=== PATIENT | male | born 1960 | race African-American/Black ===

== ENCOUNTER 2018-10-27 11:39 | Emergency (ER) | payer OTHER ==
[2018-10-27] MEDS ORDERED: ACETAMINOPHEN 325 MG TABLET PO ONE (11:58)
[2018-10-27] MEDS ORDERED: HYDROCODONE/ACETAMINOPHEN 10-325 MG TABLET PO ONE (12:11)
--- NOTE | 2018-10-27 12:24 | RADIOLOGY REPORT (SQ) ---
EXAM DESCRIPTION: ANKLE LEFT COMPLETE COMPLETED DATE/TIME: 10/27/2018 12:15 pm REASON FOR STUDY: Fall, injury to ankle. Pain to left ankle. COMPARISON: None. NUMBER OF VIEWS: Three views. TECHNIQUE: AP, lateral, and oblique radiographic images acquired of the left ankle. LIMITATIONS: None. FINDINGS: MINERALIZATION: Normal. BONES: There is a trimalleolar fracture of the left ankle, with oblique fracture of the distal left f ibula, fracture of the medial malleolus, and fracture of the posterior malleolus. JOINTS: No effusions. Mild widening of the ankle mortise. SOFT TISSUES: Diffuse soft tissue swelling about the left ankle. OTHER: No other significant finding. IMPRESSION: Trimalleolar fracture of the left ankle. TECHNICAL DOCUMENTATION: JOB ID: [id number] All Rights Reserved Reading location - IP/workstation name: [email or web address]
--- NOTE | 2018-10-27 13:01 | ER Document Report ---
HPI - HPI Patient complains to provider of: Left ankle pain Time Seen by Provider: 10/27/18 12:06 Pain Level: 4 Context: Patient is a 58-year-old male presenting to the emergency department after missing a step and everting his left ankle. Patient states he immediately felt pain but was able to put pressure on the left ankle in order to get up off the ground and sit down. Patient denies hitting his head, neck, back. Patient denies any loss of consciousness or vomiting. Patient states he only has pain in his Entire left ankle. Past medical history: Coronary artery disease with stent placement, CHF, hypertension, diabetes, torn ligaments in the left foot Medications: Patient is unsure of medications Allergies: None Patient typically walks with a cane due to the torn ligaments in his left foot - CONSTITUTIONAL Constitutional: DENIES: Fever, Chills - EENT EENT: DENIES: Sore Throat, Ear Pain, Eye problems - NEURO Neurology: DENIES: Headache, Weakness, Vision blurred, Dizzinesss / Vertigo - CARDIOVASCULAR Cardiovascular: DENIES: Chest pain - RESPIRATORY Respiratory: DENIES: Trouble Breathing, Coughing - GASTROINTESTINAL Gastrointestinal: DENIES: Abdominal Pain, Black / Bloody Stools - URINARY Urinary: DENIES: Dysuria, Urgency, Frequency - MUSCULOSKELETAL Musculoskeletal: REPORTS: Extremity pain - L ankle with swelling and pain Past Medical History - General Information source: Patient - Social History Smoking Status: Unknown if Ever Smoked Family History: Reviewed & Not Pertinent Patient has suicidal ideation: No Patient has homicidal ideation: No - Past Medical History Cardiac Medical History: Reports: Hx Coronary Artery Disease, Hx Hypertension Pulmonary Medical History: Reports: Hx Bronchitis - IN PAST Denies: Hx Asthma, Hx COPD, Hx Pneumonia Neurological Medical History: Denies: Hx Cerebrovascular Accident, Hx Seizures Renal/ Medical History: Denies: Hx Peritoneal Dialysis Musculoskeletal Medical History: Denies Hx Arthritis Vertical Provider Document - CONSTITUTIONAL Agree With Documented VS: Yes General Appearance: Severe Distress Notes: GENERAL: Alert, interacts well. No acute distress. HEAD: Normocephalic, atraumatic. EYES: Pupils equal, round, and reactive to light. Extraocular movements intact. ENT: Oral mucosa moist, tongue midline. NECK: Full range of motion. Supple. Trachea midline. LUNGS: Clear to auscultation bilaterally, no wheezes, rales, or rhonchi. No respiratory distress. HEART: Regular rate and rhythm. No murmur ABDOMEN: Soft, non-tender. Non-distended. Bowel sounds present in all 4 quadrants. EXTREMITIES: Moves all 4 extremities spontaneously. normal radial and dorsalis pedis pulses bilaterally. Capillary refill less than 2 seconds distally left lower extremity. Swelling noted entire left ankle with pain upon palpation medial and lateral malleolus. Patient denies pain in his left hip or knee. BACK: no cervical, thoracic, lumbar midline tenderness. No saddle anesthesia, normal distal neurovascular exam. NEUROLOGICAL: Alert and oriented x3. Normal speech. cranial nerves II through XII grossly intact. PSYCH: Normal affect, normal mood. SKIN: Warm, dry, normal turgor. No rashes or lesions noted. - INFECTION CONTROL TRAVEL OUTSIDE OF THE [place] IN LAST 30 DAYS: No Course - Re-evaluation Re-evalutation: 10/27/18 12:[address] Dean, orthopedic who states the patient should be admitted to the hospitalist and medically cleared to then go for surgery to fix a trimalleolar fracture in the left ankle. Then talked to the patient who states [facility] and [facility]. Patient does not want to be admitted at this time and does not want surgery at our facility states he [facility]. 10/27/18 13:[address]. Dean who stated to place the pt. in a three sided ankle splint. Posterior short leg and sugar tong/ankle stirrup. Also stated patient needs to be 100% nonweightbearing. States patient [facility]. Discussed with patient at bedside Importance of following up outpatient at the [facility] for surgery to fix the 3 fractures he has in his ankle. Patient and voiced understanding that they need to follow-up with orthopedics outpatient for surgery. Patient states he does not wish for prescription for narcotics, states he has Tylenol and Motrin at home. - Vital Signs Vital signs: Temp Pulse Resp BP Pulse Ox 98.2 F 100 18 165/77 H 96 10/27/18 11:49 10/27/18 11:49 10/27/18 11:49 10/27/18 11:49 10/27/18 11:49 Discharge - Discharge Clinical Impression: Trimalleolar fracture of ankle, closed Qualifiers: Encounter type: initial encounter Laterality: left Qualified Code(s): S82.852A - Displaced trimalleolar fracture of left lower leg, initial encounter for closed fracture Condition: Stable Disposition: HOME, SELF-CARE Instructions: Use of Crutches ([facility]), Ice & Elevation ([facility]) Additional Instructions: As we discussed you have been seen and treated in the emergency department for something called a tri-malleoli or ankle fracture. This means that 3 bones in your ankle are fractured. Typically these fractures need surgery. You have opted to follow-up [facility]. Please follow-up with them as soon as possible. Please take [id number] Tylenol and Motrin for pain. Please use crutches 100% of the time. Please do not bear any weight on this left ankle. Please do not take splint off until you follow-up with orthopedics and they instructed you to. Please return to the emergency room for any other concerning symptoms. Forms: Elevated Blood Pressure [facility]errals[facility] [Primary Care Provider] - Follow up as needed
[2018-10-27 13:32] VITALS: BP 163/87
== END 2018-10-27 13:32 | disposition home or self-care (01) ==
LOC: ER 11:39
PROC: 2W3RX1Z Immobilization of Left Lower Leg using Splint (ICD-10-PCS; principal; 2018-10-27)
DX: S82.852A Displaced trimalleolar fracture of left lower leg, initial encounter for closed fracture (principal); M25.572 Pain in left ankle and joints of left foot; X50.1XXA Overexertion from prolonged static or awkward postures, initial encounter; I25.10 Atherosclerotic heart disease of native coronary artery without angina pectoris; I50.9 Heart failure, unspecified; I11.0 Hypertensive heart disease with heart failure
CPT/HCPCS: 99283

== ENCOUNTER → 2019-02-10 | Outpatient (CLI) | payer OTHER ==
--- NOTE | 2019-02-10 10:39 | RADIOLOGY REPORT (SQ) ---
EXAM DESCRIPTION: CT LT LOWER EXTREMITY WITHOUT COMPLETED DATE/TIME: 02/10/2019 9:28 am REASON FOR STUDY: S82.855D NONDISP TRIMALLEOL FX L LOW LEG, 7THD S82.855D NONDISP TRIMALLEOL FX L L OW LEG, 7THD COMPARISON: None. TECHNIQUE: Axial imaging performed through the left ankle with reformatted coronal and sagittal imag ing windowed for bone and soft tissues. Images saved to PACS. 3D IMAGING: Were 3D images as MIP, SSD, or volume rendering performed at the work station? Yes. All CT scanners at this facility use dose modulation, iterative reconstruction, and/or weight based d osing when appropriate to reduce radiation dose to as low as reasonably achievable (ALARA). [facility]: Dose Right [facility]: CareDose [facility]: Dose Right [facility]: Teradose 4D [facility]: Smart Technologies LIMITATIONS: None. RADIATION DOSE: CT Rad equipment meets quality standard of care and radiation dose reduction techniq ues were employed. CTDIvol: 4.6 mGy. DLP: 103 mGy-cm. mGy. FINDINGS: SOFT TISSUES: No obvious swelling or foreign body. BONES: Trimalleolar fracture status post plate and screw fixation of fibular component. 2 cancellous screws in the medial component. Widening of the medial mortise. There is callus formation. Fractu re lines are still visible. MINERALIZATION: Osteopenia. OTHER: No other significant finding. IMPRESSION: Healing trimalleolar fracture. Intact hardware. TECHNICAL DOCUMENTATION: JOB ID: [id number] Quality ID # [id number]: Final reports with documentation of one or more dose reduction techniques (e.g., Au tomated exposure control, adjustment of the mA and/or kV according to patient size, use of iterative reconstruction technique) 2010 [employer] All Rights Reserved Reading location - IP/workstation name: [email or web address]
== END ==
LOC: RAD 09:08
PROVIDERS: ATTEND Orthopaedic Surgery
DX: S82.855D Nondisplaced trimalleolar fracture of left lower leg, subsequent encounter for closed fracture with routine healing (principal); X58.XXXD Exposure to other specified factors, subsequent encounter

== ENCOUNTER 2019-03-01 18:12 | Emergency (ER) | payer OTHER ==
[2019-03-01] MEDS ORDERED: NORMAL SALINE 1000 ML 1,000 ML IV ONE ×3 (18:30→21:10)
--- NOTE | 2019-03-01 18:35 | ER Document Report ---
ED Medical Screen (RME) - General Chief Complaint: Altered Mental Status Stated Complaint: ALTERED MENTAL STATUS Time Seen by Provider: 03/01/19 18:25 Primary Care Provider: ORLANDO MCCABE MD [Primary Care Provider] - Follow up as needed Mode of Arrival: Wheelchair Information source: Relative - Notes: Patient is a 58-year-old male who is an insulin-dependent diabetic presenting to the emergency department with complaints of altered mental status, high glucose and left ankle wound issue. Patient's states that over the last couple of days patient has had vomiting, loss of control of his bowels, low-grade fevers and elevated glucose. Patient's states she took his glucose today and it read high on their meter. Patient recently had surgery for a left ankle wound, states she thinks it is infected, states there is a very foul smell coming from it. Patient is sitting in a wheelchair, is sluggish and not very interactive. states he is usually alert, oriented and interacts without any difficulty. Patient was able to squeeze both of my hands that he has equal communications director bilaterally and equal strength bilaterally. Patient was able to smile, puff out his cheeks, raise his shoulders and move both of his lower extremities. He has no neurological deficits on the brief assessment done in triage. Patient is tachycardic with heart rate of 127, charge nurse was made aware of need for room. I have greeted and performed a rapid initial assessment of this patient. A comprehensive ED assessment and evaluation of the patient, analysis of test results and completion of the medical decision making process will be conducted by additional ED providers. Dictation of this chart was performed using voice recognition software; therefore, there may be some unintended grammatical errors. TRAVEL OUTSIDE OF THE [place] IN LAST 30 DAYS: No - Related Data Allergies/Adverse Reactions: No Known Allergies Allergy (Verified 03/01/19 18:13) Past Medical History - Social History Chew tobacco use (# tins/day): No Frequency of alcohol use: None Drug Abuse: None - Past Medical History Cardiac Medical History: Reports: Hx Coronary Artery Disease, Hx Hypertension Pulmonary Medical History: Reports: Hx Bronchitis - IN PAST Denies: Hx Asthma, Hx COPD, Hx Pneumonia Neurological Medical History: Denies: Hx Cerebrovascular Accident, Hx Seizures Renal/ Medical History: Denies: Hx Peritoneal Dialysis Musculoskeltal Medical History: Denies Hx Arthritis Physical Exam - Vital signs Vitals: Temp Pulse Resp BP Pulse Ox 99.1 F 127 H 18 129/94 H 94 03/01/19 18:18 03/01/19 18:18 03/01/19 18:18 03/01/19 18:18 03/01/19 18:18 Course - Vital Signs Vital signs: Temp Pulse Resp BP Pulse Ox 99.1 F 127 H 18 129/94 H 94 03/01/19 18:18 03/01/19 18:18 03/01/19 18:18 03/01/19 18:18 03/01/19 18:18 Doctor's Discharge - Discharge Referrals: ORLANDO MCCABE MD [Primary Care Provider] - Follow up as needed
[2019-03-01] MEDS ORDERED: PIPERACILLIN/TAZOBACTAM 3.375 GM VIAL IV ONE (19:14)
[2019-03-01] MEDS ORDERED: VANCOMYCIN HCL INJ 1000 MG VIAL IV ONE (19:15)
[2019-03-01 19:21] LABS: VENOUS BLOOD BASE EXCESS -5.6 mmol/L; VENOUS BLOOD HCO3 20.6 mmol/L (20-32); VENOUS BLOOD PCO2 42.9 mmHg (35-63); VENOUS BLOOD PH 7.3 (7.30-7.42)
[2019-03-01 19:29] LABS: HEMATOCRIT 33.7 % (37.9-51.0); HEMOGLOBIN 10.6 g/dL (13.5-17.0); MEAN CORPUSCULAR HEMOGLOBIN 24.9 pg (27.0-33.4); MEAN CORPUSCULAR HGB CONC 31.5 g/dL (32.0-36.0); MEAN CORPUSCULAR VOLUME 79 fl (80-97); PLATELET COUNT 598 10^3/uL (150-450); RED BLOOD COUNT 4.27 10^6/uL (4.35-5.55); RED CELL DISTRIBUTION WIDTH 18.4 % (11.5-14.0); WHITE BLOOD COUNT 21.9 10^3/uL (4.0-10.5)
[2019-03-01 19:35] LABS: INTERNATIONAL RATION (INR) 1.21; PROTHROMBIN TIME 15.9 SEC (11.4-15.4)
[2019-03-01 19:36] LABS: PARTIAL THROMBOPLASTIN TIME 33.9 SEC (23.5-35.8)
[2019-03-01 19:48] LABS: ABSOLUTE LYMPHOCYTES# (MANUAL) 0.7 10^3/uL (0.5-4.7); ABSOLUTE MONOCYTES # (MANUAL) 0.9 10^3/uL (0.1-1.4); ABSOLUTE NEUTROPHILS# (MANUAL) 20.4 10^3/uL (1.7-8.2); BAND NEUTROPHILS % (MANUAL) 6 % (3-5); BASOPHILS % (MANUAL) 0 % (0-2); EOSINOPHILS % (MANUAL) 0 % (0-6); LYMPHOCYTES % (MANUAL) 3 % (13-45); METAMYELOCYTES % (MANUAL) 1 % (0); MONOCYTES % (MANUAL) 4 % (3-13); SEGMENTED NEUTROPHILS % (MAN) 86 % (42-78); TOTAL CELLS COUNTED 100
[2019-03-01 19:49] LABS: ALANINE AMINOTRANSFERASE 26 U/L (21-72); ALBUMIN 2.9 g/dL (3.5-5.0); ALKALINE PHOSPHATASE 182 U/L (38-126); ANION GAP 19 (5-19); ASPARTATE AMINO TRANSFERASE 19 U/L (17-59); BILIRUBIN,DIRECT 1.1 mg/dL (0.0-0.4); BILIRUBIN,TOTAL 1.1 mg/dL (0.2-1.3); BLOOD UREA NITROGEN 54 mg/dL (7-20); CALCIUM 8.8 mg/dL (8.4-10.2); CARBON DIOXIDE 19 mmol/L (22-30); CHLORIDE 86 mmol/L (98-107); CREATINE KINASE 104 U/L (55-170); POTASSIUM 5.3 mmol/L (3.6-5.0); SODIUM 123.9 mmol/L (137-145)
[2019-03-01 19:50] LABS: PLATELET CLUMPS PRESENT
[2019-03-01] MEDS ORDERED: CLINDAMYCIN 900 MG/D5W RTU 900 MG/50 ML RTUPB IV ONE (19:50)
[2019-03-01 19:51] LABS: TOXIC GRANULATION SLIGHT; TOXIC VACUOLATION PRESENT
[2019-03-01 19:52] LABS: ANISOCYTOSIS 2+; BURR CELLS 1+; SCHISTOCYTES SLIGHT
[2019-03-01 19:53] LABS: HYPOCHROMASIA 1+; POLYCHROMASIA SLIGHT
[2019-03-01 19:54] LABS: TARGET CELLS SLIGHT; TEAR DROP CELLS SLIGHT
[2019-03-01 19:57] LABS: CREATINE KINASE MB 3.15 ng/mL (<4.55)
[2019-03-01 20:00] LABS: GLUCOSE 632 mg/dL (75-110)
--- NOTE | 2019-03-01 20:00 | RADIOLOGY REPORT (SQ) ---
EXAM DESCRIPTION: ANKLE LEFT AP/LATERAL; FOOT LEFT COMPLETE COMPLETED DATE/TIME: 03/01/2019 7:39 pm; 03/01/2019 7:42 pm REASON FOR STUDY: wound . History of diabetes. COMPARISON: Left ankle x-ray 10/27/2018, CT lower extremity 02/10/2019. NUMBER OF VIEWS: Five views. TECHNIQUE: AP and lateral radiographic images acquired of the left ankle. AP, lateral and oblique radiographic images acquired of the left foot. LIMITATIONS: None. FINDINGS: MINERALIZATION: Normal. BONES: Redemonstration of known trimalleolar fracture at the left ankle with orthopedic hardware at t he distal fibula and medial malleolus. No new acute fracture is identified. There is widening of th e medial clear space. SOFT TISSUES: There is diffuse soft tissue swelling with extensive emphysema at the foot and extendin g along the the anterior aspect of the visualized left lower leg. IMPRESSION: 1. Remote postsurgical and posttraumatic changes at the distal tibia and fibula. Wideni ng of the medial clear space at the left ankle, may be seen with deltoid ligament injury. 2. Diffuse soft tissue swelling with extensive subcutaneous emphysema at the left foot and visualized left lower leg, worrisome for necrotizing soft tissue infection/gas gangrene. COMMENT: Pertinent findings on the imaging study reported as a CRITICAL RESULT to SALINA Dooley t19:50 hrs on 03/01/2019. Category of Critical Result: Diffuse soft tissue swelling with extensive subcutaneous emphysema, wor risome for necrotizing soft tissue infection/gas gangrene. TECHNICAL DOCUMENTATION: JOB ID: [id number] OH-[id number] 2010 [employer]- All Rights Reserved Reading location - IP/workstation name: [email or web address]
[2019-03-01 20:07] LABS: TROPONIN I 0.138 ng/mL
--- NOTE | 2019-03-01 20:14 | RADIOLOGY REPORT (SQ) ---
EXAM DESCRIPTION: XR CHEST 1 VIEW COMPLETED DATE/TME: 03/01/2019 18:31 CLINICAL HISTORY: 58 years, Male, ams, fever COMPARISON: None. NUMBER OF VIEWS: One TECHNIQUE: Single frontal view of the chest was obtained portably LIMITATIONS: None. FINDINGS: Cardiac and mediastinal contours are normal. Patchy left mid to lower lung zone opacity is noted. No pleural effusion or pneumothorax. IMPRESSION: Patchy left mid to lower lung zone opacity. Consider atelectasis or pneumonia to include aspiration. copyright 2010 [employer]- All Rights Reserved
[2019-03-01 20:19] LABS: C-REACTIVE PROTEIN 436.1 mg/L (<10.0)
[2019-03-01] MEDS ORDERED: INSULIN REG, HUMAN 100 UNIT/ML 3 ML VIAL (PYX) IV ONE (20:32)
[2019-03-01] MEDS ORDERED: NOREPINEPHRINE BITARTRATE INJ/PF 4 MG/4 ML SDV IV ONE (20:41)
[2019-03-01] MEDS ORDERED: DEXTROSE 5%-WATER 250 ML with NOREPINEPHRINE BITARTRATE 4 MG IV PRN ×2 (20:43)
--- NOTE | 2019-03-01 20:50 | ER Document Report ---
ED General - General Chief Complaint: Altered Mental Status Stated Complaint: ALTERED MENTAL STATUS Time Seen by Provider: 03/01/19 18:25 Primary Care Provider: ORLANDO MCCABE MD [NO LOCAL MD] - Follow up as needed Mode of Arrival: Wheelchair TRAVEL OUTSIDE OF THE [place] IN LAST 30 DAYS: No - HPI Notes: Patient is a 58-year-old gentleman who brought into the emergency department for evaluation with his . The is the primary historian. Evidently she is concerned about the possibility of an infection at his left ankle wound. He suffered a fracture of the left ankle back in October. The was repaired with ORIF and evidently the patient was healing well. Over the last several weeks he has had infection in that area, however. The patient's states she has not really seen the wound in the last several weeks. Over the last several days he seemed confused. He seemed unbalanced on his feet. He has had multiple episodes of diarrhea. She reexamined to the emergency department for evaluation after uncovering the wound and finding it to be extremely foul-smelling. - Related Data Allergies/Adverse Reactions: No Known Allergies Allergy (Verified 03/01/19 18:13) Past Medical History - General Information source: Patient, Relative - - Social History Smoking Status: Current Every Day Smoker Chew tobacco use (# tins/day): No Frequency of alcohol use: None Drug Abuse: None Family History: CAD, DM Patient has suicidal ideation: No Patient has homicidal ideation: No - Past Medical History Cardiac Medical History: Reports: Hx Coronary Artery Disease, Hx Hypertension Pulmonary Medical History: Reports: Hx Bronchitis - IN PAST Denies: Hx Asthma, Hx COPD, Hx Pneumonia Neurological Medical History: Denies: Hx Cerebrovascular Accident, Hx Seizures Endocrine Medical History: Reports: Hx Diabetes Mellitus Type 2 Renal/ Medical History: Denies: Hx Peritoneal Dialysis Musculoskeletal Medical History: Denies Hx Arthritis Review of Systems - Review of Systems -: Yes ROS unobtainable due to patient's medical condition Physical Exam - Vital signs Vitals: Temp Pulse Resp BP Pulse Ox 99.1 F 127 H 18 129/94 H 94 03/01/19 18:18 03/01/19 18:18 03/01/19 18:18 03/01/19 18:18 03/01/19 18:18 - Notes Notes: 58-year-old gentleman appears his stated age, no acute distress. Head is normocephalic and atraumatic. Pupils are equal, round, reactive to light. Oral mucosa slightly dry. Heart is tachycardic and irregular. Lungs are clear to auscultation bilaterally. Abdomen soft, nontender, normoactive bowel sounds. Examination of the left lower extremity yields an 18 cm open wound to the anterior left ankle. There is clear swelling of muscular tissue, and pulsation consistent with gas gangrene. To light touch distally to that. He does have 3+ pitting edema to the mid tibia. There is foul-smelling drainage noted from the wound. Patient is awake and alert, oriented, but occasionally answer some questions slightly and appropriately. He has a very flat affect. Course - Re-evaluation Re-evalutation: 03/01/19 20:51 Patient presents emergency department for evaluation. While he was playing placed on the monitor for a sepsis evaluation, the patient's heart rate dropped down into the 20s and 30s. Pacer pads were put in place. The patient did have multiple bradycardic episodes, but none of these were sustained. Patient's initial blood pressure had been in the 130s-140s. His blood pressure dropped as well, despite IV fluids. I was concerned at first about the possibility of a diabetic foot infection, further covered him for gas gangrene with clindamycin once the images were evaluated. He was also given Zosyn, vancomycin. Further laboratory investigations revealed an elevated glucose, elevated potassium. He was started on an insulin drip. His blood pressure was addressed with Levophed. Patient's creatinine is markedly elevated, significant change from prior study several months ago. At this point, given the extension of this gas gangrene and concern for necrotizing fasciitis, as well as his likely need for potential dialysis, this patient will require transfer. I do not have current nephrology coverage, nor any dialysis beds at this time. Currently awaiting phone calls from multiple tertiary centers. 03/01/19 22:[address] Weiner, pc tech at [facility]. He happily accepted the patient. We are evaluating for potential air transfer. Currently, patient's blood pressure is 109/69. Standing by with potential pr essor, but he remains stable. 03/01/19 22:08 - Vital Signs Vital signs: Temp Pulse Resp BP Pulse Ox 99.1 F 127 H 20 104/64 100 03/01/19 21:30 03/01/19 18:18 03/01/19 21:30 03/01/19 21:30 03/01/19 21:30 - Laboratory Result Diagrams: 03/01/19 18:45 03/01/19 18:45 Laboratory results interpreted by me: 03/01/19 03/01/19 03/01/19 18:45 18:45 18:45 WBC 21.9 H RBC 4.27 L Hgb 10.6 L Hct 33.7 L MCV 79 L MCH 24.9 L MCHC 31.5 L RDW 18.4 H Plt Count 598 H Seg Neuts % (Manual) 86 H Band Neutrophils % 6 H Lymphocytes % (Manual) 3 L Metamyelocytes % 1 H Abs Neuts (Manual) 20.4 H PT Sodium 123.9 L Potassium 5.3 H Chloride 86 L Carbon Dioxide 19 L BUN 54 H Creatinine 6.60 H Est GFR ( Amer) 11 L Est GFR (Non-Af Amer) 9 L Glucose 632 H* POC Glucose Lactic Acid 2.2 H Magnesium 2.4 H Direct Bilirubin 1.1 H Alkaline Phosphatase 182 H C-Reactive Protein 436.1 H Total Protein 6.0 L Albumin 2.9 L Urine Protein Urine Glucose (UA) Urine Ketones Urine Blood Urine Bilirubin Urine Urobilinogen Ur Leukocyte Esterase 03/01/19 03/01/19 03/01/19 18:45 20:44 21:05 WBC RBC Hgb Hct MCV MCH MCHC RDW Plt Count Seg Neuts % (Manual) Band Neutrophils % Lymphocytes % (Manual) Metamyelocytes % Abs Neuts (Manual) PT 15.9 H Sodium Potassium Chloride Carbon Dioxide BUN Creatinine Est GFR ( Amer) Est GFR (Non-Af Amer) Glucose POC Glucose > 550 H* Lactic Acid Magnesium Direct Bilirubin Alkaline Phosphatase C-Reactive Protein Total Protein Albumin Urine Protein 30 H Urine Glucose (UA) >=500 H Urine Ketones TRACE H Urine Blood SMALL H Urine Bilirubin SMALL H Urine Urobilinogen 4.0 H Ur Leukocyte Esterase TRACE H - Diagnostic Test Radiology reviewed: Reports reviewed - Necrotizing fasciitis/gas gangrene spread throughout the foot and ankle, tracking of the tibia. Chest x-ray unremarkable. - EKG Interpretation by Me Additional EKG results interpreted by me: 03/01/19 22:06 Atrial fibrillation with a rate of 127 bpm. Normal axis, borderline prolonged QT. Nonspecific ST changes, ST changes anterolaterally concerning for ischemia.. No old studies for comparison. Critical Care Note - Critical Care Note Total time excluding time spent on procedures (mins): 40 Discharge - Discharge Clinical Impression: Septic shock, Gas gangrene, Hyperglycemia due to type 2 diabetes mellitus, Hyperkalemia, Acute renal failure, Labile heart rate, New onset atrial fibrillation Condition: Serious Disposition: [facility] Admitting Provider: Dr. Weiner Referrals: ORLANDO MCCABE MD [NO LOCAL MD] - Follow up as needed
[2019-03-01] MEDS ORDERED: NORMAL SALINE 1000 ML 1,000 ML IV PRN (20:53)
[2019-03-01 21:24] LABS: APPEARANCE,URINE CLOUDY; BILIRUBIN,URINE SMALL (NEGATIVE); COLOR,URINE AMBER; GLUCOSE, URINE >=500 mg/dL (NEGATIVE); KETONES,URINE TRACE mg/dL (NEGATIVE); LEUKOCYTE ESTERASE,URINE TRACE (NEGATIVE); NITRITE,URINE NEGATIVE (NEGATIVE); PROTEIN,URINE 30 mg/dL (NEGATIVE); URINE SPECIFIC GRAVITY 1.021
[2019-03-02 00:02] VITALS: BP 93/61
--- NOTE | 2019-03-02 23:38 | EKG REPORT ---
SEVERITY:- ABNORMAL ECG - ATRIAL FIBRILLATION, V-RATE 79-147 LOW VOLTAGE IN FRONTAL LEADS PROBABLE LVH WITH SECONDARY REPOL ABNRM CONSIDER INFERIOR INFARCT ST DEPRESSION, CONSIDER ISCHEMIA, ANT-LAT LDS BORDERLINE PROLONGED QT INTERVAL : Confirmed by: Freddy Jovel 02-Mar-2019 23:37:46
== END 2019-03-02 00:16 | disposition short-term general hospital (02) ==
LOC: ER 18:12
DX: A41.9 Sepsis, unspecified organism (principal); R65.21 Severe sepsis with septic shock; E11.52 Type 2 diabetes mellitus with diabetic peripheral angiopathy with gangrene; E11.65 Type 2 diabetes mellitus with hyperglycemia; A48.0 Gas gangrene; N17.9 Acute kidney failure, unspecified; E87.5 Hyperkalemia; I48.91 Unspecified atrial fibrillation; R19.7 Diarrhea, unspecified; F17.200 Nicotine dependence, unspecified, uncomplicated; I25.10 Atherosclerotic heart disease of native coronary artery without angina pectoris; I10 Essential (primary) hypertension; R00.0 Tachycardia, unspecified; Z98.890 Other specified postprocedural states
CPT/HCPCS: 93005; 99285; 96365; 96367; 36415; 87040; 87086; 82553; 82962; 82550; 83735; 85025; 85610; 85730; 86140; 87077; 80053; 81001; 84484; 87186; 82803; 83605; 73600; 71045; 73630; 93010; J1815; J7030; J3370; J2543

== ENCOUNTER 2020-01-24 15:56 | Emergency (ER) | payer OTHER ==
--- NOTE | 2020-01-24 16:11 | ER Document Report ---
ED Medical Screen (RME) - General Chief Complaint: Wound Infection Stated Complaint: RIGHT FOOT INJURY Time Seen by Provider: 01/24/20 16:04 Primary Care Provider: NICK SOSA DO [Primary Care Provider] - Follow up as needed Mode of Arrival: Wheelchair Information source: Patient, Relative Notes: 59-year-old male presented to ED for complaint of a diabetic foot ulcer to the right foot. He is a left [id number] amputation injuries from the and infection due to diabetes he states he does not smoke he occasionally drinks and does not use any illicit drugs. states he has been trying to treat this wound for about a month and she took the compression stocking off and they noticed a lot more drainage than they had been and then today she noticed more drainage again so she was concerned and brought him to the emergency room to have the ulcer reexamined. He states the only pain he has right now is in his back. I have greeted and performed a rapid initial assessment of this patient. A comprehensive ED assessment and evaluation of the patient, analysis of test results and completion of medical decision making process will be conducted by an additional ED providers. TRAVEL OUTSIDE OF THE [place] IN LAST 30 DAYS: No - Related Data Allergies/Adverse Reactions: No Known Allergies Allergy (Verified 01/24/20 16:06) Past Medical History - Past Medical History Cardiac Medical History: Reports: Hx Coronary Artery Disease, Hx Hypertension Pulmonary Medical History: Reports: Hx Bronchitis - IN PAST Denies: Hx Asthma, Hx COPD, Hx Pneumonia Neurological Medical History: Denies: Hx Cerebrovascular Accident, Hx Seizures Endocrine Medical History: Reports: Hx Diabetes Mellitus Type 2 Renal/ Medical History: Denies: Hx Peritoneal Dialysis Musculoskeltal Medical History: Denies Hx Arthritis Physical Exam - Vital signs Vitals: Temp Pulse Resp BP Pulse Ox 97.8 F 76 18 157/83 H 97 01/24/20 16:01 01/24/20 16:01 01/24/20 16:01 01/24/20 16:01 01/24/20 16:01 Course - Vital Signs Vital signs: Temp Pulse Resp BP Pulse Ox 97.8 F 76 18 157/83 H 97 01/24/20 16:01 01/24/20 16:01 01/24/20 16:01 01/24/20 16:01 01/24/20 16:01 Doctor's Discharge - Discharge Referrals: NICK SOSA DO [Primary Care Provider] - Follow up as needed
[2020-01-24 16:47] LABS: ABSOLUTE BASOPHILS # (AUTO) 0.1 10^3/uL (0.0-0.2); ABSOLUTE EOSINOPHILS # (AUTO) 0.2 10^3/uL (0.0-0.6); ABSOLUTE LYMPHOCYTES (AUTO) 2.5 10^3/uL (0.5-4.7); ABSOLUTE MONOCYTES (AUTO) 0.8 10^3/uL (0.1-1.4); ABSOLUTE NEUT (AUTO) 3.8 10^3/uL (1.7-8.2); BASOPHILS % (AUTO) 1.1 % (0-2); EOSINOPHILS % (AUTO) 2.2 % (0-6); HEMATOCRIT 40.2 % (37.9-51.0); HEMOGLOBIN 13.2 g/dL (13.5-17.0); LYMPHOCYTES % (AUTO) 33.9 % (13-45); MEAN CORPUSCULAR HGB CONC 32.9 g/dL (32.0-36.0); MEAN CORPUSCULAR VOLUME 82 fl (80-97); MONOCYTES % (AUTO) 11.1 % (3-13); PLATELET COUNT 313 10^3/uL (150-450); RED CELL DISTRIBUTION WIDTH 15.3 % (11.5-14.0); SEGMENTED NEUTROPHILS % (AUTO) 51.7 % (42-78); TOTAL CELLS COUNTED % (AUTO) 100 %; WHITE BLOOD COUNT 7.4 10^3/uL (4.0-10.5)
--- NOTE | 2020-01-24 16:56 | RADIOLOGY REPORT (SQ) ---
EXAM DESCRIPTION: FOOT RIGHT COMPLETE COMPLETED DATE/TIME: 01/24/2020 4:45 pm REASON FOR STUDY: Right foot ulcer COMPARISON: None. EXAM PARAMETERS: NUMBER OF VIEWS: Three views. TECHNIQUE: AP, lateral and oblique radiographic images acquired of the right foot. LIMITATIONS: None. FINDINGS: MINERALIZATION: Normal. BONES: No acute fracture or dislocation. No worrisome bone lesions. JOINTS: No effusion. SOFT TISSUES: No significant soft tissue swelling. No radiopaque foreign body. OTHER: No other significant finding. IMPRESSION: NO FRACTURE. No significant soft tissue swelling. No radiopaque foreign body. TECHNICAL DOCUMENTATION: JOB ID: [id number] [place]-72 2010 [employer]- All Rights Reserved Reading location - IP/workstation name: [employer]
[2020-01-24 17:05] LABS: ALKALINE PHOSPHATASE 115 U/L (38-126); ANION GAP 11 (5-19); ASPARTATE AMINO TRANSFERASE 29 U/L (17-59); BILIRUBIN,DIRECT 0.2 mg/dL (0.0-0.4); BILIRUBIN,TOTAL 0.9 mg/dL (0.2-1.3); BLOOD UREA NITROGEN 21 mg/dL (7-20); CARBON DIOXIDE 27 mmol/L (22-30); CHLORIDE 101 mmol/L (98-107); GLUCOSE 292 mg/dL (75-110); POTASSIUM 4.6 mmol/L (3.6-5.0); TOTAL PROTEIN 7.3 g/dL (6.3-8.2)
--- NOTE | 2020-01-24 18:40 | ER Document Report ---
ED Wound - General Chief Complaint: Wound Infection Stated Complaint: RIGHT FOOT INJURY Time Seen by Provider: 01/24/20 16:04 Primary Care Provider: NICK SOSA DO [Primary Care Provider] - Follow up as needed Mode of Arrival: Wheelchair Notes: RME HPI: 59-year-old male presented to ED for complaint of a diabetic foot ulcer to the right foot. He is a left [id number] amputation injuries from the and infection due to diabetes he states he does not smoke he occasionally drinks and does not use any illicit drugs. states he has been trying to treat this wound for about a month and she took the compression stocking off and they noticed a lot more drainage than they had been and then today she noticed more drainage again so she was concerned and brought him to the emergency room to have the ulcer reexamined. He states the only pain he has right now is in his back. TRAVEL OUTSIDE OF THE [place] IN LAST 30 DAYS: No - Related Data Allergies/Adverse Reactions: No Known Allergies Allergy (Verified 01/24/20 16:06) Home Medications: gabapentin, amlodipine, ferrous sulfate, venlaxaxine, metoprolol succ, flomax, asa Past Medical History - General Information source: Patient, Relative - Social History Smoking Status: Never Smoker Chew tobacco use (# tins/day): No Frequency of alcohol use: Occasional Drug Abuse: None Family History: CAD, DM Patient has suicidal ideation: No Patient has homicidal ideation: No - Past Medical History Cardiac Medical History: Reports: Hx Coronary Artery Disease, Hx Hypertension Pulmonary Medical History: Reports: Hx Bronchitis - IN PAST Denies: Hx Asthma, Hx COPD, Hx Pneumonia Neurological Medical History: Denies: Hx Cerebrovascular Accident, Hx Seizures Endocrine Medical History: Reports: Hx Diabetes Mellitus Type 2 Renal/ Medical History: Denies: Hx Peritoneal Dialysis Musculoskeletal Medical History: Denies Hx Arthritis Review of Systems - Review of Systems Constitutional: No symptoms reported EENT: No symptoms reported Cardiovascular: No symptoms reported Respiratory: No symptoms reported Gastrointestinal: No symptoms reported Genitourinary: No symptoms reported Male Genitourinary: No symptoms reported Musculoskeletal: No symptoms reported Skin: See HPI Hematologic/Lymphatic: No symptoms reported Neurological/Psychological: No symptoms reported Physical Exam - Vital signs Vitals: Temp Pulse Resp BP Pulse Ox 97.8 F 76 18 157/83 H 97 01/24/20 16:01 01/24/20 16:01 01/24/20 16:01 01/24/20 16:01 01/24/20 16:01 - Notes Notes: PHYSICAL EXAMINATION: GENERAL: Well-appearing, well-nourished and in no acute distress. HEAD: Atraumatic, normocephalic. EYES: Pupils equal round extraocular movements intact, conjunctiva are normal. ENT: Nares patent NECK: Normal range of motion LUNGS: No respiratory distress Musculoskeletal: Normal range of motion NEUROLOGICAL: Normal speech, normal gait. PSYCH: Normal mood, normal affect. SKIN: Diabetic ulcer noted to lateral aspect of right foot, slight surrounding erythema, no skin breakdown noted. No foul smell. Strong dorsalis pedis pulse. Course - Re-evaluation Re-evalutation: Foot X-Ray 01/24/20 16:11 IMPRESSION: NO FRACTURE. No significant soft tissue swelling. No radiopaque foreign body. Microbiology 01/24/20 19:17 Gram Stain - Preliminary Foot - Right Wound Culture - Preliminary 01/24/20 18:19 Urine Culture - Final Clean Catch Midstream Klebsiella Pneumoniae Laboratory 01/24/20 01/24/20 01/24/20 16:25 16:25 18:19 WBC 7.4 RBC 4.90 Hgb 13.2 L Hct 40.2 MCV 82 MCH 27.0 MCHC 32.9 RDW 15.3 H Plt Count 313 Lymph % (Auto) 33.9 [place] % (Auto) 11.1 Eos % (Auto) 2.2 Baso % (Auto) 1.1 Absolute Neuts (auto) 3.8 Absolute Lymphs (auto) 2.5 Absolute Monos (auto) 0.8 Absolute Eos (auto) 0.2 Absolute Basos (auto) 0.1 Seg Neutrophils % 51.7 Sodium 138.5 Potassium 4.6 Chloride 101 Carbon Dioxide 27 Anion Gap 11 BUN 21 H Creatinine 1.63 H Est GFR ( Amer) 53 L Est GFR (MDRD) Non-Af 44 L Glucose 292 H Calcium 9.0 Total Bilirubin 0.9 Direct Bilirubin 0.2 Neonat Total Bilirubin Not Reportable Neonat Direct Bilirubin Not Reportable Neonat Indirect Bili Not Reportable AST 29 ALT 33 Alkaline Phosphatase 115 Total Protein 7.3 Albumin 4.0 Urine Color HALIMA Urine Appearance CLOUDY Urine pH 6.0 Ur Specific [place] 1.009 Urine Protein 100 H Urine Glucose (UA) >=500 H Urine Ketones NEGATIVE Urine Blood MODERATE H Urine Nitrite (Reflex) NEGATIVE Urine Bilirubin NEGATIVE Urine Urobilinogen NEGATIVE Leukocyte Esterase Rfl MODERATE H Urine RBC (Auto) 15 Urine Bacteria (Auto) 3+ Urine WBC (Reflex) > 182 Urine WBC Clumps MOD Squamous Epi Cells Auto <1 Urine Mucus (Auto) RARE Urine Ascorbic Acid NEGATIVE - Vital Signs Vital signs: Temp Pulse Resp BP Pulse Ox 97.8 F 71 17 131/74 H 98 01/24/20 19:30 01/24/20 19:30 01/24/20 19:30 01/24/20 19:30 01/24/20 19:30 - Laboratory Result Diagrams: 01/24/20 16:25 01/24/20 16:25 Laboratory results interpreted by me: 01/24/20 01/24/20 01/24/20 16:25 16:25 18:19 Hgb 13.2 L RDW 15.3 H BUN 21 H Creatinine 1.63 H Est GFR ( Amer) 53 L Est GFR (MDRD) Non-Af 44 L Glucose 292 H Urine Protein 100 H Urine Glucose (UA) >=500 H Urine Blood MODERATE H Leukocyte Esterase Rfl MODERATE H Discharge - Discharge Clinical Impression: Diabetic foot ulcer Qualifiers: Diabetic foot ulcer location: midfoot Diabetes mellitus type: type 2 Lateral ity: right Non-pressure ulcer stage: unspecified non-pressure ulcer stage Qualified Code(s): E11.621 - Type 2 diabetes mellitus with foot ulcer; L97.419 - Non-pressure chronic ulcer of right heel and midfoot with unspecified severity UTI (urinary tract infection) Qualifiers: Urinary tract infection type: site unspecified Hematuria presence: without hematuria Qualified Code(s): N39.0 - Urinary tract infection, site not specified Condition: Stable Disposition: HOME, SELF-CARE Additional Instructions: Please take medications as prescribed. I sent them electronically to the [facility] drugstore that you have chosen however I believe you may be able to get them for free at [facility] as they have a free antibiotic program for certain antibiotics. (I have provided you with a printed copy of the antibiotics in case you choose this option .) I would give them a call and ask. Please keep the appointment you have scheduled with the survey supervisor as this is very important. Return to the emergency department for any new or worsening symptoms. Keep the wound clean and dry. Prescriptions: Sulfamethoxazole/Trimethoprim [Bactrim Ds Tablet] 1 tab PO BID #28 tablet Cephalexin [Keflex] 500 mg PO QID #56 capsule Referrals: NICK SOSA DO [Primary Care Provider] - Follow up as needed
[2020-01-24 18:50] LABS: APPEARANCE,URINE CLOUDY; BILIRUBIN,URINE NEGATIVE (NEGATIVE); COLOR,URINE AMBER; GLUCOSE, URINE >=500 mg/dL (NEGATIVE); KETONES,URINE NEGATIVE (NEGATIVE); PROTEIN,URINE 100 mg/dL (NEGATIVE); URINE SPECIFIC GRAVITY 1.009; UROBILINOGEN,URINE NEGATIVE mg/dL (<2.0)
[2020-01-24 19:31] VITALS: BP 131/74
== END 2020-01-24 19:31 | disposition home or self-care (01) ==
LOC: ER 15:56
DX: N39.0 Urinary tract infection, site not specified (principal); E11.621 Type 2 diabetes mellitus with foot ulcer; L97.419 Non-pressure chronic ulcer of right heel and midfoot with unspecified severity; I25.10 Atherosclerotic heart disease of native coronary artery without angina pectoris; I10 Essential (primary) hypertension; Z89.612 Acquired absence of left leg above knee
CPT/HCPCS: 36415; 80053; 81001; 85025; 87070; 87086; 87088; 87186; 87205; 99283

== ENCOUNTER → 2020-02-12 | Outpatient (CLI) | payer OTHER ==
[2020-02-12 08:59] LABS: ALBUMIN 3.9 g/dL (3.5-5.0); ALKALINE PHOSPHATASE 108 U/L (38-126); ANION GAP 10 (5-19); ASPARTATE AMINO TRANSFERASE 32 U/L (17-59); BILIRUBIN,DIRECT 0.3 mg/dL (0.0-0.4); BILIRUBIN,TOTAL 0.5 mg/dL (0.2-1.3); BLOOD UREA NITROGEN 24 mg/dL (7-20); CALCIUM 9.2 mg/dL (8.4-10.2); CARBON DIOXIDE 21 mmol/L (22-30); CHLORIDE 108 mmol/L (98-107); CHOLESTEROL 164.48 mg/dL (0-200); GLUCOSE 95 mg/dL (75-110); POTASSIUM 5.4 mmol/L (3.6-5.0); TOTAL PROTEIN 7.4 g/dL (6.3-8.2); TRIGLYCERIDES 101 mg/dL (<150)
[2020-02-12 09:12] LABS: DIRECT LDL 108 mg/dL (<100)
== END ==
LOC: OD 07:06
PROVIDERS: ATTEND Specialist
DX: I25.10 Atherosclerotic heart disease of native coronary artery without angina pectoris (principal); I10 Essential (primary) hypertension; E08.40 Diabetes mellitus due to underlying condition with diabetic neuropathy, unspecified; F32.9 Major depressive disorder, single episode, unspecified; E78.5 Hyperlipidemia, unspecified; I25.5 Ischemic cardiomyopathy; I48.92 Unspecified atrial flutter; I25.2 Old myocardial infarction; R01.1 Cardiac murmur, unspecified; R94.31 Abnormal electrocardiogram [ECG] [EKG]; Z98.61 Coronary angioplasty status; Z79.899 Other long term (current) drug therapy; Z89.612 Acquired absence of left leg above knee
CPT/HCPCS: 36415; 80048; 80061; 80076; 83036

== ENCOUNTER 2020-04-09 20:04 | Inpatient (IN) | payer OTHER, MEDICARE ==
--- NOTE | 2020-04-09 20:39 | ER Document Report ---
ED Medical Screen (RME) - General Chief Complaint: Foot Pain Stated Complaint: POSSIBLE RIGHT FOOT ULCER Time Seen by Provider: 04/09/20 20:29 Primary Care Provider: HANNAH STRATTON MD [Primary Care Provider] - Follow up as needed Notes: Patient is a 59-year-old male who presents to the emergency department with a wound to his right lateral foot. Patient states that he has had this wound since January. Patient states that he has seen vascular surgery and they suspect that he has some blockages in his right foot, but states that no actual imaging has been done. Patient had a foot x-ray here and back in January. This vascular surgeon melia labs started him on Cipro. He took 1 day of ciprofloxacin. Patient had a BKA on his left leg. Exam: Purulent drainage noted from right lateral foot. I have greeted and performed a rapid initial assessment of this patient. A comprehensive ED assessment and evaluation of the patient, analysis of test results and completion of medical decision making process will be conducted by an additional ED providers. TRAVEL OUTSIDE OF THE [place] IN LAST 30 DAYS: No - Related Data Allergies/Adverse Reactions: No Known Allergies Allergy (Verified 01/24/20 16:06) Past Medical History - Past Medical History Cardiac Medical History: Reports: Hx Coronary Artery Disease, Hx Hypertension Pulmonary Medical History: Reports: Hx Bronchitis - IN PAST Denies: Hx Asthma, Hx COPD, Hx Pneumonia Neurological Medical History: Denies: Hx Cerebrovascular Accident, Hx Seizures Endocrine Medical History: Reports: Hx Diabetes Mellitus Type 2 Renal/ Medical History: Denies: Hx Peritoneal Dialysis Musculoskeltal Medical History: Denies Hx Arthritis Physical Exam - Vital signs Vitals: Temp Pulse Resp BP Pulse Ox 98.5 F 90 18 107/57 L 93 04/09/20 20:13 04/09/20 20:13 04/09/20 20:13 04/09/20 20:13 04/09/20 20:13 Course - Vital Signs Vital signs: Temp Pulse Resp BP Pulse Ox 98.5 F 90 18 107/57 L 93 04/09/20 20:13 04/09/20 20:13 04/09/20 20:13 04/09/20 20:13 04/09/20 20:13 Doctor's Discharge - Discharge Referrals: HANNAH STRATTON MD [Primary Care Provider] - Follow up as needed
[2020-04-09 21:14] LABS: ABSOLUTE BASOPHILS # (AUTO) 0.1 10^3/uL (0.0-0.2); ABSOLUTE LYMPHOCYTES (AUTO) 1.2 10^3/uL (0.5-4.7); ABSOLUTE MONOCYTES (AUTO) 1.7 10^3/uL (0.1-1.4); ABSOLUTE NEUT (AUTO) 15.6 10^3/uL (1.7-8.2); BASOPHILS % (AUTO) 0.3 % (0-2); HEMOGLOBIN 10.6 g/dL (13.5-17.0); LYMPHOCYTES % (AUTO) 6.3 % (13-45); MEAN CORPUSCULAR HEMOGLOBIN 26.4 pg (27.0-33.4); MEAN CORPUSCULAR HGB CONC 32.1 g/dL (32.0-36.0); MEAN CORPUSCULAR VOLUME 82 fl (80-97); MONOCYTES % (AUTO) 9.1 % (3-13); PLATELET COUNT 441 10^3/uL (150-450); RED BLOOD COUNT 4.01 10^6/uL (4.35-5.55); RED CELL DISTRIBUTION WIDTH 15.1 % (11.5-14.0); SEGMENTED NEUTROPHILS % (AUTO) 84.3 % (42-78); TOTAL CELLS COUNTED % (AUTO) 100 %; WHITE BLOOD COUNT 18.5 10^3/uL (4.0-10.5)
[2020-04-09 21:38] LABS: INTERNATIONAL RATION (INR) 1.22; PROTHROMBIN TIME 15.5 SEC (11.4-15.4)
[2020-04-09 21:42] LABS: ALBUMIN 3.3 g/dL (3.5-5.0); ALKALINE PHOSPHATASE 116 U/L (38-126); ANION GAP 13 (5-19); ASPARTATE AMINO TRANSFERASE 26 U/L (17-59); BILIRUBIN,DIRECT 0.1 mg/dL (0.0-0.4); BILIRUBIN,TOTAL 1.1 mg/dL (0.2-1.3); BLOOD UREA NITROGEN 27 mg/dL (7-20); CARBON DIOXIDE 23 mmol/L (22-30); CHLORIDE 96 mmol/L (98-107); TOTAL PROTEIN 6.6 g/dL (6.3-8.2)
[2020-04-09 22:06] LABS: CALCIUM 8.7 mg/dL (8.4-10.2)
--- NOTE | 2020-04-09 22:09 | RADIOLOGY REPORT (SQ) ---
EXAM DESCRIPTION: XR FOOT 3 OR MORE VIEWS COMPLETED DATE/TME: 04/09/2020 20:34 CLINICAL HISTORY: 59 years, Male, right foot wound COMPARISON: Prior study from 01/24/2020. NUMBER OF VIEWS: 3 TECHNIQUE: Frontal, oblique, and lateral radiographs were obtained LIMITATIONS: None. FINDINGS: Visualized is focal soft tissue swelling/gas located about the soft tissues just lateral to the fifth metatarsal base. In addition, there is cortical resorption of bone about the lateral aspect of the fifth metatarsal base in association with a pathologic fracture deformity. Osteopenia is evident. No additional osseous anomalies are appreciated. There is diffuse soft tissue swelling about the dorsum of the hindfoot extending into the forefoot. IMPRESSION: Findings are consistent with osteomyelitis involving the lateral aspect of the fifth metatarsal base. Associated underlying pathologic fracture deformity. Superimposed foci of soft tissue gas at this site could indicate infection with a gas-forming organism. copyright 2010 [employer]- All Rights Reserved
--- NOTE | 2020-04-09 22:42 | RADIOLOGY REPORT (SQ) ---
EXAM DESCRIPTION: US LOWER EXTREMITY ARTERIES LIMITED/UNILATERAL/FOLLOW UP COMPLETED DATE/TME: 04/09/2020 20:33 CLINICAL HISTORY: 59 years Male, right foot wound; possible blockages Comparison: None. TECHNIQUE: Doppler sonogram. Targeted exam for requested parameters. LIMITATIONS: No TERESA. FINDINGS: RIGHT SIDE Peak systolic velocity (PSV) CERTIFICATION AND SELECTION SPECIALIST: PSV: 170 cm/s Deep Femoral: 90 cm/s Proximal SFA: PSV: 20 cm/s Mid SFA: PSV: 40 cm/s Distal SFA: PSV: 70 cm/s Proximal Popliteal: PSV: 40 cm/s Distal Popliteal: PSV: 70 cm/s Anterior Tibial: PSV: 45 cm/s Dorsalis Pedis: PSV: 50 cm/s Other:Atherosclerotic vascular disease. Patent, monophasic flow throughout. Low resistance flow. Impression: Targeted exam for requested parameters.
[2020-04-09] MEDS ORDERED: NORMAL SALINE 1000 ML 1,000 ML IV ONE (22:43)
[2020-04-09] MEDS ORDERED: VANCOMYCIN HCL INJ 1000 MG VIAL IV ONE (23:44)
[2020-04-09] MEDS ORDERED: CEFEPIME 2 GM/D5W RTU 2 GM/50 ML RTUPB IV ONE (23:45)
[2020-04-10] MEDS ORDERED: NORMAL SALINE IV ONE (00:04)
--- NOTE | 2020-04-10 00:16 | ER Document Report ---
Entered by CHENG OSPINA SCRIBE 04/10/20 0001 Acting as scribe for:HUMBLE GUALLPA IV, MD ED Extremity Problem, Lower - General Chief Complaint: Wound Infection Stated Complaint: POSSIBLE RIGHT FOOT ULCER Time Seen by Provider: 04/09/20 20:29 Primary Care Provider: HANNAH STRATTON MD [ACTIVE STAFF] - Follow up as needed Mode of Arrival: Wheelchair Information source: Patient, Relative - Notes: This 59 year old male patient with a history of type 2 diabetes mellitus presents to the ED today accompanied by his with complaints of possible wound infection to his right foot that started x2 months ago. states that although they noticed the wound in January, it has only become worse this past week with increased swelling and discharge. reports that the patient was seen by a vascular specialist x4 days ago and received a topical cream for the wound, but was not given any antibiotics at that time. Patient reports that he had a left AKA in February 2019 due to a left ankle infection. TRAVEL OUTSIDE OF THE [place] IN LAST 30 DAYS: No - Related Data Allergies/Adverse Reactions: No Known Allergies Allergy (Verified 04/09/20 21:34) Home Medications: list copied Past Medical History - General Information source: Patient, Relative - - Social History Smoking Status: Former Smoker Cigarette use (# per day): No Chew tobacco use (# tins/day): No Smoking Education Provided: No Lives with: Spouse/Significant other Family History: Reviewed & Not Pertinent, CAD, DM Patient has suicidal ideation: No Patient has homicidal ideation: No - Past Medical History Cardiac Medical History: Reports: Hx Coronary Artery Disease, Hx Hypertension Pulmonary Medical History: Reports: Hx Bronchitis - IN PAST Endocrine Medical History: Reports: Hx Diabetes Mellitus Type 2 Past Surgical History: Reports: Hx Orthopedic Surgery - Left AKA February 2020 Review of Systems - Review of Systems Constitutional: No symptoms reported EENT: No symptoms reported Cardiovascular: No symptoms reported Respiratory: No symptoms reported Gastrointestinal: No symptoms reported Genitourinary: No symptoms reported Male Genitourinary: No symptoms reported Musculoskeletal: See HPI, Other - Right foot pain Skin: See HPI, Other - Right foot wound with swelling and discharge Hematologic/Lymphatic: No symptoms reported Neurological/Psychological: No symptoms reported -: Yes All other systems reviewed and negative Physical Exam - Vital signs Vitals: Temp Pulse Resp BP Pulse Ox 98.5 F 90 18 107/57 L 93 04/09/20 20:13 04/09/20 20:13 04/09/20 20:13 04/09/20 20:13 04/09/20 20:13 - General General appearance: Alert In distress: None - HEENT Head: Normocephalic, Atraumatic Eyes: Normal Pupils: PERRL - Respiratory Respiratory status: No respiratory distress Chest status: Nontender Breath sounds: Normal Chest palpation: Normal - Cardiovascular Rhythm: Regular Heart sounds: Normal auscultation Murmur: No Friction rub: No Gallop: None auscultated - Abdominal Inspection: Normal Distension: No distension Bowel sounds: Normal Tenderness: Nontender - Abdomen soft Organomegaly: No organomegaly - Back Back: Normal, Nontender - Extremities General upper extremity: Normal inspection General lower extremity: Other - Left AKA Foot: Edema - Right foot is diffusely swollen, Other - Neurological Neuro grossly intact: Yes Orientation: AAOx4 - Psychological Associated symptoms: Normal affect, Normal mood - Skin Skin irregularity: other - 25 cm ulceration noted to right lateral surface of right foot with purulent appearing discharge and surrounding moderate erythema Course - Re-evaluation Re-evalutation: 04/10/20 00:48 Results of ED MSE discussed with patient and patient's significant other. All questions were answered. - Vital Signs Vital signs: Temp Pulse Resp BP Pulse Ox 98.3 F 90 13 113/80 98 04/10/20 00:25 04/09/20 20:13 04/09/20 23:01 04/09/20 23:01 04/09/20 23:01 - Laboratory Result Diagrams: 04/09/20 20:52 04/09/20 20:52 Laboratory results interpreted by me: 04/09/20 04/09/20 04/09/20 20:52 20:52 20:52 WBC 18.5 H RBC 4.01 L Hgb 10.6 L Hct 33.0 L MCH 26.4 L RDW 15.1 H Lymph % (Auto) 6.3 L Absolute Neuts (auto) 15.6 H Absolute Monos (auto) 1.7 H Seg Neutrophils % 84.3 H PT 15.5 H Sodium 131.9 L Chloride 96 L BUN 27 H Creatinine 2.32 H Est GFR ( Amer) 35 L Est GFR (MDRD) Non-Af 29 L Glucose 538 H* Lactic Acid Albumin 3.3 L 04/09/20 20:52 WBC RBC Hgb Hct MCH RDW Lymph % (Auto) Absolute Neuts (auto) Absolute Monos (auto) Seg Neutrophils % PT Sodium Chloride BUN Creatinine Est GFR ( Amer) Est GFR (MDRD) Non-Af Glucose Lactic Acid 2.5 H Albumin - Diagnostic Test Radiology reviewed: Reports reviewed - Consults dr. elena Time consulted: 00:14 - stated he would consult on patient and asked pt to be made npo Reason for consultation: 04/10/20 00:49 osteomyelitis Consulted provider: will see as inpatient dr. francisco hammond Time consulted: 00:42 - agreed to admit patient Reason for consultation: 04/10/20 00:50 osteomyelitis Consulted provider: will see as inpatient Discharge - Discharge Clinical Impression: Gas gangrene Osteomyelitis Qualifiers: Osteomyelitis type: unspecified type Osteomyelitis location: foot Laterality: right Qualified Code(s): M86.9 - Osteomyelitis, unspecified Condition: Good Disposition: ADMITTED INPATIENT Admitting Provider: Tobias (Hospitalist) Unit Admitted: Telemetry Referrals: HANNAH STRATTON MD [ACTIVE STAFF] - Follow up as needed I personally performed the services described in the documentation, reviewed and edited the documentation which was dictated to the scribe in my presence, and it accurately records my words and actions.
[2020-04-10] MEDS ORDERED: GLUCAGON,HUMAN RECOMB 1 MG INJ IM PRN (00:52)
[2020-04-10] MEDS ORDERED: MAGNESIUM HYDROXIDE SUSP 30 ML UDCUP PO PRN (00:52)
[2020-04-10] MEDS ORDERED: MAG HYDROX/AL HYDROX/SIMETH SUSP 30 ML UDCUP PO PRN (00:52)
[2020-04-10] MEDS ORDERED: ONDANSETRON HCL INJ/PF 4 MG/2 ML SDV IV PRN ×2 (00:52→10:40)
[2020-04-10] MEDS ORDERED: DEXTROSE 50%-WATER 25 GM/50 ML DISP.SYRIN IV PRN ×2 (00:52)
[2020-04-10] MEDS ORDERED: DEXTROSE 40% GEL 15 GM TUBE PO PRN ×2 (00:52)
[2020-04-10] MEDS ORDERED: HYDRALAZINE HCL INJ/PF 20 MG/1 ML SDV IV PRN (00:52)
[2020-04-10] MEDS ORDERED: HEPARIN SOD (PORCINE) 5,000 UNIT/ML 1 ML VIAL SUBCUT ONE (01:30)
--- NOTE | 2020-04-10 05:27 | PDOC H&P ---
History of Present Illness Admission Date/PCP: 04/10/20 01:02 Patient complains of: Right foot ulcer History of Present Illness: VITO FRANCISCO JR is a 59 year old male with a past medical history of chronic kidney disease stage IV, diabetes, peripheral vascular disease status post left AKA and hypertension. He presents with 2 months of worsening right foot ulcer despite management at the wound care clinic prompting evaluation the emergency department for increased erythema and pain. In the emergency department he is found to have gas gangrene on imaging with leukocytosis. Surgery is consulted recommending amputation he is referred to the hospitalist for admission. Past Medical History Cardiac Medical History: Reports: Coronary Artery Disease, Hypertension Pulmonary Medical History: Reports: Bronchitis - IN PAST Denies: Asthma, Chronic Obstructive Pulmonary Disease (COPD), Pneumonia Neurological Medical History: Denies: Seizures Endocrine Medical History: Reports: Diabetes Mellitus Type 2 Musculoskeltal Medical History: Denies: Arthritis Psychiatric Medical History: Denies: Alcohol Dependency, Depression, Tobacco Dependency Hematology: Denies: Anemia Past Surgical History Past Surgical History: Reports: Orthopedic Surgery - Left AKA February 2020 Social History Lives with: Spouse/Significant other Smoking Status: Former Smoker - Advance Directive Resuscitation Status: Full Code Family History Family History: CAD, DM Parental Family History Reviewed: Yes Children Family History Reviewed: Yes Sibling(s) Family History Reviewed.: Yes Medication/Allergy Home Medications: Amlodipine Besylate [Norvasc 10 mg Tablet] 10 mg PO DAILY 08/16/16 Aspirin [Aspirin 81 mg Chewable Tablet] 81 mg PO DAILY 08/16/16 Gabapentin [Gralise] 600 mg PO QPM 08/16/16 Insulin Glargine,Hum.rec.anlog [Lantus Insulin 100 Unit/1 ml 10 ml] 12 unit SUBCUT QHS 04/10/20 Isosorbide Mononitrate [Imdur 30 mg Tablet.er] 30 mg PO DAILY 04/10/20 Losartan Potassium [Cozaar 25 mg Tablet] 25 mg PO DAILY 04/10/20 Metoprolol Succinate [Toprol Xl 50 mg Tab.sr] 50 mg PO DAILY 04/10/20 Tamsulosin HCl [Flomax] 0.4 mg PO DAILY 04/10/20 Venlafaxine HCl 37.5 mg PO DAILY 04/10/20 Allergies/Adverse Reactions: No Known Allergies Allergy (Verified 04/09/20 21:34) Review of Systems Constitutional: ABSENT: chills, fever(s), headache(s), weight gain, weight loss Eyes: ABSENT: visual disturbances Ears: ABSENT: hearing changes Cardiovascular: ABSENT: chest pain, dyspnea on exertion, edema, orthropnea, palpitations Respiratory: ABSENT: cough, hemoptysis Gastrointestinal: ABSENT: abdominal pain, constipation, diarrhea, hematemesis, hematochezia, nausea, vomiting Genitourinary: ABSENT: dysuria, hematuria Musculoskeletal: ABSENT: joint swelling Integumentary: ABSENT: rash, wounds Neurological: ABSENT: abnormal gait, abnormal speech, confusion, dizziness, focal weakness, syncope Psychiatric: ABSENT: anxiety, depression, homidical ideation, suicidal ideation Endocrine: ABSENT: cold intolerance, heat intolerance, polydipsia, polyuria Hematologic/Lymphatic: ABSENT: easy bleeding, easy bruising Physical Exam Vital Signs: Temp Pulse Resp BP Pulse Ox 99.4 F 105 H 20 140/67 H 93 04/10/20 02:57 04/10/20 02:57 04/10/20 02:57 04/10/20 02:57 04/10/20 02:57 Intake & Output 04/08/20 04/09/20 04/10/20 11:59 11:59 11:59 Intake Total 1050 Balance 1050 Weight 78 kg General appearance: PRESENT: no acute distress, well-developed, well-nourished Head exam: PRESENT: atraumatic, normocephalic Eye exam: PRESENT: conjunctiva pink, EOMI, PERRLA. ABSENT: scleral icterus Ear exam: PRESENT: normal external ear exam Mouth exam: PRESENT: moist, tongue midline Neck exam: ABSENT: carotid bruit, JVD, lymphadenopathy, thyromegaly Respiratory exam: PRESENT: clear to auscultation king. ABSENT: rales, rhonchi, wheezes Cardiovascular exam: PRESENT: RRR. ABSENT: diastolic murmur, rubs, systolic mu rmur Pulses: PRESENT: normal dorsalis pedis pul Vascular exam: PRESENT: normal capillary refill GI/Abdominal exam: PRESENT: normal bowel sounds, soft. ABSENT: distended, guarding, mass, organolmegaly, rebound, tenderness Rectal exam: PRESENT: deferred Extremities exam: PRESENT: full ROM, joint swelling, pedal edema, tenderness - Right foot. ABSENT: calf tenderness, clubbing Musculoskeletal exam: PRESENT: tenderness - Right foot with 25 cm lateral ulceration with purulent discharge. ABSENT: ambulatory Neurological exam: PRESENT: alert, awake, oriented to person, oriented to place, oriented to time, oriented to situation, CN II-XII grossly intact. ABSENT: motor sensory deficit Psychiatric exam: PRESENT: appropriate affect, normal mood. ABSENT: homicidal ideation, suicidal ideation Skin exam: PRESENT: dry, intact, warm, other - Right foot with 25 cm lateral ulc eration with purulent discharge. ABSENT: cyanosis, rash Results Laboratory Results: 04/09/20 20:52 04/09/20 20:52 04/09/20 04/09/20 04/09/20 20:52 20:52 20:52 WBC 18.5 H RBC 4.01 L Hgb 10.6 L Hct 33.0 L MCV 82 MCH 26.4 L MCHC 32.1 RDW 15.1 H Plt Count 441 Seg Neutrophils % 84.3 H Sodium 131.9 L Potassium 5.0 Chloride 96 L Carbon Dioxide 23 Anion Gap 13 BUN 27 H Creatinine 2.32 H Est GFR ( Amer) 35 L Glucose 538 H* Lactic Acid 2.5 H Calcium 8.7 Total Bilirubin 1.1 AST 26 Alkaline Phosphatase 116 Total Protein 6.6 Albumin 3.3 L 04/10/20 04/10/20 01:06 04:06 WBC RBC Hgb Hct MCV MCH MCHC RDW Plt Count Seg Neutrophils % Sodium Potassium Chloride Carbon Dioxide Anion Gap BUN Creatinine Est GFR ( Amer) Glucose Lactic Acid 1.3 1.4 Calcium Total Bilirubin AST Alkaline Phosphatase Total Protein Albumin Impressions: Foot X-Ray 04/09/20 20:34 IMPRESSION: Findings are consistent with osteomyelitis involving the lateral aspect of the fifth metatarsal base. Associated underlying pathologic fracture deformity. Superimposed foci of soft tissue gas at this site could indicate infection with a gas-forming organism. copyright 2010 [employer]- All Rights Reserved Assessment and Plan - Diagnosis (1) Chronic kidney disease Qualifiers: Chronic kidney disease stage: stage 4 (severe) Qualified Code(s): N18.4 - Chronic kidney disease, stage 4 (severe) Is this a current diagnosis for this admission?: Yes Plan: Avoid nephrotoxic meds and doses, 2 L saline challenge, follow-up chemistry (2) Diabetes Is this a current diagnosis for this admission?: Yes Plan: Lantus with Humalog sliding scale ordered, follow-up A1c (3) Hypertension Is this a current diagnosis for this admission?: Yes Plan: Outpatient regiment ordered with hydralazine as needed (4) Gas gangrene Is this a current diagnosis for this admission?: Yes Plan: Secondary to diabetic foot ulcer and peripheral vascular disease unamenable to conservative management, patient has no immediate reversible risks of cardiopulmonary complications justifying a delay in surgery. Follow-up surgery consult (5) Osteomyelitis Qualifiers: Osteomyelitis type: unspecified type Osteomyelitis location: foot [place]ality: right Qualified Code(s): M86.9 - Osteomyelitis, unspecified Is this a current diagnosis for this admission?: Yes Plan: Secondary to diabetic foot ulcer and peripheral vascular disease, unamenable to conservative management, patient has no immediate reversible risks of cardiopulmonary complications justifying a delay in surgery. Follow-up surgery consult - Time Time Spent with patient: 25-34 minutes - Inpatient Certification Medical Necessity: Need Close Monitoring Due to Risk of Patient Decompensation
[2020-04-10] MEDS: INSULIN LISPRO 100 UNIT/ML 3 ML VIAL SUBCUT SCH ×4 (06:51→22:09)
--- NOTE | 2020-04-10 07:50 | PDOC CONSULTATION ---
Consultation Consult Date: 04/10/20 Provider Consulted: SURGICAL SURGICALIST MD Consult reason:: Severe diabetic foot infection, PVD History of Present Illness Admission Date/PCP: 04/10/20 01:02 History of Present Illness: VITO FRANCISCO JR is a 59 year old male with uncontrolled diabetes, and a longstanding history of a right sided diabetic foot ulcer. 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 The patient recently saw vascular surgeon in [place] (he does not remember their name). The patient follows with the wound care clinic, where Dr. Paris performs wound care on the foot. The patient reports that he began having worsening erythema, drainage, and pain. He presented to the emergency department for evaluation. He reports his pain is 6 out of 10. It does not radiate. Nothing makes it better. Palpation and movement make it worse. He reports subjective fevers and chills, and pain in the right foot. He also reports foul-smelling drainage. He denies chest pain, shortness of breath, nausea, vomiting, melena, hematochezia, hematemesis, abdominal pain, dizziness, orthostasis, sore throat, cough. Past Medical History Cardiac Medical History: Reports: Coronary Artery Disease, Hypertension Pulmonary Medical History: Reports: Bronchitis - IN PAST Denies: Asthma, Chronic Obstructive Pulmonary Disease (COPD), Pneumonia Neurological Medical History: Denies: Seizures Endocrine Medical History: Reports: Diabetes Mellitus Type 2 Musculoskeltal Medical History: Denies: Arthritis Psychiatric Medical History: Denies: Alcohol Dependency, Depression, Tobacco Dependency Hematology: Denies: Anemia Past Surgical History Past Surgical History: Reports: Orthopedic Surgery - Left AKA February 2020 Social History Lives with: Spouse/Significant other Smoking Status: Former Smoker Hx Recreational Drug Use: No Hx Prescription Drug Abuse: No - Advance Directive Resuscitation Status: Full Code Family History Family History: CAD, DM Parental Family History Reviewed: Yes Children Family History Reviewed: Yes Sibling(s) Family History Reviewed.: Yes Medication/Allergy Home Medications: Amlodipine Besylate [Norvasc 10 mg Tablet] 10 mg PO DAILY 08/16/16 Aspirin [Aspirin 81 mg Chewable Tablet] 81 mg PO DAILY 08/16/16 Gabapentin [Gralise] 600 mg PO QPM 08/16/16 Insulin Glargine,Hum.rec.anlog [Lantus Insulin 100 Unit/1 ml 10 ml] 12 unit SUBCUT QHS 04/10/20 Isosorbide Mononitrate [Imdur 30 mg Tablet.er] 30 mg PO DAILY 04/10/20 Losartan Potassium [Cozaar 25 mg Tablet] 25 mg PO DAILY 04/10/20 Metoprolol Succinate [Toprol Xl 50 mg Tab.sr] 50 mg PO DAILY 04/10/20 Tamsulosin HCl [Flomax] 0.4 mg PO DAILY 04/10/20 Venlafaxine HCl 37.5 mg PO DAILY 04/10/20 Allergies/Adverse Reactions: No Known Allergies Allergy (Verified 04/09/20 21:34) Review of Systems Constitutional: PRESENT: chills, fever(s). ABSENT: anorexia, fatigue Eyes: ABSENT: visual disturbances Ears: ABSENT: hearing changes Nose, Mouth, and Throat: ABSENT: sore throat Cardiovascular: ABSENT: chest pain Respiratory: ABSENT: cough, dyspnea Gastrointestinal: ABSENT: abdominal pain Genitourinary: ABSENT: dysuria Musculoskeletal: ABSENT: back pain Integumentary: PRESENT: erythema - Right foot. ABSENT: pruritus, rash Neurological: ABSENT: confusion, convulsions, dizziness Psychiatric: ABSENT: anxiety, depression Endocrine: ABSENT: cold intolerance, heat intolerance Hematologic/Lymphatic: ABSENT: easy bleeding, easy bruising Physical Exam Vital Signs: Temp Pulse Resp BP Pulse Ox 99.4 F 105 H 20 140/67 H 93 04/10/20 02:57 04/10/20 02:57 04/10/20 02:57 04/10/20 02:57 04/10/20 02:57 Intake & Output 04/09/20 04/10/20 04/11/20 06:59 06:59 06:59 Intake Total 1050 Balance 1050 Weight 78 kg General appearance: PRESENT: no acute distress, cooperative Head exam: PRESENT: atraumatic, normocephalic Eye exam: PRESENT: EOMI, PERRLA. ABSENT: scleral icterus Mouth exam: PRESENT: moist, neck supple Neck exam: ABSENT: meningismus, tenderness, thyromegaly, tracheal deviation Respiratory exam: PRESENT: unlabored. ABSENT: chest wall tenderness, tachypnea, wheezes Cardiovascular exam: ABSENT: tachycardia Vascular exam: PRESENT: normal capillary refill GI/Abdominal exam: PRESENT: soft. ABSENT: distended, rigid, tenderness Rectal exam: PRESENT: deferred Extremities exam: PRESENT: other - Wound to the plantar surface of the right lateral foot. Purulent material emanating from the wound. Erythema and tenderness to palpation are present. Neurological exam: PRESENT: alert, awake, oriented to person, oriented to place, oriented to time, oriented to situation, CN II-XII grossly intact Psychiatric exam: ABSENT: agitated, anxious, depressed Focused psych exam: ABSENT: delusional Skin exam: PRESENT: erythema - Right foot. ABSENT: cyanosis, jaundice Results Laboratory Results: 04/09/20 20:52 04/09/20 20:52 04/09/20 04/09/20 04/09/20 20:52 20:52 20:52 WBC 18.5 H RBC 4.01 L Hgb 10.6 L Hct 33.0 L MCV 82 MCH 26.4 L MCHC 32.1 RDW 15.1 H Plt Count 441 Seg Neutrophils % 84.3 H Sodium 131.9 L Potassium 5.0 Chloride 96 L Carbon Dioxide 23 Anion Gap 13 BUN 27 H Creatinine 2.32 H Est GFR ( Amer) 35 L Glucose 538 H* Lactic Acid 2.5 H Calcium 8.7 Total Bilirubin 1.1 AST 26 Alkaline Phosphatase 116 Total Protein 6.6 Albumin 3.3 L 04/10/20 04/10/20 01:06 04:06 WBC RBC Hgb Hct MCV MCH MCHC RDW Plt Count Seg Neutrophils % Sodium Potassium Chloride Carbon Dioxide Anion Gap BUN Creatinine Est GFR ( Amer) Glucose Lactic Acid 1.3 1.4 Calcium Total Bilirubin AST Alkaline Phosphatase Total Protein Albumin Impressions: Foot X-Ray 04/09/20 20:34 IMPRESSION: Findings are consistent with osteomyelitis involving the lateral aspect of the fifth metatarsal base. Associated underlying pathologic fracture deformity. Superimposed foci of soft tissue gas at this site could indicate infection with a gas-forming organism. copyright 2010 [employer]- All Rights Reserved Assessment & Plan - Diagnosis (1) Diabetic infection of right foot Is this a current diagnosis for this admission?: Yes (2) Osteomyelitis Qualifiers: Osteomyelitis type: unspecified type Osteomyelitis location: foot Laterality: right Qualified Code(s): M86.9 - Osteomyelitis, unspecified Is this a current diagnosis for this admission?: Yes - Plan Summary Plan Summary: There is a 59-year-old male with uncontrolled diabetes. He has a severe diabetic foot infection on the right. There is purulent material emanating from the ulcer, with evidence of osteomyelitis on x-ray. The patient has severe PVD, and I presented him with several options. The patient may attempt to avoid surgery, if he will submit to long-term intravenous antibiotics (this has a very low likelihood of success). More appropriate options will include surgical intervention. The patient may undergo immediate surgical intervention for his infection at this institution, with outpatient referral to vascular surgery to address his severe PVD. The third option involves transfer to [place] to his vascular surgeon, who may address all of these issues concurrently. The patient is unsure which option he wishes to take. He has requested time to discuss the situation with his . Surgery will continue to follow. Maintain n.p.o. for now. Continue antibiotics. Continue tight glucose control.
[2020-04-10] MEDS ORDERED: ROCURONIUM BROMIDE INJ 50 MG/5 ML VIAL IV ONE (08:02)
[2020-04-10] MEDS ORDERED: INSULIN NPH (ISOPHANE), HUMAN 100 UNIT/ML 3 ML ONE (09:39)
[2020-04-10] MEDS ORDERED: FENTANYL CITRATE INJ/PF 100 MCG/2 ML AMPUL ONE (09:39)
[2020-04-10] MEDS ORDERED: MIDAZOLAM 2 MG/2 ML INJ ONE (09:39)
[2020-04-10] MEDS ORDERED: ONDANSETRON HCL INJ/PF 4 MG/2 ML SDV ONE (09:39)
[2020-04-10] MEDS ORDERED: DEXMEDETOMIDINE INJ 80 MCG/20 ML VIAL IV ONE (09:39)
[2020-04-10] MEDS ORDERED: PROPOFOL INJ 200 MG/20 ML VIAL IV ONE (09:40)
[2020-04-10] MEDS ORDERED: INSULIN NPH (ISOPHANE), HUMAN 100 UNIT/ML 3 ML SUBCUT ONE (09:45)
[2020-04-10] MEDS ORDERED: BUPIVACAINE HCL 0.25 % INJ/PF (2.5 MG/1 ML) 30 ML VIAL ONE (09:48)
[2020-04-10] MEDS ORDERED: LIDOCAINE 1% INJ-PF (10 MG/ML) 30 ML SDV ONE (09:48)
[2020-04-10] MEDS ORDERED: AMLODIPINE BESYLATE 10 MG TABLET PO SCH (10:00)
[2020-04-10] MEDS ORDERED: METOPROLOL SUCCINATE 50 MG TAB.SR.24H PO SCH (10:00)
[2020-04-10] MEDS ORDERED: ISOSORBIDE MONONITRATE 30 MG TAB.ER.24H PO SCH (10:00)
[2020-04-10] MEDS ORDERED: TAMSULOSIN HCL 0.4 MG CAP.SR.24H PO SCH (10:00)
[2020-04-10] MEDS ORDERED: VENLAFAXINE HCL 37.5 MG CAP.SR.24H PO SCH (10:00)
[2020-04-10] MEDS ORDERED: LOSARTAN POTASSIUM 25 MG TABLET PO SCH (10:00)
--- NOTE | 2020-04-10 10:06 | PDOC PROGRESS REPORT ---
Subjective Progress Note for:: 04/10/20 Reason For Visit: RIGHT FOOT GAS GANGRENE,DIABETES,CKD Patient had uneventful night kept n.p.o.; dry cough; patient had rapid COVID test performed this morning which was The patient has a history of trolled diabetes, and advanced peripheral vascular disease lower extremities. He is status post left [facility], Dr. Doshi, March 17; patient had an appointment to have revascularization right lower extremity end of next week down in [place]. He now has active pus draining from his right foot, lateral aspect with x-ray showing soft tissue gas swelling, fracture of the base of the right fifth metatarsal bone, and osteomyelitis. Physical Exam Vital Signs: Temp Pulse Resp BP Pulse Ox 99.2 F 109 H 19 143/72 H 98 04/10/20 09:43 04/10/20 09:43 04/10/20 09:43 04/10/20 09:43 04/10/20 09:43 Intake & Output 04/09/20 04/10/20 04/11/20 06:59 06:59 06:59 Intake Total 1050 Output Total 750 Balance 300 Weight 78.2 kg General appearance: PRESENT: no acute distress, other - Dry cough, no mass, Musculoskeletal exam: PRESENT: other - Right leg examined. +1 right femoral pulse. The entire leg is warm not hot. There is an abrasive wound to the lateral aspect right lower leg. Right foot examined. Swollen, with active pus draining from a pressure ulcer right lateral fifth metatarsal base, unable to p alpate pulses right foot. Results Laboratory Results: 04/09/20 20:52 04/09/20 20:52 04/09/20 04/09/20 04/09/20 20:52 20:52 20:52 WBC 18.5 H RBC 4.01 L Hgb 10.6 L Hct 33.0 L MCV 82 MCH 26.4 L MCHC 32.1 RDW 15.1 H Plt Count 441 Seg Neutrophils % 84.3 H Sodium 131.9 L Potassium 5.0 Chloride 96 L Carbon Dioxide 23 Anion Gap 13 BUN 27 H Creatinine 2.32 H Est GFR ( Amer) 35 L Glucose 538 H* Lactic Acid 2.5 H Calcium 8.7 Total Bilirubin 1.1 AST 26 Alkaline Phosphatase 116 Total Protein 6.6 Albumin 3.3 L 04/10/20 04/10/20 01:06 04:06 WBC RBC Hgb Hct MCV MCH MCHC RDW Plt Count Seg Neutrophils % Sodium Potassium Chloride Carbon Dioxide Anion Gap BUN Creatinine Est GFR ( Amer) Glucose Lactic Acid 1.3 1.4 Calcium Total Bilirubin AST Alkaline Phosphatase Total Protein Albumin Impressions: Foot X-Ray 04/09/20 20:34 IMPRESSION: Findings are consistent with osteomyelitis involving the lateral aspect of the fifth metatarsal base. Associated underlying pathologic fracture deformity. Superimposed foci of soft tissue gas at this site could indicate infection with a gas-forming organism. copyright 2010 [employer]- All Rights Reserved Assessment & Plan - Diagnosis (1) Diabetic infection of right foot Is this a current diagnosis for this admission?: Yes Plan: Impression: Brittle diabetic with uncontrolled blood sugar now 330 this morning; septic right foot due to soft tissue infection with osteomyelitis of the right fifth metatarsal base with underlying peripheral vascular disease; monophasic flow in the right posterior tibial anterior tibial arteries. Patient needs source control of right foot infection to risk of septic plan: 1. COVID status checked this morning which is negative; I recommended right foot debridement including skin and soft tissue as well as fifth metatarsal base; I explained to the patient this morning's procedure will likely be 1 in a series of surgical interventions to attempt to preserve his right foot. Vascular intervention may be required, necessitating transfer. 2. Patient agrees to today's operation. Postoperatively we will discuss management scenarios based on today's intraoperative findings. - Time Critical Time spent with patient: 15-24 minutes Medications reviewed and adjusted accordingly: Yes Anticipated discharge: Home
[2020-04-10] MEDS ORDERED: BUPIVACAINE HCL 0.5 % INJ/PF 30 ML SDV ONE (10:24)
[2020-04-10] MEDS ORDERED: LIDOCAINE 2% INJ (20 MG/ML) 20 ML MDV ONE (10:24)
[2020-04-10] MEDS ORDERED: OXYCODONE-ACETAMINOPHEN 5-325 MG TABLET PO PRN ×2 (10:40)
[2020-04-10] MEDS ORDERED: MORPHINE SULFATE 10 MG/ML INJ IV PRN (10:40)
[2020-04-10] MEDS ORDERED: PROMETHAZINE HCL INJ 25 MG/1 ML VIAL IV PRN ×2 (10:40)
[2020-04-10] MEDS ORDERED: MEPERIDINE HCL/PF INJ 25 MG/1 ML DISP.SYRIN IV PRN (10:40)
[2020-04-10] MEDS ORDERED: DIPHENHYDRAMINE HCL 50 MG/ML VIAL IV PRN (10:40)
[2020-04-10] MEDS ORDERED: FENTANYL CITRATE INJ/PF 100 MCG/2 ML AMPUL IV PRN ×3 (10:40)
--- NOTE | 2020-04-10 11:18 | Operative Report ---
Operative Report DATE OF SURGERY: 04/10/20 PREOPERATIVE DIAGNOSIS: 1. Septic right foot with gas using organisms involving lateral aspect right midfoot soft tissue, fascia and bone. 2. Uncontrolled diabetic. 3. Peripheral vascular disease POSTOPERATIVE DIAGNOSIS: Same with significant pus in the lateral and plantar aspect of the right mid and proximal foot, with osteomyelitis of the base of the right fifth metatarsal and cuboid bones OPERATION: 1. Excisional debridement of skin, subcutaneous tissue, fascia, tendons of the right foot aspect. 2. Excisional debridement of portions of the right fifth metatarsal base and cuboid bones. 3. Placement of counterincisions on the plantar and infra medial malleoli or regions with [place] loop drains SURGEON: DUSTIN ENCARNACION ANESTHESIA: LMAC TISSUE REMOVED OR ALTERED: Skin, subcutaneous tissue, fascia, bone, tendon fragments COMPLICATIONS: None ESTIMATED BLOOD LOSS: 30 cc INTRAOPERATIVE FINDINGS: See below PROCEDURE: The patient was seen in the preop holding area where the right foot was marked. He was then taken to the main operating room where LMAC anesthesia was induced. The patient then underwent a circumferential ankle block by the anesthesiologist. The right foot was prepped and draped with Betadine. Surgical plan and surgical timeout were conducted. The right foot was significant for an open pus draining wound on the lateral aspect of the foot overlying the base of the fifth metatarsal bone. Approximately 3-1/2 cm diameter excisional debridement of skin and subcutaneous tissue was performed removing a plug of tissue full-thickness down to the active pus. Now using rongeur, the fascia, and tendon fragments in this region were debrided. Using multiple rongeurs, the proximal base of the fifth metatarsal was debrided, as well as worsens of the cuboid bone. The pus tract proximally along the plantar aspect of the foot as well as medially. 2 counterincisions were made on the more proximal foot 1 over the plantar surface just distal to the heel and 1 below the right medial malleolus. Rylie clamps were used to open up these tracts, and all wounds were communicating to some degree. Wounds irrigated with Brooke liters of saline. I felt that all active pus pockets were broken up sufficiently. Additional bone fragments were debrided of sharp edges. Additional skin was excisionally debrided with #10 blade. Wound cultures were obtained from bone and soft tissue and sent for Gram stain, culture and sensitivity. I we felt that the damage control procedure to get the septic source under control was clean. 3 pieces of iodoform half-inch packing were packed into the 3 openings in the right foot. 2 large [place] drains were placed in a loop-like fashion between the 3 incisions and tied in knots. 4 x 4's Curlex applied. Patient tolerated procedure well taken recovery in stable condition. Plan: 1. Leg elevation, continue intravenous antibiotics, follow-up on wound cultures, sensitivities 2. Discussed findings with patient's sniffing another. I told her this was first in a series of interventions to save his right foot, which will be a long journey given his multiple comorbidities, and pre-existing left AKA. 3. I discussed the above with hospitalist mechanic general operational test.
[2020-04-10] MEDS: DOCUSATE SODIUM 100 MG CAPSULE PO SCH ×2 (12:16→17:17)
[2020-04-10] MEDS: GABAPENTIN 100 MG CAPSULE PO SCH ×3 (12:24→17:22)
[2020-04-10] MEDS: FAMOTIDINE 20 MG TABLET PO SCH ×2 (12:24→22:09)
[2020-04-10] MEDS: ACETAMINOPHEN 325 MG TABLET PO PRN (12:35)
[2020-04-10] MEDS ORDERED: NORMAL SALINE 1000 ML 1,000 ML IV ONE (13:00)
[2020-04-10] MEDS: HEPARIN SOD (PORCINE) 5,000 UNIT/ML 1 ML VIAL SUBCUT SCH ×2 (13:10→22:09)
[2020-04-10] MEDS ORDERED: PIPERACILLIN/TAZOBACTAM 3.375 GM VIAL IV SCH (15:00)
[2020-04-10 17:03] LABS: GLUCOSE 538 mg/dL (75-110)
--- NOTE | 2020-04-10 17:10 | EKG REPORT ---
SEVERITY:- BORDERLINE ECG - SINUS TACHYCARDIA LEFT AXIS DEVIATION BORDERLINE PROLONGED QT INTERVAL : Confirmed by: Anisha Alfaro MD 10-Apr-2020 17:09:17
[2020-04-10] MEDS: PIPERACILLIN SODIUM/TAZOBACTAM 3.375 GM in NORMAL SALINE 100 ML IV SCH (17:23)
[2020-04-10] MEDS: NORMAL SALINE 1000 ML 1,000 ML IV PRN ×2 (17:24→22:08)
[2020-04-10] MEDS: VANCOMYCIN HCL 1,250 MG in DEXTROSE 5%-WATER 250 ML IV SCH (22:08)
[2020-04-10] MEDS: INSULIN GLARGINE,HUM.REC.ANLOG 1,000 UNIT/10 ML VIAL SUBCUT SCH (22:09)
[2020-04-11] MEDS ORDERED: NALOXONE HCL INJ/PF 0.4 MG/1 ML SDV ONE (00:43)
[2020-04-11] MEDS ORDERED: SODIUM BICARBONATE 8.4% INJ 50 MEQ/50 ML DISP.SYRIN ONE ×2 (01:00→11:48)
[2020-04-11] MEDS ORDERED: DEXTROSE 5%-WATER 250 ML with VASOPRESSIN 100 UNIT IV PRN ×2 (01:30)
[2020-04-11] MEDS: DEXTROSE 5%-WATER 250 ML with NOREPINEPHRINE BITARTRATE 4 MG IV PRN ×4 (01:30→04:45)
[2020-04-11 01:34] LABS: HEMATOCRIT 27.8 % (37.9-51.0); HEMOGLOBIN 8.9 g/dL (13.5-17.0); MEAN CORPUSCULAR HEMOGLOBIN 26.7 pg (27.0-33.4); MEAN CORPUSCULAR HGB CONC 32.2 g/dL (32.0-36.0); MEAN CORPUSCULAR VOLUME 83 fl (80-97); PLATELET COUNT 432 10^3/uL (150-450); RED BLOOD COUNT 3.35 10^6/uL (4.35-5.55); RED CELL DISTRIBUTION WIDTH 15.7 % (11.5-14.0); WHITE BLOOD COUNT 24.1 10^3/uL (4.0-10.5)
[2020-04-11] MEDS ORDERED: VASOPRESSIN INJ 20 UNIT/1 ML VIAL ONE (01:38)
[2020-04-11 01:58] LABS: ABSOLUTE LYMPHOCYTES# (MANUAL) 4.8 10^3/uL (0.5-4.7); ABSOLUTE MONOCYTES # (MANUAL) 3.9 10^3/uL (0.1-1.4); BAND NEUTROPHILS % (MANUAL) 2 % (3-5); BASOPHILS % (MANUAL) 0 % (0-2); EOSINOPHILS % (MANUAL) 1 % (0-6); LYMPHOCYTES % (MANUAL) 20 % (13-45); MONOCYTES % (MANUAL) 16 % (3-13); SEGMENTED NEUTROPHILS % (MAN) 61 % (42-78); TOTAL CELLS COUNTED 100
[2020-04-11 01:59] LABS: ANISOCYTOSIS SLIGHT
[2020-04-11] MEDS ORDERED: DEXTROSE 5%-WATER 250 ML with PHENYLEPHRINE HCL 40 MG IV PRN ×2 (02:00)
[2020-04-11 02:01] LABS: BURR CELLS SLIGHT; SCHISTOCYTES 1+
[2020-04-11 02:03] LABS: PLATELET COMMENT ADEQUATE
[2020-04-11 02:12] LABS: ALBUMIN 2.9 g/dL (3.5-5.0); ALKALINE PHOSPHATASE 112 U/L (38-126); ANION GAP 11 (5-19); ASPARTATE AMINO TRANSFERASE 72 U/L (17-59); BILIRUBIN,DIRECT 0.2 mg/dL (0.0-0.4); BILIRUBIN,TOTAL 0.9 mg/dL (0.2-1.3); BLOOD UREA NITROGEN 27 mg/dL (7-20); CALCIUM 7.9 mg/dL (8.4-10.2); CARBON DIOXIDE 20 mmol/L (22-30); CHLORIDE 108 mmol/L (98-107); CREATINE KINASE MB 2.41 ng/mL (<4.55); GLUCOSE 266 mg/dL (75-110); TOTAL PROTEIN 6.5 g/dL (6.3-8.2)
[2020-04-11 02:13] LABS: ARTERIAL BLOOD BASE EXCESS -11.2 mmol/L; ARTERIAL BLOOD H2CO3 1.98 mmol/L (1.05-1.35); ARTERIAL BLOOD HCO3 19.6 mmol/L (20-24); ARTERIAL BLOOD O2 SATURATION 98.8 % (94-98); ARTERIAL BLOOD PCO2 65.7 mmHg (35-45); ARTERIAL BLOOD PO2 193.8 mmHg (80-100); ARTERIAL BLOOD TOTAL CO2 21.6 mmol/L (23-27)
[2020-04-11 02:17] LABS: TROPONIN I 0.077 ng/mL
[2020-04-11 02:17] LABS: ARTERIAL BLOOD FIO2 100%; ARTERIAL BLOOD PH 7.09 (7.35-7.45)
[2020-04-11] MEDS ORDERED: PHENYLEPHRINE HCL INJ/PF 10 MG/1 ML SDV ONE (02:27)
[2020-04-11] MEDS ORDERED: SODIUM BICARBONATE 8.4% INJ 50 MEQ/50 ML DISP.SYRIN IV ONE (02:27)
[2020-04-11] MEDS ORDERED: NORMAL SALINE 1000 ML 1,000 ML IV ONE (02:31)
[2020-04-11 02:42] LABS: PROTHROMBIN TIME 17.3 SEC (11.4-15.4)
[2020-04-11 02:43] LABS: PARTIAL THROMBOPLASTIN TIME 43.5 SEC (23.5-35.8)
--- NOTE | 2020-04-11 03:35 | RADIOLOGY REPORT (SQ) ---
EXAM DESCRIPTION: XR CHEST 1 VIEW COMPLETED DATE/TME: 04/11/2020 00:00 CLINICAL HISTORY: 59 years Male, ETT placement s/p cardiac arrest COMPARISON: 03/01/19 NUMBER OF VIEWS/TECHNIQUE: 1/AP FINDINGS: Moderate patchy and streaky opacity in the right midlung field. Central edema pattern.Adequate appearing endotracheal tube. Adequate appearing enteric tube partially obscured. Limitation: Leads/hardware/artifact. Normal cardiac silhouette size. No pneumothorax. Stable bony thorax. IMPRESSION: Mild-moderate mixed interstitial and airspace opacities. Differential diagnosis includes pulmonary edema, multifocal pneumonia, and chronic interstitial lung disease.
[2020-04-11] MEDS: PIPERACILLIN SODIUM/TAZOBACTAM 3.375 GM in NORMAL SALINE 100 ML IV SCH ×3 (03:42→17:55)
[2020-04-11] MEDS ORDERED: NOREPINEPHRINE BITARTRATE INJ/PF 4 MG/4 ML SDV IV ONE (04:41)
[2020-04-11 04:43] LABS: HEMATOCRIT 26.4 % (37.9-51.0); HEMOGLOBIN 8.7 g/dL (13.5-17.0); MEAN CORPUSCULAR HEMOGLOBIN 26.9 pg (27.0-33.4); MEAN CORPUSCULAR VOLUME 82 fl (80-97); PLATELET COUNT 362 10^3/uL (150-450); RED BLOOD COUNT 3.24 10^6/uL (4.35-5.55); RED CELL DISTRIBUTION WIDTH 15.2 % (11.5-14.0); WHITE BLOOD COUNT 18.3 10^3/uL (4.0-10.5)
[2020-04-11 04:59] LABS: ABSOLUTE LYMPHOCYTES# (MANUAL) 1.3 10^3/uL (0.5-4.7); ABSOLUTE MONOCYTES # (MANUAL) 2.4 10^3/uL (0.1-1.4); BASOPHILS % (MANUAL) 0 % (0-2); EOSINOPHILS % (MANUAL) 0 % (0-6); LYMPHOCYTES % (MANUAL) 7 % (13-45); MONOCYTES % (MANUAL) 13 % (3-13); SEGMENTED NEUTROPHILS % (MAN) 80 % (42-78); TOTAL CELLS COUNTED 100
--- NOTE | 2020-04-11 04:59 | RADIOLOGY REPORT (SQ) ---
CLINICAL INDICATION: RIJ TLC placement. TECHNIQUE: A single portable AP view was obtained of the chest at 0418 hours. COMPARISON: 0259 hours. FINDINGS: The cardiomediastinal silhouette is enlarged but stable. The lungs demonstrate interstitial prominence. Streaky airspace disease dependently right upper lobe. The appearance of the lungs is similar to prior. No evidence of effusion or pneumothorax. The visualized bones are unremarkable. Endotracheal tube tip in good position. Nasogastric tube tip is not seen but clearly below the diaphragm. Right IJ central venous catheter tip projects over low SVC, satisfactory. IMPRESSION: Satisfactory placement of supportive appliances..
[2020-04-11 05:00] LABS: ANISOCYTOSIS SLIGHT; PLATELET COMMENT ADEQUATE
[2020-04-11 05:01] LABS: ANION GAP 13 (5-19); BLOOD UREA NITROGEN 28 mg/dL (7-20); CALCIUM 7.1 mg/dL (8.4-10.2); CARBON DIOXIDE 19 mmol/L (22-30); CHLORIDE 106 mmol/L (98-107); GLUCOSE 361 mg/dL (75-110); POTASSIUM 4.7 mmol/L (3.6-5.0)
[2020-04-11] MEDS: HEPARIN SOD (PORCINE) 5,000 UNIT/ML 1 ML VIAL SUBCUT SCH ×3 (05:04→22:27)
--- NOTE | 2020-04-11 05:06 | PDOC CRITICAL CARE PROG REPORT ---
General Date:: 04/11/20 ICU Day:: 1 Ventilator Day:: 1 Resuscitation Status: Full Code - Medications: Medications reviewed and adjusted accordingly: Yes Physical Exam Vital Signs: Temp Pulse Resp BP Pulse Ox 99.2 F 97 22 H 136/69 H 93 04/10/20 23:26 04/10/20 23:26 04/10/20 23:26 04/10/20 23:26 04/10/20 23:26 Intake & Output 04/09/20 04/10/20 04/11/20 06:59 06:59 06:59 Intake Total 1050 4740 Output Total 750 970 Balance 300 3770 Weight 78.2 kg Weight/Height Weight 78.2 kg Height 6 ft General appearance: PRESENT: severe distress Head exam: PRESENT: atraumatic Eye exam: PRESENT: other - Pupild fixed Mouth exam: PRESENT: moist Respiratory exam: PRESENT: rhonchi Cardiovascular exam: PRESENT: +S1, +S2 Pulses: PRESENT: normal carotid pulses GI/Abdominal exam: PRESENT: distended, hypoactive bowel sounds, soft Gentrourinary exam: PRESENT: indwelling catheter Neurological exam: PRESENT: other - Unresponsive Laboratory/Radiographs Laboratory Results: 04/11/20 01:02 04/11/20 01:02 04/09/20 04/10/20 04/11/20 20:52 04:06 01:02 WBC 24.1 H RBC 3.35 L Hgb 8.9 L Hct 27.8 L MCV 83 MCH 26.7 L MCHC 32.2 RDW 15.7 H Plt Count 432 Seg Neutrophils % Not Reportable Carbonic Acid HCO3/H2CO3 Ratio ABG pH ABG pCO2 ABG pO2 ABG HCO3 ABG O2 Saturation ABG Base Excess FiO2 Sodium Potassium Chloride Carbon Dioxide Anion Gap BUN Creatinine Est GFR ( Amer) Glucose 538 H* Lactic Acid 1.4 Calcium Magnesium Total Bilirubin AST Alkaline Phosphatase Total Protein Albumin 04/11/20 04/11/20 04/11/20 01:02 01:02 02:07 WBC RBC Hgb Hct MCV MCH MCHC RDW Plt Count Seg Neutrophils % Carbonic Acid 1.98 H HCO3/H2CO3 Ratio 9:1 ABG pH 7.09 L* ABG pCO2 65.7 H ABG pO2 193.8 H ABG HCO3 19.6 L ABG O2 Saturation 98.8 H ABG Base Excess -11.2 FiO2 100% Sodium 138.8 Potassium 4.0 Chloride 108 H Carbon Dioxide 20 L Anion Gap 11 BUN 27 H Creatinine 2.31 H Est GFR ( Amer) 35 L Glucose 266 H Lactic Acid 4.2 H Calcium 7.9 L Magnesium 2.5 H Total Bilirubin 0.9 AST 72 H Alkaline Phosphatase 112 Total Protein 6.5 Albumin 2.9 L 04/11/20 04/11/20 01:02 01:02 Creatine Kinase 743 H CK-MB (CK-2) 2.41 Troponin I 0.077 Impressions: Foot X-Ray 04/09/20 20:34 IMPRESSION: Findings are consistent with osteomyelitis involving the lateral aspect of the fifth metatarsal base. Associated underlying pathologic fracture deformity. Superimposed foci of soft tissue gas at this site could indicate infection with a gas-forming organism. copyright 2010 [employer]- All Rights Reserved All labs, radiographs, diagnostic studies and EKGs were personally reviewed: Yes In addition, reports of radiographic and diagnostic studies were read: Yes Assessment and Plan - Diagnosis (1) Chronic kidney disease Qualifiers: Chronic kidney disease stage: stage 4 (severe) Qualified Code(s): N18.4 - Chronic kidney disease, stage 4 (severe) Is this a current diagnosis for this admission?: Yes (2) Diabetes Qualifiers: Diabetes mellitus type: type 1 Diabetes mellitus complication status: with circulatory complication Diabetes mellitus complication detail: with peripheral angiopathy with gangrene Qualified Code(s): E10.52 - Type 1 diabetes mellitus with diabetic peripheral angiopathy with gangrene Is this a current diagnosis for this admission?: Yes (3) Gas gangrene Is this a current diagnosis for this admission?: Yes (4) Osteomyelitis Qualifiers: Osteomyelitis type: unspecified type Osteomyelitis location: foot Laterality: right Qualified Code(s): M86.9 - Osteomyelitis, unspecified Is this a current diagnosis for this admission?: Yes Plan Summary: This is a 59-year-old male with a past medical history of stage IV chronic kidney disease diabetes on insulin at home peripheral vascular disease status post left AKA and hypertension he originally presented on 04/10/2020 with complaints of 2 months of worsening right foot ulcer despite management at the wound care clinic prompting an evaluation at the emergency department for increased erythema and pain. In the emergency department he was found to have gas gangrene on imaging with leukocytosis surgery was consulted. He underwent excisional debridement of that right foot. He was transferred to [facility] postop. At 0040 a CODE BLUE was called for PEA arrest upon arrival to the room compressions had been started patient was being bagged, I emergently intubated him with a 7.5 endotracheal tube 22 at the teeth, good color change on the CO2 detector and bilateral breath sounds. We achieved ROSC at 0046 he was given 6 rounds of epinephrine 1-1/2 Amps of atropine and 3 Amps of bicarb. He again went into PEA arrest at 0101 again CPR was initiated and we achieved ROSC at 0105. He was transferred to the ICU for further management. He was hypotensive with a blood pressure 80 over 50s nor epi was started at 30 mics he remained hypotensive with a map in the 50s vasopressin 0.04 was added, he was also given 1 amp of bicarb, he remained hypotensive and phenylephrine was added. A right radial arterial line was placed as well as a right IJ triple-lumen catheter. He was bolused with normal saline. His blood pressure did improve and we were able to wean him off the vasopressin and the phenylephrine he is currently on Levophed at 5 mcg. Critical Time Critical Time (minutes): 75 Level of Care: ICU -: 1. The care of a critical patient is a dynamic process. This note is a independent sales representative synopsis but static in nature. The timeframe for treatments given in order is not necessarily the actual time these treatments may have been done. 2. This patient requires critical care secondary to ongoing requirements for therapy not offered or safe outside the critical care environment. Transfer to a lower level of care will result in altered life or limb morbidity and mortality. 3. Multidisciplinary rounds completed. 4. ABCDE bundle addressed.
--- NOTE | 2020-04-11 07:02 | Operative Report ---
Bedside Procedure - History of Present Illness Indication for Procedure: IV Axxess Date: 04/11/20 Provider: SURAJ HAMPTON - Central Line Right Internal jugular Time completed: 04:00 Consent obtained: Yes Central line pre-insertion: Sterile PPE donned, Chloraprep applied, Sterile drapes applied Central line lumen type: Triple Ultrasound guided: Yes Line secured with sutures: Yes Central line post-insertion: Blood return from lumens, Biopatch applied, Sutured, Sterile dressing applied, Position confirmed w/ CXR Complications: No
--- NOTE | 2020-04-11 07:41 | Operative Report ---
Bedside Procedure - History of Present Illness Indication for Procedure: henodynamic monitoring Date: 04/11/20 Provider: SURAJ HAMPTON - Additional Procedures Arterial Line Time performed: 01:30 Notes: INDICATION: Hemodynamic monitoring PROCEDURE FIRE REGULATOR: SAMINA Bonilla CONSENT: Consent was obtained from the prior to the procedure. Indications, risks, and benefits were explained at length. PROCEDURE SUMMARY: A time out was performed. surgical cap, mask sterile gown and sterile gloves donned. After an Ariel test was performed to ensure adequate perfusion, the right wrist was prepped using chlorhexidine scrub and draped in sterile towels. The radial pulse was identified and the wrist was positioned in the usual fashion. Anesthesia was achieved using 1% lidocaine. The needle was inserted into the radial artery. Arterial blood pulsated. The guidewire was advanced easily into the radial artery. The catheter was then advanced over the wire and the needle and wire were withdrawn. The catheter was sutured in place. A sterile opsite was placed over the catheter at the insertion site. The patient tolerated the procedure. At the time of procedure completion, the catheter was connected to the manager monitoring and calibrated. Appropriate waveform and blood pressure tracing was observed. Estimated blood loss is <5 cc
--- NOTE | 2020-04-11 08:02 | EKG REPORT ---
SEVERITY:- ABNORMAL ECG - SINUS TACHYCARDIA LEFT AXIS DEVIATION NONSPECIFIC REPOL ABNORMALITY, DIFFUSE LEADS : Confirmed by: Anisha Alfaro MD 11-Apr-2020 08:01:50
[2020-04-11] MEDS: IPRATROPIUM/ALBUTEROL 0.5-2.5 MG/3 ML AMPUL NEB PRN (08:14)
[2020-04-11] MEDS: INSULIN LISPRO 100 UNIT/ML 3 ML VIAL SUBCUT SCH ×2 (09:15→15:40)
[2020-04-11 09:18] LABS: ARTERIAL BLOOD BASE EXCESS -8.7 mmol/L; ARTERIAL BLOOD FIO2 50%; ARTERIAL BLOOD HCO3 15.3 mmol/L (20-24); ARTERIAL BLOOD O2 SATURATION 98.8 % (94-98); ARTERIAL BLOOD PCO2 26.5 mmHg (35-45); ARTERIAL BLOOD PH 7.38 (7.35-7.45); ARTERIAL BLOOD PO2 140.3 mmHg (80-100); ARTERIAL BLOOD TOTAL CO2 16.1 mmol/L (23-27)
[2020-04-11] MEDS: INSULIN GLARGINE,HUM.REC.ANLOG 1,000 UNIT/10 ML VIAL SUBCUT SCH (09:52)
[2020-04-11] MEDS ORDERED: VANCOMYCIN HCL INJ 500 MG VIAL IV SCH (10:00)
[2020-04-11] MEDS ORDERED: FERROUS SULFATE 325 MG TABLET PO SCH (10:00)
[2020-04-11] MEDS ORDERED: INSULIN LISPRO 100 UNIT/ML 3 ML VIAL SUBCUT ONE (10:30)
[2020-04-11] MEDS ORDERED: INSULIN REG, HUMAN 100 UNIT/ML 3 ML VIAL (PYX) IV ONE ×2 (10:30)
[2020-04-11] MEDS ORDERED: DEXTROSE 5%-WATER 1000 ML 1,000 ML with SODIUM BICARBONATE 150 MEQ IV PRN ×6 (11:46→15:44)
[2020-04-11] MEDS ORDERED: SUCCINYLCHOLINE CHLORIDE INJ 200 MG/10 ML VIAL IV ONE (11:46)
[2020-04-11] MEDS ORDERED: INSULIN REG, HUMAN 100 UNIT/ML 3 ML VIAL (PYX) ONE (11:46)
[2020-04-11] MEDS ORDERED: DEXTROSE 40% GEL 15 GM TUBE PO PRN ×4 (11:47→22:56)
[2020-04-11] MEDS ORDERED: GLUCAGON,HUMAN RECOMB 1 MG INJ IM PRN ×2 (11:47→22:56)
[2020-04-11] MEDS ORDERED: DEXTROSE 50%-WATER 25 GM/50 ML DISP.SYRIN IV PRN ×4 (11:47→22:56)
--- NOTE | 2020-04-11 11:53 | RADIOLOGY REPORT (SQ) ---
EXAM DESCRIPTION: CT HEAD WITHOUT IMAGES COMPLETED DATE/TIME: 04/11/2020 11:42 am REASON FOR STUDY: s/p arrest, leukocytosis COMPARISON: None. TECHNIQUE: Axial images acquired through the brain without intravenous contrast. Images reviewed wi th bone, brain and subdural windows. Additional sagittal and coronal reconstructions were generated. Images stored on PACS. All CT scanners at this facility use dose modulation, iterative reconstruction, and/or weight based d osing when appropriate to reduce radiation dose to as low as reasonably achievable (ALARA). [facility]: Dose Right [facility]: CareDose [facility]: Dose Right [facility]: Teradose 4D [facility]: [employer] RADIATION DOSE: CT Rad equipment meets quality standard of care and radiation dose reduction techniq ues were employed. CTDIvol: 48.5 mGy. DLP: 928 mGy-cm. mGy. LIMITATIONS: None. FINDINGS: VENTRICLES: Age-appropriate. CEREBRUM: No masses. No hemorrhage. No midline shift. No evidence for acute infarction. Normal gra y/white matter differentiation. No areas of low density in the white matter. CEREBELLUM: No masses. No hemorrhage. No alteration of density. No evidence for acute infarction. EXTRAAXIAL SPACES: No fluid collections. No masses. ORBITS AND GLOBE: No intra- or extraconal masses. Normal contour of globe without masses. CALVARIUM: No fracture. PARANASAL SINUSES: No fluid or mucosal thickening. SOFT TISSUES: No mass or hematoma. OTHER: Endotracheal and nasogastric tubes down. IMPRESSION: NORMAL BRAIN CT WITHOUT CONTRAST. EVIDENCE OF ACUTE STROKE: NO. COMMENT: Quality ID # [id number]: Final reports with documentation of one or more dose reduction techniques (e.g., Automated exposure control, adjustment of the mA and/or kV according to patient size, use of iterative reconstruction technique) TECHNICAL DOCUMENTATION: JOB ID: [id number] 2010 [employer]- All Rights Reserved Reading location - IP/workstation name: [email or web address]
--- NOTE | 2020-04-11 12:15 | RADIOLOGY REPORT (SQ) ---
EXAM DESCRIPTION: CT ABD/PELVIS NO ORAL OR IV IMAGES COMPLETED DATE/TIME: 04/11/2020 11:42 am REASON FOR STUDY: s/p arrest, leukocytosis COMPARISON: None. TECHNIQUE: CT scan of the abdomen and pelvis performed without intravenous or oral contrast. Images reviewed with lung, soft tissue, and bone windows. Reconstructed coronal and sagittal MPR images revi ewed. All images stored on PACS. All CT scanners at this facility use dose modulation, iterative reconstruction, and/or weight based d osing when appropriate to reduce radiation dose to as low as reasonably achievable (ALARA). [facility]: Dose Right [facility]: CareDose [facility]: Dose Right [facility]: Teradose 4D [facility]: [employer] RADIATION DOSE: mGy. LIMITATIONS: Motion artifact. FINDINGS: LOWER CHEST: See separate report of the CT of the chest. NON-CONTRASTED LIVER, SPLEEN, ADRENALS: Evaluation limited by lack of IV contrast. No identified sign ificant masses. PANCREAS: No masses. No peripancreatic inflammatory changes. GALLBLADDER: Not visualized. RIGHT KIDNEY AND URETER: No suspicious masses. Assessment limited by lack of IV contrast. No signif icant calcifications. No hydronephrosis or hydroureter. LEFT KIDNEY AND URETER: No suspicious masses. Assessment limited by lack of IV contrast. No signifi cant calcifications. No hydronephrosis or hydroureter. AORTA AND RETROPERITONEUM: No aneurysm. No retroperitoneal masses or adenopathy. BOWEL AND PERITONEAL CAVITY: Nasogastric tube, tip in the stomach. No obvious masses or inflammatory changes. No free fluid. APPENDIX: Normal. PELVIS, BLADDER, AND ABDOMINAL WALL:No abnormal masses. No free fluid. Catheter in the bladder. BONES: No significant findings. OTHER: No other significant finding. IMPRESSION: NO SIGNIFICANT OR ACUTE PROCESS IN THE ABDOMEN OR PELVIS. COMMENT: Quality ID # [id number]: Final reports with documentation of one or more dose reduction techniques (e.g., Automated exposure control, adjustment of the mA and/or kV according to patient size, use of iterative reconstruction technique) TECHNICAL DOCUMENTATION: JOB ID: [id number] 2010 [employer]- All Rights Reserved Reading location - IP/workstation name: [email or web address]
--- NOTE | 2020-04-11 12:21 | RADIOLOGY REPORT (SQ) ---
EXAM DESCRIPTION: CT CHEST WITHOUT IMAGES COMPLETED DATE/TIME: 04/11/2020 11:42 am REASON FOR STUDY: s/p arrest, leukocytosis COMPARISON: None. TECHNIQUE: CT scan performed of the chest without intravenous contrast. Images reviewed with lung, soft tissue and bone windows. Reconstructed coronal and sagittal MPR images reviewed. All images st ored on PACS. All CT scanners at this facility use dose modulation, iterative reconstruction, and/or weight based d osing when appropriate to reduce radiation dose to as low as reasonably achievable (ALARA). [facility]: Dose Right [facility]: CareDose [facility]: Dose Right [facility]: Teradose 4D [facility]: [email or web address] RADIATION DOSE: CT Rad equipment meets quality standard of care and radiation dose reduction techniq ues were employed. CTDIvol: 14.7 - 18.4 mGy. DLP: 1668 mGy-cm. mGy. LIMITATIONS: Motion artifact. FINDINGS: LUNGS AND PLEURA: Bilateral pleural effusions. Faint scattered densities, possibly atelec tasis. No lobar infiltrate. No pneumothorax. HILAR AND MEDIASTINAL STRUCTURES: No identified masses or abnormal nodes. No obvious aneurysm. HEART AND VASCULAR STRUCTURES: Mild cardiomegaly. No aneurysm. No pericardial effusion. UPPER ABDOMEN: See separate report of the CT of the abdomen. THYROID AND OTHER SOFT TISSUES: No masses. No adenopathy. BONES: No significant finding. HARDWARE: Endotracheal tube, nasogastric tube, and central line. OTHER: No other significant findings. IMPRESSION: MILD CARDIOMEGALY. BILATERAL PLEURAL EFFUSIONS WITH FAINT ATELECTASIS. NO LOBAR INFILT RATES. TECHNICAL DOCUMENTATION: JOB ID: [id number] Quality ID # [id number]: Final reports with documentation of one or more dose reduction techniques (e.g., Au tomated exposure control, adjustment of the mA and/or kV according to patient size, use of iterative reconstruction technique) 2010 [employer]- All Rights Reserved Reading location - IP/workstation name: [email or web address]
[2020-04-11] MEDS ORDERED: NORMAL SALINE 100 ML with INSULIN REGULAR, HUMAN 100 UNIT IV PRN ×2 (12:30)
--- NOTE | 2020-04-11 12:56 | PDOC PROGRESS REPORT ---
Subjective Progress Note for:: 04/11/20 Reason For Visit: RIGHT FOOT GAS GANGRENE,DIABETES,CKD Patient had a cardiorespiratory arrest this morning, and sustained period of cerebral anoxia. CT scan of the head, unenhanced, showed no acute changes. Patient remains in the ICU, intubated. Physical Exam Vital Signs: Temp Pulse Resp BP Pulse Ox 100.0 F 114 H 40 H 170/77 H 100 04/11/20 12:00 04/11/20 12:00 04/11/20 12:00 04/11/20 12:00 04/11/20 12:00 Intake & Output 04/10/20 04/11/20 04/12/20 06:59 06:59 06:59 Intake Total 1050 5050 454 Output Total 750 1045 95 Balance 300 4005 359 Weight 78.2 kg 83 kg General appearance: PRESENT: other - Eyes open, does not follow commands, withdraws to pain Musculoskeletal exam: PRESENT: other - Right foot dressing removed. All packing removed. Babar drains manipulated. No foul smell, or residual pus expressed from any of the wounds. All 3 wounds irrigated drains manipulated, gauze packing inserted into the lateral wound, and 4 x 4's and Kerlix reapplied. Results Laboratory Results: 04/11/20 04:30 04/11/20 04:30 04/09/20 04/11/20 04/11/20 20:52 01:02 01:02 WBC 24.1 H RBC 3.35 L Hgb 8.9 L Hct 27.8 L MCV 83 MCH 26.7 L MCHC 32.2 RDW 15.7 H Plt Count 432 Seg Neutrophils % Not Reportable Carbonic Acid HCO3/H2CO3 Ratio ABG pH ABG pCO2 ABG pO2 ABG HCO3 ABG O2 Saturation ABG Base Excess FiO2 Sodium 138.8 Potassium 4.0 Chloride 108 H Carbon Dioxide 20 L Anion Gap 11 BUN 27 H Creatinine 2.31 H Est GFR ( Amer) 35 L Glucose 538 H* 266 H Lactic Acid Calcium 7.9 L Magnesium 2.5 H Total Bilirubin 0.9 AST 72 H Alkaline Phosphatase 112 Total Protein 6.5 Albumin 2.9 L 04/11/20 04/11/20 04/11/20 01:02 02:07 04:30 WBC 18.3 H RBC 3.24 L Hgb 8.7 L Hct 26.4 L MCV 82 MCH 26.9 L MCHC 33.0 RDW 15.2 H Plt Count 362 Seg Neutrophils % Not Reportable Carbonic Acid 1.98 H HCO3/H2CO3 Ratio 9:1 ABG pH 7.09 L* ABG pCO2 65.7 H ABG pO2 193.8 H ABG HCO3 19.6 L ABG O2 Saturation 98.8 H ABG Base Excess -11.2 FiO2 100% Sodium Potassium Chloride Carbon Dioxide Anion Gap BUN Creatinine Est GFR ( Amer) Glucose Lactic Acid 4.2 H Calcium Magnesium Total Bilirubin AST Alkaline Phosphatase Total Protein Albumin 04/11/20 04/11/20 04:30 08:53 WBC RBC Hgb Hct MCV MCH MCHC RDW Plt Count Seg Neutrophils % Carbonic Acid 0.80 L HCO3/H2CO3 Ratio 19:1 ABG pH 7.38 ABG pCO2 26.5 L ABG pO2 140.3 H ABG HCO3 15.3 L ABG O2 Saturation 98.8 H ABG Base Excess -8.7 FiO2 50% Sodium 138.0 Potassium 4.7 Chloride 106 Carbon Dioxide 19 L Anion Gap 13 BUN 28 H Creatinine 2.37 H Est GFR ( Amer) 34 L Glucose 361 H Lactic Acid Calcium 7.1 L Magnesium Total Bilirubin AST Alkaline Phosphatase Total Protein Albumin 04/10/20 10:38 Foot - Right Gram Stain - Final 04/09/20 23:50 Foot - Diabetic Ulcer Gram Stain - Final 04/11/20 04/11/20 01:02 01:02 Creatine Kinase 743 H CK-MB (CK-2) 2.41 Troponin I 0.077 Impressions: Foot X-Ray 04/09/20 20:34 IMPRESSION: Findings are consistent with osteomyelitis involving the lateral aspect of the fifth metatarsal base. Associated underlying pathologic fracture deformity. Superimposed foci of soft tissue gas at this site could indicate infection with a gas-forming organism. copyright 2011 [employer]- All Rights Reserved Abdomen/Pelvis CT 04/11/20 00:00 IMPRESSION: NO SIGNIFICANT OR ACUTE PROCESS IN THE ABDOMEN OR PELVIS. Chest CT 04/11/20 00:00 IMPRESSION: MILD CARDIOMEGALY. BILATERAL PLEURAL EFFUSIONS WITH FAINT ATELECTASIS. NO LOBAR INFILTRATES. Chest X-Ray 04/11/20 00:00 IMPRESSION: Satisfactory placement of supportive appliances.. Head CT 04/11/20 00:00 IMPRESSION: NORMAL BRAIN CT WITHOUT CONTRAST. EVIDENCE OF ACUTE STROKE: NO. Assessment & Plan - Diagnosis (1) Diabetic infection of right foot Is this a current diagnosis for this admission?: Yes Plan: Impression: 1 day status post vigorous debridement right foot including skin subcutaneous tissue fascia tendon and bone with multiple drains placed, septic source appears controlled; wound cultures pending, Gram stain showing gram- positive cocci and gram-negative rods. No indication for further debridement at this time. Unfortunately patient had cardiac arrest earlier this morning, and is not following commands Recommendations: 1. Continue supportive care, IV antibiotics, leg elevation. Follow-up on micro sensitivities as made available 2. Will check right foot, wounds tomorrow morning. 3. I discussed the above with nursing staff and barrow worker helper. - Time Time Spent: 30 to 50 Minutes Smoking Cessation Education: 3 to 10 minutes
[2020-04-11 13:14] LABS: ARTERIAL BLOOD BASE EXCESS -7.8 mmol/L; ARTERIAL BLOOD H2CO3 0.85 mmol/L (1.05-1.35); ARTERIAL BLOOD HCO3 16.1 mmol/L (20-24); ARTERIAL BLOOD O2 SATURATION 75.2 % (94-98); ARTERIAL BLOOD PCO2 28.1 mmHg (35-45); ARTERIAL BLOOD PH 7.38 (7.35-7.45)
[2020-04-11 13:15] LABS: ARTERIAL BLOOD FIO2 50%
[2020-04-11 13:16] LABS: ARTERIAL BLOOD PO2 40.2 mmHg (80-100)
[2020-04-11] MEDS ORDERED: EPINEPHRINE INJ 1 MG/10 ML DISP.SYRIN ONE (14:28)
[2020-04-11] MEDS ORDERED: ROCURONIUM BROMIDE INJ 50 MG/5 ML VIAL IV ONE (14:28)
[2020-04-11] MEDS ORDERED: DOPAMINE HCL/D5W 800 MG/250 ML RTU BAG IV ONE (14:28)
[2020-04-11] MEDS ORDERED: SUCCINYLCHOLINE CHLORIDE INJ 200 MG/10 ML VIAL ONE (14:28)
[2020-04-11 16:08] LABS: ARTERIAL BLOOD BASE EXCESS -1.7 mmol/L; ARTERIAL BLOOD H2CO3 0.77 mmol/L (1.05-1.35); ARTERIAL BLOOD HCO3 20.2 mmol/L (20-24); ARTERIAL BLOOD O2 SATURATION 99.3 % (94-98); ARTERIAL BLOOD PCO2 25.6 mmHg (35-45); ARTERIAL BLOOD PH 7.52 (7.35-7.45); ARTERIAL BLOOD PO2 169.8 mmHg (80-100)
[2020-04-11 16:09] LABS: ARTERIAL BLOOD FIO2 50%
[2020-04-11] MEDS: ACETAMINOPHEN 325 MG TABLET PO PRN (16:39)
[2020-04-11] MEDS ORDERED: LABETALOL HCL INJ 20 MG/4 ML DISP.SYRIN IV ONE (17:42)
[2020-04-11] MEDS: LABETALOL HCL INJ 20 MG/4 ML DISP.SYRIN IV PRN (17:49)
[2020-04-11 18:29] LABS: URINE AMPHETAMINES SCREEN NEGATIVE; URINE BARBITURATES SCREEN NEGATIVE; URINE COCAINE SCREEN NEGATIVE; URINE MARIJUANA (THC) SCREEN NEGATIVE; URINE METHADONE SCREEN NEGATIVE; URINE PHENCYCLIDINE SCREEN NEGATIVE
[2020-04-11 18:33] LABS: URINE BENZODIAZEPINES SCREEN UNCONFIRMED POSITIVE
[2020-04-11] MEDS: VANCOMYCIN HCL 1,250 MG in DEXTROSE 5%-WATER 250 ML IV SCH (22:27)
[2020-04-11 22:54] LABS: ARTERIAL BLOOD BASE EXCESS -1.8 mmol/L; ARTERIAL BLOOD H2CO3 0.82 mmol/L (1.05-1.35); ARTERIAL BLOOD HCO3 20.6 mmol/L (20-24); ARTERIAL BLOOD O2 SATURATION 99.3 % (94-98); ARTERIAL BLOOD PCO2 27.4 mmHg (35-45); ARTERIAL BLOOD PH 7.49 (7.35-7.45); ARTERIAL BLOOD PO2 166.9 mmHg (80-100); ARTERIAL BLOOD TOTAL CO2 21.4 mmol/L (23-27)
[2020-04-11 23:03] LABS: ARTERIAL BLOOD FIO2 50%
[2020-04-11] MEDS ORDERED: INSULIN GLARGINE,HUM.REC.ANLOG 1,000 UNIT/10 ML VIAL (PYX) SUBCUT ONE (23:15)
[2020-04-12] MEDS: INSULIN REG, HUMAN 100 UNIT/ML 3 ML VIAL (PYX) SUBCUT SCH ×5 (00:04→23:47)
[2020-04-12] MEDS ORDERED: NORMAL SALINE 500 ML IV ONE (00:39)
[2020-04-12] MEDS ORDERED: PROPOFOL 1,000 MG/100 ML INFUS..BTL IV ONE (00:54)
[2020-04-12] MEDS: PROPOFOL 1,000 MG/100 ML INFUS..BTL IV PRN ×3 (01:04→23:28)
[2020-04-12] MEDS: PIPERACILLIN SODIUM/TAZOBACTAM 3.375 GM in NORMAL SALINE 100 ML IV SCH ×3 (02:23→17:18)
[2020-04-12 05:19] LABS: ARTERIAL BLOOD BASE EXCESS -1.2 mmol/L; ARTERIAL BLOOD H2CO3 0.86 mmol/L (1.05-1.35); ARTERIAL BLOOD HCO3 21.6 mmol/L (20-24); ARTERIAL BLOOD O2 SATURATION 99.1 % (94-98); ARTERIAL BLOOD PCO2 28.5 mmHg (35-45); ARTERIAL BLOOD PO2 147.7 mmHg (80-100); ARTERIAL BLOOD TOTAL CO2 22.5 mmol/L (23-27)
[2020-04-12 05:23] LABS: ABSOLUTE BASOPHILS # (AUTO) 0.1 10^3/uL (0.0-0.2); ABSOLUTE LYMPHOCYTES (AUTO) 1.7 10^3/uL (0.5-4.7); ABSOLUTE MONOCYTES (AUTO) 1.9 10^3/uL (0.1-1.4); ABSOLUTE NEUT (AUTO) 13.3 10^3/uL (1.7-8.2); BASOPHILS % (AUTO) 0.4 % (0-2); HEMATOCRIT 24.1 % (37.9-51.0); HEMOGLOBIN 8.2 g/dL (13.5-17.0); LYMPHOCYTES % (AUTO) 10.1 % (13-45); MEAN CORPUSCULAR HEMOGLOBIN 26.9 pg (27.0-33.4); MEAN CORPUSCULAR VOLUME 79 fl (80-97); PLATELET COUNT 350 10^3/uL (150-450); RED BLOOD COUNT 3.04 10^6/uL (4.35-5.55); RED CELL DISTRIBUTION WIDTH 15.3 % (11.5-14.0); SEGMENTED NEUTROPHILS % (AUTO) 78.5 % (42-78); TOTAL CELLS COUNTED % (AUTO) 100 %
[2020-04-12 05:31] LABS: ARTERIAL BLOOD FIO2 40%
[2020-04-12] MEDS: HEPARIN SOD (PORCINE) 5,000 UNIT/ML 1 ML VIAL SUBCUT SCH ×3 (05:32→22:26)
[2020-04-12 05:38] LABS: ALBUMIN 2.3 g/dL (3.5-5.0); ALKALINE PHOSPHATASE 103 U/L (38-126); ANION GAP 9 (5-19); ASPARTATE AMINO TRANSFERASE 77 U/L (17-59); BILIRUBIN,DIRECT 0.1 mg/dL (0.0-0.4); BILIRUBIN,TOTAL 0.8 mg/dL (0.2-1.3); BLOOD UREA NITROGEN 31 mg/dL (7-20); CALCIUM 7.5 mg/dL (8.4-10.2); CARBON DIOXIDE 22 mmol/L (22-30); CHLORIDE 109 mmol/L (98-107); GLUCOSE 143 mg/dL (75-110); POTASSIUM 3.5 mmol/L (3.6-5.0); TOTAL PROTEIN 5.1 g/dL (6.3-8.2)
[2020-04-12] MEDS: PANTOPRAZOLE SODIUM 40 MG VIAL IV SCH (09:36)
[2020-04-12] MEDS: ASPIRIN 81 MG TABLET, ENT COATED PO SCH (09:36)
[2020-04-12] MEDS: LABETALOL HCL INJ 20 MG/4 ML DISP.SYRIN IV PRN (10:11)
--- NOTE | 2020-04-12 10:36 | PDOC PROGRESS REPORT ---
Subjective Progress Note for:: 04/12/20 Reason For Visit: RIGHT FOOT GAS GANGRENE,DIABETES,CKD Physical Exam Vital Signs: Temp Pulse Resp BP Pulse Ox 99.7 F 93 18 123/57 L 100 04/12/20 08:00 04/12/20 10:00 04/12/20 10:00 04/12/20 08:00 04/12/20 10:00 Intake & Output 04/11/20 04/12/20 04/13/20 06:59 06:59 06:59 Intake Total 5050 4015 76 Output Total 1045 690 65 Balance 4005 3325 11 Weight 83 kg 84 kg Results Laboratory Results: 04/12/20 04:50 04/12/20 04:50 04/11/20 04/11/20 04/11/20 13:01 15:50 16:30 WBC RBC Hgb Hct MCV MCH MCHC RDW Plt Count Seg Neutrophils % Carbonic Acid 0.85 L 0.77 L HCO3/H2CO3 Ratio 18:1 26:1 ABG pH 7.38 7.52 H ABG pCO2 28.1 L 25.6 L ABG pO2 40.2 L* 169.8 H ABG HCO3 16.1 L 20.2 ABG O2 Saturation 75.2 L 99.3 H ABG Base Excess -7.8 -1.7 FiO2 50% 50% Sodium Potassium Chloride Carbon Dioxide Anion Gap BUN Creatinine Est GFR ( Amer) Glucose 384 H Lactic Acid Calcium Total Bilirubin AST Alkaline Phosphatase Total Protein Albumin 04/11/20 04/12/20 04/12/20 22:40 04:50 04:50 WBC 17.0 H RBC 3.04 L Hgb 8.2 L Hct 24.1 L MCV 79 L MCH 26.9 L MCHC 34.0 RDW 15.3 H Plt Count 350 Seg Neutrophils % 78.5 H Carbonic Acid 0.82 L 0.86 L HCO3/H2CO3 Ratio 25:1 25:1 ABG pH 7.49 H 7.50 H ABG pCO2 27.4 L 28.5 L ABG pO2 166.9 H 147.7 H ABG HCO3 20.6 21.6 ABG O2 Saturation 99.3 H 99.1 H ABG Base Excess -1.8 -1.2 FiO2 50% 40% Sodium Potassium Chloride Carbon Dioxide Anion Gap BUN Creatinine Est GFR ( Amer) Glucose Lactic Acid Calcium Total Bilirubin AST Alkaline Phosphatase Total Protein Albumin 04/12/20 04/12/20 04:50 04:50 WBC RBC Hgb Hct MCV MCH MCHC RDW Plt Count Seg Neutrophils % Carbonic Acid HCO3/H2CO3 Ratio ABG pH ABG pCO2 ABG pO2 ABG HCO3 ABG O2 Saturation ABG Base Excess FiO2 Sodium 139.6 Potassium 3.5 L Chloride 109 H Carbon Dioxide 22 Anion Gap 9 BUN 31 H Creatinine 3.44 H Est GFR ( Amer) 22 L Glucose 143 H Lactic Acid 1.1 Calcium 7.5 L Total Bilirubin 0.8 AST 77 H Alkaline Phosphatase 103 Total Protein 5.1 L Albumin 2.3 L 04/10/20 10:38 Foot - Right Gram Stain - Final 04/10/20 10:38 Foot - Right Wound Culture - Final Strep Anginosus Group Pseudomonas Aeruginosa Staphylococcus Aureus Anaerococcus (Peptostrep) Sp. Bacteroides Fragilis Group 04/09/20 23:50 Foot - Diabetic Ulcer Gram Stain - Final 04/09/20 23:50 Foot - Diabetic Ulcer Wound Culture - Final Strep Anginosus Group Pseudomonas Aeruginosa Staphylococcus Aureus 04/09/20 22:00 Blood Blood Culture - Final Strep Anginosus Group 04/09/20 20:52 Blood Blood Culture - Final Strep Anginosus Group 04/11/20 04/11/20 04/11/20 01:02 01:02 15:35 Creatine Kinase 743 H CK-MB (CK-2) 2.41 Troponin I 0.077 0.261 Impressions: Foot X-Ray 04/09/20 20:34 IMPRESSION: Findings are consistent with osteomyelitis involving the lateral aspect of the fifth metatarsal base. Associated underlying pathologic fracture deformity. Superimposed foci of soft tissue gas at this site could indicate infection with a gas-forming organism. copyright 2010 [employer]- All Rights Reserved Abdomen/Pelvis CT 04/11/20 00:00 IMPRESSION: NO SIGNIFICANT OR ACUTE PROCESS IN THE ABDOMEN OR PELVIS. Chest CT 04/11/20 00:00 IMPRESSION: MILD CARDIOMEGALY. BILATERAL PLEURAL EFFUSIONS WITH FAINT ATE LECTASIS. NO LOBAR INFILTRATES. Chest X-Ray 04/11/20 00:00 IMPRESSION: Satisfactory placement of supportive appliances.. Head CT 04/11/20 00:00 IMPRESSION: NORMAL BRAIN CT WITHOUT CONTRAST. EVIDENCE OF ACUTE STROKE: NO. Assessment & Plan - Diagnosis (1) Diabetic infection of right foot Is this a current diagnosis for this admission?: Yes (2) Osteomyelitis Qualifiers: Osteomyelitis type: unspecified type Osteomyelitis location: foot Laterality: right Qualified Code(s): M86.9 - Osteomyelitis, unspecified Is this a current diagnosis for this admission?: Yes - Plan Summary Plan Summary: 59 y/o M with severe diabetic foot infection, s/p I&D. He subsequently suffered cardiopulmonary arrest on the floor. He is now intubated, and on the vent. I have examined his foot today. There is no overt purulence present. [place] drains remain in place. Cont abx. The pt will require further surgery to completely treat his infection, as long as his mental status improves. Surgery will continue to follow. Sailor managing vent and other medical issues at this time.
[2020-04-12 12:44] LABS: ARTERIAL BLOOD BASE EXCESS -3.4 mmol/L; ARTERIAL BLOOD FIO2 40%; ARTERIAL BLOOD H2CO3 0.88 mmol/L (1.05-1.35); ARTERIAL BLOOD HCO3 19.9 mmol/L (20-24); ARTERIAL BLOOD O2 SATURATION 98.5 % (94-98); ARTERIAL BLOOD PCO2 29.2 mmHg (35-45); ARTERIAL BLOOD PH 7.45 (7.35-7.45); ARTERIAL BLOOD TOTAL CO2 20.8 mmol/L (23-27)
[2020-04-12] MEDS ORDERED: VALPROATE SODIUM INJ/PF 500 MG/5 ML SDV IV ONE (15:38)
[2020-04-12] MEDS ORDERED: FENTANYL CITRATE INJ/PF 100 MCG/2 ML AMPUL ONE (15:48)
[2020-04-12] MEDS ORDERED: FENTANYL CITRATE INJ/PF 100 MCG/2 ML AMPUL IV ONE (16:00)
[2020-04-12] MEDS ORDERED: NORMAL SALINE IV ONE (17:00)
[2020-04-12] MEDS ORDERED: VALPROATE SODIUM IV ONE (17:00)
[2020-04-12] MEDS: ACETAMINOPHEN 325 MG TABLET PO PRN (17:18)
--- NOTE | 2020-04-12 18:49 | PDOC CRITICAL CARE PROG REPORT ---
General Date:: 04/12/20 ICU Day:: 2 Ventilator Day:: 2 Hospital Day:: 2 Resuscitation Status: Full Code Medical Power of Front Desk Officer: Amber Events in the past 12 to 24 Hours:: 04.12.2020: Patient has remained comatose and required propofol secondary to excessive teeth clenching while on the ventilator. This caused dental trauma to the lower dental ridge while the patient was intubated. He was noted to have myoclonic movements today and he was started on Depakote. After repeat examinations these have improved with the concurrent use of propofol and Depakote. Extensive review of the reason for the patient's respiratory arrest was done. There was no sedate of medications given. The states that he was well and perfectly fine at 9 PM the night before the event occurred. Review of the nursing notes they noted bradycardia and coughing. Unfortunately, his creatinine prevented a CT scan to rule out PE. Initially hypotensive, he is now improved and off vasopressor therapy. Review of systems relevant to events:: states that patient sleeps in a chair at night upright. She does endorse that he snores but does not know if he has sleep apnea because she does not sleep with him physically. She does not know if he is ever been told he has sleep apnea. Review of medications and antibiotics does not show any medications which would have led to arrhythmias. Reason for ICU Addmission:: Post respiratorycardiac arrest - Medications: Medications reviewed and adjusted accordingly: Yes Vasopressors:: None Sedation:: Propofol, depakote bolus Physical Exam Vital Signs: Temp Pulse Resp BP Pulse Ox 101.1 F H 105 H 16 113/58 L 99 04/12/20 16:00 04/12/20 16:00 04/12/20 16:00 04/12/20 16:00 04/12/20 16:00 Intake & Output 04/11/20 04/12/20 04/13/20 06:59 06:59 06:59 Intake Total 5050 4015 193 Output Total 1045 690 255 Balance 4005 3325 -62 Weight 83 kg 84 kg Weight/Height Weight 84 kg Height 6 ft General appearance: PRESENT: no acute distress, well-developed, well-nourished Exam: Intubated, older appearing nontoxic 59-year-old black male who is comatose. Myoclonic movement noted with any stimulus. Repeat examination multiple times shows improvement in myoclonic status on propofol and after Depakote. Head exam: PRESENT: atraumatic, normocephalic Eye exam: PRESENT: conjunctiva pink, PERRLA. ABSENT: conjunctival injection, nystagmus, scleral icterus Mouth exam: PRESENT: dry mucosa, neck supple, tongue midline Teeth exam: PRESENT: poor dentation, other - 3 lower frontal teeth loose. Neck exam: PRESENT: other - Right IJ central venous catheter clean dry intact without hematoma. ABSENT: carotid bruit, JVD, lymphadenopathy, thyromegaly, tracheal deviation Respiratory exam: PRESENT: decreased breath sounds - At bases, unlabored, other - Because of his alkalosis he was placed on pressure support. Over time he became tachypneic and was placed back on assist control.. ABSENT: accessory muscle use Cardiovascular exam: PRESENT: RRR, +S1, +S2, other - Critical care basic echo was done. Images are difficult to evaluate secondary to anatomy. He appears to have slightly reduced ejection fraction however this is only seen on one window.. ABSENT: rubs Pulses: ABSENT: normal dorsalis pedis pul Vascular exam: PRESENT: normal capillary refill. ABSENT: pallor GI/Abdominal exam: PRESENT: normal bowel sounds, soft. 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 Right foot: Dressing was removed. There are [place] drains in 3 incision sites which are actively draining. There is minimal odor. There is no erythema. No Evidence of active ischemia. Musculoskeletal exam: PRESENT: deformity - Left BKA. See right foot exam above Neurological exam: PRESENT: altered - Comatose. Has spontaneous respiratory rate. FOUR score: 0-2-4-1=7, other - Lefty Coma Scale 11i-2: posturing with stimulus and myoclonus of face, eyelids. Unable to perform babinski. Skin exam: PRESENT: normal color. ABSENT: erythema, jaundice, pallor, petechiae Tubes/Lines: PRESENT: Endotracheal Tube, Central Line, Arterial Catheter, Other - James type urinary catheter. Orogastric tube Laboratory/Radiographs Laboratory Results: 04/12/20 04:50 04/12/20 04:50 04/11/20 04/12/20 04/12/20 22:40 04:50 04:50 WBC 17.0 H RBC 3.04 L Hgb 8.2 L Hct 24.1 L MCV 79 L MCH 26.9 L MCHC 34.0 RDW 15.3 H Plt Count 350 Seg Neutrophils % 78.5 H Carbonic Acid 0.82 L 0.86 L HCO3/H2CO3 Ratio 25:1 25:1 ABG pH 7.49 H 7.50 H ABG pCO2 27.4 L 28.5 L ABG pO2 166.9 H 147.7 H ABG HCO3 20.6 21.6 ABG O2 Saturation 99.3 H 99.1 H ABG Base Excess -1.8 -1.2 FiO2 50% 40% Sodium Potassium Chloride Carbon Dioxide Anion Gap BUN Creatinine Est GFR ( Amer) Glucose Lactic Acid Calcium Total Bilirubin AST Alkaline Phosphatase Ammonia Total Protein Albumin 04/12/20 04/12/20 04/12/20 04:50 04:50 12:30 WBC RBC Hgb Hct MCV MCH MCHC RDW Plt Count Seg Neutrophils % Carbonic Acid 0.88 L HCO3/H2CO3 Ratio 22:1 ABG pH 7.45 ABG pCO2 29.2 L ABG pO2 116.0 H ABG HCO3 19.9 L ABG O2 Saturation 98.5 H ABG Base Excess -3.4 FiO2 40% Sodium 139.6 Potassium 3.5 L Chloride 109 H Carbon Dioxide 22 Anion Gap 9 BUN 31 H Creatinine 3.44 H Est GFR ( Amer) 22 L Glucose 143 H Lactic Acid 1.1 Calcium 7.5 L Total Bilirubin 0.8 AST 77 H Alkaline Phosphatase 103 Ammonia Total Protein 5.1 L Albumin 2.3 L 04/12/20 16:05 WBC RBC Hgb Hct MCV MCH MCHC RDW Plt Count Seg Neutrophils % Carbonic Acid HCO3/H2CO3 Ratio ABG pH ABG pCO2 ABG pO2 ABG HCO3 ABG O2 Saturation ABG Base Excess FiO2 Sodium Potassium Chloride Carbon Dioxide Anion Gap BUN Creatinine Est GFR ( Amer) Glucose Lactic Acid Calcium Total Bilirubin AST Alkaline Phosphatase Ammonia < 8.7 L Total Protein Albumin 04/10/20 10:38 Foot - Right Gram Stain - Final 04/10/20 10:38 Foot - Right Wound Culture - Final Strep Anginosus Group Pseudomonas Aeruginosa Staphylococcus Aureus Anaerococcus (Peptostrep) Sp. Bacteroides Fragilis Group 04/09/20 23:50 Foot - Diabetic Ulcer Gram Stain - Final 04/09/20 23:50 Foot - Diabetic Ulcer Wound Culture - Final Strep Anginosus Group Pseudomonas Aeruginosa Staphylococcus Aureus 04/09/20 22:00 Blood Blood Culture - Final Strep Anginosus Group 04/09/20 20:52 Blood Blood Culture - Final Strep Anginosus Group 04/11/20 04/11/20 04/11/20 01:02 01:02 15:35 Creatine Kinase 743 H CK-MB (CK-2) 2.41 Troponin I 0.077 0.261 Impressions: Foot X-Ray 04/09/20 20:34 IMPRESSION: Findings are consistent with osteomyelitis involving the lateral aspect of the fifth metatarsal base. Associated underlying pathologic fracture deformity. Superimposed foci of soft tissue gas at this site could indicate infection with a gas-forming organism. copyright 2010 [employer]- All Rights Reserved Abdomen/Pelvis CT 04/11/20 00:00 IMPRESSION: NO SIGNIFICANT OR ACUTE PROCESS IN THE ABDOMEN OR PELVIS. Chest CT 04/11/20 00:00 IMPRESSION: MILD CARDIOMEGALY. BILATERAL PLEURAL EFFUSIONS WITH FAINT ATELECTASIS. NO LOBAR INFILTRATES. Chest X-Ray 04/11/20 00:00 IMPRESSION: Satisfactory placement of supportive appliances.. Head CT 04/11/20 00:00 IMPRESSION: NORMAL BRAIN CT WITHOUT CONTRAST. EVIDENCE OF ACUTE STROKE: NO. All labs, radiographs, diagnostic studies and EKGs were personally reviewed: Yes In addition, reports of radiographic and diagnostic studies were read: Yes Assessment and Plan - Diagnosis (1) Cardiopulmonary arrest with successful resuscitation Is this a current diagnosis for this admission?: Yes (2) Brain anoxic injury Is this a current diagnosis for this admission?: Yes (3) Coma Qualifiers: Coma depth: Lefty coma 3-8 Coma timin hours or more after hospital admission Qualified Code(s): R40.2434 - Lefty coma scale score 3-8, 24 hours or more after hospital admission Is this a current diagnosis for this admission?: Yes (4) Myoclonia epileptica Is this a current diagnosis for this admission?: Yes (5) Acute on chronic renal failure Qualifiers: Acute renal failure type: with acute tubular necrosis Chronic kidney disease stage: stage 4 (severe) Qualified Code(s): N17.0 - Acute kidney failure with tubular necrosis; N18.4 - Chronic kidney disease, stage 4 (severe) Is this a current diagnosis for this admission?: Yes (6) Metabolic acidosis Is this a current diagnosis for this admission?: Yes (7) Acute respiratory failure with hypoxia and hypercapnia Is this a current diagnosis for this admission?: Yes Plan Summary: Respiratory: Patient appears to have had a respiratory arrest which led to a cardiac arrest. Given the nursing notes this is a workable hypothesis. At this point he is unable to be liberated from the mechanical ventilation secondary to his neurological status and his respiratory decline on pressure support. We will be certain to monitor for aspiration pneumonitis. Possibility of hypercarbia which ensued during the night in the face of infection is plausible but not distinct Infectious: Has strep anginosis in blood stream and with Pseudomonas aeruginosa, Staphylococcus aureus and and Aerococcus which is a Peptostreptococcus species as well as Bacteroides in foot wound. This is a mixed aerobic and anaerobic multi-bacterial infection. Patient is on appropriate antibiotics. These antibiotics do not appear to have caused this cardiac process however one needs to be mindful with the possibility of endocarditis with a strep species. Have ordered a formal echo to evaluate both cardiac function and to evaluate valves. Cardiac: I am extremely hard pressed to determine the exact etiology for this patient's cardiopulmonary arrest. It would appear to be, and certainly convenient to assume this was a pure respiratory arrest leading to cardiac arr est. EKG was unremarkable except for mild ST segment depression and repolarization changes. The existence of an arrhythmia would need to be considered. Troponins have been on remarkable. I have ordered an echocardiogram. We will continue to monitor and follow. His vasopressor needs have now ceased and he is not in cardiogenic shock. Hematologic: Patient has active bloodstream infection. Chronic anemia exist from CKD 4 but does not require any blood products. Repeat blood cultures in the morning . Endocrine: Patient has type 2 diabetes which has been poorly controlled. Continue to monitor and supplement as needed. Renal: Patient has acute on chronic renal failure with CKD 4. Patient's will need to be adjusted aced on his GFR. No morphine or medications with prolonged metabolic profile should be used. Metabolic: Patient had been on bicarbonate drip because of his acidosis. His pH is significantly elevated and this was stopped 24 hours ago. Adjusted ventilator to improve. Will follow up with repeat analysis. Monitor electrolytes and treat supportively Alimentary: No active GI issues. Will initiate nutrition in the next 24 hours. Had mild elevation in LFTs. We will continue to follow. This may represent muscle as well. We will follow-up with repeat CK and LFTs Neurologic: Patient appears to have myoclonic movement and have started Depakote. This appears to have improved. Seizures are seen. Have ordered EEG. And appears to have an anoxic brain injury. CT scan shows no acute changes of the brain. Continue to monitor and support based on response to Depakote. Check ammonia level and Depakote level in the morning. Sedation: Plan will be to wean propofol in the morning as long as seizures and and/or myoclonic changes are not present. Will transition to either Precedex or no sedation depending on patient's presentation. Lines/Tubes: Patient has central line placed 04/11/2020 today is day 2 arterial line placed on the same day day 2 Other: Critical Time Critical Time (minutes): 90 Level of Care: ICU Anticipated discharge: Acute Rehab -: 1. The care of a critical patient is a dynamic process. This note is a patient accounting representative synopsis but static in nature. The timeframe for treatments given in order is not necessarily the actual time these treatments may have been done. 2. This patient requires critical care secondary to ongoing requirements for therapy not offered or safe outside the critical care environment. Transfer to a lower level of care will result in altered life or limb morbidity and mortality. 3. Multidisciplinary rounds completed. 4. ABCDE bundle addressed. 5. Updated , Amber at bedside.
[2020-04-12] MEDS ORDERED: PHARMACY COMMUNICATION ORDER MC NR (19:00)
--- NOTE | 2020-04-12 19:57 | RADIOLOGY REPORT (SQ) ---
EXAM DESCRIPTION: CHEST SINGLE VIEW IMAGES COMPLETED DATE/TIME: 04/12/2020 6:25 pm REASON FOR STUDY: respiratory failure COMPARISON: CT chest 04/11/2020. Chest radiograph, 04/11/2020 EXAM PARAMETERS: NUMBER OF VIEWS: One view. TECHNIQUE: Single frontal radiographic view of the chest acquired. RADIATION DOSE: NA LIMITATIONS: None. FINDINGS: LUNGS AND PLEURA: No opacities, masses or pneumothorax. No pleural effusion. MEDIASTINUM AND HILAR STRUCTURES: No masses. Contour normal. HEART AND VASCULAR STRUCTURES: Heart normal in size. Normal vasculature. BONES: No acute findings. HARDWARE: Endotracheal tube remains in the upper trachea approximately 7 cm from the ernesto. Esophag ogastric tube tip and side-hole are below the diaphragm within the gastric fundus. A right IJ centra l venous catheter with tip at the cavoatrial junction is unchanged. OTHER: No other significant finding. IMPRESSION: 1. No acute cardiopulmonary disease. 2. Endotracheal tube is in the upper thoracic trachea. TECHNICAL DOCUMENTATION: JOB ID: [id number] 2010 [employer]- All Rights Reserved Reading location - IP/workstation name: [email or web address]
[2020-04-12 20:42] LABS: ARTERIAL BLOOD BASE EXCESS -3.1 mmol/L; ARTERIAL BLOOD H2CO3 1.07 mmol/L (1.05-1.35); ARTERIAL BLOOD HCO3 21.3 mmol/L (20-24); ARTERIAL BLOOD PCO2 35.5 mmHg (35-45); ARTERIAL BLOOD PO2 108.5 mmHg (80-100); ARTERIAL BLOOD TOTAL CO2 22.4 mmol/L (23-27)
[2020-04-12 20:43] LABS: ARTERIAL BLOOD FIO2 2
[2020-04-12] MEDS ORDERED: VANCOMYCIN HCL 750 MG in DEXTROSE 5%-WATER 250 ML IV SCH (22:00)
[2020-04-12] MEDS: INSULIN GLARGINE,HUM.REC.ANLOG 1,000 UNIT/10 ML VIAL SUBCUT SCH (22:22)
[2020-04-12 22:49] LABS: ANION GAP 11 (5-19); BLOOD UREA NITROGEN 38 mg/dL (7-20); CALCIUM 7.7 mg/dL (8.4-10.2); CARBON DIOXIDE 22 mmol/L (22-30); CHLORIDE 107 mmol/L (98-107); GLUCOSE 95 mg/dL (75-110); POTASSIUM 4.4 mmol/L (3.6-5.0)
[2020-04-13] MEDS ORDERED: ALBUMIN HUMAN 500 ML IV ONE ×2 (00:05→00:43)
[2020-04-13] MEDS: PIPERACILLIN SODIUM/TAZOBACTAM 2.25 GM in NORMAL SALINE 100 ML IV SCH ×2 (01:01→05:48)
[2020-04-13] MEDS: VALPROATE SODIUM 500 MG in NORMAL SALINE 100 ML IV SCH ×3 (01:11→17:54)
[2020-04-13 05:06] LABS: ABSOLUTE BASOPHILS # (AUTO) 0.1 10^3/uL (0.0-0.2); ABSOLUTE EOSINOPHILS # (AUTO) 0.2 10^3/uL (0.0-0.6); ABSOLUTE LYMPHOCYTES (AUTO) 2.3 10^3/uL (0.5-4.7); ABSOLUTE MONOCYTES (AUTO) 2.3 10^3/uL (0.1-1.4); ABSOLUTE NEUT (AUTO) 11.5 10^3/uL (1.7-8.2); BASOPHILS % (AUTO) 0.5 % (0-2); EOSINOPHILS % (AUTO) 1.1 % (0-6); HEMOGLOBIN 8.3 g/dL (13.5-17.0); LYMPHOCYTES % (AUTO) 14.1 % (13-45); MEAN CORPUSCULAR HEMOGLOBIN 26.7 pg (27.0-33.4); MEAN CORPUSCULAR HGB CONC 33.4 g/dL (32.0-36.0); MEAN CORPUSCULAR VOLUME 80 fl (80-97); MONOCYTES % (AUTO) 13.8 % (3-13); PLATELET COUNT 373 10^3/uL (150-450); RED BLOOD COUNT 3.12 10^6/uL (4.35-5.55); RED CELL DISTRIBUTION WIDTH 14.7 % (11.5-14.0); SEGMENTED NEUTROPHILS % (AUTO) 70.5 % (42-78); TOTAL CELLS COUNTED % (AUTO) 100 %; WHITE BLOOD COUNT 16.3 10^3/uL (4.0-10.5)
[2020-04-13] MEDS: DEXTROSE 5%-1/2 NORMAL SALINE 1,000 ML IV PRN ×2 (05:12→15:44)
[2020-04-13 05:19] LABS: ARTERIAL BLOOD BASE EXCESS -2.5 mmol/L; ARTERIAL BLOOD FIO2 35%; ARTERIAL BLOOD H2CO3 1.15 mmol/L (1.05-1.35); ARTERIAL BLOOD HCO3 22.3 mmol/L (20-24); ARTERIAL BLOOD O2 SATURATION 97.9 % (94-98); ARTERIAL BLOOD PCO2 38.3 mmHg (35-45); ARTERIAL BLOOD PH 7.38 (7.35-7.45); ARTERIAL BLOOD PO2 109.4 mmHg (80-100); ARTERIAL BLOOD TOTAL CO2 23.5 mmol/L (23-27)
[2020-04-13] MEDS: INSULIN REG, HUMAN 100 UNIT/ML 3 ML VIAL (PYX) SUBCUT SCH ×4 (05:23→23:49)
[2020-04-13 05:28] LABS: ALBUMIN 2.9 g/dL (3.5-5.0); ALKALINE PHOSPHATASE 99 U/L (38-126); ANION GAP 10 (5-19); ASPARTATE AMINO TRANSFERASE 78 U/L (17-59); BILIRUBIN,DIRECT 0.3 mg/dL (0.0-0.4); BILIRUBIN,TOTAL 0.8 mg/dL (0.2-1.3); BLOOD UREA NITROGEN 38 mg/dL (7-20); CARBON DIOXIDE 23 mmol/L (22-30); CHLORIDE 108 mmol/L (98-107); CREATINE KINASE 540 U/L (55-170); POTASSIUM 4.4 mmol/L (3.6-5.0); TOTAL PROTEIN 5.7 g/dL (6.3-8.2)
--- NOTE | 2020-04-13 05:29 | PDOC PROGRESS REPORT ---
Subjective Progress Note for:: 04/13/20 Reason For Visit: RIGHT FOOT GAS GANGRENE,DIABETES,CKD Physical Exam Vital Signs: Temp Pulse Resp BP Pulse Ox 97.5 F 91 28 H 103/56 L 100 04/13/20 05:19 04/12/20 22:00 04/13/20 02:00 04/12/20 18:00 04/13/20 04:41 Intake & Output 04/11/20 04/12/20 04/13/20 06:59 06:59 06:59 Intake Total 5050 4015 1265 Output Total 1045 690 515 Balance 4005 3325 750 Weight 83 kg 84 kg 85.5 kg Results Laboratory Results: 04/13/20 04:43 04/12/20 04/12/20 04/12/20 04:50 04:50 04:50 WBC RBC Hgb Hct MCV MCH MCHC RDW Plt Count Seg Neutrophils % Carbonic Acid 0.86 L HCO3/H2CO3 Ratio 25:1 ABG pH 7.50 H ABG pCO2 28.5 L ABG pO2 147.7 H ABG HCO3 21.6 ABG O2 Saturation 99.1 H ABG Base Excess -1.2 FiO2 40% Sodium 139.6 Potassium 3.5 L Chloride 109 H Carbon Dioxide 22 Anion Gap 9 BUN 31 H Creatinine 3.44 H Est GFR ( Amer) 22 L Glucose 143 H Lactic Acid 1.1 Calcium 7.5 L Total Bilirubin 0.8 AST 77 H Alkaline Phosphatase 103 Ammonia Total Protein 5.1 L Albumin 2.3 L 04/12/20 04/12/20 04/12/20 12:30 16:05 20:07 WBC RBC Hgb Hct MCV MCH MCHC RDW Plt Count Seg Neutrophils % Carbonic Acid 0.88 L 1.07 HCO3/H2CO3 Ratio 22:1 19:1 ABG pH 7.45 7.40 ABG pCO2 29.2 L 35.5 ABG pO2 116.0 H 108.5 H ABG HCO3 19.9 L 21.3 ABG O2 Saturation 98.5 H 98.0 ABG Base Excess -3.4 -3.1 FiO2 40% 2 Sodium Potassium Chloride Carbon Dioxide Anion Gap BUN Creatinine Est GFR ( Amer) Glucose Lactic Acid Calcium Total Bilirubin AST Alkaline Phosphatase Ammonia < 8.7 L Total Protein Albumin 04/12/20 04/13/20 04/13/20 22:10 04:43 04:43 WBC 16.3 H RBC 3.12 L Hgb 8.3 L Hct 25.0 L MCV 80 MCH 26.7 L MCHC 33.4 RDW 14.7 H Plt Count 373 Seg Neutrophils % 70.5 Carbonic Acid 1.15 HCO3/H2CO3 Ratio 19:1 ABG pH 7.38 ABG pCO2 38.3 ABG pO2 109.4 H ABG HCO3 22.3 ABG O2 Saturation 97.9 ABG Base Excess -2.5 FiO2 35% Sodium 139.9 Potassium 4.4 Chloride 107 Carbon Dioxide 22 Anion Gap 11 BUN 38 H Creatinine 3.52 H Est GFR ( Amer) 22 L Glucose 95 Lactic Acid Calcium 7.7 L Total Bilirubin AST Alkaline Phosphatase Ammonia Total Protein Albumin 04/10/20 10:38 Foot - Right Gram Stain - Final 04/10/20 10:38 Foot - Right Wound Culture - Final Strep Anginosus Group Pseudomonas Aeruginosa Staphylococcus Aureus Anaerococcus (Peptostrep) Sp. Bacteroides Fragilis Group 04/09/20 23:50 Foot - Diabetic Ulcer Gram Stain - Final 04/09/20 23:50 Foot - Diabetic Ulcer Wound Culture - Final Strep Anginosus Group Pseudomonas Aeruginosa Staphylococcus Aureus 04/09/20 22:00 Blood Blood Culture - Final Strep Anginosus Group 04/09/20 20:52 Blood Blood Culture - Final Strep Anginosus Group 04/11/20 04/11/20 04/11/20 01:02 01:02 15:35 Creatine Kinase 743 H CK-MB (CK-2) 2.41 Troponin I 0.077 0.261 Impressions: Foot X-Ray 04/09/20 20:34 IMPRESSION: Findings are consistent with osteomyelitis involving the lateral aspect of the fifth metatarsal base. Associated underlying pathologic fracture deformity. Superimposed foci of soft tissue gas at this site could indicate infection with a gas-forming organism. copyright 2011 [employer]- All Rights Reserved Abdomen/Pelvis CT 04/11/20 00:00 IMPRESSION: NO SIGNIFICANT OR ACUTE PROCESS IN THE ABDOMEN OR PELVIS. Chest CT 04/11/20 00:00 IMPRESSION: MILD CARDIOMEGALY. BILATERAL PLEURAL EFFUSIONS WITH FAINT ATELECTASIS. NO LOBAR INFILTRATES. Head CT 04/11/20 00:00 IMPRESSION: NORMAL BRAIN CT WITHOUT CONTRAST. EVIDENCE OF ACUTE STROKE: NO. Chest X-Ray 04/12/20 19:00 IMPRESSION: 1. No acute cardiopulmonary disease. 2. Endotracheal tube is in the upper thoracic trachea. Assessment & Plan - Diagnosis (1) Diabetic infection of right foot Is this a current diagnosis for this admission?: Yes (2) Osteomyelitis Qualifiers: Osteomyelitis type: unspecified type Osteomyelitis location: foot Lateral ity: right Qualified Code(s): M86.9 - Osteomyelitis, unspecified Is this a current diagnosis for this admission?: Yes - Plan Summary Plan Summary: 59 y/o M with severe diabetic foot infection, s/p I&D. He subsequently suffered cardiopulmonary arrest on the floor. He is now intubated, and on the vent. I have examined his foot today. There is no overt purulence present. Babar drains remain in place. Cont abx. No purposful movements or responses this am. The pt will require further surgery to completely treat his infection, as long as his mental status improves. Surgery will continue to follow. Assurance Senior managing vent and other medical issues at this time.
[2020-04-13] MEDS ORDERED: PIPERACILLIN/TAZOBACTAM 2.25 GM VIAL IV ONE (05:38)
[2020-04-13 05:42] LABS: GLUCOSE 67 mg/dL (75-110)
[2020-04-13] MEDS: HEPARIN SOD (PORCINE) 5,000 UNIT/ML 1 ML VIAL SUBCUT SCH ×3 (05:50→21:59)
[2020-04-13] MEDS: PROPOFOL 1,000 MG/100 ML INFUS..BTL IV PRN ×2 (06:33→12:18)
--- NOTE | 2020-04-13 08:29 | RADIOLOGY REPORT (SQ) ---
EXAM DESCRIPTION: CHEST SINGLE VIEW IMAGES COMPLETED DATE/TIME: 04/13/2020 6:42 am REASON FOR STUDY: hypoxic respiratory failure COMPARISON: 04/12/2020 FINDINGS: Single-view chest AP portable semi-upright. Lines and tubes are stable and include endotracheal, nasogastric tubes and right IJ line. The ET tub e persistently lies just at the level of the clavicles and should perhaps be advanced slightly. Tube lies approximately 9 cm above the ernesto. Generally clear lungs. No pneumothorax. TECHNICAL DOCUMENTATION: JOB ID: [id number] Reading location - IP/workstation name: [email or web address]
[2020-04-13] MEDS: PANTOPRAZOLE SODIUM 40 MG VIAL IV SCH (10:58)
[2020-04-13] MEDS: ASPIRIN 81 MG TABLET, ENT COATED PO SCH (10:59)
[2020-04-13] MEDS ORDERED: PIPERACILLIN SODIUM/TAZOBACTAM 2.25 GM in NORMAL SALINE 50 ML IV SCH ×4 (12:00)
[2020-04-13] MEDS: MEROPENEM 500 MG in NORMAL SALINE 50 ML IV SCH (12:13)
[2020-04-13] MEDS: LABETALOL HCL INJ 20 MG/4 ML DISP.SYRIN IV PRN ×2 (12:42→20:20)
[2020-04-13] MEDS: IPRATROPIUM/ALBUTEROL 0.5-2.5 MG/3 ML AMPUL NEB PRN (13:40)
[2020-04-13] MEDS: DEXMEDETOMIDINE IN 0.9 % NACL 400 MCG/100 ML RTUPB IV PRN ×2 (16:00→23:08)
--- NOTE | 2020-04-13 19:13 | NEURO WORKBENCH EEG REPORT ---
EEG Report Patient: Colin Lisa ID: [id number] Referring Doctor: Pancho Lopez Date: 04/13/2020 Reason for study: Evaluate Epileptiform activity Medications: Aspirin, Precedex, Insulin, Protonix History: This is a 59 year old male with a history of diabetes, HTN, left AKA, admitted with right foot gangrene. This EEG was requested for evaluation of epileptiform activity. EEG Interpretation: This EEG was recorded with a patient intubated in the ICU. There was no apparent state change with activation. The EEG showed a monotonous burst-suppression pattern. There were periods of approximately 1-2 seconds of burst EEG activity followed by periods of 5-10 seconds of global ampliutude suppression. Photic stimulation resulted in no appreciable change from the background activity. The EKG showed a rhythm of approximately 70-95 beats per minute, with some irregularity. EEG Impression: This EEG is markedly abnormal due to a burst-suppression pattern, consistent with diffuse cerebral dysfunction as may be seen with hypoxia-ischemia, drug Intoxication, or other diffuse cerebral injury. Further evaluation with imaging such as MRI should be considered. In addition, there were cardiac rhythm abnormalities which should be further evaluated. INTERPRETING NEUROLOGIST: Richar Gillespie MD Board certified by the [place] [employer] in Neurology, Clinical Neurophysiology, and Sleep Medicine [facility]
--- NOTE | 2020-04-13 19:35 | PDOC CRITICAL CARE PROG REPORT ---
General Date:: 04/13/20 ICU Day:: 3 Ventilator Day:: 3 Hospital Day:: 3 Resuscitation Status: Full Code Medical Power of General Utility Machine Operator: Amber Events in the past 12 to 24 Hours:: 04.13.2020: Patient's myoclonic movements have dramatically decreased and occur only occasionally. He opens his eyes today with voice but is not always consistent. Urine output has been low and IV fluids were started with impr ovement. 04.12.2020: Patient has remained comatose and required propofol secondary to ex cessive teeth clenching while on the ventilator. This caused dental trauma to the lower dental ridge while the patient was intubated. He was noted to have myoclonic movements today and he was started on Depakote. After repeat examinations these have improved with the concurrent use of propofol and Depakote. Extensive review of the reason for the patient's respiratory arrest was done. There was no sedate of medications given. The states that he was well and perfectly fine at 9 PM the night before the event occurred. Review of the nursing notes they noted bradycardia and coughing. Unfortunately, his creatinine prevented a CT scan to rule out PE. Initially hypotensive, he is now improved and off vasopressor therapy. Review of systems relevant to events:: 04.13.2020: No active seizures noted. EEG ongoing during examination. PEEP reduced to 5. No further respiratory distress. 04.12.2020: states that patient sleeps in a chair at night upright. She does endorse that he snores but does not know if he has sleep apnea because she does not sleep with him physically. She does not know if he is ever been told he has sleep apnea. Review of medications and antibiotics does not show any medications which would have led to arrhythmias. Reason for ICU Addmission:: Post respiratorycardiac arrest - Medications: Medications reviewed and adjusted accordingly: Yes Vasopressors:: None Sedation:: Propofol, depakote --precedex Physical Exam Vital Signs: Temp Pulse Resp BP Pulse Ox 97.3 F 78 15 140/61 H 100 04/13/20 16:00 04/13/20 18:00 04/13/20 18:00 04/13/20 18:00 04/13/20 18:00 Intake & Output 04/12/20 04/13/20 04/14/20 06:59 06:59 06:59 Intake Total 4015 1443 1237 Output Total 070 515 620 Balance 3325 928 617 Weight 84 kg 85.5 kg Weight/Height Weight 85.5 kg Height 6 ft General appearance: PRESENT: no acute distress, well-developed, well-nourished Exam: Intubated ill and toxic older appearing 59-year-old male no acute distress. No active seizures no monoclonas Eye exam: PRESENT: conjunctival injection, conjunctiva pink, PERRLA. ABSENT: nystagmus, scleral icterus Mouth exam: PRESENT: moist, neck supple, tongue midline, other - Significant tongue swelling has improved. There is mild abrasion from teeth clenching previously Teeth exam: PRESENT: poor dentation, other - Lower incisors very loose with disruption of alveolar tissue. There is significant dental loss upper and lower which were present prior to admission Neck exam: ABSENT: carotid bruit, JVD, lymphadenopathy, thyromegaly Respiratory exam: PRESENT: clear to auscultation king. ABSENT: accessory muscle use, rales, rhonchi, unlabored, wheezes Pulses: ABSENT: normal dorsalis pedis pul Vascular exam: PRESENT: normal capillary refill. ABSENT: pallor GI/Abdominal exam: PRESENT: normal bowel sounds, soft. 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 Right foot has surgical dressing and drains in. Neurological exam: PRESENT: altered, other - Comatose. [place] Coma Scale is 2-1T-1. No myoclonus. No nystagmus. Eyes open to loud voice and noxious stimulus. Skin exam: ABSENT: cyanosis, jaundice, mottled, pallor Tubes/Lines: PRESENT: Endotracheal Tube, Central Line, Arterial Catheter - James type urinary catheter, no gastric tube Laboratory/Radiographs Laboratory Results: 04/13/20 04:43 04/13/20 04:43 04/12/20 04/12/20 04/13/20 20:07 22:10 04:43 WBC RBC Hgb Hct MCV MCH MCHC RDW Plt Count Seg Neutrophils % Carbonic Acid 1.07 HCO3/H2CO3 Ratio 19:1 ABG pH 7.40 ABG pCO2 35.5 ABG pO2 108.5 H ABG HCO3 21.3 ABG O2 Saturation 98.0 ABG Base Excess -3.1 FiO2 2 Sodium 139.9 Potassium 4.4 Chloride 107 Carbon Dioxide 22 Anion Gap 11 BUN 38 H Creatinine 3.52 H Est GFR ( Amer) 22 L Glucose 95 Lactic Acid Calcium 7.7 L Total Bilirubin GGT AST Alkaline Phosphatase Ammonia < 8.7 L Total Protein Albumin 04/13/20 04/13/20 04/13/20 04:43 04:43 04:43 WBC 16.3 H RBC 3.12 L Hgb 8.3 L Hct 25.0 L MCV 80 MCH 26.7 L MCHC 33.4 RDW 14.7 H Plt Count 373 Seg Neutrophils % 70.5 Carbonic Acid 1.15 HCO3/H2CO3 Ratio 19:1 ABG pH 7.38 ABG pCO2 38.3 ABG pO2 109.4 H ABG HCO3 22.3 ABG O2 Saturation 97.9 ABG Base Excess -2.5 FiO2 35% Sodium 141.0 Potassium 4.4 Chloride 108 H Carbon Dioxide 23 Anion Gap 10 BUN 38 H Creatinine 3.98 H Est GFR ( Amer) 19 L Glucose 67 L Lactic Acid Calcium 8.0 L Total Bilirubin 0.8 GGT 50 AST 78 H Alkaline Phosphatase 99 Ammonia Total Protein 5.7 L Albumin 2.9 L 04/13/20 04:43 WBC RBC Hgb Hct MCV MCH MCHC RDW Plt Count Seg Neutrophils % Carbonic Acid HCO3/H2CO3 Ratio ABG pH ABG pCO2 ABG pO2 ABG HCO3 ABG O2 Saturation ABG Base Excess FiO2 Sodium Potassium Chloride Carbon Dioxide Anion Gap BUN Creatinine Est GFR ( Amer) Glucose Lactic Acid 0.9 Calcium Total Bilirubin GGT AST Alkaline Phosphatase Ammonia Total Protein Albumin 04/11/20 04/11/20 04/11/20 01:02 01:02 15:35 Creatine Kinase 743 H CK-MB (CK-2) 2.41 Troponin I 0.077 0.261 04/13/20 04/13/20 04:43 04:43 Creatine Kinase 540 H CK-MB (CK-2) Troponin I 0.126 Impressions: Foot X-Ray 04/09/20 20:34 IMPRESSION: Findings are consistent with osteomyelitis involving the lateral aspect of the fifth metatarsal base. Associated underlying pathologic fracture deformity. Superimposed foci of soft tissue gas at this site could indicate infection with a gas-forming organism. copyright 2010 [employer]- All Rights Reserved Abdomen/Pelvis CT 04/11/20 00:00 IMPRESSION: NO SIGNIFICANT OR ACUTE PROCESS IN THE ABDOMEN OR PELVIS. Chest CT 04/11/20 00:00 IMPRESSION: MILD CARDIOMEGALY. BILATERAL PLEURAL EFFUSIONS WITH FAINT ATELEC TASIS. NO LOBAR INFILTRATES. Head CT 04/11/20 00:00 IMPRESSION: NORMAL BRAIN CT WITHOUT CONTRAST. EVIDENCE OF ACUTE STROKE: NO. All labs, radiographs, diagnostic studies and EKGs were personally reviewed: Yes In addition, reports of radiographic and diagnostic studies were read: Yes Assessment and Plan - Diagnosis (1) Cardiopulmonary arrest with successful resuscitation Is this a current diagnosis for this admission?: Yes (2) Brain anoxic injury Is this a current diagnosis for this admission?: Yes (3) Coma Qualifiers: Coma depth: [place] coma 3-8 Coma timin hours or more after hospital admission Qualified Code(s): R40.2434 - [place] coma scale score 3-8, 24 hours or more after hospital admission Is this a current diagnosis for this admission?: Yes (4) Myoclonia epileptica Is this a current diagnosis for this admission?: Yes (5) Acute on chronic renal failure Qualifiers: Acute renal failure type: with acute tubular necrosis Chronic kidney dise ase stage: stage 4 (severe) Qualified Code(s): N17.0 - Acute kidney failure with tubular necrosis; N18.4 - Chronic kidney disease, stage 4 (severe) Is this a current diagnosis for this admission?: Yes (6) Metabolic acidosis Is this a current diagnosis for this admission?: Yes (7) Acute respiratory failure with hypoxia and hypercapnia Is this a current diagnosis for this admission?: Yes Plan Summary: 04.13.2020: Respiratory: Patient still unable to tolerate liberation from mechanical ventilation until his neurological status has improved. He has had significant dental injury from teeth clenching and his tongue is swollen as a result of this. We will need to assure that this is proved before safe removal of the ET tube. Chest x-ray shows ET tube to be very high in the airway and this is been adjusted downwards. Infectious: Antibiotics have been adjudicated to support the ongoing infection bloodstream and wound. Adjustments to protect from further renal dysfunction. Repeat blood cultures and continue antibiotics as noted. Surgery is recommending removal of the lower aspect of the leg however this is pending his neurological status. Cardiac: Patient has occasional PVCs noted on monitor and on EEG. Will continue to monitor very closely. Our concern overall is that he had an arrhythmia which may have precipitated these events. We will monitor amount of PVCs and consider beta-daryn therapy if needed. Awaiting echocardiogram report Hematologic: Patient has active bloodstream infection continue to monitor and follow. Endocrine: Supportive care for glucose. Renal: Renal function has improved slightly with IV fluids. He does have generalized edema which may be suggestive of infection. Continue to monitor accordingly. IV fluids changed to LR. Metabolic: Continue to monitor electrolytes. Alimentary: Start tube feedings. Neurologic: Patient has a burst suppression pattern on EEG. This is somewhat discouraging in that it may represent significant brain anoxia. However that being said he is suppressed with Depakote and propofol. Will attempt to wean propofol and placed on Precedex in order to obtain a better neurological exam. I am somewhat encouraged by the patient's eye opening with stimulus and hope that this represents a suggestive improvement. Continue Depakote at current rate. Continue to follow neurological exam. We will consider the use of L-dopa and/or Ritalin to help improve brain function however will need to continue to monitor cardiac function and await echo. Sedation: As noted above changing to Precedex and continue on Depakote. Follow ammonia level Lines/Tubes: Day 3 central venous catheter and arterial catheter Other: Will update by phone 5.25.2020: Respiratory: Patient appears to have had a respiratory arrest which led to a cardiac arrest. Given the nursing notes this is a workable hypothesis. At this point he is unable to be liberated from the mechanical ventilation secondary to his neurological status and his respiratory decline on pressure support. We will be certain to monitor for aspiration pneumonitis. Possibility of hypercarbia which ensued during the night in the face of infection is plausible but not distinct Infectious: Has strep anginosis in blood stream and with Pseudomonas aeruginosa, Staphylococcus aureus and and Aerococcus which is a Peptostreptococcus species as well as Bacteroides in foot wound. This is a mixed aerobic and anaerobic multi-bacterial infection. Patient is on appropriate antibiotics. These antibiotics do not appear to have caused this cardiac process however one needs to be mindful with the possibility of endocarditis with a strep species. Have ordered a formal echo to evaluate both cardiac function and to evaluate valves. Cardiac: I am extremely hard pressed to determine the exact etiology for this patient's cardiopulmonary arrest. It would appear to be, and certainly convenient to assume this was a pure respiratory arrest leading to cardiac arrest. EKG was unremarkable except for mild ST segment depression and repolarization changes. The existence of an arrhythmia would need to be considered. Troponins have been on remarkable. I have ordered an echocardiogram. We will continue to monitor and follow. His vasopressor needs have now ceased and he is not in cardiogenic shock. Hematologic: Patient has active bloodstream infection. Chronic anemia exist from CKD 4 but does not require any blood products. Repeat blood cultures in the morning . Endocrine: Patient has type 2 diabetes which has been poorly controlled. Continue to monitor and supplement as needed. Renal: Patient has acute on chronic renal failure with CKD 4. Patient's will need to be adjusted aced on his GFR. No morphine or medications with prolonged metabolic profile should be used. Metabolic: Patient had been on bicarbonate drip because of his acidosis. His pH is significantly elevated and this was stopped 24 hours ago. Adjusted ventilator to improve. Will follow up with repeat analysis. Monitor electrolytes and treat supportively Alimentary: No active GI issues. Will initiate nutrition in the next 24 hours. Had mild elevation in LFTs. We will continue to follow. This may represent muscle as well. We will follow-up with repeat CK and LFTs Neurologic: Patient appears to have myoclonic movement and have started Depakote. This appears to have improved. Seizures are seen. Have ordered EEG. And appears to have an anoxic brain injury. CT scan shows no acute changes of the brain. Continue to monitor and support based on response to Depakote. Check ammonia level and Depakote level in the morning. Sedation: Plan will be to wean propofol in the morning as long as seizures and and/or myoclonic changes are not present. Will transition to either Precedex or no sedation depending on patient's presentation. Lines/Tubes: Patient has central line placed 04/11/2020 today is day 2 arterial line placed on the same day day 2 Critical Time Critical Time (minutes): 60 Level of Care: ICU -: 1. The care of a critical patient is a dynamic process. This note is a traveling sales representative synopsis but static in nature. The timeframe for treatments given in order is not necessarily the actual time these treatments may have been done. 2. This patient requires critical care secondary to ongoing requirements for therapy not offered or safe outside the critical care environment. Transfer to a lower level of care will result in altered life or limb morbidity and mortality. 3. Multidisciplinary rounds completed. 4. ABCDE bundle addressed.
[2020-04-13] MEDS: ATORVASTATIN CALCIUM 40 MG TABLET NG SCH (20:13)
--- NOTE | 2020-04-13 20:19 | RADIOLOGY REPORT (SQ) ---
EXAM DESCRIPTION: XR CHEST 1 VIEW COMPLETED DATE/TME: 04/13/2020 00:00 CLINICAL HISTORY: tube placement COMPARISON: None FINDINGS: There is an endotracheal tube with the tip ending approximately 5.3 cm above the level of the ernesto. There is a NG tube which courses subdiaphragmatically. There is a right central venous catheter with the tip ending at the atrial caval junction. EKG leads project over the chest. Cardiac silhouette is enlarged which could be secondary to cardiomegaly. Aorta is tortuous. There is no pneumothorax. There is no evidence of jonah pulmonary edema. IMPRESSION: No pneumothorax. The right central venous catheter ends at the atrial caval junction.
[2020-04-13] MEDS: INSULIN GLARGINE,HUM.REC.ANLOG 1,000 UNIT/10 ML VIAL SUBCUT SCH (21:58)
[2020-04-14] MEDS: MEROPENEM 500 MG in NORMAL SALINE 50 ML IV SCH ×2 (00:02→12:42)
[2020-04-14] MEDS: VALPROATE SODIUM 500 MG in NORMAL SALINE 100 ML IV SCH ×3 (02:11→17:53)
[2020-04-14] MEDS: DEXTROSE 5%-1/2 NORMAL SALINE 1,000 ML IV PRN ×2 (02:12→12:42)
[2020-04-14] MEDS ORDERED: FENTANYL CITRATE INJ/PF 100 MCG/2 ML AMPUL ONE (03:03)
[2020-04-14] MEDS ORDERED: FENTANYL CITRATE INJ/PF 100 MCG/2 ML AMPUL IV ONE (03:57)
[2020-04-14 04:34] LABS: ARTERIAL BLOOD BASE EXCESS -2.8 mmol/L; ARTERIAL BLOOD HCO3 20.5 mmol/L (20-24); ARTERIAL BLOOD O2 SATURATION 94.6 % (94-98); ARTERIAL BLOOD PH 7.45 (7.35-7.45); ARTERIAL BLOOD PO2 67.7 mmHg (80-100); ARTERIAL BLOOD TOTAL CO2 21.4 mmol/L (23-27)
[2020-04-14 04:35] LABS: HEMATOCRIT 22.7 % (37.9-51.0); MEAN CORPUSCULAR HEMOGLOBIN 26.2 pg (27.0-33.4); MEAN CORPUSCULAR VOLUME 79 fl (80-97); PLATELET COUNT 346 10^3/uL (150-450); RED BLOOD COUNT 2.86 10^6/uL (4.35-5.55); RED CELL DISTRIBUTION WIDTH 15.1 % (11.5-14.0); WHITE BLOOD COUNT 12.1 10^3/uL (4.0-10.5)
[2020-04-14 04:36] LABS: ARTERIAL BLOOD FIO2 35%
[2020-04-14 04:42] LABS: HEMOGLOBIN 7.5 g/dL (13.5-17.0)
[2020-04-14 04:48] LABS: ALBUMIN 2.5 g/dL (3.5-5.0); ALKALINE PHOSPHATASE 79 U/L (38-126); ANION GAP 10 (5-19); ASPARTATE AMINO TRANSFERASE 98 U/L (17-59); BILIRUBIN,DIRECT 0.1 mg/dL (0.0-0.4); BILIRUBIN,TOTAL 0.5 mg/dL (0.2-1.3); BLOOD UREA NITROGEN 36 mg/dL (7-20); CALCIUM 7.5 mg/dL (8.4-10.2); CARBON DIOXIDE 21 mmol/L (22-30); CHLORIDE 108 mmol/L (98-107); GLUCOSE 172 mg/dL (75-110); PHOSPHORUS 5.3 mg/dL (2.5-4.5); POTASSIUM 4.2 mmol/L (3.6-5.0); TOTAL PROTEIN 5.2 g/dL (6.3-8.2)
[2020-04-14 05:01] LABS: ABSOLUTE LYMPHOCYTES# (MANUAL) 1.7 10^3/uL (0.5-4.7); ABSOLUTE MONOCYTES # (MANUAL) 0.8 10^3/uL (0.1-1.4); ANISOCYTOSIS SLIGHT; BASOPHILS % (MANUAL) 1 % (0-2); EOSINOPHILS % (MANUAL) 1 % (0-6); LYMPHOCYTES % (MANUAL) 14 % (13-45); MONOCYTES % (MANUAL) 7 % (3-13); SEGMENTED NEUTROPHILS % (MAN) 77 % (42-78); TOTAL CELLS COUNTED 100
[2020-04-14 05:03] LABS: HYPOCHROMASIA SLIGHT; PLATELET COMMENT ADEQUATE
[2020-04-14] MEDS: INSULIN REG, HUMAN 100 UNIT/ML 3 ML VIAL (PYX) SUBCUT SCH ×4 (05:36→22:49)
[2020-04-14] MEDS: HEPARIN SOD (PORCINE) 5,000 UNIT/ML 1 ML VIAL SUBCUT SCH ×3 (05:36→22:25)
[2020-04-14] MEDS: LABETALOL HCL INJ 20 MG/4 ML DISP.SYRIN IV PRN ×3 (06:02→20:45)
[2020-04-14] MEDS: ACETAMINOPHEN 325 MG TABLET NG PRN (06:18)
[2020-04-14] MEDS: IPRATROPIUM/ALBUTEROL 0.5-2.5 MG/3 ML AMPUL NEB PRN (08:02)
--- NOTE | 2020-04-14 08:51 | RADIOLOGY REPORT (SQ) ---
EXAM DESCRIPTION: CHEST SINGLE VIEW IMAGES COMPLETED DATE/TIME: 04/14/2020 6:14 am REASON FOR STUDY: aspiration COMPARISON: AP view of the chest from 04/13/2020. EXAM PARAMETERS: NUMBER OF VIEWS: One view. TECHNIQUE: An AP view of the chest was obtained. RADIATION DOSE: NA LIMITATIONS: None. FINDINGS: LUNGS AND PLEURA: The costophrenic sulci remain blunted. The opacities in the left retroc ardiac space are unchanged. There is no pneumothorax. MEDIASTINUM AND HILAR STRUCTURES: Stable mediastinal and hilar contours. HEART AND VASCULAR STRUCTURES: Stable cardiac silhouette. BONES: No acute findings. HARDWARE: The tip of the endotracheal tube projects 6.1 cm above the ernesto. The tip of the enteric tube projects within the gastric lumen. The tip of the right IJ central venous catheter projects wit hin the SVC. OTHER: No other finding. IMPRESSION: Unchanged radiographic appearance of the chest. TECHNICAL DOCUMENTATION: JOB ID: [id number] 2010 [employer]- All Rights Reserved Reading location - IP/workstation name: [email or web address]
[2020-04-14] MEDS: DEXMEDETOMIDINE IN 0.9 % NACL 400 MCG/100 ML RTUPB IV PRN (08:56)
[2020-04-14] MEDS: PANTOPRAZOLE SODIUM 40 MG VIAL IV SCH (10:13)
[2020-04-14] MEDS: HYDRALAZINE HCL INJ/PF 20 MG/1 ML SDV IV PRN ×2 (10:14→17:51)
[2020-04-14] MEDS: ATORVASTATIN CALCIUM 40 MG TABLET NG SCH (10:16)
[2020-04-14] MEDS: ASPIRIN 81 MG TABLET, ENT COATED PO SCH (10:16)
--- NOTE | 2020-04-14 10:53 | PDOC PROGRESS REPORT ---
Subjective Reason For Visit: RIGHT FOOT GAS GANGRENE,DIABETES,CKD Physical Exam Vital Signs: Temp Pulse Resp BP Pulse Ox 101.8 F H 91 24 H 140/61 H 98 04/14/20 07:11 04/14/20 08:02 04/14/20 08:02 04/13/20 18:00 04/14/20 08:02 Intake & Output 04/13/20 04/14/20 04/15/20 06:59 06:59 06:59 Intake Total 1443 2847 71 Output Total 515 1515 135 Balance 928 1332 -64 Weight 85.5 kg 89.4 kg Results Laboratory Results: 04/14/20 04:15 04/14/20 04:15 04/14/20 04/14/20 04/14/20 04:15 04:15 04:15 WBC 12.1 H RBC 2.86 L Hgb 7.5 L Hct 22.7 L MCV 79 L MCH 26.2 L MCHC 33.0 RDW 15.1 H Plt Count 346 Seg Neutrophils % Not Reportable Carbonic Acid 0.90 L HCO3/H2CO3 Ratio 22:1 ABG pH 7.45 ABG pCO2 30.0 L ABG pO2 67.7 L ABG HCO3 20.5 ABG O2 Saturation 94.6 ABG Base Excess -2.8 FiO2 35% Sodium 138.7 Potassium 4.2 Chloride 108 H Carbon Dioxide 21 L Anion Gap 10 BUN 36 H Creatinine 3.66 H Est GFR ( Amer) 21 L Glucose 172 H Calcium 7.5 L Phosphorus 5.3 H Magnesium 2.2 Total Bilirubin 0.5 AST 98 H Alkaline Phosphatase 79 Total Protein 5.2 L Albumin 2.5 L 04/11/20 04/11/20 04/11/20 01:02 01:02 15:35 Creatine Kinase 743 H CK-MB (CK-2) 2.41 Troponin I 0.077 0.261 04/13/20 04/13/20 04:43 04:43 Creatine Kinase 540 H CK-MB (CK-2) Troponin I 0.126 Impressions: Foot X-Ray 04/09/20 20:34 IMPRESSION: Findings are consistent with osteomyelitis involving the lateral aspect of the fifth metatarsal base. Associated underlying pathologic fracture deformity. Superimposed foci of soft tissue gas at this site could indicate infection with a gas-forming organism. copyright 2011 [employer]- All Rights Reserved Abdomen/Pelvis CT 04/11/20 00:00 IMPRESSION: NO SIGNIFICANT OR ACUTE PROCESS IN THE ABDOMEN OR PELVIS. Chest CT 04/11/20 00:00 IMPRESSION: MILD CARDIOMEGALY. BILATERAL PLEURAL EFFUSIONS WITH FAINT ATELECTASIS. NO LOBAR INFILTRATES. Head CT 04/11/20 00:00 IMPRESSION: NORMAL BRAIN CT WITHOUT CONTRAST. EVIDENCE OF ACUTE STROKE: NO. Chest X-Ray 04/14/20 06:00 IMPRESSION: Unchanged radiographic appearance of the chest. Assessment & Plan - Diagnosis (1) Diabetic infection of right foot Is this a current diagnosis for this admission?: Yes (2) Osteomyelitis Qualifiers: Osteomyelitis type: unspecified type Osteomyelitis location: foot Laterality: right Qualified Code(s): M86.9 - Osteomyelitis, unspecified Is this a current diagnosis for this admission?: Yes - Plan Summary Plan Summary: 59 y/o M with severe diabetic foot infection, s/p I&D. He subsequently suffered cardiopulmonary arrest on the floor (of unknown etiology). He is now intubated, and on the vent. I have examined his foot today. His foot is stable in appearance. Babar drains remain in place. Cont abx. The pt will require further surgery to completely treat his infection, as long as his mental status improves. Currently, the patient displays no purposful movements or responses. He cannot follow commands. He does withdraw to pain. Pattern Stamper is managing the vent and other medical issues at this time. Once the patient has evidence of improved brain function, definitive surgery for his foot would be more appropriate. Until that time, surgery will follow peripherally. Please renotify if further surgical intervention is appropriate.
[2020-04-14] MEDS: FENTANYL CITRATE INJ/PF 100 MCG/2 ML AMPUL IV PRN ×2 (18:58→23:01)
[2020-04-14] MEDS: AMLODIPINE BESYLATE 5 MG TABLET PO SCH (19:01)
--- NOTE | 2020-04-14 20:01 | PDOC CRITICAL CARE PROG REPORT ---
General Date:: 04/14/20 ICU Day:: 4 Ventilator Day:: 4 Hospital Day:: 4 Resuscitation Status: Full Code Medical Power of Swat Team Member: Amber Events in the past 12 to 24 Hours:: 04.14.2020: Patient has had no further myoclonic movements on Depakote. He has been transitioned to Precedex. He has had intermittent hypertensive episodes that have not been associated with nystagmus. Last evening he developed what appeared to be acute respiratory compromise and was noted to have significant mu cus obstruction of his ET tube. This was quickly recognized by the nighttime critical care team and remedied with suction. His blood pressures have been somewhat labile but not severe they have been treated with PRN antihypertensives. He has had no demonstrable improvement in neurological function other than he has stronger eye opening times has spontaneous eye opening. 04.13.2020: Patient's myoclonic movements have dramatically decreased and occur only occasionally. He opens his eyes today with voice but is not always consistent. Urine output has been low and IV fluids were started with improvement. 04.12.2020: Patient has remained comatose and required propofol secondary to excessive teeth clenching while on the ventilator. This caused dental trauma to the lower dental ridge while the patient was intubated. He was noted to have m yoclonic movements today and he was started on Depakote. After repeat examinations these have improved with the concurrent use of propofol and Depakote. Extensive review of the reason for the patient's respiratory arrest was done. There was no sedate of medications given. The states that he was well and perfectly fine at 9 PM the night before the event occurred. Review of the nursing notes they noted bradycardia and coughing. Unfortunately, his creatinine prevented a CT scan to rule out PE. Initially hypotensive, he is now improved and off vasopressor therapy. Review of systems relevant to events:: 04.14.2020: Vitals were reviewed. He had temperature elevation as high as 101.8 at 7:00 this morning. There is been no hypotension. Echocardiogram has been done. Official reading is still pending. Review of it unofficially shows what appears to be a slight reduction in EF on some of the imaging. No pericardial effusion was seen. Right ventricle is not enlarged. 04.13.2020: No active seizures noted. EEG ongoing during examination. PEEP reduced to 5. No further respiratory distress. 04.12.2020: states that patient sleeps in a chair at night upright. She does endorse that he snores but does not know if he has sleep apnea because she does not sleep with him physically. She does not know if he is ever been told he has sleep apnea. Review of medications and antibiotics does not show any medications which would have led to arrhythmias. Reason for ICU Addmission:: Post respiratorycardiac arrest - Medications: Vasopressors:: None Sedation:: Depakote. Precedex has been discontinued on rounds Physical Exam Vital Signs: Temp Pulse Resp BP Pulse Ox 97.9 F 91 28 H 140/61 H 100 04/14/20 12:00 04/14/20 08:02 04/14/20 15:00 04/13/20 18:00 04/14/20 16:13 Intake & Output 04/13/20 04/14/20 04/15/20 06:59 06:59 06:59 Intake Total 1443 2847 1569 Output Total 515 1515 790 Balance 928 1332 779 Weight 85.5 kg 89.4 kg Weight/Height Weight 89.4 kg Height 6 ft General appearance: PRESENT: no acute distress, well-developed, well-nourished Exam: Older appearing 59-year-old black male intubated no acute distress comatose unresponsive except for eye opening Head exam: PRESENT: atraumatic, normocephalic Eye exam: PRESENT: conjunctiva pink, PERRLA. ABSENT: conjunctival injection, nystagmus, scleral icterus Mouth exam: PRESENT: moist, tongue midline Teeth exam: PRESENT: poor dentation, other - Traumatic movement of lower teeth with alveolar disruption. No active bleeding. Tongue abrasion is improved and swelling has improved Neck exam: PRESENT: other - Right IJ central venous catheter clean dry intact no erythema. ABSENT: carotid bruit, JVD, lymphadenopathy, meningismus, thyromegaly, tracheal deviation Respiratory exam: PRESENT: clear to auscultation king. ABSENT: accessory muscle use, rales, rhonchi, wheezes Cardiovascular exam: PRESENT: RRR, +S1, +S2 Vascular exam: PRESENT: normal capillary refill GI/Abdominal exam: PRESENT: normal bowel sounds, soft. 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 Evaluation of right foot shows packing intact. There is no excessive purulence. Drains are appropriate and intact. There is no erythema. No pulses palpated but there is no ischemia. Neurological exam: PRESENT: altered, other - Patient's eyes have spontaneous opening and have slight gaze to the left at times. There is no nystagmus. Corneal reflex is intact. He appears to have a pain response to change in foot dressing with hypertension during exam. He has intact respiratory drive. There is no movement with noxious stimulus other than the eye opening. Lefty Coma Scale is 4-1T-1. Laboratory/Radiographs Laboratory Results: 04/14/20 04:15 04/14/20 04:15 04/14/20 04/14/20 04/14/20 04:15 04:15 04:15 WBC 12.1 H RBC 2.86 L Hgb 7.5 L Hct 22.7 L MCV 79 L MCH 26.2 L MCHC 33.0 RDW 15.1 H Plt Count 346 Seg Neutrophils % Not Reportable Carbonic Acid 0.90 L HCO3/H2CO3 Ratio 22:1 ABG pH 7.45 ABG pCO2 30.0 L ABG pO2 67.7 L ABG HCO3 20.5 ABG O2 Saturation 94.6 ABG Base Excess -2.8 FiO2 35% Sodium 138.7 Potassium 4.2 Chloride 108 H Carbon Dioxide 21 L Anion Gap 10 BUN 36 H Creatinine 3.66 H Est GFR ( Amer) 21 L Glucose 172 H Calcium 7.5 L Phosphorus 5.3 H Magnesium 2.2 Total Bilirubin 0.5 AST 98 H Alkaline Phosphatase 79 Total Protein 5.2 L Albumin 2.5 L 04/11/20 04/11/20 04/11/20 01:02 01:02 15:35 Creatine Kinase 743 H CK-MB (CK-2) 2.41 Troponin I 0.077 0.261 04/13/20 04/13/20 04:43 04:43 Creatine Kinase 540 H CK-MB (CK-2) Troponin I 0.126 Impressions: Foot X-Ray 04/09/20 20:34 IMPRESSION: Findings are consistent with osteomyelitis involving the lateral aspect of the fifth metatarsal base. Associated underlying pathologic fracture deformity. Superimposed foci of soft tissue gas at this site could indicate infection with a gas-forming organism. copyright 2010 [employer]- All Rights Reserved Abdomen/Pelvis CT 04/11/20 00:00 IMPRESSION: NO SIGNIFICANT OR ACUTE PROCESS IN THE ABDOMEN OR PELVIS. Chest CT 04/11/20 00:00 IMPRESSION: MILD CARDIOMEGALY. BILATERAL PLEURAL EFFUSIONS WITH FAINT ATELECTASIS. NO LOBAR INFILTRATES. Head CT 04/11/20 00:00 IMPRESSION: NORMAL BRAIN CT WITHOUT CONTRAST. EVIDENCE OF ACUTE STROKE: NO. Chest X-Ray 04/14/20 06:00 IMPRESSION: Unchanged radiographic appearance of the chest. All labs, radiographs, diagnostic studies and EKGs were personally reviewed: Yes In addition, reports of radiographic and diagnostic studies were read: Yes Assessment and Plan - Diagnosis (1) Cardiopulmonary arrest with successful resuscitation Is this a current diagnosis for this admission?: Yes (2) Brain anoxic injury Is this a current diagnosis for this admission?: Yes (3) Coma Qualifiers: Coma depth: [place] coma 3-8 Coma timin hours or more after hospital admission Qualified Code(s): R40.2434 - [place] coma scale score 3-8, 24 hours or more after hospital admission Is this a current diagnosis for this admission?: Yes (4) Myoclonia epileptica Is this a current diagnosis for this admission?: Yes (5) Acute on chronic renal failure Qualifiers: Acute renal failure type: with acute tubular necrosis Chronic kidney disease stage: stage 4 (severe) Qualified Code(s): N17.0 - Acute kidney failure with tubular necrosis; N18.4 - Chronic kidney disease, stage 4 (severe) Is this a current diagnosis for this admission?: Yes (6) Metabolic acidosis Is this a current diagnosis for this admission?: Yes (7) Acute respiratory failure with hypoxia and hypercapnia Is this a current diagnosis for this admission?: Yes Plan Summary: 04.14.2020: Respiratory: [Patient appears to have had some ventilator dyssynchrony and has been placed on pressure support. Will need to be vigilant to watch for atelectasis and mucous obstruction. Have increased his PEEP to 10. This may herald an encouraging sign that the patient brain function may be improving. Unable to liberate from mechanical ventilation secondary to neuro dysfunction. He also has a slightly enlarged tongue and this will need to be reduced and swelling for safe extubation. Continue to watch for atelectasis and aspiration pneumonitis] Infectious: Patient has had patient and his temperature and is required accordingly. We have changed his antibiotics to meropenem to better cover Ps eudomonas and the multi-spectrum bacteria in foot wound and strep in his blood. I am encouraged that his white count has improved as well. This fever may be care support representative of neuro dysfunction related fever but again will need to control. Have ordered procalcitonin but latency in the delivery of results precludes timely evaluation for de-escalation of antibiotics and/or change in therapy. Although meropenem is not always a helpful drug in concern for seizures. He does not have any active seizures and he is on Depakote. The use of Levaquin would be discouraged because of EKG, arrhythmia and other unwelcome sequelae. Will be mindful to watch for any change in his neuro status on the meropenem. Cardiac: His echocardiogram shows mild dysfunction on our wet read. Will wait for formal evaluation. His blood pressure has been an issue and seems to be symptomatically related to examination and redressing his wound. I have written for fentanyl to be used for systolic blood pressure greater than 160 and/or any procedures causing pain. Although the exact blood pressure for this situation is not known we have tried to limit to no higher than 160 mmHg. Have added Norvasc and adjusted his hydralazine. Hematologic: No active hematologic issues. Will screen for DVT in the right leg . Endocrine: Glucose has been elevated and have transitioned him to twice daily Lantus. He had been on 12 units once a day and I have transitioned him to 8 units twice a day for slight incremental increase. Continue on supplemental coverage of short acting insulin as needed. Renal: Patient's renal dysfunction continues to be increased. He did respond to IV fluids and will continue to monitor continued response to this. Adjust medications for GFR. Metabolic: Patient has slightly elevated phosphorus we will continue to monitor accordingly. He has a slight metabolic acidosis which does not require treatment at this time. Most likely related to renal failure Alimentary: Patient will be started on L-dopa to help stimulate neuro function. Because of this he will need to have his tube feeds held at 06 100 every morning until 10:00. Will adjust nutritional elements to support full and adequate calories. Will ask nutrition to offer opinion as well. Neurologic: I am suddenly encouraged that the patient spontaneous eye opening. In neuro populations it has been found, anecdotally, that the institution of neuro stimulating drugs such as L-dopa at 100 mg a day as well as Ritalin or other neuro stimulant agents are. Given that this patient's neuro status is deplorable, this may be the only medication which will help gain some neurological function. Will need to be watchful of his blood pressure and I have started at a lower dose of Ritalin. Please see discussion under other regarding goals regarding his neurological care Sedation: Precedex to be discontinued. We will continue Depakote. We will check levels and follow ammonia Lines/Tubes: Patient has central line placed today is day 3 Other: Had a lengthy discussion with his Amber by phone. Because of the pandemic she has not been able to be at bedside for the last 2 days. We discussed his prognosis and the possibility that he does not have a true neurological outcome. We have offered discontinuation of care as a reasonable alternative if she feels that this would be in his best interest for his wish. She is not willing to pursue this at this time and we are supportive of this decision. She is in agreement with starting some neuro stimulation therapy. We also discussed the possibility of early tracheostomy to be somewhat problematic because of the need for the right foot to have either complete removal or BKA. This will need to be further considered. She has asked for more time to co erika and I have discussed that if after a week there is minimal recovery but she would want further care that we would encourage an earlier tracheostomy and PEG tube than later. Have ordered repeat CT scan of the brain to evaluate for any ischemic changes and have ordered an ultrasound of the lower extremity as well DVT. 04.13.2020: Respiratory: Patient still unable to tolerate liberation from mechanical ventilation until his neurological status has improved. He has had significant dental injury from teeth clenching and his tongue is swollen as a result of this. We will need to assure that this is proved before safe removal of the ET tube. Chest x-ray shows ET tube to be very high in the airway and this is been adjusted downwards. Infectious: Antibiotics have been adjudicated to support the ongoing infection bloodstream and wound. Adjustments to protect from further renal dysfunction. Repeat blood cultures and continue antibiotics as noted. Surgery is recommendin g removal of the lower aspect of the leg however this is pending his neurological status. Cardiac: Patient has occasional PVCs noted on monitor and on EEG. Will continue to monitor very closely. Our concern overall is that he had an arrhythmia which may have precipitated these events. We will monitor amount of PVCs and consider beta-daryn therapy if needed. Awaiting echocardiogram report Hematologic: Patient has active bloodstream infection continue to monitor and follow. Endocrine: Supportive care for glucose. Renal: Renal function has improved slightly with IV fluids. He does have generalized edema which may be suggestive of infection. Continue to monitor accordingly. IV fluids changed to LR. Metabolic: Continue to monitor electrolytes. Alimentary: Start tube feedings. Neurologic: Patient has a burst suppression pattern on EEG. This is somewhat discouraging in that it may represent significant brain anoxia. However that being said he is suppressed with Depakote and propofol. Will attempt to wean propofol and placed on Precedex in order to obtain a better neurological exam. I am somewhat encouraged by the patient's eye opening with stimulus and hope that this represents a suggestive improvement. Continue Depakote at current rate. Continue to follow neurological exam. We will consider the use of L-dopa and/or Ritalin to help improve brain function however will need to continue to monitor cardiac function and await echo. Sedation: As noted above changing to Precedex and continue on Depakote. Follow ammonia level Lines/Tubes: Day 3 central venous catheter and arterial catheter Other: Will update by phone Critical Time Critical Time (minutes): 60 Level of Care: ICU -: 1. The care of a critical patient is a dynamic process. This note is a care support representative synopsis but static in nature. The timeframe for treatments given in order is not necessarily the actual time these treatments may have been done. 2. This patient requires critical care secondary to ongoing requirements for therapy not offered or safe outside the critical care environment. Transfer to a lower level of care will result in altered life or limb morbidity and mortality. 3. Multidisciplinary rounds completed. 4. ABCDE bundle addressed.
--- NOTE | 2020-04-14 22:03 | RADIOLOGY REPORT (SQ) ---
EXAM DESCRIPTION: US EXTREMITY VEINS UNILATERAL COMPLETED DATE/TME: 04/14/2020 8:19 PM CLINICAL HISTORY: swelling COMPARISON: None Available TECHNIQUE: Grayscale, color Doppler, and Doppler interrogation images of the common femoral vein, superficial femoral vein, popliteal, and posterior tibial veins of the right lower extremity were submitted FINDINGS: All of the above-mentioned venous structures demonstrate normal spontaneous flow with respiratory phasicity and were fully compressible. There is subcutaneous edema. IMPRESSION: No sonographic evidence of acute DVT within the right lower extremity. Subcutaneous edema.
[2020-04-14] MEDS ORDERED: 1/2 NORMAL SALINE 1,000 ML IV PRN (22:10)
[2020-04-14] MEDS: INSULIN GLARGINE,HUM.REC.ANLOG 1,000 UNIT/10 ML VIAL SUBCUT SCH (22:25)
[2020-04-14] MEDS ORDERED: LABETALOL HCL INJ 20 MG/4 ML DISP.SYRIN IV ONE (23:13)
--- NOTE | 2020-04-15 00:13 | XCELERA REPORT ---
[address] [address] Transthoracic Echocardiogram Report Name: MARYAMVITO PERALES JR Age: 59 yrs Gender: Male : 1960 Patient Status: Inpatient Patient Location: ICU^608^A Study Date: 04/14/2020 08:34 AM Height: 72 in Weight: 188 lb BSA: 2.1 m2 Procedure: A two-dimensional transthoracic echocardiogram with color flow and Doppler was performed. Study Quality: Fair. Reason For Study: cardiac arrest History: cardiac arrest. Ordering Physician: JOSE ARMANDO MARCUS Performed By: Miya Hernandez Interpretation Summary The left ventricle is borderline dilated. There is normal left ventricular wall thickness. LV EF is 40% to 45% Left ventricular systolic function is moderately reduced. Doppler measurements suggest impaired left ventricular relaxation, which is associated with grade I/IV or mild diastolic dysfunction There is moderate global hypokinesis of the left ventricle. There is no thrombus. No ASD ,VSD , or PFO seen. The right ventricle is normal in size and function. The right atrium is normal. The left atrial size is normal. There is mild mitral leaflet calcification. There is no evidence of mitral valve prolapse. There is no vegetation seen on the mitral valve. There is no mitral valve stenosis. There is a trace amount of mitral regurgitation There is no aortic valvular vegetation. There is no aortic valve stenosis There is no LVOT obstruction. There is aortic sclerosis without aortic stenosis. No aortic regurgitation is present. There is no tricuspid stenosis. There is a trace amount of tricuspid regurgitation Normal RVSP due to mild pulmonary hypertension.RVSP is 28 to 333 mm of Hg , with RA mean of 15 to 20. There is no pulmonic valvular stenosis. There is a trace amount of pulmonic regurgitation The aortic root is normal size. The inferior vena cava appeared dilated and decreased < 50% with respiration (RAP 15-20 mmHg) There is no pericardial effusion. MMode/2D Measurements & Calculations RVDd: 1.9 cm LVIDd: 5.8 cm FS: 16.4 % EPSS: 1.2 cm IVSd: 1.0 cm LVIDs: 4.9 cm EDV(Teich): 167.6 ml LVPWd: 0.76 cm ESV(Teich): 110.6 ml EF(Teich): 34.0 % Ao root diam: 3.1 cm Ao root area: 7.5 cm2 Doppler Measurements & Calculations MV E max stew: MV dec slope: Ao V2 max: LV V1 max P.5 cm/sec 713.0 cm/sec2 120.3 cm/sec 4.4 mmHg MV A max stew: MV dec time: 0.16 secAo max PG: LV V1 max: 94.6 cm/sec 5.8 mmHg 105.3 cm/sec MV E/A: 1.2 PA V2 max: TR max stew: 121.7 cm/sec 182.7 cm/sec PA max P.9 mmHg TR max P.3 mmHg Left Ventricle The left ventricle is borderline dilated. There is normal left ventricular wall thickness. LV EF is 40% to 45%. Left ventricular systolic function is moderately reduced. Doppler measurements suggest impaired left ventricular relaxation, which is associated with grade I/IV or mild diastolic dysfunction. There is moderate global hypokinesis of the left ventricle. There is no thrombus. No ASD ,VSD , or PFO seen. Right Ventricle The right ventricle is normal in size and function. Atria The right atrium is normal. The left atrial size is normal. Mitral Valve There is mild mitral leaflet calcification. There is no evidence of mitral valve prolapse. There is no vegetation seen on the mitral valve. There is no mitral valve stenosis. There is a trace amount of mitral regurgitation. Aortic Valve There is no aortic valvular vegetation. There is no aortic valve stenosis. There is no LVOT obstruction. There is aortic sclerosis without aortic stenosis. No aortic regurgitation is present. Tricuspid Valve There is no tricuspid stenosis. There is a trace amount of tricuspid regurgitation. Normal RVSP due to mild pulmonary hypertension.RVSP is 28 to 333 mm of Hg , with RA mean of 15 to 20. Pulmonic Valve There is no pulmonic valvular stenosis. There is a trace amount of pulmonic regurgitation. Great Vessels The aortic root is normal size. The inferior vena cava appeared dilated and decreased < 50% with respiration (RAP 15-20 mmHg). Effusions There is no pericardial effusion. : JOSE ARMANDO MARCUS Lakshmi
[2020-04-15] MEDS: MEROPENEM 500 MG in NORMAL SALINE 50 ML IV SCH ×3 (00:22→23:36)
[2020-04-15] MEDS ORDERED: MORPHINE SULFATE 10 MG/ML INJ IV ONE (00:28)
[2020-04-15] MEDS: INSULIN REG, HUMAN 100 UNIT/ML 3 ML VIAL (PYX) SUBCUT SCH ×6 (01:57→21:24)
[2020-04-15] MEDS: NICARDIPINE HCL RTU, ISO-OS 20 MG/200 ML RTUINJ IV PRN ×6 (01:58→21:57)
[2020-04-15] MEDS: VALPROATE SODIUM 500 MG in NORMAL SALINE 100 ML IV SCH ×3 (01:58→17:17)
[2020-04-15 03:59] LABS: ARTERIAL BLOOD BASE EXCESS -4.5 mmol/L; ARTERIAL BLOOD H2CO3 0.71 mmol/L (1.05-1.35); ARTERIAL BLOOD HCO3 17.6 mmol/L (20-24); ARTERIAL BLOOD O2 SATURATION 97.4 % (94-98); ARTERIAL BLOOD PCO2 23.7 mmHg (35-45); ARTERIAL BLOOD PH 7.49 (7.35-7.45); ARTERIAL BLOOD PO2 86.5 mmHg (80-100); ARTERIAL BLOOD TOTAL CO2 18.3 mmol/L (23-27)
[2020-04-15 04:00] LABS: ARTERIAL BLOOD FIO2 30%
[2020-04-15 04:01] LABS: ABSOLUTE EOSINOPHILS # (AUTO) 0.1 10^3/uL (0.0-0.6); ABSOLUTE LYMPHOCYTES (AUTO) 1.2 10^3/uL (0.5-4.7); ABSOLUTE MONOCYTES (AUTO) 1.9 10^3/uL (0.1-1.4); ABSOLUTE NEUT (AUTO) 13.3 10^3/uL (1.7-8.2); BASOPHILS % (AUTO) 0.2 % (0-2); EOSINOPHILS % (AUTO) 0.6 % (0-6); HEMATOCRIT 27.1 % (37.9-51.0); LYMPHOCYTES % (AUTO) 7.4 % (13-45); MEAN CORPUSCULAR HGB CONC 33.2 g/dL (32.0-36.0); MEAN CORPUSCULAR VOLUME 78 fl (80-97); MONOCYTES % (AUTO) 11.5 % (3-13); PLATELET COUNT 449 10^3/uL (150-450); RED BLOOD COUNT 3.46 10^6/uL (4.35-5.55); RED CELL DISTRIBUTION WIDTH 15.2 % (11.5-14.0); SEGMENTED NEUTROPHILS % (AUTO) 80.3 % (42-78); TOTAL CELLS COUNTED % (AUTO) 100 %; WHITE BLOOD COUNT 16.5 10^3/uL (4.0-10.5)
[2020-04-15 04:17] LABS: ALBUMIN 2.6 g/dL (3.5-5.0); ALKALINE PHOSPHATASE 133 U/L (38-126); ANION GAP 11 (5-19); ASPARTATE AMINO TRANSFERASE 84 U/L (17-59); BILIRUBIN,DIRECT 0.3 mg/dL (0.0-0.4); BILIRUBIN,TOTAL 0.7 mg/dL (0.2-1.3); BLOOD UREA NITROGEN 32 mg/dL (7-20); CALCIUM 7.7 mg/dL (8.4-10.2); CARBON DIOXIDE 18 mmol/L (22-30); CHLORIDE 110 mmol/L (98-107); GLUCOSE 220 mg/dL (75-110); PHOSPHORUS 3.8 mg/dL (2.5-4.5); POTASSIUM 3.5 mmol/L (3.6-5.0); TOTAL PROTEIN 5.7 g/dL (6.3-8.2)
[2020-04-15] MEDS ORDERED: POTASSIUM CHLORIDE 20 MEQ PACKET NG ONE (04:40)
[2020-04-15] MEDS ORDERED: METOPROLOL TARTRATE 25 MG TABLET NG ONE (04:44)
[2020-04-15] MEDS: ACETAMINOPHEN 325 MG TABLET NG PRN ×2 (05:04→09:34)
[2020-04-15] MEDS: HEPARIN SOD (PORCINE) 5,000 UNIT/ML 1 ML VIAL SUBCUT SCH ×3 (05:05→21:30)
[2020-04-15] MEDS: AMLODIPINE BESYLATE 5 MG TABLET PO SCH ×2 (05:06→17:18)
[2020-04-15 05:52] LABS: APPEARANCE,URINE SLIGHTLY-CLOUDY; BILIRUBIN,URINE NEGATIVE (NEGATIVE); COLOR,URINE YELLOW; GLUCOSE, URINE 50 mg/dL (NEGATIVE); KETONES,URINE NEGATIVE (NEGATIVE); LEUKOCYTE ESTERASE,URINE NEGATIVE (NEGATIVE); NITRITE,URINE NEGATIVE (NEGATIVE); PROTEIN,URINE 100 mg/dL (NEGATIVE); URINE SPECIFIC GRAVITY 1.014; UROBILINOGEN,URINE NEGATIVE mg/dL (<2.0)
[2020-04-15] MEDS: FENTANYL CITRATE INJ/PF 100 MCG/2 ML AMPUL IV PRN ×2 (06:57→19:10)
[2020-04-15] MEDS ORDERED: ROCURONIUM BROMIDE INJ 50 MG/5 ML VIAL IV ONE ×2 (07:49→12:30)
--- NOTE | 2020-04-15 08:16 | RADIOLOGY REPORT (SQ) ---
EXAM DESCRIPTION: CHEST SINGLE VIEW IMAGES COMPLETED DATE/TIME: 04/15/2020 6:14 am REASON FOR STUDY: aspiration COMPARISON: 03/25/2020. EXAM PARAMETERS: NUMBER OF VIEWS: One view. TECHNIQUE: Single frontal radiographic view of the chest acquired. RADIATION DOSE: NA LIMITATIONS: None. FINDINGS: LUNGS AND PLEURA: Faint basilar densities. No pleural effusion or pneumothorax. MEDIASTINUM AND HILAR STRUCTURES: No masses. Contour normal. HEART AND VASCULAR STRUCTURES: Heart normal in size. Normal vasculature. BONES: No acute findings. HARDWARE: Endotracheal tube with the tip located approximately 6 cm proximal to the ernesto. Nasogast tomi tube with the tip in stomach. Central line with the tip below the superior vena cava. OTHER: No other significant finding. IMPRESSION: NO SIGNIFICANT CHANGE IN APPEARANCE OF THE CHEST. TECHNICAL DOCUMENTATION: JOB ID: [id number] 2010 [employer]- All Rights Reserved Reading location - IP/workstation name: [email or web address]
[2020-04-15] MEDS: CARBIDOPA/LEVODOPA 10-100 MG TABLET PO SCH (08:40)
[2020-04-15] MEDS: METHYLPHENIDATE HCL 5 MG TABLET PO SCH ×2 (08:40→12:42)
[2020-04-15] MEDS: PANTOPRAZOLE SODIUM 40 MG VIAL IV SCH (09:35)
[2020-04-15] MEDS: ASPIRIN 81 MG TABLET, ENT COATED PO SCH (09:35)
[2020-04-15] MEDS: INSULIN GLARGINE,HUM.REC.ANLOG 1,000 UNIT/10 ML VIAL SUBCUT SCH ×2 (09:35→21:32)
[2020-04-15] MEDS: ATORVASTATIN CALCIUM 40 MG TABLET NG SCH (09:35)
[2020-04-15] MEDS ORDERED: POTASSIUM CHLORIDE 20 MEQ PACKET NG SCH (10:00)
[2020-04-15] MEDS ORDERED: FENTANYL CITRATE INJ/PF 250 MCG/5 ML AMPULE IV ONE (11:13)
[2020-04-15] MEDS ORDERED: DEXMEDETOMIDINE IN 0.9 % NACL 400 MCG/100 ML RTUPB IV PRN (11:15)
[2020-04-15] MEDS ORDERED: FENTANYL CITRATE INJ/PF 100 MCG/2 ML AMPUL ONE ×2 (11:16→11:27)
[2020-04-15] MEDS ORDERED: FENTANYL CITRATE INJ/PF 100 MCG/2 ML AMPUL IV ONE (11:30)
[2020-04-15] MEDS: SCOPOLAMINE HYDROBROMIDE 1.5 MG PATCH.TD72 TD SCH (12:42)
[2020-04-15] MEDS: FUROSEMIDE INJ/PF 20 MG/2 ML SDV IV SCH ×2 (12:42→21:31)
--- NOTE | 2020-04-15 12:53 | PDOC CRITICAL CARE PROG REPORT ---
General Date:: 04/15/20 ICU Day:: 5 Ventilator Day:: 5 Hospital Day:: 5 Resuscitation Status: Full Code Medical Power of Signal System Testing Maintainer: Amber Events in the past 12 to 24 Hours:: 04.15.2020: Patient has more spontaneous eye movement today and appears to be reacting to noises and voices in the room. Still not tracking though. There has been no myoclonic movements nor active clinical seizures. EEG attempt this morning was thwarted by excessive muscular activity. This was able to be aborted by sedation and neuromuscular blockade in order to achieve EEG. He was sedated with high-dose fentanyl and Precedex during the neuromuscular blockade. His blood pressure has been labile and he was started on Cardene drip to improve this. His glucose has been elevated and he was transitioned to twice daily dosing. He was also started on L-dopa in the form of Sinemet and Ritalin this morning with tube feeds being held in accordance with nutrition requirements for Sinemet. He has not had any obstruction or mucus plugging in his ET tube. Last evening appears to have had some ventilator dyssynchrony and was been placed on pressure support. He has been placed on conventional ventilation during the ne uromuscular blockade portion for his EEG. 04.14.2020: Patient has had no further myoclonic movements on Depakote. He has been transitioned to Precedex. He has had intermittent hypertensive episodes that have not been associated with nystagmus. Last evening he developed what appeared to be acute respiratory compromise and was noted to have significant mucus obstruction of his ET tube. This was quickly recognized by the nighttime critical care team and remedied with suction. His blood pressures have been somewhat labile but not severe they have been treated with PRN antihyperten sives. He has had no demonstrable improvement in neurological function other than he has stronger eye opening times has spontaneous eye opening. 04.13.2020: Patient's myoclonic movements have dramatically decreased and occur only occasionally. He opens his eyes today with voice but is not always consistent. Urine output has been low and IV fluids were started with impro vement. 04.12.2020: Patient has remained comatose and required propofol secondary to excessive teeth clenching while on the ventilator. This caused dental trauma to the lower dental ridge while the patient was intubated. He was noted to have myoclonic movements today and he was started on Depakote. After repeat examinations these have improved with the concurrent use of propofol and Depakote. Extensive review of the reason for the patient's respiratory arrest was done. There was no sedate of medications given. The states that he was well and perfectly fine at 9 PM the night before the event occurred. Review of the nursing notes they noted bradycardia and coughing. Unfortunately, his creatinine prevented a CT scan to rule out PE. Initially hypotensive, he is now improved and off vasopressor therapy. Review of systems relevant to events:: 04.15.2020: Echocardiogram reviewed. Patient has ejection fraction of approximately 40 to 45% which is moderately reduced. Doppler measurements suggest impaired ventricular relaxation consistent with grade 1 diastolic dysfunction. There are no regional wall motion abnormalities and appears to be global dysfunction. The right ventricle was normal in size. IVC was very dilated and had no respirophasic changes. 04.14.2020: Vitals were reviewed. He had temperature elevation as high as 101.8 at 7:00 this morning. There is been no hypotension. Echocardiogram has been done. Official reading is still pending. Review of it unofficially shows what appears to be a slight reduction in EF on some of the imaging. No pericardial effusion was seen. Right ventricle is not enlarged. 04.13.2020: No active seizures noted. EEG ongoing during examination. PEEP reduced to 5. No further respiratory distress. 04.12.2020: states that patient sleeps in a chair at night upright. She does endorse that he snores but does not know if he has sleep apnea because she does not sleep with him physically. She does not know if he is ever been told he has sleep apnea. Review of medications and antibiotics does not show any medications which would have led to arrhythmias. Reason for ICU Addmission:: Post respiratorycardiac arrest - Medications: Medications reviewed and adjusted accordingly: Yes Vasopressors:: Cardene drip Sedation:: Depakote. Transient use of neuromuscular blockade with fentanyl and Precedex to facilitate EEG Physical Exam Vital Signs: Temp Pulse Resp BP Pulse Ox 101.5 F H 108 H 23 H 140/61 H 97 04/15/20 11:22 04/15/20 08:48 04/15/20 10:00 04/13/20 18:00 04/15/20 11:38 Intake & Output 04/14/20 04/15/20 04/16/20 06:59 06:59 06:59 Intake Total 2847 3245 200 Output Total 1515 1665 230 Balance 1332 1580 -30 Weight 89.4 kg 88.9 kg Weight/Height Weight 88.9 kg Height 6 ft General appearance: PRESENT: no acute distress, well-developed, well-nourished Exam: Intubated, older appearing nontoxic but ill 59-year-old black male unresponsive but has spontaneous eye opening. Head exam: PRESENT: atraumatic, normocephalic Eye exam: PRESENT: conjunctiva pink, PERRLA. ABSENT: conjunctival injection, nystagmus, scleral icterus Ear exam: PRESENT: other - Secretions noted from nose and mouth. Mouth exam: PRESENT: moist, tongue midline, other - Tongue has mild ecchymosis from previous abrasion to teeth. It is midline and swelling is much improved. He is significant secretions. Teeth exam: PRESENT: poor dentation - As reported earlier teeth have been disrupted at the lower alveolar ridge line. They are still contained within their individual sockets extremely loose. Neck exam: PRESENT: full ROM. ABSENT: carotid bruit, JVD, lymphadenopathy, meningismus, thyromegaly, tracheal deviation Respiratory exam: PRESENT: clear to auscultation king, unlabored. ABSENT: accessory muscle use, rales, rhonchi, tachypnea, wheezes Cardiovascular exam: PRESENT: RRR, +S1, +S2 Vascular exam: PRESENT: normal capillary refill. ABSENT: pallor GI/Abdominal exam: PRESENT: normal bowel sounds, soft. 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 Right foot has surgical drains ([place]) which are draining. No significant odor and minimal clear discharge. There is no exudative output noted. Neurological exam: PRESENT: altered, other - Eyes are spontaneously opening. There is some movement to voice but there is no distinct tracking. There is no nystagmus. [place] Coma Scale is 4-1T-1. Unable to perform Babinski secondary to absence of left foot and surgical dressing with Babar drain in the right f oot. He appears to have a slight left gaze preference. Skin exam: PRESENT: dry, intact, warm. ABSENT: cyanosis, pallor, petechiae, rash Tubes/Lines: PRESENT: Endotracheal Tube, Central Line - James type urinary catheter. Orogastric tube present Laboratory/Radiographs Laboratory Results: 04/15/20 03:47 04/15/20 03:47 04/15/20 04/15/20 04/15/20 03:47 03:47 03:47 WBC 16.5 H RBC 3.46 L Hgb 9.0 L Hct 27.1 L MCV 78 L MCH 26.0 L MCHC 33.2 RDW 15.2 H Plt Count 449 Seg Neutrophils % 80.3 H Carbonic Acid 0.71 L HCO3/H2CO3 Ratio 24:1 ABG pH 7.49 H ABG pCO2 23.7 L ABG pO2 86.5 ABG HCO3 17.6 L ABG O2 Saturation 97.4 ABG Base Excess -4.5 FiO2 30% Sodium 139.1 Potassium 3.5 L Chloride 110 H Carbon Dioxide 18 L Anion Gap 11 BUN 32 H Creatinine 3.28 H Est GFR ( Amer) 24 L Glucose 220 H Calcium 7.7 L Phosphorus 3.8 Magnesium 2.2 Total Bilirubin 0.7 AST 84 H Alkaline Phosphatase 133 H Total Protein 5.7 L Albumin 2.6 L Urine Color Urine Appearance Urine pH Ur Specific [place] Urine Protein Urine Glucose (UA) Urine Ketones Urine Blood Urine Nitrite Ur Leukocyte Esterase Urine WBC (Auto) Urine RBC (Auto) 04/15/20 05:38 WBC RBC Hgb Hct MCV MCH MCHC RDW Plt Count Seg Neutrophils % Carbonic Acid HCO3/H2CO3 Ratio ABG pH ABG pCO2 ABG pO2 ABG HCO3 ABG O2 Saturation ABG Base Excess FiO2 Sodium Potassium Chloride Carbon Dioxide Anion Gap BUN Creatinine Est GFR ( Amer) Glucose Calcium Phosphorus Magnesium Total Bilirubin AST Alkaline Phosphatase Total Protein Albumin Urine Color YELLOW Urine Appearance SLIGHTLY-CLOUDY Urine pH 5.0 Ur Specific [place] 1.014 Urine Protein 100 H Urine Glucose (UA) 50 H Urine Ketones NEGATIVE Urine Blood MODERATE H Urine Nitrite NEGATIVE Ur Leukocyte Esterase NEGATIVE Urine WBC (Auto) 5 Urine RBC (Auto) 3 04/11/20 04/11/20 04/11/20 01:02 01:02 15:35 Creatine Kinase 743 H CK-MB (CK-2) 2.41 Troponin I 0.077 0.261 04/13/20 04/13/20 04:43 04:43 Creatine Kinase 540 H CK-MB (CK-2) Troponin I 0.126 Impressions: Foot X-Ray 04/09/20 20:34 IMPRESSION: Findings are consistent with osteomyelitis involving the lateral aspect of the fifth metatarsal base. Associated underlying pathologic fracture deformity. Superimposed foci of soft tissue gas at this site could indicate infection with a gas-forming organism. copyright 2010 [employer]- All Rights Reserved Abdomen/Pelvis CT 04/11/20 00:00 IMPRESSION: NO SIGNIFICANT OR ACUTE PROCESS IN THE ABDOMEN OR PELVIS. Chest CT 04/11/20 00:00 IMPRESSION: MILD CARDIOMEGALY. BILATERAL PLEURAL EFFUSIONS WITH FAINT ATELECTASIS. NO LOBAR INFILTRATES. Head CT 04/11/20 00:00 IMPRESSION: NORMAL BRAIN CT WITHOUT CONTRAST. EVIDENCE OF ACUTE STROKE: NO. Venous Doppler Study 04/14/20 00:00 IMPRESSION: No sonographic evidence of acute DVT within the right lower extremity. Subcutaneous edema. Chest X-Ray 04/15/20 06:00 IMPRESSION: NO SIGNIFICANT CHANGE IN APPEARANCE OF THE CHEST. All labs, radiographs, diagnostic studies and EKGs were personally reviewed: Yes In addition, reports of radiographic and diagnostic studies were read: Yes Assessment and Plan - Diagnosis (1) Cardiopulmonary arrest with successful resuscitation Is this a current diagnosis for this admission?: Yes (2) Brain anoxic injury Is this a current diagnosis for this admission?: Yes (3) Coma Qualifiers: Coma depth: Lefty coma 3-8 Coma timin hours or more after hospital admission Qualified Code(s): R40.2434 - [place] coma scale score 3-8, 24 hours or more after hospital admission Is this a current diagnosis for this admission?: Yes (4) Myoclonia epileptica Is this a current diagnosis for this admission?: Yes (5) Acute on chronic renal failure Qualifiers: Acute renal failure type: with acute tubular necrosis Chronic kidney disease stage: stage 4 (severe) Qualified Code(s): N17.0 - Acute kidney failure with tubular necrosis; N18.4 - Chronic kidney disease, stage 4 (severe) Is this a current diagnosis for this admission?: Yes (6) Metabolic acidosis Is this a current diagnosis for this admission?: Yes (7) Acute respiratory failure with hypoxia and hypercapnia Is this a current diagnosis for this admission?: Yes Plan Summary: 04.15.2020: Respiratory: Patient's respiratory status has improved on pressure support. We will transition him from conventional volume control ventilation once his neuromuscular blockade is discontinued. His neurologic status does not allow for liberation from mechanical ventilation. If this improves and he needs suitability as far as [place] Coma Scale he will be in consideration for liberation. Given his distinct and significant neurological dysfunction I am suspicious that he will need a tracheostomy. Continue to monitor and watch for aspiration pneumonia or pneumonitis given the aspiration event at the time of his transfer to the ICU. Infectious: Patient's white blood cell count is elevated. He is on meropenem which is sensitive in coverage to the bacteria acquired from his foot wound. Continue to monitor for worsening. Does not appear to be having any untoward effects related to the meropenem. Monitor for seizures. As far as the right foot surgery feels that this will require removal however they are awaiting improvement in neurological function before considering this. We will continue to monitor and follow accordingly. His would like to spare the foot at all costs if possible. Interestingly and characteristically this patient is following the same course that his father did before his father's demise. Cardiac: Have started the patient on Cardene drip. Given the amount of volume in this will try to wean this as much as possible. Patient has significant LVH and it may be more suitable to start on a beta-daryn at some point however will need to be a selective 1 twice to not cross the blood-brain barrier and cause further neurological dysfunction. He has been started on Ritalin and this does not appear to be contributing to the hypertension nor any undue arrhythmias. Patient is extremely edematous and has IVC which is well filled. Will start him on diuretic. Have discontinued IV fluids and will try reducing volume from Cardene. We are still unsure of the reason for his cardiac arrest but it appears based on indirect evidence that this was related to a respiratory event. The possibility of an arrhythmia and/or an untoward cardiac event is still under consideration. In that he has not had a previous echocardiogram and is on known whether this reduction in ejection fraction is related to the recent events or is longstanding. Given the global nature of the dysfunction it would appear to be related to the cardiac arrest as a result of this and not a cause. Hematologic: Patient has elevation of white count. We will continue to monitor and follow accordingly. Platelets are suitable to continue heparin and are not reduced. Patient's hemoglobin hematocrit are stable albeit somewhat anemic secondary to critical illness. Endocrine: Hemoglobin A1c is 10 indicative of poor compliance poor diabetes control. Have increased his Lantus to twice daily dosing and will follow res ults of this. If it continues to be elevated will increase the dosing. Have ordered TSH and T4 to rule out any hypothyroid disease. Renal: Renal function is slowly improving. This looks and appears to be ATN related to his cardiac arrest. Have started diuresis and follow results. He is extremely edematous attempt to reduce this volume. Metabolic: Patient received potassium supplementation this morning. Given the need for diuresis will recheck BMP this afternoon to ensure electrolyte stab ility. Alimentary: I have asked nutrition to adjudicate his enteral feedings to allow for 4 hours of no feeding. This is being done to assist with absorption of Sinemet which can be difficult with full stomach of food and/or nutrition. Neurologic: Patient has minimal improvement except that he has now spontaneously opening his eyes and appears to be responding to noise. Sinemet has been starte d to as well as Ritalin to see if there is any improvement in his neurological function. Follow-up on EEG reports. Sedation: Transiently will be on Precedex and was given high-dose fentanyl as well as neuromuscular blockade for EEG. Lines/Tubes: Patient's central line is day 5. Endotracheal tube and James are day 5. Other: Met with the patient's at bedside to discuss prognosis, condition and overall care. Answered questions and provided objective commentary based on current findings. Patient is to have an EEG as well as CAT scan today. CAT scan being done to rule out any stroke that may have occurred. I am concerned that this patient will have a prolonged neurological illness and the is asking for some time to determine how well he will do. When asked what his wishes were to not be maintained in a prolonged vegetative state this is the 's wish as well. Discussed that if he does improve how much further that improvement will occur will be time dependent. Will wait through the weekend to determine neurological function and reevaluate for possible need for early tracheostomy. 04.14.2020: Respiratory: Patient appears to have had some ventilator dyssynchrony and has been placed on pressure support. Will need to be vigilant to watch for atelectasis and mucous obstruction. Have increased his PEEP to 10. This may herald an encouraging sign that the patient brain function may be improving. Unable to liberate from mechanical ventilation secondary to neuro dysfunction. He also has a slightly enlarged tongue and this will need to be reduced and swelling for safe extubation. Continue to watch for atelectasis and aspiration pneumonitis] Infectious: Patient has had patient and his temperature and is required accord ingly. We have changed his antibiotics to meropenem to better cover Pseudomonas and the multi-spectrum bacteria in foot wound and strep in his blood. I am encouraged that his white count has improved as well. This fever may be guest service representative of neuro dysfunction related fever but again will need to control. Have ordered procalcitonin but latency in the delivery of results precludes timely evaluation for de-escalation of antibiotics and/or change in therapy. Although meropenem is not always a helpful drug in concern for seizures. He does not have any active seizures and he is on Depakote. The use of Levaquin would be discouraged because of EKG, arrhythmia and other unwelcome sequelae. Will be mindful to watch for any change in his neuro status on the meropenem. Cardiac: His echocardiogram shows mild dysfunction on our wet read. Will wait for formal evaluation. His blood pressure has been an issue and seems to be symptomatically related to examination and redressing his wound. I have written for fentanyl to be used for systolic blood pressure greater than 160 and/or any procedures causing pain. Although the exact blood pressure for this situation is not known we have tried to limit to no higher than 160 mmHg. Have added Norvasc and adjusted his hydralazine. Hematologic: No active hematologic issues. Will screen for DVT in the right leg. Endocrine: Glucose has been elevated and have transitioned him to twice daily Lantus. He had been on 12 units once a day and I have transitioned him to 8 units twice a day for slight incremental increase. Continue on supplemental coverage of short acting insulin as needed. Renal: Patient's renal dysfunction continues to be increased. He did respond to IV fluids and will continue to monitor continued response to this. Adjust medications for GFR. Metabolic: Patient has slightly elevated phosphorus we will continue to monitor accordingly. He has a slight metabolic acidosis which does not require treatment at this time. Most likely related to renal failure Alimentary: Patient will be started on L-dopa to help stimulate neuro function. Because of this he will need to have his tube feeds held at 06 100 every morning until 10:00. Will adjust nutritional elements to support full and adequate calories. Will ask nutrition to offer opinion as well. Neurologic: I am suddenly encouraged that the patient spontaneous eye opening. In neuro populations it has been found, anecdotally, that the institution of yulissa ro stimulating drugs such as L-dopa at 100 mg a day as well as Ritalin or other neuro stimulant agents are. Given that this patient's neuro status is deplorable, this may be the only medication which will help gain some neurological function. Will need to be watchful of his blood pressure and I lynn ve started at a lower dose of Ritalin. Please see discussion under other regarding goals regarding his neurological care Sedation: Precedex to be discontinued. We will continue Depakote. We will c heck levels and follow ammonia Lines/Tubes: Patient has central line placed today is day 3 Other: Had a lengthy discussion with his Amber by phone. Because of the pandemic she has not been able to be at bedside for the last 2 days. We discussed his prognosis and the possibility that he does not have a true neurological outcome. We have offered discontinuation of care as a reasonable alternative if she feels that this would be in his best interest for his wish. She is not willing to pursue this at this time and we are supportive of this decision. She is in agreement with starting some neuro stimulation therapy. We also discussed the possibility of early tracheostomy to be somewhat problematic because of the need for the right foot to have either complete removal or BKA. This will need to be further considered. She has asked for more time to consider and I have discussed that if after a week there is minimal recovery but she would want further care that we would encourage an earlier tracheostomy and PEG tube than later. Have ordered repeat CT scan of the brain to evaluate for any ischemic changes and have ordered an ultrasound of the lower extremity as well DVT. 04.13.2020: Respiratory: Patient still unable to tolerate liberation from mechanical ventilation until his neurological status has improved. He has had significant dental injury from teeth clenching and his tongue is swollen as a result of this. We will need to assure that this is proved before safe removal of the ET tube. Chest x-ray shows ET tube to be very high in the airway and this is been adjusted downwards. Infectious: Antibiotics have been adjudicated to support the ongoing infection bloodstream and wound. Adjustments to protect from further renal dysfunction. Repeat blood cultures and continue antibiotics as noted. Surgery is recommending removal of the lower aspect of the leg however this is pending his neurological status. Cardiac: Patient has occasional PVCs noted on monitor and on EEG. Will continue to monitor very closely. Our concern overall is that he had an arrhythmia which may have precipitated these events. We will monitor amount of PVCs and consider beta-daryn therapy if needed. Awaiting echocardiogram report Hematologic: Patient has active bloodstream infection continue to monitor and follow. Endocrine: Supportive care for glucose. Renal: Renal function has improved slightly with IV fluids. He does have generalized edema which may be suggestive of infection. Continue to monitor accordingly. IV fluids changed to LR. Metabolic: Continue to monitor electrolytes. Alimentary: Start tube feedings. Neurologic: Patient has a burst suppression pattern on EEG. This is somewhat discouraging in that it may represent significant brain anoxia. However that being said he is suppressed with Depakote and propofol. Will attempt to wean propofol and placed on Precedex in order to obtain a better neurological exam. I am somewhat encouraged by the patient's eye opening with stimulus and hope that this represents a suggestive improvement. Continue Depakote at current rate. Continue to follow neurological exam. We will consider the use of L-dopa and/or Ritalin to help improve brain function however will need to continue to monitor cardiac function and await echo. Sedation: As noted above changing to Precedex and continue on Depakote. Follow ammonia level Lines/Tubes: Day 3 central venous catheter and arterial catheter Other: Will update by phone Critical Time Critical Time (minutes): 68 Level of Care: ICU -: 1. The care of a critical patient is a dynamic process. This note is a guest service representative synopsis but static in nature. The timeframe for treatments given in order is not necessarily the actual time these treatments may have been done. 2. This patient requires critical care secondary to ongoing requirements for therapy not offered or safe outside the critical care environment. Transfer to a lower level of care will result in altered life or limb morbidity and mortality. 3. Multidisciplinary rounds completed. 4. ABCDE bundle addressed.
--- NOTE | 2020-04-15 14:55 | RADIOLOGY REPORT (SQ) ---
EXAM DESCRIPTION: CT HEAD WITHOUT IMAGES COMPLETED DATE/TIME: 04/15/2020 2:45 pm REASON FOR STUDY: [place] COMPARISON: 04/11/2020. TECHNIQUE: Axial images acquired through the brain without intravenous contrast. Images reviewed wi th bone, brain and subdural windows. Additional sagittal and coronal reconstructions were generated. Images stored on PACS. All CT scanners at this facility use dose modulation, iterative reconstruction, and/or weight based d osing when appropriate to reduce radiation dose to as low as reasonably achievable (ALARA). [facility]: Dose Right [facility]: CareDose [facility]: Dose Right [facility]: Teradose 4D [facility]: Enevo RADIATION DOSE: CT Rad equipment meets quality standard of care and radiation dose reduction techniq ues were employed. CTDIvol: 48.6 mGy. DLP: 954 mGy-cm. mGy. LIMITATIONS: None. FINDINGS: VENTRICLES: Normal size and contour. CEREBRUM: No masses. No hemorrhage. No midline shift. No evidence for acute infarction. Normal gra y/white matter differentiation. No areas of low density in the white matter. CEREBELLUM: No masses. No hemorrhage. No alteration of density. No evidence for acute infarction. EXTRAAXIAL SPACES: No fluid collections. No masses. ORBITS AND GLOBE: No intra- or extraconal masses. Normal contour of globe without masses. CALVARIUM: No fracture. PARANASAL SINUSES: Fluid in the sinuses. SOFT TISSUES: No mass or hematoma. OTHER: No other significant finding. IMPRESSION: NORMAL BRAIN CT WITHOUT CONTRAST. SINUS DISEASE. EVIDENCE OF ACUTE STROKE: NO. COMMENT: Quality ID # [id number]: Final reports with documentation of one or more dose reduction techniques (e.g., Automated exposure control, adjustment of the mA and/or kV according to patient size, use of iterative reconstruction technique) TECHNICAL DOCUMENTATION: JOB ID: [id number] 2010 [employer]- All Rights Reserved Reading location - IP/workstation name: [email or web address]
[2020-04-15 18:01] LABS: ANION GAP 7 (5-19); BLOOD UREA NITROGEN 35 mg/dL (7-20); CALCIUM 8.1 mg/dL (8.4-10.2); CARBON DIOXIDE 22 mmol/L (22-30); CHLORIDE 112 mmol/L (98-107); GLUCOSE 148 mg/dL (75-110); POTASSIUM 4.2 mmol/L (3.6-5.0)
[2020-04-15] MEDS ORDERED: VALPROATE SODIUM 500 MG in NORMAL SALINE 100 ML IV ONE (19:00)
[2020-04-15] MEDS: METOPROLOL TARTRATE 25 MG TABLET PO SCH ×2 (19:10→21:28)
[2020-04-15] MEDS: HYDRALAZINE HCL 50 MG TABLET PO SCH ×2 (19:10→21:27)
--- NOTE | 2020-04-15 19:23 | NEURO WORKBENCH EEG REPORT ---
EEG Report Patient: Colin Lisa ID: [id number] Referring Doctor: Pancho Lopez Date: 04/15/2020 Reason for study: Evaluate Epileptiform activity Medications: Aspirin, Norvasc, Lipitor, Sinemet, Insulin, Ritalin, Protonix History: This is a 59 year old male with a history of diabetes, HTN, left AKA, s/p cardiac ablation in 2008, admitted with right foot gangrene. This EEG was requested for evaluation of epileptiform activity. The patient was given fentanyl, precedex, and rocuronium during this EEG due to excessive noise. EEG Interpretation: This EEG was recorded with a patient intubated in the ICU. The first approximately 55 minutes of the recording was dominated by excessive myogenic artifact making it unreliable for interpretation. The patient was then given fentanyl, precedex, and rocuronium. The myogenic artifact then resolved, and the EEG showed no definitive cerebral activity when reviewed at a display gain of 2 uV/division. There was persistent electrode artifact noted from P3. There was potential theta activity noted in just one channel (T5-O1), but there was no reliable field and the P3-O1 trace was not reliable for interpretation due to P3 electrode artifact. Photic stimulation resulted in no photic driving. There were no epileptiform abnormalities (no sharp waves and no spikes). There were no seizures. The EKG showed tachycaria with approximately 100-120 beats per minute, with some periods of irregularity. EEG Impression: This EEG is markedly abnormal due the absence of any definitive cerebral activity (potential theta activity in the left occipital region as above, but not definitive). The patient was given fentanyl and precedex during the study which can certainly lead to EEG suppression. This study was technically inadequate for determination of brain or electrocerebral inactivity. This EEG is consistent with diffuse cerebral dysfunction as may be seen with hypoxia- ischemia, drug Intoxication (likely contributing in this case), or other diffuse cerebral injury. Further evaluation with imaging such as MRI should be considered. In addition, there were cardiac rhythm abnormalities which should be further evaluated. INTERPRETING NEUROLOGIST: Richar Gillespie MD Board certified by the [employer] in Neurology, Clinical Neurophysiology, and Sleep Medicine [facility]
[2020-04-15] MEDS: IPRATROPIUM/ALBUTEROL 0.5-2.5 MG/3 ML AMPUL NEB PRN (20:25)
[2020-04-16] MEDS: LABETALOL HCL INJ 20 MG/4 ML DISP.SYRIN IV PRN ×2 (00:59→04:20)
[2020-04-16] MEDS: NICARDIPINE HCL RTU, ISO-OS 20 MG/200 ML RTUINJ IV PRN ×4 (00:59→22:00)
[2020-04-16] MEDS: INSULIN REG, HUMAN 100 UNIT/ML 3 ML VIAL (PYX) SUBCUT SCH ×6 (01:15→21:41)
[2020-04-16] MEDS: VALPROATE SODIUM IV SCH ×2 (01:15→10:57)
[2020-04-16] MEDS: NORMAL SALINE IV SCH ×2 (01:15→10:57)
[2020-04-16 04:27] LABS: HEMATOCRIT 25.9 % (37.9-51.0); HEMOGLOBIN 8.5 g/dL (13.5-17.0); MEAN CORPUSCULAR HEMOGLOBIN 26.1 pg (27.0-33.4); MEAN CORPUSCULAR HGB CONC 32.9 g/dL (32.0-36.0); MEAN CORPUSCULAR VOLUME 79 fl (80-97); PLATELET COUNT 471 10^3/uL (150-450); RED BLOOD COUNT 3.26 10^6/uL (4.35-5.55); RED CELL DISTRIBUTION WIDTH 15.2 % (11.5-14.0); WHITE BLOOD COUNT 18.5 10^3/uL (4.0-10.5)
[2020-04-16 04:40] LABS: ARTERIAL BLOOD BASE EXCESS -3.2 mmol/L; ARTERIAL BLOOD H2CO3 0.82 mmol/L (1.05-1.35); ARTERIAL BLOOD HCO3 19.7 mmol/L (20-24); ARTERIAL BLOOD O2 SATURATION 97.3 % (94-98); ARTERIAL BLOOD PCO2 27.4 mmHg (35-45); ARTERIAL BLOOD PH 7.47 (7.35-7.45); ARTERIAL BLOOD PO2 87.4 mmHg (80-100); ARTERIAL BLOOD TOTAL CO2 20.5 mmol/L (23-27)
[2020-04-16 04:41] LABS: ARTERIAL BLOOD FIO2 30%
[2020-04-16 04:43] LABS: PHOSPHORUS 4.3 mg/dL (2.5-4.5)
[2020-04-16 04:58] LABS: ABSOLUTE MONOCYTES # (MANUAL) 1.7 10^3/uL (0.1-1.4); ANISOCYTOSIS SLIGHT; BAND NEUTROPHILS % (MANUAL) 3 % (3-5); BASOPHILS % (MANUAL) 0 % (0-2); EOSINOPHILS % (MANUAL) 0 % (0-6); LYMPHOCYTES % (MANUAL) 11 % (13-45); MONOCYTES % (MANUAL) 9 % (3-13); NUCLEATED RED BLOOD CELLS 1 /100 WBC (0); PLATELET COMMENT INCREASED; SEGMENTED NEUTROPHILS % (MAN) 77 % (42-78); TOTAL CELLS COUNTED 100
[2020-04-16 05:08] LABS: FREE T4 (FREE THYROXINE) 1.01 ng/dL (0.78-2.19)
[2020-04-16 05:22] LABS: THYROID STIMULATING HORMONE 1.01 uIU/mL (0.47-4.68)
--- NOTE | 2020-04-16 06:10 | RADIOLOGY REPORT (SQ) ---
EXAM DESCRIPTION: XR CHEST 1 VIEW COMPLETED DATE/TME: 04/16/2020 06:00 CLINICAL HISTORY: 59 years, Male, tube position COMPARISON: 04/15/2020 chest NUMBER OF VIEWS: 1 TECHNIQUE: Portable chest LIMITATIONS: None. FINDINGS: Stable cardiomegaly. Grossly stable indwelling tubes/lines/catheters. Lungs are clear. No pneumothorax IMPRESSION: Stable chest copyright 2010 [employer]- All Rights Reserved
[2020-04-16] MEDS: HYDRALAZINE HCL 50 MG TABLET PO SCH ×4 (06:11→21:43)
[2020-04-16] MEDS: AMLODIPINE BESYLATE 5 MG TABLET PO SCH ×2 (06:11→18:07)
[2020-04-16] MEDS: HEPARIN SOD (PORCINE) 5,000 UNIT/ML 1 ML VIAL SUBCUT SCH ×3 (06:11→21:41)
[2020-04-16] MEDS: FENTANYL CITRATE INJ/PF 100 MCG/2 ML AMPUL IV PRN ×3 (06:21→19:21)
[2020-04-16] MEDS ORDERED: ACETAMINOPHEN 650 MG SUPP.RECT PR ONE ×2 (08:00→10:45)
[2020-04-16] MEDS ORDERED: VANCOMYCIN HCL 0 MG in DEXTROSE 5%-WATER 250 ML IV NR (10:15)
[2020-04-16] MEDS: PANTOPRAZOLE SODIUM 40 MG VIAL IV SCH (10:57)
[2020-04-16] MEDS: FUROSEMIDE INJ/PF 20 MG/2 ML SDV IV SCH ×2 (10:57→21:41)
[2020-04-16] MEDS: ASPIRIN 81 MG TABLET, ENT COATED PO SCH (10:58)
[2020-04-16] MEDS: METOPROLOL TARTRATE 25 MG TABLET PO SCH ×3 (10:59→21:43)
[2020-04-16] MEDS ORDERED: NORMAL SALINE IV ONE ×2 (11:00→12:45)
[2020-04-16] MEDS ORDERED: VALPROATE SODIUM IV ONE ×2 (11:00→12:45)
[2020-04-16] MEDS: ATORVASTATIN CALCIUM 40 MG TABLET NG SCH (11:00)
[2020-04-16] MEDS: CARBIDOPA/LEVODOPA 10-100 MG TABLET PO SCH (11:00)
[2020-04-16] MEDS: INSULIN GLARGINE,HUM.REC.ANLOG 1,000 UNIT/10 ML VIAL SUBCUT SCH ×2 (11:01→21:42)
[2020-04-16] MEDS: METHYLPHENIDATE HCL 5 MG TABLET PO SCH ×2 (11:01→12:58)
[2020-04-16] MEDS ORDERED: VANCOMYCIN HCL 1,000 MG in DEXTROSE 5%-WATER 250 ML IV SCH (12:00)
[2020-04-16] MEDS: MEROPENEM 500 MG in NORMAL SALINE 50 ML IV SCH (12:58)
[2020-04-16] MEDS ORDERED: FENTANYL CITRATE INJ/PF 100 MCG/2 ML AMPUL IV ONE (13:31)
[2020-04-16] MEDS: IPRATROPIUM/ALBUTEROL 0.5-2.5 MG/3 ML AMPUL NEB PRN (13:45)
[2020-04-16 15:06] LABS: ANION GAP 6 (5-19); BLOOD UREA NITROGEN 36 mg/dL (7-20); CALCIUM 7.7 mg/dL (8.4-10.2); CARBON DIOXIDE 23 mmol/L (22-30); CHLORIDE 113 mmol/L (98-107); GLUCOSE 229 mg/dL (75-110); PHOSPHORUS 4.6 mg/dL (2.5-4.5); POTASSIUM 3.9 mmol/L (3.6-5.0)
--- NOTE | 2020-04-16 16:45 | PDOC CRITICAL CARE PROG REPORT ---
General Date:: 04/16/20 ICU Day:: 6 Ventilator Day:: 6 Hospital Day:: 6 Resuscitation Status: Full Code Medical Power of Alley Cleaner: , Amber Events in the past 12 to 24 Hours:: 04.16.2020: Patient continues to have spontaneous eye movement. He still has persistent fevers without identifiable source except possibility of his right foot. Central line has been removed and James catheter has been ordered to be removed. Patient has not had any chest x-ray changes or findings suggestive of pneumonia. Blood cultures have been negative and sputum cultures have been negative. DVT screen is negative for clot. His edema has improved with diuresis. Blood pressure has improved and he is on Cardene drip at 3 mg/h. 04.15.2020: Patient has more spontaneous eye movement today and appears to be reacting to noises and voices in the room. Still not tracking though. There has been no myoclonic movements nor active clinical seizures. EEG attempt this morning was thwarted by excessive muscular activity. This was able to be aborted by sedation and neuromuscular blockade in order to achieve EEG. He was sedated with high-dose fentanyl and Precedex during the neuromuscular blockade. His blood pressure has been labile and he was started on Cardene drip to improve this. His glucose has been elevated and he was transitioned to twice daily dosing. He was also started on L-dopa in the form of Sinemet and Ritalin this morning with tube feeds being held in accordance with nutrition requirements for Sinemet. He has not had any obstruction or mucus plugging in his ET tube. Last evening appears to have had some ventilator dyssynchrony and was been placed on pressure support. He has been placed on conventional ventilation during the neuromuscular blockade portion for his EEG. 04.14.2020: Patient has had no further myoclonic movements on Depakote. He has b een transitioned to Precedex. He has had intermittent hypertensive episodes that have not been associated with nystagmus. Last evening he developed what appeared to be acute respiratory compromise and was noted to have significant mucus obstruction of his ET tube. This was quickly recognized by the nighttime critical care team and remedied with suction. His blood pressures have been somewhat labile but not severe they have been treated with PRN antihypertensives. He has had no demonstrable improvement in neurological function other than he has stronger eye opening times has spontaneous eye opening. 04.13.2020: Patient's myoclonic movements have dramatically decreased and occur only occasionally. He opens his eyes today with voice but is not always consistent. Urine output has been low and IV fluids were started with improvement. 04.12.2020: Patient has remained comatose and required propofol secondary to excessive teeth clenching while on the ventilator. This caused dental trauma to the lower dental ridge while the patient was intubated. He was noted to have myoclonic movements today and he was started on Depakote. After repeat examinations these have improved with the concurrent use of propofol and Depakote. Extensive review of the reason for the patient's respiratory arrest was done. There was no sedate of medications given. The states that he was well and perfectly fine at 9 PM the night before the event occurred. Review of the nursing notes they noted bradycardia and coughing. Unfortunately, his creati [address] scan to rule out PE. Initially hypotensive, he is now improved and off vasopressor therapy. Review of systems relevant to events:: 04.16.2020: White blood cell count is elevated. Procalcitonin has been ordered and is pending. Creatinine has improved chest x-ray is clear 04.15.2020: Echocardiogram reviewed. Patient has ejection fraction of approximat lizeth 40 to 45% which is moderately reduced. Doppler measurements suggest impaired ventricular relaxation consistent with grade 1 diastolic dysfunction. There are no regional wall motion abnormalities and appears to be global dysfunction. The right ventricle was normal in size. IVC was very dilated and had no respirophasic changes. 04.14.2020: Vitals were reviewed. He had temperature elevation as high as 101.8 at 7:00 this morning. There is been no hypotension. Echocardiogram has been done. Official reading is still pending. Review of it unofficially shows what appears to be a slight reduction in EF on some of the imaging. No pericardial effusion was seen. Right ventricle is not enlarged. 04.13.2020: No active seizures noted. EEG ongoing during examination. PEEP reduced to 5. No further respiratory distress. 04.12.2020: states that patient sleeps in a chair at night upright. She does endorse that he snores but does not know if he has sleep apnea because she does not sleep with him physically. She does not know if he is ever been told he has sleep apnea. Review of medications and antibiotics does not show any medications which would have led to arrhythmias. Reason for ICU Addmission:: Post respiratorycardiac arrest - Medications: Vasopressors:: Cardene drip Sedation:: Depakote. Physical Exam Vital Signs: Temp Pulse Resp BP Pulse Ox 101.7 F H 120 H 17 140/61 H 97 04/16/20 11:58 04/15/20 22:00 04/16/20 14:00 04/13/20 18:00 04/16/20 14:36 Intake & Output 04/15/20 04/16/20 04/17/20 06:59 06:59 06:59 Intake Total 3245 1164 1160.0 Output Total 1665 2160 575 Balance 1580 -996 585.0 Weight 88.9 kg 90.1 kg Weight/Height Weight 90.1 kg Height 6 ft General appearance: PRESENT: no acute distress, well-developed, well-nourished Exam: Intubated ill-appearing but nontoxic 59-year-old black male no acute distress. After rounds he developed increased respiratory rate with low tidal volume and he was transitioned back to assist control. He was also given fentanyl. Eye exam: PRESENT: conjunctiva pink, PERRLA. ABSENT: conjunctival injection, nystagmus, scleral icterus Mouth exam: PRESENT: moist, neck supple, other Teeth exam: PRESENT: poor dentation, other - As noted previously front lower incisors disrupted with alveolar disruption. Neck exam: PRESENT: other - Right IJ central venous catheter is intact. The area is moist but there is no erythema.. ABSENT: JVD, lymphadenopathy, thyromegaly, tracheal deviation Respiratory exam: PRESENT: accessory muscle use - Seen earlier in the day now discontinued., tachypnea. ABSENT: rhonchi, unlabored - Labored previously but responded to fentanyl and change in ventilator settings. Cardiovascular exam: PRESENT: RRR, +S1, +S2 Pulses: PRESENT: other - BKA left leg. Right has no pulse Vascular exam: PRESENT: normal capillary refill. ABSENT: pallor GI/Abdominal exam: PRESENT: normal bowel sounds, soft. ABSENT: ascites, distend ed, guarding, mass, organolmegaly, rebound, tenderness Rectal exam: PRESENT: deferred Gentrourinary exam: PRESENT: indwelling catheter Extremities exam: PRESENT: +1 edema Musculoskeletal exam: PRESENT: deformity - left BKA. Wounds in right foot. [place] drains intact and minimal drainage. ABSENT: dislocation, tenderness Neurological exam: PRESENT: altered - GCS: 1-1i-1. Four score: 3-0-4-1 Unable to check Babinski. Skin exam: ABSENT: jaundice, mottled Laboratory/Radiographs Laboratory Results: 04/16/20 04:15 04/16/20 14:30 04/15/20 04/16/20 04/16/20 17:30 04:10 04:10 WBC RBC Hgb Hct MCV MCH MCHC RDW Plt Count Seg Neutrophils % Carbonic Acid 0.82 L HCO3/H2CO3 Ratio 24:1 ABG pH 7.47 H ABG pCO2 27.4 L ABG pO2 87.4 ABG HCO3 19.7 L ABG O2 Saturation 97.3 ABG Base Excess -3.2 FiO2 30% Sodium 140.5 Potassium 4.2 Chloride 112 H Carbon Dioxide 22 Anion Gap 7 BUN 35 H Creatinine 3.28 H Est GFR ( Amer) 24 L Glucose 148 H Calcium 8.1 L Phosphorus 4.0 Magnesium 2.4 H Ammonia < 8.7 L TSH Free T4 04/16/20 04/16/20 04/16/20 04:10 04:10 04:15 WBC 18.5 H RBC 3.26 L Hgb 8.5 L Hct 25.9 L MCV 79 L MCH 26.1 L MCHC 32.9 RDW 15.2 H Plt Count 471 H Seg Neutrophils % Not Reportable Carbonic Acid HCO3/H2CO3 Ratio ABG pH ABG pCO2 ABG pO2 ABG HCO3 ABG O2 Saturation ABG Base Excess FiO2 Sodium Potassium Chloride Carbon Dioxide Anion Gap BUN Creatinine Est GFR ( Amer) Glucose Calcium Phosphorus 4.3 Magnesium 2.3 Ammonia TSH 1.01 Free T4 1.01 04/16/20 14:30 WBC RBC Hgb Hct MCV MCH MCHC RDW Plt Count Seg Neutrophils % Carbonic Acid HCO3/H2CO3 Ratio ABG pH ABG pCO2 ABG pO2 ABG HCO3 ABG O2 Saturation ABG Base Excess FiO2 Sodium 141.7 Potassium 3.9 Chloride 113 H Carbon Dioxide 23 Anion Gap 6 BUN 36 H Creatinine 3.25 H Est GFR ( Amer) 24 L Glucose 229 H Calcium 7.7 L Phosphorus 4.6 H Magnesium 2.3 Ammonia TSH Free T4 04/11/20 05:10 Blood Blood Culture - Final NO GROWTH IN 5 DAYS 04/11/20 02:19 Blood Blood Culture - Final NO GROWTH IN 5 DAYS 04/11/20 04/11/20 04/11/20 01:02 01:02 15:35 Creatine Kinase 743 H CK-MB (CK-2) 2.41 Troponin I 0.077 0.261 04/13/20 04/13/20 04:43 04:43 Creatine Kinase 540 H CK-MB (CK-2) Troponin I 0.126 Impressions: Foot X-Ray 04/09/20 20:34 IMPRESSION: Findings are consistent with osteomyelitis involving the lateral aspect of the fifth metatarsal base. Associated underlying pathologic fracture deformity. Superimposed foci of soft tissue gas at this site could indicate infection with a gas-forming organism. copyright 2010 [email or web address]- All Rights Reserved Abdomen/Pelvis CT 04/11/20 00:00 IMPRESSION: NO SIGNIFICANT OR ACUTE PROCESS IN THE ABDOMEN OR PELVIS. Chest CT 04/11/20 00:00 IMPRESSION: MILD CARDIOMEGALY. BILATERAL PLEURAL EFFUSIONS WITH FAINT ATELECTASIS. NO LOBAR INFILTRATES. Venous Doppler Study 04/14/20 00:00 IMPRESSION: No sonographic evidence of acute DVT within the right lower extremity. Subcutaneous edema. Head CT 04/15/20 05:00 IMPRESSION: NORMAL BRAIN CT WITHOUT CONTRAST. SINUS DISEASE. EVIDENCE OF ACUTE STROKE: NO. Chest X-Ray 04/16/20 06:00 IMPRESSION: Stable chest copyright 2010 [employer]- All Rights Reserved All labs, radiographs, diagnostic studies and EKGs were personally reviewed: Yes In addition, reports of radiographic and diagnostic studies were read: Yes Assessment and Plan - Diagnosis (1) Cardiopulmonary arrest with successful resuscitation Is this a current diagnosis for this admission?: Yes (2) Brain anoxic injury Is this a current diagnosis for this admission?: Yes (3) Coma Qualifiers: Coma depth: [place] coma 3-8 Coma timin hours or more after hospital admission Qualified Code(s): R40.2434 - Lef[place] coma scale score 3-8, 24 hours or more after hospital admission Is this a current diagnosis for this admission?: Yes (4) Fever Qualifiers: Fever type: unspecified Qualified Code(s): R50.9 - Fever, unspecified Is this a current diagnosis for this admission?: Yes (5) Myoclonia epileptica Is this a current diagnosis for this admission?: Yes (6) Acute on chronic renal failure Qualifiers: Acute renal failure type: with acute tubular necrosis Chronic kidney disease stage: stage 4 (severe) Qualified Code(s): N17.0 - Acute kidney failure with tubular necrosis; N18.4 - Chronic kidney disease, stage 4 (severe) Is this a current diagnosis for this admission?: Yes (7) Metabolic acidosis Is this a current diagnosis for this admission?: Yes (8) Acute respiratory failure with hypoxia and hypercapnia Is this a current diagnosis for this admission?: Yes Plan Summary: 04.16.2020: Respiratory: Patient continues to require mechanical ventilation secondary to his neurological status. He has occasional respiratory distress that appears to be related to either pain or fever. Fever is now improved this afternoon and with fentanyl his respiratory status has improved. It is also improved with transitioning back to conventional assist control settings. His tongue swelling has improved and should his neurological status improve this would not preclude liberation from mechanical ventilation. Continue to monitor for aspiration pneumonia. His chest x-ray has continued to remain clear and his ET tube is in appropriate position. I have not ordered a chest x-ray for tomorrow because he has had subsequent chest x-ray is clear and want to minimize radiation exposure. If his fever worsens or secretions worsen we may be entitled to obtain a chest x-ray. Infectious: Patient's white blood cell count and neutrophil count have been elevated and continued. I have sent a procalcitonin to determine if this is infectious. A noninfectious source could be TOOL PUSHER driven by the hypoxemic anoxic brain injury. In that infections are of paramount concern I have asked for the central line to be removed. His James will be transitioned to a condom catheter. Although neither of these sites appear to be the culprit these need to be removed from the equation. The only other site and source could be his right foot. To that end I have added vancomycin to his armamentarium. I am concerned that the Vanco may make his renal function worse so have considered Linezolid. Linezolid would be contraindicated with Ritalin so have chosen daptomycin. Will need to stop his Lipitor and follow CK and LFTs. We will also continue to monitor his right foot. I did have a discussion with his that we may need to sacrifice the right foot if this is possibly the source. I have ordered a procalcitonin to determine whether an infection actually exists however results are currently not always available in a timely fashion. We will continue to monitor this very closely. Surgery has recommended that if the foot needs to be removed that they would consider a BKA. This of course added s ignificant complexity to this patient's overall care. Please see " other" below. Cardiac: Patient does have reduced cardiac function. But apparently improved from previous. His states that he had stents placed and an ablation a number of years ago. At that time his ejection fraction was questionably 20%. Possibility that the cause of his arrest was related to cardiac is still suspicious however this appears to have been a respiratory event which sparked the cardiac arrest. At any rate no active treatment other than control of his blood pressure is warranted. I have increased his hydralazine and his beta- daryn. If his blood pressure continues to be a problem we may be forced to discontinue the Ritalin. Continue diuresis. Hematologic: No active hematologic issues except for his white count and platelet count which have increased. All of these may be related to concentrat ion changes given his diuresis. Endocrine: Patient's glucose has responded to Lantus therapy. Elevation is not as significant. I have increased Lantus slightly to 10 units twice daily with continued subcutaneous support as needed. Patient's diet will be changed to vital 1.5 and will need to watch glucose response to this. He will have nutrition given for 20 hours a day at 60 cc an hour. Please see Maia Andrade and neurologic below for further details Renal: Patient's creatinine has plateaued and now is declining. We will continue to monitor and follow with diuresis. Should there be an increase will need to reconsider further diuresis. Continue to monitor his phosphorus on the vital 1.5 and have started anti-phosphorus metabolism therapy. Had a long lengthy discussion with the patient's about the possibility of dialysis and what that would mean should he need tracheostomy. Our hope is that this would not need to happen and this will need to be discussed further should the need occur. Metabolic: Continue to monitor the patient's electrolyte status with diuresis. Alimentary: Have changed the patient to vital 1.5 at 60 cc an hour for 20 hours a day. Continue to hold nutrition to allow for Sinemet absorption. Given the fact that we have placed the patient on daptomycin will need to check LFTs daily as well as CK for rhabdomyolysis. His INR is slightly elevated this may be related to his illness. We will continue to monitor accordingly. Neurologic: Patient's neurological status has not greatly improved. I am concerned that the Depakote has caused suppression of the EEG function and now that there is no further myoclonus will pull back this treatment. Furthermore its metabolism is thwarted by the meropenem which is greatly needed at this point. My hope is that the Sinemet and Ritalin would be able to spark some neurological improvement. Given the competing medications I felt compelled to discontinue the Depakote. Should his mild clonus return or active clinical seizures occur then we will need to reconsider. Patient's overall neurological prognosis is poor. An MRI might be helpful to determine degree of anoxic brain injury however studies show that although MRI gives anatomical features for the amount of damage the functional physical exam is the most important. Furthermore, we are unable to obtain an MRI at this institution and transferring for prognostication would not be in the patient's interest and would complicate his already complex medical care. Sedation: We will discontinue all continuous sedation. Use fentanyl as needed he may be having physiologic pain from the right foot and this seems to help at times. Lines/Tubes: Central line and James catheter removed today Other: Had another [id number] conversation with the patient's , Amber. She is aware of the problems with his fever and the right foot. Although the outside inspection of the foot does not appear to show any worsening changes the edema in the foot and the osteomyelitis are concerning. I am hopeful that are treatment for his neurological dysfunction with Sinemet and Ritalin help in the situation and we should give this a few more days before there is consideration for either tracheostomy or discontinuation of care. We will continue to work closely with the family to this end. 04.15.2020: Respiratory: Patient's respiratory status has improved on pressure support. We will transition him from conventional volume control ventilation once his neuromuscular blockade is discontinued. His neurologic status does not allow for liberation from mechanical ventilation. If this improves and he needs suitability as far as [place]ef[place] Coma Scale he will be in consideration for liberation. Given his distinct and significant neurological dysfunction I am suspicious that he will need a tracheostomy. Continue to monitor and watch for aspiration pneumonia or pneumonitis given the aspiration event at the time of his transfer to the ICU. Infectious: Patient's white blood cell count is elevated. He is on meropenem which is sensitive in coverage to the bacteria acquired from his foot wound. Continue to monitor for worsening. Does not appear to be having any untoward effects related to the meropenem. Monitor for seizures. As far as the right foot surgery feels that this will require removal however they are awaiting i mprovement in neurological function before considering this. We will continue to monitor and follow accordingly. His would like to spare the foot at all costs if possible. Interestingly and characteristically this patient is following the same course that his father did before his father's demise. Cardiac: Have started the patient on Cardene drip. Given the amount of volume in this will try to wean this as much as possible. Patient has significant LVH and it may be more suitable to start on a beta-daryn at some point however will need to be a selective 1 twice to not cross the blood-brain barrier and cause further neurological dysfunction. He has been started on Ritalin and this does not appear to be contributing to the hypertension nor any undue arrhythmias. Patient is extremely edematous and has IVC which is well filled. Will start him on diuretic. Have discontinued IV fluids and will try reducing volume from Cardene. We are still unsure of the reason for his cardiac arrest but it appears based on indirect evidence that this was related to a respiratory event. The possibility of an arrhythmia and/or an untoward cardiac event is still under consideration. In that he has not had a previous echocardiogram and is on known whether this reduction in ejection fraction is related to the recent events or is longstanding. Given the global nature of the dysfunction it would appear to be related to the cardiac arrest as a result of this and not a cause. Hematologic: Patient has elevation of white count. We will continue to monitor and follow accordingly. Platelets are suitable to continue heparin and are not reduced. Patient's hemoglobin hematocrit are stable albeit somewhat anemic secondary to critical illness. Endocrine: Hemoglobin A1c is 10 indicative of poor compliance poor diabetes control. Have increased his Lantus to twice daily dosing and will follow results of this. If it continues to be elevated will increase the dosing. Have ordered TSH and T4 to rule out any hypothyroid disease. Renal: Renal function is slowly improving. This looks and appears to be ATN related to his cardiac arrest. Have started diuresis and follow results. He is extremely edematous attempt to reduce this volume. Metabolic: Patient received potassium supplementation this morning. Given the need for diuresis will recheck BMP this afternoon to ensure electrolyte stability. Alimentary: I have asked nutrition to adjudicate his enteral feedings to allow for 4 hours of no feeding. This is being done to assist with absorption of Sinemet which can be difficult with full stomach of food and/or nutrition. Neurologic: Patient has minimal improvement except that he has now spontaneously opening his eyes and appears to be responding to noise. Sinemet has been started to as well as Ritalin to see if there is any improvement in his neurological function. Follow-up on EEG reports. Sedation: Transiently will be on Precedex and was given high-dose fentanyl as well as neuromuscular blockade for EEG. Lines/Tubes: Patient's central line is day 5. Endotracheal tube and James are day 5. Other: Met with the patient's at bedside to discuss prognosis, condition and overall care. Answered questions and provided objective commentary based on current findings. Patient is to have an EEG as well as CAT scan today. CAT scan being done to rule out any stroke that may have occurred. I am concerned that this patient will have a prolonged neurological illness and the is asking for some time to determine how well he will do. When asked what his wishes were to not be maintained in a prolonged vegetative state this is the 's wish as well. Discussed that if he does improve how much further that improvement will occur will be time dependent. Will wait through the weekend to determine neurological function and reevaluate for possible need for early tracheostomy. 04.14.2020: Respiratory: Patient appears to have had some ventilator dyssynchrony and has been placed on pressure support. Will need to be vigilant to watch for atelectasis and mucous obstruction. Have increased his PEEP to 10. This may herald an encouraging sign that the patient brain function may be improving. Unable to liberate from mechanical ventilation secondary to neuro dysfunction. He also has a slightly enlarged tongue and this will need to be reduced and swelling for safe extubation. Continue to watch for atelectasis and aspiration pneumonitis] Infectious: Patient has had patient and his temperature and is required accordingly. We have changed his antibiotics to meropenem to better cover Pseudomonas and the multi-spectrum bacteria in foot wound and strep in his blood. I am encouraged that his white count has improved as well. This fever may be compliance representative dealer of neuro dysfunction related fever but again will need to control. Have ordered procalcitonin but latency in the delivery of results precludes timely evaluation for de-escalation of antibiotics and/or change in therapy. Although meropenem is not always a helpful drug in concern for seizures. He does not have any active seizures and he is on Depakote. The use of Levaquin would be discouraged because of EKG, arrhythmia and other unwelcome sequelae. Will be mindful to watch for any change in his neuro status on the meropenem. Cardiac: His echocardiogram shows mild dysfunction on our wet read. Will wait for formal evaluation. His blood pressure has been an issue and seems to be symptomatically related to examination and redressing his wound. I have written for fentanyl to be used for systolic blood pressure greater than 160 and/or any procedures causing pain. Although the exact blood pressure for this situation is not known we have tried to limit to no higher than 160 mmHg. Have added Norvasc and adjusted his hydralazine. Hematologic: No active hematologic issues. Will screen for DVT in the right leg. Endocrine: Glucose has been elevated and have transitioned him to twice daily Lantus. He had been on 12 units once a day and I have transitioned him to 8 units twice a day for slight incremental increase. Continue on supplemental coverage of short acting insulin as needed. Renal: Patient's renal dysfunction continues to be increased. He did respond to IV fluids and will continue to monitor continued response to this. Adjust medications for GFR. Metabolic: Patient has slightly elevated phosphorus we will continue to monitor accordingly. He has a slight metabolic acidosis which does not require treatment at this time. Most likely related to renal failure Alimentary: Patient will be started on L-dopa to help stimulate neuro function. Because of this he will need to have his tube feeds held at 06 100 every morning until 10:00. Will adjust nutritional elements to support full and adequate calories. Will ask nutrition to offer opinion as well. Neurologic: I am suddenly encouraged that the patient spontaneous eye opening. In neuro populations it has been found, anecdotally, that the institution of neuro stimulating drugs such as L-dopa at 100 mg a day as well as Ritalin or ot her neuro stimulant agents are. Given that this patient's neuro status is deplorable, this may be the only medication which will help gain some neurological function. Will need to be watchful of his blood pressure and I have started at a lower dose of Ritalin. Please see discussion under other re garding goals regarding his neurological care Sedation: Precedex to be discontinued. We will continue Depakote. We will check levels and follow ammonia Lines/Tubes: Patient has central line placed today is day 3 Other: Had a lengthy discussion with his Amber by phone. Because of the pandemic she has not been able to be at bedside for the last 2 days. We discussed his prognosis and the possibility that he does not have a true neurological outcome. We have offered discontinuation of care as a reasonable alternative if she feels that this would be in his best interest for his wish. She is not willing to pursue this at this time and we are supportive of this decision. She is in agreement with starting some neuro stimulation therapy. We also discussed the possibility of early tracheostomy to be somewhat problematic because of the need for the right foot to have either complete removal or BKA. This will need to be further considered. She has asked for more time to conside r and I have discussed that if after a week there is minimal recovery but she would want further care that we would encourage an earlier tracheostomy and PEG tube than later. Have ordered repeat CT scan of the brain to evaluate for any ischemic changes and have ordered an ultrasound of the lower extremity as well DVT. 04.13.2020: Respiratory: Patient still unable to tolerate liberation from mechanical ventilation until his neurological status has improved. He has had significant dental injury from teeth clenching and his tongue is swollen as a result of this. We will need to assure that this is proved before safe removal of the ET tube. Chest x-ray shows ET tube to be very high in the airway and this is been adjusted downwards. Infectious: Antibiotics have been adjudicated to support the ongoing infection bloodstream and wound. Adjustments to protect from further renal dysfunction. Repeat blood cultures and continue antibiotics as noted. Surgery is rec ommending removal of the lower aspect of the leg however this is pending his neurological status. Cardiac: Patient has occasional PVCs noted on monitor and on EEG. Will continue to monitor very closely. Our concern overall is that he had an arrhythmia which may have precipitated these events. We will monitor amount of PVCs and consider beta-daryn therapy if needed. Awaiting echocardiogram report Hematologic: Patient has active bloodstream infection continue to monitor and follow. Endocrine: Supportive care for glucose. Renal: Renal function has improved slightly with IV fluids. He does have generalized edema which may be suggestive of infection. Continue to monitor accordingly. IV fluids changed to LR. Metabolic: Continue to monitor electrolytes. Alimentary: Start tube feedings. Neurologic: Patient has a burst suppression pattern on EEG. This is somewhat discouraging in that it may represent significant brain anoxia. However that being said he is suppressed with Depakote and propofol. Will attempt to wean propofol and placed on Precedex in order to obtain a better neurological exam. I am somewhat encouraged by the patient's eye opening with stimulus and hope adore t this represents a suggestive improvement. Continue Depakote at current rate. Continue to follow neurological exam. We will consider the use of L-dopa and/or Ritalin to help improve brain function however will need to continue to monitor cardiac function and await echo. Sedation: As noted above changing to Precedex and continue on Depakote. Follow ammonia level Lines/Tubes: Day 3 central venous catheter and arterial catheter Other: Will update by phone Critical Time Critical Time (minutes): 60 Level of Care: ICU -: 1. The care of a critical patient is a dynamic process. This note is a compliance representative dealer synopsis but static in nature. The timeframe for treatments given in order is not necessarily the actual time these treatments may have been done. 2. This patient requires critical care secondary to ongoing requirements for therapy not offered or safe outside the critical care environment. Transfer to a lower level of care will result in altered life or limb morbidity and mortal ity. 3. Multidisciplinary rounds completed. 4. ABCDE bundle addressed.
[2020-04-16] MEDS ORDERED: NORMAL SALINE IV SCH (19:00)
[2020-04-16] MEDS ORDERED: DAPTOMYCIN IV SCH (19:00)
[2020-04-16 19:37] LABS: ALBUMIN 2.5 g/dL (3.5-5.0); ALKALINE PHOSPHATASE 123 U/L (38-126); ASPARTATE AMINO TRANSFERASE 95 U/L (17-59); BILIRUBIN,DIRECT 0.1 mg/dL (0.0-0.4); BILIRUBIN,TOTAL 0.3 mg/dL (0.2-1.3); CREATINE KINASE 213 U/L (55-170); TOTAL PROTEIN 5.1 g/dL (6.3-8.2)
--- NOTE | 2020-04-17 00:28 | RADIOLOGY REPORT (SQ) ---
ABDOMINAL RADIOGRAPH: 04/16/2020 11:24 PM CDT COMPARISON: None available TECHNIQUE: A single radiograph of the abdomen was obtained. HISTORY: 59-year old with abdominal pain and distention. FINDINGS: Only the lower abdomen was included on this examination. The visualized bowel gas pattern is nonspecific and nonobstructive. No abnormal intra-abdominal calcifications are seen. There are no findings to suggest organomegaly. A nasogastric tube tip is seen overlying the left upper quadrant of the abdomen, projecting at the stomach. A James catheter tip is seen at the midline pelvis. IMPRESSION: The bowel gas pattern is nonobstructive and nonspecific.
[2020-04-17] MEDS: FENTANYL CITRATE INJ/PF 100 MCG/2 ML AMPUL IV PRN ×2 (02:49→16:42)
[2020-04-17] MEDS: HYDRALAZINE HCL 50 MG TABLET PO SCH ×4 (02:49→22:11)
[2020-04-17] MEDS: MEROPENEM 500 MG in NORMAL SALINE 50 ML IV SCH ×2 (02:50→11:42)
[2020-04-17] MEDS: INSULIN REG, HUMAN 100 UNIT/ML 3 ML VIAL (PYX) SUBCUT SCH ×6 (02:56→22:12)
[2020-04-17 05:43] LABS: ABSOLUTE BASOPHILS # (AUTO) 0.1 10^3/uL (0.0-0.2); ABSOLUTE EOSINOPHILS # (AUTO) 0.1 10^3/uL (0.0-0.6); ABSOLUTE MONOCYTES (AUTO) 2.5 10^3/uL (0.1-1.4); ABSOLUTE NEUT (AUTO) 14.7 10^3/uL (1.7-8.2); ARTERIAL BLOOD BASE EXCESS -2.6 mmol/L; ARTERIAL BLOOD H2CO3 0.85 mmol/L (1.05-1.35); ARTERIAL BLOOD HCO3 20.4 mmol/L (20-24); ARTERIAL BLOOD O2 SATURATION 97.9 % (94-98); ARTERIAL BLOOD PCO2 28.4 mmHg (35-45); ARTERIAL BLOOD PH 7.48 (7.35-7.45); ARTERIAL BLOOD PO2 98.5 mmHg (80-100); ARTERIAL BLOOD TOTAL CO2 21.3 mmol/L (23-27); BASOPHILS % (AUTO) 0.3 % (0-2); EOSINOPHILS % (AUTO) 0.3 % (0-6); HEMATOCRIT 25.7 % (37.9-51.0); HEMOGLOBIN 8.6 g/dL (13.5-17.0); LYMPHOCYTES % (AUTO) 10.3 % (13-45); MEAN CORPUSCULAR HEMOGLOBIN 26.7 pg (27.0-33.4); MEAN CORPUSCULAR HGB CONC 33.5 g/dL (32.0-36.0); MEAN CORPUSCULAR VOLUME 80 fl (80-97); PLATELET COUNT 532 10^3/uL (150-450); RED BLOOD COUNT 3.22 10^6/uL (4.35-5.55); RED CELL DISTRIBUTION WIDTH 15.2 % (11.5-14.0); SEGMENTED NEUTROPHILS % (AUTO) 76.1 % (42-78); TOTAL CELLS COUNTED % (AUTO) 100 %; WHITE BLOOD COUNT 19.3 10^3/uL (4.0-10.5)
[2020-04-17 05:49] LABS: INTERNATIONAL RATION (INR) 1.14; PROTHROMBIN TIME 14.7 SEC (11.4-15.4)
[2020-04-17 05:50] LABS: ARTERIAL BLOOD FIO2 30%; PARTIAL THROMBOPLASTIN TIME 37.7 SEC (23.5-35.8)
[2020-04-17 06:11] LABS: AMYLASE 68 U/L (30-110); ANION GAP 9 (5-19); BLOOD UREA NITROGEN 39 mg/dL (7-20); CARBON DIOXIDE 21 mmol/L (22-30); CHLORIDE 112 mmol/L (98-107); GLUCOSE 174 mg/dL (75-110); PHOSPHORUS 4.6 mg/dL (2.5-4.5); POTASSIUM 3.9 mmol/L (3.6-5.0)
[2020-04-17] MEDS: AMLODIPINE BESYLATE 5 MG TABLET PO SCH ×2 (06:46→19:18)
[2020-04-17] MEDS: HEPARIN SOD (PORCINE) 5,000 UNIT/ML 1 ML VIAL SUBCUT SCH ×3 (06:46→22:12)
--- NOTE | 2020-04-17 08:26 | RADIOLOGY REPORT (SQ) ---
EXAM DESCRIPTION: KUB/ABDOMEN (SINGLE VIEW) IMAGES COMPLETED DATE/TIME: 04/17/2020 7:57 am REASON FOR STUDY: improvement in gastric bubble versus volvulus COMPARISON: CT abdomen and pelvis 04/11/2020 NUMBER OF VIEWS: One view. TECHNIQUE: Supine radiographic image of the abdomen acquired. LIMITATIONS: None. FINDINGS: BOWEL GAS PATTERN: Patient has a persistent ileus pattern, with air-filled stomach and sma ll bowel in the mid epigastrium. Nasogastric tube tip in the stomach, side port at the GE junction. Rectal air bubble present. CALCIFICATIONS: No suspicious calcifications. SOFT TISSUES: No gross mass or suggestion of organomegaly. HARDWARE: Nasogastric tube tip and side port in the stomach. James catheter in the bladder BONES: No acute fracture. No worrisome bone lesions. OTHER: No other significant finding. IMPRESSION: Persistent ileus pattern TECHNICAL DOCUMENTATION: JOB ID: [id number] 2010 [employer]- All Rights Reserved Reading location - IP/workstation name: [email or web address]
[2020-04-17] MEDS: INSULIN GLARGINE,HUM.REC.ANLOG 1,000 UNIT/10 ML VIAL SUBCUT SCH ×2 (09:45→22:11)
[2020-04-17] MEDS: ASPIRIN 81 MG TABLET, ENT COATED PO SCH (09:45)
[2020-04-17] MEDS: FUROSEMIDE INJ/PF 20 MG/2 ML SDV IV SCH (09:45)
[2020-04-17] MEDS: METHYLPHENIDATE HCL 5 MG TABLET PO SCH ×2 (09:46→14:48)
[2020-04-17] MEDS: METOPROLOL TARTRATE 25 MG TABLET PO SCH ×2 (09:46→22:11)
[2020-04-17] MEDS: PANTOPRAZOLE SODIUM 40 MG VIAL IV SCH (09:46)
[2020-04-17] MEDS: CARBIDOPA/LEVODOPA 10-100 MG TABLET PO SCH (11:42)
--- NOTE | 2020-04-17 12:37 | PDOC CRITICAL CARE PROG REPORT ---
General Date:: 04/17/20 ICU Day:: 6 Ventilator Day:: 6 Hospital Day:: 7 Resuscitation Status: Full Code Medical Power of Director Of Gift Planning: Amber Blandon Events in the past 12 to 24 Hours:: No change in neuro status. Review of systems relevant to events:: Neurological, Pulmonary, orthopedic. Reason for ICU Addmission:: Post respiratorycardiac arrest, Intubated - Medications: Medications reviewed and adjusted accordingly: Yes Vasopressors:: None Sedation:: None Physical Exam Vital Signs: Temp Pulse Resp BP Pulse Ox 98.6 F 95 20 151/68 H 100 04/17/20 08:00 04/17/20 10:00 04/17/20 10:00 04/17/20 10:00 04/17/20 11:45 Intake & Output 04/16/20 04/17/20 04/18/20 06:59 06:59 06:59 Intake Total 1164 1648.0 5 Output Total 2160 1410 60 Balance -996 238.0 -55 Weight 90.1 kg 85.7 kg Weight/Height Weight 85.7 kg Height 6 ft General appearance: PRESENT: no acute distress Head exam: PRESENT: atraumatic, normocephalic Eye exam: PRESENT: PERRLA, other - Opens eyes but not to voice. Sporadicaly. Ear exam: PRESENT: normal external ear exam Mouth exam: PRESENT: moist, tongue midline Respiratory exam: PRESENT: clear to auscultation king. ABSENT: rales, rhonchi, wheezes Cardiovascular exam: PRESENT: RRR, tachycardia. ABSENT: diastolic murmur, rubs, systolic murmur GI/Abdominal exam: PRESENT: distended, soft Rectal exam: PRESENT: deferred Gentrourinary exam: PRESENT: indwelling catheter Extremities exam: PRESENT: other - L BKA. R debridement od heel Musculoskeletal exam: PRESENT: deformity Neurological exam: PRESENT: altered, other - Does not respond to pain. Not to voice. Eyes open occassionaly Skin exam: PRESENT: dry, intact, warm. ABSENT: cyanosis, rash Tubes/Lines: PRESENT: Endotracheal Tube, Arterial Catheter, Nasogastic Tube - 0. Laboratory/Radiographs Laboratory Results: 04/17/20 05:25 04/17/20 05:25 04/16/20 04/16/20 04/17/20 14:30 14:30 05:25 WBC RBC Hgb Hct MCV MCH MCHC RDW Plt Count Seg Neutrophils % Carbonic Acid HCO3/H2CO3 Ratio ABG pH ABG pCO2 ABG pO2 ABG HCO3 ABG O2 Saturation ABG Base Excess FiO2 Sodium 141.7 142.1 Potassium 3.9 3.9 Chloride 113 H 112 H Carbon Dioxide 23 21 L Anion Gap 6 9 BUN 36 H 39 H Creatinine 3.25 H 3.50 H Est GFR ( Amer) 24 L 22 L Glucose 229 H 174 H Calcium 7.7 L 8.0 L Phosphorus 4.6 H 4.6 H Magnesium 2.3 2.5 H Total Bilirubin 0.3 AST 95 H Alkaline Phosphatase 123 Total Protein 5.1 L Albumin 2.5 L Amylase 68 Lipase 34.7 04/17/20 04/17/20 05:25 05:25 WBC 19.3 H RBC 3.22 L Hgb 8.6 L Hct 25.7 L MCV 80 MCH 26.7 L MCHC 33.5 RDW 15.2 H Plt Count 532 H Seg Neutrophils % 76.1 Carbonic Acid 0.85 L HCO3/H2CO3 Ratio 24:1 ABG pH 7.48 H ABG pCO2 28.4 L ABG pO2 98.5 ABG HCO3 20.4 ABG O2 Saturation 97.9 ABG Base Excess -2.6 FiO2 30% Sodium Potassium Chloride Carbon Dioxide Anion Gap BUN Creatinine Est GFR ( Amer) Glucose Calcium Phosphorus Magnesium Total Bilirubin AST Alkaline Phosphatase Total Protein Albumin Amylase Lipase 04/11/20 04/11/20 04/11/20 01:02 01:02 15:35 Creatine Kinase 743 H CK-MB (CK-2) 2.41 Troponin I 0.077 0.261 04/13/20 04/13/20 04/16/20 04:43 04:43 14:30 Creatine Kinase 540 H 213 H CK-MB (CK-2) Troponin I 0.126 Impressions: Foot X-Ray 04/09/20 20:34 IMPRESSION: Findings are consistent with osteomyelitis involving the lateral aspect of the fifth metatarsal base. Associated underlying pathologic fracture deformity. Superimposed foci of soft tissue gas at this site could indicate infection with a gas-forming organism. copyright 2010 [employer]- All Rights Reserved Abdomen/Pelvis CT 04/11/20 00:00 IMPRESSION: NO SIGNIFICANT OR ACUTE PROCESS IN THE ABDOMEN OR PELVIS. Chest CT 04/11/20 00:00 IMPRESSION: MILD CARDIOMEGALY. BILATERAL PLEURAL EFFUSIONS WITH FAINT ATELECT ASIS. NO LOBAR INFILTRATES. Venous Doppler Study 04/14/20 00:00 IMPRESSION: No sonographic evidence of acute DVT within the right lower extremity. Subcutaneous edema. Head CT 04/15/20 05:00 IMPRESSION: NORMAL BRAIN CT WITHOUT CONTRAST. SINUS DISEASE. EVIDENCE OF ACUTE STROKE: NO. Chest X-Ray 04/16/20 06:00 IMPRESSION: Stable chest copyright 2011 [employer]- All Rights Reserved KUB X-Ray 04/17/20 07:01 IMPRESSION: Persistent ileus pattern All labs, radiographs, diagnostic studies and EKGs were personally reviewed: Yes In addition, reports of radiographic and diagnostic studies were read: Yes Assessment and Plan - Diagnosis (1) Brain anoxic injury Is this a current diagnosis for this admission?: Yes Plan: This is the limiting factor right now. He is not responding purposefully. Second day of ritalin and valproic acid. I've spoken to the and sister to explain that if there is no improvement in a few days (2-3) we should consider withdrawal of care. (2) Cardiopulmonary arrest with successful resuscitation Is this a current diagnosis for this admission?: Yes Plan: The exact cause is still not clear. (3) Chronic kidney disease Qualifiers: Chronic kidney disease stage: stage 4 (severe) Qualified Code(s): N18.4 - Chronic kidney disease, stage 4 (severe) Is this a current diagnosis for this admission?: Yes Plan: He is not in need of HD yet. He is however acidotic. 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 Q12 hour insulin increased. (5) Diabetic infection of right foot Is this a current diagnosis for this admission?: Yes Plan: Continue antibiotics. (6) Gas gangrene Is this a current diagnosis for this admission?: Yes Plan: Although this is listed as a dx. Traditionally gas gangrene implies clostrdium pefringens. Here, there is gangrene before the debridement but it was caused by an anearobic strep. Plan Summary: Continue ritalin and valproic acid a few more days but prognosis is not good. Critical Time Critical Time (minutes): 40 Level of Care: ICU Anticipated discharge: Hospice Within: Other -: 1. The care of a critical patient is a dynamic process. This note is a career representative synopsis but static in nature. The timeframe for treatments given in order is not necessarily the actual time these treatments may have been done. 2. This patient requires critical care secondary to ongoing requirements for therapy not offered or safe outside the critical care environment. Transfer to a lower level of care will result in altered life or limb morbidity and mortality. 3. Multidisciplinary rounds completed. 4. ABCDE bundle addressed.
[2020-04-17] MEDS: HYDRALAZINE HCL INJ/PF 20 MG/1 ML SDV IV PRN (17:02)
[2020-04-17] MEDS ORDERED: BISACODYL 10 MG SUPP.RECT PR ONE (21:30)
[2020-04-17] MEDS ORDERED: ALBUMIN HUMAN 250 ML IV ONE (21:30)
[2020-04-17] MEDS: ALBUMIN HUMAN 12.5 GM/50 ML RTUINJ IV SCH (22:09)
[2020-04-17] MEDS: SENNOSIDES/DOCUSATE 8.6-50 MG 1 EACH TABLET NG SCH (22:11)
[2020-04-17] MEDS ORDERED: ALBUMIN HUMAN 500 ML IV ONE (22:32)
[2020-04-18] MEDS: MEROPENEM 500 MG in NORMAL SALINE 50 ML IV SCH ×2 (01:20→13:33)
[2020-04-18] MEDS: INSULIN REG, HUMAN 100 UNIT/ML 3 ML VIAL (PYX) SUBCUT SCH ×6 (03:11→21:35)
[2020-04-18] MEDS: HYDRALAZINE HCL 50 MG TABLET PO SCH ×4 (03:12→21:35)
[2020-04-18 03:46] LABS: ABSOLUTE BASOPHILS # (AUTO) 0.1 10^3/uL (0.0-0.2); ABSOLUTE EOSINOPHILS # (AUTO) 0.1 10^3/uL (0.0-0.6); ABSOLUTE LYMPHOCYTES (AUTO) 2.1 10^3/uL (0.5-4.7); ABSOLUTE MONOCYTES (AUTO) 2.3 10^3/uL (0.1-1.4); ABSOLUTE NEUT (AUTO) 13.5 10^3/uL (1.7-8.2); BASOPHILS % (AUTO) 0.4 % (0-2); EOSINOPHILS % (AUTO) 0.6 % (0-6); HEMATOCRIT 23.4 % (37.9-51.0); LYMPHOCYTES % (AUTO) 11.8 % (13-45); MEAN CORPUSCULAR HEMOGLOBIN 26.3 pg (27.0-33.4); MEAN CORPUSCULAR HGB CONC 33.2 g/dL (32.0-36.0); MEAN CORPUSCULAR VOLUME 79 fl (80-97); MONOCYTES % (AUTO) 12.9 % (3-13); PLATELET COUNT 537 10^3/uL (150-450); RED BLOOD COUNT 2.94 10^6/uL (4.35-5.55); RED CELL DISTRIBUTION WIDTH 15.3 % (11.5-14.0); SEGMENTED NEUTROPHILS % (AUTO) 74.3 % (42-78); TOTAL CELLS COUNTED % (AUTO) 100 %; WHITE BLOOD COUNT 18.2 10^3/uL (4.0-10.5)
[2020-04-18 03:47] LABS: HEMOGLOBIN 7.8 g/dL (13.5-17.0)
[2020-04-18 04:02] LABS: ANION GAP 10 (5-19); BLOOD UREA NITROGEN 40 mg/dL (7-20); CALCIUM 7.9 mg/dL (8.4-10.2); CARBON DIOXIDE 20 mmol/L (22-30); CHLORIDE 112 mmol/L (98-107); GLUCOSE 203 mg/dL (75-110); POTASSIUM 3.9 mmol/L (3.6-5.0)
[2020-04-18] MEDS: AMLODIPINE BESYLATE 5 MG TABLET PO SCH ×2 (06:05→18:36)
[2020-04-18] MEDS: ALBUMIN HUMAN 12.5 GM/50 ML RTUINJ IV SCH ×3 (06:06→21:33)
[2020-04-18] MEDS: HEPARIN SOD (PORCINE) 5,000 UNIT/ML 1 ML VIAL SUBCUT SCH ×3 (06:06→21:34)
[2020-04-18] MEDS: PANTOPRAZOLE SODIUM 40 MG VIAL IV SCH (09:28)
[2020-04-18] MEDS: METHYLPHENIDATE HCL 5 MG TABLET PO SCH ×2 (09:29→13:34)
[2020-04-18] MEDS: METOPROLOL TARTRATE 25 MG TABLET PO SCH ×2 (09:29→21:34)
[2020-04-18] MEDS: SENNOSIDES/DOCUSATE 8.6-50 MG 1 EACH TABLET NG SCH ×2 (09:29→21:35)
[2020-04-18] MEDS: ASPIRIN 81 MG TABLET, ENT COATED PO SCH (09:29)
[2020-04-18] MEDS: INSULIN GLARGINE,HUM.REC.ANLOG 1,000 UNIT/10 ML VIAL SUBCUT SCH ×2 (09:30→21:34)
[2020-04-18] MEDS: SCOPOLAMINE HYDROBROMIDE 1.5 MG PATCH.TD72 TD SCH (09:30)
[2020-04-18] MEDS: CARBIDOPA/LEVODOPA 10-100 MG TABLET PO SCH (09:32)
[2020-04-18] MEDS ORDERED: BISACODYL 10 MG SUPP.RECT PR SCH (10:00)
[2020-04-18] MEDS ORDERED: BISACODYL 10 MG SUPP.RECT PR ONE (11:06)
--- NOTE | 2020-04-18 11:06 | PDOC CRITICAL CARE PROG REPORT ---
General Date:: 04/18/20 ICU Day:: 7 Ventilator Day:: 7 Hospital Day:: 8 Resuscitation Status: Full Code Medical Power of Defect Cutter: Amber Blandon Events in the past 12 to 24 Hours:: No improvement in neurological status. Review of systems relevant to events:: Neurological. Reason for ICU Addmission:: Post respiratorycardiac arrest, Intubated - Medications: Medications reviewed and adjusted accordingly: Yes Vasopressors:: None Sedation:: None Physical Exam Vital Signs: Temp Pulse Resp BP Pulse Ox 98.0 F 97 23 H 157/69 H 100 04/18/20 08:00 04/18/20 10:00 04/18/20 10:00 04/18/20 10:00 04/18/20 10:00 Intake & Output 04/17/20 04/18/20 04/19/20 06:59 06:59 06:59 Intake Total 1648.0 405 50 Output Total 1410 1196 25 Balance 238.0 -791 25 Weight 85.7 kg 86.8 kg Weight/Height Weight 86.8 kg Height 6 ft General appearance: PRESENT: no acute distress Head exam: PRESENT: atraumatic, normocephalic Eye exam: PRESENT: other - Opens eyes but does not track. Ear exam: PRESENT: normal external ear exam Mouth exam: PRESENT: moist, tongue midline Respiratory exam: PRESENT: clear to auscultation king. ABSENT: rales, rhonchi, wheezes Cardiovascular exam: PRESENT: RRR, tachycardia. ABSENT: diastolic murmur, rubs, systolic murmur GI/Abdominal exam: PRESENT: distended, normal bowel sounds, soft. ABSENT: guarding, mass, organolmegaly, rebound, tenderness Rectal exam: PRESENT: deferred Gentrourinary exam: PRESENT: indwelling catheter Extremities exam: PRESENT: other - R BKA, L heel debridement site. Neurological exam: PRESENT: altered, other - Neurologically not intact. Skin exam: PRESENT: dry, intact, warm. ABSENT: cyanosis, rash Tubes/Lines: PRESENT: Endotracheal Tube, Nasogastic Tube Laboratory/Radiographs Laboratory Results: 04/18/20 03:35 04/18/20 03:35 04/18/20 04/18/20 03:35 03:35 WBC 18.2 H RBC 2.94 L Hgb 7.8 L Hct 23.4 L MCV 79 L MCH 26.3 L MCHC 33.2 RDW 15.3 H Plt Count 537 H Seg Neutrophils % 74.3 Sodium 141.6 Potassium 3.9 Chloride 112 H Carbon Dioxide 20 L Anion Gap 10 BUN 40 H Creatinine 3.02 H Est GFR ( Amer) 26 L Glucose 203 H Calcium 7.9 L 04/13/20 06:37 Blood Blood Culture - Final NO GROWTH IN 5 DAYS 04/13/20 04:43 Blood Blood Culture - Final NO GROWTH IN 5 DAYS 04/15/20 05:38 Tracheal Aspirate Gram Stain - Final 04/15/20 05:38 Tracheal Aspirate Sputum Culture - Final C.albicans/C.dubliniensis Greatly Reduced Normal [place]ike 04/11/20 04/11/20 04/11/20 01:02 01:02 15:35 Creatine Kinase 743 H CK-MB (CK-2) 2.41 Troponin I 0.077 0.261 04/13/20 04/13/20 04/16/20 04:43 04:43 14:30 Creatine Kinase 540 H 213 H CK-MB (CK-2) Troponin I 0.126 Impressions: Foot X-Ray 04/09/20 20:34 IMPRESSION: Findings are consistent with osteomyelitis involving the lateral aspect of the fifth metatarsal base. Associated underlying pathologic fracture deformity. Superimposed foci of soft tissue gas at this site could indicate infection with a gas-forming organism. copyright 2010 [employer]- All Rights Reserved Abdomen/Pelvis CT 04/11/20 00:00 IMPRESSION: NO SIGNIFICANT OR ACUTE PROCESS IN THE ABDOMEN OR PELVIS. Chest CT 04/11/20 00:00 IMPRESSION: MILD CARDIOMEGALY. BILATERAL PLEURAL EFFUSIONS WITH FAINT ATELECTASIS. NO LOBAR INFILTRATES. Venous Doppler Study 04/14/20 00:00 IMPRESSION: No sonographic evidence of acute DVT within the right lower extremity. Subcutaneous edema. Head CT 04/15/20 05:00 IMPRESSION: NORMAL BRAIN CT WITHOUT CONTRAST. SINUS DISEASE. EVIDENCE OF ACUTE STROKE: NO. Chest X-Ray 04/16/20 06:00 IMPRESSION: Stable chest copyright 2010 [employer]- All Rights Reserved KUB X-Ray 04/17/20 07:01 IMPRESSION: Persistent ileus pattern All labs, radiographs, diagnostic studies and EKGs were personally reviewed: Yes In addition, reports of radiographic and diagnostic studies were read: Yes Assessment and Plan - Diagnosis (1) Brain anoxic injury Is this a current diagnosis for this admission?: Yes Plan: He is not improving with valproic acid and ritalin (2) Cardiopulmonary arrest with successful resuscitation Is this a current diagnosis for this admission?: Yes Plan: The reason for his anoxic injury. (3) Chronic kidney disease Qualifiers: Chronic kidney disease stage: stage 4 (severe) Qualified Code(s): N18.4 - Chronic kidney disease, stage 4 (severe) Is this a current diagnosis for this admission?: Yes Plan: Not on HD yet. James replaced for urine output. (4) Diabetes Qualifiers: Diabetes mellitus type: type 1 Diabetes mellitus complication status: with circulatory complication Diabetes mellitus complication detail: with peripheral angiopathy with gangrene Qualified Code(s): E10.52 - Type 1 diabetes mellitus with diabetic peripheral angiopathy with gangrene Is this a current diagnosis for this admission?: Yes Plan: Controlled (5) Diabetic infection of right foot Is this a current diagnosis for this admission?: Yes Plan: Debrided and stable for now. (6) Ileus Is this a current diagnosis for this admission?: Yes Plan: This is present but mild as a consequence of narcotics and immobility. CT of abd on 04/11 showed no worrisome intra-abdominal findings. Some results from ducolax, try again, fentanyl stopped. Plan Summary: If no improvement in a few days talk to about withdrawal of care. Critical Time Critical Time (minutes): 35 Level of Care: ICU Anticipated discharge: Hospice Within: Other -: 1. The care of a critical patient is a dynamic process. This note is a sales representative graphic art synopsis but static in nature. The timeframe for treatments give n in order is not necessarily the actual time these treatments may have been done. 2. This patient requires critical care secondary to ongoing requirements for therapy not offered or safe outside the critical care environment. Transfer to a lower level of care will result in altered life or limb morbidity and mortality. 3. Multidisciplinary rounds completed. 4. ABCDE bundle addressed.
[2020-04-18] MEDS ORDERED: METOCLOPRAMIDE HCL INJ/PF 10 MG/2 ML SDV ONE (18:29)
[2020-04-18] MEDS: NORMAL SALINE IV SCH (18:36)
[2020-04-18] MEDS: DAPTOMYCIN IV SCH (18:36)
[2020-04-18] MEDS: METOCLOPRAMIDE HCL INJ/PF 10 MG/2 ML SDV IV SCH (18:40)
[2020-04-18] MEDS: HYDRALAZINE HCL INJ/PF 20 MG/1 ML SDV IV PRN (18:45)
[2020-04-19] MEDS: MEROPENEM 500 MG in NORMAL SALINE 50 ML IV SCH ×2 (01:24→13:59)
[2020-04-19] MEDS: METOCLOPRAMIDE HCL INJ/PF 10 MG/2 ML SDV IV SCH ×4 (01:24→18:37)
[2020-04-19] MEDS: INSULIN REG, HUMAN 100 UNIT/ML 3 ML VIAL (PYX) SUBCUT SCH ×6 (01:31→22:13)
[2020-04-19] MEDS ORDERED: LABETALOL HCL INJ 20 MG/4 ML DISP.SYRIN IV ONE (04:27)
[2020-04-19 05:27] LABS: HEMATOCRIT 21.5 % (37.9-51.0); MEAN CORPUSCULAR HEMOGLOBIN 26.8 pg (27.0-33.4); MEAN CORPUSCULAR HGB CONC 33.8 g/dL (32.0-36.0); MEAN CORPUSCULAR VOLUME 79 fl (80-97); PLATELET COUNT 601 10^3/uL (150-450); RED BLOOD COUNT 2.72 10^6/uL (4.35-5.55); RED CELL DISTRIBUTION WIDTH 15.4 % (11.5-14.0)
[2020-04-19 05:44] LABS: ANION GAP 8 (5-19); BLOOD UREA NITROGEN 41 mg/dL (7-20); CARBON DIOXIDE 22 mmol/L (22-30); CHLORIDE 113 mmol/L (98-107); GLUCOSE 127 mg/dL (75-110); POTASSIUM 3.3 mmol/L (3.6-5.0)
[2020-04-19] MEDS: ALBUMIN HUMAN 12.5 GM/50 ML RTUINJ IV SCH ×2 (06:11→13:58)
[2020-04-19] MEDS: HEPARIN SOD (PORCINE) 5,000 UNIT/ML 1 ML VIAL SUBCUT SCH ×3 (06:11→22:15)
[2020-04-19] MEDS: HYDRALAZINE HCL 50 MG TABLET PO SCH ×4 (06:12→22:14)
[2020-04-19] MEDS: AMLODIPINE BESYLATE 5 MG TABLET PO SCH ×2 (06:12→18:36)
[2020-04-19 06:13] LABS: HEMOGLOBIN 7.3 g/dL (13.5-17.0)
[2020-04-19 06:15] LABS: ABSOLUTE LYMPHOCYTES# (MANUAL) 2.1 10^3/uL (0.5-4.7); ABSOLUTE MONOCYTES # (MANUAL) 1.5 10^3/uL (0.1-1.4); BASOPHILS % (MANUAL) 0 % (0-2); EOSINOPHILS % (MANUAL) 0 % (0-6); LYMPHOCYTES % (MANUAL) 10 % (13-45); MONOCYTES % (MANUAL) 7 % (3-13); SEGMENTED NEUTROPHILS % (MAN) 83 % (42-78); TOTAL CELLS COUNTED 100
[2020-04-19 06:16] LABS: ANISOCYTOSIS SLIGHT; HYPOCHROMASIA SLIGHT; OVALOCYTES SLIGHT; PLATELET COMMENT INCREASED; POIKILOCYTOSIS SLIGHT
[2020-04-19] MEDS: PANTOPRAZOLE SODIUM 40 MG VIAL IV SCH (09:56)
[2020-04-19] MEDS: METOPROLOL TARTRATE 25 MG TABLET PO SCH ×2 (09:56→22:14)
[2020-04-19] MEDS: ASPIRIN 81 MG TABLET, ENT COATED PO SCH (09:56)
[2020-04-19] MEDS: SENNOSIDES/DOCUSATE 8.6-50 MG 1 EACH TABLET NG SCH ×2 (09:56→22:15)
[2020-04-19] MEDS: INSULIN GLARGINE,HUM.REC.ANLOG 1,000 UNIT/10 ML VIAL SUBCUT SCH ×2 (09:57→22:13)
[2020-04-19] MEDS: CARBIDOPA/LEVODOPA 10-100 MG TABLET PO SCH (10:13)
[2020-04-19] MEDS: METHYLPHENIDATE HCL 5 MG TABLET PO SCH ×2 (10:13→14:02)
[2020-04-19] MEDS ORDERED: FENTANYL CITRATE INJ/PF 100 MCG/2 ML AMPUL ONE (10:26)
[2020-04-19] MEDS: FENTANYL CITRATE INJ/PF 100 MCG/2 ML AMPUL IV PRN ×3 (10:35→18:37)
[2020-04-19] MEDS ORDERED: FUROSEMIDE INJ/PF 40 MG/4 ML SDV IV ONE (13:49)
[2020-04-19] MEDS ORDERED: FUROSEMIDE INJ/PF 100 MG/10 ML SDV ONE (13:51)
[2020-04-19] MEDS ORDERED: FUROSEMIDE INJ/PF 100 MG/10 ML SDV IV ONE (14:00)
[2020-04-19] MEDS ORDERED: ROCURONIUM BROMIDE INJ 50 MG/5 ML VIAL IV ONE ×2 (15:23→16:30)
--- NOTE | 2020-04-19 17:52 | PDOC CRITICAL CARE PROG REPORT ---
General Date:: 04/19/20 ICU Day:: 8 Ventilator Day:: 8 Hospital Day:: 9 Resuscitation Status: Full Code Medical Power of Residential Green Building Designer: Amber Events in the past 12 to 24 Hours:: No improvement in neurological status. 04/19: Opens eyes to voice. Does not clearly follow commands. Remains intubated. Hiccups today. Grossly edematous. Review of systems relevant to events:: Neurological. Reason for ICU Addmission:: Post respiratorycardiac arrest, Intubated - Medications: Medications reviewed and adjusted accordingly: Yes Physical Exam Vital Signs: Temp Pulse Resp BP Pulse Ox 100.0 F 87 14 156/62 H 97 04/19/20 08:00 04/19/20 10:00 04/19/20 05:00 04/18/20 18:00 04/19/20 12:00 Intake & Output 04/18/20 04/19/20 04/20/20 06:59 06:59 06:59 Intake Total 405 250 50 Output Total 1196 500 100 Balance -791 -250 -50 Weight 86.8 kg 84.9 kg Weight/Height Weight 84.9 kg Height 1.83 m General appearance: PRESENT: no acute distress, well-developed, well-nourished Head exam: PRESENT: atraumatic, normocephalic Mouth exam: PRESENT: moist, tongue midline Neck exam: ABSENT: carotid bruit, JVD, lymphadenopathy, thyromegaly Respiratory exam: PRESENT: clear to auscultation king. ABSENT: rales, rhonchi, wheezes Cardiovascular exam: PRESENT: RRR. ABSENT: diastolic murmur, rubs, systolic murmur GI/Abdominal exam: PRESENT: normal bowel sounds, soft. ABSENT: distended, guarding, mass, organolmegaly, rebound, tenderness Extremities exam: PRESENT: full ROM, pedal edema, +2 edema. ABSENT: calf tenderness, clubbing Neurological exam: PRESENT: other - Opens eyes to voice. Does not follow commands. Skin exam: PRESENT: dry, intact, warm. ABSENT: cyanosis, rash Tubes/Lines: PRESENT: Endotracheal Tube Laboratory/Radiographs Laboratory Results: 04/19/20 04:50 04/19/20 04:50 04/19/20 04/19/20 04:50 04:50 WBC 21.0 H RBC 2.72 L Hgb 7.3 L Hct 21.5 L MCV 79 L MCH 26.8 L MCHC 33.8 RDW 15.4 H Plt Count 601 H Seg Neutrophils % Not Reportable Sodium 143.0 Potassium 3.3 L Chloride 113 H Carbon Dioxide 22 Anion Gap 8 BUN 41 H Creatinine 3.31 H Est GFR ( Amer) 23 L Glucose 127 H Calcium 8.0 L 04/11/20 04/11/20 04/11/20 01:02 01:02 15:35 Creatine Kinase 743 H CK-MB (CK-2) 2.41 Troponin I 0.077 0.261 04/13/20 04/13/20 04/16/20 04:43 04:43 14:30 Creatine Kinase 540 H 213 H CK-MB (CK-2) Troponin I 0.126 Impressions: Foot X-Ray 04/09/20 20:34 IMPRESSION: Findings are consistent with osteomyelitis involving the lateral aspect of the fifth metatarsal base. Associated underlying pathologic fracture deformity. Superimposed foci of soft tissue gas at this site could indicate infection with a gas-forming organism. copyright 2010 [employer]- All Rights Reserved Abdomen/Pelvis CT 04/11/20 00:00 IMPRESSION: NO SIGNIFICANT OR ACUTE PROCESS IN THE ABDOMEN OR PELVIS. Chest CT 04/11/20 00:00 IMPRESSION: MILD CARDIOMEGALY. BILATERAL PLEURAL EFFUSIONS WITH FAINT ATELECTASIS. NO LOBAR INFILTRATES. Venous Doppler Study 04/14/20 00:00 IMPRESSION: No sonographic evidence of acute DVT within the right lower extremity. Subcutaneous edema. Head CT 04/15/20 05:00 IMPRESSION: NORMAL BRAIN CT WITHOUT CONTRAST. SINUS DISEASE. EVIDENCE OF ACUTE STROKE: NO. Chest X-Ray 04/16/20 06:00 IMPRESSION: Stable chest copyright 2010 [employer]- All Rights Reserved KUB X-Ray 04/17/20 07:01 IMPRESSION: Persistent ileus pattern All labs, radiographs, diagnostic studies and EKGs were personally reviewed: Yes In addition, reports of radiographic and diagnostic studies were read: Yes Assessment and Plan - Diagnosis (1) Acute respiratory failure with hypoxia and hypercapnia Is this a current diagnosis for this admission?: Yes Plan: Titrate vent settings based on ABG results. Add intermittent fentanyl. (2) Acute on chronic renal failure Qualifiers: Acute renal failure type: with acute tubular necrosis Chronic kidney disease stage: stage 4 (severe) Qualified Code(s): N17.0 - Acute kidney failure with tubular necrosis; N18.4 - Chronic kidney disease, stage 4 (severe) Is this a current diagnosis for this admission?: Yes Plan: Stop albumin infusions. Check CMP in am. Furosemide 80 mg IV single dose. May repeat again at 0000 tonight. (3) Hypokalemia Is this a current diagnosis for this admission?: Yes Plan: Replete. (4) Brain anoxic injury Is this a current diagnosis for this admission?: Yes Plan: On valproic acid and methylphenidate. Continue neurological monitoring. (5) Diabetic infection of right foot Is this a current diagnosis for this admission?: Yes Plan: Debrided and stable for now. On meropenem/daptomycin. (6) Microcytic anemia Is this a current diagnosis for this admission?: Yes Plan: Hgb 7.3 today. Check CBC in am. (7) Thrombocytosis Is this a current diagnosis for this admission?: Yes Plan: Start SCDs for DVT prophylaxis. Critical Time Critical Time (minutes): 60 Level of Care: ICU -: 1. The care of a critical patient is a dynamic process. This note is a enrollment representative synopsis but static in nature. The timeframe for treatments given in order is not necessarily the actual time these treatments may have been done. 2. This patient requires critical care secondary to ongoing requirements for therapy not offered or safe outside the critical care environment. Transfer to a lower level of care will result in altered life or limb morbidity and mortality. 3. Multidisciplinary rounds completed. 4. ABCDE bundle addressed.
[2020-04-19] MEDS: POTASSIUM CHLORIDE 20 MEQ PACKET GT SCH ×2 (18:36→22:15)
[2020-04-20] MEDS ORDERED: FUROSEMIDE INJ/PF 40 MG/4 ML SDV IV ONE
[2020-04-20] MEDS: MEROPENEM 500 MG in NORMAL SALINE 50 ML IV SCH (01:28)
[2020-04-20] MEDS: METOCLOPRAMIDE HCL INJ/PF 10 MG/2 ML SDV IV SCH ×5 (01:30→23:13)
[2020-04-20] MEDS: INSULIN REG, HUMAN 100 UNIT/ML 3 ML VIAL (PYX) SUBCUT SCH ×6 (01:31→22:38)
[2020-04-20] MEDS: HYDRALAZINE HCL 50 MG TABLET PO SCH ×4 (03:11→22:40)
[2020-04-20 05:02] LABS: ARTERIAL BLOOD BASE EXCESS -1.2 mmol/L; ARTERIAL BLOOD H2CO3 0.92 mmol/L (1.05-1.35); ARTERIAL BLOOD HCO3 21.8 mmol/L (20-24); ARTERIAL BLOOD PCO2 30.7 mmHg (35-45); ARTERIAL BLOOD PH 7.47 (7.35-7.45); ARTERIAL BLOOD PO2 68.9 mmHg (80-100); ARTERIAL BLOOD TOTAL CO2 22.7 mmol/L (23-27)
[2020-04-20 05:03] LABS: ARTERIAL BLOOD FIO2 28%
[2020-04-20 05:04] LABS: HEMATOCRIT 21.8 % (37.9-51.0); MEAN CORPUSCULAR HEMOGLOBIN 26.2 pg (27.0-33.4); MEAN CORPUSCULAR HGB CONC 32.8 g/dL (32.0-36.0); MEAN CORPUSCULAR VOLUME 80 fl (80-97); PLATELET COUNT 643 10^3/uL (150-450); RED BLOOD COUNT 2.74 10^6/uL (4.35-5.55); RED CELL DISTRIBUTION WIDTH 15.6 % (11.5-14.0); WHITE BLOOD COUNT 24.2 10^3/uL (4.0-10.5)
[2020-04-20 05:23] LABS: ALBUMIN 2.8 g/dL (3.5-5.0); ALKALINE PHOSPHATASE 86 U/L (38-126); ANION GAP 7 (5-19); ASPARTATE AMINO TRANSFERASE 53 U/L (17-59); BILIRUBIN,DIRECT 0.1 mg/dL (0.0-0.4); BILIRUBIN,TOTAL 0.4 mg/dL (0.2-1.3); BLOOD UREA NITROGEN 41 mg/dL (7-20); CALCIUM 8.4 mg/dL (8.4-10.2); CARBON DIOXIDE 23 mmol/L (22-30); CHLORIDE 115 mmol/L (98-107); GLUCOSE 187 mg/dL (75-110); PHOSPHORUS 4.7 mg/dL (2.5-4.5); POTASSIUM 4.2 mmol/L (3.6-5.0); TOTAL PROTEIN 5.6 g/dL (6.3-8.2)
[2020-04-20 05:33] LABS: HEMOGLOBIN 7.2 g/dL (13.5-17.0)
[2020-04-20] MEDS: AMLODIPINE BESYLATE 5 MG TABLET PO SCH ×2 (05:33→18:01)
[2020-04-20] MEDS: HEPARIN SOD (PORCINE) 5,000 UNIT/ML 1 ML VIAL SUBCUT SCH ×3 (05:34→22:40)
[2020-04-20 05:46] LABS: ABSOLUTE LYMPHOCYTES# (MANUAL) 2.7 10^3/uL (0.5-4.7); ABSOLUTE MONOCYTES # (MANUAL) 1.7 10^3/uL (0.1-1.4); BAND NEUTROPHILS % (MANUAL) 1 % (3-5); BASOPHILS % (MANUAL) 0 % (0-2); EOSINOPHILS % (MANUAL) 1 % (0-6); LYMPHOCYTES % (MANUAL) 11 % (13-45); MONOCYTES % (MANUAL) 7 % (3-13); SEGMENTED NEUTROPHILS % (MAN) 80 % (42-78); TOTAL CELLS COUNTED 100
[2020-04-20 05:47] LABS: TOXIC GRANULATION 1+
[2020-04-20 05:48] LABS: ANISOCYTOSIS SLIGHT; HYPOCHROMASIA SLIGHT; PLATELET COMMENT INCREASED; POLYCHROMASIA SLIGHT; SCHISTOCYTES SLIGHT; TOXIC VACUOLATION PRESENT
--- NOTE | 2020-04-20 06:28 | RADIOLOGY REPORT (SQ) ---
EXAM DESCRIPTION: XR CHEST 1 VIEW COMPLETED DATE/TME: 04/20/2020 05:00 CLINICAL HISTORY: 59 years, Male, ETT tube COMPARISON: 04/16/2020 NUMBER OF VIEWS: One TECHNIQUE: AP view of the chest LIMITATIONS: None. FINDINGS: The right IJ line has been removed. The endotracheal and nasogastric tubes remain in satisfactory position. The lungs are clear. The heart remains enlarged. There is is no pneumothorax or pleural effusion. The bones are unchanged. IMPRESSION: Removal of the right IJ central line. Otherwise, no significant change compared to the prior exam. copyright 2010 [employer]- All Rights Reserved
[2020-04-20] MEDS: METHYLPHENIDATE HCL 5 MG TABLET PO SCH ×2 (09:03→13:30)
[2020-04-20] MEDS: ASPIRIN 81 MG TABLET, ENT COATED PO SCH (09:03)
[2020-04-20] MEDS: METOPROLOL TARTRATE 25 MG TABLET PO SCH ×2 (09:03→22:40)
[2020-04-20] MEDS: SENNOSIDES/DOCUSATE 8.6-50 MG 1 EACH TABLET NG SCH ×2 (09:03→22:40)
[2020-04-20] MEDS: PANTOPRAZOLE SODIUM 40 MG VIAL IV SCH (09:03)
[2020-04-20] MEDS: CARBIDOPA/LEVODOPA 10-100 MG TABLET PO SCH (09:08)
[2020-04-20] MEDS ORDERED: FLUCONAZOLE 400 MG/NS RTU 400 MG/200 ML RTUPB IV ONE (09:40)
[2020-04-20] MEDS: INSULIN GLARGINE,HUM.REC.ANLOG 1,000 UNIT/10 ML VIAL SUBCUT SCH ×2 (12:46→22:39)
--- NOTE | 2020-04-20 13:35 | PDOC CRITICAL CARE PROG REPORT ---
General Date:: 04/20/20 ICU Day:: 9 Ventilator Day:: 9 Hospital Day:: 10 Resuscitation Status: Full Code Medical Power of Oil Field Technician: Amber Events in the past 12 to 24 Hours:: No improvement in neurological status. 04/19: Opens eyes to voice. Does not clearly follow commands. Remains intubated. Hiccups today. Grossly edematous. 04/20: Significant change in neurological status. Remains intubated. Hiccuping again. Has not been getting as needed fentanyl. Still grossly edematous. Got 2 doses of furosemide yesterday. I/oh -200 mL yesterday. Creatinine 3.3>3.7. WBC 21>24.2, 1% bands. Platelet 601>643. Fever 100.4. Trach aspirate 04/15: 4+ PMNs, rare gram-positive cocci in pairs, isolating Isamar albicans/Isamar dubliniensis). On meropenem/daptomycin for polymicrobial infection of the foot. Not on DVT chemoprophylaxis due to recent surgery. GI PROPHYLAXIS: Protonix. Review of systems relevant to events:: Neurological. Reason for ICU Addmission:: Post respiratorycardiac arrest, Intubated - Medications: Medications reviewed and adjusted accordingly: Yes Physical Exam Vital Signs: Temp Pulse Resp BP Pulse Ox 100.4 F 101 H 20 128/53 H 93 04/20/20 08:00 04/20/20 08:00 04/20/20 08:00 04/20/20 08:00 04/20/20 08:00 Intake & Output 04/19/20 04/20/20 04/21/20 06:59 06:59 06:59 Intake Total 300 1557 Output Total 500 1525 250 Balance -200 32 -250 Weight 84.9 kg 81.5 kg Weight/Height Weight 81.5 kg Height 1.83 m General appearance: PRESENT: no acute distress, well-developed, well-nourished Head exam: PRESENT: atraumatic, normocephalic Mouth exam: PRESENT: moist, tongue midline, other - Multiple loose and enucleating teeth. Copious purulent drainage from the oral cavity. Neck exam: ABSENT: carotid bruit, JVD, lymphadenopathy, thyromegaly Respiratory exam: PRESENT: clear to auscultation king. ABSENT: rales, rhonchi, wheezes Cardiovascular exam: PRESENT: RRR. ABSENT: diastolic murmur, rubs, systolic murmur GI/Abdominal exam: PRESENT: normal bowel sounds, soft. ABSENT: distended, guarding, mass, organolmegaly, rebound, tenderness Extremities exam: PRESENT: pedal edema, other - Right foot bandaged. Left AKA.. ABSENT: calf tenderness, clubbing Neurological exam: PRESENT: altered, CN II-XII grossly intact Tubes/Lines: PRESENT: Endotracheal Tube Laboratory/Radiographs Laboratory Results: 04/20/20 04:59 04/20/20 04:59 04/20/20 04/20/20 04/20/20 04:59 04:59 04:59 WBC 24.2 H RBC 2.74 L Hgb 7.2 L Hct 21.8 L MCV 80 MCH 26.2 L MCHC 32.8 RDW 15.6 H Plt Count 643 H Seg Neutrophils % Not Reportable Carbonic Acid 0.92 L HCO3/H2CO3 Ratio 23:1 ABG pH 7.47 H ABG pCO2 30.7 L ABG pO2 68.9 L ABG HCO3 21.8 ABG O2 Saturation 95.0 ABG Base Excess -1.2 FiO2 28% Sodium 144.8 Potassium 4.2 Chloride 115 H Carbon Dioxide 23 Anion Gap 7 BUN 41 H Creatinine 3.69 H Est GFR ( Amer) 21 L Glucose 187 H Calcium 8.4 Phosphorus 4.7 H Magnesium 2.6 H Total Bilirubin 0.4 AST 53 Alkaline Phosphatase 86 Total Protein 5.6 L Albumin 2.8 L 04/11/20 04/11/20 04/11/20 01:02 01:02 15:35 Creatine Kinase 743 H CK-MB (CK-2) 2.41 Troponin I 0.077 0.261 04/13/20 04/13/20 04/16/20 04:43 04:43 14:30 Creatine Kinase 540 H 213 H CK-MB (CK-2) Troponin I 0.126 Impressions: Foot X-Ray 04/09/20 20:34 IMPRESSION: Findings are consistent with osteomyelitis involving the lateral aspect of the fifth metatarsal base. Associated underlying pathologic fracture deformity. Superimposed foci of soft tissue gas at this site could indicate infection with a gas-forming organism. copyright 2010 [employer]- All Rights Reserved Abdomen/Pelvis CT 04/11/20 00:00 IMPRESSION: NO SIGNIFICANT OR ACUTE PROCESS IN THE ABDOMEN OR PELVIS. Chest CT 04/11/20 00:00 IMPRESSION: MILD CARDIOMEGALY. BILATERAL PLEURAL EFFUSIONS WITH FAINT ATELECTASIS. NO LOBAR INFILTRATES. Venous Doppler Study 04/14/20 00:00 IMPRESSION: No sonographic evidence of acute DVT within the right lower extremity. Subcutaneous edema. Head CT 04/15/20 05:00 IMPRESSION: NORMAL BRAIN CT WITHOUT CONTRAST. SINUS DISEASE. EVIDENCE OF ACUTE STROKE: NO. KUB X-Ray 04/17/20 07:01 IMPRESSION: Persistent ileus pattern Chest X-Ray 04/20/20 05:00 IMPRESSION: Removal of the right IJ central line. Otherwise, no significant change compared to the prior exam. copyright 2011 [employer]- All Rights Reserved All labs, radiographs, diagnostic studies and EKGs were personally reviewed: Yes In addition, reports of radiographic and diagnostic studies were read: Yes Assessment and Plan - Diagnosis (1) Acute respiratory failure with hypoxia and hypercapnia Is this a current diagnosis for this admission?: Yes Plan: Titrate vent settings based on ABG results. Change fentanyl to morphine infusion. (2) Acute on chronic renal failure Qualifiers: Acute renal failure type: with acute tubular necrosis Chronic kidney disease stage: stage 4 (severe) Qualified Code(s): N17.0 - Acute kidney failure with tubular necrosis; N18.4 - Chronic kidney disease, stage 4 (severe) Is this a current diagnosis for this admission?: Yes Plan: Monitor urine output. Monitor serum creatinine. (3) Hypokalemia Is this a current diagnosis for this admission?: Yes Plan: Replete. (4) Brain anoxic injury Is this a current diagnosis for this admission?: Yes Plan: On valproic acid and methylphenidate. Continue neurological monitoring. (5) Diabetic infection of right foot Is this a current diagnosis for this admission?: Yes Plan: Debrided and stable for now. On meropenem/daptomycin. In light of Isamar growing out of trach aspirate (and the absence of normal юлия), will add empiric fluconazole. (6) Microcytic anemia Is this a current diagnosis for this admission?: Yes (7) Thrombocytosis Is this a current diagnosis for this admission?: Yes Plan: Ultrasound bilateral lower extremities to rule out DVT. Critical Time Critical Time (minutes): 60 Level of Care: ICU -: 1. The care of a critical patient is a dynamic process. This note is a service center representative synopsis but static in nature. The timeframe for treatments given in order is not necessarily the actual time these treatments may have been done. 2. This patient requires critical care secondary to ongoing requirements for therapy not offered or safe outside the critical care environment. Transfer to a lower level of care will result in altered life or limb morbidity and mortality. 3. Multidisciplinary rounds completed. 4. ABCDE bundle addressed.
[2020-04-20] MEDS: MORPHINE SULFATE 60 MG/60 ML RTUINJ IV PRN (14:57)
--- NOTE | 2020-04-20 15:23 | RADIOLOGY REPORT (SQ) ---
EXAM DESCRIPTION: VENOUS BILATERAL LOWER IMAGES COMPLETED DATE/TIME: 04/20/2020 3:02 pm REASON FOR STUDY: fever, edema, DVT COMPARISON: None. TECHNIQUE: Dynamic and static garcia scale and color images acquired of both lower extremity venous sy stems. Selected spectral images acquired with additional compression and augmentation maneuvers. Imag es stored on PACS. LIMITATIONS: None. FINDINGS: RIGHT LEG COMMON FEMORAL AND FEMORAL: Normal phasicity, compression and augmentation. No visualized echogenic m aterial on garcia scale. No defects on color images. POPLITEAL: Normal compression and augmentation. No visualized echogenic material on garcia scale. No de fects on color images. CALF VESSELS: Normal compression and augmentation. No visualized echogenic material on garcia scale. No defects on color image. GSV AND SSV: Normal compression. No visualized echogenic material on garcia scale. No defects on color images. ANY DEEP VENOUS INSUFFICIENCY: No. ANY EVIDENCE OF POPLITEAL CYST: No. OTHER: No other significant finding. LEFT LEG ABOVE THE KNEE AMPUTATION. COMMON FEMORAL AND FEMORAL: Normal phasicity, compression and augmentation. No visualized echogenic m aterial on garcia scale. No defects on color images. GSV AND SSV: Normal compression. No visualized echogenic material on garcia scale. No defects on color images. ANY DEEP VENOUS INSUFFICIENCY: No. ANY EVIDENCE POPLITEAL CYST: No. OTHER: No other significant finding. IMPRESSION: NO EVIDENCE DVT OR SVT IN EITHER LEG. TECHNICAL DOCUMENTATION: JOB ID: [id number] 2010 [employer]- All Rights Reserved Reading location - IP/workstation name: [email or web address]
[2020-04-20] MEDS: DAPTOMYCIN IV SCH (17:56)
[2020-04-20] MEDS: NORMAL SALINE IV SCH (17:56)
[2020-04-20] MEDS: ACETAMINOPHEN SOLN 325 MG/10.15 ML UDCUP PO PRN (18:40)
[2020-04-21] MEDS: INSULIN REG, HUMAN 100 UNIT/ML 3 ML VIAL (PYX) SUBCUT SCH ×5 (02:41→23:34)
[2020-04-21] MEDS: HYDRALAZINE HCL 50 MG TABLET PO SCH ×4 (03:22→21:24)
[2020-04-21 03:58] LABS: HEMATOCRIT 22.2 % (37.9-51.0); MEAN CORPUSCULAR HEMOGLOBIN 26.2 pg (27.0-33.4); MEAN CORPUSCULAR HGB CONC 32.4 g/dL (32.0-36.0); MEAN CORPUSCULAR VOLUME 81 fl (80-97); PLATELET COUNT 736 10^3/uL (150-450); RED BLOOD COUNT 2.75 10^6/uL (4.35-5.55); WHITE BLOOD COUNT 24.7 10^3/uL (4.0-10.5)
[2020-04-21 04:00] LABS: ARTERIAL BLOOD BASE EXCESS -1.2 mmol/L; ARTERIAL BLOOD H2CO3 1.13 mmol/L (1.05-1.35); ARTERIAL BLOOD HCO3 23.2 mmol/L (20-24); ARTERIAL BLOOD O2 SATURATION 94.6 % (94-98); ARTERIAL BLOOD PCO2 37.4 mmHg (35-45); ARTERIAL BLOOD PH 7.41 (7.35-7.45); ARTERIAL BLOOD PO2 71.1 mmHg (80-100); ARTERIAL BLOOD TOTAL CO2 24.4 mmol/L (23-27)
[2020-04-21 04:02] LABS: ARTERIAL BLOOD FIO2 28%
[2020-04-21 04:13] LABS: ANION GAP 8 (5-19); BLOOD UREA NITROGEN 43 mg/dL (7-20); CALCIUM 8.6 mg/dL (8.4-10.2); CARBON DIOXIDE 25 mmol/L (22-30); CHLORIDE 115 mmol/L (98-107); GLUCOSE 109 mg/dL (75-110); PHOSPHORUS 5.4 mg/dL (2.5-4.5); POTASSIUM 3.9 mmol/L (3.6-5.0)
[2020-04-21 04:26] LABS: ABSOLUTE LYMPHOCYTES# (MANUAL) 2.5 10^3/uL (0.5-4.7); ABSOLUTE MONOCYTES # (MANUAL) 1.7 10^3/uL (0.1-1.4); BAND NEUTROPHILS % (MANUAL) 2 % (3-5); BASOPHILS % (MANUAL) 0 % (0-2); EOSINOPHILS % (MANUAL) 2 % (0-6); LYMPHOCYTES % (MANUAL) 10 % (13-45); MONOCYTES % (MANUAL) 7 % (3-13); SEGMENTED NEUTROPHILS % (MAN) 79 % (42-78); TOTAL CELLS COUNTED 100
[2020-04-21 04:27] LABS: TOXIC GRANULATION SLIGHT
[2020-04-21 04:28] LABS: ANISOCYTOSIS 1+; HEMOGLOBIN 7.2 g/dL (13.5-17.0); PLATELET COMMENT INCREASED
[2020-04-21 04:29] LABS: HYPOCHROMASIA SLIGHT; POLYCHROMASIA SLIGHT
[2020-04-21] MEDS: HEPARIN SOD (PORCINE) 5,000 UNIT/ML 1 ML VIAL SUBCUT SCH ×3 (05:27→21:23)
[2020-04-21] MEDS: METOCLOPRAMIDE HCL INJ/PF 10 MG/2 ML SDV IV SCH ×4 (05:28→23:34)
[2020-04-21] MEDS: AMLODIPINE BESYLATE 5 MG TABLET PO SCH ×2 (05:28→18:58)
--- NOTE | 2020-04-21 07:20 | RADIOLOGY REPORT (SQ) ---
EXAM DESCRIPTION: XR CHEST 1 VIEW COMPLETED DATE/TME: 04/21/2020 05:00 CLINICAL HISTORY: 59 years Male, anoxic encephalopathy COMPARISON: One day prior. NUMBER OF VIEWS/TECHNIQUE: 1/AP FINDINGS: Pulmonary vascular congestion.Adequate appearing endotracheal tube. Adequate appearing enteric tube partially obscured. Limitation: Leads/hardware/artifact. Normal cardiac silhouette size. No pneumothorax. Stable bony thorax. IMPRESSION: No significant change.
[2020-04-21] MEDS: INSULIN GLARGINE,HUM.REC.ANLOG 1,000 UNIT/10 ML VIAL SUBCUT SCH ×2 (11:52→21:25)
[2020-04-21] MEDS: PANTOPRAZOLE SODIUM 40 MG VIAL IV SCH (11:56)
[2020-04-21] MEDS: SCOPOLAMINE HYDROBROMIDE 1.5 MG PATCH.TD72 TD SCH (11:56)
[2020-04-21] MEDS: ASPIRIN 81 MG TABLET, ENT COATED PO SCH (11:57)
[2020-04-21] MEDS: METHYLPHENIDATE HCL 5 MG TABLET PO SCH ×2 (11:58→12:00)
[2020-04-21] MEDS: SENNOSIDES/DOCUSATE 8.6-50 MG 1 EACH TABLET NG SCH ×2 (11:58→21:23)
[2020-04-21] MEDS: CARBIDOPA/LEVODOPA 10-100 MG TABLET PO SCH (11:58)
[2020-04-21] MEDS: METOPROLOL TARTRATE 25 MG TABLET PO SCH ×2 (11:59→21:24)
[2020-04-21] MEDS: FLUCONAZOLE 400 MG/NS RTU 400 MG/200 ML RTUPB IV SCH (12:02)
[2020-04-21] MEDS: MORPHINE SULFATE 60 MG/60 ML RTUINJ IV PRN (23:27)
[2020-04-22] MEDS ORDERED: BISACODYL 10 MG SUPP.RECT PR ONE (00:30)
[2020-04-22] MEDS: HYDRALAZINE HCL 50 MG TABLET PO SCH ×4 (04:19→23:58)
[2020-04-22 04:42] LABS: ANION GAP 9 (5-19); BLOOD UREA NITROGEN 45 mg/dL (7-20); CALCIUM 8.8 mg/dL (8.4-10.2); CARBON DIOXIDE 24 mmol/L (22-30); CHLORIDE 115 mmol/L (98-107); GLUCOSE 103 mg/dL (75-110); POTASSIUM 4.7 mmol/L (3.6-5.0)
[2020-04-22] MEDS: INSULIN REG, HUMAN 100 UNIT/ML 3 ML VIAL (PYX) SUBCUT SCH ×3 (05:02→17:39)
[2020-04-22] MEDS: AMLODIPINE BESYLATE 5 MG TABLET PO SCH ×2 (05:28→17:24)
[2020-04-22] MEDS: METOCLOPRAMIDE HCL INJ/PF 10 MG/2 ML SDV IV SCH ×3 (05:29→17:24)
[2020-04-22] MEDS: HEPARIN SOD (PORCINE) 5,000 UNIT/ML 1 ML VIAL SUBCUT SCH ×3 (05:29→22:32)
[2020-04-22 06:20] LABS: HEMATOCRIT 23.6 % (37.9-51.0); MEAN CORPUSCULAR HEMOGLOBIN 26.4 pg (27.0-33.4); MEAN CORPUSCULAR HGB CONC 32.1 g/dL (32.0-36.0); MEAN CORPUSCULAR VOLUME 82 fl (80-97); PLATELET COUNT 761 10^3/uL (150-450); RED BLOOD COUNT 2.88 10^6/uL (4.35-5.55); RED CELL DISTRIBUTION WIDTH 16.1 % (11.5-14.0); WHITE BLOOD COUNT 21.2 10^3/uL (4.0-10.5)
[2020-04-22 06:38] LABS: HEMOGLOBIN 7.6 g/dL (13.5-17.0)
[2020-04-22] MEDS: METHYLPHENIDATE HCL 5 MG TABLET PO SCH ×2 (09:00→12:21)
[2020-04-22] MEDS: CARBIDOPA/LEVODOPA 10-100 MG TABLET PO SCH (09:01)
[2020-04-22] MEDS: INSULIN GLARGINE,HUM.REC.ANLOG 1,000 UNIT/10 ML VIAL SUBCUT SCH ×2 (09:20→22:32)
[2020-04-22] MEDS: PANTOPRAZOLE SODIUM 40 MG VIAL IV SCH (09:20)
[2020-04-22] MEDS: FLUCONAZOLE 400 MG/NS RTU 400 MG/200 ML RTUPB IV SCH (09:20)
[2020-04-22] MEDS: ASPIRIN 81 MG TABLET, ENT COATED PO SCH (09:20)
[2020-04-22] MEDS: SENNOSIDES/DOCUSATE 8.6-50 MG 1 EACH TABLET NG SCH ×2 (09:20→22:22)
--- NOTE | 2020-04-22 09:24 | PDOC CRITICAL CARE PROG REPORT ---
General Date:: 04/21/20 ICU Day:: 10 Ventilator Day:: 10 Hospital Day:: 11 Resuscitation Status: Full Code Medical Power of Case Loader Operator: Amber Events in the past 12 to 24 Hours:: No improvement in neurological status. 04/19: Opens eyes to voice. Does not clearly follow commands. Remains intubated. Hiccups today. Grossly edematous. 04/20: Significant change in neurological status. Remains intubated. Hiccuping again. Has not been getting as needed fentanyl. Still grossly edematous. Got 2 doses of furosemide yesterday. I/oh -200 mL yesterday. Creatinine 3.3>3.7. WBC 21>24.2, 1% bands. Platelet 601>643. Fever 100.4. Trach aspirate 04/15: 4+ PMNs, rare gram-positive cocci in pairs, isolating Isamar albicans/Isamar dubliniensis). On meropenem/daptomycin for polymicrobial infection of the foot. Not on DVT chemoprophylaxis due to recent surgery. GI PROPHYLAXIS: Protonix. 04/21: Appears to be more awake and alert today. Does seem to visually engage. 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 Continues to have low-grade fever with leukocytosis and thrombocytosis. WBC 24.7. Platelets 736. He is completed meropenem (7-day course). Still on daptomycin. Also on fluconazole. On tube feeds ([facility]). Tube feed residuals ranged from 20-300. DVT prophylaxis: Heparin. GI prophylaxis: Protonix. is at the bedside and expresses her wishes to pursue tracheostomy; however, she wishes to consult a close friend prior to making a final decision. Review of systems relevant to events:: Neurological. Reason for ICU Addmission:: Post respiratorycardiac arrest, Intubated - Medications: Medications reviewed and adjusted accordingly: Yes Physical Exam Vital Signs: Temp Pulse Resp BP Pulse Ox 100.4 F 99 20 128/53 H 93 04/21/20 06:00 04/21/20 10:00 04/20/20 08:00 04/20/20 08:00 04/21/20 11:31 Intake & Output 04/20/20 04/21/20 04/22/20 06:59 06:59 06:59 Intake Total 1557 1350 Output Total 1525 1315 125 Balance 32 35 -125 Weight 81.5 kg 81.6 kg Weight/Height Weight 81.6 kg Height 1.83 m General appearance: PRESENT: no acute distress, well-developed, well-nourished Mouth exam: PRESENT: moist, tongue midline, other - Multiple missing teeth. Purulent drainage is decreasing in quantity. Teeth exam: PRESENT: poor dentation Respiratory exam: PRESENT: clear to auscultation king. ABSENT: rales, rhonchi, wheezes Cardiovascular exam: PRESENT: RRR. ABSENT: diastolic murmur, rubs, systolic murmur Pulses: PRESENT: normal dorsalis pedis pul GI/Abdominal exam: PRESENT: distended, firm, normal bowel sounds, soft. ABSENT: guarding, mass, organolmegaly, rebound, tenderness Extremities exam: PRESENT: other - Left AKA. Right foot bandaged. Excisional debridement site, clean and dry. Neurological exam: PRESENT: awake, CN II-XII grossly intact Tubes/Lines: PRESENT: Endotracheal Tube, Arterial Catheter, Other - Orogastric Laboratory/Radiographs Laboratory Results: 04/21/20 03:50 04/21/20 03:50 04/21/20 04/21/20 04/21/20 03:50 03:50 03:50 WBC 24.7 H RBC 2.75 L Hgb 7.2 L Hct 22.2 L MCV 81 MCH 26.2 L MCHC 32.4 RDW 16.0 H Plt Count 736 H Seg Neutrophils % Not Reportable Carbonic Acid 1.13 HCO3/H2CO3 Ratio 20:1 ABG pH 7.41 ABG pCO2 37.4 ABG pO2 71.1 L ABG HCO3 23.2 ABG O2 Saturation 94.6 ABG Base Excess -1.2 FiO2 28% Sodium 147.8 H Potassium 3.9 Chloride 115 H Carbon Dioxide 25 Anion Gap 8 BUN 43 H Creatinine 3.75 H Est GFR ( Amer) 20 L Glucose 109 Calcium 8.6 Phosphorus 5.4 H Magnesium 2.6 H 04/11/20 04/11/20 04/11/20 01:02 01:02 15:35 Creatine Kinase 743 H CK-MB (CK-2) 2.41 Troponin I 0.077 0.261 04/13/20 04/13/20 04/16/20 04:43 04:43 14:30 Creatine Kinase 540 H 213 H CK-MB (CK-2) Troponin I 0.126 Impressions: Foot X-Ray 04/09/20 20:34 IMPRESSION: Findings are consistent with osteomyelitis involving the lateral aspect of the fifth metatarsal base. Associated underlying pathologic fracture deformity. Superimposed foci of soft tissue gas at this site could indicate infection with a gas-forming organism. copyright 2011 [employer]- All Rights Reserved Abdomen/Pelvis CT 04/11/20 00:00 IMPRESSION: NO SIGNIFICANT OR ACUTE PROCESS IN THE ABDOMEN OR PELVIS. Chest CT 04/11/20 00:00 IMPRESSION: MILD CARDIOMEGALY. BILATERAL PLEURAL EFFUSIONS WITH FAINT ATELECTASIS. NO LOBAR INFILTRATES. Head CT 04/15/20 05:00 IMPRESSION: NORMAL BRAIN CT WITHOUT CONTRAST. SINUS DISEASE. EVIDENCE OF ACUTE STROKE: NO. KUB X-Ray 04/17/20 07:01 IMPRESSION: Persistent ileus pattern Venous Doppler Study 04/20/20 00:00 IMPRESSION: NO EVIDENCE DVT OR SVT IN EITHER LEG. Chest X-Ray 04/21/20 05:00 IMPRESSION: No significant change. All labs, radiographs, diagnostic studies and EKGs were personally reviewed: Yes In addition, reports of radiographic and diagnostic studies were read: Yes Assessment and Plan - Diagnosis (1) Acute respiratory failure with hypoxia and hypercapnia Is this a current diagnosis for this admission?: Yes Plan: Titrate vent settings based on ABG results. Based on conversation with the patient's , will anticipate proceeding with tracheostomy. In light of the patient's current neurologic status and purulent drainage from the gingiva, I believe it would be prudent to proceed directly to tracheostomy rather than an attempted trial extubation. (2) Acute on chronic renal failure Qualifiers: Acute renal failure type: with acute tubular necrosis Chronic kidney disease stage: stage 4 (severe) Qualified Code(s): N17.0 - Acute kidney failure with tubular necrosis; N18.4 - Chronic kidney disease, stage 4 (severe) Is this a current diagnosis for this admission?: Yes Plan: Monitor urine output. Monitor serum creatinine. (3) Hypokalemia Is this a current diagnosis for this admission?: Yes Plan: Replete. (4) Brain anoxic injury Is this a current diagnosis for this admission?: Yes Plan: On valproic acid and methylphenidate. Continue neurological monitoring. (5) Diabetic infection of right foot Is this a current diagnosis for this admission?: Yes Plan: Debrided and stable for now. Completed 7-day course of meropenem. Continue daptomycin. Now also on fluconazole. (6) Microcytic anemia Is this a current diagnosis for this admission?: Yes (7) Thrombocytosis Is this a current diagnosis for this admission?: Yes Plan: Ultrasound bilateral lower extremities negative for DVT. Remove arterial line. Send tip for culture. Critical Time Critical Time (minutes): 60 Level of Care: ICU -: 1. The care of a critical patient is a dynamic process. This note is a reimbursement representative synopsis but static in nature. The timeframe for treatments given in order is not necessarily the actual time these treatments may have been done. 2. This patient requires critical care secondary to ongoing requirements for therapy not offered or safe outside the critical care environment. Transfer to a lower level of care will result in altered life or limb morbidity and mortality. 3. Multidisciplinary rounds completed. 4. ABCDE bundle addressed.
[2020-04-22] MEDS: METOPROLOL TARTRATE 25 MG TABLET PO SCH (09:35)
[2020-04-22] MEDS: METOPROLOL TARTRATE 50 MG TABLET PO SCH ×2 (10:15→22:22)
[2020-04-22] MEDS ORDERED: NORMAL SALINE 250 ML IV PRN ×2 (13:05)
--- NOTE | 2020-04-22 13:33 | Progress Note ---
Provider Note Provider Note: [facility] ID Telephone Advice Consultation Chart reviewed. Patient is a 59-year-old man with severe vascular disease, h ypertension, anemia, who has been dealing with a chronic foot ulcer for the past 2 months. He was followed at the wound clinic but here was no responce and he was admitted with a sever infection/gangrene of the left foot. He had fever, leukocytosis. Blood culture was positive for Streptococcus anginosus. Wound culture was polymicrobial including MSSA, Pseudomonas, Streptococcus anginosus, Peptostreptococcus, Bacteroides. He had an X ray of the foot that was consistent with osteomyelitis of the lateral aspect of the 5th metatarsal base. He was evaluated by surgery and he is s/p excisional debridement of skin, subcutaneous tissue, fascia, tendons of the right foot aspect. Excisional debr idement of portions of the right fifth metatarsal base and cuboid bones. After the procedure patient was transfered to the ICU and he coded (PEA). He has been on broad spectrum antibiotics including daptomycin and meropenem. His leukocytosis resolved, but it's now worsening again. He is currently on daptomycin alone. ID consulted for recommendations. Allergies: No Known Allergies Allergy (Verified 04/09/20 21:34) Medications: Amlodipine Besylate [Norvasc 10 mg Tablet] 10 mg PO DAILY 08/16/16 Aspirin [Adult Low Dose Aspirin EC] 81 mg PO DAILY 04/10/20 Ferrous Sulfate [Feosol 325 mg Tablet] 325 mg PO DAILY 04/10/20 Gabapentin [Neurontin] 600 mg PO QPM 04/10/20 Insulin Glargine,Hum.rec.anlog [Lantus Insulin 100 Unit/1 ml 10 ml] 12 unit SQ QHS 04/10/20 Isosorbide Mononitrate [Imdur 30 mg Tablet.er] 30 mg PO DAILY 04/10/20 Losartan Potassium [Cozaar 25 mg Tablet] 25 mg PO DAILY 04/10/20 Metoprolol Succinate [Toprol Xl 50 mg Tab.sr] 50 mg PO DAILY 04/10/20 Tamsulosin HCl [Flomax] 0.4 mg PO QPM 04/10/20 Venlafaxine HCl ER [Effexor Xr 37.5 mg Cap.sr] 37.5 mg PO DAILY 04/10/20 Vital Signs: Temp Pulse Resp BP Pulse Ox 98.6 F 92 22 H 106/50 L 85 L 04/22/20 12:00 04/22/20 12:00 04/22/20 12:00 04/22/20 12:00 04/22/20 12:00 Intake & Output 04/21/20 04/22/20 04/23/20 06:59 06:59 06:59 Intake Total 1350 470 200 Output Total 1315 1000 85 Balance 35 -530 115 Weight 81.6 kg 81.3 kg Weight/Height Weight 81.3 kg Height 6 ft Laboratories: 04/22/20 04:09 04/22/20 04:09 MCV 82 fl (80-97) 04/22/20 04:09 MCH 26.4 pg (27.0-33.4) L 04/22/20 04:09 MCHC 32.1 g/dL (32.0-36.0) 04/22/20 04:09 RDW 16.1 % (11.5-14.0) H 04/22/20 04:09 Seg Neutrophils % Not Reportable 04/21/20 03:50 Carbonic Acid 1.13 mmol/L (1.05-1.35) 04/21/20 03:50 HCO3/H2CO3 Ratio 20:1 04/21/20 03:50 ABG pH 7.41 (7.35-7.45) 04/21/20 03:50 ABG pCO2 37.4 mmHg (35-45) 04/21/20 03:50 ABG pO2 71.1 mmHg (80-100) L 04/21/20 03:50 ABG HCO3 23.2 mmol/L (20-24) 04/21/20 03:50 ABG O2 Saturation 94.6 % (94-98) 04/21/20 03:50 ABG Base Excess -1.2 mmol/L 04/21/20 03:50 FiO2 28% 04/21/20 03:50 Chloride 115 mmol/L (98-107) H 04/22/20 04:09 Carbon Dioxide 24 mmol/L (22-30) 04/22/20 04:09 Anion Gap 9 (5-19) 04/22/20 04:09 Est GFR ( Amer) 21 (>60) L 04/22/20 04:09 Glucose 103 mg/dL (75-110) 04/22/20 04:09 Lactic Acid 0.9 mmol/L (0.7-2.1) 04/13/20 04:43 Calcium 8.8 mg/dL (8.4-10.2) 04/22/20 04:09 Phosphorus 5.4 mg/dL (2.5-4.5) H 04/21/20 03:50 Magnesium 2.6 mg/dL (1.6-2.3) H 04/21/20 03:50 Total Bilirubin 0.4 mg/dL (0.2-1.3) 04/20/20 04:59 GGT 50 U/L (8-78) 04/13/20 04:43 AST 53 U/L (17-59) 04/20/20 04:59 Alkaline Phosphatase 86 U/L (38-126) 04/20/20 04:59 Ammonia < 8.7 umol/L (9-33) L 04/16/20 04:10 Total Protein 5.6 g/dL (6.3-8.2) L 04/20/20 04:59 Albumin 2.8 g/dL (3.5-5.0) L 04/20/20 04:59 Amylase 68 U/L (30-110) 04/17/20 05:25 Lipase 34.7 U/L (23-300) 04/17/20 05:25 TSH 1.01 uIU/mL (0.47-4.68) 04/16/20 04:10 Free T4 1.01 ng/dL (0.78-2.19) 04/16/20 04:10 Urine Color YELLOW 04/15/20 05:38 Urine Appearance SLIGHTLY-CLOUDY 04/15/20 05:38 Urine pH 5.0 (5.0-9.0) 04/15/20 05:38 Ur Specific [place] 1.014 04/15/20 05:38 Urine Protein 100 mg/dL (NEGATIVE) H 04/15/20 05:38 Urine Glucose (UA) 50 mg/dL (NEGATIVE) H 04/15/20 05:38 Urine Ketones NEGATIVE mg/dL (NEGATIVE) 04/15/20 05:38 Urine Blood MODERATE (NEGATIVE) H 04/15/20 05:38 Urine Nitrite NEGATIVE (NEGATIVE) 04/15/20 05:38 Ur Leukocyte Esterase NEGATIVE (NEGATIVE) 04/15/20 05:38 Urine WBC (Auto) 5 /HPF 04/15/20 05:38 Urine RBC (Auto) 3 /HPF 04/15/20 05:38 04/11/20 04/11/20 04/11/20 01:02 01:02 15:35 Creatine Kinase 743 H CK-MB (CK-2) 2.41 Troponin I 0.077 0.261 04/13/20 04/13/20 04/16/20 04:43 04:43 14:30 Creatine Kinase 540 H 213 H CK-MB (CK-2) Troponin I 0.126 Microbiology: Blood culture: 04/09 Streptococcus anginosus Wound culture: 04/09 Streptococcus anginosus, Pseudomonas aeruginosa, MSSA, Peptostr eptococcus, Bacteroides Radiology: Foot X-Ray 04/09/20 20:34 IMPRESSION: Findings are consistent with osteomyelitis involving the lateral aspect of the fifth metatarsal base. Associated underlying pathologic fracture deformity. Superimposed foci of soft tissue gas at this site could indicate infection with a gas-forming organism. Abdomen/Pelvis CT 04/11/20 00:00 IMPRESSION: NO SIGNIFICANT OR ACUTE PROCESS IN THE ABDOMEN OR PELVIS. Chest CT 04/11/20 00:00 IMPRESSION: MILD CARDIOMEGALY. BILATERAL PLEURAL EFFUSIONS WITH FAINT ATELECTASIS. NO LOBAR INFILTRATES. Head CT 04/15/20 05:00 IMPRESSION: NORMAL BRAIN CT WITHOUT CONTRAST. SINUS DISEASE. EVIDENCE OF ACUTE STROKE: NO. KUB X-Ray 04/17/20 07:01 IMPRESSION: Persistent ileus pattern Venous Doppler Study 04/20/20 00:00 IMPRESSION: NO EVIDENCE DVT OR SVT IN EITHER LEG. Chest X-Ray 04/21/20 05:00 IMPRESSION: No significant change. TTE 04/14/2020 No valvular vegetations. Assessment and Recommendations: Patient with complicated history due to severe peripheral vascular disease presenting with right foot gangrene s/p excisional debridement. He is bacteremic with Streptococcus anginosus and wound culture is polymicrobial with MSSA, Pseudomonas, Streptococcus anginosus, Bacteroides, Peptostreptococcus. There is evidence of osteomyelitis and it is not clear if adequate source control has been achieved. Unfortunately, he is not stable enough for surgery. He might need further amputation, but he will need re evaluation by surgery. In terms of antibiotic therapy, consider Zosyn to complete 6 weeks for osteomyelitis if he doesn't get a BKA. Zosyn will cover all the organisms isolated from the foot and also the Streptococcus anginosus isolated from the blood. TTE negative for vegetations. EOT 05/21/2020. Please call if questions. Cristin Moreira MD U ID [phone]
[2020-04-22] MEDS: RINGERS SOLUTION,LACTATED 1,000 ML IV PRN (15:11)
--- NOTE | 2020-04-22 15:58 | PDOC CRITICAL CARE PROG REPORT ---
General Date:: 04/22/20 ICU Day:: 11 Ventilator Day:: 11 Hospital Day:: 12 Resuscitation Status: Full Code Medical Power of Box Liner: Amber Events in the past 12 to 24 Hours:: No improvement in neurological status. 04/19: Opens eyes to voice. Does not clearly follow commands. Remains intubated. Hiccups today. Grossly edematous. 04/20: Significant change in neurological status. Remains intubated. Hiccuping again. Has not been getting as needed fentanyl. Still grossly edematous. Got 2 doses of furosemide yesterday. I/oh -200 mL yesterday. Creatinine 3.3>3.7. WBC 21>24.2, 1% bands. Platelet 601>643. Fever 100.4. Trach aspirate 04/15: 4+ PMNs, rare gram-positive cocci in pairs, isolating Isamar albicans/Isamar dubliniensis). On meropenem/daptomycin for polymicrobial infection of the foot. Not on DVT chemoprophylaxis due to recent surgery. GI PROPHYLAXIS: Protonix. 04/21: Appears to be more awake and alert today. Does seem to visually engage. Demonstrating left hand sharebroker today, questionable as to whether this is voluntary. Continues to have low-grade fever with leukocytosis and thrombocytosis. WBC 24.7. Platelets 736. He is completed meropenem (7-day course). Still on daptomycin. Also on fluconazole. On tube feeds ([facility]). Tube feed residuals ranged from 20-300. DVT prophylaxis: Heparin. GI prophylaxis: Protonix. is at the bedside and expresses her wishes to pursue tracheostomy; however, she wishes to consult a close friend prior to making a final decision. 04/22: Sleeping comfortably. No significant neurologic change. Continues to have low-grade fever, leukocytosis and thrombocytosis. Arterial line removed yesterday. WBC 24.7>21.2. Platelets 736>761. Hemoglobin 7.6. Finished 7- day course of meropenem. Still on daptomycin and fluconazole. On tube feeds. Nurse reports high residuals. No BM. On senna and Colace. On morphine infusion for sedation on mechanical ventilator. Review of systems relevant to events:: Neurological. Reason for ICU Addmission:: Post respiratorycardiac arrest, Intubated - Medications: Medications reviewed and adjusted accordingly: Yes Physical Exam Vital Signs: Temp Pulse Resp BP Pulse Ox 99.5 F 90 12 86/52 L 95 04/22/20 08:00 04/22/20 08:00 04/22/20 08:00 04/22/20 08:00 04/22/20 09:18 Intake & Output 04/21/20 04/22/20 04/23/20 06:59 06:59 06:59 Intake Total 1350 470 Output Total 1315 1000 15 Balance 35 -530 -15 Weight 81.6 kg 81.3 kg Weight/Height Weight 81.3 kg Height 1.83 m General appearance: PRESENT: no acute distress, well-developed, well-nourished Head exam: PRESENT: atraumatic, normocephalic Mouth exam: PRESENT: other - Purulent drainage from the oral cavity decreasing. Respiratory exam: PRESENT: rales, rhonchi, symmetrical, unlabored GI/Abdominal exam: PRESENT: diminished bowel sounds, distended, hypoactive bowel sounds. ABSENT: guarding, Beverly's sign, rebound, soft, tenderness Extremities exam: PRESENT: other - Left AKA. Right foot bandaged.. ABSENT: calf tenderness, pedal edema Neurological exam: PRESENT: awake, CN II-XII grossly intact Tubes/Lines: PRESENT: Endotracheal Tube, Other - Orogastric. ABSENT: Arterial Catheter Laboratory/Radiographs Laboratory Results: 04/22/20 04:09 04/22/20 04:09 04/22/20 04/22/20 04:09 04:09 WBC 21.2 H RBC 2.88 L Hgb 7.6 L Hct 23.6 L MCV 82 MCH 26.4 L MCHC 32.1 RDW 16.1 H Plt Count 761 H Sodium 147.6 H Potassium 4.7 Chloride 115 H Carbon Dioxide 24 Anion Gap 9 BUN 45 H Creatinine 3.68 H Est GFR ( Amer) 21 L Glucose 103 Calcium 8.8 04/11/20 04/11/20 04/11/20 01:02 01:02 15:35 Creatine Kinase 743 H CK-MB (CK-2) 2.41 Troponin I 0.077 0.261 04/13/20 04/13/20 04/16/20 04:43 04:43 14:30 Creatine Kinase 540 H 213 H CK-MB (CK-2) Troponin I 0.126 Impressions: Foot X-Ray 04/09/20 20:34 IMPRESSION: Findings are consistent with osteomyelitis involving the lateral aspect of the fifth metatarsal base. Associated underlying pathologic fracture deformity. Superimposed foci of soft tissue gas at this site could indicate infection with a gas-forming organism. copyright 2010 [employer]- All Rights Reserved Abdomen/Pelvis CT 04/11/20 00:00 IMPRESSION: NO SIGNIFICANT OR ACUTE PROCESS IN THE ABDOMEN OR PELVIS. Chest CT 04/11/20 00:00 IMPRESSION: MILD CARDIOMEGALY. BILATERAL PLEURAL EFFUSIONS WITH FAINT ATELECTASIS. NO LOBAR INFILTRATES. Head CT 04/15/20 05:00 IMPRESSION: NORMAL BRAIN CT WITHOUT CONTRAST. SINUS DISEASE. EVIDENCE OF ACUTE STROKE: NO. KUB X-Ray 04/17/20 07:01 IMPRESSION: Persistent ileus pattern Venous Doppler Study 04/20/20 00:00 IMPRESSION: NO EVIDENCE DVT OR SVT IN EITHER LEG. Chest X-Ray 04/21/20 05:00 IMPRESSION: No significant change. All labs, radiographs, diagnostic studies and EKGs were personally reviewed: Yes In addition, reports of radiographic and diagnostic studies were read: Yes Assessment and Plan - Diagnosis (1) Acute respiratory failure with hypoxia and hypercapnia Is this a current diagnosis for this admission?: Yes (2) Acute on chronic renal failure Qualifiers: Acute renal failure type: with acute tubular necrosis Chronic kidney disease stage: stage 4 (severe) Qualified Code(s): N17.0 - Acute kidney failure with tubular necrosis; N18.4 - Chronic kidney disease, stage 4 (severe) Is this a current diagnosis for this admission?: Yes Plan: Monitor urine output. Monitor serum creatinine. (3) Hypokalemia Is this a current diagnosis for this admission?: Yes Plan: Replete. (4) Brain anoxic injury Is this a current diagnosis for this admission?: Yes Plan: On valproic acid and methylphenidate. Continue neurological monitoring. (5) Diabetic infection of right foot Is this a current diagnosis for this admission?: Yes Plan: Debrided and stable for now. Completed 7-day course of meropenem. Continue daptomycin. Now also on fluconazole. (6) Microcytic anemia Is this a current diagnosis for this admission?: Yes Plan: Hgb 7.6 today. Now, normocytic. Given his acute on chronic kidney disease, I will transfuse 1 unit PRBC today. Check CBC in am. (7) Thrombocytosis Is this a current diagnosis for this admission?: Yes Plan: Ultrasound bilateral lower extremities negative for DVT. Remove arterial line. Send tip for culture. (8) Constipation Is this a current diagnosis for this admission?: Yes Plan: Likely reflecting narcotic bowel. Hold morphine. Critical Time Critical Time (minutes): 60 Level of Care: ICU -: 1. The care of a critical patient is a dynamic process. This note is a footwear sales representative synopsis but static in nature. The timeframe for treatments given in order is not necessarily the actual time these treatments may have been done. 2. This patient requires critical care secondary to ongoing requirements for therapy not offered or safe outside the critical care environment. Transfer to a lower level of care will result in altered life or limb morbidity and mortality. 3. Multidisciplinary rounds completed. 4. ABCDE bundle addressed.
[2020-04-22] MEDS ORDERED: MEROPENEM 500 MG in NORMAL SALINE 50 ML IV SCH (16:15)
[2020-04-22] MEDS: PIPERACILLIN SODIUM/TAZOBACTAM 3.375 GM in NORMAL SALINE 100 ML IV SCH (17:35)
[2020-04-22 21:15] LABS: HEMATOCRIT 25.2 % (37.9-51.0); HEMOGLOBIN 8.2 g/dL (13.5-17.0); MEAN CORPUSCULAR HGB CONC 32.4 g/dL (32.0-36.0); MEAN CORPUSCULAR VOLUME 83 fl (80-97); PLATELET COUNT 758 10^3/uL (150-450); RED BLOOD COUNT 3.03 10^6/uL (4.35-5.55); RED CELL DISTRIBUTION WIDTH 15.9 % (11.5-14.0); WHITE BLOOD COUNT 20.2 10^3/uL (4.0-10.5)
[2020-04-22 21:31] LABS: ABSOLUTE MONOCYTES # (MANUAL) 1.4 10^3/uL (0.1-1.4); BASOPHILS % (MANUAL) 0 % (0-2); EOSINOPHILS % (MANUAL) 0 % (0-6); LYMPHOCYTES % (MANUAL) 9 % (13-45); MONOCYTES % (MANUAL) 7 % (3-13); PLATELET COMMENT INCREASED; SEGMENTED NEUTROPHILS % (MAN) 83 % (42-78); TOTAL CELLS COUNTED 100
[2020-04-22 21:33] LABS: ANISOCYTOSIS SLIGHT
[2020-04-22 21:34] LABS: POLYCHROMASIA SLIGHT
[2020-04-23] MEDS: INSULIN REG, HUMAN 100 UNIT/ML 3 ML VIAL (PYX) SUBCUT SCH ×6 (00:43→23:31)
[2020-04-23] MEDS: METOCLOPRAMIDE HCL INJ/PF 10 MG/2 ML SDV IV SCH ×5 (00:45→23:31)
[2020-04-23] MEDS: PIPERACILLIN SODIUM/TAZOBACTAM 3.375 GM in NORMAL SALINE 100 ML IV SCH ×2 (00:45→05:12)
[2020-04-23 04:03] LABS: ARTERIAL BLOOD BASE EXCESS -4.8 mmol/L; ARTERIAL BLOOD H2CO3 1.26 mmol/L (1.05-1.35); ARTERIAL BLOOD O2 SATURATION 89.5 % (94-98); ARTERIAL BLOOD PCO2 41.8 mmHg (35-45); ARTERIAL BLOOD PH 7.32 (7.35-7.45); ARTERIAL BLOOD PO2 60.9 mmHg (80-100); ARTERIAL BLOOD TOTAL CO2 22.3 mmol/L (23-27)
[2020-04-23] MEDS: HYDRALAZINE HCL 50 MG TABLET PO SCH ×4 (04:11→21:55)
[2020-04-23 04:21] LABS: ARTERIAL BLOOD FIO2 40%
[2020-04-23 04:34] LABS: HEMATOCRIT 25.9 % (37.9-51.0); HEMOGLOBIN 8.4 g/dL (13.5-17.0); MEAN CORPUSCULAR HGB CONC 32.6 g/dL (32.0-36.0); MEAN CORPUSCULAR VOLUME 83 fl (80-97); PLATELET COUNT 777 10^3/uL (150-450); RED BLOOD COUNT 3.12 10^6/uL (4.35-5.55); RED CELL DISTRIBUTION WIDTH 16.1 % (11.5-14.0); WHITE BLOOD COUNT 19.4 10^3/uL (4.0-10.5)
[2020-04-23 04:43] LABS: ANION GAP 9 (5-19); BLOOD UREA NITROGEN 45 mg/dL (7-20); CALCIUM 8.7 mg/dL (8.4-10.2); CARBON DIOXIDE 23 mmol/L (22-30); CHLORIDE 116 mmol/L (98-107); GLUCOSE 111 mg/dL (75-110); POTASSIUM 4.8 mmol/L (3.6-5.0)
[2020-04-23] MEDS: HEPARIN SOD (PORCINE) 5,000 UNIT/ML 1 ML VIAL SUBCUT SCH ×3 (05:13→21:54)
[2020-04-23] MEDS: AMLODIPINE BESYLATE 5 MG TABLET PO SCH ×2 (05:13→17:35)
[2020-04-23] MEDS: RINGERS SOLUTION,LACTATED 1,000 ML IV PRN (05:37)
[2020-04-23] MEDS: METHYLPHENIDATE HCL 5 MG TABLET PO SCH ×2 (07:52→12:13)
[2020-04-23] MEDS: CARBIDOPA/LEVODOPA 10-100 MG TABLET PO SCH (07:52)
--- NOTE | 2020-04-23 08:56 | RADIOLOGY REPORT (SQ) ---
EXAM DESCRIPTION: CHEST SINGLE VIEW IMAGES COMPLETED DATE/TIME: 04/23/2020 6:57 am REASON FOR STUDY: ETT tube COMPARISON: AP view of the chest 04/21/2020. EXAM PARAMETERS: NUMBER OF VIEWS: One view. TECHNIQUE: An AP view of the chest was obtained. RADIATION DOSE: NA LIMITATIONS: None. FINDINGS: LUNGS AND PLEURA: Increased patchy opacities in the mid right hemithorax. The costophreni c sulci are blunted. The dense opacity in the left retrocardiac space that obscures the contour of d escending thoracic aorta and left hemidiaphragm is also increased. There is no pneumothorax. MEDIASTINUM AND HILAR STRUCTURES: Stable mediastinal and hilar contours. HEART AND VASCULAR STRUCTURES: Stable enlarged cardiac silhouette. BONES: No acute findings. HARDWARE: The tip of the endotracheal tube projects 5.8 cm above the ern[place]. The tip of the enteric tube projects within the gastric lumen. There is a carotid stent that projects within the circumflex artery. OTHER: No other finding. IMPRESSION: Increased patchy opacities in the mid right hemithorax and increased consolidation in th e retrocardiac space. Clinical correlation for worsening pulmonary edema/ CHF is recommended. TECHNICAL DOCUMENTATION: JOB ID: [id number] 2010 [employer]- All Rights Reserved Reading location - IP/workstation name: [email or web address]
[2020-04-23] MEDS: ASPIRIN 81 MG TABLET, ENT COATED PO SCH (09:18)
[2020-04-23] MEDS: PANTOPRAZOLE SODIUM 40 MG VIAL IV SCH (09:18)
[2020-04-23] MEDS: METOPROLOL TARTRATE 50 MG TABLET PO SCH ×2 (09:19→21:55)
[2020-04-23] MEDS: SENNOSIDES/DOCUSATE 8.6-50 MG 1 EACH TABLET NG SCH ×2 (09:20→21:55)
[2020-04-23] MEDS: FLUCONAZOLE 400 MG/NS RTU 400 MG/200 ML RTUPB IV SCH (09:20)
[2020-04-23] MEDS ORDERED: FUROSEMIDE INJ/PF 40 MG/4 ML SDV IV ONE (10:14)
[2020-04-23] MEDS: BISACODYL 10 MG SUPP.RECT PR PRN (10:32)
[2020-04-23] MEDS ORDERED: FUROSEMIDE INJ/PF 40 MG/4 ML SDV IV PRN (11:15)
[2020-04-23] MEDS: PIPERACILLIN SODIUM/TAZOBACTAM 2.25 GM in NORMAL SALINE 50 ML IV SCH ×3 (12:36→23:31)
[2020-04-23 16:07] LABS: ANION GAP 13 (5-19); BLOOD UREA NITROGEN 46 mg/dL (7-20); CALCIUM 8.7 mg/dL (8.4-10.2); CARBON DIOXIDE 20 mmol/L (22-30); CHLORIDE 114 mmol/L (98-107); GLUCOSE 135 mg/dL (75-110); POTASSIUM 4.8 mmol/L (3.6-5.0)
--- NOTE | 2020-04-23 16:07 | PDOC CRITICAL CARE PROG REPORT ---
General Date:: 04/23/20 ICU Day:: 12 Ventilator Day:: 12 Hospital Day:: 13 Resuscitation Status: Full Code Medical Power of Labor Utilization Superintendent: Amber Events in the past 12 to 24 Hours:: No improvement in neurological status. 04/19: Opens eyes to voice. Does not clearly follow commands. Remains intubated. Hiccups today. Grossly edematous. 04/20: Significant change in neurological status. Remains intubated. Hiccuping again. Has not been getting as needed fentanyl. Still grossly edematous. Got 2 doses of furosemide yesterday. I/oh -200 mL yesterday. Creatinine 3.3>3.7. WBC 21>24.2, 1% bands. Platelet 601>643. Fever 100.4. Trach aspirate 04/15: 4+ PMNs, rare gram-positive cocci in pairs, isolating Isamar albicans/Isamar dubliniensis). On meropenem/daptomycin for polymicrobial infection of the foot. Not on DVT chemoprophylaxis due to recent surgery. GI PROPHYLAXIS: Protonix. 04/21: Appears to be more awake and alert today. Does seem to visually engage. Demonstrating left hand residential subcontractor today, questionable as to whether this is voluntary. Continues to have low-grade fever with leukocytosis and thrombocytosis. WBC 24.7. Platelets 736. He is completed meropenem (7-day course). Still on daptomycin. Also on fluconazole. On tube feeds ([facility]). Tube feed residuals ranged from 20-300. DVT prophylaxis: Heparin. GI prophylaxis: Protonix. is at the bedside and expresses her wishes to pursue tracheostomy; however, she wishes to consult a close friend prior to making a final decision. 04/22: Sleeping comfortably. No significant neurologic change. Continues to have low-grade fever, leukocytosis and thrombocytosis. Arterial line removed yesterday. WBC 24.7>21.2. Platelets 736>761. Hemoglobin 7.6. Finished 7- day course of meropenem. Still on daptomycin and fluconazole. On tube feeds. Nurse reports high residuals. No BM. On senna and Colace. On morphine infusion for sedation on mechanical ventilator. 04/23: ID consult appreciated. Notation made of recommendations for antibiotic therapy for osteomyelitis. Antibiotics have been changed in the interim: 6-week course of Zosyn planned. Afebrile. WBC [id number]. Platelets [id number]. Hemoglobin 8.4. Tube feeds on hold for high residuals. Suspec rosa narcotic bowel. No BM despite glycerin suppository. Remains intubated on mechanical ventilatory support. Anticipating a decision from the patient's today to proceed with tracheostomy and percutaneous gastrostomy placement. DVT PROPHYLAXIS: Heparin. GI PROPHYLAXIS: Protonix. Review of systems relevant to events:: Neurological. Reason for ICU Addmission:: Post respiratorycardiac arrest, Intubated - Medications: Medications reviewed and adjusted accordingly: Yes Vasopressors:: None Physical Exam Vital Signs: Temp Pulse Resp BP Pulse Ox 99.1 F 91 11 L 116/58 L 95 04/23/20 08:00 04/23/20 10:00 04/23/20 10:15 04/23/20 10:15 04/23/20 10:15 Intake & Output 04/22/20 04/23/20 04/24/20 06:59 06:59 06:59 Intake Total 470 1625 200 Output Total 1000 540 80 Balance -530 1085 120 Weight 81.3 kg 81.3 kg Weight/Height Weight 81.3 kg Height 1.83 m General appearance: PRESENT: no acute distress, well-developed, well-nourished Head exam: PRESENT: atraumatic, normocephalic Mouth exam: PRESENT: moist, tongue midline, other - Multiple loose and missing teeth Respiratory exam: PRESENT: crackles. ABSENT: rales, rhonchi, wheezes Cardiovascular exam: PRESENT: RRR. ABSENT: diastolic murmur, rubs, systolic murmur Pulses: PRESENT: normal carotid pulses, normal radial pulses GI/Abdominal exam: PRESENT: diminished bowel sounds, distended. ABSENT: guarding, mass, organolmegaly, rebound, rigid, tenderness Gentrourinary exam: PRESENT: indwelling catheter Extremities exam: PRESENT: other - Left AKA. Right foot bandage removed. No purulent drainage. No foul odor. Tubes/Lines: PRESENT: Endotracheal Tube, Nasogastic Tube Laboratory/Radiographs Laboratory Results: 04/23/20 04:07 04/23/20 04:07 04/22/20 04/22/20 04/23/20 13:19 21:05 03:55 WBC 20.2 H RBC 3.03 L Hgb 8.2 L Hct 25.2 L MCV 83 MCH 27.0 MCHC 32.4 RDW 15.9 H Plt Count 758 H Seg Neutrophils % Not Reportable Carbonic Acid 1.26 HCO3/H2CO3 Ratio 16:1 ABG pH 7.32 L ABG pCO2 41.8 ABG pO2 60.9 L ABG HCO3 21.0 ABG O2 Saturation 89.5 L ABG Base Excess -4.8 FiO2 40% Sodium Potassium Chloride Carbon Dioxide Anion Gap BUN Creatinine Est GFR ( Amer) Glucose Calcium Phosphorus Magnesium Blood Type A POSITIVE Antibody Screen NEGATIVE 04/23/20 04/23/20 04:07 04:07 WBC 19.4 H RBC 3.12 L Hgb 8.4 L Hct 25.9 L MCV 83 MCH 27.0 MCHC 32.6 RDW 16.1 H Plt Count 777 H Seg Neutrophils % Carbonic Acid HCO3/H2CO3 Ratio ABG pH ABG pCO2 ABG pO2 ABG HCO3 ABG O2 Saturation ABG Base Excess FiO2 Sodium 147.6 H Potassium 4.8 Chloride 116 H Carbon Dioxide 23 Anion Gap 9 BUN 45 H Creatinine 4.20 H Est GFR ( Amer) 18 L Glucose 111 H Calcium 8.7 Phosphorus 7.0 H Magnesium 2.7 H Blood Type Antibody Screen 04/11/20 04/11/20 04/11/20 01:02 01:02 15:35 Creatine Kinase 743 H CK-MB (CK-2) 2.41 Troponin I 0.077 0.261 04/13/20 04/13/20 04/16/20 04:43 04:43 14:30 Creatine Kinase 540 H 213 H CK-MB (CK-2) Troponin I 0.126 Impressions: Foot X-Ray 04/09/20 20:34 IMPRESSION: Findings are consistent with osteomyelitis involving the lateral aspect of the fifth metatarsal base. Associated underlying pathologic fracture deformity. Superimposed foci of soft tissue gas at this site could indicate infection with a gas-forming organism. copyright 2010 [employer]- All Rights Reserved Abdomen/Pelvis CT 04/11/20 00:00 IMPRESSION: NO SIGNIFICANT OR ACUTE PROCESS IN THE ABDOMEN OR PELVIS. Chest CT 04/11/20 00:00 IMPRESSION: MILD CARDIOMEGALY. BILATERAL PLEURAL EFFUSIONS WITH FAINT ATELECTASIS. NO LOBAR INFILTRATES. Head CT 04/15/20 05:00 IMPRESSION: NORMAL BRAIN CT WITHOUT CONTRAST. SINUS DISEASE. EVIDENCE OF ACUTE STROKE: NO. KUB X-Ray 04/17/20 07:01 IMPRESSION: Persistent ileus pattern Venous Doppler Study 04/20/20 00:00 IMPRESSION: NO EVIDENCE DVT OR SVT IN EITHER LEG. Chest X-Ray 04/23/20 05:00 IMPRESSION: Increased patchy opacities in the mid right hemithorax and increased consolidation in the retrocardiac space. Clinical correlation for worsening pulmonary edema/ CHF is recommended. All labs, radiographs, diagnostic studies and EKGs were personally reviewed: Yes In addition, reports of radiographic and diagnostic studies were read: Yes Assessment and Plan - Diagnosis (1) Acute respiratory failure with hypoxia and hypercapnia Is this a current diagnosis for this admission?: Yes Plan: Titrate vent settings based on ABG results. Chest x-ray today is compatible with acute pulmonary edema. The patient's has decided to proceed with tracheostomy and PEG placement. Consult placed to Dr. Aldana. (2) Acute on chronic renal failure Qualifiers: Acute renal failure type: with acute tubular necrosis Chronic kidney disease stage: stage 4 (severe) Qualified Code(s): N17.0 - Acute kidney failure with tubular necrosis; N18.4 - Chronic kidney disease, stage 4 (severe) Is this a current diagnosis for this admission?: Yes (3) Hypokalemia Is this a current diagnosis for this admission?: Yes (4) Brain anoxic injury Is this a current diagnosis for this admission?: Yes (5) Osteomyelitis of ankle or foot, right, acute Is this a current diagnosis for this admission?: Yes Plan: Zosyn x6 weeks. This patient will need a PICC line placed. (6) Diabetic infection of right foot Is this a current diagnosis for this admission?: Yes (7) Microcytic anemia Is this a current diagnosis for this admission?: Yes (8) Thrombocytosis Is this a current diagnosis for this admission?: Yes (9) Constipation Qualifiers: Constipation type: drug induced constipation Qualified Code(s): K59.03 - Drug induced constipation Is this a current diagnosis for this admission?: Yes Plan: Likely reflecting narcotic bowel. Continue to withhold morphine. Bisacodyl suppository today. May need enema. Also, NG administration of naloxone may be considered. Critical Time Critical Time (minutes): 60 Level of Care: ICU -: 1. The care of a critical patient is a dynamic process. This note is a escrow representative synopsis but static in nature. The timeframe for treatments given in order is not necessarily the actual time these treatments may have been done. 2. This patient requires critical care secondary to ongoing requirements for therapy not offered or safe outside the critical care environment. Transfer to a lower level of care will result in altered life or limb morbidity and mortality. 3. Multidisciplinary rounds completed. 4. ABCDE bundle addressed.
--- NOTE | 2020-04-23 18:53 | RADIOLOGY REPORT (SQ) ---
EXAM DESCRIPTION: KUB/ABDOMEN (SINGLE VIEW) IMAGES COMPLETED DATE/TIME: 04/23/2020 6:31 pm REASON FOR STUDY: constipation COMPARISON: 04/17/2020 NUMBER OF VIEWS: One view. TECHNIQUE: Supine radiographic image of the abdomen acquired. LIMITATIONS: None. FINDINGS: BOWEL GAS PATTERN: Nonobstructive gas pattern. CALCIFICATIONS: No suspicious calcifications. SOFT TISSUES: No gross mass or suggestion of organomegaly. HARDWARE: None in the abdomen. BONES: No acute fracture. No worrisome bone lesions. OTHER: No other significant finding. IMPRESSION: NO RADIOGRAPHIC EVIDENCE FOR ACUTE ABDOMINAL DISEASE. TECHNICAL DOCUMENTATION: JOB ID: [id number] 2010 [employer]- All Rights Reserved Reading location - IP/workstation name: [email or web address]
[2020-04-23] MEDS: INSULIN GLARGINE,HUM.REC.ANLOG 1,000 UNIT/10 ML VIAL SUBCUT SCH (21:54)
[2020-04-24] MEDS: HYDRALAZINE HCL 50 MG TABLET PO SCH ×4 (03:22→21:24)
[2020-04-24 04:43] LABS: ABSOLUTE BASOPHILS # (AUTO) 0.1 10^3/uL (0.0-0.2); ABSOLUTE EOSINOPHILS # (AUTO) 0.2 10^3/uL (0.0-0.6); ABSOLUTE LYMPHOCYTES (AUTO) 1.1 10^3/uL (0.5-4.7); ABSOLUTE MONOCYTES (AUTO) 1.7 10^3/uL (0.1-1.4); BASOPHILS % (AUTO) 0.4 % (0-2); EOSINOPHILS % (AUTO) 1.1 % (0-6); HEMATOCRIT 24.2 % (37.9-51.0); LYMPHOCYTES % (AUTO) 6.3 % (13-45); MEAN CORPUSCULAR HEMOGLOBIN 26.6 pg (27.0-33.4); MEAN CORPUSCULAR HGB CONC 32.2 g/dL (32.0-36.0); MEAN CORPUSCULAR VOLUME 83 fl (80-97); MONOCYTES % (AUTO) 9.5 % (3-13); PLATELET COUNT 759 10^3/uL (150-450); RED BLOOD COUNT 2.92 10^6/uL (4.35-5.55); SEGMENTED NEUTROPHILS % (AUTO) 82.7 % (42-78); TOTAL CELLS COUNTED % (AUTO) 100 %; WHITE BLOOD COUNT 18.1 10^3/uL (4.0-10.5)
[2020-04-24 04:47] LABS: HEMOGLOBIN 7.8 g/dL (13.5-17.0)
[2020-04-24 04:57] LABS: PHOSPHORUS 7.2 mg/dL (2.5-4.5)
[2020-04-24] MEDS: AMLODIPINE BESYLATE 5 MG TABLET PO SCH ×2 (05:15→19:03)
[2020-04-24] MEDS: PIPERACILLIN SODIUM/TAZOBACTAM 2.25 GM in NORMAL SALINE 50 ML IV SCH ×2 (05:15→20:33)
[2020-04-24] MEDS: METOCLOPRAMIDE HCL INJ/PF 10 MG/2 ML SDV IV SCH ×4 (05:15→23:43)
[2020-04-24] MEDS: HEPARIN SOD (PORCINE) 5,000 UNIT/ML 1 ML VIAL SUBCUT SCH ×3 (05:15→21:24)
[2020-04-24] MEDS: INSULIN REG, HUMAN 100 UNIT/ML 3 ML VIAL (PYX) SUBCUT SCH ×4 (05:16→23:43)
[2020-04-24 05:46] LABS: ARTERIAL BLOOD BASE EXCESS -7.5 mmol/L; ARTERIAL BLOOD H2CO3 1.09 mmol/L (1.05-1.35); ARTERIAL BLOOD O2 SATURATION 90.9 % (94-98); ARTERIAL BLOOD PCO2 36.3 mmHg (35-45); ARTERIAL BLOOD PH 7.31 (7.35-7.45); ARTERIAL BLOOD PO2 64.1 mmHg (80-100); ARTERIAL BLOOD TOTAL CO2 19.1 mmol/L (23-27)
[2020-04-24 05:50] LABS: ARTERIAL BLOOD FIO2 40%
--- NOTE | 2020-04-24 08:44 | PDOC PROGRESS REPORT ---
Subjective Reason For Visit: RIGHT FOOT GAS GANGRENE,DIABETES,CKD Patient remains on ventilator, tube feeds held; getting narcotics for periodic a gitation. Physical Exam Vital Signs: Temp Pulse Resp BP Pulse Ox 99.5 F 98 16 115/61 97 04/24/20 01:40 04/23/20 20:00 04/24/20 06:00 04/24/20 05:47 04/24/20 08:17 Intake & Output 04/23/20 04/24/20 04/25/20 06:59 06:59 06:59 Intake Total 1625 1500 Output Total 540 1810 Balance 1085 -310 Weight 81.3 kg 83 kg General appearance: PRESENT: other - Sedated, eyes open Mouth exam: PRESENT: other - Tongue divided partially in midline; teeth falling out; swollen gums GI/Abdominal exam: PRESENT: other - Slightly distended mild tympany Extremities exam: PRESENT: other - Right lower extremity wrapped Results Laboratory Results: 04/24/20 04:26 04/23/20 15:28 04/23/20 04/23/20 04/24/20 14:48 15:28 04:26 WBC 18.1 H RBC 2.92 L Hgb 7.8 L Hct 24.2 L MCV 83 MCH 26.6 L MCHC 32.2 RDW 16.0 H Plt Count 759 H Seg Neutrophils % 82.7 H Carbonic Acid HCO3/H2CO3 Ratio ABG pH ABG pCO2 ABG pO2 ABG HCO3 ABG O2 Saturation ABG Base Excess FiO2 Sodium Cancelled 146.9 H Potassium Cancelled 4.8 Chloride Cancelled 114 H Carbon Dioxide Cancelled 20 L Anion Gap Cancelled 13 BUN Cancelled 46 H Creatinine Cancelled 4.57 H Est GFR ( Amer) Cancelled 16 L Est GFR (Non-Af Amer) Cancelled Glucose Cancelled 135 H Calcium Cancelled 8.7 Phosphorus Magnesium 04/24/20 04/24/20 04:26 05:25 WBC RBC Hgb Hct MCV MCH MCHC RDW Plt Count Seg Neutrophils % Carbonic Acid 1.09 HCO3/H2CO3 Ratio 16:1 ABG pH 7.31 L ABG pCO2 36.3 ABG pO2 64.1 L ABG HCO3 18.0 L ABG O2 Saturation 90.9 L ABG Base Excess -7.5 FiO2 40% Sodium Potassium Chloride Carbon Dioxide Anion Gap BUN Creatinine Est GFR ( Amer) Est GFR (Non-Af Amer) Glucose Calcium Phosphorus 7.2 H Magnesium 2.6 H 04/11/20 04/11/20 04/11/20 01:02 01:02 15:35 Creatine Kinase 743 H CK-MB (CK-2) 2.41 Troponin I 0.077 0.261 04/13/20 04/13/20 04/16/20 04:43 04:43 14:30 Creatine Kinase 540 H 213 H CK-MB (CK-2) Troponin I 0.126 Impressions: Foot X-Ray 04/09/20 20:34 IMPRESSION: Findings are consistent with osteomyelitis involving the lateral aspect of the fifth metatarsal base. Associated underlying pathologic fracture deformity. Superimposed foci of soft tissue gas at this site could indicate infection with a gas-forming organism. copyright 2010 [employer]- All Rights Reserved Abdomen/Pelvis CT 04/11/20 00:00 IMPRESSION: NO SIGNIFICANT OR ACUTE PROCESS IN THE ABDOMEN OR PELVIS. Chest CT 04/11/20 00:00 IMPRESSION: MILD CARDIOMEGALY. BILATERAL PLEURAL EFFUSIONS WITH FAINT ATELECTASIS. NO LOBAR INFILTRATES. Head CT 04/15/20 05:00 IMPRESSION: NORMAL BRAIN CT WITHOUT CONTRAST. SINUS DISEASE. EVIDENCE OF ACUTE STROKE: NO. Venous Doppler Study 04/20/20 00:00 IMPRESSION: NO EVIDENCE DVT OR SVT IN EITHER LEG. KUB X-Ray 04/23/20 00:00 IMPRESSION: NO RADIOGRAPHIC EVIDENCE FOR ACUTE ABDOMINAL DISEASE. Assessment & Plan - Diagnosis (1) Diabetic infection of right foot Is this a current diagnosis for this admission?: Yes Plan: Impression: 2 weeks in the ICU on ventilator for respiratory failure, progressive renal insufficiency, stable right foot status post debridement, ileus Recommendations: 1. Agree with tracheostomy and percutaneous endoscopic gastrostomy in the operating room. I phoned the patient's , and left a message to call back. 2.Patient at increased risk for perioperative respiratory complications as well as sepsis. 3. Discussed above with ICU team. - Time Time Spent: 30 to 50 Minutes
[2020-04-24] MEDS ORDERED: FLUCONAZOLE 100 MG TABLET NG SCH (10:00)
--- NOTE | 2020-04-24 10:31 | RADIOLOGY REPORT (SQ) ---
EXAM DESCRIPTION: CHEST SINGLE VIEW IMAGES COMPLETED DATE/TIME: 04/24/2020 5:39 am REASON FOR STUDY: ETT tube COMPARISON: 04/23/2020 NUMBER OF VIEWS: One view. TECHNIQUE: Single frontal radiographic image of the chest acquired. LIMITATIONS: None. FINDINGS: LUNGS AND PLEURA: Stable appearance. MEDIASTINUM AND HEART: Stable heart size and mediastinal structures. SUPPORT DEVICES: Appropriate location without change. BONY STRUCTURES: No acute findings. HARDWARE: None. OTHER: No other significant finding. IMPRESSION: STABLE APPEARANCE OF THE CHEST. SUPPORT DEVICES UNCHANGED. Reading location - IP/workstation name: [email or web address]
[2020-04-24] MEDS: METHYLPHENIDATE HCL 5 MG TABLET PO SCH ×2 (11:46→18:11)
[2020-04-24] MEDS: CARBIDOPA/LEVODOPA 10-100 MG TABLET PO SCH (11:46)
[2020-04-24] MEDS: METOPROLOL TARTRATE 50 MG TABLET PO SCH ×2 (11:47→21:24)
[2020-04-24] MEDS: ASPIRIN 81 MG TABLET, ENT COATED PO SCH (11:47)
[2020-04-24] MEDS: SENNOSIDES/DOCUSATE 8.6-50 MG 1 EACH TABLET NG SCH ×2 (11:48→21:24)
[2020-04-24] MEDS: BISACODYL 10 MG SUPP.RECT PR PRN (12:14)
[2020-04-24] MEDS: PANTOPRAZOLE SODIUM 40 MG VIAL IV SCH (12:14)
[2020-04-24] MEDS: SCOPOLAMINE HYDROBROMIDE 1.5 MG PATCH.TD72 TD SCH (12:14)
[2020-04-24] MEDS ORDERED: LIDOCAINE 1%/EPINEPHRINE INJ 20 ML VIAL ONE (13:02)
[2020-04-24] MEDS ORDERED: LIDOCAINE 2% JELLY 30 ML TUBE ONE (13:02)
[2020-04-24] MEDS ORDERED: MORPHINE SULFATE 10 MG/ML INJ ONE (13:06)
[2020-04-24] MEDS ORDERED: FENTANYL CITRATE INJ/PF 100 MCG/2 ML AMPUL ONE (13:06)
[2020-04-24] MEDS ORDERED: MIDAZOLAM 2 MG/2 ML INJ ONE (13:06)
[2020-04-24 13:08] LABS: ARTERIAL BLOOD BASE EXCESS -7.7 mmol/L; ARTERIAL BLOOD FIO2 40%; ARTERIAL BLOOD HCO3 17.9 mmol/L (20-24); ARTERIAL BLOOD O2 SATURATION 89.9 % (94-98); ARTERIAL BLOOD PCO2 36.6 mmHg (35-45); ARTERIAL BLOOD PH 7.31 (7.35-7.45); ARTERIAL BLOOD PO2 62.1 mmHg (80-100); ARTERIAL BLOOD TOTAL CO2 19.1 mmol/L (23-27)
--- NOTE | 2020-04-24 14:53 | Operative Report ---
Operative Report DATE OF SURGERY: 04/24/20 PREOPERATIVE DIAGNOSIS: 1. Respiratory failure. 2. Severe periodontal diseas e. 3. Ileus. 4. Anoxic brain injury POSTOPERATIVE DIAGNOSIS: Same with esophagitis and gastritis OPERATION: 1. Open tracheostomy with a fenestrated #8 Shiley tube. 2. Esophagogastroduodenoscopy. 3. Percutaneous endoscopic gastrostomy. 4. Focused ultrasound of the neck SURGEON: DUSTIN KATHLEEN ANESTHESIA: GA TISSUE REMOVED OR ALTERED: None COMPLICATIONS: None ESTIMATED BLOOD LOSS: Scant INTRAOPERATIVE FINDINGS: See below PROCEDURE: Patient was taken from the ICU to the operating room where general anesthesia was induced the existing endotracheal tube, 7.5 inner diameter. Focused ultrasound of the neck was performed by Dr. Hever clark because of generalized swelling of the neck. This revealed no evidence of goiter, only subcutaneous and deeper soft tissue edema. The trachea was midline The patient was placed in semirecumbent position neck and chest wall prepped and draped sterile fashion. Of note the neck was extended to optimize exposure of the anterior neck. Surgical plan and surgical timeout were conducted. Ryan was made on the skin approximately 1-1/2 fingerbreadths above the sternal notch. The skin was anesthetized 1% plain lidocaine. A 3 cm transverse incision was made over the anterior neck, and the subcutaneous tissue and platysma divided with electrocautery in a transverse fashion. Strap muscles were divided in midline with electrocautery. The thyroid isthmus was divided with electrocautery uneventfully. Small bleeder at the base of the right inferior thyroid pole medially was cauterized. The anterior surface of t he trachea was exposed using a hemostat dissection. Using [place] retractors, the upper trachea was exposed optimally. I now placed a medium size tracheostomy hook under the second tracheal ring, cut in upside down you in the trachea anteriorly with a #15 blade, and placed a 2-0 Prolene rescue stitch in the tracheal flap. The endotracheal tube was deflated, and brought out of the trachea by anesthesia, and a #8 fenestrated Shiley ostomy tube was threaded into the trachea. The stylet was removed, breathing attachments affixed to the tracheostomy, and ventilator began breathing for the patient. CO2 levels were satisfactory, and there was adequate rise and fall the chest. The tracheostomy tube was secured to the neck skin at 4 sites with 2-0 Prolene suture and a cloth band was placed around the patient's neck to secure the tracheostomy tube. The patient tolerated this well and there was no desaturation significant bleeding or any other problems. We now took down the dressings, and expose the anterior abdominal wall. Dr. Kathleen also performed flexible endoscopy with the adult esophagoscope. The scope was advanced to the oropharynx. At this time poor dentition with periodon ava disease was noted with absence of many teeth, however there were no loose teeth found in the oropharynx during this maneuver. The esophagoscope was advanced through the esophagus, into the stomach where there was some retained gastric contents. The scope was advanced into the duodenum. The pylorus was unremarkable. The first and second portion of the duodenum were unremarkable. The scope was brought back through into the stomach and the stomach inflated with air. A suitable site for placement of the PEG tube was chosen in the left upper quadrant of the epigastric region. Skin was anesthetized 1% plain lidocaine, a jacob was made the skin with a 11 blade, and an angiocatheter threaded through the anterior abdominal wall into the lumen of the stomach. The green wire from the 20 [employer]oeye PEG tube was passed through the Jelco, and secured with the endoscopic snare. The wire, snare and wire were all brought out through the patient's oropharynx. A 20 [place] PEG tube threaded over the green wire and the green wire and PEG tube brought out through the anterior abdominal wall. Repeat endoscopy by Dr. Kathleen confirmed good positioning of the feeding tube easy rotation of the flange, no evidence of bleeding. The endoscope was withdrawn from the patient's oropharynx after decompressing the stomach of air. Appropriate bolstering adapters were fitted for the feeding tube. All drapes were removed, and operative sites inspected for any mechanical bleeding and there was none. There was some serous sanguinous drainage from around the tracheostomy tube. The patient tolerated the procedure well, taken to the recovery room in stable condition. A chest x-ray is pending at time dictation. I reviewed the above with the attendant honor bar who will continue managing the patient accordingly.
--- NOTE | 2020-04-24 16:41 | PDOC CRITICAL CARE PROG REPORT ---
General Date:: 04/24/20 ICU Day:: 13 Ventilator Day:: 13 Hospital Day:: 14 Resuscitation Status: Full Code Medical Power of Sales Commissions Analyst: Amber Events in the past 12 to 24 Hours:: No improvement in neurological status. 04/19: Opens eyes to voice. Does not clearly follow commands. Remains intubated. Hiccups today. Grossly edematous. 04/20: Significant change in neurological status. Remains intubated. Hiccuping again. Has not been getting as needed fentanyl. Still grossly edematous. Got 2 doses of furosemide yesterday. I/oh -200 mL yesterday. Creatinine 3.3>3.7. WBC 21>24.2, 1% bands. Platelet 601>643. Fever 100.4. Trach aspirate 04/15: 4+ PMNs, rare gram-positive cocci in pairs, isolating Isamar albicans/Isamar dubliniensis). On meropenem/daptomycin for polymicrobial infection of the foot. Not on DVT chemoprophylaxis due to recent surgery. GI PROPHYLAXIS: Protonix. 04/21: Appears to be more awake and alert today. Does seem to visually engage. 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 Continues to have low-grade fever with leukocytosis and thrombocytosis. WBC 24.7. Platelets 736. He is completed meropenem (7-day course). Still on daptomycin. Also on fluconazole. On tube feeds ([facility]). Tube feed residuals ranged from 20-300. DVT prophylaxis: Heparin. GI prophylaxis: Protonix. is at the bedside and expresses her wishes to pursue tracheostomy; however, she wishes to consult a close friend prior to making a final decision. 04/22: Sleeping comfortably. No significant neurologic change. Continues to have low-grade fever, leukocytosis and thrombocytosis. Arterial line removed yesterday. WBC 24.7>21.2. Platelets 736>761. Hemoglobin 7.6. Finished 7- day course of meropenem. Still on daptomycin and fluconazole. On tube feeds. Nurse reports high residuals. No BM. On senna and Colace. On morphine infusion for sedation on mechanical ventilator. 04/23: ID consult appreciated. Notation made of recommendations for antibiotic therapy for osteomyelitis. Antibiotics have been changed in the interim: 6-week course of Zosyn planned. Afebrile. WBC [id number]. Platelets [id number]. Hemoglobin 8.4. Tube feeds on hold for high residuals. Suspec rosa narcotic bowel. No BM despite glycerin suppository. Remains intubated on mechanical ventilatory support. Anticipating a decision from the patient's today to proceed with tracheostomy and percutaneous gastrostomy placement. DVT PROPHYLAXIS: Heparin. GI PROPHYLAXIS: Protonix. 04/24: Case discussed with Dr. Kathleen. Help appreciated. Anticipating tracheostomy and PEG placement. No significant interval change in neurologic status. Now on Zosyn (6-week course) for antibiotic therapy of osteomyelitis. Remains intubated and on mechanical ventilatory support. Temp 99.5. WBC 19.4 >18.1. Platelets 777>759. Creatinine 5.8, nonoliguric. Still no BM despite glycerin suppository, bisacodyl suppository, soapsuds enema. KUB shows nonobstructive bowel gas pattern. Review of systems relevant to events:: Neurological: Anoxic encephalopathy Respiratory: Prolonged mechanical ventilatory support Gastrointestinal: Constipation Musculoskeletal: Osteomyelitis right foot, left AKA Genitourinary: Acute nonoliguric renal failure Reason for ICU Addmission:: Post respiratorycardiac arrest, Intubated - Medications: Medications reviewed and adjusted accordingly: Yes Physical Exam Vital Signs: Temp Pulse Resp BP Pulse Ox 99.5 F 98 16 115/61 97 04/24/20 01:40 04/23/20 20:00 04/24/20 06:00 04/24/20 05:47 04/24/20 08:17 Intake & Output 04/23/20 04/24/20 04/25/20 06:59 06:59 06:59 Intake Total 1625 1500 Output Total 540 1810 130 Balance 1085 -310 -130 Weight 81.3 kg 83 kg Weight/Height Weight 83 kg Height 1.83 m General appearance: PRESENT: no acute distress Head exam: PRESENT: atraumatic, normocephalic Mouth exam: PRESENT: moist, tongue midline, other - Multiple missing teeth. Multiple loose teeth. Respiratory exam: PRESENT: clear to auscultation king. ABSENT: rales, rhonchi, wheezes Cardiovascular exam: PRESENT: RRR. ABSENT: diastolic murmur, rubs, systolic murmur GI/Abdominal exam: PRESENT: distended, hypoactive bowel sounds, soft. ABSENT: guarding, mass, organolmegaly, rebound, tenderness Rectal exam: PRESENT: normal rectal tone. ABSENT: black stool, bloody stool, heme (+) stool Extremities exam: PRESENT: other - Left AKA Musculoskeletal exam: PRESENT: other - Right foot bandaged. Dry granulation tissue. No purulent drainage. No foul odor. Tubes/Lines: PRESENT: Endotracheal Tube, Nasogastic Tube Laboratory/Radiographs Laboratory Results: 04/24/20 04:26 04/23/20 15:28 04/23/20 04/23/20 04/24/20 14:48 15:28 04:26 WBC 18.1 H RBC 2.92 L Hgb 7.8 L Hct 24.2 L MCV 83 MCH 26.6 L MCHC 32.2 RDW 16.0 H Plt Count 759 H Seg Neutrophils % 82.7 H Carbonic Acid HCO3/H2CO3 Ratio ABG pH ABG pCO2 ABG pO2 ABG HCO3 ABG O2 Saturation ABG Base Excess FiO2 Sodium Cancelled 146.9 H Potassium Cancelled 4.8 Chloride Cancelled 114 H Carbon Dioxide Cancelled 20 L Anion Gap Cancelled 13 BUN Cancelled 46 H Creatinine Cancelled 4.57 H Est GFR ( Amer) Cancelled 16 L Est GFR (Non-Af Amer) Cancelled Glucose Cancelled 135 H Calcium Cancelled 8.7 Phosphorus Magnesium 04/24/20 04/24/20 04:26 05:25 WBC RBC Hgb Hct MCV MCH MCHC RDW Plt Count Seg Neutrophils % Carbonic Acid 1.09 HCO3/H2CO3 Ratio 16:1 ABG pH 7.31 L ABG pCO2 36.3 ABG pO2 64.1 L ABG HCO3 18.0 L ABG O2 Saturation 90.9 L ABG Base Excess -7.5 FiO2 40% Sodium Potassium Chloride Carbon Dioxide Anion Gap BUN Creatinine Est GFR ( Amer) Est GFR (Non-Af Amer) Glucose Calcium Phosphorus 7.2 H Magnesium 2.6 H 04/11/20 04/11/20 04/11/20 01:02 01:02 15:35 Creatine Kinase 743 H CK-MB (CK-2) 2.41 Troponin I 0.077 0.261 04/13/20 04/13/20 04/16/20 04:43 04:43 14:30 Creatine Kinase 540 H 213 H CK-MB (CK-2) Troponin I 0.126 Impressions: Foot X-Ray 04/09/20 20:34 IMPRESSION: Findings are consistent with osteomyelitis involving the lateral aspect of the fifth metatarsal base. Associated underlying pathologic fracture deformity. Superimposed foci of soft tissue gas at this site could indicate infection with a gas-forming organism. copyright 2010 [employer]- All Rights Reserved Abdomen/Pelvis CT 04/11/20 00:00 IMPRESSION: NO SIGNIFICANT OR ACUTE PROCESS IN THE ABDOMEN OR PELVIS. Chest CT 04/11/20 00:00 IMPRESSION: MILD CARDIOMEGALY. BILATERAL PLEURAL EFFUSIONS WITH FAINT ATELECTASIS. NO LOBAR INFILTRATES. Head CT 04/15/20 05:00 IMPRESSION: NORMAL BRAIN CT WITHOUT CONTRAST. SINUS DISEASE. EVIDENCE OF ACUTE STROKE: NO. Venous Doppler Study 04/20/20 00:00 IMPRESSION: NO EVIDENCE DVT OR SVT IN EITHER LEG. KUB X-Ray 04/23/20 00:00 IMPRESSION: NO RADIOGRAPHIC EVIDENCE FOR ACUTE ABDOMINAL DISEASE. Chest X-Ray 04/24/20 05:00 IMPRESSION: STABLE APPEARANCE OF THE CHEST. SUPPORT DEVICES UNCHANGED. All labs, radiographs, diagnostic studies and EKGs were personally reviewed: Yes In addition, reports of radiographic and diagnostic studies were read: Yes Assessment and Plan - Diagnosis (1) Acute respiratory failure with hypoxia and hypercapnia Is this a current diagnosis for this admission?: Yes Plan: Titrate vent settings based on ABG results. Anticipating tracheostomy and percutaneous gastrostomy placement soon. (2) Acute on chronic renal failure Qualifiers: Acute renal failure type: with acute tubular necrosis Chronic kidney disease stage: stage 4 (severe) Qualified Code(s): N17.0 - Acute kidney failure with tubular necrosis; N18.4 - Chronic kidney disease, stage 4 (severe) Is this a current diagnosis for this admission?: Yes Plan: Monitor urine output. Monitor serum creatinine. Avoid nephrotoxic drugs. Renal dosing of medications. (3) Hypokalemia Is this a current diagnosis for this admission?: Yes (4) Brain anoxic injury Is this a current diagnosis for this admission?: Yes (5) Osteomyelitis of ankle or foot, right, acute Is this a current diagnosis for this admission?: Yes Plan: Zosyn x6 weeks. This patient will need a PICC line placed. (6) Diabetic infection of right foot Is this a current diagnosis for this admission?: Yes (7) Microcytic anemia Is this a current diagnosis for this admission?: Yes (8) Thrombocytosis Is this a current diagnosis for this admission?: Yes (9) Constipation Qualifiers: Constipation type: drug induced constipation Qualified Code(s): K59.03 - Drug induced constipation Is this a current diagnosis for this admission?: Yes Critical Time Critical Time (minutes): 60 Level of Care: ICU -: 1. The care of a critical patient is a dynamic process. This note is a compliance representative synopsis but static in nature. The timeframe for treatments given in order is not necessarily the actual time these treatments may have been done. 2. This patient requires critical care secondary to ongoing requirements for therapy not offered or safe outside the critical care environment. Transfer to a lower level of care will result in altered life or limb morbidity and mortality. 3. Multidisciplinary rounds completed. 4. ABCDE bundle addressed.
--- NOTE | 2020-04-24 17:00 | RADIOLOGY REPORT (SQ) ---
EXAM DESCRIPTION: CHEST SINGLE VIEW IMAGES COMPLETED DATE/TIME: 04/24/2020 4:05 pm REASON FOR STUDY: Status post tracheostomy tube placement COMPARISON: Chest radiographs 04/24/2020. EXAM PARAMETERS: NUMBER OF VIEWS: One view. TECHNIQUE: Single frontal radiographic view of the chest acquired. RADIATION DOSE: NA LIMITATIONS: None. FINDINGS: LUNGS AND PLEURA: Increased central interstitial lung markings and patchy right mid lung a irspace opacities. Decreased retrocardiac consolidation. Left pleural effusion. MEDIASTINUM AND HILAR STRUCTURES: No masses. Contour normal. HEART AND VASCULAR STRUCTURES: Heart normal in size. Normal vasculature. BONES: No acute findings. HARDWARE: Interval removal of the endotracheal and enteric tube. Interval placement of a tracheostom y tube, which projects over the central airway with the tip terminating 5.3 cm above the ernesto. OTHER: No other significant finding. IMPRESSION: Lines and tubes as above with appropriately positioned tracheostomy tube. Increased interstitial lung markings and patchy right mid lung airspace opacities. Decreased retroca rdiac consolidation. Left pleural effusion. TECHNICAL DOCUMENTATION: JOB ID: [id number] 2010 [employer]- All Rights Reserved Reading location - IP/workstation name: [email or web address]
[2020-04-24] MEDS ORDERED: SODIUM HYPOCHLORITE 0.25% SOLN 473 ML BOTTLE ONE (17:27)
--- NOTE | 2020-04-24 17:43 | Progress Note ---
Provider Note Provider Note: Patient underwent tracheostomy and percutaneous gastrostomy placement earlier this afternoon. Case discussed with Dr. Kathleen. Right foot bandage was also taken down and examined. Dr. Kathleen's input appreciated. While there is very minimal purulent drainage. It is clear that there is bony erosion secondary to osteomyelitis. Continue definitive management for this patient will need to include a left lower extremity amputation procedure to reduce the infectious burden. Microbiology data was reviewed again today (after changing to Zosyn yesterday). However, in retrospect, it appears meropenem may provide superior coverage for the isolated organisms. Additionally, ciprofloxacin would provide additional antipseudomonal coverage.
[2020-04-24] MEDS: SODIUM HYPOCHLORITE 0.25% SOLN 473 ML BOTTLE TP PRN (18:00)
[2020-04-24 18:22] LABS: ARTERIAL BLOOD BASE EXCESS -8.7 mmol/L; ARTERIAL BLOOD FIO2 40%; ARTERIAL BLOOD H2CO3 1.04 mmol/L (1.05-1.35); ARTERIAL BLOOD HCO3 16.8 mmol/L (20-24); ARTERIAL BLOOD O2 SATURATION 92.7 % (94-98); ARTERIAL BLOOD PCO2 34.6 mmHg (35-45); ARTERIAL BLOOD TOTAL CO2 17.9 mmol/L (23-27)
[2020-04-24] MEDS: RINGERS SOLUTION,LACTATED 1,000 ML IV PRN (18:30)
[2020-04-24] MEDS: CIPROFLOXACIN 400 MG/D5W RTU 400 MG/200 ML RTUPB IV SCH (18:37)
[2020-04-24 19:29] LABS: ANION GAP 11 (5-19); BLOOD UREA NITROGEN 47 mg/dL (7-20); CALCIUM 8.5 mg/dL (8.4-10.2); CARBON DIOXIDE 20 mmol/L (22-30); CHLORIDE 116 mmol/L (98-107); GLUCOSE 176 mg/dL (75-110); POTASSIUM 4.5 mmol/L (3.6-5.0)
[2020-04-24] MEDS ORDERED: MEROPENEM 500 MG VIAL IV PRN (19:37)
[2020-04-24] MEDS ORDERED: MEROPENEM 500 MG in NORMAL SALINE 50 ML IV ONE (19:45)
[2020-04-24] MEDS ORDERED: MEROPENEM 500 MG VIAL ONE (20:58)
[2020-04-24] MEDS: INSULIN GLARGINE,HUM.REC.ANLOG 1,000 UNIT/10 ML VIAL SUBCUT SCH (21:25)
[2020-04-25] MEDS: SODIUM HYPOCHLORITE 0.25% SOLN 473 ML BOTTLE TP PRN (01:29)
[2020-04-25] MEDS: HYDRALAZINE HCL 50 MG TABLET PO SCH ×3 (03:48→16:31)
[2020-04-25] MEDS: ACETAMINOPHEN SOLN 325 MG/10.15 ML UDCUP PO PRN ×2 (03:51→22:48)
[2020-04-25 04:15] LABS: HEMATOCRIT 22.2 % (37.9-51.0); MEAN CORPUSCULAR HEMOGLOBIN 27.1 pg (27.0-33.4); MEAN CORPUSCULAR VOLUME 82 fl (80-97); PLATELET COUNT 646 10^3/uL (150-450); RED CELL DISTRIBUTION WIDTH 15.5 % (11.5-14.0); WHITE BLOOD COUNT 14.9 10^3/uL (4.0-10.5)
[2020-04-25 04:16] LABS: HEMOGLOBIN 7.3 g/dL (13.5-17.0)
[2020-04-25 04:44] LABS: ALBUMIN 2.9 g/dL (3.5-5.0); ALKALINE PHOSPHATASE 85 U/L (38-126); ANION GAP 11 (5-19); ASPARTATE AMINO TRANSFERASE 50 U/L (17-59); BILIRUBIN,DIRECT 0.3 mg/dL (0.0-0.4); BILIRUBIN,TOTAL 0.7 mg/dL (0.2-1.3); BLOOD UREA NITROGEN 49 mg/dL (7-20); CALCIUM 8.3 mg/dL (8.4-10.2); CARBON DIOXIDE 21 mmol/L (22-30); CHLORIDE 116 mmol/L (98-107); GLUCOSE 149 mg/dL (75-110); PHOSPHORUS 5.4 mg/dL (2.5-4.5); POTASSIUM 3.8 mmol/L (3.6-5.0); TOTAL PROTEIN 6.4 g/dL (6.3-8.2)
[2020-04-25] MEDS: METOCLOPRAMIDE HCL INJ/PF 10 MG/2 ML SDV IV SCH ×2 (05:39→12:47)
[2020-04-25] MEDS: INSULIN REG, HUMAN 100 UNIT/ML 3 ML VIAL (PYX) SUBCUT SCH ×3 (05:39→17:30)
[2020-04-25] MEDS: HEPARIN SOD (PORCINE) 5,000 UNIT/ML 1 ML VIAL SUBCUT SCH ×3 (05:39→22:48)
[2020-04-25] MEDS: AMLODIPINE BESYLATE 5 MG TABLET PO SCH ×2 (05:39→17:31)
[2020-04-25 05:40] LABS: ARTERIAL BLOOD BASE EXCESS -2.9 mmol/L; ARTERIAL BLOOD H2CO3 0.78 mmol/L (1.05-1.35); ARTERIAL BLOOD HCO3 19.9 mmol/L (20-24); ARTERIAL BLOOD PO2 72.3 mmHg (80-100); ARTERIAL BLOOD TOTAL CO2 20.7 mmol/L (23-27)
[2020-04-25] MEDS: MEROPENEM 500 MG in NORMAL SALINE 50 ML IV SCH ×2 (05:41→17:29)
[2020-04-25 05:43] LABS: ARTERIAL BLOOD FIO2 40%
--- NOTE | 2020-04-25 08:53 | PDOC PROGRESS REPORT ---
Subjective Progress Note for:: 04/25/20 Reason For Visit: RIGHT FOOT GAS GANGRENE,DIABETES,CKD Patient remains on ventilator, minimal support; remains with eyes open, localizing to pain. No complications overnight Physical Exam Vital Signs: Temp Pulse Resp BP Pulse Ox 100.9 F H 90 24 H 104/50 L 100 04/25/20 05:34 04/25/20 08:00 04/25/20 06:00 04/25/20 05:43 04/25/20 06:00 Intake & Output 04/24/20 04/25/20 04/26/20 06:59 06:59 06:59 Intake Total 1500 1700 Output Total 1810 1275 100 Balance -310 425 -100 Weight 83 kg 81.3 kg General appearance: PRESENT: other - Remains on ventilator Mouth exam: PRESENT: other - Tongue edema slightly diminished; Teeth exam: PRESENT: dental caries Neck exam: PRESENT: tracheostomy GI/Abdominal exam: PRESENT: other - Abdomen examined. PEG tube to drain: Abdomen remains moderately distended. Musculoskeletal exam: PRESENT: other - Foot dressing removed. [place] drains from operative debridement 2 weeks ago removed. Some seropurulent drainage from the center of the foot, with exposed debrided bone Results Laboratory Results: 04/25/20 04:03 04/25/20 04:03 04/24/20 04/24/20 04/24/20 12:50 18:06 19:00 WBC RBC Hgb Hct MCV MCH MCHC RDW Plt Count Carbonic Acid 1.10 1.04 L HCO3/H2CO3 Ratio 16:1 16:1 ABG pH 7.31 L 7.30 L ABG pCO2 36.6 34.6 L ABG pO2 62.1 L 70.0 L ABG HCO3 17.9 L 16.8 L ABG O2 Saturation 89.9 L 92.7 L ABG Base Excess -7.7 -8.7 FiO2 40% 40% Sodium 146.9 H Potassium 4.5 Chloride 116 H Carbon Dioxide 20 L Anion Gap 11 BUN 47 H Creatinine 4.89 H Est GFR ( Amer) 15 L Glucose 176 H Lactic Acid Calcium 8.5 Phosphorus Magnesium Total Bilirubin AST Alkaline Phosphatase Total Protein Albumin 04/24/20 04/25/20 04/25/20 19:00 04:03 04:03 WBC 14.9 H RBC 2.70 L Hgb 7.3 L Hct 22.2 L MCV 82 MCH 27.1 MCHC 33.0 RDW 15.5 H Plt Count 646 H Carbonic Acid HCO3/H2CO3 Ratio ABG pH ABG pCO2 ABG pO2 ABG HCO3 ABG O2 Saturation ABG Base Excess FiO2 Sodium 147.8 H Potassium 3.8 Chloride 116 H Carbon Dioxide 21 L Anion Gap 11 BUN 49 H Creatinine 4.65 H Est GFR ( Amer) 16 L Glucose 149 H Lactic Acid 0.8 Calcium 8.3 L Phosphorus 5.4 H Magnesium 2.7 H Total Bilirubin 0.7 AST 50 Alkaline Phosphatase 85 Total Protein 6.4 Albumin 2.9 L 04/25/20 05:23 WBC RBC Hgb Hct MCV MCH MCHC RDW Plt Count Carbonic Acid 0.78 L HCO3/H2CO3 Ratio 25:1 ABG pH 7.50 H ABG pCO2 26.0 L ABG pO2 72.3 L ABG HCO3 19.9 L ABG O2 Saturation 96.0 ABG Base Excess -2.9 FiO2 40% Sodium Potassium Chloride Carbon Dioxide Anion Gap BUN Creatinine Est GFR ( Amer) Glucose Lactic Acid Calcium Phosphorus Magnesium Total Bilirubin AST Alkaline Phosphatase Total Protein Albumin 04/21/20 13:30 Catheter Tip - Arterial Catheter Tip Culture - Final NO GROWTH 3 DAYS 04/11/20 04/11/20 04/11/20 01:02 01:02 15:35 Creatine Kinase 743 H CK-MB (CK-2) 2.41 Troponin I 0.077 0.261 04/13/20 04/13/20 04/16/20 04:43 04:43 14:30 Creatine Kinase 540 H 213 H CK-MB (CK-2) Troponin I 0.126 Impressions: Foot X-Ray 04/09/20 20:34 IMPRESSION: Findings are consistent with osteomyelitis involving the lateral aspect of the fifth metatarsal base. Associated underlying pathologic fracture deformity. Superimposed foci of soft tissue gas at this site could indicate infection with a gas-forming organism. copyright 2011 [email or web address]- All Rights Reserved Abdomen/Pelvis CT 04/11/20 00:00 IMPRESSION: NO SIGNIFICANT OR ACUTE PROCESS IN THE ABDOMEN OR PELVIS. Chest CT 04/11/20 00:00 IMPRESSION: MILD CARDIOMEGALY. BILATERAL PLEURAL EFFUSIONS WITH FAINT ATELECTASIS. NO LOBAR INFILTRATES. Head CT 04/15/20 05:00 IMPRESSION: NORMAL BRAIN CT WITHOUT CONTRAST. SINUS DISEASE. EVIDENCE OF ACUTE STROKE: NO. Venous Doppler Study 04/20/20 00:00 IMPRESSION: NO EVIDENCE DVT OR SVT IN EITHER LEG. KUB X-Ray 04/23/20 00:00 IMPRESSION: NO RADIOGRAPHIC EVIDENCE FOR ACUTE ABDOMINAL DISEASE. Chest X-Ray 04/24/20 05:00 IMPRESSION: STABLE APPEARANCE OF THE CHEST. SUPPORT DEVICES UNCHANGED. Assessment & Plan - Diagnosis (1) Diabetic infection of right foot Is this a current diagnosis for this admission?: Yes Plan: Impression: Patient tolerated open trach and PEG placement yesterday without difficulty; patient continues to have ileus likely due to narcotic use with PEG tube to straight drain. Right foot with persisting tissue and bone infection, likely source of low-grade, chronic sepsis Recommendations: 1. Discussed patient's condition with mail delivery supervisor. Patient is overall prognosis poor given his anoxic brain injury. Apparently patient's , healthcare power of washing machine mechanic, would like patient placed in a retirement facility. If so, patient will need to undergo right leg amputation, likely [id number] amputation. 2. I attempted to contact patient's was unsuccessful. We will try again to communicate with her our recommendations for right [id number] amputation this week to assist with his acute septic management, and eventual placement in a long-term facility. - Time Time Spent: 30 to 50 Minutes
[2020-04-25] MEDS: METHYLPHENIDATE HCL 5 MG TABLET PO SCH ×2 (10:38→12:44)
[2020-04-25] MEDS ORDERED: FUROSEMIDE INJ/PF 40 MG/4 ML SDV IV PRN (10:39)
[2020-04-25] MEDS: PANTOPRAZOLE SODIUM 40 MG VIAL IV SCH (10:39)
[2020-04-25] MEDS ORDERED: NORMAL SALINE 250 ML IV PRN ×2 (10:39)
[2020-04-25] MEDS: METOPROLOL TARTRATE 50 MG TABLET PO SCH ×2 (10:39→22:47)
[2020-04-25] MEDS: CARBIDOPA/LEVODOPA 10-100 MG TABLET PO SCH (10:39)
[2020-04-25] MEDS: ASPIRIN 81 MG TABLET, ENT COATED PO SCH (10:39)
[2020-04-25] MEDS: SENNOSIDES/DOCUSATE 8.6-50 MG 1 EACH TABLET NG SCH ×2 (10:39→22:47)
[2020-04-25 14:41] LABS: ARTERIAL BLOOD BASE EXCESS -4.3 mmol/L; ARTERIAL BLOOD HCO3 20.6 mmol/L (20-24); ARTERIAL BLOOD PCO2 36.4 mmHg (35-45); ARTERIAL BLOOD PH 7.37 (7.35-7.45); ARTERIAL BLOOD PO2 67.2 mmHg (80-100); ARTERIAL BLOOD TOTAL CO2 21.7 mmol/L (23-27)
[2020-04-25 14:42] LABS: ARTERIAL BLOOD FIO2 40%
--- NOTE | 2020-04-25 15:33 | RADIOLOGY REPORT (SQ) ---
EXAM DESCRIPTION: CT ABD/PELVIS ORAL ONLY IMAGES COMPLETED DATE/TIME: 04/25/2020 3:12 pm REASON FOR STUDY: constipation COMPARISON: 04/11/2020 TECHNIQUE: CT scan of the abdomen and pelvis performed with oral contrast and no intravenous contras t. Images reviewed with lung, soft tissue, and bone windows. Reconstructed coronal and sagittal MPR i mages reviewed. All images stored on PACS. All CT scanners at this facility use dose modulation, iterative reconstruction, and/or weight based d osing when appropriate to reduce radiation dose to as low as reasonably achievable (ALARA). [facility]: Dose Right [facility]: CareDose [facility]: Dose Right [facility]: Teradose 4D [facility]: Smart doxIQ RADIATION DOSE: CT Rad equipment meets quality standard of care and radiation dose reduction techniq ues were employed. CTDIvol: 17.2 mGy. DLP: 937 mGy-cm.mGy. LIMITATIONS: None. FINDINGS: LOWER CHEST: Moderate bilateral pleural effusions and basilar atelectasis, increased vitor red with the prior study. NON-CONTRASTED LIVER, SPLEEN, ADRENALS: Evaluation limited by lack of IV contrast. No identified sign ificant masses. PANCREAS: No masses. No peripancreatic inflammatory changes. GALLBLADDER: No identified stones by CT criteria. No inflammatory changes to suggest cholecystitis. RIGHT KIDNEY AND URETER: No solid masses. No significant calcification. No hydronephrosis or hydroure ter. LEFT KIDNEY AND URETER: No solid masses. No significant calcification. No hydronephrosis or hydrouret er. AORTA AND RETROPERITONEUM: No aneurysm. No retroperitoneal masses or adenopathy. BOWEL AND PERITONEAL CAVITY: Postprocedural changes from recent G-tube placement with small amounts o f peritoneal free air. Contrast is present in the stomach and small bowel. No obstruction. Trace f ree fluid. APPENDIX: Not visualized. PELVIS, BLADDER, AND ABDOMINAL WALL: Small amount of pelvic free fluid. Diffuse body wall edema. No abdominal wall hernias. Bladder is decompressed by James catheter. BONES: No acute findings. OTHER: No other significant finding. IMPRESSION: Postprocedural changes from recent G-tube placement with small amounts of peritoneal margie e air. Contrast is present in the stomach and small bowel. Moderate bilateral pleural effusions and basilar atelectasis, increased compared with the prior study . TECHNICAL DOCUMENTATION: JOB ID: [id number] [id number] Quality ID # [id number]: Final reports with documentation of one or more dose reduction techniques (e.g., Au tomated exposure control, adjustment of the mA and/or kV according to patient size, use of iterative reconstruction technique) 2010 [employer]- All Rights Reserved Reading location - IP/workstation name: [email or web address]
--- NOTE | 2020-04-25 16:16 | PDOC CRITICAL CARE PROG REPORT ---
General Date:: 04/25/20 ICU Day:: 14 Ventilator Day:: 14 Hospital Day:: 15 Resuscitation Status: Full Code Medical Power of Radiological Health Specialist: Amber Events in the past 12 to 24 Hours:: No improvement in neurological status. 04/19: Opens eyes to voice. Does not clearly follow commands. Remains intubated. Hiccups today. Grossly edematous. 04/20: Significant change in neurological status. Remains intubated. Hiccuping again. Has not been getting as needed fentanyl. Still grossly edematous. Got 2 doses of furosemide yesterday. I/oh -200 mL yesterday. Creatinine 3.3>3.7. WBC 21>24.2, 1% bands. Platelet 601>643. Fever 100.4. Trach aspirate 04/15: 4+ PMNs, rare gram-positive cocci in pairs, isolating Isamar albicans/Isamar dubliniensis). On meropenem/daptomycin for polymicrobial infection of the foot. Not on DVT chemoprophylaxis due to recent surgery. GI PROPHYLAXIS: Protonix. 04/21: Appears to be more awake and alert today. Does seem to visually engage. Demonstrating left hand chief security and safety officer today, questionable as to whether this is voluntary. Continues to have low-grade fever with leukocytosis and thrombocytosis. WBC 24.7. Platelets 736. He is completed meropenem (7-day course). Still on daptomycin. Also on fluconazole. On tube feeds ([facility]). Tube feed residuals ranged from 20-300. DVT prophylaxis: Heparin. GI prophylaxis: Protonix. is at the bedside and expresses her wishes to pursue tracheostomy; however, she wishes to consult a close friend prior to making a final decision. 04/22: Sleeping comfortably. No significant neurologic change. Continues to have low-grade fever, leukocytosis and thrombocytosis. Arterial line removed yesterday. WBC 24.7>21.2. Platelets 736>761. Hemoglobin 7.6. Finished 7- day course of meropenem. Still on daptomycin and fluconazole. On tube feeds. Nurse reports high residuals. No BM. On senna and Colace. On morphine infusion for sedation on mechanical ventilator. 04/23: ID consult appreciated. Notation made of recommendations for antibiotic therapy for osteomyelitis. Antibiotics have been changed in the interim: 6-week course of Zosyn planned. Afebrile. WBC [phone]. Platelets [id number]. Hemoglobin 8.4. Tube feeds on hold for high residuals. Suspec rosa narcotic bowel. No BM despite glycerin suppository. Remains intubated on mechanical ventilatory support. Anticipating a decision from the patient's today to proceed with tracheostomy and percutaneous gastrostomy placement. DVT PROPHYLAXIS: Heparin. GI PROPHYLAXIS: Protonix. 04/24: Case discussed with Dr. Kathleen. Help appreciated. Anticipating tracheostomy and PEG placement. No significant interval change in neurologic status. Now on Zosyn (6-week course) for antibiotic therapy of osteomyelitis. Remains intubated and on mechanical ventilatory support. Temp 99.5. WBC 19.4 >18.1. Platelets 777>759. Creatinine 5.8, nonoliguric. Still no BM despite glycerin suppository, bisacodyl suppository, soapsuds enema. KUB shows nonobstructive bowel gas pattern. 04/25: Had tracheostomy and PEG placement yesterday. No postoperative complications. Right foot bandage was taken down again yesterday afternoon. Surgical site was on packed, revealing blue-green stained dressings, consistent with Pseudomonas infection. Also, there appears to be blue-green biofilm developing over the right cuboid. Dakin's solution started by Dr. Kathleen. Antibiotics were changed to meropenem/ciprofloxacin after review of sensitivity data. Remains on mechanical ventilatory support via tracheostomy. Fever 100.9. WBC 18.1>14.9. Hemoglobin 7.3 today. Platelets 759>646. Off sedation. Off narcotics. Still no BM. Review of systems relevant to events:: Neurological: Anoxic encephalopathy Respiratory: Prolonged mechanical ventilatory support Gastrointestinal: Constipation Musculoskeletal: Osteomyelitis right foot, left AKA Genitourinary: Acute nonoliguric renal failure Hematologic: Anemia, leukocytosis, thrombocytosis Reason for ICU Addmission:: Post respiratorycardiac arrest, Intubated - Medications: Medications reviewed and adjusted accordingly: Yes Physical Exam Vital Signs: Temp Pulse Resp BP Pulse Ox 100.9 F H 90 24 H 104/50 L 100 04/25/20 05:34 04/25/20 08:00 04/25/20 06:00 04/25/20 05:43 04/25/20 09:31 Intake & Output 04/24/20 04/25/20 04/26/20 06:59 06:59 06:59 Intake Total 1500 1700 Output Total 1810 1275 100 Balance -310 425 -100 Weight 83 kg 81.3 kg Weight/Height Weight 81.3 kg Height 1.83 m General appearance: PRESENT: no acute distress, well-developed, well-nourished Head exam: PRESENT: atraumatic, normocephalic Eye exam: PRESENT: conjunctiva pink, EOMI, PERRLA. ABSENT: scleral icterus Mouth exam: PRESENT: moist, tongue midline, other - Purulent drainage has subsided. Teeth exam: PRESENT: other - Multiple missing teeth. Respiratory exam: PRESENT: clear to auscultation king. ABSENT: rales, rhonchi, wheezes Cardiovascular exam: PRESENT: RRR. ABSENT: diastolic murmur, rubs, systolic murmur GI/Abdominal exam: PRESENT: distended, soft, tenderness. ABSENT: guarding, mass, organolmegaly, rebound Extremities exam: PRESENT: other - AKA.. ABSENT: joint swelling Musculoskeletal exam: PRESENT: other Tubes/Lines: PRESENT: Peg Tube, Other - Tracheostomy Laboratory/Radiographs Laboratory Results: 04/25/20 04:03 04/25/20 04:03 04/24/20 04/24/20 04/24/20 12:50 18:06 19:00 WBC RBC Hgb Hct MCV MCH MCHC RDW Plt Count Carbonic Acid 1.10 1.04 L HCO3/H2CO3 Ratio 16:1 16:1 ABG pH 7.31 L 7.30 L ABG pCO2 36.6 34.6 L ABG pO2 62.1 L 70.0 L ABG HCO3 17.9 L 16.8 L ABG O2 Saturation 89.9 L 92.7 L ABG Base Excess -7.7 -8.7 FiO2 40% 40% Sodium 146.9 H Potassium 4.5 Chloride 116 H Carbon Dioxide 20 L Anion Gap 11 BUN 47 H Creatinine 4.89 H Est GFR ( Amer) 15 L Glucose 176 H Lactic Acid Calcium 8.5 Phosphorus Magnesium Total Bilirubin AST Alkaline Phosphatase Total Protein Albumin 04/24/20 04/25/20 04/25/20 19:00 04:03 04:03 WBC 14.9 H RBC 2.70 L Hgb 7.3 L Hct 22.2 L MCV 82 MCH 27.1 MCHC 33.0 RDW 15.5 H Plt Count 646 H Carbonic Acid HCO3/H2CO3 Ratio ABG pH ABG pCO2 ABG pO2 ABG HCO3 ABG O2 Saturation ABG Base Excess FiO2 Sodium 147.8 H Potassium 3.8 Chloride 116 H Carbon Dioxide 21 L Anion Gap 11 BUN 49 H Creatinine 4.65 H Est GFR ( Amer) 16 L Glucose 149 H Lactic Acid 0.8 Calcium 8.3 L Phosphorus 5.4 H Magnesium 2.7 H Total Bilirubin 0.7 AST 50 Alkaline Phosphatase 85 Total Protein 6.4 Albumin 2.9 L 04/25/20 05:23 WBC RBC Hgb Hct MCV MCH MCHC RDW Plt Count Carbonic Acid 0.78 L HCO3/H2CO3 Ratio 25:1 ABG pH 7.50 H ABG pCO2 26.0 L ABG pO2 72.3 L ABG HCO3 19.9 L ABG O2 Saturation 96.0 ABG Base Excess -2.9 FiO2 40% Sodium Potassium Chloride Carbon Dioxide Anion Gap BUN Creatinine Est GFR ( Amer) Glucose Lactic Acid Calcium Phosphorus Magnesium Total Bilirubin AST Alkaline Phosphatase Total Protein Albumin 04/21/20 13:30 Catheter Tip - Arterial Catheter Tip Culture - Final NO GROWTH 3 DAYS 04/11/20 04/11/20 04/11/20 01:02 01:02 15:35 Creatine Kinase 743 H CK-MB (CK-2) 2.41 Troponin I 0.077 0.261 04/13/20 04/13/20 04/16/20 04:43 04:43 14:30 Creatine Kinase 540 H 213 H CK-MB (CK-2) Troponin I 0.126 Impressions: Foot X-Ray 04/09/20 20:34 IMPRESSION: Findings are consistent with osteomyelitis involving the lateral aspect of the fifth metatarsal base. Associated underlying pathologic fracture deformity. Superimposed foci of soft tissue gas at this site could indicate infection with a gas-forming organism. copyright 2010 [employer]- All Rights Reserved Abdomen/Pelvis CT 04/11/20 00:00 IMPRESSION: NO SIGNIFICANT OR ACUTE PROCESS IN THE ABDOMEN OR PELVIS. Chest CT 04/11/20 00:00 IMPRESSION: MILD CARDIOMEGALY. BILATERAL PLEURAL EFFUSIONS WITH FAINT ATELECTASIS. NO LOBAR INFILTRATES. Head CT 04/15/20 05:00 IMPRESSION: NORMAL BRAIN CT WITHOUT CONTRAST. SINUS DISEASE. EVIDENCE OF ACUTE STROKE: NO. Venous Doppler Study 04/20/20 00:00 IMPRESSION: NO EVIDENCE DVT OR SVT IN EITHER LEG. KUB X-Ray 04/23/20 00:00 IMPRESSION: NO RADIOGRAPHIC EVIDENCE FOR ACUTE ABDOMINAL DISEASE. Chest X-Ray 04/24/20 05:00 IMPRESSION: STABLE APPEARANCE OF THE CHEST. SUPPORT DEVICES UNCHANGED. Assessment and Plan - Diagnosis (1) Acute respiratory failure with hypoxia and hypercapnia Is this a current diagnosis for this admission?: Yes (2) Acute on chronic renal failure Qualifiers: Acute renal failure type: with acute tubular necrosis Chronic kidney disease stage: stage 4 (severe) Qualified Code(s): N17.0 - Acute kidney failure with tubular necrosis; N18.4 - Chronic kidney disease, stage 4 (severe) Is this a current diagnosis for this admission?: Yes (3) Hypokalemia Is this a current diagnosis for this admission?: Yes (4) Brain anoxic injury Is this a current diagnosis for this admission?: Yes (5) Osteomyelitis of ankle or foot, right, acute Is this a current diagnosis for this admission?: Yes (6) Diabetic infection of right foot Is this a current diagnosis for this admission?: Yes (7) Microcytic anemia Is this a current diagnosis for this admission?: Yes Plan: Hgb 7.3 today, normocytic. Given his acute on chronic kidney disease, I will transfuse 1 unit PRBC today. Check CBC in am. (8) Thrombocytosis Is this a current diagnosis for this admission?: Yes (9) Constipation Qualifiers: Constipation type: drug induced constipation Qualified Code(s): K59.03 - Drug induced constipation Is this a current diagnosis for this admission?: Yes Plan: Likely reflecting narcotic bowel. Continue to withhold morphine. Also, NG administration of naloxone may be considered. Critical Time Critical Time (minutes): 60 Level of Care: ICU -: 1. The care of a critical patient is a dynamic process. This note is a registered representative synopsis but static in nature. The timeframe for treatments given in order is not necessarily the actual time these treatments may have been done. 2. This patient requires critical care secondary to ongoing requirements for therapy not offered or safe outside the critical care environment. Transfer to a lower level of care will result in altered life or limb morbidity and mortality. 3. Multidisciplinary rounds completed. 4. ABCDE bundle addressed.
[2020-04-25] MEDS: RINGERS SOLUTION,LACTATED 1,000 ML IV PRN (16:22)
[2020-04-25] MEDS: BISACODYL 10 MG SUPP.RECT PR PRN (16:30)
[2020-04-25 16:52] LABS: ANION GAP 9 (5-19); BLOOD UREA NITROGEN 44 mg/dL (7-20); CALCIUM 8.1 mg/dL (8.4-10.2); CARBON DIOXIDE 20 mmol/L (22-30); CHLORIDE 117 mmol/L (98-107); GLUCOSE 169 mg/dL (75-110); POTASSIUM 3.9 mmol/L (3.6-5.0)
[2020-04-25] MEDS ORDERED: RINGERS SOLUTION,LACTATED 1,000 ML IV PRN (17:14)
[2020-04-25] MEDS ORDERED: CALCIUM GLUCONATE 1000 MG/10 ML INJ IV ONE ×2 (17:20→17:30)
[2020-04-25] MEDS ORDERED: POTASSI CL 20 MEQ/50 ML RIDER 20 MEQ/50 ML RTUPB IV ONE ×2 (17:20→17:30)
[2020-04-25] MEDS: CIPROFLOXACIN 400 MG/D5W RTU 400 MG/200 ML RTUPB IV SCH (17:29)
[2020-04-25 17:31] LABS: HEMATOCRIT 25.3 % (37.9-51.0); HEMOGLOBIN 8.1 g/dL (13.5-17.0); MEAN CORPUSCULAR HGB CONC 31.8 g/dL (32.0-36.0); MEAN CORPUSCULAR VOLUME 85 fl (80-97); PLATELET COUNT 619 10^3/uL (150-450); RED BLOOD COUNT 2.98 10^6/uL (4.35-5.55); RED CELL DISTRIBUTION WIDTH 15.7 % (11.5-14.0); WHITE BLOOD COUNT 16.7 10^3/uL (4.0-10.5)
[2020-04-25] MEDS: HYDRALAZINE HCL 25 MG TABLET PO SCH (22:47)
[2020-04-25] MEDS: INSULIN GLARGINE,HUM.REC.ANLOG 1,000 UNIT/10 ML VIAL SUBCUT SCH (22:48)
[2020-04-25] MEDS ORDERED: METOCLOPRAMIDE HCL INJ/PF 10 MG/2 ML SDV ONE (23:05)
[2020-04-25] MEDS ORDERED: METOCLOPRAMIDE HCL ORAL SOLN 10 MG/10 ML UDCUP ONE (23:09)
[2020-04-25] MEDS: METOCLOPRAMIDE HCL ORAL SOLN 10 MG/10 ML UDCUP GT SCH (23:18)
[2020-04-26] MEDS: INSULIN REG, HUMAN 100 UNIT/ML 3 ML VIAL (PYX) SUBCUT SCH ×4 (00:15→19:07)
[2020-04-26] MEDS: SODIUM HYPOCHLORITE 0.25% SOLN 473 ML BOTTLE TP PRN ×2 (01:56→14:22)
[2020-04-26] MEDS ORDERED: METOPROLOL TARTRATE PF/INJ 5 MG/5 ML SDV IV ONE ×2 (03:53→04:00)
[2020-04-26 05:02] LABS: ABSOLUTE BASOPHILS # (AUTO) 0.1 10^3/uL (0.0-0.2); ABSOLUTE EOSINOPHILS # (AUTO) 0.3 10^3/uL (0.0-0.6); ABSOLUTE LYMPHOCYTES (AUTO) 1.4 10^3/uL (0.5-4.7); ABSOLUTE MONOCYTES (AUTO) 1.2 10^3/uL (0.1-1.4); ABSOLUTE NEUT (AUTO) 11.6 10^3/uL (1.7-8.2); BASOPHILS % (AUTO) 0.6 % (0-2); HEMATOCRIT 25.7 % (37.9-51.0); HEMOGLOBIN 8.6 g/dL (13.5-17.0); LYMPHOCYTES % (AUTO) 9.7 % (13-45); MEAN CORPUSCULAR HEMOGLOBIN 27.8 pg (27.0-33.4); MEAN CORPUSCULAR HGB CONC 33.6 g/dL (32.0-36.0); MEAN CORPUSCULAR VOLUME 83 fl (80-97); MONOCYTES % (AUTO) 8.4 % (3-13); PLATELET COUNT 594 10^3/uL (150-450); RED CELL DISTRIBUTION WIDTH 15.6 % (11.5-14.0); SEGMENTED NEUTROPHILS % (AUTO) 79.3 % (42-78); TOTAL CELLS COUNTED % (AUTO) 100 %; WHITE BLOOD COUNT 14.6 10^3/uL (4.0-10.5)
[2020-04-26 05:15] LABS: ALBUMIN 2.7 g/dL (3.5-5.0); ALKALINE PHOSPHATASE 84 U/L (38-126); ANION GAP 10 (5-19); ASPARTATE AMINO TRANSFERASE 43 U/L (17-59); BILIRUBIN,DIRECT 0.2 mg/dL (0.0-0.4); BILIRUBIN,TOTAL 0.6 mg/dL (0.2-1.3); BLOOD UREA NITROGEN 43 mg/dL (7-20); CALCIUM 8.7 mg/dL (8.4-10.2); CARBON DIOXIDE 22 mmol/L (22-30); CHLORIDE 116 mmol/L (98-107); GLUCOSE 110 mg/dL (75-110); PHOSPHORUS 4.9 mg/dL (2.5-4.5); TOTAL PROTEIN 6.1 g/dL (6.3-8.2)
[2020-04-26 05:22] LABS: PREALBUMIN 7.8 mg/dL (17.6-36.0)
[2020-04-26] MEDS: HYDRALAZINE HCL 25 MG TABLET PO SCH (05:37)
[2020-04-26] MEDS: HEPARIN SOD (PORCINE) 5,000 UNIT/ML 1 ML VIAL SUBCUT SCH ×3 (05:37→21:32)
[2020-04-26] MEDS: MEROPENEM 500 MG in NORMAL SALINE 50 ML IV SCH ×2 (05:37→17:21)
[2020-04-26] MEDS: AMLODIPINE BESYLATE 5 MG TABLET PO SCH (05:38)
[2020-04-26 06:05] LABS: ARTERIAL BLOOD BASE EXCESS -1.4 mmol/L; ARTERIAL BLOOD H2CO3 1.04 mmol/L (1.05-1.35); ARTERIAL BLOOD HCO3 22.5 mmol/L (20-24); ARTERIAL BLOOD O2 SATURATION 97.4 % (94-98); ARTERIAL BLOOD PCO2 34.5 mmHg (35-45); ARTERIAL BLOOD PH 7.43 (7.35-7.45); ARTERIAL BLOOD PO2 92.9 mmHg (80-100); ARTERIAL BLOOD TOTAL CO2 23.6 mmol/L (23-27)
[2020-04-26 06:09] LABS: ARTERIAL BLOOD FIO2 50%
[2020-04-26] MEDS ORDERED: AMIODARONE HCL 150 MG in DEXTROSE 5%-WATER 100 ML IV ONE ×2 (06:18→06:42)
[2020-04-26] MEDS ORDERED: AMIODARONE HCL INJ 150 MG/3 ML VIAL IV ONE (06:26)
[2020-04-26] MEDS ORDERED: ISOSORBIDE MONONITRATE 20 MG TABLET GT SCH (07:00)
[2020-04-26] MEDS: METOCLOPRAMIDE HCL ORAL SOLN 10 MG/10 ML UDCUP GT SCH ×4 (08:00→21:32)
[2020-04-26] MEDS ORDERED: METOPROLOL SUCCINATE 50 MG TAB.SR.24H PO SCH (10:00)
--- NOTE | 2020-04-26 11:55 | PDOC CRITICAL CARE PROG REPORT ---
General Date:: 04/26/20 ICU Day:: 15 Ventilator Day:: 15 Hospital Day:: 16 Resuscitation Status: Full Code Medical Power of Executive Community Planning: Amber Events in the past 12 to 24 Hours:: No change in mental status. broached issue of amuputation of R leg with . Review of systems relevant to events:: Neurological, CV, respiratory. Reason for ICU Addmission:: Post respiratorycardiac arrest, Intubated - Medications: Medications reviewed and adjusted accordingly: Yes Vasopressors:: None Sedation:: None Physical Exam Vital Signs: Temp Pulse Resp BP Pulse Ox 100.0 F 99 16 113/62 95 04/26/20 05:30 04/25/20 19:59 04/26/20 06:00 04/26/20 05:54 04/26/20 09:58 Intake & Output 04/25/20 04/26/20 04/27/20 06:59 06:59 06:59 Intake Total 1700 2700 Output Total 1275 2785 Balance 425 -85 Weight 81.3 kg 80.6 kg Weight/Height Weight 80.6 kg Height 6 ft General appearance: PRESENT: thin Head exam: PRESENT: atraumatic, normocephalic Eye exam: PRESENT: conjunctiva pink, EOMI, PERRLA. ABSENT: scleral icterus Ear exam: PRESENT: normal external ear exam Mouth exam: PRESENT: moist, tongue midline, other - Tongue has multiple healing areas of previous bites. Neck exam: PRESENT: tracheostomy Respiratory exam: PRESENT: clear to auscultation king, decreased breath sounds, unlabored Cardiovascular exam: PRESENT: irregular rhythm, tachycardia GI/Abdominal exam: PRESENT: firm, normal bowel sounds, soft, other - PEG site clean. ABSENT: distended, guarding, mass, organolmegaly, rebound, tenderness Rectal exam: PRESENT: deferred Gentrourinary exam: PRESENT: indwelling catheter Extremities exam: PRESENT: other - L BKA and R foot debridement site. Neurological exam: PRESENT: other - Nearing a dx of persistant vegatative state. Skin exam: PRESENT: dry, intact, warm. ABSENT: cyanosis, rash Tubes/Lines: PRESENT: Peg Tube, Other - Tracheotomy Laboratory/Radiographs Laboratory Results: 04/26/20 04:32 04/26/20 04:32 04/25/20 04/25/20 04/25/20 11:11 14:20 16:26 WBC RBC Hgb Hct MCV MCH MCHC RDW Plt Count Seg Neutrophils % Carbonic Acid 1.10 HCO3/H2CO3 Ratio 18:1 ABG pH 7.37 ABG pCO2 36.4 ABG pO2 67.2 L ABG HCO3 20.6 ABG O2 Saturation 93.0 L ABG Base Excess -4.3 FiO2 40% Sodium 146.4 H Potassium 3.9 Chloride 117 H Carbon Dioxide 20 L Anion Gap 9 BUN 44 H Creatinine 4.55 H Est GFR ( Amer) 16 L Glucose 169 H Calcium 8.1 L Ionized Calcium Sujit Phosphorus Magnesium 2.5 H Total Bilirubin AST Alkaline Phosphatase Total Protein Albumin Prealbumin Blood Type A POSITIVE Antibody Screen NEGATIVE 04/25/20 04/25/20 04/26/20 16:26 16:26 04:32 WBC 16.7 H 14.6 H RBC 2.98 L 3.10 L Hgb 8.1 L 8.6 L Hct 25.3 L 25.7 L MCV 85 83 MCH 27.0 27.8 MCHC 31.8 L 33.6 RDW 15.7 H 15.6 H Plt Count 619 H 594 H Seg Neutrophils % 79.3 H Carbonic Acid HCO3/H2CO3 Ratio ABG pH ABG pCO2 ABG pO2 ABG HCO3 ABG O2 Saturation ABG Base Excess FiO2 Sodium Potassium Chloride Carbon Dioxide Anion Gap BUN Creatinine Est GFR ( Amer) Glucose Calcium Ionized Calcium Sujit 1.05 L Phosphorus Magnesium Total Bilirubin AST Alkaline Phosphatase Total Protein Albumin Prealbumin Blood Type Antibody Screen 04/26/20 04/26/20 04:32 05:49 WBC RBC Hgb Hct MCV MCH MCHC RDW Plt Count Seg Neutrophils % Carbonic Acid 1.04 L HCO3/H2CO3 Ratio 21:1 ABG pH 7.43 ABG pCO2 34.5 L ABG pO2 92.9 ABG HCO3 22.5 ABG O2 Saturation 97.4 ABG Base Excess -1.4 FiO2 50% Sodium 147.9 H Potassium 4.0 Chloride 116 H Carbon Dioxide 22 Anion Gap 10 BUN 43 H Creatinine 4.06 H Est GFR ( Amer) 18 L Glucose 110 Calcium 8.7 Ionized Calcium Sujit Phosphorus 4.9 H Magnesium 2.5 H Total Bilirubin 0.6 AST 43 Alkaline Phosphatase 84 Total Protein 6.1 L Albumin 2.7 L Prealbumin 7.8 L Blood Type Antibody Screen 04/24/20 17:10 Foot - Heel Gram Stain - Final 04/11/20 04/11/20 04/11/20 01:02 01:02 15:35 Creatine Kinase 743 H CK-MB (CK-2) 2.41 Troponin I 0.077 0.261 04/13/20 04/13/20 04/16/20 04:43 04:43 14:30 Creatine Kinase 540 H 213 H CK-MB (CK-2) Troponin I 0.126 Impressions: Foot X-Ray 04/09/20 20:34 IMPRESSION: Findings are consistent with osteomyelitis involving the lateral aspect of the fifth metatarsal base. Associated underlying pathologic fracture deformity. Superimposed foci of soft tissue gas at this site could indicate infection with a gas-forming organism. copyright 2010 [employer]- All Rights Reserved Chest CT 04/11/20 00:00 IMPRESSION: MILD CARDIOMEGALY. BILATERAL PLEURAL EFFUSIONS WITH FAINT ATELECTASIS. NO LOBAR INFILTRATES. Head CT 04/15/20 05:00 IMPRESSION: NORMAL BRAIN CT WITHOUT CONTRAST. SINUS DISEASE. EVIDENCE OF ACUTE STROKE: NO. Venous Doppler Study 04/20/20 00:00 IMPRESSION: NO EVIDENCE DVT OR SVT IN EITHER LEG. KUB X-Ray 04/23/20 00:00 IMPRESSION: NO RADIOGRAPHIC EVIDENCE FOR ACUTE ABDOMINAL DISEASE. Chest X-Ray 04/24/20 05:00 IMPRESSION: STABLE APPEARANCE OF THE CHEST. SUPPORT DEVICES UNCHANGED. Abdomen/Pelvis CT 04/25/20 00:00 IMPRESSION: Postprocedural changes from recent G-tube placement with small amounts of peritoneal free air. Contrast is present in the stomach and small bowel. Moderate bilateral pleural effusions and basilar atelectasis, increased compared with the prior study. EKG: Atrial fibrillation with a variable rate, mostly tachycardic. All labs, radiographs, diagnostic studies and EKGs were personally reviewed: Yes In addition, reports of radiographic and diagnostic studies were read: Yes Assessment and Plan - Diagnosis (1) Brain anoxic injury Is this a current diagnosis for this admission?: Yes Plan: He has had no response to ritalin and at 30 days will be at a persistant ve gatative state. (2) Cardiopulmonary arrest with successful resuscitation Is this a current diagnosis for this admission?: Yes Plan: Successful in terms of survivability but vegatative. (3) Chronic kidney disease Qualifiers: Chronic kidney disease stage: stage 4 (severe) Qualified Code(s): N18.4 - Chronic kidney disease, stage 4 (severe) Is this a current diagnosis for this admission?: Yes Plan: GFR still 18 but urine output up to 1900cc/24 hours. 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 (5) Diabetic infection of right foot Is this a current diagnosis for this admission?: Yes Plan: Likely would benefit from amputation. However the patient's is reluctant to give permission for an AKA. She is requesting a 2nd opinion to opine if an AKA s BKA is needed. (6) Ileus Is this a current diagnosis for this admission?: Yes Plan: Improved Plan Summary: Try to wean down to trach collar today. Await second opinion on amputation. Critical Time Critical Time (minutes): 35 Level of Care: ICU Anticipated discharge: Hospice Within: Other -: 1. The care of a critical patient is a dynamic process. This note is a patient care representative synopsis but static in nature. The timeframe for treatments given in order is not necessarily the actual time these treatments may have been done. 2. This patient requires critical care secondary to ongoing requirements for therapy not offered or safe outside the critical care environment. Transfer to a lower level of care will result in altered life or limb morbidity and mortality. 3. Multidisciplinary rounds completed. 4. ABCDE bundle addressed.
[2020-04-26] MEDS: PANTOPRAZOLE SODIUM 40 MG VIAL IV SCH (12:00)
[2020-04-26] MEDS: SENNOSIDES/DOCUSATE 8.6-50 MG 1 EACH TABLET NG SCH ×2 (12:02→21:32)
[2020-04-26] MEDS: ASPIRIN 81 MG TABLET, ENT COATED PO SCH (12:02)
[2020-04-26] MEDS: METOPROLOL TARTRATE 25 MG TABLET PEG SCH ×2 (12:03→21:32)
[2020-04-26] MEDS ORDERED: ACETAMINOPHEN SOLN 325 MG/10.15 ML UDCUP PEG PRN (12:30)
--- NOTE | 2020-04-26 12:36 | PDOC CONSULTATION ---
Consultation Consult Date: 04/26/20 Provider Consulted: Kayley AMADOR History of Present Illness Admission Date/PCP: 04/10/20 01:02 History of Present Illness: VITO FRANCISCO JR is a 59 year old male with a past medical history of chronic kidney disease stage IV, diabetes, peripheral vascular disease status post left AKA and hypertension. He came to the ER on 04/09 with complaint of 2 months of worsening right foot ulcer despite management at the wound care clinic. He was having increased erythema and pain. He was found to have a gas gangrene on imaging with leukocytosis. He also had an elevated creatinine of 2.3. Surgery was consulted recommended a aka of the right leg. He was admitted for further evaluation. The patient and his did not want to jump to a aka right away. He was given options of debridement of the right foot and grill cook antibiotics, AKA or transfer to [facility] where his vascular surgeon, Dr. Doshi can do further evaluation. He chose to have debridement. On 04/10 he had a debridement. On the early am of 04/11 he coded twice with achieving rosc both times. He was intubated during the code. He was then brought down to ICU where he remained intubated. His bp around the same time started to drop. He was given vasopressin, phenylephrine, fluids and levophed. With the fluids he was able to get of the vaso and phenylephrine. EEG on that day also showed dysfunction of his brain possible from an ischemia. On 04/12 his creatinine went from 2.3 to 3.0. He was given some IV fluids. On 04/15 he was started on diuretics. Around 04/16 he was placed on meropenem/daptomycin for his infection. On 04/19 he started to show a slight improvement neurologically. Creatinine on 04/20 was up to 3.3 from 3.7. Meropenem was completed on 04/21. White count was still elevated so on 04/23 ID was consulted who recommended the patient be placed on Zosyn. Patient was started on zoysn. On 04/24 creatinine peaked to 4.8. At the same time the was still wanting everything possible to be done. The patient has a trach placed on 04/24. On 04/25 his Zoysn was stopped and he was started on meropenem and cipro. He also had a peg tube placed for feeding. The patient remains on a vent attached to his trach. Neurologically he only responds to painful stimuli some of the time. Tube feeds have slowed. The at this time has still not determined that she wants her to have an AKA. Creatinine today is 4.0, sodium was 147.9, had good urine output yesterday with over 1800mLs. Patient did not react to any stimuli when examined. Past Medical History Cardiac Medical History: Reports: Coronary Artery Disease Pulmonary Medical History: Reports: Bronchitis - IN PAST Denies: Asthma, Chronic Obstructive Pulmonary Disease (COPD), Pneumonia Neurological Medical History: Denies: Seizures Endocrine Medical History: Reports: Diabetes Mellitus Type 2 Musculoskeltal Medical History: Denies: Arthritis Psychiatric Medical History: Denies: Alcohol Dependency, Depression, Tobacco Dependency Past Surgical History Past Surgical History: Reports: Orthopedic Surgery - Left AKA February 2020 Social History Lives with: Spouse/Significant other Smoking Status: Former Smoker Electronic Cigarette use?: No Frequency of Alcohol Use: None Hx Recreational Drug Use: No Drugs: None Hx Prescription Drug Abuse: No - Advance Directive Resuscitation Status: Full Code Family History Parental Family History Reviewed: No - patient neuroglically unable to answer Children Family History Reviewed: NA Sibling(s) Family History Reviewed.: NA Medication/Allergy Home Medications: Amlodipine Besylate [Norvasc 10 mg Tablet] 10 mg PO DAILY 08/16/16 Aspirin [Adult Low Dose Aspirin EC] 81 mg PO DAILY 04/10/20 Ferrous Sulfate [Feosol 325 mg Tablet] 325 mg PO DAILY 04/10/20 Gabapentin [Neurontin] 600 mg PO QPM 04/10/20 Insulin Glargine,Hum.rec.anlog [Lantus Insulin 100 Unit/1 ml 10 ml] 12 unit SQ QHS 04/10/20 Isosorbide Mononitrate [Imdur 30 mg Tablet.er] 30 mg PO DAILY 04/10/20 Losartan Potassium [Cozaar 25 mg Tablet] 25 mg PO DAILY 04/10/20 Metoprolol Succinate [Toprol Xl 50 mg Tab.sr] 50 mg PO DAILY 04/10/20 Tamsulosin HCl [Flomax] 0.4 mg PO QPM 04/10/20 Venlafaxine HCl ER [Effexor Xr 37.5 mg Cap.sr] 37.5 mg PO DAILY 04/10/20 Allergies/Adverse Reactions: No Known Allergies Allergy (Verified 04/09/20 21:34) Review of Systems ROS unobtainable: Due to endotracheal tube Physical Exam Vital Signs: Temp Pulse Resp BP Pulse Ox 100.0 F 106 H 10 L 120/62 94 04/26/20 05:30 04/26/20 08:00 04/26/20 11:00 04/26/20 10:54 04/26/20 11:26 Intake & Output 04/25/20 04/26/20 04/27/20 06:59 06:59 06:59 Intake Total 1700 2700 Output Total 1278 4845 Balance 425 -85 Weight 81.3 kg 80.6 kg General appearance: PRESENT: no acute distress, disheveled, well-developed, well-nourished, other - -trached, unresponsive to any stimuli. Eye exam: PRESENT: other - -fixed and pinpoint when examined. ABSENT: nystagmus, PERRLA Mouth exam: PRESENT: moist, neck supple Neck exam: ABSENT: JVD, tracheal deviation Respiratory exam: PRESENT: crackles, rales. ABSENT: accessory muscle use, clear to auscultation king, rhonchi, wheezes Cardiovascular exam: PRESENT: +S1, +S2 GI/Abdominal exam: PRESENT: distended, soft. ABSENT: firm, rigid Extremities exam: PRESENT: pedal edema, +2 edema. ABSENT: +1 edema Musculoskeletal exam: PRESENT: deformity - -left AKA, other - -bandage infection of the right foot. Neurological exam: PRESENT: other - -unresponsive to any stimuli. ABSENT: alert, awake, oriented to person, oriented to place, oriented to time, oriented to situation Skin exam: PRESENT: erythema. ABSENT: cyanosis Results Laboratory Results: 04/26/20 04:32 04/26/20 04:32 04/25/20 04/25/20 04/25/20 11:11 14:20 16:26 WBC RBC Hgb Hct MCV MCH MCHC RDW Plt Count Seg Neutrophils % Carbonic Acid 1.10 HCO3/H2CO3 Ratio 18:1 ABG pH 7.37 ABG pCO2 36.4 ABG pO2 67.2 L ABG HCO3 20.6 ABG O2 Saturation 93.0 L ABG Base Excess -4.3 FiO2 40% Sodium 146.4 H Potassium 3.9 Chloride 117 H Carbon Dioxide 20 L Anion Gap 9 BUN 44 H Creatinine 4.55 H Est GFR ( Amer) 16 L Glucose 169 H Calcium 8.1 L Ionized Calcium Sujit Phosphorus Magnesium 2.5 H Total Bilirubin AST Alkaline Phosphatase Total Protein Albumin Prealbumin Blood Type A POSITIVE Antibody Screen NEGATIVE 04/25/20 04/25/20 04/26/20 16:26 16:26 04:32 WBC 16.7 H 14.6 H RBC 2.98 L 3.10 L Hgb 8.1 L 8.6 L Hct 25.3 L 25.7 L MCV 85 83 MCH 27.0 27.8 MCHC 31.8 L 33.6 RDW 15.7 H 15.6 H Plt Count 619 H 594 H Seg Neutrophils % 79.3 H Carbonic Acid HCO3/H2CO3 Ratio ABG pH ABG pCO2 ABG pO2 ABG HCO3 ABG O2 Saturation ABG Base Excess FiO2 Sodium Potassium Chloride Carbon Dioxide Anion Gap BUN Creatinine Est GFR ( Amer) Glucose Calcium Ionized Calcium Sujit 1.05 L Phosphorus Magnesium Total Bilirubin AST Alkaline Phosphatase Total Protein Albumin Prealbumin Blood Type Antibody Screen 04/26/20 04/26/20 04:32 05:49 WBC RBC Hgb Hct MCV MCH MCHC RDW Plt Count Seg Neutrophils % Carbonic Acid 1.04 L HCO3/H2CO3 Ratio 21:1 ABG pH 7.43 ABG pCO2 34.5 L ABG pO2 92.9 ABG HCO3 22.5 ABG O2 Saturation 97.4 ABG Base Excess -1.4 FiO2 50% Sodium 147.9 H Potassium 4.0 Chloride 116 H Carbon Dioxide 22 Anion Gap 10 BUN 43 H Creatinine 4.06 H Est GFR ( Amer) 18 L Glucose 110 Calcium 8.7 Ionized Calcium Sujit Phosphorus 4.9 H Magnesium 2.5 H Total Bilirubin 0.6 AST 43 Alkaline Phosphatase 84 Total Protein 6.1 L Albumin 2.7 L Prealbumin 7.8 L Blood Type Antibody Screen 04/24/20 17:10 Foot - Heel Gram Stain - Final 04/11/20 04/11/20 04/11/20 01:02 01:02 15:35 Creatine Kinase 743 H CK-MB (CK-2) 2.41 Troponin I 0.077 0.261 04/13/20 04/13/20 04/16/20 04:43 04:43 14:30 Creatine Kinase 540 H 213 H CK-MB (CK-2) Troponin I 0.126 Impressions: Foot X-Ray 04/09/20 20:34 IMPRESSION: Findings are consistent with osteomyelitis involving the lateral aspect of the fifth metatarsal base. Associated underlying pathologic fracture deformity. Superimposed foci of soft tissue gas at this site could indicate infection with a gas-forming organism. copyright 2010 [employer]- All Rights Reserved Chest CT 04/11/20 00:00 IMPRESSION: MILD CARDIOMEGALY. BILATERAL PLEURAL EFFUSIONS WITH FAINT ATELECTASIS. NO LOBAR INFILTRATES. Head CT 04/15/20 05:00 IMPRESSION: NORMAL BRAIN CT WITHOUT CONTRAST. SINUS DISEASE. EVIDENCE OF ACUTE STROKE: NO. Venous Doppler Study 04/20/20 00:00 IMPRESSION: NO EVIDENCE DVT OR SVT IN EITHER LEG. KUB X-Ray 04/23/20 00:00 IMPRESSION: NO RADIOGRAPHIC EVIDENCE FOR ACUTE ABDOMINAL DISEASE. Chest X-Ray 04/24/20 05:00 IMPRESSION: STABLE APPEARANCE OF THE CHEST. SUPPORT DEVICES UNCHANGED. Abdomen/Pelvis CT 04/25/20 00:00 IMPRESSION: Postprocedural changes from recent G-tube placement with small amounts of peritoneal free air. Contrast is present in the stomach and small bowel. Moderate bilateral pleural effusions and basilar atelectasis, increased compared with the prior study. Assessment & Plan - Diagnosis (1) Acute on chronic renal failure Qualifiers: Acute renal failure type: with acute tubular necrosis Chronic kidney disease stage: stage 4 (severe) Qualified Code(s): N17.0 - Acute kidney failure with tubular necrosis; N18.4 - Chronic kidney disease, stage 4 (severe) Is this a current diagnosis for this admission?: Yes Plan: Nonolguric, when he was at 2.3 he looked to initially been elevated from ATN from his osteomylitis. Worsened when he coded on 04/11 and went hypotensive. Continued to elevate from ATN. Possible worsening with the addition of Zosyn. At this time continue off Zosyn. Avoid nephrotoxic drugs. Patient has great urine output. Will increase fluids to cause for his input to be slightly greater than 3L a day. Spoke with his nurse, Deepthi, about keeping him a little over 3L with the combination of tube feeds, antibiotics and saline. Will look to help to keep flushing the kidneys out. At this point I don't see an indication for [employer] nor do I think he is a great candidate. Adjust all medications to a GFR of less than 25. (2) Acute respiratory failure with hypoxia and hypercapnia Is this a current diagnosis for this admission?: Yes Plan: now on a trach, per it infrastructure engineer. (3) Brain anoxic injury Is this a current diagnosis for this admission?: Yes Plan: looks to be a poor prognosis. (4) Chronic kidney disease Qualifiers: Chronic kidney disease stage: stage 4 (severe) Qualified Code(s): N18.4 - Chronic kidney disease, stage 4 (severe) Is this a current diagnosis for this admission?: Yes Plan: apparent underlining CKD, he is not know to the local practice here in [facility]. Unfortunately with his current state labs that would normally be elevated with CKD will also be with his current JENNIFER. 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 Unfortunately with his current state it is not recommended to give iron or retacrit. - Notes Notes: case was discussed with Dr. Amador.
[2020-04-26] MEDS: METHYLPHENIDATE HCL 5 MG TABLET PO SCH (12:38)
[2020-04-26] MEDS: CARBIDOPA/LEVODOPA 10-100 MG TABLET PO SCH (12:39)
[2020-04-26] MEDS ORDERED: METHYLPHENIDATE HCL 5 MG TABLET PEG SCH (13:00)
[2020-04-26] MEDS: RINGERS SOLUTION,LACTATED 1,000 ML IV PRN (14:24)
[2020-04-26] MEDS: ASPIRIN 81 MG TABLET, CHEWABLE PEG SCH (14:33)
[2020-04-26] MEDS: HYDRALAZINE HCL 25 MG TABLET PEG SCH ×2 (14:35→21:32)
--- NOTE | 2020-04-26 14:58 | EKG REPORT ---
SEVERITY:- ABNORMAL ECG - ATRIAL FIBRILLATION VENTRICULAR PREMATURE COMPLEX LOW VOLTAGE IN FRONTAL LEADS NONSPECIFIC T ABNORMALITIES, ANT-LAT LEADS : Confirmed by: Anisha Alfaro MD 26-Apr-2020 14:57:42
[2020-04-26] MEDS: AMLODIPINE BESYLATE 5 MG TABLET PEG SCH (17:21)
[2020-04-26] MEDS: CIPROFLOXACIN 400 MG/D5W RTU 400 MG/200 ML RTUPB IV SCH (17:21)
[2020-04-26] MEDS: INSULIN GLARGINE,HUM.REC.ANLOG 1,000 UNIT/10 ML VIAL SUBCUT SCH (21:31)
[2020-04-27] MEDS: RINGERS SOLUTION,LACTATED 1,000 ML IV PRN ×2 (00:10→12:14)
[2020-04-27] MEDS: INSULIN REG, HUMAN 100 UNIT/ML 3 ML VIAL (PYX) SUBCUT SCH ×4 (00:44→17:14)
[2020-04-27 04:34] LABS: ABSOLUTE BASOPHILS # (AUTO) 0.1 10^3/uL (0.0-0.2); ABSOLUTE EOSINOPHILS # (AUTO) 0.3 10^3/uL (0.0-0.6); ABSOLUTE LYMPHOCYTES (AUTO) 1.4 10^3/uL (0.5-4.7); ABSOLUTE NEUT (AUTO) 9.3 10^3/uL (1.7-8.2); EOSINOPHILS % (AUTO) 2.7 % (0-6); HEMATOCRIT 24.8 % (37.9-51.0); HEMOGLOBIN 8.3 g/dL (13.5-17.0); LYMPHOCYTES % (AUTO) 11.6 % (13-45); MEAN CORPUSCULAR HEMOGLOBIN 27.6 pg (27.0-33.4); MEAN CORPUSCULAR HGB CONC 33.5 g/dL (32.0-36.0); MEAN CORPUSCULAR VOLUME 83 fl (80-97); MONOCYTES % (AUTO) 8.3 % (3-13); PLATELET COUNT 576 10^3/uL (150-450); RED BLOOD COUNT 3.01 10^6/uL (4.35-5.55); RED CELL DISTRIBUTION WIDTH 15.7 % (11.5-14.0); SEGMENTED NEUTROPHILS % (AUTO) 76.4 % (42-78); TOTAL CELLS COUNTED % (AUTO) 100 %; WHITE BLOOD COUNT 12.1 10^3/uL (4.0-10.5)
[2020-04-27 04:51] LABS: ANION GAP 8 (5-19); BLOOD UREA NITROGEN 39 mg/dL (7-20); CALCIUM 8.2 mg/dL (8.4-10.2); CARBON DIOXIDE 23 mmol/L (22-30); CHLORIDE 117 mmol/L (98-107); GLUCOSE 110 mg/dL (75-110); POTASSIUM 3.6 mmol/L (3.6-5.0)
[2020-04-27] MEDS: MEROPENEM 500 MG in NORMAL SALINE 50 ML IV SCH ×2 (06:16→17:09)
[2020-04-27] MEDS: HYDRALAZINE HCL 25 MG TABLET PEG SCH ×3 (06:17→21:41)
[2020-04-27] MEDS: AMLODIPINE BESYLATE 5 MG TABLET PEG SCH ×2 (06:17→17:09)
[2020-04-27] MEDS: HEPARIN SOD (PORCINE) 5,000 UNIT/ML 1 ML VIAL SUBCUT SCH ×3 (06:17→21:41)
[2020-04-27] MEDS ORDERED: CARBIDOPA/LEVODOPA 10-100 MG TABLET PEG SCH (08:00)
[2020-04-27] MEDS ORDERED: METHYLPHENIDATE HCL 5 MG TABLET PEG SCH (08:00)
[2020-04-27] MEDS: METOCLOPRAMIDE HCL ORAL SOLN 10 MG/10 ML UDCUP GT SCH ×4 (08:48→21:40)
[2020-04-27] MEDS: SENNOSIDES/DOCUSATE 8.6-50 MG 1 EACH TABLET NG SCH ×2 (10:35→21:42)
[2020-04-27] MEDS: PANTOPRAZOLE SODIUM 40 MG VIAL IV SCH (10:35)
[2020-04-27] MEDS: ASPIRIN 81 MG TABLET, CHEWABLE PEG SCH (10:36)
[2020-04-27] MEDS: METOPROLOL TARTRATE 25 MG TABLET PEG SCH ×2 (10:36→21:41)
[2020-04-27] MEDS: SODIUM HYPOCHLORITE 0.25% SOLN 473 ML BOTTLE TP PRN (13:37)
--- NOTE | 2020-04-27 14:34 | PDOC PROGRESS REPORT ---
Subjective Progress Note for:: 04/27/20 Subjective:: Patient was seen laying in bed. His still on the vent through his trach. He is currently not on any sedation. The has apparently agreed to an AKA of the right leg. Patient's nutrition has just about stopped. Urine output continues to be good. Reason For Visit: RIGHT FOOT GAS GANGRENE,DIABETES,CKD Physical Exam Vital Signs: Temp Pulse Resp BP Pulse Ox 99.5 F 84 16 128/64 H 94 04/27/20 12:00 04/27/20 12:00 04/27/20 12:00 04/27/20 12:00 04/27/20 12:00 Intake & Output 04/26/20 04/27/20 04/28/20 06:59 06:59 06:59 Intake Total 2700 1050 Output Total 2785 1730 570 Balance -85 -680 -570 Weight 80.6 kg 84.6 kg General appearance: PRESENT: no acute distress, well-developed, well-nourished, other - sedated and intubated Mouth exam: PRESENT: moist, neck supple Neck exam: PRESENT: tracheal deviation. ABSENT: JVD Respiratory exam: PRESENT: clear to auscultation king, other - -on a vent. ABSENT: crackles, rales, rhonchi, wheezes Cardiovascular exam: PRESENT: +S1, +S2 GI/Abdominal exam: PRESENT: distended, hypoactive bowel sounds, rigid. ABSENT: firm Extremities exam: PRESENT: pedal edema, +2 edema Musculoskeletal exam: PRESENT: deformity - -aka on the left leg. ABSENT: normal inspection Neurological exam: PRESENT: other - -not responding to stimuli. ABSENT: alert, awake Skin exam: PRESENT: dry, intact, warm Results Laboratory Results: 04/27/20 04:22 04/27/20 04:22 04/27/20 04/27/20 04:22 04:22 WBC 12.1 H RBC 3.01 L Hgb 8.3 L Hct 24.8 L MCV 83 MCH 27.6 MCHC 33.5 RDW 15.7 H Plt Count 576 H Seg Neutrophils % 76.4 Sodium 147.5 H Potassium 3.6 Chloride 117 H Carbon Dioxide 23 Anion Gap 8 BUN 39 H Creatinine 3.91 H Est GFR ( Amer) 19 L Glucose 110 Calcium 8.2 L 04/24/20 17:10 Foot - Heel Gram Stain - Final 04/24/20 17:10 Foot - Heel Wound Culture - Final Pseudomonas Aeruginosa Yeast, Not Isamar Albicans 04/11/20 04/11/20 04/11/20 01:02 01:02 15:35 Creatine Kinase 743 H CK-MB (CK-2) 2.41 Troponin I 0.077 0.261 04/13/20 04/13/20 04/16/20 04:43 04:43 14:30 Creatine Kinase 540 H 213 H CK-MB (CK-2) Troponin I 0.126 Impressions: Foot X-Ray 04/09/20 20:34 IMPRESSION: Findings are consistent with osteomyelitis involving the lateral aspect of the fifth metatarsal base. Associated underlying pathologic fracture deformity. Superimposed foci of soft tissue gas at this site could indicate infection with a gas-forming organism. copyright 2010 [employer]- All Rights Reserved Chest CT 04/11/20 00:00 IMPRESSION: MILD CARDIOMEGALY. BILATERAL PLEURAL EFFUSIONS WITH FAINT ATELECTASIS. NO LOBAR INFILTRATES. Head CT 04/15/20 05:00 IMPRESSION: NORMAL BRAIN CT WITHOUT CONTRAST. SINUS DISEASE. EVIDENCE OF ACUTE STROKE: NO. Venous Doppler Study 04/20/20 00:00 IMPRESSION: NO EVIDENCE DVT OR SVT IN EITHER LEG. KUB X-Ray 04/23/20 00:00 IMPRESSION: NO RADIOGRAPHIC EVIDENCE FOR ACUTE ABDOMINAL DISEASE. Chest X-Ray 04/24/20 05:00 IMPRESSION: STABLE APPEARANCE OF THE CHEST. SUPPORT DEVICES UNCHANGED. Abdomen/Pelvis CT 04/25/20 00:00 IMPRESSION: Postprocedural changes from recent G-tube placement with small amounts of peritoneal free air. Contrast is present in the stomach and small bowel. Moderate bilateral pleural effusions and basilar atelectasis, increased compared with the prior study. Assessment & Plan - Diagnosis (1) Acute on chronic renal failure Qualifiers: Acute renal failure type: with acute tubular necrosis Chronic kidney diseas e stage: stage 4 (severe) Qualified Code(s): N17.0 - Acute kidney failure with tubular necrosis; N18.4 - Chronic kidney disease, stage 4 (severe) Is this a current diagnosis for this admission?: Yes Plan: nonoliguric, due to ATN for multiple reasons. See consult note for reasons. Due to the patient's slow intake of nutrition, will look to increase LR to 125mL/h. Patient continues to have good urine output. He also continues to have his creatinine and BUN decrease. Will reassess his fluid status tomorrow. (2) Acute respiratory failure with hypoxia and hypercapnia Is this a current diagnosis for this admission?: Yes Plan: on a vent through a trach currently (3) Brain anoxic injury Is this a current diagnosis for this admission?: Yes Plan: looks to have a poor prognosis. (4) Chronic kidney disease Qualifiers: Chronic kidney disease stage: stage 4 (severe) Qualified Code(s): N18.4 - Chronic kidney disease, stage 4 (severe) Is this a current diagnosis for this admission?: Yes Plan: looks to have had a possible baseline around 1.6. 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
[2020-04-27] MEDS: CIPROFLOXACIN HCL 500 MG TABLET PEG SCH (17:33)
[2020-04-27] MEDS ORDERED: CIPROFLOXACIN HCL 500 MG TABLET PEG SCH (18:00)
--- NOTE | 2020-04-27 18:20 | PDOC PROGRESS REPORT ---
Subjective Progress Note for:: 04/27/20 Subjective:: 59-year-old male with a severe diabetic foot infection, status post CODE BLUE, now with an anoxic brain injury. The patient is still on the ventilator and minimally responsive. His foot remains dressed at this time. 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 He has a history of severe peripheral vascular disease. No review of systems is obtainable secondary to his mental status. Reason For Visit: RIGHT FOOT GAS GANGRENE,DIABETES,CKD Physical Exam Vital Signs: Temp Pulse Resp BP Pulse Ox 99.3 F 124 H 18 116/68 95 04/27/20 16:00 04/27/20 16:00 04/27/20 18:05 04/27/20 18:05 04/27/20 18:05 Intake & Output 04/26/20 04/27/20 04/28/20 06:59 06:59 06:59 Intake Total 2700 1100 135 Output Total 2785 1730 780 Balance -85 -630 -645 Weight 80.6 kg 84.6 kg General appearance: PRESENT: no acute distress. ABSENT: cooperative Head exam: PRESENT: atraumatic, normocephalic Eye exam: ABSENT: scleral icterus Mouth exam: PRESENT: moist, neck supple Neck exam: ABSENT: meningismus, tenderness, thyromegaly, tracheal deviation Respiratory exam: PRESENT: other - Tracheostomy in place. Currently requiring ventilatory support Cardiovascular exam: PRESENT: tachycardia GI/Abdominal exam: PRESENT: soft. ABSENT: distended, guarding, tenderness Rectal exam: PRESENT: deferred Extremities exam: PRESENT: other - Multiple incisions on the remaining foot. [place] drains remain in place. Neurological exam: ABSENT: alert, awake, oriented to person, oriented to place, oriented to time, oriented to situation Psychiatric exam: ABSENT: agitated Focused psych exam: ABSENT: restlessness Skin exam: ABSENT: jaundice Results Laboratory Results: 04/27/20 04:22 04/27/20 04:22 04/27/20 04/27/20 04:22 04:22 WBC 12.1 H RBC 3.01 L Hgb 8.3 L Hct 24.8 L MCV 83 MCH 27.6 MCHC 33.5 RDW 15.7 H Plt Count 576 H Seg Neutrophils % 76.4 Sodium 147.5 H Potassium 3.6 Chloride 117 H Carbon Dioxide 23 Anion Gap 8 BUN 39 H Creatinine 3.91 H Est GFR ( Amer) 19 L Glucose 110 Calcium 8.2 L 04/24/20 17:10 Foot - Heel Gram Stain - Final 04/24/20 17:10 Foot - Heel Wound Culture - Final Pseudomonas Aeruginosa Yeast, Not Isamar Albicans 04/11/20 04/11/20 04/11/20 01:02 01:02 15:35 Creatine Kinase 743 H CK-MB (CK-2) 2.41 Troponin I 0.077 0.261 04/13/20 04/13/20 04/16/20 04:43 04:43 14:30 Creatine Kinase 540 H 213 H CK-MB (CK-2) Troponin I 0.126 Impressions: Foot X-Ray 04/09/20 20:34 IMPRESSION: Findings are consistent with osteomyelitis involving the lateral aspect of the fifth metatarsal base. Associated underlying pathologic fracture deformity. Superimposed foci of soft tissue gas at this site could indicate infection with a gas-forming organism. copyright 2010 [employer]- All Rights Reserved Chest CT 04/11/20 00:00 IMPRESSION: MILD CARDIOMEGALY. BILATERAL PLEURAL EFFUSIONS WITH FAINT ATELECTASIS. NO LOBAR INFILTRATES. Head CT 04/15/20 05:00 IMPRESSION: NORMAL BRAIN CT WITHOUT CONTRAST. SINUS DISEASE. EVIDENCE OF ACUTE STROKE: NO. Venous Doppler Study 04/20/20 00:00 IMPRESSION: NO EVIDENCE DVT OR SVT IN EITHER LEG. KUB X-Ray 04/23/20 00:00 IMPRESSION: NO RADIOGRAPHIC EVIDENCE FOR ACUTE ABDOMINAL DISEASE. Chest X-Ray 04/24/20 05:00 IMPRESSION: STABLE APPEARANCE OF THE CHEST. SUPPORT DEVICES UNCHANGED. Abdomen/Pelvis CT 04/25/20 00:00 IMPRESSION: Postprocedural changes from recent G-tube placement with small amounts of peritoneal free air. Contrast is present in the stomach and small bowel. Moderate bilateral pleural effusions and basilar atelectasis, increased compared with the prior study. Assessment & Plan - Diagnosis (1) Diabetic infection of right foot Is this a current diagnosis for this admission?: Yes (2) Osteomyelitis Qualifiers: Osteomyelitis type: unspecified type Osteomyelitis location: foot Laterality: right Qualified Code(s): M86.9 - Osteomyelitis, unspecified Is this a current diagnosis for this admission?: Yes - Plan Summary Plan Summary: This is a 59-year-old male with a severe diabetic foot infection and osteomyelitis of the foot. 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 He has a history of significant peripheral vascular disease. The most appropriate neck step for this patient is above-knee amputation due to his current mental status, as well as the unlikely event of him being able to ambulate ever again. I have discussed this at length with the patient's family. They wish to further discuss the possibility of above-knee am putation. They will come to a decision at some point in the future regarding amputation level. I have again stressed with him that above-knee amputation is the most appropriate next step. Surgery will follow.
[2020-04-27] MEDS: INSULIN GLARGINE,HUM.REC.ANLOG 1,000 UNIT/10 ML VIAL SUBCUT SCH (21:50)
[2020-04-28] MEDS: INSULIN REG, HUMAN 100 UNIT/ML 3 ML VIAL (PYX) SUBCUT SCH ×5 (00:29→23:36)
[2020-04-28] MEDS: AMLODIPINE BESYLATE 5 MG TABLET PEG SCH ×2 (06:43→18:06)
[2020-04-28] MEDS: HYDRALAZINE HCL 25 MG TABLET PEG SCH ×3 (06:43→21:16)
[2020-04-28] MEDS: HEPARIN SOD (PORCINE) 5,000 UNIT/ML 1 ML VIAL SUBCUT SCH ×3 (06:43→21:16)
[2020-04-28] MEDS: ASPIRIN 81 MG TABLET, CHEWABLE PEG SCH (09:36)
[2020-04-28] MEDS: METOPROLOL TARTRATE 25 MG TABLET PEG SCH ×2 (09:36→21:16)
[2020-04-28] MEDS: METOCLOPRAMIDE HCL ORAL SOLN 10 MG/10 ML UDCUP GT SCH ×4 (09:36→21:16)
[2020-04-28] MEDS: PANTOPRAZOLE SODIUM 40 MG VIAL IV SCH (09:37)
[2020-04-28] MEDS: SENNOSIDES/DOCUSATE 8.6-50 MG 1 EACH TABLET NG SCH ×2 (09:38→21:17)
[2020-04-28] MEDS: MEROPENEM 500 MG in NORMAL SALINE 50 ML IV SCH ×2 (09:40→21:15)
--- NOTE | 2020-04-28 10:27 | PDOC CRITICAL CARE PROG REPORT ---
General Date:: 04/28/20 ICU Day:: 17 Ventilator Day:: 17 Hospital Day:: 18 Resuscitation Status: Full Code Medical Power of Healthcare Administration Internship: [place] Events in the past 12 to 24 Hours:: Did not tolerate trach collar. Doing better on PSV. Review of systems relevant to events:: Neurological, CV, respiratory Reason for ICU Addmission:: Post respiratorycardiac arrest, Intubated - Medications: Medications reviewed and adjusted accordingly: Yes Vasopressors:: None Sedation:: None Physical Exam Vital Signs: Temp Pulse Resp BP Pulse Ox 99.1 F 124 H 24 H 151/62 H 100 04/28/20 05:37 04/27/20 20:00 04/28/20 08:35 04/28/20 08:35 04/28/20 08:35 Intake & Output 04/27/20 04/28/20 04/29/20 06:59 06:59 06:59 Intake Total 1100 135 Output Total 1730 1435 50 Balance -630 -1300 -50 Weight 84.6 kg 84.9 kg Weight/Height Weight 84.9 kg Height 6 ft General appearance: PRESENT: no acute distress, thin Head exam: PRESENT: atraumatic, normocephalic Eye exam: PRESENT: conjunctiva pink, EOMI, PERRLA. ABSENT: scleral icterus Ear exam: PRESENT: normal external ear exam Mouth exam: PRESENT: moist, tongue midline Neck exam: PRESENT: tracheostomy Respiratory exam: PRESENT: clear to auscultation king. ABSENT: rales, rhonchi, wheezes Cardiovascular exam: PRESENT: RRR. ABSENT: diastolic murmur, rubs, systolic murmur GI/Abdominal exam: PRESENT: normal bowel sounds, soft, other - PEG site clean.. ABSENT: distended, guarding, mass, organolmegaly, rebound, tenderness Rectal exam: PRESENT: deferred Gentrourinary exam: PRESENT: indwelling catheter Extremities exam: PRESENT: other - L AKA, not BKA. R foot dressed Neurological exam: PRESENT: other - Occassional opens eyes spontaneously. GCS unchanged Skin exam: PRESENT: dry, intact, warm. ABSENT: cyanosis, rash Tubes/Lines: PRESENT: Peg Tube, Other - Tracheotomy Laboratory/Radiographs Laboratory Results: 04/27/20 04:22 04/27/20 04:22 04/24/20 17:10 Foot - Heel Gram Stain - Final 04/24/20 17:10 Foot - Heel Wound Culture - Final Pseudomonas Aeruginosa Yeast, Not Isamar Albicans 04/11/20 04/11/20 04/11/20 01:02 01:02 15:35 Creatine Kinase 743 H CK-MB (CK-2) 2.41 Troponin I 0.077 0.261 04/13/20 04/13/20 04/16/20 04:43 04:43 14:30 Creatine Kinase 540 H 213 H CK-MB (CK-2) Troponin I 0.126 Impressions: Foot X-Ray 04/09/20 20:34 IMPRESSION: Findings are consistent with osteomyelitis involving the lateral aspect of the fifth metatarsal base. Associated underlying pathologic fracture deformity. Superimposed foci of soft tissue gas at this site could indicate infection with a gas-forming organism. copyright 2010 [employer]- All Rights Reserved Chest CT 04/11/20 00:00 IMPRESSION: MILD CARDIOMEGALY. BILATERAL PLEURAL EFFUSIONS WITH FAINT ATELECTASIS. NO LOBAR INFILTRATES. Head CT 04/15/20 05:00 IMPRESSION: NORMAL BRAIN CT WITHOUT CONTRAST. SINUS DISEASE. EVIDENCE OF ACUTE STROKE: NO. Venous Doppler Study 04/20/20 00:00 IMPRESSION: NO EVIDENCE DVT OR SVT IN EITHER LEG. KUB X-Ray 04/23/20 00:00 IMPRESSION: NO RADIOGRAPHIC EVIDENCE FOR ACUTE ABDOMINAL DISEASE. Chest X-Ray 04/24/20 05:00 IMPRESSION: STABLE APPEARANCE OF THE CHEST. SUPPORT DEVICES UNCHANGED. Abdomen/Pelvis CT 04/25/20 00:00 IMPRESSION: Postprocedural changes from recent G-tube placement with small amounts of peritoneal free air. Contrast is present in the stomach and small bowel. Moderate bilateral pleural effusions and basilar atelectasis, increased compared with the prior study. All labs, radiographs, diagnostic studies and EKGs were personally reviewed: Yes In addition, reports of radiographic and diagnostic studies were read: Yes Assessment and Plan - Diagnosis (1) Brain anoxic injury Is this a current diagnosis for this admission?: Yes Plan: Unchanged. Will likely be in a persistant vegatative state. [facility]. (2) Cardiopulmonary arrest with successful resuscitation Is this a current diagnosis for this admission?: Yes Plan: The ultimate cause of his arrest. (3) Chronic kidney disease Qualifiers: Chronic kidney disease stage: stage 4 (severe) Qualified Code(s): N18.4 - Chronic kidney disease, stage 4 (severe) Is this a current diagnosis for this admission?: Yes Plan: Making urine but not improving his GFR. May progress to HD. (4) Diabetes Qualifiers: Diabetes mellitus type: type 1 Diabetes mellitus complication status: with circulatory complication Diabetes mellitus complication detail: with augustine pheral angiopathy with gangrene Qualified Code(s): E10.52 - Type 1 diabetes mellitus with diabetic peripheral angiopathy with gangrene Is this a current diagnosis for this admission?: Yes Plan: Cntrolled. (5) Diabetic infection of right foot Is this a current diagnosis for this admission?: Yes Plan: Dr. Ko gave the a second opinion regarding amputation, essentially the same as Dr. Arnold. Family weighing options. (6) Ileus Is this a current diagnosis for this admission?: Yes Plan: Resolved, tolerating TF. Has diarrhea. Will check Cdif. Plan Summary: Progonsis not good. Likely will be in vegatative state and needing dialysis. Will be a placement issue. Critical Time Critical Time (minutes): 35 Level of Care: ICU Anticipated discharge: SNF Within: Other -: 1. The care of a critical patient is a dynamic process. This note is a manufacturers service representative synopsis but static in nature. The timeframe for treatments given in order is not necessarily the actual time these treatments may have been done. 2. This patient requires critical care secondary to ongoing requirements for therapy not offered or safe outside the critical care environment. Transfer to a lower level of care will result in altered life or limb morbidity and mortality. 3. Multidisciplinary rounds completed. 4. ABCDE bundle addressed.
[2020-04-28 11:12] LABS: ANION GAP 8 (5-19); BLOOD UREA NITROGEN 34 mg/dL (7-20); CALCIUM 8.4 mg/dL (8.4-10.2); CARBON DIOXIDE 22 mmol/L (22-30); CHLORIDE 117 mmol/L (98-107); GLUCOSE 160 mg/dL (75-110); POTASSIUM 3.4 mmol/L (3.6-5.0)
--- NOTE | 2020-04-28 11:26 | PDOC PROGRESS REPORT ---
Subjective Progress Note for:: 04/28/20 Subjective:: 59-year-old male with a severe diabetic foot infection, status post CODE BLUE, now with an anoxic brain injury. The patient is still on the ventilator and minimally responsive. His foot remains dressed at this time. 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 He has a history of severe peripheral vascular disease. No review of systems is obtainable secondary to his mental status. Reason For Visit: RIGHT FOOT GAS GANGRENE,DIABETES,CKD Physical Exam Vital Signs: Temp Pulse Resp BP Pulse Ox 99.1 F 90 19 132/60 H 100 04/28/20 05:37 04/28/20 08:00 04/28/20 10:45 04/28/20 10:45 04/28/20 10:45 Intake & Output 04/27/20 04/28/20 04/29/20 06:59 06:59 06:59 Intake Total 1100 135 Output Total 1730 1435 200 Balance -630 -1300 -200 Weight 84.6 kg 84.9 kg Exam: General appearance: PRESENT: no acute distress. ABSENT: cooperative Head exam: PRESENT: atraumatic, normocephalic Eye exam: ABSENT: scleral icterus Mouth exam: PRESENT: moist, neck supple Neck exam: ABSENT: meningismus, tenderness, thyromegaly, tracheal deviation Respiratory exam: PRESENT: other - Tracheostomy in place. Currently requiring ventilatory support Cardiovascular exam: PRESENT: tachycardia GI/Abdominal exam: PRESENT: soft. ABSENT: distended, guarding, tenderness Rectal exam: PRESENT: deferred Extremities exam: PRESENT: other - Multiple incisions on the remaining foot. [place] drains remain in place. Neurological exam: ABSENT: alert, awake, oriented to person, oriented to place, oriented to time, oriented to situation Psychiatric exam: ABSENT: agitated Focused psych exam: ABSENT: restlessness Skin exam: ABSENT: jaundice Results Laboratory Results: 04/27/20 04:22 04/28/20 10:39 04/28/20 10:39 Sodium 147.3 H Potassium 3.4 L Chloride 117 H Carbon Dioxide 22 Anion Gap 8 BUN 34 H Creatinine 3.63 H Est GFR ( Amer) 21 L Glucose 160 H Calcium 8.4 04/24/20 17:10 Foot - Heel Gram Stain - Final 04/24/20 17:10 Foot - Heel Wound Culture - Final Pseudomonas Aeruginosa Yeast, Not Isamar Albicans 04/11/20 04/11/20 04/11/20 01:02 01:02 15:35 Creatine Kinase 743 H CK-MB (CK-2) 2.41 Troponin I 0.077 0.261 04/13/20 04/13/20 04/16/20 04:43 04:43 14:30 Creatine Kinase 540 H 213 H CK-MB (CK-2) Troponin I 0.126 Impressions: Foot X-Ray 04/09/20 20:34 IMPRESSION: Findings are consistent with osteomyelitis involving the lateral aspect of the fifth metatarsal base. Associated underlying pathologic fracture deformity. Superimposed foci of soft tissue gas at this site could indicate infection with a gas-forming organism. copyright 2011 [employer]- All Rights Reserved Chest CT 04/11/20 00:00 IMPRESSION: MILD CARDIOMEGALY. BILATERAL PLEURAL EFFUSIONS WITH FAINT ATELE CTASIS. NO LOBAR INFILTRATES. Head CT 04/15/20 05:00 IMPRESSION: NORMAL BRAIN CT WITHOUT CONTRAST. SINUS DISEASE. EVIDENCE OF ACUTE STROKE: NO. Venous Doppler Study 04/20/20 00:00 IMPRESSION: NO EVIDENCE DVT OR SVT IN EITHER LEG. KUB X-Ray 04/23/20 00:00 IMPRESSION: NO RADIOGRAPHIC EVIDENCE FOR ACUTE ABDOMINAL DISEASE. Chest X-Ray 04/24/20 05:00 IMPRESSION: STABLE APPEARANCE OF THE CHEST. SUPPORT DEVICES UNCHANGED. Abdomen/Pelvis CT 04/25/20 00:00 IMPRESSION: Postprocedural changes from recent G-tube placement with small amounts of peritoneal free air. Contrast is present in the stomach and small bowel. Moderate bilateral pleural effusions and basilar atelectasis, increased compared with the prior study. Assessment & Plan - Diagnosis (1) Diabetic infection of right foot Is this a current diagnosis for this admission?: Yes (2) Osteomyelitis Qualifiers: Osteomyelitis type: unspecified type Osteomyelitis location: foot Laterality: right Qualified Code(s): M86.9 - Osteomyelitis, unspecified Is this a current diagnosis for this admission?: Yes - Plan Summary Plan Summary: This is a 59-year-old male with a severe diabetic foot infection and osteom yelitis. 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 He has a history of significant peripheral vascular disease. The most appropriate neck step for this patient is above-knee amputation due to his current mental status, as well as the unlikely event of him being able to ambulate ever again. I have discussed this at length with the patient's family. They wish to further dis cuss the possibility of above-knee amputation. They will come to a decision at some point in the future regarding amputation level. I am awaiting their decision before any further surgical planning. Surgery will follow.
[2020-04-28] MEDS ORDERED: POTASSIUM CHLORIDE 10 MEQ TABLET.ER PO ONE (13:00)
--- NOTE | 2020-04-28 14:30 | PDOC PROGRESS REPORT ---
Subjective Progress Note for:: 04/28/20 Subjective:: Patient was seen laying in the bed. Similar state as yesterday. His eyes did track to me when I said his name. Urine output continues to be good. At this time the family is still debating whether they want to do a AKA of his right leg. Reason For Visit: RIGHT FOOT GAS GANGRENE,DIABETES,CKD Physical Exam Vital Signs: Temp Pulse Resp BP Pulse Ox 99.1 F 90 18 136/57 H 100 04/28/20 05:37 04/28/20 08:00 04/28/20 12:01 04/28/20 12:00 04/28/20 12:58 Intake & Output 04/27/20 04/28/20 04/29/20 06:59 06:59 06:59 Intake Total 1100 135 Output Total 1730 1435 250 Balance -630 -1300 -250 Weight 84.6 kg 84.9 kg General appearance: PRESENT: no acute distress, well-developed, well-nourished, other - -on a vent through his trach, only tracking with his eyes neurogically. Mouth exam: PRESENT: moist, neck supple Neck exam: ABSENT: JVD, tracheal deviation Respiratory exam: PRESENT: clear to auscultation king. ABSENT: crackles, rales, stridor, wheezes Cardiovascular exam: PRESENT: +S1, +S2 GI/Abdominal exam: PRESENT: distended, soft. ABSENT: firm Extremities exam: PRESENT: +2 edema. ABSENT: +1 edema Musculoskeletal exam: PRESENT: deformity - -left leg aka. ABSENT: normal inspection Neurological exam: PRESENT: other - -on a vent through his trach. No following commands but does track me with his eyes today.. ABSENT: alert, awake Skin exam: PRESENT: dry, intact, warm. ABSENT: cyanosis Results Laboratory Results: 04/27/20 04:22 04/28/20 10:39 04/28/20 10:39 Sodium 147.3 H Potassium 3.4 L Chloride 117 H Carbon Dioxide 22 Anion Gap 8 BUN 34 H Creatinine 3.63 H Est GFR ( Amer) 21 L Glucose 160 H Calcium 8.4 04/11/20 04/11/20 04/11/20 01:02 01:02 15:35 Creatine Kinase 743 H CK-MB (CK-2) 2.41 Troponin I 0.077 0.261 04/13/20 04/13/20 04/16/20 04:43 04:43 14:30 Creatine Kinase 540 H 213 H CK-MB (CK-2) Troponin I 0.126 Impressions: Foot X-Ray 04/09/20 20:34 IMPRESSION: Findings are consistent with osteomyelitis involving the lateral aspect of the fifth metatarsal base. Associated underlying pathologic fracture deformity. Superimposed foci of soft tissue gas at this site could indicate infection with a gas-forming organism. copyright 2010 [facility]- All Rights Reserved Chest CT 04/11/20 00:00 IMPRESSION: MILD CARDIOMEGALY. BILATERAL PLEURAL EFFUSIONS WITH FAINT ATELECTASIS. NO LOBAR INFILTRATES. Head CT 04/15/20 05:00 IMPRESSION: NORMAL BRAIN CT WITHOUT CONTRAST. SINUS DISEASE. EVIDENCE OF ACUTE STROKE: NO. Venous Doppler Study 04/20/20 00:00 IMPRESSION: NO EVIDENCE DVT OR SVT IN EITHER LEG. KUB X-Ray 04/23/20 00:00 IMPRESSION: NO RADIOGRAPHIC EVIDENCE FOR ACUTE ABDOMINAL DISEASE. Chest X-Ray 04/24/20 05:00 IMPRESSION: STABLE APPEARANCE OF THE CHEST. SUPPORT DEVICES UNCHANGED. Abdomen/Pelvis CT 04/25/20 00:00 IMPRESSION: Postprocedural changes from recent G-tube placement with small amounts of peritoneal free air. Contrast is present in the stomach and small bowel. Moderate bilateral pleural effusions and basilar atelectasis, increased compared with the prior study. Assessment & Plan - Diagnosis (1) Acute on chronic renal failure Qualifiers: Acute renal failure type: with acute tubular necrosis Chronic kidney disease stage: stage 4 (severe) Qualified Code(s): N17.0 - Acute kidney failure with tubular necrosis; N18.4 - Chronic kidney disease, stage 4 (severe) Is this a current diagnosis for this admission?: Yes Plan: nonoliguric, due to ATN for multiple reasons. See consult note for reasons. Due to the patient's slow intake of nutrition, will look to restart LR to 125mL/h. Patient continues to have good urine output. He also continues to have his creatinine and BUN decrease. Will reassess his fluid status tomorrow. (2) Acute respiratory failure with hypoxia and hypercapnia Is this a current diagnosis for this admission?: Yes Plan: on a vent through a trach currently (3) Brain anoxic injury Is this a current diagnosis for this admission?: Yes Plan: looks to have a poor prognosis. (4) Chronic kidney disease Qualifiers: Chronic kidney disease stage: stage 4 (severe) Qualified Code(s): N18.4 - Chronic kidney disease, stage 4 (severe) Is this a current diagnosis for this admission?: Yes Plan: looks to have had a possible baseline around 1.6. (5) Diabetes Qualifiers: Diabetes mellitus type: type 1 Diabetes mellitus complication status: with circulatory complication Diabetes mellitus complication detail: with peripheral angiopathy with gangrene Qualified Code(s): E10.52 - Type 1 diabetes mellitus with diabetic peripheral angiopathy with gangrene Is this a current diagnosis for this admission?: Yes (6) Hypertension Is this a current diagnosis for this admission?: Yes Plan: controlled (7) Hypokalemia Is this a current diagnosis for this admission?: Yes Plan: he received some k-riders today. Having the LR restarted also. (8) Metabolic acidosis Is this a current diagnosis for this admission?: Yes Plan: resolved (9) Osteomyelitis of ankle or foot, right, acute Is this a current diagnosis for this admission?: Yes Plan: per gen surg
[2020-04-28 14:36] LABS: C DIFFICILE GDH NEGATIVE (NEGATIVE)
[2020-04-28] MEDS: RINGERS SOLUTION,LACTATED 1,000 ML IV PRN (18:05)
[2020-04-28] MEDS: CIPROFLOXACIN HCL 500 MG TABLET PEG SCH (18:06)
[2020-04-28] MEDS: INSULIN GLARGINE,HUM.REC.ANLOG 1,000 UNIT/10 ML VIAL SUBCUT SCH (21:15)
[2020-04-29] MEDS: RINGERS SOLUTION,LACTATED 1,000 ML IV PRN ×4 (02:58→21:49)
[2020-04-29 04:39] LABS: ANION GAP 7 (5-19); BLOOD UREA NITROGEN 31 mg/dL (7-20); CALCIUM 8.4 mg/dL (8.4-10.2); CARBON DIOXIDE 24 mmol/L (22-30); CHLORIDE 118 mmol/L (98-107); GLUCOSE 142 mg/dL (75-110); POTASSIUM 3.4 mmol/L (3.6-5.0)
[2020-04-29] MEDS: AMLODIPINE BESYLATE 5 MG TABLET PEG SCH ×2 (05:22→17:18)
[2020-04-29] MEDS: HYDRALAZINE HCL 25 MG TABLET PEG SCH ×3 (05:22→21:52)
[2020-04-29] MEDS: HEPARIN SOD (PORCINE) 5,000 UNIT/ML 1 ML VIAL SUBCUT SCH ×3 (05:22→21:49)
[2020-04-29] MEDS: INSULIN REG, HUMAN 100 UNIT/ML 3 ML VIAL (PYX) SUBCUT SCH ×4 (05:23→23:09)
[2020-04-29] MEDS: METOCLOPRAMIDE HCL ORAL SOLN 10 MG/10 ML UDCUP GT SCH ×4 (08:30→22:00)
--- NOTE | 2020-04-29 10:23 | PDOC PROGRESS REPORT ---
Subjective Reason For Visit: RIGHT FOOT GAS GANGRENE,DIABETES,CKD Follow-up from the general surgery service. I spoke with agronomy technician, as well a s nursing this morning. Patient's neurologic has not improved and may have deteriorated. He has severe edema, has been evaluated by the nephrology service. He continues to have a low-grade septic picture. Multiple discussions have taken place between multiple providers including nurses, agronomy technician, and surgeon regarding the need for patient undergo a right leg amputation, preferably a single-stage right [id number] amputation. Unfortunately the patient's , in conjunction with multiple family members friends input, has not consented to the procedure. There are likely multiple reasons for this. Physical Exam Vital Signs: Temp Pulse Resp BP Pulse Ox 100.6 F H 97 42 H 139/72 H 100 04/29/20 08:00 04/29/20 10:00 04/29/20 10:00 04/29/20 10:00 04/29/20 10:00 Intake & Output 04/28/20 04/29/20 04/30/20 06:59 06:59 06:59 Intake Total 1135 1834 Output Total 1435 1325 65 Balance -300 509 -65 Weight 84.9 kg 82.4 kg Results Laboratory Results: 04/27/20 04:22 04/29/20 04:08 04/28/20 04/29/20 10:39 04:08 Sodium 147.3 H 149.2 H Potassium 3.4 L 3.4 L Chloride 117 H 118 H Carbon Dioxide 22 24 Anion Gap 8 7 BUN 34 H 31 H Creatinine 3.63 H 3.42 H Est GFR ( Amer) 21 L 23 L Glucose 160 H 142 H Calcium 8.4 8.4 04/11/20 04/11/20 04/11/20 01:02 01:02 15:35 Creatine Kinase 743 H CK-MB (CK-2) 2.41 Troponin I 0.077 0.261 04/13/20 04/13/20 04/16/20 04:43 04:43 14:30 Creatine Kinase 540 H 213 H CK-MB (CK-2) Troponin I 0.126 Impressions: Foot X-Ray 04/09/20 20:34 IMPRESSION: Findings are consistent with osteomyelitis involving the lateral aspect of the fifth metatarsal base. Associated underlying pathologic fracture deformity. Superimposed foci of soft tissue gas at this site could indicate infection with a gas-forming organism. copyright 2010 [employer] All Rights Reserved Chest CT 04/11/20 00:00 IMPRESSION: MILD CARDIOMEGALY. BILATERAL PLEURAL EFFUSIONS WITH FAINT ATELECTASIS. NO LOBAR INFILTRATES. Head CT 04/15/20 05:00 IMPRESSION: NORMAL BRAIN CT WITHOUT CONTRAST. SINUS DISEASE. EVIDENCE OF ACUTE STROKE: NO. Venous Doppler Study 04/20/20 00:00 IMPRESSION: NO EVIDENCE DVT OR SVT IN EITHER LEG. KUB X-Ray 04/23/20 00:00 IMPRESSION: NO RADIOGRAPHIC EVIDENCE FOR ACUTE ABDOMINAL DISEASE. Chest X-Ray 04/24/20 05:00 IMPRESSION: STABLE APPEARANCE OF THE CHEST. SUPPORT DEVICES UNCHANGED. Abdomen/Pelvis CT 04/25/20 00:00 IMPRESSION: Postprocedural changes from recent G-tube placement with small amounts of peritoneal free air. Contrast is present in the stomach and small bowel. Moderate bilateral pleural effusions and basilar atelectasis, increased compared with the prior study. Assessment & Plan - Diagnosis (1) Diabetic infection of right foot Is this a current diagnosis for this admission?: Yes Plan: Impression: Septic right foot with persisting soft tissue and bone infection, unresolved in comatose GCS 6-7, ventilated 59-year-old Afro-Japanese male, now with worsening renal failure Recommendations: 1. In light of patient's healthcare power of deputy county attorney not consenting to the recommended therapy, specifically amputation, for the right lower extremity, the surgical service will sign off for now. We recommend continue local wound care dressing changes to the right foot. 2. If the patient's consents to a right [id number] amputation, please reconsult surgery. - Time Time Spent: 30 to 50 Minutes
--- NOTE | 2020-04-29 10:34 | PDOC CRITICAL CARE PROG REPORT ---
General Date:: 04/29/20 ICU Day:: 18 Ventilator Day:: 18 Hospital Day:: 19 Resuscitation Status: Full Code Medical Power of Swiss Type Screw Machine Operator: Amber Review of systems relevant to events:: Neurological, pulmonary. Reason for ICU Addmission:: Post respiratorycardiac arrest, Intubated - Medications: Medications reviewed and adjusted accordingly: Yes Vasopressors:: None Sedation:: None. Physical Exam Vital Signs: Temp Pulse Resp BP Pulse Ox 100.6 F H 90 45 H 155/78 H 96 04/29/20 08:00 04/29/20 08:00 04/29/20 08:00 04/29/20 08:00 04/29/20 08:59 Intake & Output 04/28/20 04/29/20 04/30/20 06:59 06:59 06:59 Intake Total 1135 1834 Output Total 1435 1325 45 Balance -300 509 -45 Weight 84.9 kg 82.4 kg Weight/Height Weight 82.4 kg Height 6 ft General appearance: PRESENT: no acute distress Head exam: PRESENT: atraumatic, normocephalic Eye exam: PRESENT: conjunctiva pink, EOMI, PERRLA. ABSENT: scleral icterus Ear exam: PRESENT: normal external ear exam Mouth exam: PRESENT: moist, tongue midline Neck exam: PRESENT: tracheostomy Respiratory exam: PRESENT: clear to auscultation king. ABSENT: rales, rhonchi, wheezes Cardiovascular exam: PRESENT: RRR. ABSENT: diastolic murmur, rubs, systolic murmur GI/Abdominal exam: PRESENT: normal bowel sounds, soft, other - PEG working well. ABSENT: distended, guarding, mass, organolmegaly, rebound, tenderness Rectal exam: PRESENT: deferred Gentrourinary exam: PRESENT: indwelling catheter Extremities exam: PRESENT: other - L AKA, R foot bandaged. Musculoskeletal exam: PRESENT: normal inspection Neurological exam: PRESENT: other - Opens eys to touch, voice. No purposeful movements. Skin exam: PRESENT: dry, intact, warm. ABSENT: cyanosis, rash Tubes/Lines: PRESENT: Peg Tube, Other - Tracheotomy. Laboratory/Radiographs Laboratory Results: 04/27/20 04:22 04/29/20 04:08 04/28/20 04/29/20 10:39 04:08 Sodium 147.3 H 149.2 H Potassium 3.4 L 3.4 L Chloride 117 H 118 H Carbon Dioxide 22 24 Anion Gap 8 7 BUN 34 H 31 H Creatinine 3.63 H 3.42 H Est GFR ( Amer) 21 L 23 L Glucose 160 H 142 H Calcium 8.4 8.4 04/11/20 04/11/20 04/11/20 01:02 01:02 15:35 Creatine Kinase 743 H CK-MB (CK-2) 2.41 Troponin I 0.077 0.261 04/13/20 04/13/20 04/16/20 04:43 04:43 14:30 Creatine Kinase 540 H 213 H CK-MB (CK-2) Troponin I 0.126 Impressions: Foot X-Ray 04/09/20 20:34 IMPRESSION: Findings are consistent with osteomyelitis involving the lateral aspect of the fifth metatarsal base. Associated underlying pathologic fracture deformity. Superimposed foci of soft tissue gas at this site could indicate infection with a gas-forming organism. copyright 2011 [employer]- All Rights Reserved Chest CT 04/11/20 00:00 IMPRESSION: MILD CARDIOMEGALY. BILATERAL PLEURAL EFFUSIONS WITH FAINT ATELECTASIS. NO LOBAR INFILTRATES. Head CT 04/15/20 05:00 IMPRESSION: NORMAL BRAIN CT WITHOUT CONTRAST. SINUS DISEASE. EVIDENCE OF ACUTE STROKE: NO. Venous Doppler Study 04/20/20 00:00 IMPRESSION: NO EVIDENCE DVT OR SVT IN EITHER LEG. KUB X-Ray 04/23/20 00:00 IMPRESSION: NO RADIOGRAPHIC EVIDENCE FOR ACUTE ABDOMINAL DISEASE. Chest X-Ray 04/24/20 05:00 IMPRESSION: STABLE APPEARANCE OF THE CHEST. SUPPORT DEVICES UNCHANGED. Abdomen/Pelvis CT 04/25/20 00:00 IMPRESSION: Postprocedural changes from recent G-tube placement with small amounts of peritoneal free air. Contrast is present in the stomach and small bowel. Moderate bilateral pleural effusions and basilar atelectasis, increased compared with the prior study. All labs, radiographs, diagnostic studies and EKGs were personally reviewed: Yes In addition, reports of radiographic and diagnostic studies were read: Yes Assessment and Plan - Diagnosis (1) Brain anoxic injury Is this a current diagnosis for this admission?: Yes Plan: No functional recovery. 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 (3) Chronic kidney disease Qualifiers: Chronic kidney disease stage: stage 4 (severe) Qualified Code(s): N18.4 - Chronic kidney disease, stage 4 (severe) Is this a current diagnosis for this admission?: Yes Plan: Still putting out urine. No need for HD yet. (4) Diabetes Qualifiers: Diabetes mellitus type: type 1 Diabetes mellitus complication status: with circulatory complication Diabetes mellitus complication detail: with peripher al angiopathy with gangrene Qualified Code(s): E10.52 - Type 1 diabetes m ellitus with diabetic peripheral angiopathy with gangrene Is this a current diagnosis for this admission?: Yes Plan: Controlled. (5) Diabetic infection of right foot Is this a current diagnosis for this admission?: Yes Plan: The patient needs an amputation as confirmed by both Christ Arnold and Stefani. still undecided. (6) Ileus Is this a current diagnosis for this admission?: Yes Plan: Resolved Plan Summary: Support as best we can. Case management to [facility]. Critical Time Critical Time (minutes): 35 Level of Care: ICU Anticipated discharge: SNF Within: Other -: 1. The care of a critical patient is a dynamic process. This note is a patient service representative synopsis but static in nature. The timeframe for treatments given in order is not necessarily the actual time these treatments may have been done. 2. This patient requires critical care secondary to ongoing requirements for therapy not offered or safe outside the critical care environment. Transfer to a lower level of care will result in altered life or limb morbidity and mortality. 3. Multidisciplinary rounds completed. 4. ABCDE bundle addressed.
[2020-04-29] MEDS: ASPIRIN 81 MG TABLET, CHEWABLE PEG SCH (11:33)
[2020-04-29] MEDS: MEROPENEM 500 MG in NORMAL SALINE 50 ML IV SCH ×2 (11:33→21:49)
[2020-04-29] MEDS: SENNOSIDES/DOCUSATE 8.6-50 MG 1 EACH TABLET NG SCH ×2 (11:34→21:49)
[2020-04-29] MEDS: METOPROLOL TARTRATE 25 MG TABLET PEG SCH ×2 (11:34→21:53)
[2020-04-29] MEDS: PANTOPRAZOLE SODIUM 40 MG VIAL IV SCH (11:34)
[2020-04-29] MEDS ORDERED: POTASSIUM CHLORIDE 20 MEQ PACKET PO ONE ×2 (16:09→17:00)
--- NOTE | 2020-04-29 16:19 | PDOC PROGRESS REPORT ---
Subjective Progress Note for:: 04/29/20 Subjective:: Patient was seen laying in the bed. Similar state as yesterday. His eyes did not open today. Urine output went down slightly. At this time the family is still debating whether they want to do a AKA of his right leg. Waiting placement at an outside facility Reason For Visit: RIGHT FOOT GAS GANGRENE,DIABETES,CKD Physical Exam Vital Signs: Temp Pulse Resp BP Pulse Ox 100.2 F 79 24 H 135/64 H 99 04/29/20 12:00 04/29/20 14:00 04/29/20 14:30 04/29/20 14:30 04/29/20 14:30 Intake & Output 04/28/20 04/29/20 04/30/20 06:59 06:59 06:59 Intake Total 1135 1884 983 Output Total 1435 1325 220 Balance -300 559 763 Weight 84.9 kg 82.4 kg General appearance: PRESENT: no acute distress, well-developed, well-nourished, other - -on a vent through his trach. No eye movement today. Mouth exam: PRESENT: moist, neck supple Neck exam: ABSENT: JVD, tracheal deviation Respiratory exam: PRESENT: clear to auscultation king. ABSENT: crackles, decrea sed breath sounds, wheezes Cardiovascular exam: PRESENT: +S1, +S2 GI/Abdominal exam: PRESENT: distended, soft. ABSENT: firm Extremities exam: PRESENT: pedal edema, +2 edema - /3+ Musculoskeletal exam: PRESENT: deformity - -left leg AKA Neurological exam: PRESENT: other - -no significant eye movement and he does not follow commands. ABSENT: alert, awake Skin exam: PRESENT: dry, intact, warm. ABSENT: cyanosis Results Laboratory Results: 04/27/20 04:22 04/29/20 04:08 04/29/20 04:08 Sodium 149.2 H Potassium 3.4 L Chloride 118 H Carbon Dioxide 24 Anion Gap 7 BUN 31 H Creatinine 3.42 H Est GFR ( Amer) 23 L Glucose 142 H Calcium 8.4 04/11/20 04/11/20 04/11/20 01:02 01:02 15:35 Creatine Kinase 743 H CK-MB (CK-2) 2.41 Troponin I 0.077 0.261 05/04/13/20 04/16/20 04:43 04:43 14:30 Creatine Kinase 540 H 213 H CK-MB (CK-2) Troponin I 0.126 Impressions: Foot X-Ray 04/09/20 20:34 IMPRESSION: Findings are consistent with osteomyelitis involving the lateral aspect of the fifth metatarsal base. Associated underlying pathologic fracture deformity. Superimposed foci of soft tissue gas at this site could indicate infection with a gas-forming organism. copyright 2010 [employer]- All Rights Reserved Chest CT 04/11/20 00:00 IMPRESSION: MILD CARDIOMEGALY. BILATERAL PLEURAL EFFUSIONS WITH FAINT ATELECT ASIS. NO LOBAR INFILTRATES. Head CT 04/15/20 05:00 IMPRESSION: NORMAL BRAIN CT WITHOUT CONTRAST. SINUS DISEASE. EVIDENCE OF ACUTE STROKE: NO. Venous Doppler Study 04/20/20 00:00 IMPRESSION: NO EVIDENCE DVT OR SVT IN EITHER LEG. KUB X-Ray 04/23/20 00:00 IMPRESSION: NO RADIOGRAPHIC EVIDENCE FOR ACUTE ABDOMINAL DISEASE. Chest X-Ray 04/24/20 05:00 IMPRESSION: STABLE APPEARANCE OF THE CHEST. SUPPORT DEVICES UNCHANGED. Abdomen/Pelvis CT 04/25/20 00:00 IMPRESSION: Postprocedural changes from recent G-tube placement with small amounts of peritoneal free air. Contrast is present in the stomach and small bowel. Moderate bilateral pleural effusions and basilar atelectasis, increased compared with the prior study. Assessment & Plan - Diagnosis (1) Acute on chronic renal failure Qualifiers: Acute renal failure type: with acute tubular necrosis Chronic kidney disease stage: stage 4 (severe) Qualified Code(s): N17.0 - Acute kidney failure with tubular necrosis; N18.4 - Chronic kidney disease, stage 4 (severe) Is this a current diagnosis for this admission?: Yes Plan: nonoliguric, due to ATN for multiple reasons. See consult note for reasons. With the decrease in urine output I am decreasing the LR to 100mL/h and adding furosemide 10mg IV BID. He also continues to have his creatinine and BUN decrease. Patient will be passed off to Dr. Amador tomorrow. (2) Acute respiratory failure with hypoxia and hypercapnia Is this a current diagnosis for this admission?: Yes Plan: on a vent through a trach currently (3) Brain anoxic injury Is this a current diagnosis for this admission?: Yes Plan: looks to have a poor prognosis. (4) Chronic kidney disease Qualifiers: Chronic kidney disease stage: stage 4 (severe) Qualified Code(s): N18.4 - Chronic kidney disease, stage 4 (severe) Is this a current diagnosis for this admission?: Yes Plan: looks to have had a possible baseline around 1.6. (5) Diabetes Qualifiers: Diabetes mellitus type: type 1 Diabetes mellitus complication status: with circulatory complication Diabetes mellitus complication detail: with peripheral angiopathy with gangrene Qualified Code(s): E10.52 - Type 1 diabetes mellitus with diabetic peripheral angiopathy with gangrene Is this a current diagnosis for this admission?: Yes (6) Hypertension Is this a current diagnosis for this admission?: Yes Plan: controlled (7) Hypokalemia Is this a current diagnosis for this admission?: Yes Plan: giving 40mEQ of potassium through his peg tube. Patient will need to be placed on potassium supplements. Continue on LRs (8) Metabolic acidosis Is this a current diagnosis for this admission?: Yes Plan: resolved (9) Osteomyelitis of ankle or foot, right, acute Is this a current diagnosis for this admission?: Yes Plan: per gen surg - Notes Notes: case was discussed with Dr. Amador
[2020-04-29] MEDS: CIPROFLOXACIN HCL 500 MG TABLET PEG SCH (17:18)
[2020-04-29] MEDS: FUROSEMIDE INJ/PF 20 MG/2 ML SDV IV SCH (17:18)
[2020-04-29] MEDS: INSULIN GLARGINE,HUM.REC.ANLOG 1,000 UNIT/10 ML VIAL SUBCUT SCH (21:49)
[2020-04-30 04:06] LABS: ABSOLUTE BASOPHILS # (AUTO) 0.1 10^3/uL (0.0-0.2); ABSOLUTE EOSINOPHILS # (AUTO) 0.4 10^3/uL (0.0-0.6); ABSOLUTE LYMPHOCYTES (AUTO) 1.6 10^3/uL (0.5-4.7); ABSOLUTE MONOCYTES (AUTO) 0.9 10^3/uL (0.1-1.4); ABSOLUTE NEUT (AUTO) 8.4 10^3/uL (1.7-8.2); EOSINOPHILS % (AUTO) 3.4 % (0-6); HEMATOCRIT 22.9 % (37.9-51.0); LYMPHOCYTES % (AUTO) 13.7 % (13-45); MEAN CORPUSCULAR HEMOGLOBIN 27.9 pg (27.0-33.4); MEAN CORPUSCULAR HGB CONC 33.6 g/dL (32.0-36.0); MEAN CORPUSCULAR VOLUME 83 fl (80-97); MONOCYTES % (AUTO) 8.3 % (3-13); PLATELET COUNT 442 10^3/uL (150-450); RED BLOOD COUNT 2.75 10^6/uL (4.35-5.55); RED CELL DISTRIBUTION WIDTH 15.5 % (11.5-14.0); SEGMENTED NEUTROPHILS % (AUTO) 73.6 % (42-78); TOTAL CELLS COUNTED % (AUTO) 100 %; WHITE BLOOD COUNT 11.4 10^3/uL (4.0-10.5)
[2020-04-30 04:07] LABS: HEMOGLOBIN 7.7 g/dL (13.5-17.0)
[2020-04-30 04:26] LABS: BLOOD UREA NITROGEN 30 mg/dL (7-20); CALCIUM 8.4 mg/dL (8.4-10.2); GLUCOSE 119 mg/dL (75-110); POTASSIUM 4.1 mmol/L (3.6-5.0)
[2020-04-30 04:31] LABS: CARBON DIOXIDE 26 mmol/L (22-30); CHLORIDE 117 mmol/L (98-107)
[2020-04-30 04:43] LABS: ANION GAP 4 (5-19)
[2020-04-30] MEDS: INSULIN REG, HUMAN 100 UNIT/ML 3 ML VIAL (PYX) SUBCUT SCH ×4 (05:14→23:16)
[2020-04-30] MEDS: HEPARIN SOD (PORCINE) 5,000 UNIT/ML 1 ML VIAL SUBCUT SCH ×3 (05:15→21:13)
[2020-04-30] MEDS: FUROSEMIDE INJ/PF 20 MG/2 ML SDV IV SCH ×2 (05:15→17:52)
[2020-04-30] MEDS: HYDRALAZINE HCL 25 MG TABLET PEG SCH (05:15)
[2020-04-30] MEDS: AMLODIPINE BESYLATE 5 MG TABLET PEG SCH ×2 (05:15→17:52)
[2020-04-30] MEDS: METOPROLOL TARTRATE 25 MG TABLET PEG SCH ×2 (10:59→21:14)
[2020-04-30] MEDS: PANTOPRAZOLE SODIUM 40 MG VIAL IV SCH (10:59)
[2020-04-30] MEDS: METOCLOPRAMIDE HCL ORAL SOLN 10 MG/10 ML UDCUP GT SCH ×2 (10:59)
[2020-04-30] MEDS: MEROPENEM 500 MG in NORMAL SALINE 50 ML IV SCH ×2 (10:59→21:13)
[2020-04-30] MEDS: ASPIRIN 81 MG TABLET, CHEWABLE PEG SCH (10:59)
[2020-04-30] MEDS: ACETAMINOPHEN SOLN 325 MG/10.15 ML UDCUP PEG PRN ×2 (11:00→17:51)
[2020-04-30] MEDS: SENNOSIDES/DOCUSATE 8.6-50 MG 1 EACH TABLET NG SCH (11:00)
--- NOTE | 2020-04-30 12:18 | PDOC PROGRESS REPORT ---
Subjective Progress Note for:: 04/30/20 Reason For Visit: Patient seen today in the ICU. He is still remains intubated and sedated. Still unresponsive to painful stimuli. Labs and medications were reviewed. Discussions were done with the treating nurse in the ICU. He continues to make good amounts of urine. Physical Exam Vital Signs: Temp Pulse Resp BP Pulse Ox 99.9 F 101 H 22 H 159/73 H 98 04/30/20 08:00 04/30/20 10:00 04/30/20 10:01 04/30/20 10:00 04/30/20 10:01 Intake & Output 04/29/20 04/30/20 05/01/20 06:59 06:59 06:59 Intake Total 1884 2208 Output Total 1325 0585 500 Balance 559 -147 -500 Weight 82.4 kg 83.2 kg Exam: Remains intubated and sedated. Respiratory exam: PRESENT: clear to auscultation king. ABSENT: crackles Cardiovascular exam: PRESENT: +S1, +S2 GI/Abdominal exam: PRESENT: distended, soft. ABSENT: firm Extremities exam: PRESENT: pedal edema Skin exam: ABSENT: erythema, mottled, rash Results Laboratory Results: 04/30/20 04:00 04/30/20 04:00 04/30/20 04/30/20 04:00 04:00 WBC 11.4 H RBC 2.75 L Hgb 7.7 L Hct 22.9 L MCV 83 MCH 27.9 MCHC 33.6 RDW 15.5 H Plt Count 442 Seg Neutrophils % 73.6 Sodium 146.9 H Potassium 4.1 Chloride 117 H Carbon Dioxide 26 Anion Gap 4 L BUN 30 H Creatinine 2.91 H Est GFR ( Amer) 27 L Glucose 119 H Calcium 8.4 04/11/20 04/11/20 04/11/20 01:02 01:02 15:35 Creatine Kinase 743 H CK-MB (CK-2) 2.41 Troponin I 0.077 0.261 04/13/20 04/13/20 04/16/20 04:43 04:43 14:30 Creatine Kinase 540 H 213 H CK-MB (CK-2) Troponin I 0.126 Impressions: Foot X-Ray 04/09/20 20:34 IMPRESSION: Findings are consistent with osteomyelitis involving the lateral aspect of the fifth metatarsal base. Associated underlying pathologic fracture deformity. Superimposed foci of soft tissue gas at this site could indicate infection with a gas-forming organism. copyright 2010 [employer]- All Rights Reserved Chest CT 04/11/20 00:00 IMPRESSION: MILD CARDIOMEGALY. BILATERAL PLEURAL EFFUSIONS WITH FAINT ATELECTASIS. NO LOBAR INFILTRATES. Head CT 04/15/20 05:00 IMPRESSION: NORMAL BRAIN CT WITHOUT CONTRAST. SINUS DISEASE. EVIDENCE OF ACUTE STROKE: NO. Venous Doppler Study 04/20/20 00:00 IMPRESSION: NO EVIDENCE DVT OR SVT IN EITHER LEG. KUB X-Ray 04/23/20 00:00 IMPRESSION: NO RADIOGRAPHIC EVIDENCE FOR ACUTE ABDOMINAL DISEASE. Chest X-Ray 04/24/20 05:00 IMPRESSION: STABLE APPEARANCE OF THE CHEST. SUPPORT DEVICES UNCHANGED. Abdomen/Pelvis CT 04/25/20 00:00 IMPRESSION: Postprocedural changes from recent G-tube placement with small amounts of peritoneal free air. Contrast is present in the stomach and small bowel. Moderate bilateral pleural effusions and basilar atelectasis, increased compared with the prior study. Assessment & Plan - Diagnosis (1) Acute on chronic renal failure Qualifiers: Acute renal failure type: with acute tubular necrosis Chronic kidney dis ease stage: stage 4 (severe) Qualified Code(s): N17.0 - Acute kidney failure with tubular necrosis; N18.4 - Chronic kidney disease, stage 4 (severe) Is this a current diagnosis for this admission?: Yes Plan: Patient remains nonoliguric. His renal numbers are improving. Electrolytes are stable including potassium and acidosis has resolved. I would continue on current guidelines. (2) Acute respiratory failure with hypoxia and hypercapnia Is this a current diagnosis for this admission?: Yes Plan: Remains intubated and sedated with unfortunately anoxic brain injury from prolonged cardiac arrest. (3) Brain anoxic injury Is this a current diagnosis for this admission?: Yes Plan: Status quo. (4) Cardiopulmonary arrest with successful resuscitation Is this a current diagnosis for this admission?: Yes Plan: Unfortunately has anoxic brain injury. So far poor recovery signs. (5) Diabetic infection of right foot Is this a current diagnosis for this admission?: Yes Plan: Patient with features of sepsis and osteomyelitis of diabetic right foot. Unfortunately family so far not willing to proceed with any definitive treat ment. (6) Hypertension Is this a current diagnosis for this admission?: Yes Plan: Relatively stable. Monitor
[2020-04-30] MEDS ORDERED: NORMAL SALINE 250 ML IV PRN ×2 (12:36)
--- NOTE | 2020-04-30 12:45 | PDOC CRITICAL CARE PROG REPORT ---
General Date:: 04/30/20 ICU Day:: 19 Ventilator Day:: 19 Hospital Day:: 20 Resuscitation Status: Full Code Medical Power of Manager Wastewater: Amber Events in the past 12 to 24 Hours:: 04.30.2020: Patient continues to convalesce in the ICU. He has had some secretions from his tracheostomy site but no bleeding. Blood pressures have been more stable as well as glucose on current regimen. No seizures have been noted. 04.29.2020; [place]:Did not tolerate trach collar. Doing better on PSV. Review of systems relevant to events:: 04.30.2020: Patient had bowel movement with current regimen. Reglan has been stopped because of the concurrent use of Cipro. White count is decreased and sodium levels have improved as well. Reason for ICU Addmission:: Post respiratorycardiac arrest, Intubated - Medications: Vasopressors:: None Sedation:: None Physical Exam Vital Signs: Temp Pulse Resp BP Pulse Ox 100.2 F 90 16 157/74 H 100 04/30/20 12:00 04/30/20 12:00 04/30/20 12:00 04/30/20 12:00 04/30/20 12:00 Intake & Output 04/29/20 04/30/20 05/01/20 06:59 06:59 06:59 Intake Total 1884 2208 Output Total 1325 2355 700 Balance 559 147 -700 Weight 82.4 kg 83.2 kg Weight/Height Weight 83.2 kg Height 6 ft General appearance: PRESENT: no acute distress, well-developed, well-nourished Exam: Older appearing 59-year-old black male with tracheostomy. Appears to respond to voice but does not track consistently. Eye exam: PRESENT: conjunctiva pink, PERRLA. ABSENT: conjunctival injection, nystagmus, scleral icterus Mouth exam: PRESENT: moist, other - Tongue is macerated from previous biting from seizure. Lower dental alveolar region shows significant tooth loss. Tongue is swollen but minimally erythematous. Teeth exam: PRESENT: poor dentation Neck exam: PRESENT: tracheostomy. ABSENT: carotid bruit, JVD, lymphadenopathy Respiratory exam: PRESENT: clear to auscultation king, unlabored. ABSENT: accessory muscle use, rales, rhonchi, tachypnea, wheezes Cardiovascular exam: PRESENT: RRR, +S1, +S2 Pulses: PRESENT: other - No palpable pulse in the right dorsalis pedis. Left leg is BKA. ABSENT: normal dorsalis pedis pul GI/Abdominal exam: PRESENT: normal bowel sounds, soft, other - PEG tube site is clean dry and intact and integrity of the balloon appears to be intact. ABSENT: ascites, distended, guarding, mass, organolmegaly, rebound, tenderness Gentrourinary exam: PRESENT: indwelling catheter Extremities exam: PRESENT: pedal edema, +1 edema, other - Anasarca of upper and lower extremities Musculoskeletal exam: PRESENT: deformity - Has left BKA. Right foot has surgical dressing on from previous I&D. ABSENT: tenderness Neurological exam: PRESENT: altered - Patient will open eyes and intermittently move them to voice but not to command. [place] Coma Scale is 3-1-4 with a score of 7. Based on my previous exam the arousal and eye opening are much improved. He does have what appears to be slightly more purposeful movements to pain but not seen consistently Psychiatric exam: PRESENT: unusual affect Focused psych exam: ABSENT: restlessness Skin exam: ABSENT: erythema, jaundice, petechiae Tubes/Lines: PRESENT: Peg Tube, Other - Tracheostomy, James type urinary catheter Laboratory/Radiographs Laboratory Results: 04/30/20 04:00 04/30/20 04:00 04/30/20 04/30/20 04:00 04:00 WBC 11.4 H RBC 2.75 L Hgb 7.7 L Hct 22.9 L MCV 83 MCH 27.9 MCHC 33.6 RDW 15.5 H Plt Count 442 Seg Neutrophils % 73.6 Sodium 146.9 H Potassium 4.1 Chloride 117 H Carbon Dioxide 26 Anion Gap 4 L BUN 30 H Creatinine 2.91 H Est GFR ( Amer) 27 L Glucose 119 H Calcium 8.4 04/11/20 04/11/20 04/11/20 01:02 01:02 15:35 Creatine Kinase 743 H CK-MB (CK-2) 2.41 Troponin I 0.077 0.261 04/13/20 04/13/20 04/16/20 04:43 04:43 14:30 Creatine Kinase 540 H 213 H CK-MB (CK-2) Troponin I 0.126 Impressions: Foot X-Ray 04/09/20 20:34 IMPRESSION: Findings are consistent with osteomyelitis involving the lateral aspect of the fifth metatarsal base. Associated underlying pathologic fracture deformity. Superimposed foci of soft tissue gas at this site could indicate infection with a gas-forming organism. copyright 2010 [employer]- All Rights Reserved Chest CT 04/11/20 00:00 IMPRESSION: MILD CARDIOMEGALY. BILATERAL PLEURAL EFFUSIONS WITH FAINT ATELECTASIS. NO LOBAR INFILTRATES. Head CT 04/15/20 05:00 IMPRESSION: NORMAL BRAIN CT WITHOUT CONTRAST. SINUS DISEASE. EVIDENCE OF ACUTE STROKE: NO. Venous Doppler Study 04/20/20 00:00 IMPRESSION: NO EVIDENCE DVT OR SVT IN EITHER LEG. KUB X-Ray 04/23/20 00:00 IMPRESSION: NO RADIOGRAPHIC EVIDENCE FOR ACUTE ABDOMINAL DISEASE. Chest X-Ray 04/24/20 05:00 IMPRESSION: STABLE APPEARANCE OF THE CHEST. SUPPORT DEVICES UNCHANGED. Abdomen/Pelvis CT 04/25/20 00:00 IMPRESSION: Postprocedural changes from recent G-tube placement with small amounts of peritoneal free air. Contrast is present in the stomach and small bowel. Moderate bilateral pleural effusions and basilar atelectasis, increased compared with the prior study. All labs, radiographs, diagnostic studies and EKGs were personally reviewed: Yes In addition, reports of radiographic and diagnostic studies were read: Yes Assessment and Plan - Diagnosis (1) Cardiopulmonary arrest with successful resuscitation Is this a current diagnosis for this admission?: Yes (2) Brain anoxic injury Is this a current diagnosis for this admission?: Yes (3) Coma Qualifiers: Coma depth: [place] coma 3-8 Coma timin hours or more after hospital admission Qualified Code(s): R40.2434 - [place] coma scale score 3-8, 24 hours or more after hospital admission Is this a current diagnosis for this admission?: Yes (4) Myoclonia epileptica Is this a current diagnosis for this admission?: Yes Plan: Improved, no longer present (5) Fever Qualifiers: Fever type: unspecified Qualified Code(s): R50.9 - Fever, unspecified Is this a current diagnosis for this admission?: Yes (6) Acute on chronic renal failure Qualifiers: Acute renal failure type: with acute tubular necrosis Chronic kidney disease stage: stage 4 (severe) Qualified Code(s): N17.0 - Acute kidney failure with tubular necrosis; N18.4 - Chronic kidney disease, stage 4 (severe) Is this a current diagnosis for this admission?: Yes (7) Metabolic acidosis Is this a current diagnosis for this admission?: Yes (8) Acute respiratory failure with hypoxia and hypercapnia Is this a current diagnosis for this admission?: Yes Plan Summary: Respiratory: Patient has poor neurological function which is resulted in the need for prolonged mechanical ventilation and resultant tracheostomy. Continue to monitor for neurological improvement but will need long-term rehab from both a respiratory and neurological component. Continue current care. Patient is unable to be weaned or liberated secondary to neurological dysfunction. Continue to monitor and control secretions Infectious: Patient has been placed on dual therapy for gram-negative Pseudomonas coverage. Given his improvement in white count we will continue this but will need to watch QTC and neurological function on Levaquin. Hopefully with the removal of the leg on the right will be able to discontinue antibiotics. Patient to have right AKA tomorrow. Have ordered blood cultures for the morning. Cardiac: Patient's blood pressure has improved. We will continue to monitor and adjust accordingly. Hematologic: Patient has anemia related to critical illness. Will type and screen and have ordered coagulation studies for potential blood loss associated with amputation. Have stopped heparin for after midnight. Endocrine: Will need long-acting insulin held after midnight with glucose follow-up. Continue to monitor accordingly and supportively. Renal: GFR has improved. Patient still is edematous and will continue to provide diuresis. IV fluids have been discontinued. Will attempt to remove James after surgery. Metabolic: Continue to monitor electrolyte status. Alimentary: Tube feeds on hold after midnight. PEG tube appears to be clean dry and intact. Neurologic: By far the biggest concern is the neurological dysfunction. He had been on L-dopa and Ritalin in hopes to improve his overall function but this does not appear to have helped and these have been discontinued. 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 Had lengthy discussion with who wishes to pursue aggressive care but has a balanced and reasonable agreement that if the patient would decline then we would regroup and discuss what would be in his best interest. Sedation: No active sedation Lines/Tubes: Will attempt to place PICC line today Other: Scheduled for right above-knee amputation. Have ordered chlorhexidine bath. Type and screen as well as coagulation studies have been ordered. Heparin to be held after midnight as well as tube feedings. Critical Time Critical Time (minutes): 55 - Including prognostic discussion with and follow-up with surgery Level of Care: ICU Anticipated discharge: Acute Rehab Within: within 72 hours, Other - Case management is working on placement for the patient. It appears that [place], [place] is the acceptable rehabilitation program for this . -: 1. The care of a critical patient is a dynamic process. This note is a provider relations representative synopsis but static in nature. The timeframe for treatments given in order is not necessarily the actual time these treatments may have been done. 2. This patient requires critical care secondary to ongoing requirements for therapy not offered or safe outside the critical care environment. Transfer to a lower level of care will result in altered life or limb morbidity and mortality. 3. Multidisciplinary rounds completed. 4. ABCDE bundle addressed.
[2020-04-30] MEDS ORDERED: HYDRALAZINE HCL 25 MG TABLET PEG SCH (14:00)
--- NOTE | 2020-04-30 16:02 | RADIOLOGY REPORT (SQ) ---
EXAM DESCRIPTION: PICC INSERTION IMAGES COMPLETED DATE/TIME: 04/30/2020 3:26 pm REASON FOR STUDY: Poor IV access, need for surgery COMPARISON: None. FLUOROSCOPY TIME: None 3 images saved to PACS. TECHNIQUE: Fluoroscopic and ultrasound guided PICC placement. LIMITATIONS: None. PROCEDURE: The procedure was performed at the bedside in the ICU. Written consent and assessment we re obtained. Ultrasound evaluation of potential access sites were performed. After successfully ident ifying a patent basilic vein in the right upper extremity, the right arm was prepped and draped in a sterile fashion along with the ultrasound probe. The entry site was anesthetized with 1% lidocaine. A 21 gauge 7 cm needle was advanced through the skin and into the basilic vein under live ultrasound g uidance. An ultrasound image was saved to PACS confirming access site. A .018 guide wire was then i nserted through the needle and into the venous system. The needle was then removed and an 11 blade sc alpel was used to make a 1cm skin incision. A 5 fr peel-away sheath was advanced over the wire and i nto the venous system. A measurement was then made using the existing wire and portable images. The w alicia was then removed and trimmed. The PICC was advanced through the peel-away sheath and into the rita ous system. The peel-away sheath was removed and the catheter was adhered to the patients arm with a stat lock. The catheter was then aspirated and flushed and a sterile bandage was placed over the acce ss site. A portable image was saved to PACS confirming the catheter tip within the SVC. IMPRESSION: SUCCESSFUL PLACEMENT OF A 5 FR DUAL LUMEN 42 CM PICC IN THE RIGHT BASILIC VEIN. COMMENT: Patient medication list reviewed: Yes- Quality ID# 130:Eligible professional attests to doc umenting in the medical record they obtained, updated, or reviewed the patient's current medications. . Quality ID 145: Final reports for procedures using fluoroscopy that document radiation exposure yoselin katie, or exposure time and number of fluorographic images (if radiation exposure indices are not avail able) Quality ID #76: The patient was prepped and draped using maximum sterile barrier technique including cap, mask, sterile gown, sterile gloves, a large sterile sheet, hand hygiene, and 2% Chlorhexidine fo r cutaneous antisepsis. When ultrasound is used, sterile ultrasound techniques are followed requiring sterile gel and sterile probes. TECHNICAL DOCUMENTATION: JOB ID: [id number] 2010 [employer]- All Rights Reserved rev-04/05 Reading location - IP/workstation name: [email or web address]
[2020-04-30] MEDS: HYDRALAZINE HCL 50 MG TABLET PEG SCH ×2 (17:16→21:14)
[2020-04-30] MEDS: CIPROFLOXACIN HCL 500 MG TABLET PEG SCH (17:51)
[2020-04-30 22:33] LABS: ABSOLUTE BASOPHILS # (AUTO) 0.1 10^3/uL (0.0-0.2); ABSOLUTE EOSINOPHILS # (AUTO) 0.4 10^3/uL (0.0-0.6); ABSOLUTE LYMPHOCYTES (AUTO) 1.4 10^3/uL (0.5-4.7); ABSOLUTE NEUT (AUTO) 7.2 10^3/uL (1.7-8.2); BASOPHILS % (AUTO) 0.8 % (0-2); EOSINOPHILS % (AUTO) 3.8 % (0-6); HEMATOCRIT 26.9 % (37.9-51.0); HEMOGLOBIN 9.1 g/dL (13.5-17.0); LYMPHOCYTES % (AUTO) 13.7 % (13-45); MEAN CORPUSCULAR HEMOGLOBIN 28.7 pg (27.0-33.4); MEAN CORPUSCULAR HGB CONC 33.8 g/dL (32.0-36.0); MEAN CORPUSCULAR VOLUME 85 fl (80-97); MONOCYTES % (AUTO) 9.6 % (3-13); PLATELET COUNT 435 10^3/uL (150-450); RED BLOOD COUNT 3.17 10^6/uL (4.35-5.55); SEGMENTED NEUTROPHILS % (AUTO) 72.1 % (42-78); TOTAL CELLS COUNTED % (AUTO) 100 %
[2020-05-01 04:57] LABS: ABSOLUTE BASOPHILS # (AUTO) 0.1 10^3/uL (0.0-0.2); ABSOLUTE EOSINOPHILS # (AUTO) 0.4 10^3/uL (0.0-0.6); ABSOLUTE LYMPHOCYTES (AUTO) 1.4 10^3/uL (0.5-4.7); ABSOLUTE NEUT (AUTO) 8.3 10^3/uL (1.7-8.2); BASOPHILS % (AUTO) 0.8 % (0-2); EOSINOPHILS % (AUTO) 3.4 % (0-6); HEMATOCRIT 29.9 % (37.9-51.0); HEMOGLOBIN 9.9 g/dL (13.5-17.0); LYMPHOCYTES % (AUTO) 12.6 % (13-45); MEAN CORPUSCULAR HEMOGLOBIN 27.8 pg (27.0-33.4); MEAN CORPUSCULAR HGB CONC 33.1 g/dL (32.0-36.0); MEAN CORPUSCULAR VOLUME 84 fl (80-97); MONOCYTES % (AUTO) 8.8 % (3-13); PLATELET COUNT 454 10^3/uL (150-450); RED BLOOD COUNT 3.57 10^6/uL (4.35-5.55); SEGMENTED NEUTROPHILS % (AUTO) 74.4 % (42-78); TOTAL CELLS COUNTED % (AUTO) 100 %; WHITE BLOOD COUNT 11.2 10^3/uL (4.0-10.5)
[2020-05-01] MEDS: HEPARIN SOD (PORCINE) 5,000 UNIT/ML 1 ML VIAL SUBCUT SCH ×3 (05:00→22:37)
[2020-05-01 05:01] LABS: INTERNATIONAL RATION (INR) 1.26; PROTHROMBIN TIME 15.9 SEC (11.4-15.4)
[2020-05-01 05:02] LABS: PARTIAL THROMBOPLASTIN TIME 38.6 SEC (23.5-35.8)
[2020-05-01 05:22] LABS: ALBUMIN 2.6 g/dL (3.5-5.0); ALKALINE PHOSPHATASE 91 U/L (38-126); ANION GAP 10 (5-19); ASPARTATE AMINO TRANSFERASE 57 U/L (17-59); BILIRUBIN,TOTAL 0.6 mg/dL (0.2-1.3); BLOOD UREA NITROGEN 26 mg/dL (7-20); CALCIUM 8.6 mg/dL (8.4-10.2); CARBON DIOXIDE 25 mmol/L (22-30); CHLORIDE 113 mmol/L (98-107); GLUCOSE 163 mg/dL (75-110); PHOSPHORUS 4.2 mg/dL (2.5-4.5); POTASSIUM 3.6 mmol/L (3.6-5.0)
[2020-05-01 05:32] LABS: ARTERIAL BLOOD BASE EXCESS 2.4 mmol/L; ARTERIAL BLOOD HCO3 25.4 mmol/L (20-24); ARTERIAL BLOOD PCO2 33.2 mmHg (35-45); ARTERIAL BLOOD PO2 82.1 mmHg (80-100); ARTERIAL BLOOD TOTAL CO2 26.4 mmol/L (23-27)
[2020-05-01 05:34] LABS: ARTERIAL BLOOD FIO2 40%
[2020-05-01] MEDS: CIPROFLOXACIN HCL 500 MG TABLET PEG SCH ×2 (06:15→17:17)
[2020-05-01] MEDS: AMLODIPINE BESYLATE 5 MG TABLET PEG SCH ×2 (06:15→20:30)
[2020-05-01] MEDS: HYDRALAZINE HCL 50 MG TABLET PEG SCH ×3 (06:15→22:37)
[2020-05-01] MEDS: FUROSEMIDE INJ/PF 20 MG/2 ML SDV IV SCH ×2 (06:16→17:21)
[2020-05-01] MEDS: INSULIN REG, HUMAN 100 UNIT/ML 3 ML VIAL (PYX) SUBCUT SCH ×4 (06:16→23:39)
--- NOTE | 2020-05-01 06:38 | RADIOLOGY REPORT (SQ) ---
EXAM DESCRIPTION: X-ray single view chest. CLINICAL HISTORY: 59 years Male, respiratory failure COMPARISON: 04/30/2020 and 04/24/2020 TECHNIQUE: Single portable x-ray view of the chest performed on 05/01/2020 at 6:26 AM FINDINGS: The lungs are well expanded. There is mild volume loss in the left lung base which may be due to a small effusion and/or atelectasis. Inflammatory changes are not excluded. A trace right pleural effusion is also suspected. There is no evidence of a pneumothorax. The cardiac silhouette is normal in size and configuration. The mediastinal contours are normal. No acute osseous abnormality is identified. No focal soft tissue abnormalities are seen. Lines and tubes: The tracheostomy cannula is stable and satisfactory in position. The right upper extremity PICC line catheter tip overlies the region of the cavoatrial junction. IMPRESSION: 1. Persistent volume loss in the left lung base which may be due to a combination of pleural fluid, atelectasis and/or inflammatory changes. 2. Suspect trace right pleural effusion. 3. Grossly stable life support lines and tubes.
[2020-05-01] MEDS ORDERED: BUPIVACAINE HCL 0.25 % INJ/PF (2.5 MG/1 ML) 30 ML VIAL ONE (07:16)
[2020-05-01] MEDS: MEROPENEM 500 MG in NORMAL SALINE 50 ML IV SCH ×2 (10:55→22:38)
[2020-05-01] MEDS: ASPIRIN 81 MG TABLET, CHEWABLE PEG SCH (10:56)
[2020-05-01] MEDS: METOPROLOL TARTRATE 25 MG TABLET PEG SCH ×2 (10:56→22:37)
[2020-05-01] MEDS ORDERED: NORMAL SALINE 10 ML SDV (SCHEDULED) IV SCH (11:00)
[2020-05-01] MEDS ORDERED: NORMAL SALINE 10 ML SDV (AFTER EACH USE) IV PRN (11:00)
[2020-05-01] MEDS ORDERED: METHYLPHENIDATE HCL 5 MG TABLET PO ONE (12:05)
[2020-05-01] MEDS ORDERED: CARBIDOPA/LEVODOPA 25-100 MG TABLET PO ONE (12:30)
--- NOTE | 2020-05-01 13:41 | PDOC CRITICAL CARE PROG REPORT ---
General Date:: 05/01/20 ICU Day:: 20 Ventilator Day:: 20 Hospital Day:: 21 Resuscitation Status: Full Code Medical Power of Commercial Account Executive: Amber Events in the past 12 to 24 Hours:: 05.01.2020: Patient seen after surgery. He is starting to move to voice and move eyes to voice. No seizures or abnormal movements noted. PICC line placed in right arm yesterday. 04.30.2020: Patient continues to convalesce in the ICU. He has had some secretions from his tracheostomy site but no bleeding. Blood pressures have been more stable as well as glucose on current regimen. No seizures have been noted. 04.29.2020; [place]:Did not tolerate trach collar. Doing better on PSV. Review of systems relevant to events:: 05.01.2020: Patient underwent above-knee amputation this morning prior to our evaluation. No untoward sequelae occurred perioperatively and patient is convalescing in the ICU. He did receive inhaled gas and neuromuscular blockade and is recovering and spontaneously breathing. Blood pressure has improved and he has had no fevers. Creatinine is still hovering between 2.9 and 3. He was discontinued from IV fluids yesterday and maintained on Lasix. He was given normal saline through the operative case 04.30.2020: Patient had bowel movement with current regimen. Reglan has been stopped because of the concurrent use of Cipro. White count is decreased and sodium levels have improved as well. Reason for ICU Addmission:: Post respiratorycardiac arrest, Intubated - Medications: Vasopressors:: None Sedation:: None Physical Exam Vital Signs: Temp Pulse Resp BP Pulse Ox 100.0 F 81 17 144/70 H 99 05/01/20 05:43 05/01/20 02:00 05/01/20 06:14 05/01/20 06:14 05/01/20 06:14 Intake & Output 04/30/20 05/01/20 05/02/20 06:59 06:59 06:59 Intake Total 2208 2800 Output Total 2355 2170 300 Balance -147 630 -300 Weight 83.2 kg 85 kg 85 kg Weight/Height Weight 85 kg Height 6 ft General appearance: PRESENT: no acute distress, well-developed, well-nourished Exam: 59-year-old black male with tracheostomy . No active distress. Moves eyes to voice but does not track consistently Head exam: PRESENT: atraumatic, normocephalic Eye exam: PRESENT: conjunctiva pink, PERRLA. ABSENT: conjunctival injection, nystagmus, scleral icterus Mouth exam: PRESENT: neck supple - Trach site clean and dry no bleeding, other - Tongue has moist dressing on. Obviously dental loss around the alveolar ridge. Teeth exam: PRESENT: poor dentation Neck exam: PRESENT: tracheostomy. ABSENT: carotid bruit, JVD, lymphadenopathy Respiratory exam: PRESENT: clear to auscultation king, unlabored. ABSENT: accessory muscle use, rales, rhonchi, tachypnea, wheezes Cardiovascular exam: PRESENT: RRR, +S1, +S2 Pulses: PRESENT: other - No ability to assess pulses. Patient has bilateral amputations GI/Abdominal exam: PRESENT: normal bowel sounds, soft, other - PEG tube is intact no erythema. ABSENT: ascites, distended, guarding, mass, organolmegaly, rebound, tenderness Extremities exam: PRESENT: other - Fresh right AKA. Dressing intact no bleeding Musculoskeletal exam: PRESENT: deformity - See above Neurological exam: PRESENT: altered, other - Lefty Coma Scale today is 4-1-4 with abnormal movements that appear at times purposeful with noxious stimulus. Skin exam: PRESENT: dry, intact, warm. ABSENT: cyanosis, rash Tubes/Lines: PRESENT: Central Line - PICC (placed 04.30.2020) in right antecubital space, Peg Tube, Other - James type urinary catheter, tracheostomy Laboratory/Radiographs Laboratory Results: 05/01/20 04:35 05/01/20 04:35 04/30/20 04/30/20 05/01/20 13:52 22:20 04:35 WBC 10.0 11.2 H RBC 3.17 L 3.57 L Hgb 9.1 L 9.9 L Hct 26.9 L 29.9 L MCV 85 84 MCH 28.7 27.8 MCHC 33.8 33.1 RDW 15.0 H 15.0 H Plt Count 435 454 H Seg Neutrophils % 72.1 74.4 Carbonic Acid HCO3/H2CO3 Ratio ABG pH ABG pCO2 ABG pO2 ABG HCO3 ABG O2 Saturation ABG Base Excess FiO2 Sodium Potassium Chloride Carbon Dioxide Anion Gap BUN Creatinine Est GFR ( Amer) Glucose Calcium Phosphorus Magnesium Total Bilirubin AST Alkaline Phosphatase Total Protein Albumin Blood Type A POSITIVE Antibody Screen NEGATIVE 05/01/20 05/01/20 04:35 05:15 WBC RBC Hgb Hct MCV MCH MCHC RDW Plt Count Seg Neutrophils % Carbonic Acid 1.00 L HCO3/H2CO3 Ratio 25:1 ABG pH 7.50 H ABG pCO2 33.2 L ABG pO2 82.1 ABG HCO3 25.4 H ABG O2 Saturation 97.0 ABG Base Excess 2.4 FiO2 40% Sodium 147.5 H Potassium 3.6 Chloride 113 H Carbon Dioxide 25 Anion Gap 10 BUN 26 H Creatinine 3.04 H Est GFR ( Amer) 26 L Glucose 163 H Calcium 8.6 Phosphorus 4.2 Magnesium 2.1 Total Bilirubin 0.6 AST 57 Alkaline Phosphatase 91 Total Protein 6.0 L Albumin 2.6 L Blood Type Antibody Screen 04/11/20 04/11/20 04/11/20 01:02 01:02 15:35 Creatine Kinase 743 H CK-MB (CK-2) 2.41 Troponin I 0.077 0.261 04/13/20 04/13/20 04/16/20 04:43 04:43 14:30 Creatine Kinase 540 H 213 H CK-MB (CK-2) Troponin I 0.126 Impressions: Foot X-Ray 04/09/20 20:34 IMPRESSION: Findings are consistent with osteomyelitis involving the lateral aspect of the fifth metatarsal base. Associated underlying pathologic fracture deformity. Superimposed foci of soft tissue gas at this site could indicate infection with a gas-forming organism. copyright 2010 [employer]- All Rights Reserved Chest CT 04/11/20 00:00 IMPRESSION: MILD CARDIOMEGALY. BILATERAL PLEURAL EFFUSIONS WITH FAINT ATELECTASIS. NO LOBAR INFILTRATES. Head CT 04/15/20 05:00 IMPRESSION: NORMAL BRAIN CT WITHOUT CONTRAST. SINUS DISEASE. EVIDENCE OF ACUTE STROKE: NO. Venous Doppler Study 04/20/20 00:00 IMPRESSION: NO EVIDENCE DVT OR SVT IN EITHER LEG. KUB X-Ray 04/23/20 00:00 IMPRESSION: NO RADIOGRAPHIC EVIDENCE FOR ACUTE ABDOMINAL DISEASE. Abdomen/Pelvis CT 04/25/20 00:00 IMPRESSION: Postprocedural changes from recent G-tube placement with small amounts of peritoneal free air. Contrast is present in the stomach and small bowel. Moderate bilateral pleural effusions and basilar atelectasis, increased compared with the prior study. PICC Line Insertion 04/30/20 00:00 IMPRESSION: SUCCESSFUL PLACEMENT OF A 5 FR DUAL LUMEN 42 CM PICC IN THE RIGHT BASILIC VEIN. Chest X-Ray 05/01/20 06:00 IMPRESSION: 1. Persistent volume loss in the left lung base which may be due to a combination of pleural fluid, atelectasis and/or inflammatory changes. 2. Suspect trace right pleural effusion. 3. Grossly stable life support lines and tubes. All labs, radiographs, diagnostic studies and EKGs were personally reviewed: Yes In addition, reports of radiographic and diagnostic studies were read: Yes Assessment and Plan - Diagnosis (1) Cardiopulmonary arrest with successful resuscitation Is this a current diagnosis for this admission?: Yes (2) Brain anoxic injury Is this a current diagnosis for this admission?: Yes (3) Coma Qualifiers: Coma depth: Lefty coma 3-8 Coma timin hours or more after hospital admission Qualified Code(s): R40.2434 - [place] coma scale score 3-8, 24 hours or more after hospital admission Is this a current diagnosis for this admission?: Yes (4) Myoclonia epileptica Is this a current diagnosis for this admission?: Yes (5) Fever Qualifiers: Fever type: unspecified Qualified Code(s): R50.9 - Fever, unspecified Is this a current diagnosis for this admission?: Yes (6) Acute on chronic renal failure Qualifiers: Acute renal failure type: with acute tubular necrosis Chronic kidney disease stage: stage 4 (severe) Qualified Code(s): N17.0 - Acute kidney failure with tubular necrosis; N18.4 - Chronic kidney disease, stage 4 (severe) Is this a current diagnosis for this admission?: Yes (7) Metabolic acidosis Is this a current diagnosis for this admission?: Yes (8) Acute respiratory failure with hypoxia and hypercapnia Is this a current diagnosis for this admission?: Yes Plan Summary: 05.01.2020: Respiratory: We will begin the patient on trach collar when he has recovered from surgery. Chest x-ray is clear and there should be no reason that he would not be able to be advanced to trach collar trials. We will continue to follow and monitor secretions. Infectious: Patient had right AKA which should effectively remove source of any infections at this point. Given the fact that the antibiotics may contribute to neurological dysfunction will attempt to de-escalate and discontinue in the next 24 hours. Will follow CBC and his clinical course to determine the best timing for this. We are appreciative of infectious disease input and will discuss with them further in the next 24 hours. My hope is to discontinue Cipro especially given its neurological effects. Cardiac: Blood pressure has improved. Have elected to restart Ritalin to help improve neurological function. Will need to watch for any untoward side effects related to this. Continue current therapy Hematologic: Patient did not require any blood products for surgery. We will continue to monitor his hemoglobin and hematocrit Endocrine: Continue following glucose control and parameters. Renal: Patient has CKD 4 with creatinine that is hovering between 2.5-3. He is grossly edematous which may be reflective of smoldering infection. We will continue to monitor closely. We will continue diuresis and follow creatinine response. Metabolic: Continue to monitor electrolyte profile. Alimentary: Have adjusted Nepro to be given over 20 hours to allow for ap propriate absorption of Sinemet which will be restarted. Continue to monitor PEG tube site and watch for any tube feeding intolerance. Neurologic: By far the most significant body system we are concerned about. Have elected to restart medications in hopes to awaken the patient's anoxic brain. Unable to obtain MRI to determine extent of disease however despite anatomical variations on MRI of the functional exam is still of most importance. He appears to be tracking and has sleep wake cycles. We will continue to determine best course of therapy. Given that his AKA is now complete we will move to transition him to neurological rehab facility and have asked case management for assistance. Sedation: None Lines/Tubes: Right antecubital PICC line placed Other: Met with at bedside. Discussed plan of care prognosis and next steps in this patient's management. 04.30.2020: Respiratory: Patient has poor neurological function which is resulted in the need for prolonged mechanical ventilation and resultant tracheostomy. Continue to monitor for neurological improvement but will need long-term rehab from both a respiratory and neurological component. Continue current care. Patient is unable to be weaned or liberated secondary to neurological dysfunction. Continue to monitor and control secretions Infectious: Patient has been placed on dual therapy for gram-negative Pseudomonas coverage. Given his improvement in white count we will continue this but will need to watch QTC and neurological function on Levaquin. Hopefully with the removal of the leg on the right will be able to discontinue antibiotics. Patient to have right AKA tomorrow. Have ordered blood cultures for the morning. Cardiac: Patient's blood pressure has improved. We will continue to monitor and adjust accordingly. Hematologic: Patient has anemia related to critical illness. Will type and screen and have ordered coagulation studies for potential blood loss associated with amputation. Have stopped heparin for after midnight. Endocrine: Will need long-acting insulin held after midnight with glucose follow-up. Continue to monitor accordingly and supportively. Renal: GFR has improved. Patient still is edematous and will continue to prov darlene diuresis. IV fluids have been discontinued. Will attempt to remove James after surgery. Metabolic: Continue to monitor electrolyte status. Alimentary: Tube feeds on hold after midnight. PEG tube appears to be clean dry and intact. Neurologic: By far the biggest concern is the neurological dysfunction. He had been on L-dopa and Ritalin in hopes to improve his overall function but this do es not appear to have helped and these have been discontinued. 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 Had lengthy discussion with who wishes to pursue aggressive care but has a balanced and reasonable agreement that if the patient would decline then we would regroup and discuss what would be in his best interest. Sedation: No active sedation Lines/Tubes: Will attempt to place PICC line today Other: Scheduled for right above-knee amputation. Have ordered chlorhexidine bath. Type and screen as well as coagulation studies have been ordered. Heparin to be held after midnight as well as tube feedings. Critical Time Critical Time (minutes): 65 - Prognostic discussion with at bedside Level of Care: ICU Anticipated discharge: Acute Rehab Within: within 72 hours -: 1. The care of a critical patient is a dynamic process. This note is a financial services sales representative synopsis but static in nature. The timeframe for treatments given in order is not necessarily the actual time these treatments may have been done. 2. This patient requires critical care secondary to ongoing requirements for therapy not offered or safe outside the critical care environment. Transfer to a lower level of care will result in altered life or limb morbidity and mo rtality. 3. Multidisciplinary rounds completed. 4. ABCDE bundle addressed.
[2020-05-01] MEDS: FENTANYL CITRATE INJ/PF 100 MCG/2 ML AMPUL IV PRN (16:12)
[2020-05-01] MEDS ORDERED: METOPROLOL TARTRATE PF/INJ 5 MG/5 ML SDV IV ONE (16:34)
[2020-05-01] MEDS: METHYLPHENIDATE HCL 5 MG TABLET PO SCH (17:15)
--- NOTE | 2020-05-01 17:46 | PDOC PROGRESS REPORT ---
Subjective Progress Note for:: 05/01/20 Subjective:: 59-year-old male with a severe diabetic foot infection, status post CODE BLUE, now with an anoxic brain injury. The patient is still on the ventilator and minimally responsive. His foot remains dressed at this time. 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 He has a history of severe peripheral vascular disease. No review of systems is obtainable secondary to his mental status. Reason For Visit: RIGHT FOOT GAS GANGRENE,DIABETES,CKD Physical Exam Vital Signs: Temp Pulse Resp BP Pulse Ox 100.0 F 87 16 136/66 H 100 05/01/20 05:43 05/01/20 08:00 05/01/20 07:44 05/01/20 07:44 05/01/20 16:23 Intake & Output 04/30/20 05/01/20 05/02/20 06:59 06:59 06:59 Intake Total 2208 2800 50 Output Total 2355 2170 950 Balance -147 630 -900 Weight 83.2 kg 85 kg 85 kg Exam: General appearance: PRESENT: no acute distress. ABSENT: cooperative Head exam: PRESENT: atraumatic, normocephalic Eye exam: ABSENT: scleral icterus Mouth exam: PRESENT: moist, neck supple Neck exam: ABSENT: meningismus, tenderness, thyromegaly, tracheal deviation Respiratory exam: PRESENT: other - Tracheostomy in place. Currently requiring ventilatory support Cardiovascular exam: PRESENT: tachycardia GI/Abdominal exam: PRESENT: soft. ABSENT: distended, guarding, tenderness Rectal exam: PRESENT: deferred Extremities exam: PRESENT: other - Multiple incisions on the remaining foot. Neurological exam: ABSENT: alert, awake, oriented to person, oriented to place, oriented to time, oriented to situation Psychiatric exam: ABSENT: agitated Focused psych exam: ABSENT: restlessness Skin exam: ABSENT: jaundice Results Laboratory Results: 05/01/20 04:35 05/01/20 04:35 04/30/20 05/01/20 05/01/20 22:20 04:35 04:35 WBC 10.0 11.2 H RBC 3.17 L 3.57 L Hgb 9.1 L 9.9 L Hct 26.9 L 29.9 L MCV 85 84 MCH 28.7 27.8 MCHC 33.8 33.1 RDW 15.0 H 15.0 H Plt Count 435 454 H Seg Neutrophils % 72.1 74.4 Carbonic Acid HCO3/H2CO3 Ratio ABG pH ABG pCO2 ABG pO2 ABG HCO3 ABG O2 Saturation ABG Base Excess FiO2 Sodium 147.5 H Potassium 3.6 Chloride 113 H Carbon Dioxide 25 Anion Gap 10 BUN 26 H Creatinine 3.04 H Est GFR ( Amer) 26 L Glucose 163 H Calcium 8.6 Phosphorus 4.2 Magnesium 2.1 Total Bilirubin 0.6 AST 57 Alkaline Phosphatase 91 Total Protein 6.0 L Albumin 2.6 L 05/01/20 05:15 WBC RBC Hgb Hct MCV MCH MCHC RDW Plt Count Seg Neutrophils % Carbonic Acid 1.00 L HCO3/H2CO3 Ratio 25:1 ABG pH 7.50 H ABG pCO2 33.2 L ABG pO2 82.1 ABG HCO3 25.4 H ABG O2 Saturation 97.0 ABG Base Excess 2.4 FiO2 40% Sodium Potassium Chloride Carbon Dioxide Anion Gap BUN Creatinine Est GFR ( Amer) Glucose Calcium Phosphorus Magnesium Total Bilirubin AST Alkaline Phosphatase Total Protein Albumin 04/11/20 04/11/20 04/11/20 01:02 01:02 15:35 Creatine Kinase 743 H CK-MB (CK-2) 2.41 Troponin I 0.077 0.261 04/13/20 04/13/20 04/16/20 04:43 04:43 14:30 Creatine Kinase 540 H 213 H CK-MB (CK-2) Troponin I 0.126 Impressions: Foot X-Ray 04/09/20 20:34 IMPRESSION: Findings are consistent with osteomyelitis involving the lateral aspect of the fifth metatarsal base. Associated underlying pathologic fracture deformity. Superimposed foci of soft tissue gas at this site could indicate infection with a gas-forming organism. copyright 2010 [employer]- All Rights Reserved Chest CT 04/11/20 00:00 IMPRESSION: MILD CARDIOMEGALY. BILATERAL PLEURAL EFFUSIONS WITH FAINT ATELECTASIS. NO LOBAR INFILTRATES. Head CT 04/15/20 05:00 IMPRESSION: NORMAL BRAIN CT WITHOUT CONTRAST. SINUS DISEASE. EVIDENCE OF ACUTE STROKE: NO. Venous Doppler Study 04/20/20 00:00 IMPRESSION: NO EVIDENCE DVT OR SVT IN EITHER LEG. KUB X-Ray 04/23/20 00:00 IMPRESSION: NO RADIOGRAPHIC EVIDENCE FOR ACUTE ABDOMINAL DISEASE. Abdomen/Pelvis CT 04/25/20 00:00 IMPRESSION: Postprocedural changes from recent G-tube placement with small amounts of peritoneal free air. Contrast is present in the stomach and small bowel. Moderate bilateral pleural effusions and basilar atelectasis, increased compared with the prior study. PICC Line Insertion 04/30/20 00:00 IMPRESSION: SUCCESSFUL PLACEMENT OF A 5 FR DUAL LUMEN 42 CM PICC IN THE RIGHT BASILIC VEIN. Chest X-Ray 05/01/20 06:00 IMPRESSION: 1. Persistent volume loss in the left lung base which may be due to a combination of pleural fluid, atelectasis and/or inflammatory changes. 2. Suspect trace right pleural effusion. 3. Grossly stable life support lines and tubes. Assessment & Plan - Diagnosis (1) Diabetic infection of right foot Is this a current diagnosis for this admission?: Yes (2) Osteomyelitis Qualifiers: Osteomyelitis type: unspecified type Osteomyelitis location: foot Laterality: right Qualified Code(s): M86.9 - Osteomyelitis, unspecified Is this a current diagnosis for this admission?: Yes - Plan Summary Plan Summary: This is a 59-year-old male with a severe diabetic foot infection and osteomyelitis. 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 He has a history of significant peripheral vascular disease. The most appropriate neck step for this patient is above-knee amputation due to his current mental status, as well as the unlikely event of him being able to ambulate ever again. I have discussed this at length with the patient's family. They have come to a decision, and are requesting above-knee amputation be performed. Plan for surgery today. Risks/benefits discussed, informed consent obtained, and all questions answered.
--- NOTE | 2020-05-01 17:51 | Operative Report ---
Nonrecallable Operative Report DATE OF SURGERY: 05/01/20 PREOPERATIVE DIAGNOSIS: 1. Severe diabetic foot infection. 2. Osteomyelitis of the right foot. 3. Peripheral vascular disease. POSTOPERATIVE DIAGNOSIS: Same as above OPERATION: Right above-knee amputation SURGEON: NOAH MELENDEZ ANESTHESIA: GA TISSUE REMOVED OR ALTERED: Right knee, leg, and foot COMPLICATIONS: None apparent ESTIMATED BLOOD LOSS: 100 cc PROCEDURE: Drains/implants: 15 [place] round Wong drain. Procedure in detail: After informed consent was obtained, the patient was brought into the operating room and laid in the supine position. The area of the right leg was prepped and draped in a normal sterile fashion. A fishmouth incision was created in the distal upper leg. Dissection was carried through the subcutaneous tissue using Bovie electrocautery. Anteriorly, the muscles were divided down to the femur, using electrocautery. The femur was dissected circumferentially. The femur was then divided using the reciprocating bone saw. Once the femur was divided, the neurovascular bundles found posteriorly. The vein and artery were suture ligated using 2-0 Vicryl. The vein and artery were divided, and the nerve was dissected. The nerve was divided as proximally as could be performed. Next, the dissection was taken posteriorly through the posterior musculature. The leg was then passed off the field and sent to pathology. Next, 2 pursestrings of #1 Prolene were used to secure the muscle groups to the femur. Once this was completed, 0 Vicryl sutures were used to approximate the fascia of the anterior and posterior leg. Before this was completed, a 15 [place] round Wong drain was placed into the muscular compartment, and pulled out through a separate stab incision. The drain was sutured to the skin using 2-0 nylon suture. The subcutaneous tissues were then closed using 2-0 Vicryl suture in interrupted subcutaneous fashion. The overlying skin was closed using skin jennifer. A dressing was placed, and the procedure was concluded. All sponge, instrument, and needle counts were correct x2. Condition: Poor.
[2020-05-01] MEDS: ATORVASTATIN CALCIUM 40 MG TABLET PO SCH (22:37)
[2020-05-01] MEDS: SENNOSIDES/DOCUSATE 8.6-50 MG 1 EACH TABLET NG SCH (22:48)
[2020-05-02 05:26] LABS: ABSOLUTE BASOPHILS # (AUTO) 0.1 10^3/uL (0.0-0.2); ABSOLUTE EOSINOPHILS # (AUTO) 0.2 10^3/uL (0.0-0.6); ABSOLUTE LYMPHOCYTES (AUTO) 1.3 10^3/uL (0.5-4.7); ABSOLUTE MONOCYTES (AUTO) 1.4 10^3/uL (0.1-1.4); ABSOLUTE NEUT (AUTO) 8.7 10^3/uL (1.7-8.2); EOSINOPHILS % (AUTO) 1.8 % (0-6); HEMATOCRIT 28.8 % (37.9-51.0); HEMOGLOBIN 9.5 g/dL (13.5-17.0); LYMPHOCYTES % (AUTO) 11.3 % (13-45); MEAN CORPUSCULAR HEMOGLOBIN 27.9 pg (27.0-33.4); MEAN CORPUSCULAR HGB CONC 32.9 g/dL (32.0-36.0); MEAN CORPUSCULAR VOLUME 85 fl (80-97); MONOCYTES % (AUTO) 11.7 % (3-13); PLATELET COUNT 483 10^3/uL (150-450); RED CELL DISTRIBUTION WIDTH 15.5 % (11.5-14.0); SEGMENTED NEUTROPHILS % (AUTO) 74.2 % (42-78); TOTAL CELLS COUNTED % (AUTO) 100 %; WHITE BLOOD COUNT 11.7 10^3/uL (4.0-10.5)
[2020-05-02 05:48] LABS: ALBUMIN 2.6 g/dL (3.5-5.0); ALKALINE PHOSPHATASE 85 U/L (38-126); ANION GAP 6 (5-19); ASPARTATE AMINO TRANSFERASE 48 U/L (17-59); BILIRUBIN,TOTAL 0.5 mg/dL (0.2-1.3); BLOOD UREA NITROGEN 27 mg/dL (7-20); CALCIUM 8.2 mg/dL (8.4-10.2); CARBON DIOXIDE 27 mmol/L (22-30); CHLORIDE 113 mmol/L (98-107); GLUCOSE 177 mg/dL (75-110); PHOSPHORUS 4.2 mg/dL (2.5-4.5); POTASSIUM 3.6 mmol/L (3.6-5.0); TOTAL PROTEIN 5.9 g/dL (6.3-8.2)
[2020-05-02] MEDS: AMLODIPINE BESYLATE 5 MG TABLET PEG SCH ×2 (06:21→17:56)
[2020-05-02] MEDS: HYDRALAZINE HCL 50 MG TABLET PEG SCH ×3 (06:21→21:06)
[2020-05-02] MEDS: CIPROFLOXACIN HCL 500 MG TABLET PEG SCH ×2 (06:21→17:55)
[2020-05-02] MEDS: FUROSEMIDE INJ/PF 20 MG/2 ML SDV IV SCH ×2 (06:22→17:57)
[2020-05-02] MEDS: HEPARIN SOD (PORCINE) 5,000 UNIT/ML 1 ML VIAL SUBCUT SCH ×3 (06:22→21:07)
[2020-05-02] MEDS: INSULIN REG, HUMAN 100 UNIT/ML 3 ML VIAL (PYX) SUBCUT SCH ×3 (06:27→17:55)
[2020-05-02] MEDS ORDERED: METHYLPHENIDATE HCL 5 MG TABLET PO SCH ×2 (08:00→13:00)
--- NOTE | 2020-05-02 10:48 | PDOC CRITICAL CARE PROG REPORT ---
General Date:: 05/02/20 ICU Day:: 21 Ventilator Day:: 21 - Post tracheostomy day #8 Hospital Day:: 22 Resuscitation Status: Full Code Medical Power of Dye Tub Operator: Amber Events in the past 12 to 24 Hours:: 05.02.2020: Patient is postop day #1 post right AKA. He was started back on L- dopa for neurological recovery as well as Ritalin. There has not been any notable sequelae. He still is moving head to voice and sound but no dramatic changes in the last 24 hours. Notably he has had a fever without an identifiable source. Investigations have been started including blood cultures. He has been on Cipro and meropenem for a number of days. 05.01.2020: Patient seen after surgery. He is starting to move to voice and move eyes to voice. No seizures or abnormal movements noted. PICC line placed in right arm yesterday. 04.30.2020: Patient continues to convalesce in the ICU. He has had some secretions from his tracheostomy site but no bleeding. Blood pressures have been more stable as well as glucose on current regimen. No seizures have been noted. 04.29.2020; [place]:Did not tolerate trach collar. Doing better on PSV. Review of systems relevant to events:: 05.02.2020: Fever noted without hypotension. Attempt to place on trach collar was met with increased respiratory rate. No seizures, Reiger's or hemodynamic instability 05.01.2020: Patient underwent above-knee amputation this morning prior to our evaluation. No untoward sequelae occurred perioperatively and patient is convalescing in the ICU. He did receive inhaled gas and neuromuscular blockade and is recovering and spontaneously breathing. Blood pressure has improved and he has had no fevers. Creatinine is still hovering between 2.9 and 3. He was discontinued from IV fluids yesterday and maintained on Lasix. He was given normal saline through the operative case 04.30.2020: Patient had bowel movement with current regimen. Reglan has been stopped because of the concurrent use of Cipro. White count is decreased and sodium levels have improved as well. Reason for ICU Addmission:: Post respiratorycardiac arrest, Intubated - Medications: Medications reviewed and adjusted accordingly: Yes Vasopressors:: None Sedation:: None Physical Exam Vital Signs: Temp Pulse Resp BP Pulse Ox 101.5 F H 98 12 144/67 H 100 05/02/20 08:00 05/02/20 10:00 05/02/20 10:00 05/02/20 10:00 05/02/20 10:00 Intake & Output 05/01/20 05/02/20 05/03/20 06:59 06:59 06:59 Intake Total 2800 200 Output Total 2170 2085 300 Balance 630 -4355 -300 Weight 85 kg 82.9 kg Weight/Height Weight 82.9 kg Height 6 ft General appearance: PRESENT: no acute distress, well-developed, well-nourished Exam: Older appearing 59-year-old black male with tracheostomy. Responsive to voice and noxious stimulus. Eye exam: PRESENT: conjunctiva pink, PERRLA. ABSENT: conjunctival injection, nystagmus, scleral icterus Mouth exam: PRESENT: neck supple, tongue midline, other - Tongue protected by moist surgical dressing. Lacerations are improving Teeth exam: PRESENT: poor dentation Neck exam: PRESENT: tracheostomy. ABSENT: carotid bruit, JVD, lymphadenopathy, tracheal deviation Respiratory exam: PRESENT: accessory muscle use, clear to auscultation king, tachypnea - While on trach collar., other - Outpatient on pressure support he had no need for accessory muscles he was unlabored.. ABSENT: unlabored Cardiovascular exam: PRESENT: RRR, +S1, +S2 Pulses: PRESENT: other - Bilateral amputation precludes dorsalis pedis pulse check Vascular exam: PRESENT: normal capillary refill. ABSENT: pallor GI/Abdominal exam: PRESENT: normal bowel sounds, soft, other - PEG tube site clean dry intact integrity has been maintained. ABSENT: ascites, distended, firm, guarding, Beverly's sign, tenderness Rectal exam: PRESENT: other - Bowel management system in place Gentrourinary exam: PRESENT: indwelling catheter Extremities exam: PRESENT: +1 edema - Upper extremities and thoracoabdominal region Musculoskeletal exam: PRESENT: deformity - Left BKA and new right BKA. Incision clean and dry dressing clean and dry Neurological exam: PRESENT: altered, other - Patient response to voice and noxious stimulus. There is an improvement in movement of legs and arms with noxious stimulus that was not seen earlier. Focused psych exam: PRESENT: catatonic Skin exam: PRESENT: dry, intact, warm. ABSENT: cyanosis, rash Tubes/Lines: PRESENT: Peg Tube, Other - Tracheostomy, PICC line right antecubital (placed 04-30-2020 Laboratory/Radiographs Laboratory Results: 05/02/20 05:08 05/02/20 05:08 05/02/20 05/02/20 05:08 05:08 WBC 11.7 H RBC 3.40 L Hgb 9.5 L Hct 28.8 L MCV 85 MCH 27.9 MCHC 32.9 RDW 15.5 H Plt Count 483 H Seg Neutrophils % 74.2 Sodium 146.1 H Potassium 3.6 Chloride 113 H Carbon Dioxide 27 Anion Gap 6 BUN 27 H Creatinine 2.75 H Est GFR ( Amer) 29 L Glucose 177 H Calcium 8.2 L Phosphorus 4.2 Magnesium 2.1 Total Bilirubin 0.5 AST 48 Alkaline Phosphatase 85 Total Protein 5.9 L Albumin 2.6 L 04/11/20 04/11/20 04/11/20 01:02 01:02 15:35 Creatine Kinase 743 H CK-MB (CK-2) 2.41 Troponin I 0.077 0.261 04/13/20 04/13/20 04/16/20 04:43 04:43 14:30 Creatine Kinase 540 H 213 H CK-MB (CK-2) Troponin I 0.126 Impressions: Foot X-Ray 04/09/20 20:34 IMPRESSION: Findings are consistent with osteomyelitis involving the lateral aspect of the fifth metatarsal base. Associated underlying pathologic fracture deformity. Superimposed foci of soft tissue gas at this site could indicate infection with a gas-forming organism. copyright 2011 [employer]- All Rights Reserved Chest CT 04/11/20 00:00 IMPRESSION: MILD CARDIOMEGALY. BILATERAL PLEURAL EFFUSIONS WITH FAINT ATELECTASIS. NO LOBAR INFILTRATES. Head CT 04/15/20 05:00 IMPRESSION: NORMAL BRAIN CT WITHOUT CONTRAST. SINUS DISEASE. EVIDENCE OF ACUTE STROKE: NO. Venous Doppler Study 04/20/20 00:00 IMPRESSION: NO EVIDENCE DVT OR SVT IN EITHER LEG. KUB X-Ray 04/23/20 00:00 IMPRESSION: NO RADIOGRAPHIC EVIDENCE FOR ACUTE ABDOMINAL DISEASE. Abdomen/Pelvis CT 04/25/20 00:00 IMPRESSION: Postprocedural changes from recent G-tube placement with small amounts of peritoneal free air. Contrast is present in the stomach and small bowel. Moderate bilateral pleural effusions and basilar atelectasis, increased compared with the prior study. PICC Line Insertion 04/30/20 00:00 IMPRESSION: SUCCESSFUL PLACEMENT OF A 5 FR DUAL LUMEN 42 CM PICC IN THE RIGHT BASILIC VEIN. Chest X-Ray 05/01/20 06:00 IMPRESSION: 1. Persistent volume loss in the left lung base which may be due to a combination of pleural fluid, atelectasis and/or inflammatory changes. 2. Suspect trace right pleural effusion. 3. Grossly stable life support lines and tubes. All labs, radiographs, diagnostic studies and EKGs were personally reviewed: Yes In addition, reports of radiographic and diagnostic studies were read: Yes Assessment and Plan - Diagnosis (1) Cardiopulmonary arrest with successful resuscitation Is this a current diagnosis for this admission?: Yes (2) Brain anoxic injury Is this a current diagnosis for this admission?: Yes (3) Coma Qualifiers: Coma depth: Lefty coma 3-8 Coma timin hours or more after hospital admission Qualified Code(s): R40.2434 - [place] coma scale score 3-8, 24 hours or more after hospital admission Is this a current diagnosis for this admission?: Yes (4) Myoclonia epileptica Is this a current diagnosis for this admission?: Yes (5) Fever Qualifiers: Fever type: unspecified Qualified Code(s): R50.9 - Fever, unspecified Is this a current diagnosis for this admission?: Yes (6) Acute on chronic renal failure Qualifiers: Acute renal failure type: with acute tubular necrosis Chronic kidney disease stage: stage 4 (severe) Qualified Code(s): N17.0 - Acute kidney failure with tubular necrosis; N18.4 - Chronic kidney disease, stage 4 (severe) Is this a current diagnosis for this admission?: Yes (7) Metabolic acidosis Is this a current diagnosis for this admission?: Yes (8) Acute respiratory failure with hypoxia and hypercapnia Is this a current diagnosis for this admission?: Yes Plan Summary: 05.02.2020: Respiratory: Patient was transitioned to trach collar but does not appear to be conditioned enough to tolerate this. We will continue to wean pressure support in an attempt to place on trach collar. Given his fever will check a chest x- ray today sure that no infection in the pulmonary system exists. Gram stain and culture have also been obtained. There is not excessive amount of secretions. The possibility of tongue abscess infection is considered but he is on antibiotics and this should be covered. Furthermore the inspection of the tongue shows an improvement overall. Infectious: Patient has fever with minimal change in his white blood cell count. Procalcitonin has been ordered but unfortunately results are not latent and not always helpful. He is on broad-spectrum antibiotics except for MRSA coverage and will have low threshold to start vancomycin in the interim. This may also represent drug fever and the possibility of discontinuing antibiotics is to be considered. We will obtain urine, sputum and blood cultures attempt to de- escalate therapy as quickly as possible. Given his debilitated state in addition to coma ongoing risk for infection will be a daily concern. Cardiac: No active hemodynamic issues. Blood pressures have improved. He does have a reduced ejection fraction approximately 4045% but this is not complicated any ongoing care. Continue supportive care Hematologic: Continue to monitor for blood loss anemia related to critical illness. White count has not dramatically change despite his fever. Endocrine: Continuing to monitor and support Renal: Improved today. Continue free water flushes which are minimal and Lasix to reduce edema. I expect that the creatinine will continue to improve with the removal of his leg. Metabolic: Continue to monitor electrolytes and pH status Alimentary: Receiving tube feeds and tolerating well. Continue to monitor response. Tube feeds have been modified to support the use of L-dopa which requires absence of nutritional elements so as to not interfere with absorption. Neurologic: Patient was started on L-dopa and Ritalin. There is improvement in his overall motor function based on noxious stimulus which was not seen prior. I am not sure this is related to the medication however is paramount that we try to discontinue meropenem and Cipro given their neurological effects. We will continue the L-dopa with tube feedings on hold from 6 AM to 10. Patient is in consideration for rehab which will be of paramount importance for his recovery Sedation: None Lines/Tubes: PICC line placed in right antecubital 04.30.2020 Other: Discussion carried out with notified her of fever and plans. Case management follow-up in the next 24 hours for potential transfer to rehab center. 05.01.2020: Respiratory: We will begin the patient on trach collar when he has recovered from surgery. Chest x-ray is clear and there should be no reason that he would not be able to be advanced to trach collar trials. We will continue to follow and monitor secretions. Infectious: Patient had right AKA which should effectively remove source of any infections at this point. Given the fact that the antibiotics may contribute to neurological dysfunction will attempt to de-escalate and discontinue in the next 24 hours. Will follow CBC and his clinical course to determine the best timing for this. We are appreciative of infectious disease input and will discuss with them further in the next 24 hours. My hope is to discontinue Cipro especially given its neurological effects. Cardiac: Blood pressure has improved. Have elected to restart Ritalin to help improve neurological function. Will need to watch for any untoward side effects related to this. Continue current therapy Hematologic: Patient did not require any blood products for surgery. We will continue to monitor his hemoglobin and hematocrit Endocrine: Continue following glucose control and parameters. Renal: Patient has CKD 4 with creatinine that is hovering between 2.5-3. He is grossly edematous which may be reflective of smoldering infection. We will continue to monitor closely. We will continue diuresis and follow creatinine response. Metabolic: Continue to monitor electrolyte profile. Alimentary: Have adjusted Nepro to be given over 20 hours to allow for appropriate absorption of Sinemet which will be restarted. Continue to monitor PEG tube site and watch for any tube feeding intolerance. Neurologic: By far the most significant body system we are concerned about. Have elected to restart medications in hopes to awaken the patient's anoxic b rain. Unable to obtain MRI to determine extent of disease however despite anatomical variations on MRI of the functional exam is still of most importance. He appears to be tracking and has sleep wake cycles. We will continue to determine best course of therapy. Given that his AKA is now complete we will move to transition him to neurological rehab facility and have asked case management for assistance. Sedation: None Lines/Tubes: Right antecubital PICC line placed Other: Met with at bedside. Discussed plan of care prognosis and next steps in this patient's management. 04.30.2020: Respiratory: Patient has poor neurological function which is resulted in the need for prolonged mechanical ventilation and resultant tracheostomy. Continue to monitor for neurological improvement but will need long-term rehab from both a respiratory and neurological component. Continue current care. Patient is unable to be weaned or liberated secondary to neurological dysfunction. Continue to monitor and control secretions Infectious: Patient has been placed on dual therapy for gram-negative Pseudomonas coverage. Given his improvement in white count we will continue this but will need to watch QTC and neurological function on Levaquin. Hopefully with the removal of the leg on the right will be able to discontinue antibiotics. Patient to have right AKA tomorrow. Have ordered blood cultures for the morning. Cardiac: Patient's blood pressure has improved. We will continue to monitor and adjust accordingly. Hematologic: Patient has anemia related to critical illness. Will type and screen and have ordered coagulation studies for potential blood loss associated with amputation. Have stopped heparin for after midnight. Endocrine: Will need long-acting insulin held after midnight with glucose follow-up. Continue to monitor accordingly and supportively. Renal: GFR has improved. Patient still is edematous and will continue to provide diuresis. IV fluids have been discontinued. Will attempt to remove James after surgery. Metabolic: Continue to monitor electrolyte status. Alimentary: Tube feeds on hold after midnight. PEG tube appears to be clean dry and intact. Neurologic: By far the biggest concern is the neurological dysfunction. He had been on L-dopa and Ritalin in hopes to improve his overall function but this does not appear to have helped and these have been discontinued. He will need l elvira-term follow-up and case management is working on placement as soon as the above-knee amputation of the right leg is complete. Had lengthy discussion with who wishes to pursue aggressive care but has a balanced and reasonable agreement that if the patient would decline then we would regroup and discuss what would be in his best interest. Sedation: No active sedation Lines/Tubes: Will attempt to place PICC line today Other: Scheduled for right above-knee amputation. Have ordered chlorhexidine bath. Type and screen as well as coagulation studies have been ordered. Heparin to be held after midnight as well as tube feedings. Critical Time Critical Time (minutes): 45 Level of Care: ICU -: 1. The care of a critical patient is a dynamic process. This note is a sales representative groceries synopsis but static in nature. The timeframe for treatments given in order is not necessarily the actual time these treatments may have been done. 2. This patient requires critical care secondary to ongoing requirements for therapy not offered or safe outside the critical care environment. Transfer to a lower level of care will result in altered life or limb morbidity and mortality. 3. Multidisciplinary rounds completed. 4. ABCDE bundle addressed.
[2020-05-02] MEDS: METOPROLOL TARTRATE 25 MG TABLET PEG SCH ×2 (11:21→21:07)
[2020-05-02] MEDS: ASPIRIN 81 MG TABLET, CHEWABLE PEG SCH (11:21)
[2020-05-02] MEDS: METHYLPHENIDATE HCL 5 MG TABLET PO SCH ×2 (11:21→12:14)
[2020-05-02] MEDS: MEROPENEM 500 MG in NORMAL SALINE 50 ML IV SCH ×3 (11:23→21:06)
[2020-05-02] MEDS: CARBIDOPA/LEVODOPA 25-100 MG TABLET PO SCH (11:24)
[2020-05-02] MEDS ORDERED: ACETAMINOPHEN SOLN 325 MG/10.15 ML UDCUP ONE ×2 (11:31→17:49)
[2020-05-02] MEDS: ACETAMINOPHEN SOLN 325 MG/10.15 ML UDCUP PEG PRN (11:32)
--- NOTE | 2020-05-02 12:18 | RADIOLOGY REPORT (SQ) ---
EXAM DESCRIPTION: CHEST SINGLE VIEW IMAGES COMPLETED DATE/TIME: 05/02/2020 11:24 am REASON FOR STUDY: Fever COMPARISON: 05/01/2020 TECHNIQUE: Single frontal radiographic view of the chest acquired. NUMBER OF VIEWS: One view. LIMITATIONS: None. FINDINGS: LUNGS AND PLEURA: No pneumothorax. Persistent left basilar airspace disease- pleural effu booker. Right lung appears clear. MEDIASTINUM AND HILAR STRUCTURES: Stable. HEART AND VASCULAR STRUCTURES: Stable. BONES: No acute findings. HARDWARE: Tracheostomy. Right PICC line, stable. OTHER: No other significant finding. IMPRESSION: NO ACUTE FINDINGS. Persistent left basilar airspace disease- pleural effusion. TECHNICAL DOCUMENTATION: JOB ID: [id number] [id number] 2010 [employer]- All Rights Reserved Reading location - IP/workstation name: [email or web address]
[2020-05-02 13:12] LABS: APPEARANCE,URINE CLOUDY; BILIRUBIN,URINE NEGATIVE (NEGATIVE); COLOR,URINE YELLOW; GLUCOSE, URINE NEGATIVE (NEGATIVE); KETONES,URINE NEGATIVE (NEGATIVE); LEUKOCYTE ESTERASE,URINE NEGATIVE (NEGATIVE); NITRITE,URINE NEGATIVE (NEGATIVE); PROTEIN,URINE 30 mg/dL (NEGATIVE); URINE SPECIFIC GRAVITY 1.012; UROBILINOGEN,URINE NEGATIVE mg/dL (<2.0)
--- NOTE | 2020-05-02 17:01 | PDOC PROGRESS REPORT ---
Subjective Progress Note for:: 05/02/20 Reason For Visit: RIGHT FOOT GAS GANGRENE,DIABETES,CKD Physical Exam Vital Signs: Temp Pulse Resp BP Pulse Ox 101.1 F H 96 13 135/67 H 99 05/02/20 12:30 05/02/20 12:00 05/02/20 16:00 05/02/20 15:50 05/02/20 16:00 Intake & Output 05/01/20 05/02/20 05/03/20 06:59 06:59 06:59 Intake Total 2800 200 50 Output Total 2170 2085 475 Balance 298 -2605 -025 Weight 85 kg 82.9 kg Results Laboratory Results: 05/02/20 05:08 05/02/20 05:08 05/02/20 05/02/20 05/02/20 05:08 05:08 12:55 WBC 11.7 H RBC 3.40 L Hgb 9.5 L Hct 28.8 L MCV 85 MCH 27.9 MCHC 32.9 RDW 15.5 H Plt Count 483 H Seg Neutrophils % 74.2 Sodium 146.1 H Potassium 3.6 Chloride 113 H Carbon Dioxide 27 Anion Gap 6 BUN 27 H Creatinine 2.75 H Est GFR ( Amer) 29 L Glucose 177 H Lactic Acid Calcium 8.2 L Phosphorus 4.2 Magnesium 2.1 Total Bilirubin 0.5 AST 48 Alkaline Phosphatase 85 Total Protein 5.9 L Albumin 2.6 L Amylase Lipase Urine Color YELLOW Urine Appearance CLOUDY Urine pH 6.0 Ur Specific [place] 1.012 Urine Protein 30 H Urine Glucose (UA) NEGATIVE Urine Ketones NEGATIVE Urine Blood MODERATE H Urine Nitrite NEGATIVE Ur Leukocyte Esterase NEGATIVE Urine WBC (Auto) 4 Urine RBC (Auto) 3 05/02/20 05/02/20 12:55 12:55 WBC RBC Hgb Hct MCV MCH MCHC RDW Plt Count Seg Neutrophils % Sodium Potassium Chloride Carbon Dioxide Anion Gap BUN Creatinine Est GFR ( Amer) Glucose Lactic Acid 0.7 Calcium Phosphorus Magnesium Total Bilirubin AST Alkaline Phosphatase Total Protein Albumin Amylase 41 Lipase 22.5 L Urine Color Urine Appearance Urine pH Ur Specific [place] Urine Protein Urine Glucose (UA) Urine Ketones Urine Blood Urine Nitrite Ur Leukocyte Esterase Urine WBC (Auto) Urine RBC (Auto) 04/11/20 04/11/20 04/11/20 01:02 01:02 15:35 Creatine Kinase 743 H CK-MB (CK-2) 2.41 Troponin I 0.077 0.261 04/13/20 04/13/20 04/16/20 04:43 04:43 14:30 Creatine Kinase 540 H 213 H CK-MB (CK-2) Troponin I 0.126 Impressions: Foot X-Ray 04/09/20 20:34 IMPRESSION: Findings are consistent with osteomyelitis involving the lateral aspect of the fifth metatarsal base. Associated underlying pathologic fracture deformity. Superimposed foci of soft tissue gas at this site could indicate infection with a gas-forming organism. copyright 2010 [employer]- All Rights Reserved Chest CT 04/11/20 00:00 IMPRESSION: MILD CARDIOMEGALY. BILATERAL PLEURAL EFFUSIONS WITH FAINT ATELECTASIS. NO LOBAR INFILTRATES. Head CT 04/15/20 05:00 IMPRESSION: NORMAL BRAIN CT WITHOUT CONTRAST. SINUS DISEASE. EVIDENCE OF ACUTE STROKE: NO. Venous Doppler Study 04/20/20 00:00 IMPRESSION: NO EVIDENCE DVT OR SVT IN EITHER LEG. KUB X-Ray 04/23/20 00:00 IMPRESSION: NO RADIOGRAPHIC EVIDENCE FOR ACUTE ABDOMINAL DISEASE. Abdomen/Pelvis CT 04/25/20 00:00 IMPRESSION: Postprocedural changes from recent G-tube placement with small amounts of peritoneal free air. Contrast is present in the stomach and small bowel. Moderate bilateral pleural effusions and basilar atelectasis, increased compared with the prior study. PICC Line Insertion 04/30/20 00:00 IMPRESSION: SUCCESSFUL PLACEMENT OF A 5 FR DUAL LUMEN 42 CM PICC IN THE RIGHT BASILIC VEIN. Chest X-Ray 05/02/20 00:00 IMPRESSION: NO ACUTE FINDINGS. Persistent left basilar airspace disease- pleural effusion. Assessment & Plan - Diagnosis (1) Diabetic infection of right foot Is this a current diagnosis for this admission?: Yes (2) Osteomyelitis Qualifiers: Osteomyelitis type: unspecified type Osteomyelitis location: foot Laterality: right Qualified Code(s): M86.9 - Osteomyelitis, unspecified Is this a current diagnosis for this admission?: Yes - Plan Summary Plan Summary: 59 y/o M s/p AKA. His dressing is in-tact. The SILVIO has serosanguinous output. Leave dressing in-place today. Will remove dressing tomorrow and evaluate the wound. Surgery will follow.
[2020-05-02] MEDS: FENTANYL CITRATE INJ/PF 100 MCG/2 ML AMPUL IV PRN (17:56)
[2020-05-02] MEDS: ATORVASTATIN CALCIUM 40 MG TABLET PO SCH (21:07)
[2020-05-03] MEDS: INSULIN REG, HUMAN 100 UNIT/ML 3 ML VIAL (PYX) SUBCUT SCH ×5 (00:08→23:53)
[2020-05-03 04:21] LABS: ABSOLUTE BASOPHILS # (AUTO) 0.1 10^3/uL (0.0-0.2); ABSOLUTE EOSINOPHILS # (AUTO) 0.4 10^3/uL (0.0-0.6); ABSOLUTE LYMPHOCYTES (AUTO) 2.1 10^3/uL (0.5-4.7); ABSOLUTE MONOCYTES (AUTO) 2.1 10^3/uL (0.1-1.4); ABSOLUTE NEUT (AUTO) 9.7 10^3/uL (1.7-8.2); BASOPHILS % (AUTO) 0.8 % (0-2); EOSINOPHILS % (AUTO) 2.6 % (0-6); HEMATOCRIT 27.1 % (37.9-51.0); LYMPHOCYTES % (AUTO) 14.4 % (13-45); MEAN CORPUSCULAR HEMOGLOBIN 28.2 pg (27.0-33.4); MEAN CORPUSCULAR HGB CONC 33.2 g/dL (32.0-36.0); MEAN CORPUSCULAR VOLUME 85 fl (80-97); MONOCYTES % (AUTO) 14.6 % (3-13); PLATELET COUNT 465 10^3/uL (150-450); RED BLOOD COUNT 3.19 10^6/uL (4.35-5.55); RED CELL DISTRIBUTION WIDTH 15.3 % (11.5-14.0); SEGMENTED NEUTROPHILS % (AUTO) 67.6 % (42-78); TOTAL CELLS COUNTED % (AUTO) 100 %; WHITE BLOOD COUNT 14.3 10^3/uL (4.0-10.5)
[2020-05-03 04:24] LABS: ARTERIAL BLOOD BASE EXCESS 3.8 mmol/L; ARTERIAL BLOOD H2CO3 0.98 mmol/L (1.05-1.35); ARTERIAL BLOOD HCO3 26.4 mmol/L (20-24); ARTERIAL BLOOD O2 SATURATION 96.9 % (94-98); ARTERIAL BLOOD PCO2 32.6 mmHg (35-45); ARTERIAL BLOOD PH 7.53 (7.35-7.45); ARTERIAL BLOOD PO2 79.3 mmHg (80-100); ARTERIAL BLOOD TOTAL CO2 27.4 mmol/L (23-27)
[2020-05-03 04:25] LABS: ARTERIAL BLOOD FIO2 30%
[2020-05-03 05:19] LABS: ALBUMIN 2.4 g/dL (3.5-5.0); ALKALINE PHOSPHATASE 93 U/L (38-126); AMYLASE 42 U/L (30-110); ANION GAP 6 (5-19); ASPARTATE AMINO TRANSFERASE 52 U/L (17-59); BILIRUBIN,TOTAL 0.4 mg/dL (0.2-1.3); BLOOD UREA NITROGEN 27 mg/dL (7-20); CALCIUM 7.8 mg/dL (8.4-10.2); CARBON DIOXIDE 27 mmol/L (22-30); CHLORIDE 114 mmol/L (98-107); GLUCOSE 178 mg/dL (75-110); POTASSIUM 3.2 mmol/L (3.6-5.0); TOTAL PROTEIN 5.8 g/dL (6.3-8.2)
[2020-05-03] MEDS: FUROSEMIDE INJ/PF 20 MG/2 ML SDV IV SCH ×2 (05:29→18:01)
[2020-05-03] MEDS: CIPROFLOXACIN HCL 500 MG TABLET PEG SCH ×2 (05:30→18:01)
[2020-05-03] MEDS: HYDRALAZINE HCL 50 MG TABLET PEG SCH ×3 (05:30→21:11)
[2020-05-03] MEDS: AMLODIPINE BESYLATE 5 MG TABLET PEG SCH ×2 (05:30→18:01)
[2020-05-03] MEDS: HEPARIN SOD (PORCINE) 5,000 UNIT/ML 1 ML VIAL SUBCUT SCH ×3 (05:30→21:10)
[2020-05-03 05:33] LABS: C-REACTIVE PROTEIN 240.7 mg/L (<10.0)
--- NOTE | 2020-05-03 06:58 | RADIOLOGY REPORT (SQ) ---
CLINICAL HISTORY: Fever COMPARISON: 05/02/2020. TECHNIQUE: XR CHEST 1 VIEW 05/03/2020 6:00 AM CDT FINDINGS: The heart is enlarged. Lungs are clear without consolidation, atelectasis, mass or edema. There is a probable small left pleural effusion. There is no pneumothorax. There are no acute osseous findings. Tracheostomy and right PICC line are unchanged. IMPRESSION: No change.
--- NOTE | 2020-05-03 07:12 | PDOC PROGRESS REPORT ---
Subjective Progress Note for:: 05/03/20 Reason For Visit: RIGHT FOOT GAS GANGRENE,DIABETES,CKD Physical Exam Vital Signs: Temp Pulse Resp BP Pulse Ox 100.8 F H 87 20 146/65 H 99 05/03/20 05:25 05/02/20 19:57 05/03/20 06:00 05/03/20 05:51 05/03/20 06:00 Intake & Output 05/02/20 05/03/20 05/04/20 06:59 06:59 06:59 Intake Total 200 225 Output Total [id number] Balance -1884 Weight 82.9 kg 80.7 kg Results Laboratory Results: 05/03/20 04:06 05/03/20 04:06 05/02/20 05/02/20 05/02/20 12:55 12:55 12:55 WBC RBC Hgb Hct MCV MCH MCHC RDW Plt Count Seg Neutrophils % Carbonic Acid HCO3/H2CO3 Ratio ABG pH ABG pCO2 ABG pO2 ABG HCO3 ABG O2 Saturation ABG Base Excess FiO2 Sodium Potassium Chloride Carbon Dioxide Anion Gap BUN Creatinine Est GFR ( Amer) Glucose Lactic Acid 0.7 Calcium Phosphorus Magnesium Total Bilirubin AST Alkaline Phosphatase C-Reactive Protein Total Protein Albumin Amylase 41 Lipase 22.5 L Urine Color YELLOW Urine Appearance CLOUDY Urine pH 6.0 Ur Specific Barton 1.012 Urine Protein 30 H Urine Glucose (UA) NEGATIVE Urine Ketones NEGATIVE Urine Blood MODERATE H Urine Nitrite NEGATIVE Ur Leukocyte Esterase NEGATIVE Urine WBC (Auto) 4 Urine RBC (Auto) 3 05/03/20 05/03/20 05/03/20 04:06 04:06 04:06 WBC 14.3 H RBC 3.19 L Hgb 9.0 L Hct 27.1 L MCV 85 MCH 28.2 MCHC 33.2 RDW 15.3 H Plt Count 465 H Seg Neutrophils % 67.6 Carbonic Acid 0.98 L HCO3/H2CO3 Ratio 26:1 ABG pH 7.53 H ABG pCO2 32.6 L ABG pO2 79.3 L ABG HCO3 26.4 H ABG O2 Saturation 96.9 ABG Base Excess 3.8 FiO2 30% Sodium 146.9 H Potassium 3.2 L Chloride 114 H Carbon Dioxide 27 Anion Gap 6 BUN 27 H Creatinine 2.87 H Est GFR ( Amer) 28 L Glucose 178 H Lactic Acid Calcium 7.8 L Phosphorus 4.0 Magnesium 2.1 Total Bilirubin 0.4 AST 52 Alkaline Phosphatase 93 C-Reactive Protein 240.7 H Total Protein 5.8 L Albumin 2.4 L Amylase 42 Lipase 30.5 Urine Color Urine Appearance Urine pH Ur Specific Barton Urine Protein Urine Glucose (UA) Urine Ketones Urine Blood Urine Nitrite Ur Leukocyte Esterase Urine WBC (Auto) Urine RBC (Auto) 04/11/20 04/11/20 04/11/20 01:02 01:02 15:35 Creatine Kinase 743 H CK-MB (CK-2) 2.41 Troponin I 0.077 0.261 04/13/20 04/13/20 04/16/20 04:43 04:43 14:30 Creatine Kinase 540 H 213 H CK-MB (CK-2) Troponin I 0.126 Impressions: Foot X-Ray 04/09/20 20:34 IMPRESSION: Findings are consistent with osteomyelitis involving the lateral aspect of the fifth metatarsal base. Associated underlying pathologic fracture deformity. Superimposed foci of soft tissue gas at this site could indicate infection with a gas-forming organism. copyright 2011 [employer]- All Rights Reserved Chest CT 04/11/20 00:00 IMPRESSION: MILD CARDIOMEGALY. BILATERAL PLEURAL EFFUSIONS WITH FAINT ATELECTASIS. NO LOBAR INFILTRATES. Head CT 04/15/20 05:00 IMPRESSION: NORMAL BRAIN CT WITHOUT CONTRAST. SINUS DISEASE. EVIDENCE OF ACUTE STROKE: NO. Venous Doppler Study 04/20/20 00:00 IMPRESSION: NO EVIDENCE DVT OR SVT IN EITHER LEG. KUB X-Ray 04/23/20 00:00 IMPRESSION: NO RADIOGRAPHIC EVIDENCE FOR ACUTE ABDOMINAL DISEASE. Abdomen/Pelvis CT 04/25/20 00:00 IMPRESSION: Postprocedural changes from recent G-tube placement with small amounts of peritoneal free air. Contrast is present in the stomach and small bowel. Moderate bilateral pleural effusions and basilar atelectasis, increased compared with the prior study. PICC Line Insertion 04/30/20 00:00 IMPRESSION: SUCCESSFUL PLACEMENT OF A 5 FR DUAL LUMEN 42 CM PICC IN THE RIGHT BASILIC VEIN. Chest X-Ray 05/03/20 06:00 IMPRESSION: No change. Assessment & Plan - Diagnosis (1) Diabetic infection of right foot Is this a current diagnosis for this admission?: Yes (2) Osteomyelitis Qualifiers: Osteomyelitis type: unspecified type Osteomyelitis location: foot Laterality: right Qualified Code(s): M86.9 - Osteomyelitis, unspecified Is this a current diagnosis for this admission?: Yes - Plan Summary Plan Summary: 59 y/o M s/p AKA. His incision is clean dry and intact. The SILVIO has serosanguinous output. Leave dressing off. Discontinue SILVIO drain.
[2020-05-03] MEDS: CARBIDOPA/LEVODOPA 25-100 MG TABLET PO SCH (08:43)
[2020-05-03] MEDS: METHYLPHENIDATE HCL 5 MG TABLET PO SCH ×2 (08:43→14:52)
[2020-05-03] MEDS: METOPROLOL TARTRATE 25 MG TABLET PEG SCH ×2 (09:45→21:10)
[2020-05-03] MEDS: MEROPENEM 500 MG in NORMAL SALINE 50 ML IV SCH ×2 (09:45→21:04)
[2020-05-03] MEDS: ASPIRIN 81 MG TABLET, CHEWABLE PEG SCH (09:45)
[2020-05-03] MEDS: SENNOSIDES/DOCUSATE 8.6-50 MG 1 EACH TABLET NG SCH (09:45)
[2020-05-03] MEDS ORDERED: VANCOMYCIN HCL 0 MG in DEXTROSE 5%-WATER 250 ML IV NR (11:45)
--- NOTE | 2020-05-03 13:42 | RADIOLOGY REPORT (SQ) ---
EXAM DESCRIPTION: CT SOFT TISSUE NECK WITHOUT IMAGES COMPLETED DATE/TIME: 05/03/2020 1:14 pm REASON FOR STUDY: soft tissue infection COMPARISON: None. TECHNIQUE: Noncontrast scanning from skull base through lung apices with review of bone, soft tissue and lung windows. Reconstructed coronal and sagittal MPR images reviewed. All images stored on PAC S. All CT scanners at this facility use dose modulation, iterative reconstruction, and/or weight based d osing when appropriate to reduce radiation dose to as low as reasonably achievable (ALARA). [facility]: Dose Right [facility]: CareDose [facility]: Dose Right [facility]: Teradose 4D [facility]: [employer] RADIATION DOSE: 21 mGy LIMITATIONS: Renal failure, no IV contrast Motion artifact FINDINGS: SKULL BASE: Inferior brain parenchyma grossly unremarkable MAJOR SALIVARY GLANDS: No solid or cystic masses. No inflammatory changes. LYMPHADENOPATHY: No adenopathy. MUCOSAL MASSES OR ASYMMETRY: No mucosal masses or asymmetry. LARYNX/CORDS: Patient has a tracheostomy tube, with the tip in the midtrachea. The larynx superior t o the tracheostomy is abnormal, glottic and immediate subglottic airway is filled with fluid/ debris. LUNG APICES: Clear. Trace bilateral pleural fluid BONES: Advanced bony erosions along the left mandible adjacent to left lower molar teeth with advance d dental caries, best shown on axial images 52-57 THYROID: Normal size. No masses. PARANASAL SINUSES: Air-fluid levels are present in the bilateral frontal sinuses, bilateral anterior ethmoid air cells, maxillary and sphenoid sinuses from pansinusitis. There is also fluid in the mast oid air cells left greater than right HARDWARE: Tracheostomy tube mid trachea. Right subclavian central line tip superior vena cava OTHER: Findings discussed with Dr. Lopez IMPRESSION: Pansinusitis Advanced left lower molar dental caries with periapical tooth root lucencies TECHNICAL DOCUMENTATION: JOB ID: [id number] Quality ID # [id number]: Final reports with documentation of one or more dose reduction techniques (e.g., Au tomated exposure control, adjustment of the mA and/or kV according to patient size, use of iterative reconstruction technique) 2010 [employer]- All Rights Reserved Reading location - IP/workstation name: [facility]
[2020-05-03] MEDS: VANCOMYCIN HCL 1,000 MG in DEXTROSE 5%-WATER 250 ML IV SCH (14:52)
--- NOTE | 2020-05-03 15:18 | PDOC CRITICAL CARE PROG REPORT ---
General Date:: 05/03/20 ICU Day:: 22 Ventilator Day:: 23 - Post trach day #9 Hospital Day:: 22 Resuscitation Status: Full Code Medical Power of Principal Process Engineer: Amber Events in the past 12 to 24 Hours:: 05.03.2020: No dramatic improvements neurologically although patient does respond to pain now in right incision of AKA when manipulated. Continues to have low-grade temperature elevation improved curves from yesterday with initiation of vancomycin. White blood cell count is elevated and so he was sent for CT of the neck and face to assure that there is no abscess given the excessive tongue biting dental disease. There is significant alveolar and dental disease but no abscess and certainly no soft tissue abscesses. Chest x- ray is essentially clear 05.02.2020: Patient is postop day #1 post right AKA. He was started back on L- dopa for neurological recovery as well as Ritalin. There has not been any notable sequelae. He still is moving head to voice and sound but no dramatic changes in the last 24 hours. Notably he has had a fever without an identifiab le source. Investigations have been started including blood cultures. He has been on Cipro and meropenem for a number of days. 05.01.2020: Patient seen after surgery. He is starting to move to voice and move eyes to voice. No seizures or abnormal movements noted. PICC line placed in right arm yesterday. 04.30.2020: Patient continues to convalesce in the ICU. He has had some secretions from his tracheostomy site but no bleeding. Blood pressures have been more stable as well as glucose on current regimen. No seizures have been noted. 04.29.2020; [place]:Did not tolerate trach collar. Doing better on PSV. Review of systems relevant to events:: 05.03.2020: Fever curve noted. Patient on trach collar trial this morning. No excessive secretions. CT scan shows significant sinusitis/disease. No exte nsive diarrhea or stool output 05.02.2020: Fever noted without hypotension. Attempt to place on trach collar was met with increased respiratory rate. No seizures, Reiger's or hemodynamic instability 05.01.2020: Patient underwent above-knee amputation this morning prior to our evaluation. No untoward sequelae occurred perioperatively and patient is convalescing in the ICU. He did receive inhaled gas and neuromuscular blockade and is recovering and spontaneously breathing. Blood pressure has improved and he has had no fevers. Creatinine is still hovering between 2.9 and 3. He was discontinued from IV fluids yesterday and maintained on Lasix. He was given normal saline through the operative case 6.: Patient had bowel movement with current regimen. Reglan has been stopped because of the concurrent use of Cipro. White count is decreased and sodium levels have improved as well. Reason for ICU Addmission:: Post respiratorycardiac arrest, Intubated - Medications: Vasopressors:: None Sedation:: None Physical Exam Vital Signs: Temp Pulse Resp BP Pulse Ox 100.8 F H 97 11 L 144/63 H 99 05/03/20 05:25 05/03/20 08:00 05/03/20 10:52 05/03/20 10:52 05/03/20 11:28 Intake & Output 05/02/20 05/03/20 05/04/20 06:59 06:59 06:59 Intake Total 200 225 Output Total 2085 2205 825 Balance -1884 -1979 Weight 82.9 kg 80.7 kg Weight/Height Weight 80.7 kg Height 6 ft General appearance: PRESENT: no acute distress, well-developed, well-nourished Exam: Older appearing 59-year-old black male no acute distress tracheostomy site clean dry and intact Eye exam: PRESENT: conjunctiva pink, PERRLA. ABSENT: conjunctival injection, nystagmus, scleral icterus Mouth exam: PRESENT: moist, other - Tongue lacerations are healing. He has extensive dental disease with partial tooth avulsion. Teeth exam: PRESENT: poor dentation Neck exam: PRESENT: tracheostomy, other - No bleeding or discharge from tracheostomy site. ABSENT: JVD, lymphadenopathy, thyromegaly, tracheal deviation Respiratory exam: PRESENT: clear to auscultation king, unlabored. ABSENT: accessory muscle use, rales, rhonchi, tachypnea, wheezes Cardiovascular exam: PRESENT: RRR, +S1, +S2 Pulses: PRESENT: other - Bilateral amputations no ability to check pulses GI/Abdominal exam: PRESENT: normal bowel sounds, soft, other - PEG tube site is clean dry and intact without erythema and no disruption of the integrity of the tube system. ABSENT: ascites, distended, guarding, mass, organolmegaly, rebound, rigid, tenderness Rectal exam: PRESENT: deferred Gentrourinary exam: PRESENT: indwelling catheter Musculoskeletal exam: PRESENT: deformity - Left AKA present prior to admission; right AKA new incision clean and dry no erythema no discharge Neurological exam: PRESENT: altered, other - Patient response to noxious stimulus by moving legs coughing and moving arms. There is subtle purposeful movement away from stimulus but is not consistent follow-up examinations. Psychiatric exam: PRESENT: flat affect Focused psych exam: ABSENT: psychomotor agitation, restlessness Skin exam: PRESENT: dry, intact, warm. ABSENT: cyanosis, rash Tubes/Lines: PRESENT: Peg Tube, Other - Tracheostomy day #9 (04.24.2020), PICC line right antecubital (placed 04-30-2020) Laboratory/Radiographs Laboratory Results: 05/03/20 04:06 05/03/20 04:06 05/03/20 05/03/20 05/03/20 04:06 04:06 04:06 WBC 14.3 H RBC 3.19 L Hgb 9.0 L Hct 27.1 L MCV 85 MCH 28.2 MCHC 33.2 RDW 15.3 H Plt Count 465 H Seg Neutrophils % 67.6 Carbonic Acid 0.98 L HCO3/H2CO3 Ratio 26:1 ABG pH 7.53 H ABG pCO2 32.6 L ABG pO2 79.3 L ABG HCO3 26.4 H ABG O2 Saturation 96.9 ABG Base Excess 3.8 FiO2 30% Sodium 146.9 H Potassium 3.2 L Chloride 114 H Carbon Dioxide 27 Anion Gap 6 BUN 27 H Creatinine 2.87 H Est GFR ( Amer) 28 L Glucose 178 H Calcium 7.8 L Phosphorus 4.0 Magnesium 2.1 Total Bilirubin 0.4 AST 52 Alkaline Phosphatase 93 C-Reactive Protein 240.7 H Total Protein 5.8 L Albumin 2.4 L Amylase 42 Lipase 30.5 04/11/20 04/11/20 04/11/20 01:02 01:02 15:35 Creatine Kinase 743 H CK-MB (CK-2) 2.41 Troponin I 0.077 0.261 04/13/20 04/13/20 04/16/20 04:43 04:43 14:30 Creatine Kinase 540 H 213 H CK-MB (CK-2) Troponin I 0.126 Impressions: Foot X-Ray 04/09/20 20:34 IMPRESSION: Findings are consistent with osteomyelitis involving the lateral aspect of the fifth metatarsal base. Associated underlying pathologic fracture deformity. Superimposed foci of soft tissue gas at this site could indicate infection with a gas-forming organism. copyright 2010 [employer]- All Rights Reserved Chest CT 04/11/20 00:00 IMPRESSION: MILD CARDIOMEGALY. BILATERAL PLEURAL EFFUSIONS WITH FAINT ATELECTASIS. NO LOBAR INFILTRATES. Head CT 04/15/20 05:00 IMPRESSION: NORMAL BRAIN CT WITHOUT CONTRAST. SINUS DISEASE. EVIDENCE OF ACUTE STROKE: NO. Venous Doppler Study 04/20/20 00:00 IMPRESSION: NO EVIDENCE DVT OR SVT IN EITHER LEG. KUB X-Ray 04/23/20 00:00 IMPRESSION: NO RADIOGRAPHIC EVIDENCE FOR ACUTE ABDOMINAL DISEASE. Abdomen/Pelvis CT 04/25/20 00:00 IMPRESSION: Postprocedural changes from recent G-tube placement with small amounts of peritoneal free air. Contrast is present in the stomach and small bowel. Moderate bilateral pleural effusions and basilar atelectasis, increased compared with the prior study. PICC Line Insertion 04/30/20 00:00 IMPRESSION: SUCCESSFUL PLACEMENT OF A 5 FR DUAL LUMEN 42 CM PICC IN THE RIGHT BASILIC VEIN. Soft Tissue Neck CT 05/03/20 00:00 IMPRESSION: Pansinusitis Advanced left lower molar dental caries with periapical tooth root lucencies Chest X-Ray 05/03/20 06:00 IMPRESSION: No change. All labs, radiographs, diagnostic studies and EKGs were personally reviewed: Yes In addition, reports of radiographic and diagnostic studies were read: Yes Assessment and Plan - Diagnosis (1) Cardiopulmonary arrest with successful resuscitation Is this a current diagnosis for this admission?: Yes (2) Brain anoxic injury Is this a current diagnosis for this admission?: Yes (3) Coma Qualifiers: Coma depth: [place] coma 3-8 Coma timin hours or more after hospital admission Qualified Code(s): R40.2434 - [place] coma scale score 3-8, 24 hours or more after hospital admission Is this a current diagnosis for this admission?: Yes (4) Myoclonia epileptica Is this a current diagnosis for this admission?: Yes (5) Fever Qualifiers: Fever type: unspecified Qualified Code(s): R50.9 - Fever, unspecified Is this a current diagnosis for this admission?: Yes (6) Acute on chronic renal failure Qualifiers: Acute renal failure type: with acute tubular necrosis Chronic kidney disease stage: stage 4 (severe) Qualified Code(s): N17.0 - Acute kidney failure with tubular necrosis; N18.4 - Chronic kidney disease, stage 4 (severe) Is this a current diagnosis for this admission?: Yes (7) Metabolic acidosis Is this a current diagnosis for this admission?: Yes (8) Acute respiratory failure with hypoxia and hypercapnia Is this a current diagnosis for this admission?: Yes (9) Acute sinusitis Qualifiers: Sinusitis location: pansinusitis Recurrence: non-recurrent Qualified Code(s): J01.40 - Acute pansinusitis, unspecified Is this a current diagnosis for this admission?: Yes Plan Summary: 05.03.2020: Respiratory: Patient has been transition to trach collar and will continue trach collar trials as long as he can tolerate this. Chest x-ray shows no consolidation or aspiration events. Continue supportive care Infectious: Patient still has elevation in his white blood cell count but decrease in his fever curve. It would be convenient to blame this on AKA how ever accuracy for diagnosis is of paramount importance. To that end a CT scan was done which did reveal sinusitis. I have placed him on intranasal steroid in hopes to decongest that area. There is no NG tube or any other obstruction except for in the anatomy of his mouth. CT scan did not show any soft tissue infections at this point. What is most concerning is the possibility of the development of Clostridium difficile infection. Having been on antibiotics in the last 10 days the concern that the fever is related to medications and/or the development of C. difficile has caused vigilant evaluation. There is no diarrhea at this point and the abdomen is benign on examination. The PEG tube site is clean dry and intact and does not appear to be any source. He is not hemodynamically unstable which raises the suspicion that this may be drug fever. I spoke with infectious disease (Dr. Moreira) appreciative of her thoughts. She would like to continue the current antibiotic regimen for at least 3 to 4 days post procedure. Notably, CRP and procalcitonin are elevated and will need to be monitoring these aspects closely. Obviously patient is at consistent and constant risk of infection given his debilitated state and coma. Cardiac: Hemodynamics have been non-labile. Continue current treatment. Watch for hypotension as a herald for sepsis Hematologic: No active processes other than leukocytosis. Continue to monitor CRP and pro calcitonin. Endocrine: Glucose has been slightly elevated however his tube feeds have been on hold as well as his insulin therapy. Will reinstitute both. Continue to monitor closely. Renal: Creatinine has stabilized and plateau will continue current therapy with diuresis and monitor his creatinine accordingly. Metabolic: Continue to monitor electrolytes and treat supportively Alimentary: Restart tube feeds and insulin therapy. Watch for diarrhea and implement early oral vancomycin increase in white count and or diarrhea Neurologic: There is not been any dramatic or significant improvement although arousals appear to be increased on current L-dopa and Ritalin therapy. Will need to monitor temperature and any evidence of infection which would worsen neurological outcome. Continue to hold tube feeds from 6 AM to 10 AM to allow for appropriate absorption of L-dopa. Sedation: No active sedation patient is comatose with eye opening reactivity and movement of arms and legs to noxious stimulus only Lines/Tubes: PICC line placed 04/30/2020 and tracheostomy/PEG tube placed 04/24/2020 Other: Plans are underway for case management to arrange for transfer to [place] [facility]. Update , Amber by phone. 05.02.2020: Respiratory: Patient was transitioned to trach collar but does not appear to be conditioned enough to tolerate this. We will continue to wean pressure support in an attempt to place on trach collar. Given his fever will check a chest x- ray today sure that no infection in the pulmonary system exists. Gram stain and culture have also been obtained. There is not excessive amount of secretions. The possibility of tongue abscess infection is considered but he is on antibio tics and this should be covered. Furthermore the inspection of the tongue shows an improvement overall. Infectious: Patient has fever with minimal change in his white blood cell count. Procalcitonin has been ordered but unfortunately results are not latent and not always helpful. He is on broad-spectrum antibiotics except for MRSA coverage and will have low threshold to start vancomycin in the interim. This may also represent drug fever and the possibility of discontinuing antibiotics is to be considered. We will obtain urine, sputum and blood cultures attempt to de- escalate therapy as quickly as possible. Given his debilitated state in addition to coma ongoing risk for infection will be a daily concern. Cardiac: No active hemodynamic issues. Blood pressures have improved. He does have a reduced ejection fraction approximately 4045% but this is not complicated any ongoing care. Continue supportive care Hematologic: Continue to monitor for blood loss anemia related to critical illness. White count has not dramatically change despite his fever. Endocrine: Continuing to monitor and support Renal: Improved today. Continue free water flushes which are minimal and Lasix to reduce edema. I expect that the creatinine will continue to improve with the removal of his leg. Metabolic: Continue to monitor electrolytes and pH status Alimentary: Receiving tube feeds and tolerating well. Continue to monitor response. Tube feeds have been modified to support the use of L-dopa which requires absence of nutritional elements so as to not interfere with absorption. Neurologic: Patient was started on L-dopa and Ritalin. There is improvement in his overall motor function based on noxious stimulus which was not seen prior. I am not sure this is related to the medication however is paramount that we try to discontinue meropenem and Cipro given their neurological effects. We will continue the L-dopa with tube feedings on hold from 6 AM to 10. Patient is in consideration for rehab which will be of paramount importance for his recovery Sedation: None Lines/Tubes: PICC line placed in right antecubital 04.30.2020 Other: Discussion carried out with notified her of fever and plans. Case management follow-up in the next 24 hours for potential transfer to rehab center. 05.01.2020: Respiratory: We will begin the patient on trach collar when he has recovered from surgery. Chest x-ray is clear and there should be no reason that he would not be able to be advanced to trach collar trials. We will continue to follow and monitor secretions. Infectious: Patient had right AKA which should effectively remove source of any infections at this point. Given the fact that the antibiotics may contribute to neurological dysfunction will attempt to de-escalate and discontinue in the next 24 hours. Will follow CBC and his clinical course to determine the best timing for this. We are appreciative of infectious disease input and will discuss with them further in the next 24 hours. My hope is to discontinue Cipro especially given its neurological effects. Cardiac: Blood pressure has improved. Have elected to restart Ritalin to help improve neurological function. Will need to watch for any untoward side effects related to this. Continue current therapy Hematologic: Patient did not require any blood products for surgery. We will continue to monitor his hemoglobin and hematocrit Endocrine: Continue following glucose control and parameters. Renal: Patient has CKD 4 with creatinine that is hovering between 2.5-3. He is grossly edematous which may be reflective of smoldering infection. We will continue to monitor closely. We will continue diuresis and follow creatinine response. Metabolic: Continue to monitor electrolyte profile. Alimentary: Have adjusted Nepro to be given over 20 hours to allow for appropriate absorption of Sinemet which will be restarted. Continue to monitor PEG tube site and watch for any tube feeding intolerance. Neurologic: By far the most significant body system we are concerned about. Have elected to restart medications in hopes to awaken the patient's anoxic brain. Unable to obtain MRI to determine extent of disease however despite anatomical variations on MRI of the functional exam is still of most importance. He appears to be tracking and has sleep wake cycles. We will continue to determine best course of therapy. Given that his AKA is now complete we will move to transition him to neurological rehab facility and have asked case management for assistance. Sedation: None Lines/Tubes: Right antecubital PICC line placed Other: Met with at bedside. Discussed plan of care prognosis and next steps in this patient's management. 04.30.2020: Respiratory: Patient has poor neurological function which is resulted in the need for prolonged mechanical ventilation and resultant tracheostomy. Continue to monitor for neurological improvement but will need long-term rehab from both a respiratory and neurological component. Continue current care. Patient is unable to be weaned or liberated secondary to neurological dysfunction. Continue to monitor and control secretions Infectious: Patient has been placed on dual therapy for gram-negative Pseudomonas coverage. Given his improvement in white count we will continue this but will need to watch QTC and neurological function on Levaquin. Hopefu lly with the removal of the leg on the right will be able to discontinue antibiotics. Patient to have right AKA tomorrow. Have ordered blood cultures for the morning. Cardiac: Patient's blood pressure has improved. We will continue to monitor and adjust accordingly. Hematologic: Patient has anemia related to critical illness. Will type and screen and have ordered coagulation studies for potential blood loss associated with amputation. Have stopped heparin for after midnight. Endocrine: Will need long-acting insulin held after midnight with glucose follow-up. Continue to monitor accordingly and supportively. Renal: GFR has improved. Patient still is edematous and will continue to p rovide diuresis. IV fluids have been discontinued. Will attempt to remove James after surgery. Metabolic: Continue to monitor electrolyte status. Alimentary: Tube feeds on hold after midnight. PEG tube appears to be clean dry and intact. Neurologic: By far the biggest concern is the neurological dysfunction. He had been on L-dopa and Ritalin in hopes to improve his overall function but this does not appear to have helped and these have been discontinued. 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 Had lengthy discussion with who wishes to pursue aggressive care but has a balanced and reasonable agreement that if the patient would decline then we would regroup and discuss what would be in his best interest. Sedation: No active sedation Lines/Tubes: Will attempt to place PICC line today Other: Scheduled for right above-knee amputation. Have ordered chlorhexidine bath. Type and screen as well as coagulation studies have been ordered. Heparin to be held after midnight as well as tube feedings.. Critical Time Critical Time (minutes): 48 Level of Care: ICU Anticipated discharge: Acute Rehab Within: within 36 hours -: 1. The care of a critical patient is a dynamic process. This note is a risk control field representative synopsis but static in nature. The timeframe for treatments given in order is not necessarily the actual time these treatments may have been done. 2. This patient requires critical care secondary to ongoing requirements for therapy not offered or safe outside the critical care environment. Transfer to a lower level of care will result in altered life or limb morbidity and mortality. 3. Multidisciplinary rounds completed. 4. ABCDE bundle addressed.
[2020-05-03] MEDS: FLUTICASONE NASAL SPRAY 50 MCG/SPRY 120 SPRAY/16 GM NASL SCH ×2 (18:02→21:04)
--- NOTE | 2020-05-03 18:59 | PDOC PROGRESS REPORT ---
Subjective Progress Note for:: 05/03/20 Subjective:: Patient still intubated and does not appear to have any neurologic improvements. He does respond to painful stimuli. On May 01 he underwent right above-knee amputation for diabetic foot. Patient remains to be nonoliguric passing around 1 to 2 L of urine daily. Reason For Visit: RIGHT FOOT GAS GANGRENE,DIABETES,CKD Physical Exam Vital Signs: Temp Pulse Resp BP Pulse Ox 100.8 F H 97 20 146/65 H 100 05/03/20 05:25 05/03/20 08:00 05/03/20 06:00 05/03/20 05:51 05/03/20 08:00 Intake & Output 05/02/20 05/03/20 05/04/20 06:59 06:59 06:59 Intake Total 200 225 Output Total 2085 2205 275 Balance -5 -1980 -275 Weight 82.9 kg 80.7 kg Exam: General appearance: PRESENT: Intubated and not on any sedation, with some response to painful stimuli Head exam: PRESENT: atraumatic, normocephalic Eye exam: PRESENT: conjunctiva pale, PERRLA. ABSENT: scleral icterus Neck exam: ABSENT: JVD Respiratory exam: PRESENT: Normal breath sounds. ABSENT: crackles, rales, rhonchi, unlabored, wheezes Cardiovascular exam: PRESENT: Regular rate rhythm -+S1, +S2. ABSENT: diastolic murmur, systolic murmur GI/Abdominal exam: PRESENT: normal bowel sounds, soft. ABSENT: guarding, mass, tenderness Extremities exam: ABSENT: No edema, right AKA surgical site appears to be very clean, left AKA Neurological exam: PRESENT: No other neurologic response aside from some response to painful stimuli Skin exam: PRESENT: dry, warm, Cardiovascular exam: PRESENT: +S1, +S2 GI/Abdominal exam: PRESENT: distended, soft. ABSENT: firm Results Laboratory Results: 05/03/20 04:06 05/03/20 04:06 05/02/20 05/02/20 05/02/20 12:55 12:55 12:55 WBC RBC Hgb Hct MCV MCH MCHC RDW Plt Count Seg Neutrophils % Carbonic Acid HCO3/H2CO3 Ratio ABG pH ABG pCO2 ABG pO2 ABG HCO3 ABG O2 Saturation ABG Base Excess FiO2 Sodium Potassium Chloride Carbon Dioxide Anion Gap BUN Creatinine Est GFR ( Amer) Glucose Lactic Acid 0.7 Calcium Phosphorus Magnesium Total Bilirubin AST Alkaline Phosphatase C-Reactive Protein Total Protein Albumin Amylase 41 Lipase 22.5 L Urine Color YELLOW Urine Appearance CLOUDY Urine pH 6.0 Ur Specific [place] 1.012 Urine Protein 30 H Urine Glucose (UA) NEGATIVE Urine Ketones NEGATIVE Urine Blood MODERATE H Urine Nitrite NEGATIVE Ur Leukocyte Esterase NEGATIVE Urine WBC (Auto) 4 Urine RBC (Auto) 3 05/03/20 05/03/20 05/03/20 04:06 04:06 04:06 WBC 14.3 H RBC 3.19 L Hgb 9.0 L Hct 27.1 L MCV 85 MCH 28.2 MCHC 33.2 RDW 15.3 H Plt Count 465 H Seg Neutrophils % 67.6 Carbonic Acid 0.98 L HCO3/H2CO3 Ratio 26:1 ABG pH 7.53 H ABG pCO2 32.6 L ABG pO2 79.3 L ABG HCO3 26.4 H ABG O2 Saturation 96.9 ABG Base Excess 3.8 FiO2 30% Sodium 146.9 H Potassium 3.2 L Chloride 114 H Carbon Dioxide 27 Anion Gap 6 BUN 27 H Creatinine 2.87 H Est GFR ( Amer) 28 L Glucose 178 H Lactic Acid Calcium 7.8 L Phosphorus 4.0 Magnesium 2.1 Total Bilirubin 0.4 AST 52 Alkaline Phosphatase 93 C-Reactive Protein 240.7 H Total Protein 5.8 L Albumin 2.4 L Amylase 42 Lipase 30.5 Urine Color Urine Appearance Urine pH Ur Specific [place] Urine Protein Urine Glucose (UA) Urine Ketones Urine Blood Urine Nitrite Ur Leukocyte Esterase Urine WBC (Auto) Urine RBC (Auto) 04/11/20 04/11/20 04/11/20 01:02 01:02 15:35 Creatine Kinase 743 H CK-MB (CK-2) 2.41 Troponin I 0.077 0.261 04/13/20 04/13/20 04/16/20 04:43 04:43 14:30 Creatine Kinase 540 H 213 H CK-MB (CK-2) Troponin I 0.126 Impressions: Foot X-Ray 04/09/20 20:34 IMPRESSION: Findings are consistent with osteomyelitis involving the lateral aspect of the fifth metatarsal base. Associated underlying pathologic fracture deformity. Superimposed foci of soft tissue gas at this site could indicate infection with a gas-forming organism. copyright 2011 [employer]- All Rights Reserved Chest CT 04/11/20 00:00 IMPRESSION: MILD CARDIOMEGALY. BILATERAL PLEURAL EFFUSIONS WITH FAINT ATELECTASIS. NO LOBAR INFILTRATES. Head CT 04/15/20 05:00 IMPRESSION: NORMAL BRAIN CT WITHOUT CONTRAST. SINUS DISEASE. EVIDENCE OF ACUTE STROKE: NO. Venous Doppler Study 04/20/20 00:00 IMPRESSION: NO EVIDENCE DVT OR SVT IN EITHER LEG. KUB X-Ray 04/23/20 00:00 IMPRESSION: NO RADIOGRAPHIC EVIDENCE FOR ACUTE ABDOMINAL DISEASE. Abdomen/Pelvis CT 04/25/20 00:00 IMPRESSION: Postprocedural changes from recent G-tube placement with small amounts of peritoneal free air. Contrast is present in the stomach and small bowel. Moderate bilateral pleural effusions and basilar atelectasis, increased compared with the prior study. PICC Line Insertion 04/30/20 00:00 IMPRESSION: SUCCESSFUL PLACEMENT OF A 5 FR DUAL LUMEN 42 CM PICC IN THE RIGHT BASILIC VEIN. Chest X-Ray 05/03/20 06:00 IMPRESSION: No change. Assessment & Plan - Diagnosis (1) Acute on chronic renal failure Qualifiers: Acute renal failure type: with acute tubular necrosis Chronic kidney disease stage: stage 4 (severe) Qualified Code(s): N17.0 - Acute kidney failure with tubular necrosis; N18.4 - Chronic kidney disease, stage 4 (severe) Is this a current diagnosis for this admission?: Yes Plan: Secondary to ATN due to cardiac arrest. Patient continues to have a decent amount of urine output with continuously improving kidney function. No need of renal replacement therapy. Continue to monitor kidney function and electrolytes. (2) Acute respiratory failure with hypoxia and hypercapnia Is this a current diagnosis for this admission?: Yes Plan: Per substance abuse counselor. (3) Brain anoxic injury Is this a current diagnosis for this admission?: Yes Plan: No neurological improvement. (4) Cardiopulmonary arrest with successful resuscitation Is this a current diagnosis for this admission?: Yes (5) Anemia Is this a current diagnosis for this admission?: Yes (6) Hypertension Is this a current diagnosis for this admission?: Yes Plan: Controlled. (7) Hypokalemia Is this a current diagnosis for this admission?: Yes Plan: Potassium replacement as necessary. (8) Diabetic infection of right foot Is this a current diagnosis for this admission?: Yes Plan: Status post right AKA, May 01. - Time Time with patient: 15-25 minutes
[2020-05-03] MEDS: ATORVASTATIN CALCIUM 40 MG TABLET PO SCH (21:10)
[2020-05-03] MEDS ORDERED: ACETAMINOPHEN 325 MG TABLET ONE (23:51)
[2020-05-03] MEDS: ACETAMINOPHEN 325 MG TABLET PO PRN (23:51)
[2020-05-04] MEDS: FUROSEMIDE INJ/PF 20 MG/2 ML SDV IV SCH ×2 (05:07→17:08)
[2020-05-04] MEDS: HEPARIN SOD (PORCINE) 5,000 UNIT/ML 1 ML VIAL SUBCUT SCH ×3 (05:07→21:15)
[2020-05-04] MEDS: CIPROFLOXACIN HCL 500 MG TABLET PEG SCH ×2 (05:08→17:08)
[2020-05-04] MEDS: HYDRALAZINE HCL 50 MG TABLET PEG SCH ×3 (05:08→21:17)
[2020-05-04] MEDS: AMLODIPINE BESYLATE 5 MG TABLET PEG SCH ×2 (05:08→17:08)
[2020-05-04] MEDS: INSULIN REG, HUMAN 100 UNIT/ML 3 ML VIAL (PYX) SUBCUT SCH ×3 (05:09→17:08)
--- NOTE | 2020-05-04 10:02 | PDOC PROGRESS REPORT ---
Subjective Progress Note for:: 05/04/20 Subjective:: No acute distress Reason For Visit: RIGHT FOOT GAS GANGRENE,DIABETES,CKD Physical Exam Vital Signs: Temp Pulse Resp BP Pulse Ox 100.0 F 90 15 126/62 H 99 05/04/20 05:51 05/03/20 20:00 05/04/20 06:00 05/04/20 05:52 05/04/20 09:01 Intake & Output 05/03/20 05/04/20 05/05/20 06:59 06:59 06:59 Intake Total 225 495 Output Total 2205 2400 Balance -1979 -1904 Weight 80.7 kg 76.9 kg Extremities exam: PRESENT: other - AKA stump wound is clean dry and intact with no erythema no drainage. Ruth intact. Results Laboratory Results: 05/03/20 04:06 05/03/20 04:06 05/04/20 04:20 C-Reactive Protein 251.9 H 04/11/20 04/11/20 04/11/20 01:02 01:02 15:35 Creatine Kinase 743 H CK-MB (CK-2) 2.41 Troponin I 0.077 0.261 04/13/20 04/13/20 04/16/20 04:43 04:43 14:30 Creatine Kinase 540 H 213 H CK-MB (CK-2) Troponin I 0.126 Impressions: Foot X-Ray 04/09/20 20:34 IMPRESSION: Findings are consistent with osteomyelitis involving the lateral aspect of the fifth metatarsal base. Associated underlying pathologic fracture deformity. Superimposed foci of soft tissue gas at this site could indicate infection with a gas-forming organism. copyright 2010 [employer]- All Rights Reserved Chest CT 04/11/20 00:00 IMPRESSION: MILD CARDIOMEGALY. BILATERAL PLEURAL EFFUSIONS WITH FAINT ATELECTASIS. NO LOBAR INFILTRATES. Head CT 04/15/20 05:00 IMPRESSION: NORMAL BRAIN CT WITHOUT CONTRAST. SINUS DISEASE. EVIDENCE OF ACUTE STROKE: NO. Venous Doppler Study 04/20/20 00:00 IMPRESSION: NO EVIDENCE DVT OR SVT IN EITHER LEG. KUB X-Ray 04/23/20 00:00 IMPRESSION: NO RADIOGRAPHIC EVIDENCE FOR ACUTE ABDOMINAL DISEASE. Abdomen/Pelvis CT 04/25/20 00:00 IMPRESSION: Postprocedural changes from recent G-tube placement with small amounts of peritoneal free air. Contrast is present in the stomach and small bowel. Moderate bilateral pleural effusions and basilar atelectasis, increased compared with the prior study. PICC Line Insertion 04/30/20 00:00 IMPRESSION: SUCCESSFUL PLACEMENT OF A 5 FR DUAL LUMEN 42 CM PICC IN THE RIGHT BASILIC VEIN. Soft Tissue Neck CT 05/03/20 00:00 IMPRESSION: Pansinusitis Advanced left lower molar dental caries with periapical tooth root lucencies Chest X-Ray 05/03/20 06:00 IMPRESSION: No change. Assessment & Plan - Diagnosis (1) Osteomyelitis of ankle or foot, right, acute Is this a current diagnosis for this admission?: Yes Plan: Status post right [id number] amputation. The wound looks very good.
[2020-05-04] MEDS: CARBIDOPA/LEVODOPA 25-100 MG TABLET PO SCH (11:50)
[2020-05-04] MEDS: ACETAMINOPHEN 325 MG TABLET PO PRN (11:50)
[2020-05-04] MEDS: METOPROLOL TARTRATE 25 MG TABLET PEG SCH ×2 (11:51→21:15)
[2020-05-04] MEDS: ASPIRIN 81 MG TABLET, CHEWABLE PEG SCH (11:51)
[2020-05-04] MEDS: SENNOSIDES/DOCUSATE 8.6-50 MG 1 EACH TABLET NG SCH (11:51)
[2020-05-04] MEDS: FLUTICASONE NASAL SPRAY 50 MCG/SPRY 120 SPRAY/16 GM NASL SCH ×2 (11:52→21:18)
[2020-05-04] MEDS: MEROPENEM 500 MG in NORMAL SALINE 50 ML IV SCH ×2 (11:52→21:15)
[2020-05-04] MEDS: METHYLPHENIDATE HCL 5 MG TABLET PO SCH ×2 (12:02)
[2020-05-04] MEDS: VANCOMYCIN HCL 1,000 MG in DEXTROSE 5%-WATER 250 ML IV SCH (14:38)
--- NOTE | 2020-05-04 18:07 | PDOC CRITICAL CARE PROG REPORT ---
General Date:: 05/04/20 ICU Day:: 23 Ventilator Day:: 23 Hospital Day:: 24 Resuscitation Status: Full Code Medical Power of Supervisor Cooler Service: , Amber Events in the past 12 to 24 Hours:: 05.04.2020: Patient continues to convalesce in the ICU without any significant improvement. Ventilator requirements have lessened and he is on less pressure support. Fever curve has improved. 05.03.2020: No dramatic improvements neurologically although patient does respond to pain now in right incision of AKA when manipulated. Continues to have low-grade temperature elevation improved curves from yesterday with initiation of vancomycin. White blood cell count is elevated and so he was sent for CT of the neck and face to assure that there is no abscess given the excessive tongue biting dental disease. There is significant alveolar and dental disease but no abscess and certainly no soft tissue abscesses. Chest x- ray is essentially clear 05.02.2020: Patient is postop day #1 post right AKA. He was started back on L- dopa for neurological recovery as well as Ritalin. There has not been any notable sequelae. He still is moving head to voice and sound but no dramatic changes in the last 24 hours. Notably he has had a fever without an identifiable source. Investigations have been started including blood cultures. He has been on Cipro and meropenem for a number of days. 05.01.2020: Patient seen after surgery. He is starting to move to voice and move eyes to voice. No seizures or abnormal movements noted. PICC line placed in right arm yesterday. 04.30.2020: Patient continues to convalesce in the ICU. He has had some secretions from his tracheostomy site but no bleeding. Blood pressures have been more stable as well as glucose on current regimen. No seizures have been noted. 04.29.2020; [place]:Did not tolerate trach collar. Doing better on PSV. Review of systems relevant to events:: 05.04.2020: No excessive diarrhea. No tube feeding intolerance. 05.03.2020: Fever curve noted. Patient on trach collar trial this morning. No excessive secretions. CT scan shows significant sinusitis/disease. No extensive diarrhea or stool output 05.02.2020: Fever noted without hypotension. Attempt to place on trach collar was met with increased respiratory rate. No seizures, Reiger's or hemodynamic instability 05.01.2020: Patient underwent above-knee amputation this morning prior to our evaluation. No untoward sequelae occurred perioperatively and patient is convalescing in the ICU. He did receive inhaled gas and neuromuscular blockade and is recovering and spontaneously breathing. Blood pressure has improved and he has had no fevers. Creatinine is still hovering between 2.9 and 3. He was discontinued from IV fluids yesterday and maintained on Lasix. He was given normal saline through the operative case 6: Patient had bowel movement with current regimen. Reglan has been stopped because of the concurrent use of Cipro. White count is decreased and sodium levels have improved as well. Reason for ICU Addmission:: Post respiratorycardiac arrest, Intubated - Medications: Vasopressors:: None Sedation:: None Physical Exam Vital Signs: Temp Pulse Resp BP Pulse Ox 100.0 F 88 13 133/70 H 100 05/04/20 05:51 05/04/20 08:00 05/04/20 15:00 05/04/20 14:52 05/04/20 15:52 Intake & Output 05/03/20 05/04/20 05/05/20 06:59 06:59 06:59 Intake Total 225 545 Output Total 2205 2400 725 Balance -1979 -1855 -725 Weight 80.7 kg 76.9 kg Weight/Height Weight 76.9 kg Height 6 ft General appearance: PRESENT: no acute distress, well-developed, well-nourished Exam: 59-year-old black male appears older than stated age. Post tracheostomy no acute distress Eye exam: PRESENT: conjunctiva pink, PERRLA. ABSENT: nystagmus, scleral icterus Mouth exam: PRESENT: moist, tongue midline, other - Tongue laceration is improved. There is loss of significant teeth and alveolar ridge changes lower. No abscess seen Neck exam: PRESENT: tracheostomy - Clean dry and intact. ABSENT: carotid bruit, JVD, lymphadenopathy Respiratory exam: PRESENT: clear to auscultation king, unlabored, other - Evaluation of ventilator. Patient on pressure support of 10 PEEP of 5. ABSENT: accessory muscle use, rales, rhonchi, tachypnea, wheezes Laboratory/Radiographs Laboratory Results: 05/03/20 04:06 05/03/20 04:06 05/04/20 04:20 C-Reactive Protein 251.9 H 04/11/20 04/11/20 04/11/20 01:02 01:02 15:35 Creatine Kinase 743 H CK-MB (CK-2) 2.41 Troponin I 0.077 0.261 04/13/20 04/13/20 04/16/20 04:43 04:43 14:30 Creatine Kinase 540 H 213 H CK-MB (CK-2) Troponin I 0.126 Impressions: Foot X-Ray 04/09/20 20:34 IMPRESSION: Findings are consistent with osteomyelitis involving the lateral aspect of the fifth metatarsal base. Associated underlying pathologic fracture deformity. Superimposed foci of soft tissue gas at this site could indicate infection with a gas-forming organism. copyright 2010 [employer]- All Rights Reserved Chest CT 04/11/20 00:00 IMPRESSION: MILD CARDIOMEGALY. BILATERAL PLEURAL EFFUSIONS WITH FAINT ATELECTASIS. NO LOBAR INFILTRATES. Head CT 04/15/20 05:00 IMPRESSION: NORMAL BRAIN CT WITHOUT CONTRAST. SINUS DISEASE. EVIDENCE OF ACUTE STROKE: NO. Venous Doppler Study 04/20/20 00:00 IMPRESSION: NO EVIDENCE DVT OR SVT IN EITHER LEG. KUB X-Ray 04/23/20 00:00 IMPRESSION: NO RADIOGRAPHIC EVIDENCE FOR ACUTE ABDOMINAL DISEASE. Abdomen/Pelvis CT 04/25/20 00:00 IMPRESSION: Postprocedural changes from recent G-tube placement with small amounts of peritoneal free air. Contrast is present in the stomach and small bowel. Moderate bilateral pleural effusions and basilar atelectasis, increased compared with the prior study. PICC Line Insertion 04/30/20 00:00 IMPRESSION: SUCCESSFUL PLACEMENT OF A 5 FR DUAL LUMEN 42 CM PICC IN THE RIGHT BASILIC VEIN. Soft Tissue Neck CT 05/03/20 00:00 IMPRESSION: Pansinusitis Advanced left lower molar dental caries with periapical tooth root lucencies Chest X-Ray 05/03/20 06:00 IMPRESSION: No change. All labs, radiographs, diagnostic studies and EKGs were personally reviewed: Yes In addition, reports of radiographic and diagnostic studies were read: Yes Assessment and Plan - Diagnosis (1) Cardiopulmonary arrest with successful resuscitation Is this a current diagnosis for this admission?: Yes (2) Brain anoxic injury Is this a current diagnosis for this admission?: Yes (3) Coma Qualifiers: Coma depth: [place] coma 3-8 Coma timin hours or more after hospital admission Qualified Code(s): R40.2434 - [place] coma scale score 3-8, 24 hours or more after hospital admission Is this a current diagnosis for this admission?: Yes (4) Myoclonia epileptica Is this a current diagnosis for this admission?: Yes (5) Fever Qualifiers: Fever type: unspecified Qualified Code(s): R50.9 - Fever, unspecified Is this a current diagnosis for this admission?: Yes (6) Acute on chronic renal failure Qualifiers: Acute renal failure type: with acute tubular necrosis Chronic kidney disease stage: stage 4 (severe) Qualified Code(s): N17.0 - Acute kidney failure with tubular necrosis; N18.4 - Chronic kidney disease, stage 4 (severe) Is this a current diagnosis for this admission?: Yes (7) Metabolic acidosis Is this a current diagnosis for this admission?: Yes (8) Acute respiratory failure with hypoxia and hypercapnia Is this a current diagnosis for this admission?: Yes (9) Acute sinusitis Qualifiers: Sinusitis location: pansinusitis Recurrence: non-recurrent Qualified Code(s): J01.40 - Acute pansinusitis, unspecified Is this a current diagnosis for this admission?: Yes Plan Summary: 05.04.2020: We will continue to follow patient in the ICU as we transition him to LTAC care. His fever curve has improved however CRP is still elevated. Given the situation I have added an antifungal until we can be assured that there is no fungal el ements. I am unable to determine any source of infection and his white count and temperature elevation as well as CRP may be indicative of an occult fungal infection however malignancy is also a consideration. We are awaiting [facility] and [facility] We will continue to follow white blood cell count, ventilatory weaning and labs. Continue diuresis as long as creatinine has improved. Will update family today. Continue Sinemet and Ritalin for neurological recovery. Will need to watch for fever related to these. Continue nutrition at 45 cc an hour to be held 0600 to 1000 daily for proper absorption of Sinemet 05.03.2020: Respiratory: Patient has been transition to trach collar and will continue trach collar trials as long as he can tolerate this. Chest x-ray shows no consolidation or aspiration events. Continue supportive care Infectious: Patient still has elevation in his white blood cell count but decrease in his fever curve. It would be convenient to blame this on AKA however accuracy for diagnosis is of paramount importance. To that end a CT scan was done which did reveal sinusitis. I have placed him on intranasal steroid in hopes to decongest that area. There is no NG tube or any other obstruction except for in the anatomy of his mouth. CT scan did not show any soft tissue infections at this point. What is most concerning is the possibility of the development of Clostridium difficile infection. Having been on antibiotics in the last 10 days the concern that the fever is related to medications and/or the development of C. difficile has caused vigilant evaluation. There is no diarrhea at this point and the abdomen is benign on examination. The PEG tube site is clean dry and intact and does not appear to be any source. He is not hemodynamically unstable which raises the suspicion that this may be drug fever. I spoke with infectious disease (Dr. Moreira) appreciative of her thoughts. She would like to continue the current antibiotic regimen for at least 3 to 4 days post procedure. Notably, CRP and procalcitonin are elevated and will need to be monitoring these aspects closely. Obviously patient is at consistent and constant risk of infection given his debilitated state and coma. Cardiac: Hemodynamics have been non-labile. Continue current treatment. Watch for hypotension as a herald for sepsis Hematologic: No active processes other than leukocytosis. Continue to monitor CRP and pro calcitonin. Endocrine: Glucose has been slightly elevated however his tube feeds have been on hold as well as his insulin therapy. Will reinstitute both. Continue to monitor closely. Renal: Creatinine has stabilized and plateau will continue current therapy with diuresis and monitor his creatinine accordingly. Metabolic: Continue to monitor electrolytes and treat supportively Alimentary: Restart tube feeds and insulin therapy. Watch for diarrhea and implement early oral vancomycin increase in white count and or diarrhea Neurologic: There is not been any dramatic or significant improvement although arousals appear to be increased on current L-dopa and Ritalin therapy. Will need to monitor temperature and any evidence of infection which would worsen neurological outcome. Continue to hold tube feeds from 6 AM to 10 AM to allow for appropriate absorption of L-dopa. Sedation: No active sedation patient is comatose with eye opening reactivity and movement of arms and legs to noxious stimulus only Lines/Tubes: PICC line placed 04/30/2020 and tracheostomy/PEG tube placed 04/24/2020 Other: Plans are underway for case management to arrange for transfer to [facility]. Update , Amber by phone. 05.02.2020: Respiratory: Patient was transitioned to trach collar but does not appear to be conditioned enough to tolerate this. We will continue to wean pressure support in an attempt to place on trach collar. Given his fever will check a chest x- ray today sure that no infection in the pulmonary system exists. Gram stain and culture have also been obtained. There is not excessive amount of secretions. The possibility of tongue abscess infection is considered but he is on antibiotics and this should be covered. Furthermore the inspection of the tong ue shows an improvement overall. Infectious: Patient has fever with minimal change in his white blood cell count. Procalcitonin has been ordered but unfortunately results are not latent and not always helpful. He is on broad-spectrum antibiotics except for MRSA coverage and will have low threshold to start vancomycin in the interim. This may also represent drug fever and the possibility of discontinuing antibiotics is to be considered. We will obtain urine, sputum and blood cultures attempt to de- escalate therapy as quickly as possible. Given his debilitated state in addition to coma ongoing risk for infection will be a daily concern. Cardiac: No active hemodynamic issues. Blood pressures have improved. He does have a reduced ejection fraction approximately 4045% but this is not complicated any ongoing care. Continue supportive care Hematologic: Continue to monitor for blood loss anemia related to critical illness. White count has not dramatically change despite his fever. Endocrine: Continuing to monitor and support Renal: Improved today. Continue free water flushes which are minimal and Lasix to reduce edema. I expect that the creatinine will continue to improve with the removal of his leg. Metabolic: Continue to monitor electrolytes and pH status Alimentary: Receiving tube feeds and tolerating well. Continue to monitor response. Tube feeds have been modified to support the use of L-dopa which requires absence of nutritional elements so as to not interfere with absorption. Neurologic: Patient was started on L-dopa and Ritalin. There is improvement in his overall motor function based on noxious stimulus which was not seen prior. I am not sure this is related to the medication however is paramount that we try to discontinue meropenem and Cipro given their neurological effects. We will continue the L-dopa with tube feedings on hold from 6 AM to 10. Patient is in consideration for rehab which will be of paramount importance for his recovery Sedation: None Lines/Tubes: PICC line placed in right antecubital 04.30.2020 Other: Discussion carried out with notified her of fever and plans. Case management follow-up in the next 24 hours for potential transfer to rehab center. 05.01.2020: Respiratory: We will begin the patient on trach collar when he has recovered from surgery. Chest x-ray is clear and there should be no reason that he would not be able to be advanced to trach collar trials. We will continue to follow and monitor secretions. Infectious: Patient had right AKA which should effectively remove source of any infections at this point. Given the fact that the antibiotics may contribute to neurological dysfunction will attempt to de-escalate and discontinue in the next 24 hours. Will follow CBC and his clinical course to determine the best timing for this. We are appreciative of infectious disease input and will discuss with them further in the next 24 hours. My hope is to discontinue Cipro especially given its neurological effects. Cardiac: Blood pressure has improved. Have elected to restart Ritalin to help improve neurological function. Will need to watch for any untoward side effects related to this. Continue current therapy Hematologic: Patient did not require any blood products for surgery. We will continue to monitor his hemoglobin and hematocrit Endocrine: Continue following glucose control and parameters. Renal: Patient has CKD 4 with creatinine that is hovering between 2.5-3. He is grossly edematous which may be reflective of smoldering infection. We will continue to monitor closely. We will continue diuresis and follow creatinine response. Metabolic: Continue to monitor electrolyte profile. Alimentary: Have adjusted Nepro to be given over 20 hours to allow for appropriate absorption of Sinemet which will be restarted. Continue to monitor PEG tube site and watch for any tube feeding intolerance. Neurologic: By far the most significant body system we are concerned about. Have elected to restart medications in hopes to awaken the patient's anoxic brain. Unable to obtain MRI to determine extent of disease however despite anatomical variations on MRI of the functional exam is still of most importance. He appears to be tracking and has sleep wake cycles. We will continue to determine best course of therapy. Given that his AKA is now complete we will move to transition him to neurological rehab facility and have asked case management for assistance. Sedation: None Lines/Tubes: Right antecubital PICC line placed 020 Other: Met with at bedside. Discussed plan of care prognosis and next kathy ps in this patient's management. 04.30.2020: Respiratory: Patient has poor neurological function which is resulted in the need for prolonged mechanical ventilation and resultant tracheostomy. Continue to monitor for neurological improvement but will need long-term rehab from both a respiratory and neurological component. Continue current care. Patient is unable to be weaned or liberated secondary to neurological dysfunction. Continue to monitor and control secretions Infectious: Patient has been placed on dual therapy for gram-negative Pseudomonas coverage. Given his improvement in white count we will continue this but will need to watch QTC and neurological function on Levaquin. Hopefully with the removal of the leg on the right will be able to discontinue antibiotics. Patient to have right AKA tomorrow. Have ordered blood cultures for the morning. Cardiac: Patient's blood pressure has improved. We will continue to monitor and adjust accordingly. Hematologic: Patient has anemia related to critical illness. Will type and screen and have ordered coagulation studies for potential blood loss associated with amputation. Have stopped heparin for after midnight. Endocrine: Will need long-acting insulin held after midnight with glucose follow-up. Continue to monitor accordingly and supportively. Renal: GFR has improved. Patient still is edematous and will continue to provide diuresis. IV fluids have been discontinued. Will attempt to remove James after surgery. Metabolic: Continue to monitor electrolyte status. Alimentary: Tube feeds on hold after midnight. PEG tube appears to be clean dry and intact. Neurologic: By far the biggest concern is the neurological dysfunction. He had been on L-dopa and Ritalin in hopes to improve his overall function but this does not appear to have helped and these have been discontinued. 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 Had lengthy discussion with who wishes to pursue aggressive care but has a balanced and reasonable agreement that if the patient would decline then we would regroup and discuss what would be in his best interest. Sedation: No active sedation Lines/Tubes: Will attempt to place PICC line today Other: Scheduled for right above-knee amputation. Have ordered chlorhexidine bath. Type and screen as well as coagulation studies have been ordered. Heparin to be held after midnight as well as tube feedings.. Critical Time Critical Time (minutes): 38 Level of Care: ICU Anticipated discharge: SNF Within: within 72 hours -: 1. The care of a critical patient is a dynamic process. This note is a artists' booking representative synopsis but static in nature. The timeframe for treatments given in order is not necessarily the actual time these treatments may have been done. 2. This patient requires critical care secondary to ongoing requirements for therapy not offered or safe outside the critical care environment. Transfer to a lower level of care will result in altered life or limb morbidity and mortality. 3. Multidisciplinary rounds completed. 4. ABCDE bundle addressed.
[2020-05-04 19:19] LABS: ANION GAP 6 (5-19); BLOOD UREA NITROGEN 26 mg/dL (7-20); CALCIUM 7.8 mg/dL (8.4-10.2); CARBON DIOXIDE 27 mmol/L (22-30); CHLORIDE 110 mmol/L (98-107); GLUCOSE 194 mg/dL (75-110); PHOSPHORUS 4.4 mg/dL (2.5-4.5)
[2020-05-04 19:21] LABS: POTASSIUM 2.9 mmol/L (3.6-5.0)
[2020-05-04] MEDS ORDERED: POTASSI CL 20 MEQ/50 ML RIDER 20 MEQ/50 ML RTUPB IV ONE (19:42)
[2020-05-04] MEDS: POTASSI CL 20 MEQ/50 ML RIDER 20 MEQ/50 ML RTUPB IV SCH ×2 (19:52→21:18)
[2020-05-04] MEDS: ATORVASTATIN CALCIUM 40 MG TABLET PO SCH (21:15)
[2020-05-04] MEDS ORDERED: MICAFUNGIN SODIUM 100 MG in NORMAL SALINE 100 ML IV SCH (22:00)
[2020-05-05 02:53] LABS: ANION GAP 6 (5-19); BLOOD UREA NITROGEN 26 mg/dL (7-20); CALCIUM 7.9 mg/dL (8.4-10.2); CARBON DIOXIDE 28 mmol/L (22-30); CHLORIDE 111 mmol/L (98-107); GLUCOSE 224 mg/dL (75-110); POTASSIUM 3.5 mmol/L (3.6-5.0)
[2020-05-05 04:32] LABS: ABSOLUTE BASOPHILS # (AUTO) 0.2 10^3/uL (0.0-0.2); ABSOLUTE EOSINOPHILS # (AUTO) 0.6 10^3/uL (0.0-0.6); ABSOLUTE LYMPHOCYTES (AUTO) 1.7 10^3/uL (0.5-4.7); ABSOLUTE MONOCYTES (AUTO) 1.5 10^3/uL (0.1-1.4); ABSOLUTE NEUT (AUTO) 8.4 10^3/uL (1.7-8.2); BASOPHILS % (AUTO) 1.3 % (0-2); EOSINOPHILS % (AUTO) 4.6 % (0-6); HEMATOCRIT 26.5 % (37.9-51.0); HEMOGLOBIN 8.7 g/dL (13.5-17.0); LYMPHOCYTES % (AUTO) 13.5 % (13-45); MEAN CORPUSCULAR HEMOGLOBIN 27.9 pg (27.0-33.4); MEAN CORPUSCULAR HGB CONC 32.7 g/dL (32.0-36.0); MEAN CORPUSCULAR VOLUME 85 fl (80-97); MONOCYTES % (AUTO) 11.9 % (3-13); PLATELET COUNT 544 10^3/uL (150-450); RED BLOOD COUNT 3.11 10^6/uL (4.35-5.55); RED CELL DISTRIBUTION WIDTH 15.7 % (11.5-14.0); SEGMENTED NEUTROPHILS % (AUTO) 68.7 % (42-78); TOTAL CELLS COUNTED % (AUTO) 100 %; WHITE BLOOD COUNT 12.3 10^3/uL (4.0-10.5)
[2020-05-05 04:48] LABS: ALBUMIN 2.5 g/dL (3.5-5.0); ALKALINE PHOSPHATASE 89 U/L (38-126); ANION GAP 6 (5-19); ASPARTATE AMINO TRANSFERASE 51 U/L (17-59); BILIRUBIN,TOTAL 0.5 mg/dL (0.2-1.3); BLOOD UREA NITROGEN 27 mg/dL (7-20); CALCIUM 7.9 mg/dL (8.4-10.2); CARBON DIOXIDE 28 mmol/L (22-30); CHLORIDE 111 mmol/L (98-107); GLUCOSE 225 mg/dL (75-110); PHOSPHORUS 3.8 mg/dL (2.5-4.5); POTASSIUM 3.7 mmol/L (3.6-5.0); TOTAL PROTEIN 5.9 g/dL (6.3-8.2)
[2020-05-05] MEDS: HEPARIN SOD (PORCINE) 5,000 UNIT/ML 1 ML VIAL SUBCUT SCH ×3 (05:10→21:41)
[2020-05-05] MEDS: HYDRALAZINE HCL 50 MG TABLET PEG SCH ×3 (05:10→21:42)
[2020-05-05] MEDS: CIPROFLOXACIN HCL 500 MG TABLET PEG SCH (05:10)
[2020-05-05] MEDS: FUROSEMIDE INJ/PF 20 MG/2 ML SDV IV SCH ×2 (05:10→19:49)
[2020-05-05] MEDS: AMLODIPINE BESYLATE 5 MG TABLET PEG SCH ×2 (05:10→19:30)
[2020-05-05] MEDS: ACETAMINOPHEN 325 MG TABLET PO PRN (05:11)
[2020-05-05] MEDS: INSULIN REG, HUMAN 100 UNIT/ML 3 ML VIAL (PYX) SUBCUT SCH ×5 (05:33→23:12)
[2020-05-05] MEDS: METHYLPHENIDATE HCL 5 MG TABLET PO SCH ×2 (09:00→17:03)
[2020-05-05] MEDS: SENNOSIDES/DOCUSATE 8.6-50 MG 1 EACH TABLET NG SCH (09:00)
[2020-05-05] MEDS: METOPROLOL TARTRATE 25 MG TABLET PEG SCH ×2 (09:00→21:42)
[2020-05-05] MEDS: CARBIDOPA/LEVODOPA 25-100 MG TABLET PO SCH (09:00)
[2020-05-05] MEDS: ASPIRIN 81 MG TABLET, CHEWABLE PEG SCH (09:00)
[2020-05-05] MEDS: FLUTICASONE NASAL SPRAY 50 MCG/SPRY 120 SPRAY/16 GM NASL SCH ×2 (09:01→21:41)
[2020-05-05] MEDS: MEROPENEM 500 MG in NORMAL SALINE 50 ML IV SCH ×2 (09:01→21:41)
[2020-05-05] MEDS ORDERED: ROCURONIUM BROMIDE INJ 50 MG/5 ML VIAL IV ONE ×2 (12:00→16:00)
--- NOTE | 2020-05-05 14:23 | PDOC PROGRESS REPORT ---
Subjective Progress Note for:: 05/05/20 Reason For Visit: RIGHT FOOT GAS GANGRENE,DIABETES,CKD Physical Exam Vital Signs: Temp Pulse Resp BP Pulse Ox 100.0 F 85 21 H 114/59 L 99 05/05/20 12:00 05/05/20 12:00 05/05/20 12:00 05/05/20 12:00 05/05/20 12:00 Intake & Output 05/04/20 05/05/20 05/06/20 06:59 06:59 06:59 Intake Total 545 1066 Output Total 2400 9740 440 Balance -1855 -1464 -440 Weight 76.9 kg 76 kg Results Laboratory Results: 05/05/20 04:25 05/05/20 04:25 05/04/20 05/05/20 05/05/20 18:50 02:30 04:25 WBC RBC Hgb Hct MCV MCH MCHC RDW Plt Count Seg Neutrophils % Sodium 143.3 144.8 Potassium 2.9 L* 3.5 L Chloride 110 H 111 H Carbon Dioxide 27 28 Anion Gap 6 6 BUN 26 H 26 H Creatinine 2.75 H 2.78 H Est GFR ( Amer) 29 L 29 L Glucose 194 H 224 H Calcium 7.8 L 7.9 L Phosphorus 4.4 Magnesium 2.0 Total Bilirubin AST Alkaline Phosphatase C-Reactive Protein 224.5 H Total Protein Albumin 05/05/20 05/05/20 04:25 04:25 WBC 12.3 H RBC 3.11 L Hgb 8.7 L Hct 26.5 L MCV 85 MCH 27.9 MCHC 32.7 RDW 15.7 H Plt Count 544 H Seg Neutrophils % 68.7 Sodium 145.0 Potassium 3.7 Chloride 111 H Carbon Dioxide 28 Anion Gap 6 BUN 27 H Creatinine 2.66 H Est GFR ( Amer) 30 L Glucose 225 H Calcium 7.9 L Phosphorus 3.8 Magnesium 2.0 Total Bilirubin 0.5 AST 51 Alkaline Phosphatase 89 C-Reactive Protein Total Protein 5.9 L Albumin 2.5 L 04/11/20 04/11/20 04/11/20 01:02 01:02 15:35 Creatine Kinase 743 H CK-MB (CK-2) 2.41 Troponin I 0.077 0.261 04/13/20 04/13/20 04/16/20 04:43 04:43 14:30 Creatine Kinase 540 H 213 H CK-MB (CK-2) Troponin I 0.126 Impressions: Foot X-Ray 04/09/20 20:34 IMPRESSION: Findings are consistent with osteomyelitis involving the lateral aspect of the fifth metatarsal base. Associated underlying pathologic fracture deformity. Superimposed foci of soft tissue gas at this site could indicate infection with a gas-forming organism. copyright 2010 [employer]- All Rights Reserved Chest CT 04/11/20 00:00 IMPRESSION: MILD CARDIOMEGALY. BILATERAL PLEURAL EFFUSIONS WITH FAINT ATELECTASIS. NO LOBAR INFILTRATES. Head CT 04/15/20 05:00 IMPRESSION: NORMAL BRAIN CT WITHOUT CONTRAST. SINUS DISEASE. EVIDENCE OF ACUTE STROKE: NO. Venous Doppler Study 04/20/20 00:00 IMPRESSION: NO EVIDENCE DVT OR SVT IN EITHER LEG. KUB X-Ray 04/23/20 00:00 IMPRESSION: NO RADIOGRAPHIC EVIDENCE FOR ACUTE ABDOMINAL DISEASE. Abdomen/Pelvis CT 04/25/20 00:00 IMPRESSION: Postprocedural changes from recent G-tube placement with small amounts of peritoneal free air. Contrast is present in the stomach and small bowel. Moderate bilateral pleural effusions and basilar atelectasis, increased compared with the prior study. PICC Line Insertion 04/30/20 00:00 IMPRESSION: SUCCESSFUL PLACEMENT OF A 5 FR DUAL LUMEN 42 CM PICC IN THE RIGHT BASILIC VEIN. Soft Tissue Neck CT 05/03/20 00:00 IMPRESSION: Pansinusitis Advanced left lower molar dental caries with periapical tooth root lucencies Chest X-Ray 05/03/20 06:00 IMPRESSION: No change. Assessment & Plan - Diagnosis (1) Diabetic infection of right foot Is this a current diagnosis for this admission?: Yes (2) Osteomyelitis Qualifiers: Osteomyelitis type: unspecified type Osteomyelitis location: foot Laterality: right Qualified Code(s): M86.9 - Osteomyelitis, unspecified Is this a current diagnosis for this admission?: Yes - Plan Summary Plan Summary: 59-year-old male status post above-knee amputation. The incision is clean, dry, and intact. The SILVIO drain has been removed. Continue with routine postoperative care. No further surgical intervention required at this time. Surgery will sign off for now. Remove jennifer in 2 weeks. Follow-up with [facility] after discharge.
[2020-05-05] MEDS ORDERED: MIDAZOLAM 2 MG/2 ML INJ IV ONE ×2 (14:58→16:00)
[2020-05-05] MEDS ORDERED: FENTANYL CITRATE INJ/PF 100 MCG/2 ML AMPUL IV ONE (14:58)
[2020-05-05] MEDS ORDERED: MIDAZOLAM 2 MG/2 ML INJ ONE ×3 (14:59→15:19)
[2020-05-05] MEDS ORDERED: FENTANYL CITRATE INJ/PF 100 MCG/2 ML AMPUL ONE (15:00)
[2020-05-05] MEDS ORDERED: PROPOFOL INJ 200 MG/20 ML VIAL IV ONE ×2 (15:25→16:00)
[2020-05-05] MEDS ORDERED: CHLORHEXIDINE GLUCONATE 0.12% ORAL RINSE 15 ML UDC MM SCH (16:00)
[2020-05-05] MEDS: VANCOMYCIN HCL 1,000 MG in DEXTROSE 5%-WATER 250 ML IV SCH (16:01)
[2020-05-05] MEDS: PROPOFOL 1,000 MG/100 ML INFUS..BTL IV PRN (16:27)
--- NOTE | 2020-05-05 18:30 | PDOC CRITICAL CARE PROG REPORT ---
General Date:: 05/05/20 ICU Day:: 24 Ventilator Day:: 24 - Post trach day #11 Hospital Day:: 24 Resuscitation Status: Full Code Medical Power of [employer]: Amber Events in the past 12 to 24 Hours:: 05.05.2020: Patient persists in a comatose state with reactivity to stimulus by moving head and moving legs. In concern for persistent low-grade temp and white cell elevation I asked ear nose and throat to evaluate the patient for sinus and pharyngeal disease. Extensive evaluation of his sinus was done with the ear nose and throat surgeon. Astutely noted that the back teeth and some of the incisors were piercing significant parenchymal areas of the tongue leading to concern for neurovascular injury. Extensive time was spent at bedside to sedate patient and paralyzed in order to remove the impaled tongue on that tooth. There was no active bleeding. The lower incisor which had become avulsed from the alveolar region was removed for the patient's protection. was contacted prior to this. 05.04.2020: Patient continues to convalesce in the ICU without any significant improvement. Ventilator requirements have lessened and he is on less pressure support. Fever curve has improved. 05.03.2020: No dramatic improvements neurologically although patient does respond to pain now in right incision of AKA when manipulated. Continues to have low-grade temperature elevation improved curves from yesterday with initiation of vancomycin. White blood cell count is elevated and so he was sent for CT of the neck and face to assure that there is no abscess given the excessive tongue biting dental disease. There is significant alveolar and dental disease but no abscess and certainly no soft tissue abscesses. Chest x- ray is essentially clear 05.02.2020: Patient is postop day #1 post right AKA. He was started back on L- dopa for neurological recovery as well as Ritalin. There has not been any notable sequelae. He still is moving head to voice and sound but no dramatic changes in the last 24 hours. Notably he has had a fever without an identifiable source. Investigations have been started including blood cultures. He has been on Cipro and meropenem for a number of days. 05.01.2020: Patient seen after surgery. He is starting to move to voice and move eyes to voice. No seizures or abnormal movements noted. PICC line placed in right arm yesterday. 04.30.2020: Patient continues to convalesce in the ICU. He has had some secretions from his tracheostomy site but no bleeding. Blood pressures have been more stable as well as glucose on current regimen. No seizures have been noted. 04.29.2020; [place]:Did not tolerate trach collar. Doing better on PSV. Review of systems relevant to events:: 05.05.2020: White blood cell count is lower today. Patient placed on mechanical ventilation for sedation to allow tongue to be relieved from airway obstruction and trauma 05.04.2020: No excessive diarrhea. No tube feeding intolerance. 05.03.2020: Fever curve noted. Patient on trach collar trial this morning. No excessive secretions. CT scan shows significant sinusitis/disease. No exte nsive diarrhea or stool output 05.02.2020: Fever noted without hypotension. Attempt to place on trach collar was met with increased respiratory rate. No seizures, Reiger's or hemodynamic instability 05.01.2020: Patient underwent above-knee amputation this morning prior to our evaluation. No untoward sequelae occurred perioperatively and patient is convalescing in the ICU. He did receive inhaled gas and neuromuscular blockade and is recovering and spontaneously breathing. Blood pressure has improved and he has had no fevers. Creatinine is still hovering between 2.9 and 3. He was discontinued from IV fluids yesterday and maintained on Lasix. He was given normal saline through the operative case 04.30.2020: Patient had bowel movement with current regimen. Reglan has been stopped because of the concurrent use of Cipro. White count is decreased and sodium levels have improved as well. Reason for ICU Addmission:: Post respiratorycardiac arrest, Intubated Physical Exam Vital Signs: Temp Pulse Resp BP Pulse Ox 100.0 F 83 17 104/59 L 98 05/05/20 12:00 05/05/20 14:00 05/05/20 17:00 05/05/20 16:55 05/05/20 17:00 Intake & Output 05/04/20 05/05/20 05/06/20 06:59 06:59 06:59 Intake Total 545 1316 Output Total 6124 1285 610 Balance -1855 -1214 -610 Weight 76.9 kg 76 kg Weight/Height Weight 76 kg Height 6 ft General appearance: PRESENT: well-developed, well-nourished Exam: Older appearing 59-year-old black male post tracheostomy. Extremely agitated with manipulation of the mouth Eye exam: PRESENT: PERRLA. ABSENT: conjunctival injection, nystagmus Mouth exam: PRESENT: other - Significant laceration and puncture of the tongue from left molar and canine tooth. Patient sedated and paralyzed to alleviate the ulceration. Mouth packed. Teeth exam: PRESENT: poor dentation, other - Near complete avulsion of lower right incisor. Alveolar tissue appears to be slightly fractured. Tooth removed with assistance of sedation and ENT. Throat exam: ABSENT: post pharyngeal erythema, tonsillogmegaly Neck exam: PRESENT: tracheostomy. ABSENT: carotid bruit, JVD, lymphadenopathy, tracheal deviation Respiratory exam: PRESENT: accessory muscle use - With agitation during procedure. Improved with placing on ventilator., clear to auscultation king, tachypnea. ABSENT: unlabored Cardiovascular exam: PRESENT: RRR, +S1, +S2 Pulses: PRESENT: other - Both legs have amputations no ability to check pulses. ABSENT: normal dorsalis pedis pul Vascular exam: PRESENT: normal capillary refill GI/Abdominal exam: PRESENT: normal bowel sounds, soft, other - PEG tube site clean dry and intact with integrity of tubing. ABSENT: ascites, distended, guarding, mass, organolmegaly, rebound, tenderness Gentrourinary exam: PRESENT: indwelling catheter Extremities exam: PRESENT: pedal edema, +2 edema Musculoskeletal exam: PRESENT: deformity - Left BKA right AKA. Incision clean dry and intact Neurological exam: PRESENT: altered - No central change from yesterday's exam. He responds to noxious stimulus. Extreme response with mid ablation of the tongue was done. He visualizes to voice and stimulus but not consistently Psychiatric exam: PRESENT: agitated Focused psych exam: PRESENT: catatonic Skin exam: PRESENT: dry, intact, warm. ABSENT: cyanosis, rash Tubes/Lines: PRESENT: Peg Tube, Other - Tracheostomy/PEG tube day #11 (04.24.2020), PICC line right antecubital (placed 04-30-2020) Laboratory/Radiographs Laboratory Results: 05/05/20 04:25 05/05/20 04:25 05/04/20 05/05/20 05/05/20 18:50 02:30 04:25 WBC RBC Hgb Hct MCV MCH MCHC RDW Plt Count Seg Neutrophils % Sodium 143.3 144.8 Potassium 2.9 L* 3.5 L Chloride 110 H 111 H Carbon Dioxide 27 28 Anion Gap 6 6 BUN 26 H 26 H Creatinine 2.75 H 2.78 H Est GFR ( Amer) 29 L 29 L Glucose 194 H 224 H Calcium 7.8 L 7.9 L Phosphorus 4.4 Magnesium 2.0 Total Bilirubin AST Alkaline Phosphatase C-Reactive Protein 224.5 H Total Protein Albumin Triglycerides 05/05/20 05/05/20 05/05/20 04:25 04:25 15:57 WBC 12.3 H RBC 3.11 L Hgb 8.7 L Hct 26.5 L MCV 85 MCH 27.9 MCHC 32.7 RDW 15.7 H Plt Count 544 H Seg Neutrophils % 68.7 Sodium 145.0 Potassium 3.7 Chloride 111 H Carbon Dioxide 28 Anion Gap 6 BUN 27 H Creatinine 2.66 H Est GFR ( Amer) 30 L Glucose 225 H Calcium 7.9 L Phosphorus 3.8 Magnesium 2.0 Total Bilirubin 0.5 AST 51 Alkaline Phosphatase 89 C-Reactive Protein Total Protein 5.9 L Albumin 2.5 L Triglycerides 180 H 04/11/20 04/11/20 04/11/20 01:02 01:02 15:35 Creatine Kinase 743 H CK-MB (CK-2) 2.41 Troponin I 0.077 0.261 04/13/20 04/13/20 04/16/20 04:43 04:43 14:30 Creatine Kinase 540 H 213 H CK-MB (CK-2) Troponin I 0.126 Impressions: Foot X-Ray 04/09/20 20:34 IMPRESSION: Findings are consistent with osteomyelitis involving the lateral aspect of the fifth metatarsal base. Associated underlying pathologic fracture deformity. Superimposed foci of soft tissue gas at this site could indicate infection with a gas-forming organism. copyright 2010 [email or web address]- All Rights Reserved Chest CT 04/11/20 00:00 IMPRESSION: MILD CARDIOMEGALY. BILATERAL PLEURAL EFFUSIONS WITH FAINT ATELECTASIS. NO LOBAR INFILTRATES. Head CT 04/15/20 05:00 IMPRESSION: NORMAL BRAIN CT WITHOUT CONTRAST. SINUS DISEASE. EVIDENCE OF ACUTE STROKE: NO. Venous Doppler Study 04/20/20 00:00 IMPRESSION: NO EVIDENCE DVT OR SVT IN EITHER LEG. KUB X-Ray 04/23/20 00:00 IMPRESSION: NO RADIOGRAPHIC EVIDENCE FOR ACUTE ABDOMINAL DISEASE. Abdomen/Pelvis CT 04/25/20 00:00 IMPRESSION: Postprocedural changes from recent G-tube placement with small amounts of peritoneal free air. Contrast is present in the stomach and small bowel. Moderate bilateral pleural effusions and basilar atelectasis, increased compared with the prior study. PICC Line Insertion 04/30/20 00:00 IMPRESSION: SUCCESSFUL PLACEMENT OF A 5 FR DUAL LUMEN 42 CM PICC IN THE RIGHT BASILIC VEIN. Soft Tissue Neck CT 05/03/20 00:00 IMPRESSION: Pansinusitis Advanced left lower molar dental caries with periapical tooth root lucencies Chest X-Ray 05/03/20 06:00 IMPRESSION: No change. All labs, radiographs, diagnostic studies and EKGs were personally reviewed: Yes In addition, reports of radiographic and diagnostic studies were read: Yes Assessment and Plan - Diagnosis (1) Cardiopulmonary arrest with successful resuscitation Is this a current diagnosis for this admission?: Yes (2) Brain anoxic injury Is this a current diagnosis for this admission?: Yes (3) Coma Qualifiers: Coma depth: [place] John coma 3-8 Coma timin hours or more after hospital admission Qualified Code(s): R40.2434 - Lefty coma scale score 3-8, 24 hours or more after hospital admission Is this a current diagnosis for this admission?: Yes (4) Myoclonia epileptica Is this a current diagnosis for this admission?: Yes (5) Fever Qualifiers: Fever type: unspecified Qualified Code(s): R50.9 - Fever, unspecified Is this a current diagnosis for this admission?: Yes (6) Acute on chronic renal failure Qualifiers: Acute renal failure type: with acute tubular necrosis Chronic kidney disease stage: stage 4 (severe) Qualified Code(s): N17.0 - Acute kidney failure with tubular necrosis; N18.4 - Chronic kidney disease, stage 4 (severe) Is this a current diagnosis for this admission?: Yes (7) Metabolic acidosis Is this a current diagnosis for this admission?: Yes (8) Acute respiratory failure with hypoxia and hypercapnia Is this a current diagnosis for this admission?: Yes (9) Acute sinusitis Qualifiers: Sinusitis location: pansinusitis Recurrence: non-recurrent Qualified Code(s): J01.40 - Acute pansinusitis, unspecified Is this a current diagnosis for this admission?: Yes (10) Injury of tongue Qualifiers: Encounter type: initial encounter Qualified Code(s): S09.93XA - Unspecified injury of face, initial encounter Is this a current diagnosis for this admission?: Yes Plan: Patient induced Plan Summary: 05.05.2020: Respiratory: We will place the patient on volume control ventilation and sedate him to allow the tongue to heal. Plan on this process for 24 to 36 hours. Very appreciative of the [employer] security consultant services including surgery and ENT. 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 Infectious: Have discontinued Cipro at this point. It appears that his white count may be related to the invasion of the tongue parenchyma by the teeth. We will continue meropenem and Vanco to cover commensal organisms and including anaerobic's. Continue to follow white count and CRP. Have also discontinued antifungal therapy given the absence of significant findings on fiberoptic view of the sinuses. Have ordered chlorhexidine washes and will keep splint in mouth to keep teeth away from tongue. Cardiac: Patient's blood pressure is better today with sedation and improvement of tongue situation. Given his neurological status it is conceivable that hypertension may have been from physiologic pain response. We will continue to monitor both the mouth and the right AKA stump. Fentanyl is ordered as needed Hematologic: Subtle improvement in white count with elevation in CRP. Our hope is that with the improvement in the tongue that this parameters will improve as well. Continue to monitor for other sources of infection. This does not appear to be a significant sinusitis based on fiberoptic ENT evaluation. Endocrine: Increase Lantus to 20 units at night to cover hyperglycemia. Patient's glucose may be slightly more elevated secondary to the Flonase but this is required to improve sinus drainage. Renal: Creatinine continues to improve. Continue to follow. Metabolic: Sodium elevation slightly higher today. Watch with diuresis. Change IV Lasix to enteral Alimentary: Tube feeds held from 0 600-10 a.m. daily to facilitate absorption of Sinemet. Continue current treatment via PEG tube. Neurologic: No drastic improvement. Our hope is that with removal of the pain nidus of his tongue may assist with improvement. To that end we will have to sedate the patient for 24 to 48 hours to allow the tongue to heal without further dental aggression. Sedation: Propofol sedation. Received paralyzing agent to help facilitate removal of teeth impaling tongue. Lines/Tubes: PICC line placed 04-30-2020. Tracheostomy is day 11 as well as PEG tube Other: Amber updated and she gave verbal consent secondary to pandemic conditions for removal of lower incisor tooth and examination of tongue and treatment. Awaiting acceptance for placement at this point. 05.04.2020: We will continue to follow patient in the ICU as we transition him to LTAC care. His fever curve has improved however CRP is still elevated. Given the situation I have added an antifungal until we can be assured that there is no fungal elements. I am unable to determine any source of infection and his white count and temperature elevation as well as CRP may be indicative of an occult fungal infection however malignancy is also a consideration. We are awaiting placement and further care through the [facility] system. We will continue to follow white blood cell count, ventilatory weaning and labs. Continue diuresis as long as creatinine has improved. Will update family today. Continue Sinemet and Ritalin for neurological recovery. Will need to watch for fever related to these. Continue nutrition at 45 cc an hour to be held 0600 to 1000 daily for proper absorption of Sinemet 05.03.2020: Respiratory: Patient has been transition to trach collar and will continue trach collar trials as long as he can tolerate this. Chest x-ray shows no consolidation or aspiration events. Continue supportive care Infectious: Patient still has elevation in his white blood cell count but decrease in his fever curve. It would be convenient to blame this on AKA however accuracy for diagnosis is of paramount importance. To that end a CT scan was done which did reveal sinusitis. I have placed him on intranasal steroid in hopes to decongest that area. There is no NG tube or any other obstruction except for in the anatomy of his mouth. CT scan did not show any so ft tissue infections at this point. What is most concerning is the possibility of the development of Clostridium difficile infection. Having been on antibiotics in the last 10 days the concern that the fever is related to medications and/or the development of C. difficile has caused vigilant evalu ation. There is no diarrhea at this point and the abdomen is benign on examination. The PEG tube site is clean dry and intact and does not appear to be any source. He is not hemodynamically unstable which raises the suspicion that this may be drug fever. I spoke with infectious disease (Dr. Moreira) appreciative of her thoughts. She would like to continue the current antibiotic regimen for at least 3 to 4 days post procedure. Notably, CRP and procalcitonin are elevated and will need to be monitoring these aspects closely. Obviously patient is at consistent and constant risk of infection given his debilitated state and coma. Cardiac: Hemodynamics have been non-labile. Continue current treatment. Watch for hypotension as a herald for sepsis Hematologic: No active processes other than leukocytosis. Continue to monitor CRP and pro calcitonin. Endocrine: Glucose has been slightly elevated however his tube feeds have been on hold as well as his insulin therapy. Will reinstitute both. Continue to monitor closely. Renal: Creatinine has stabilized and plateau will continue current therapy with diuresis and monitor his creatinine accordingly. Metabolic: Continue to monitor electrolytes and treat supportively Alimentary: Restart tube feeds and insulin therapy. Watch for diarrhea and implement early oral vancomycin increase in white count and or diarrhea Neurologic: There is not been any dramatic or significant improvement although arousals appear to be increased on current L-dopa and Ritalin therapy. Will need to monitor temperature and any evidence of infection which would worsen neurological outcome. Continue to hold tube feeds from 6 AM to 10 AM to allow for appropriate absorption of L-dopa. Sedation: No active sedation patient is comatose with eye opening reactivity and movement of arms and legs to noxious stimulus only Lines/Tubes: PICC line placed 04/30/2020 and tracheostomy/PEG tube placed 04/24/2020 Other: Plans are underway for case management to arrange for transfer to [facility]. Update , Amber by phone. 05.02.2020: Respiratory: Patient was transitioned to trach collar but does not appear to be conditioned enough to tolerate this. We will continue to wean pressure support in an attempt to place on trach collar. Given his fever will check a chest x- ray today sure that no infection in the pulmonary system exists. Gram stain and culture have also been obtained. There is not excessive amount of secretions. The possibility of tongue abscess infection is considered but he is on antibiotics and this should be covered. Furthermore the inspection of the tongue shows an improvement overall. Infectious: Patient has fever with minimal change in his white blood cell count. Procalcitonin has been ordered but unfortunately results are not latent and not always helpful. He is on broad-spectrum antibiotics except for MRSA coverage and will have low threshold to start vancomycin in the interim. This may also represent drug fever and the possibility of discontinuing antibiotics is to be considered. We will obtain urine, sputum and blood cultures attempt to de- escalate therapy as quickly as possible. Given his debilitated state in addition to coma ongoing risk for infection will be a daily concern. Cardiac: No active hemodynamic issues. Blood pressures have improved. He does have a reduced ejection fraction approximately 4045% but this is not complicated any ongoing care. Continue supportive care Hematologic: Continue to monitor for blood loss anemia related to critical i llness. White count has not dramatically change despite his fever. Endocrine: Continuing to monitor and support Renal: Improved today. Continue free water flushes which are minimal and Lasix to reduce edema. I expect that the creatinine will continue to improve with the removal of his leg. Metabolic: Continue to monitor electrolytes and pH status Alimentary: Receiving tube feeds and tolerating well. Continue to monitor response. Tube feeds have been modified to support the use of L-dopa which requires absence of nutritional elements so as to not interfere with absorption. Neurologic: Patient was started on L-dopa and Ritalin. There is improvement in his overall motor function based on noxious stimulus which was not seen prior. I am not sure this is related to the medication however is paramount that we try to discontinue meropenem and Cipro given their neurological effects. We will continue the L-dopa with tube feedings on hold from 6 AM to 10. Patient is in consideration for rehab which will be of paramount importance for his recovery Sedation: None Lines/Tubes: PICC line placed in right antecubital 04.30.2020 Other: Discussion carried out with notified her of fever and plans. Case management follow-up in the next 24 hours for potential transfer to [facility]. 05.01.2020: Respiratory: We will begin the patient on trach collar when he has recovered from surgery. Chest x-ray is clear and there should be no reason that he would not be able to be advanced to trach collar trials. We will continue to follow and monitor secretions. Infectious: Patient had right AKA which should effectively remove source of any infections at this point. Given the fact that the antibiotics may contribute to neurological dysfunction will attempt to de-escalate and discontinue in the next 24 hours. Will follow CBC and his clinical course to determine the best timing for this. We are appreciative of infectious disease input and will discuss with them further in the next 24 hours. My hope is to discontinue Cipro especially given its neurological effects. Cardiac: Blood pressure has improved. Have elected to restart Ritalin to help improve neurological function. Will need to watch for any untoward side effects related to this. Continue current therapy Hematologic: Patient did not require any blood products for surgery. We will continue to monitor his hemoglobin and hematocrit Endocrine: Continue following glucose control and parameters. Renal: Patient has CKD 4 with creatinine that is hovering between 2.5-3. He is grossly edematous which may be reflective of smoldering infection. We will continue to monitor closely. We will continue diuresis and follow creatinine response. Metabolic: Continue to monitor electrolyte profile. Alimentary: Have adjusted Nepro to be given over 20 hours to allow for appropriate absorption of Sinemet which will be restarted. Continue to monitor PEG tube site and watch for any tube feeding intolerance. Neurologic: By far the most significant body system we are concerned about. Have elected to restart medications in hopes to awaken the patient's anoxic brain. Unable to obtain MRI to determine extent of disease however despite anatomical variations on MRI of the functional exam is still of most importance. He appears to be tracking and has sleep wake cycles. We will continue to determine best course of therapy. Given that his AKA is now complete we will move to transition him to neurological rehab facility and have asked case management for assistance. Sedation: None Lines/Tubes: Right antecubital PICC line placed Other: Met with at bedside. Discussed plan of care prognosis and next steps in this patient's management. 04.30.2020: Respiratory: Patient has poor neurological function which is resulted in the need for prolonged mechanical ventilation and resultant tracheostomy. Continue to monitor for neurological improvement but will need long-term rehab from both a respiratory and neurological component. Continue current care. Patient is unable to be weaned or liberated secondary to neurological dysfunction. Continue to monitor and control secretions Infectious: Patient has been placed on dual therapy for gram-negative Pseudomonas coverage. Given his improvement in white count we will continue this but will need to watch QTC and neurological function on Levaquin. Hopefully with the removal of the leg on the right will be able to discontinue antibiotics. Patient to have right AKA tomorrow. Have ordered blood cultures for the morning. Cardiac: Patient's blood pressure has improved. We will continue to monitor and adjust accordingly. Hematologic: Patient has anemia related to critical illness. Will type and screen and have ordered coagulation studies for potential blood loss associated with amputation. Have stopped heparin for after midnight. Endocrine: Will need long-acting insulin held after midnight with glucose follow-up. Continue to monitor accordingly and supportively. Renal: GFR has improved. Patient still is edematous and will continue to provi de diuresis. IV fluids have been discontinued. Will attempt to remove James after surgery. Metabolic: Continue to monitor electrolyte status. Alimentary: Tube feeds on hold after midnight. PEG tube appears to be clean dry and intact. Neurologic: By far the biggest concern is the neurological dysfunction. He had been on L-dopa and Ritalin in hopes to improve his overall function but this cardenas s not appear to have helped and these have been discontinued. 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 Had lengthy discussion with who wishes to pursue aggressive care but has a balanced and reasonable agreement that if the patient would decline then we would regroup and discuss what would be in his best interest. Sedation: No active sedation Lines/Tubes: Will attempt to place PICC line today Other: Scheduled for right above-knee amputation. Have ordered chlorhexidine bath. Type and screen as well as coagulation studies have been ordered. Heparin to be held after midnight as well as tube feedings.. Critical Time Critical Time (minutes): 70 Level of Care: ICU Anticipated discharge: SNF Within: when bed available -: 1. The care of a critical patient is a dynamic process. This note is a pharmacy services representative synopsis but static in nature. The timeframe for treatments given in order is not necessarily the actual time these treatments may have been done. 2. This patient requires critical care secondary to ongoing requirements for therapy not offered or safe outside the critical care environment. Transfer to a lower level of care will result in altered life or limb morbidity and mortality. 3. Multidisciplinary rounds completed. 4. ABCDE bundle addressed.
[2020-05-05] MEDS: FUROSEMIDE 20 MG TABLET PO SCH (19:32)
[2020-05-05] MEDS: CHLORHEXIDINE GLUCONATE 0.12% ORAL RINSE 15 ML UDC MM SCH ×2 (19:44→21:39)
[2020-05-05] MEDS: ATORVASTATIN CALCIUM 40 MG TABLET PO SCH (21:43)
[2020-05-05] MEDS: INSULIN GLARGINE,HUM.REC.ANLOG 1,000 UNIT/10 ML VIAL SUBCUT SCH (21:50)
[2020-05-05] MEDS ORDERED: INSULIN GLARGINE,HUM.REC.ANLOG 1,000 UNIT/10 ML VIAL SUBCUT SCH (22:00)
[2020-05-05] MEDS: FENTANYL CITRATE INJ/PF 100 MCG/2 ML AMPUL IV PRN (22:40)
[2020-05-06 04:38] LABS: ARTERIAL BLOOD BASE EXCESS 5.3 mmol/L; ARTERIAL BLOOD H2CO3 1.09 mmol/L (1.05-1.35); ARTERIAL BLOOD HCO3 28.5 mmol/L (20-24); ARTERIAL BLOOD O2 SATURATION 96.8 % (94-98); ARTERIAL BLOOD PCO2 36.2 mmHg (35-45); ARTERIAL BLOOD PH 7.51 (7.35-7.45); ARTERIAL BLOOD PO2 79.7 mmHg (80-100); ARTERIAL BLOOD TOTAL CO2 29.6 mmol/L (23-27)
[2020-05-06 04:39] LABS: ARTERIAL BLOOD FIO2 28%
[2020-05-06 04:41] LABS: ABSOLUTE BASOPHILS # (AUTO) 0.1 10^3/uL (0.0-0.2); ABSOLUTE EOSINOPHILS # (AUTO) 0.8 10^3/uL (0.0-0.6); ABSOLUTE LYMPHOCYTES (AUTO) 2.3 10^3/uL (0.5-4.7); ABSOLUTE MONOCYTES (AUTO) 1.4 10^3/uL (0.1-1.4); ABSOLUTE NEUT (AUTO) 8.3 10^3/uL (1.7-8.2); BASOPHILS % (AUTO) 0.9 % (0-2); HEMATOCRIT 25.9 % (37.9-51.0); HEMOGLOBIN 8.6 g/dL (13.5-17.0); LYMPHOCYTES % (AUTO) 17.6 % (13-45); MEAN CORPUSCULAR HEMOGLOBIN 28.1 pg (27.0-33.4); MEAN CORPUSCULAR HGB CONC 33.2 g/dL (32.0-36.0); MEAN CORPUSCULAR VOLUME 85 fl (80-97); MONOCYTES % (AUTO) 11.2 % (3-13); PLATELET COUNT 555 10^3/uL (150-450); RED BLOOD COUNT 3.06 10^6/uL (4.35-5.55); RED CELL DISTRIBUTION WIDTH 15.3 % (11.5-14.0); SEGMENTED NEUTROPHILS % (AUTO) 64.3 % (42-78); TOTAL CELLS COUNTED % (AUTO) 100 %
[2020-05-06 04:59] LABS: ANION GAP 7 (5-19); BLOOD UREA NITROGEN 29 mg/dL (7-20); CALCIUM 7.9 mg/dL (8.4-10.2); CARBON DIOXIDE 28 mmol/L (22-30); CHLORIDE 109 mmol/L (98-107); GLUCOSE 156 mg/dL (75-110); POTASSIUM 3.4 mmol/L (3.6-5.0)
[2020-05-06] MEDS: HEPARIN SOD (PORCINE) 5,000 UNIT/ML 1 ML VIAL SUBCUT SCH ×3 (05:29→21:31)
[2020-05-06] MEDS: INSULIN REG, HUMAN 100 UNIT/ML 3 ML VIAL (PYX) SUBCUT SCH ×3 (05:29→18:34)
[2020-05-06] MEDS: AMLODIPINE BESYLATE 5 MG TABLET PEG SCH ×2 (05:30→18:35)
[2020-05-06] MEDS: HYDRALAZINE HCL 50 MG TABLET PEG SCH ×3 (05:30→21:31)
[2020-05-06] MEDS: CHLORHEXIDINE GLUCONATE 0.12% ORAL RINSE 15 ML UDC MM SCH ×3 (05:31→21:33)
[2020-05-06] MEDS: PROPOFOL 1,000 MG/100 ML INFUS..BTL IV PRN ×3 (05:47→19:51)
[2020-05-06] MEDS: METOPROLOL TARTRATE 25 MG TABLET PEG SCH ×2 (09:05→21:31)
[2020-05-06] MEDS: ASPIRIN 81 MG TABLET, CHEWABLE PEG SCH (09:05)
[2020-05-06] MEDS: MEROPENEM 500 MG in NORMAL SALINE 50 ML IV SCH ×2 (09:05→21:32)
[2020-05-06] MEDS: FUROSEMIDE 20 MG TABLET PO SCH ×2 (09:06→18:35)
[2020-05-06] MEDS: SENNOSIDES/DOCUSATE 8.6-50 MG 1 EACH TABLET NG SCH (09:06)
[2020-05-06] MEDS: FLUTICASONE NASAL SPRAY 50 MCG/SPRY 120 SPRAY/16 GM NASL SCH ×2 (09:07→21:33)
[2020-05-06] MEDS: CARBIDOPA/LEVODOPA 25-100 MG TABLET PO SCH (09:11)
[2020-05-06] MEDS: METHYLPHENIDATE HCL 5 MG TABLET PO SCH ×2 (09:11→13:49)
[2020-05-06] MEDS: FENTANYL CITRATE INJ/PF 100 MCG/2 ML AMPUL IV PRN (10:38)
[2020-05-06] MEDS ORDERED: PROPOFOL INJ 200 MG/20 ML VIAL IV ONE (11:00)
[2020-05-06] MEDS ORDERED: FENTANYL CITRATE INJ/PF 100 MCG/2 ML AMPUL IV ONE (11:00)
[2020-05-06] MEDS ORDERED: ROCURONIUM BROMIDE INJ 50 MG/5 ML VIAL IV ONE ×2 (11:00→22:00)
[2020-05-06] MEDS: VANCOMYCIN HCL 1,000 MG in DEXTROSE 5%-WATER 250 ML IV SCH (13:49)
[2020-05-06] MEDS ORDERED: POTASSIUM CHLORIDE 20 MEQ PACKET PO ONE (18:50)
--- NOTE | 2020-05-06 18:54 | PDOC CRITICAL CARE PROG REPORT ---
General Date:: 05/06/20 ICU Day:: 25 Ventilator Day:: 25 - post trach day #12 Hospital Day:: 25 Resuscitation Status: Full Code Medical Power of In Process Inspector: , Amber Events in the past 12 to 24 Hours:: 05.06.2020: Patient maintain his sedated state to prevent any further tongue biting. His hemodynamics have remained non-labile. No significant improvement in neurological function. Heparin held transiently because of tooth removal and concern for bleeding. 05.05.2020: Patient persists in a comatose state with reactivity to stimulus by moving head and moving legs. In concern for persistent low-grade temp and white cell elevation I asked ear nose and throat to evaluate the patient for sinus and pharyngeal disease. Extensive evaluation of his sinus was done with the ear nose and throat surgeon. Astutely noted that the back teeth and some of the incisors were piercing significant parenchymal areas of the tongue leading to concern for neurovascular injury. Extensive time was spent at bedside to sedate patient and paralyzed in order to remove the impaled tongue on that tooth. There was no active bleeding. The lower incisor which had become avulsed from the alveolar region was removed for the patient's protection. was contacted prior to this. 05.04.2020: Patient continues to convalesce in the ICU without any significant improvement. Ventilator requirements have lessened and he is on less pressure support. Fever curve has improved. 05.03.2020: No dramatic improvements neurologically although patient does respond to pain now in right incision of AKA when manipulated. Continues to have low-grade temperature elevation improved curves from yesterday with initiation of vancomycin. White blood cell count is elevated and so he was sent for CT of the neck and face to assure that there is no abscess given the excessive tongue biting dental disease. There is significant alveolar and dental disease but no abscess and certainly no soft tissue abscesses. Chest x- ray is essentially clear 05.02.2020: Patient is postop day #1 post right AKA. He was started back on L- dopa for neurological recovery as well as Ritalin. There has not been any notable sequelae. He still is moving head to voice and sound but no dramatic changes in the last 24 hours. Notably he has had a fever without an identifiable source. Investigations have been started including blood cultures. He has been on Cipro and meropenem for a number of days. 05.01.2020: Patient seen after surgery. He is starting to move to voice and move eyes to voice. No seizures or abnormal movements noted. PICC line placed in right arm yesterday. 04.30.2020: Patient continues to convalesce in the ICU. He has had some secret ions from his tracheostomy site but no bleeding. Blood pressures have been more stable as well as glucose on current regimen. No seizures have been noted. 04.29.2020; [place]:Did not tolerate trach collar. Doing better on PSV. Review of systems relevant to events:: 05.06.2020: Patient was paralyzed and examined again today with replacement of oral packing. Tongue has improved significantly as far swelling. Still significant large ulceration. 05.05.2020: White blood cell count is lower today. Patient placed on mechanical ventilation for sedation to allow tongue to be relieved from airway obstruction and trauma 05.04.2020: No excessive diarrhea. No tube feeding intolerance. 05.03.2020: Fever curve noted. Patient on trach collar trial this morning. No excessive secretions. CT scan shows significant sinusitis/disease. No extensive diarrhea or stool output 05.02.2020: Fever noted without hypotension. Attempt to place on trach collar was met with increased respiratory rate. No seizures, Reiger's or hemodynamic instability 05.01.2020: Patient underwent above-knee amputation this morning prior to our evaluation. No untoward sequelae occurred perioperatively and patient is convalescing in the ICU. He did receive inhaled gas and neuromuscular blockade and is recovering and spontaneously breathing. Blood pressure has improved and he has had no fevers. Creatinine is still hovering between 2.9 and 3. He was discontinued from IV fluids yesterday and maintained on Lasix. He was given normal saline through the operative case 04.30.2020: Patient had bowel movement with current regimen. Reglan has been stopped because of the concurrent use of Cipro. White count is decreased and sodium levels have improved as well. Reason for ICU Addmission:: Post respiratorycardiac arrest, Intubated - Medications: Vasopressors:: None Sedation:: Propofol Physical Exam Vital Signs: Temp Pulse Resp BP Pulse Ox 99.5 F 74 15 94/59 L 100 05/06/20 16:00 05/06/20 18:00 05/06/20 18:00 05/06/20 18:00 05/06/20 18:00 Intake & Output 05/05/20 05/06/20 05/07/20 06:59 06:59 06:59 Intake Total 1316 1035 67 Output Total 0867 1465 460 Balance -1214 -430 -393 Weight 76 kg 77.8 kg 77.8 kg Weight/Height Weight 77.8 kg Height 6 ft General appearance: PRESENT: no acute distress, well-developed, well-nourished Exam: Ill-appearing 59-year-old black male with tracheostomy, no active distress Head exam: PRESENT: normocephalic Eye exam: PRESENT: conjunctiva pink, PERRLA. ABSENT: conjunctival injection, nystagmus, scleral icterus Mouth exam: PRESENT: moist, other - Evaluation of the tongue and dental structures was undertaken under neuromuscular blockade and sedation. The ulceration of the tongue is improving and there is no further bleeding. Swelling is significantly improved. The frontal alveolar ridge on the lower aspect of the dental line is healing well. There is no active bleeding. Careful placement of the tongue within the oral cavity was made and bite blocks were placed to prevent any tongue injury. Neck exam: PRESENT: tracheostomy - Clean dry intact without erythema. ABSENT: JVD, lymphadenopathy Respiratory exam: PRESENT: clear to auscultation king, unlabored. ABSENT: accessory muscle use, rales, rhonchi, tachypnea, wheezes Cardiovascular exam: PRESENT: RRR, +S1, +S2 Pulses: PRESENT: other - Patient is status post bilateral amputation Vascular exam: PRESENT: normal capillary refill GI/Abdominal exam: PRESENT: normal bowel sounds, soft, other - PEG tube site clean dry intact with integrity of tubing system noted. ABSENT: ascites, distended, guarding, mass, organolmegaly, rebound, tenderness Rectal exam: PRESENT: deferred Gentrourinary exam: PRESENT: indwelling catheter - Catheter unable to be removed secondary to swelling Extremities exam: PRESENT: +1 edema - With anasarca of the upper extremities Musculoskeletal exam: PRESENT: deformity - Status post left BKA prior to admission, right AKA incision is clean dry and healing well Neurological exam: PRESENT: altered, other - Patient moves extremities to noxious stimulus. Attempting to keep him sedated to allow for tongue swelling to improve Skin exam: PRESENT: dry, intact, warm. ABSENT: cyanosis, rash Tubes/Lines: PRESENT: Peg Tube - Tracheostomy/PEG tube day #12 (6.6.2020), PICC line right antecubital (placed 04-30-2020) Laboratory/Radiographs Laboratory Results: 05/06/20 04:30 05/06/20 04:30 05/06/20 05/06/20 05/06/20 04:30 04:30 04:30 WBC 13.0 H RBC 3.06 L Hgb 8.6 L Hct 25.9 L MCV 85 MCH 28.1 MCHC 33.2 RDW 15.3 H Plt Count 555 H Seg Neutrophils % 64.3 Carbonic Acid 1.09 HCO3/H2CO3 Ratio 26:1 ABG pH 7.51 H ABG pCO2 36.2 ABG pO2 79.7 L ABG HCO3 28.5 H ABG O2 Saturation 96.8 ABG Base Excess 5.3 FiO2 28% Sodium 143.9 Potassium 3.4 L Chloride 109 H Carbon Dioxide 28 Anion Gap 7 BUN 29 H Creatinine 2.57 H Est GFR ( Amer) 31 L Glucose 156 H Calcium 7.9 L Phosphorus 4.0 Magnesium 2.2 05/01/20 05:54 Blood Blood Culture - Final NO GROWTH IN 5 DAYS 05/01/20 04:35 Blood Blood Culture - Final NO GROWTH IN 5 DAYS 04/11/20 04/11/20 04/11/20 01:02 01:02 15:35 Creatine Kinase 743 H CK-MB (CK-2) 2.41 Troponin I 0.077 0.261 04/13/20 04/13/20 04/16/20 04:43 04:43 14:30 Creatine Kinase 540 H 213 H CK-MB (CK-2) Troponin I 0.126 Impressions: Foot X-Ray 04/09/20 20:34 IMPRESSION: Findings are consistent with osteomyelitis involving the lateral aspect of the fifth metatarsal base. Associated underlying pathologic fracture deformity. Superimposed foci of soft tissue gas at this site could indicate infection with a gas-forming organism. copyright 2011 [employer]- All Rights Reserved Chest CT 04/11/20 00:00 IMPRESSION: MILD CARDIOMEGALY. BILATERAL PLEURAL EFFUSIONS WITH FAINT ATELECTASIS. NO LOBAR INFILTRATES. Head CT 04/15/20 05:00 IMPRESSION: NORMAL BRAIN CT WITHOUT CONTRAST. SINUS DISEASE. EVIDENCE OF ACUTE STROKE: NO. Venous Doppler Study 04/20/20 00:00 IMPRESSION: NO EVIDENCE DVT OR SVT IN EITHER LEG. KUB X-Ray 04/23/20 00:00 IMPRESSION: NO RADIOGRAPHIC EVIDENCE FOR ACUTE ABDOMINAL DISEASE. Abdomen/Pelvis CT 04/25/20 00:00 IMPRESSION: Postprocedural changes from recent G-tube placement with small amounts of peritoneal free air. Contrast is present in the stomach and small b owel. Moderate bilateral pleural effusions and basilar atelectasis, increased compared with the prior study. PICC Line Insertion 04/30/20 00:00 IMPRESSION: SUCCESSFUL PLACEMENT OF A 5 FR DUAL LUMEN 42 CM PICC IN THE RIGHT BASILIC VEIN. Soft Tissue Neck CT 05/03/20 00:00 IMPRESSION: Pansinusitis Advanced left lower molar dental caries with periapical tooth root lucencies Chest X-Ray 05/03/20 06:00 IMPRESSION: No change. 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, 24 hours or more after hospital admission Is this a current diagnosis for this admission?: Yes (4) Myoclonia epileptica Is this a current diagnosis for this admission?: Yes (5) Fever Qualifiers: Fever type: unspecified Qualified Code(s): R50.9 - Fever, unspecified Is this a current diagnosis for this admission?: Yes (6) Acute on chronic renal failure Qualifiers: Acute renal failure type: with acute tubular necrosis Chronic kidney disease stage: stage 4 (severe) Qualified Code(s): N17.0 - Acute kidney failure with tubular necrosis; N18.4 - Chronic kidney disease, stage 4 (severe) Is this a current diagnosis for this admission?: Yes (7) Metabolic acidosis Is this a current diagnosis for this admission?: Yes (8) Acute respiratory failure with hypoxia and hypercapnia Is this a current diagnosis for this admission?: Yes (9) Acute sinusitis Qualifiers: Sinusitis location: pansinusitis Recurrence: non-recurrent Qualified Code(s): J01.40 - Acute pansinusitis, unspecified Is this a current diagnosis for this admission?: Yes (10) Injury of tongue Qualifiers: Encounter type: initial encounter Qualified Code(s): S09.93XA - Unspecified injury of face, initial encounter Is this a current diagnosis for this admission?: Yes Plan Summary: 05.06.2020: Patient's neurological status has not improved much. We are awaiting placement. Given the circumstances it usually takes approximately 3 months to establish a firm diagnosis of persistently vegetative state. That being said he is been maintained in heavy sedation to improve his tongue swelling. This no doubt will contribute to a more prolonged neurological dysfunction. Discussion with his has resulted in continuing to pursue rehabilitative care in hopes to achieve some measurable neurological improvement. Plans are to continue to keep the patient sedated for the next 24 to 48 hours to allow for appropriate tongue healing and prevent any more tongue biting. In order to allow for appropriate management of the oral airway he has had to be paralyzed with each change of dressing. Hopefully with just the improvement in tongue swelling sedation may be all that is necessary. Continue antibiotics for 2-3 more days and follow white blood cell count. CRP has been extremely elevated which may be a manifestation of the extensive tongue laceration and swelling. It is trending down. We will continue to monitor for hemodynamic instability. Hold Ritalin during this phase of sedation but continue L-dopa Follow nutritional status. Continue diuresis and electrolyte replacement. Continue Flonase to improve sinusitis 05.05.2020: Respiratory: We will place the patient on volume control ventilation and sedate him to allow the tongue to heal. Plan on this process for 24 to 36 hours. Very appreciative of the consultant internship services including surgery and ENT. 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 Infectious: Have discontinued Cipro at this point. It appears that his white count may be related to the invasion of the tongue parenchyma by the teeth. We will continue meropenem and Vanco to cover commensal organisms and including anaerobic's. Continue to follow white count and CRP. Have also discontinued antifungal therapy given the absence of significant findings on fiberoptic view of the sinuses. Have ordered chlorhexidine washes and will keep splint in mouth to keep teeth away from tongue. Cardiac: Patient's blood pressure is better today with sedation and improvement of tongue situation. Given his neurological status it is conceivable that hypertension may have been from physiologic pain response. We will continue to monitor both the mouth and the right AKA stump. Fentanyl is ordered as needed Hematologic: Subtle improvement in white count with elevation in CRP. Our hope is that with the improvement in the tongue that this parameters will improve as well. Continue to monitor for other sources of infection. This does not appear to be a significant sinusitis based on fiberoptic ENT evaluation. Endocrine: Increase Lantus to 20 units at night to cover hyperglycemia. Marti ent's glucose may be slightly more elevated secondary to the Flonase but this is required to improve sinus drainage. Renal: Creatinine continues to improve. Continue to follow. Metabolic: Sodium elevation slightly higher today. Watch with diuresis. Change IV Lasix to enteral Alimentary: Tube feeds held from 0 600-10 a.m. daily to facilitate absorption of Sinemet. Continue current treatment via PEG tube. Neurologic: No drastic improvement. Our hope is that with removal of the pain nidus of his tongue may assist with improvement. To that end we will have to sedate the patient for 24 to 48 hours to allow the tongue to heal without further dental aggression. Sedation: Propofol sedation. Received paralyzing agent to help facilitate removal of teeth impaling tongue. Lines/Tubes: PICC line placed 04-30-2020. Tracheostomy is day 11 as well as PEG tube Other: Amber updated and she gave verbal consent secondary to pandemic conditions for removal of lower incisor tooth and examination of tongue and treatment. Awaiting acceptance for placement at this point. 05.04.2020: We will continue to follow patient in the ICU as we transition him to LTAC care. His fever curve has improved however CRP is still elevated. Given the situation I have added an antifungal until we can be assured that there is no fungal elements. I am unable to determine any source of infection and his white count and temperature elevation as well as CRP may be indicative of an occult fungal infection however malignancy is also a consideration. We are awaiting [facility] and [facility] We will continue to follow white blood cell count, ventilatory weaning and labs. Continue diuresis as long as creatinine has improved. Will update family today. Continue Sinemet and Ritalin for neurological recovery. Will need to watch for fever related to these. Continue nutrition at 45 cc an hour to be held 0600 to 1000 daily for proper absorption of Sinemet 6.15.2020: Respiratory: Patient has been transition to trach collar and will continue trach collar trials as long as he can tolerate this. Chest x-ray shows no consolidation or aspiration events. Continue supportive care Infectious: Patient still has elevation in his white blood cell count but decrease in his fever curve. It would be convenient to blame this on AKA however accuracy for diagnosis is of paramount importance. To that end a CT scan was done which did reveal sinusitis. I have placed him on intranasal steroid in hopes to decongest that area. There is no NG tube or any other obstruction except for in the anatomy of his mouth. CT scan did not show any soft tissue infections at this point. What is most concerning is the possibility of the development of Clostridium difficile infection. Having been on antibiotics in the last 10 days the concern that the fever is related to medications and/or the development of C. difficile has caused vigilant evaluation. There is no diarrhea at this point and the abdomen is benign on examination. The PEG tube site is clean dry and intact and does not appear to be any source. He is not hemodynamically unstable which raises the suspicion that this may be drug fever. I spoke with infectious disease (Dr. Moreira) appr eciative of her thoughts. She would like to continue the current antibiotic regimen for at least 3 to 4 days post procedure. Notably, CRP and procalcitonin are elevated and will need to be monitoring these aspects closely. Obviously patient is at consistent and constant risk of infection given his debilitated state and coma. Cardiac: Hemodynamics have been non-labile. Continue current treatment. Watch for hypotension as a herald for sepsis Hematologic: No active processes other than leukocytosis. Continue to monitor CRP and pro calcitonin. Endocrine: Glucose has been slightly elevated however his tube feeds have been on hold as well as his insulin therapy. Will reinstitute both. Continue to monitor closely. Renal: Creatinine has stabilized and plateau will continue current therapy with diuresis and monitor his creatinine accordingly. Metabolic: Continue to monitor electrolytes and treat supportively Alimentary: Restart tube feeds and insulin therapy. Watch for diarrhea and implement early oral vancomycin increase in white count and or diarrhea Neurologic: There is not been any dramatic or significant improvement although arousals appear to be increased on current L-dopa and Ritalin therapy. Will need to monitor temperature and any evidence of infection which would worsen neurological outcome. Continue to hold tube feeds from 6 AM to 10 AM to allow for appropriate absorption of L-dopa. Sedation: No active sedation patient is comatose with eye opening reactivity and movement of arms and legs to noxious stimulus only Lines/Tubes: PICC line placed 04/30/2020 and tracheostomy/PEG tube placed 04/24/2020 Other: Plans are underway for case management to arrange for transfer to [facility]. Update , Amber by phone. 05.02.2020: Respiratory: Patient was transitioned to trach collar but does not appear to be conditioned enough to tolerate this. We will continue to wean pressure support in an attempt to place on trach collar. Given his fever will check a chest x- ray today sure that no infection in the pulmonary system exists. Gram stain and culture have also been obtained. There is not excessive amount of secretions. The possibility of tongue abscess infection is considered but he is on antibiotics and this should be covered. Furthermore the inspection of the tongue shows an improvement overall. Infectious: Patient has fever with minimal change in his white blood cell count. Procalcitonin has been ordered but unfortunately results are not latent and not always helpful. He is on broad-spectrum antibiotics except for MRSA coverage and will have low threshold to start vancomycin in the interim. This may also represent drug fever and the possibility of discontinuing antibiotics is to be considered. We will obtain urine, sputum and blood cultures attempt to de- escalate therapy as quickly as possible. Given his debilitated state in addition to coma ongoing risk for infection will be a daily concern. Cardiac: No active hemodynamic issues. Blood pressures have improved. He does have a reduced ejection fraction approximately 4045% but this is not complicated any ongoing care. Continue supportive care Hematologic: Continue to monitor for blood loss anemia related to critical illness. White count has not dramatically change despite his fever. Endocrine: Continuing to monitor and support Renal: Improved today. Continue free water flushes which are minimal and Lasix to reduce edema. I expect that the creatinine will continue to improve with the removal of his leg. Metabolic: Continue to monitor electrolytes and pH status Alimentary: Receiving tube feeds and tolerating well. Continue to monitor response. Tube feeds have been modified to support the use of L-dopa which r equires absence of nutritional elements so as to not interfere with absorption. Neurologic: Patient was started on L-dopa and Ritalin. There is improvement in his overall motor function based on noxious stimulus which was not seen prior. I am not sure this is related to the medication however is paramount that we try to discontinue meropenem and Cipro given their neurological effects. We will continue the L-dopa with tube feedings on hold from 6 AM to 10. Patient is in consideration for rehab which will be of paramount importance for his recovery Sedation: None Lines/Tubes: PICC line placed in right antecubital 04.30.2020 Other: Discussion carried out with notified her of fever and plans. Case management follow-up in the next 24 hours for potential transfer to rehab center. 05.01.2020: Respiratory: We will begin the patient on trach collar when he has recovered from surgery. Chest x-ray is clear and there should be no reason that he would not be able to be advanced to trach collar trials. We will continue to follow and monitor secretions. Infectious: Patient had right AKA which should effectively remove source of any infections at this point. Given the fact that the antibiotics may contribute to neurological dysfunction will attempt to de-escalate and discontinue in the next 24 hours. Will follow CBC and his clinical course to determine the best timing for this. We are appreciative of infectious disease input and will discuss with them further in the next 24 hours. My hope is to discontinue Cipro especially given its neurological effects. Cardiac: Blood pressure has improved. Have elected to restart Ritalin to help improve neurological function. Will need to watch for any untoward side effects related to this. Continue current therapy Hematologic: Patient did not require any blood products for surgery. We will continue to monitor his hemoglobin and hematocrit Endocrine: Continue following glucose control and parameters. Renal: Patient has CKD 4 with creatinine that is hovering between 2.5-3. He is grossly edematous which may be reflective of smoldering infection. We will continue to monitor closely. We will continue diuresis and follow creatinine response. Metabolic: Continue to monitor electrolyte profile. Alimentary: Have adjusted Nepro to be given over 20 hours to allow for appropriate absorption of Sinemet which will be restarted. Continue to monitor PEG tube site and watch for any tube feeding intolerance. Neurologic: By far the most significant body system we are concerned about. Have elected to restart medications in hopes to awaken the patient's anoxic brain. Unable to obtain MRI to determine extent of disease however despite anatomical variations on MRI of the functional exam is still of most importance. He appears to be tracking and has sleep wake cycles. We will continue to determine best course of therapy. Given that his AKA is now complete we will move to transition him to neurological rehab facility and have asked case management for assistance. Sedation: None Lines/Tubes: Right antecubital PICC line placed Other: Met with at bedside. Discussed plan of care prognosis and next steps in this patient's management. 04.30.2020: Respiratory: Patient has poor neurological function which is resulted in the need for prolonged mechanical ventilation and resultant tracheostomy. Continue to monitor for neurological improvement but will need long-term rehab from both a respiratory and neurological component. Continue current care. Patient is unable to be weaned or liberated secondary to neurological dysfunction. Continue to monitor and control secretions Infectious: Patient has been placed on dual therapy for gram-negative Pseudomonas coverage. Given his improvement in white count we will continue this but will need to watch QTC and neurological function on Levaquin. Hopefully with the removal of the leg on the right will be able to discontinue antibiotics. Patient to have right AKA tomorrow. Have ordered blood cultures for the morning. Cardiac: Patient's blood pressure has improved. We will continue to monitor and adjust accordingly. Hematologic: Patient has anemia related to critical illness. Will type and screen and have ordered coagulation studies for potential blood loss associated with amputation. Have stopped heparin for after midnight. Endocrine: Will need long-acting insulin held after midnight with glucose follow-up. Continue to monitor accordingly and supportively. Renal: GFR has improved. Patient still is edematous and will continue to provide diuresis. IV fluids have been discontinued. Will attempt to remove James after surgery. Metabolic: Continue to monitor electrolyte status. Alimentary: Tube feeds on hold after midnight. PEG tube appears to be clean dry and intact. Neurologic: By far the biggest concern is the neurological dysfunction. He had been on L-dopa and Ritalin in hopes to improve his overall function but this does not appear to have helped and these have been discontinued. 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 Had lengthy discussion with who wishes to pursue aggressive care but has a balanced and reasonable agreement that if the patient would decline then we would regroup and discuss what would be in his best interest. Sedation: No active sedation Lines/Tubes: Will attempt to place PICC line today Other: Scheduled for right above-knee amputation. Have ordered chlorhexidine bath. Type and screen as well as coagulation studies have been ordered. Heparin to be held after midnight as well as tube feedings.. Critical Time Critical Time (minutes): 50 Level of Care: ICU Anticipated discharge: SNF Within: within 72 hours -: 1. The care of a critical patient is a dynamic process. This note is a nutrition representative synopsis but static in nature. The timeframe for treatments given in order is not necessarily the actual time these treatments may have been done. 2. This patient requires critical care secondary to ongoing requirements for therapy not offered or safe outside the critical care environment. Transfer to a lower level of care will result in altered life or limb morbidity and mortality. 3. Multidisciplinary rounds completed. 4. ABCDE bundle addressed.
[2020-05-06] MEDS: ATORVASTATIN CALCIUM 40 MG TABLET PO SCH (21:31)
[2020-05-06] MEDS: INSULIN GLARGINE,HUM.REC.ANLOG 1,000 UNIT/10 ML VIAL SUBCUT SCH (21:32)
[2020-05-07] MEDS: INSULIN REG, HUMAN 100 UNIT/ML 3 ML VIAL (PYX) SUBCUT SCH ×4 (00:31→18:10)
[2020-05-07] MEDS: PROPOFOL 1,000 MG/100 ML INFUS..BTL IV PRN (03:17)
[2020-05-07 04:27] LABS: ABSOLUTE EOSINOPHILS # (AUTO) 0.8 10^3/uL (0.0-0.6); ABSOLUTE LYMPHOCYTES (AUTO) 2.3 10^3/uL (0.5-4.7); ABSOLUTE MONOCYTES (AUTO) 1.4 10^3/uL (0.1-1.4); ABSOLUTE NEUT (AUTO) 9.5 10^3/uL (1.7-8.2); BASOPHILS % (AUTO) 0.3 % (0-2); EOSINOPHILS % (AUTO) 5.6 % (0-6); HEMATOCRIT 25.3 % (37.9-51.0); HEMOGLOBIN 8.5 g/dL (13.5-17.0); LYMPHOCYTES % (AUTO) 16.2 % (13-45); MEAN CORPUSCULAR HEMOGLOBIN 28.5 pg (27.0-33.4); MEAN CORPUSCULAR HGB CONC 33.6 g/dL (32.0-36.0); MEAN CORPUSCULAR VOLUME 85 fl (80-97); MONOCYTES % (AUTO) 10.1 % (3-13); PLATELET COUNT 573 10^3/uL (150-450); RED BLOOD COUNT 2.98 10^6/uL (4.35-5.55); RED CELL DISTRIBUTION WIDTH 15.6 % (11.5-14.0); SEGMENTED NEUTROPHILS % (AUTO) 67.8 % (42-78); TOTAL CELLS COUNTED % (AUTO) 100 %; WHITE BLOOD COUNT 13.9 10^3/uL (4.0-10.5)
[2020-05-07 04:45] LABS: ANION GAP 8 (5-19); BLOOD UREA NITROGEN 30 mg/dL (7-20); CALCIUM 8.1 mg/dL (8.4-10.2); CARBON DIOXIDE 27 mmol/L (22-30); CHLORIDE 107 mmol/L (98-107); GLUCOSE 114 mg/dL (75-110); PHOSPHORUS 4.2 mg/dL (2.5-4.5); POTASSIUM 3.7 mmol/L (3.6-5.0)
[2020-05-07] MEDS: CHLORHEXIDINE GLUCONATE 0.12% ORAL RINSE 15 ML UDC MM SCH ×3 (05:29→21:17)
[2020-05-07] MEDS: HYDRALAZINE HCL 50 MG TABLET PEG SCH ×3 (05:29→21:17)
[2020-05-07] MEDS: AMLODIPINE BESYLATE 5 MG TABLET PEG SCH ×2 (05:29→18:08)
[2020-05-07] MEDS: HEPARIN SOD (PORCINE) 5,000 UNIT/ML 1 ML VIAL SUBCUT SCH ×3 (05:29→21:18)
[2020-05-07] MEDS: CARBIDOPA/LEVODOPA 25-100 MG TABLET PO SCH (08:40)
--- NOTE | 2020-05-07 09:14 | PDOC CRITICAL CARE PROG REPORT ---
General Date:: 05/07/20 ICU Day:: Ventilator Day:: Hospital Day:: 27 Resuscitation Status: Full Code Medical Power of Bread Slicer Machine: Amber Events in the past 12 to 24 Hours:: Extensive bedside tongue repair. Review of systems relevant to events:: Neurological. ENT. Pulmonary. Reason for ICU Addmission:: Post respiratorycardiac arrest, Intubated - Medications: Medications reviewed and adjusted accordingly: Yes Vasopressors:: None Sedation:: Diprivan Physical Exam Vital Signs: Temp Pulse Resp BP Pulse Ox 100.2 F 85 15 106/59 L 99 05/07/20 05:38 05/07/20 08:00 05/07/20 08:00 05/07/20 07:26 05/07/20 08:00 Intake & Output 05/06/20 05/07/20 05/08/20 06:59 06:59 06:59 Intake Total 1035 1060 Output Total 1465 1410 30 Balance -430 -350 -30 Weight 77.8 kg 77.1 kg Weight/Height Weight 77.1 kg Height 6 ft General appearance: PRESENT: no acute distress, well-developed, well-nourished Head exam: PRESENT: atraumatic, normocephalic Eye exam: PRESENT: PERRLA Mouth exam: PRESENT: other - Tongue not bleeding and not impaled on incisor. Neck exam: PRESENT: tracheostomy Respiratory exam: PRESENT: clear to auscultation king. ABSENT: rales, rhonchi, wheezes Cardiovascular exam: PRESENT: RRR. ABSENT: diastolic murmur, rubs, systolic murmur GI/Abdominal exam: PRESENT: normal bowel sounds, soft, other - PEG site clean. ABSENT: distended, guarding, mass, organolmegaly, rebound, tenderness Rectal exam: PRESENT: deferred Gentrourinary exam: PRESENT: indwelling catheter Extremities exam: PRESENT: other - Bilateral AKA. New on R. Incision clean. Neurological exam: PRESENT: other - He is in a persistant vegatative state. Tubes/Lines: PRESENT: Peg Tube, Other - Tracheotomy. Laboratory/Radiographs Laboratory Results: 05/07/20 04:17 05/07/20 04:17 05/07/20 05/07/20 04:17 04:17 WBC 13.9 H RBC 2.98 L Hgb 8.5 L Hct 25.3 L MCV 85 MCH 28.5 MCHC 33.6 RDW 15.6 H Plt Count 573 H Seg Neutrophils % 67.8 Sodium 142.4 Potassium 3.7 Chloride 107 Carbon Dioxide 27 Anion Gap 8 BUN 30 H Creatinine 2.32 H Est GFR ( Amer) 35 L Glucose 114 H Calcium 8.1 L Phosphorus 4.2 Magnesium 2.2 05/01/20 05:54 Blood Blood Culture - Final NO GROWTH IN 5 DAYS 04/11/20 04/11/20 04/11/20 01:02 01:02 15:35 Creatine Kinase 743 H CK-MB (CK-2) 2.41 Troponin I 0.077 0.261 04/13/20 04/13/20 04/16/20 04:43 04:43 14:30 Creatine Kinase 540 H 213 H CK-MB (CK-2) Troponin I 0.126 Impressions: Foot X-Ray 04/09/20 20:34 IMPRESSION: Findings are consistent with osteomyelitis involving the lateral aspect of the fifth metatarsal base. Associated underlying pathologic fracture deformity. Superimposed foci of soft tissue gas at this site could indicate infection with a gas-forming organism. copyright 2010 [employer]- All Rights Reserved Chest CT 04/11/20 00:00 IMPRESSION: MILD CARDIOMEGALY. BILATERAL PLEURAL EFFUSIONS WITH FAINT ATELECTASIS. NO LOBAR INFILTRATES. Head CT 04/15/20 05:00 IMPRESSION: NORMAL BRAIN CT WITHOUT CONTRAST. SINUS DISEASE. EVIDENCE OF ACUTE STROKE: NO. Venous Doppler Study 04/20/20 00:00 IMPRESSION: NO EVIDENCE DVT OR SVT IN EITHER LEG. KUB X-Ray 04/23/20 00:00 IMPRESSION: NO RADIOGRAPHIC EVIDENCE FOR ACUTE ABDOMINAL DISEASE. Abdomen/Pelvis CT 04/25/20 00:00 IMPRESSION: Postprocedural changes from recent G-tube placement with small amounts of peritoneal free air. Contrast is present in the stomach and small bowel. Moderate bilateral pleural effusions and basilar atelectasis, increased compared with the prior study. PICC Line Insertion 04/30/20 00:00 IMPRESSION: SUCCESSFUL PLACEMENT OF A 5 FR DUAL LUMEN 42 CM PICC IN THE RIGHT BASILIC VEIN. Soft Tissue Neck CT 05/03/20 00:00 IMPRESSION: Pansinusitis Advanced left lower molar dental caries with periapical tooth root lucencies Chest X-Ray 05/03/20 06:00 IMPRESSION: No change. All labs, radiographs, diagnostic studies and EKGs were personally reviewed: Yes In addition, reports of radiographic and diagnostic studies were read: Yes Assessment and Plan - Diagnosis (1) Brain anoxic injury Is this a current diagnosis for this admission?: Yes Plan: Persistant vegatative state. Will need placement. (2) Cardiopulmonary arrest with successful resuscitation Is this a current diagnosis for this admission?: Yes Plan: The cause for the anoxic injury. 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 (5) Diabetic infection of right foot Is this a current diagnosis for this admission?: Yes Plan: Resolved with AKA. Plan Summary: [facility] Will try trach collar again today. Critical Time Critical Time (minutes): 35 Level of Care: ICU Anticipated discharge: Other Within: when bed available, Other -: 1. The care of a critical patient is a dynamic process. This note is a client service representative synopsis but static in nature. The timeframe for treatments given in order is not necessarily the actual time these treatments may have been done. 2. This patient requires critical care secondary to ongoing requirements for therapy not offered or safe outside the critical care environment. Transfer to a lower level of care will result in altered life or limb morbidity and mortality. 3. Multidisciplinary rounds completed. 4. ABCDE bundle addressed.
[2020-05-07] MEDS: METOPROLOL TARTRATE 25 MG TABLET PEG SCH ×2 (10:01→21:17)
[2020-05-07] MEDS: ASPIRIN 81 MG TABLET, CHEWABLE PEG SCH (10:01)
[2020-05-07] MEDS: FUROSEMIDE 20 MG TABLET PO SCH ×2 (10:02→18:08)
[2020-05-07] MEDS: MEROPENEM 500 MG in NORMAL SALINE 50 ML IV SCH ×2 (10:02→21:17)
[2020-05-07] MEDS: SENNOSIDES/DOCUSATE 8.6-50 MG 1 EACH TABLET NG SCH (10:02)
[2020-05-07] MEDS: FLUTICASONE NASAL SPRAY 50 MCG/SPRY 120 SPRAY/16 GM NASL SCH ×2 (10:02→21:19)
[2020-05-07] MEDS: LORAZEPAM INJ 2 MG/1 ML VIAL IV PRN ×2 (11:27→20:51)
[2020-05-07] MEDS: ACETAMINOPHEN 325 MG TABLET PO PRN (13:45)
[2020-05-07 14:10] LABS: VANCOMYCIN,TROUGH 24.3 ug/mL (5.0-20.0)
[2020-05-07] MEDS: VANCOMYCIN HCL 1,000 MG in DEXTROSE 5%-WATER 250 ML IV SCH (14:49)
[2020-05-07] MEDS: ATORVASTATIN CALCIUM 40 MG TABLET PO SCH (21:17)
[2020-05-07] MEDS: INSULIN GLARGINE,HUM.REC.ANLOG 1,000 UNIT/10 ML VIAL SUBCUT SCH (21:18)
[2020-05-08] MEDS: INSULIN REG, HUMAN 100 UNIT/ML 3 ML VIAL (PYX) SUBCUT SCH ×5 (00:42→23:57)
[2020-05-08] MEDS: FENTANYL CITRATE INJ/PF 100 MCG/2 ML AMPUL IV PRN (01:23)
[2020-05-08] MEDS: HEPARIN SOD (PORCINE) 5,000 UNIT/ML 1 ML VIAL SUBCUT SCH ×3 (05:27→21:21)
[2020-05-08] MEDS: HYDRALAZINE HCL 50 MG TABLET PEG SCH ×3 (05:27→22:33)
[2020-05-08] MEDS: AMLODIPINE BESYLATE 5 MG TABLET PEG SCH ×2 (05:28→17:39)
[2020-05-08] MEDS: CHLORHEXIDINE GLUCONATE 0.12% ORAL RINSE 15 ML UDC MM SCH ×3 (05:29→21:19)
--- NOTE | 2020-05-08 09:35 | PDOC CRITICAL CARE PROG REPORT ---
General Date:: 05/08/20 ICU Day:: 27 Ventilator Day:: 27 Hospital Day:: 28 Resuscitation Status: Full Code Medical Power of Biodiesel Product Manager: Amber Events in the past 12 to 24 Hours:: He has once again failed trachcollar trials. Review of systems relevant to events:: Neurologic, respiratory. Reason for ICU Addmission:: Post respiratorycardiac arrest, persistently vegatative. - Medications: Medications reviewed and adjusted accordingly: Yes Vasopressors:: None Sedation:: None Physical Exam Vital Signs: Temp Pulse Resp BP Pulse Ox 100.2 F 84 15 118/62 98 05/08/20 05:33 05/07/20 20:00 05/08/20 06:00 05/08/20 05:27 05/08/20 06:00 Intake & Output 05/07/20 05/08/20 05/09/20 06:59 06:59 06:59 Intake Total 1060 1587 Output Total 1410 1860 Balance -350 -273 Weight 77.1 kg 78.9 kg Weight/Height Weight 78.9 kg Height 6 ft General appearance: PRESENT: no acute distress Head exam: PRESENT: atraumatic, normocephalic Eye exam: PRESENT: conjunctiva pink, EOMI, PERRLA. ABSENT: scleral icterus Ear exam: PRESENT: normal external ear exam Mouth exam: PRESENT: tongue midline, other - Tongue wounds healing Neck exam: PRESENT: tracheostomy Respiratory exam: PRESENT: clear to auscultation king. ABSENT: rales, rhonchi, wheezes Cardiovascular exam: PRESENT: RRR. ABSENT: diastolic murmur, rubs, systolic murmur GI/Abdominal exam: PRESENT: normal bowel sounds, soft, other - PEG site clean.. ABSENT: distended, guarding, mass, organolmegaly, rebound, tenderness Rectal exam: PRESENT: deferred Gentrourinary exam: PRESENT: indwelling catheter Extremities exam: PRESENT: other - Bilateral AKAs Neurological exam: PRESENT: other - Persistently vegatative. Skin exam: PRESENT: dry, intact, warm. ABSENT: cyanosis, rash Tubes/Lines: PRESENT: Peg Tube, Other - Tracheostomy Laboratory/Radiographs Laboratory Results: 05/07/20 04:17 05/07/20 04:17 05/24/20 05/24/20 05/24/20 01:02 01:02 15:35 Creatine Kinase 743 H CK-MB (CK-2) 2.41 Troponin I 0.077 0.261 04/13/20 04/13/20 04/16/20 04:43 04:43 14:30 Creatine Kinase 540 H 213 H CK-MB (CK-2) Troponin I 0.126 Impressions: Foot X-Ray 04/09/20 20:34 IMPRESSION: Findings are consistent with osteomyelitis involving the lateral aspect of the fifth metatarsal base. Associated underlying pathologic fracture deformity. Superimposed foci of soft tissue gas at this site could indicate infection with a gas-forming organism. copyright 2010 [employer]- All Rights Reserved Chest CT 04/11/20 00:00 IMPRESSION: MILD CARDIOMEGALY. BILATERAL PLEURAL EFFUSIONS WITH FAINT ATELECTASIS. NO LOBAR INFILTRATES. Head CT 04/15/20 05:00 IMPRESSION: NORMAL BRAIN CT WITHOUT CONTRAST. SINUS DISEASE. EVIDENCE OF ACUTE STROKE: NO. Venous Doppler Study 04/20/20 00:00 IMPRESSION: NO EVIDENCE DVT OR SVT IN EITHER LEG. KUB X-Ray 04/23/20 00:00 IMPRESSION: NO RADIOGRAPHIC EVIDENCE FOR ACUTE ABDOMINAL DISEASE. Abdomen/Pelvis CT 04/25/20 00:00 IMPRESSION: Postprocedural changes from recent G-tube placement with small amounts of peritoneal free air. Contrast is present in the stomach and small bowel. Moderate bilateral pleural effusions and basilar atelectasis, increased compared with the prior study. PICC Line Insertion 04/30/20 00:00 IMPRESSION: SUCCESSFUL PLACEMENT OF A 5 FR DUAL LUMEN 42 CM PICC IN THE RIGHT BASILIC VEIN. Soft Tissue Neck CT 05/03/20 00:00 IMPRESSION: Pansinusitis Advanced left lower molar dental caries with periapical tooth root lucencies Chest X-Ray 05/03/20 06:00 IMPRESSION: No change. All labs, radiographs, diagnostic studies and EKGs were personally reviewed: Yes In addition, reports of radiographic and diagnostic studies were read: Yes Assessment and Plan - Diagnosis (1) Brain anoxic injury Is this a current diagnosis for this admission?: Yes Plan: At this point he is 27 days after arrest with no improvement. He will qualify for persistantly vegatative at 30 days. He has failed trac collar twice and T=peice once. But he is stable on minimal vent support. He fits criteria of stable vent and trach. (2) Cardiopulmonary arrest with successful resuscitation Is this a current diagnosis for this admission?: Yes Plan: He has survived with a devastating neurological injury. 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 [place] [facility] [place] Time Critical Time (minutes): 30 Level of Care: IMCU Anticipated discharge: Other Within: Other -: 1. The care of a critical patient is a dynamic process. This note is a medical service representative synopsis but static in nature. The timeframe for treatments given in order is not necessarily the actual time these treatments may have been done. 2. This patient requires critical care secondary to ongoing requirements for therapy not offered or safe outside the critical care environment. Transfer to a lower level of care will result in altered life or limb morbidity and mortality. 3. Multidisciplinary rounds completed. 4. ABCDE bundle addressed.
[2020-05-08] MEDS: SENNOSIDES/DOCUSATE 8.6-50 MG 1 EACH TABLET NG SCH (10:17)
[2020-05-08] MEDS: MEROPENEM 500 MG in NORMAL SALINE 50 ML IV SCH ×2 (10:17→21:19)
[2020-05-08] MEDS: METOPROLOL TARTRATE 25 MG TABLET PEG SCH ×2 (10:17→21:18)
[2020-05-08] MEDS: ASPIRIN 81 MG TABLET, CHEWABLE PEG SCH (10:17)
[2020-05-08] MEDS: FUROSEMIDE 20 MG TABLET PO SCH ×2 (10:17→17:39)
[2020-05-08] MEDS: FLUTICASONE NASAL SPRAY 50 MCG/SPRY 120 SPRAY/16 GM NASL SCH ×2 (10:18→21:21)
[2020-05-08] MEDS: LORAZEPAM INJ 2 MG/1 ML VIAL IV PRN (11:40)
[2020-05-08] MEDS: VANCOMYCIN HCL 750 MG in DEXTROSE 5%-WATER 250 ML IV SCH (15:09)
[2020-05-08] MEDS: ATORVASTATIN CALCIUM 40 MG TABLET PO SCH (21:18)
[2020-05-08] MEDS: INSULIN GLARGINE,HUM.REC.ANLOG 1,000 UNIT/10 ML VIAL SUBCUT SCH (21:22)
[2020-05-09 03:29] LABS: ABSOLUTE BASOPHILS # (AUTO) 0.1 10^3/uL (0.0-0.2); ABSOLUTE EOSINOPHILS # (AUTO) 0.8 10^3/uL (0.0-0.6); ABSOLUTE LYMPHOCYTES (AUTO) 2.1 10^3/uL (0.5-4.7); ABSOLUTE MONOCYTES (AUTO) 1.5 10^3/uL (0.1-1.4); BASOPHILS % (AUTO) 0.8 % (0-2); EOSINOPHILS % (AUTO) 6.3 % (0-6); HEMATOCRIT 23.3 % (37.9-51.0); LYMPHOCYTES % (AUTO) 15.5 % (13-45); MEAN CORPUSCULAR HEMOGLOBIN 27.3 pg (27.0-33.4); MEAN CORPUSCULAR HGB CONC 32.5 g/dL (32.0-36.0); MEAN CORPUSCULAR VOLUME 84 fl (80-97); MONOCYTES % (AUTO) 10.7 % (3-13); PLATELET COUNT 550 10^3/uL (150-450); RED BLOOD COUNT 2.77 10^6/uL (4.35-5.55); RED CELL DISTRIBUTION WIDTH 15.5 % (11.5-14.0); SEGMENTED NEUTROPHILS % (AUTO) 66.7 % (42-78); TOTAL CELLS COUNTED % (AUTO) 100 %; WHITE BLOOD COUNT 13.5 10^3/uL (4.0-10.5)
[2020-05-09 03:30] LABS: HEMOGLOBIN 7.6 g/dL (13.5-17.0)
[2020-05-09 03:46] LABS: ANION GAP 8 (5-19); BLOOD UREA NITROGEN 32 mg/dL (7-20); CALCIUM 8.1 mg/dL (8.4-10.2); CARBON DIOXIDE 28 mmol/L (22-30); CHLORIDE 105 mmol/L (98-107); GLUCOSE 155 mg/dL (75-110); POTASSIUM 3.6 mmol/L (3.6-5.0)
[2020-05-09] MEDS: HYDRALAZINE HCL 50 MG TABLET PEG SCH ×3 (05:20→21:57)
[2020-05-09] MEDS: INSULIN REG, HUMAN 100 UNIT/ML 3 ML VIAL (PYX) SUBCUT SCH ×2 (05:39→18:33)
[2020-05-09] MEDS: HEPARIN SOD (PORCINE) 5,000 UNIT/ML 1 ML VIAL SUBCUT SCH ×3 (05:40→21:58)
[2020-05-09] MEDS: CHLORHEXIDINE GLUCONATE 0.12% ORAL RINSE 15 ML UDC MM SCH ×3 (05:40→21:57)
[2020-05-09] MEDS: AMLODIPINE BESYLATE 5 MG TABLET PEG SCH ×2 (05:50→18:35)
--- NOTE | 2020-05-09 06:40 | PDOC CONSULTATION ---
Consultation Consult Date: 05/05/20 Provider Consulted: JARED EDDY Consult reason:: Patient with fevers of unknown origin/FUO and recent CT with sinus disease noted with request for ENT evaluation and endoscopy. History of Present Illness Admission Date/PCP: 04/10/20 01:02 Patient complains of: The patient not responsive with verbal communication as he has a tracheostomy tube, is sedated, and with an uncertain level of mentation at present. History of Present Illness: VITO FRANCISCO JR is a 59 year Afro-[place] male with very extensive and complex medical history. The ICU staff have noted the patient to be with fevers of unknown origin/FUO and noted sinus disease on recent CT imaging and requested ENT evaluation to include flexible endoscopy and additional culturing as indicated. The patient's medical record and CT imaging were reviewed and there was extensive discussion with the ICU staff attending. Past Medical History Cardiac Medical History: Reports: Coronary Artery Disease, Hypertension Pulmonary Medical History: Reports: Bronchitis - IN PAST Denies: Asthma, Chronic Obstructive Pulmonary Disease (COPD), Pneumonia EENT Medical History: Reports: Other - Current stable tracheostomy tube in place and attached to a ventilator Neurological Medical History: Denies: Seizures Endocrine Medical History: Reports: Diabetes Mellitus Type 2 Malignancy Medical History: Reports: None GI Medical History: Reports: None Musculoskeltal Medical History: Denies: Arthritis Skin Medical History: Reports: None Psychiatric Medical History: Denies: Alcohol Dependency, Depression, Tobacco Dependency Traumatic Medical History: Reports: None Hematology: Denies: Anemia Infectious Medical History: Reports: None Past Surgical History Past Surgical History: Reports: Orthopedic Surgery - Left AKA February 2020 Social History Information Source: [facility] Records - Patient medical information obtained from medical record and extensive discussion with the ICU staff attending Lives with: Spouse/Significant other Smoking Status: Former Smoker Electronic Cigarette use?: No Frequency of Alcohol Use: None Hx Recreational Drug Use: No Drugs: None Hx Prescription Drug Abuse: No - Advance Directive Resuscitation Status: Full Code Family History Family History: CAD, DM Parental Family History Reviewed: No Children Family History Reviewed: NA Sibling(s) Family History Reviewed.: NA Medication/Allergy Home Medications: Amlodipine Besylate [Norvasc 10 mg Tablet] 10 mg PO DAILY 08/16/16 Aspirin [Adult Low Dose Aspirin EC] 81 mg PO DAILY 04/10/20 Ferrous Sulfate [Feosol 325 mg Tablet] 325 mg PO DAILY 04/10/20 Gabapentin [Neurontin] 600 mg PO QPM 04/10/20 Insulin Glargine,Hum.rec.anlog [Lantus Insulin 100 Unit/1 ml 10 ml] 12 unit SQ QHS 04/10/20 Isosorbide Mononitrate [Imdur 30 mg Tablet.er] 30 mg PO DAILY 04/10/20 Losartan Potassium [Cozaar 25 mg Tablet] 25 mg PO DAILY 04/10/20 Metoprolol Succinate [Toprol Xl 50 mg Tab.sr] 50 mg PO DAILY 04/10/20 Tamsulosin HCl [Flomax] 0.4 mg PO QPM 04/10/20 Venlafaxine HCl ER [Effexor Xr 37.5 mg Cap.sr] 37.5 mg PO DAILY 04/10/20 Allergies/Adverse Reactions: No Known Allergies Allergy (Verified 04/09/20 21:34) Review of Systems ROS unobtainable: Other - Due to tracheostomy tube, ventilator support, and sedation All systems: reviewed and no additional remarkable complaints except as stated Physical Exam Vital Signs: Temp Pulse Resp BP Pulse Ox 100.0 F 84 16 127/62 H 100 05/06/20 08:00 05/06/20 08:00 05/06/20 08:00 05/06/20 08:00 05/06/20 08:40 Intake & Output 05/05/20 05/06/20 05/07/20 06:59 06:59 06:59 Intake Total 1316 785 14 Output Total 2530 1465 0 Balance -1214 -680 14 Weight 76 kg 77.8 kg General appearance: PRESENT: other - The patient is responsive only to pain, is with a stable tracheostomy tube attached to a ventilator via the circuit. However, the patient was communicated to throughout the ENT consult evaluation with information being communicated to him and the patient was gently moved and worked with throughout the consultation period. Head exam: PRESENT: normocephalic Eye exam: PRESENT: other - Patient gaze non-purposeful Ear exam: PRESENT: TM's normal bilaterally, other - Mild left serous appearing MAISHA Mouth exam: PRESENT: moist, other - Patient is with very poor dentition with multiple missing teeth, multiple loose teeth to include lower central incisor almost dislodged. The tongue was with mild split/laceration/ulceration of the distal tip aspect and was severely ulcerated dorsally and ventrally between the left upper and lower molars with concern for erosion into the neurovascular bundle on the left, and there was no active bleeding at present. The evaluation of the tongue appeared uncomfortable to the patient. Teeth exam: PRESENT: dental caries, poor dentation, other - After verbal consent over the phone from the patient's the lower central incisor was removed during the consult visit, see below, without difficulty with the tooth root intact and there was already fracturing of the alveolar bony margins. Throat exam: PRESENT: other - The overall exam was difficult due to severe tongue swelling, and the oral pharynx appeared edematous, no erythema, no exudate, or obvious masses were noted Neck exam: PRESENT: tracheostomy Respiratory exam: PRESENT: clear to auscultation king, symmetrical Cardiovascular exam: PRESENT: RRR Extremities exam: PRESENT: other - Patient with bilateral lower leg amputations, a surgical staple line at the left AKA site, and non-purposeful movement was noted at times Musculoskeletal exam: PRESENT: other - The patient was lying on his back in an ICU bed with tracheostomy tube attached to the ventilator via circuit Neurological exam: PRESENT: altered Skin exam: PRESENT: warm Additional comments: The following two separate procedures were performed: - It was explained to the patient and the ICU staff that transnasal flexible fiberoptic endoscopy would be performed. There were no sinonasal polyps, there was no sinonasal discharge drainage or PND noted, nasopharynx and Rose were unremarkable, oropharynx appeared edematous, and then visualization into the hypopharynx was difficult and the TVC could be visualized due to the degree of edema and secretions even with suctioning being performed. CPT code 03723. - In a coordinated fashion with the ICU staff attending, and due to patient discomfort, the patient was sedated and paralyzed to allow for the patient's mouth to be more fully open with a rolled gauze bite-block placed between the left molars to free his tongue and allow for his tongue to sit more in the midline of his oral cavity without pressure on it. At this point the lower central incisor was also removed with a root and tacked and there was already fracturing and mobility of the surrounding alveolar bone. Gauze was applied to the tooth extraction site and there was adequate hemostasis noted. Oral hygiene and tongue local wound care was discussed with the ICU staff attending. Results Laboratory Results: 05/06/20 04:30 05/06/20 04:30 05/05/20 05/06/20 05/06/20 15:57 04:30 04:30 WBC RBC Hgb Hct MCV MCH MCHC RDW Plt Count Seg Neutrophils % Carbonic Acid 1.09 HCO3/H2CO3 Ratio 26:1 ABG pH 7.51 H ABG pCO2 36.2 ABG pO2 79.7 L ABG HCO3 28.5 H ABG O2 Saturation 96.8 ABG Base Excess 5.3 FiO2 28% Sodium 143.9 Potassium 3.4 L Chloride 109 H Carbon Dioxide 28 Anion Gap 7 BUN 29 H Creatinine 2.57 H Est GFR ( Amer) 31 L Glucose 156 H Calcium 7.9 L Phosphorus 4.0 Magnesium 2.2 Triglycerides 180 H 05/06/20 04:30 WBC 13.0 H RBC 3.06 L Hgb 8.6 L Hct 25.9 L MCV 85 MCH 28.1 MCHC 33.2 RDW 15.3 H Plt Count 555 H Seg Neutrophils % 64.3 Carbonic Acid HCO3/H2CO3 Ratio ABG pH ABG pCO2 ABG pO2 ABG HCO3 ABG O2 Saturation ABG Base Excess FiO2 Sodium Potassium Chloride Carbon Dioxide Anion Gap BUN Creatinine Est GFR ( Amer) Glucose Calcium Phosphorus Magnesium Triglycerides 05/01/20 05:54 Blood Blood Culture - Final NO GROWTH IN 5 DAYS 05/01/20 04:35 Blood Blood Culture - Final NO GROWTH IN 5 DAYS 04/11/20 04/11/20 04/11/20 01:02 01:02 15:35 Creatine Kinase 743 H CK-MB (CK-2) 2.41 Troponin I 0.077 0.261 04/13/20 04/13/20 04/16/20 04:43 04:43 14:30 Creatine Kinase 540 H 213 H CK-MB (CK-2) Troponin I 0.126 Impressions: Foot X-Ray 04/09/20 20:34 IMPRESSION: Findings are consistent with osteomyelitis involving the lateral aspect of the fifth metatarsal base. Associated underlying pathologic fracture deformity. Superimposed foci of soft tissue gas at this site could indicate infection with a gas-forming organism. copyright 2010 [employer]- All Rights Reserved Chest CT 04/11/20 00:00 IMPRESSION: MILD CARDIOMEGALY. BILATERAL PLEURAL EFFUSIONS WITH FAINT ATELECTASIS. NO LOBAR INFILTRATES. Head CT 04/15/20 05:00 IMPRESSION: NORMAL BRAIN CT WITHOUT CONTRAST. SINUS DISEASE. EVIDENCE OF ACUTE STROKE: NO. Venous Doppler Study 04/20/20 00:00 IMPRESSION: NO EVIDENCE DVT OR SVT IN EITHER LEG. KUB X-Ray 04/23/20 00:00 IMPRESSION: NO RADIOGRAPHIC EVIDENCE FOR ACUTE ABDOMINAL DISEASE. Abdomen/Pelvis CT 04/25/20 00:00 IMPRESSION: Postprocedural changes from recent G-tube placement with small amounts of peritoneal free air. Contrast is present in the stomach and small bowel. Moderate bilateral pleural effusions and basilar atelectasis, increased compared with the prior study. PICC Line Insertion 04/30/20 00:00 IMPRESSION: SUCCESSFUL PLACEMENT OF A 5 FR DUAL LUMEN 42 CM PICC IN THE RIGHT BASILIC VEIN. Soft Tissue Neck CT 05/03/20 00:00 IMPRESSION: Pansinusitis Advanced left lower molar dental caries with periapical tooth root lucencies Chest X-Ray 05/03/20 06:00 IMPRESSION: No change. Assessment & Plan - Diagnosis (1) Acute sinusitis Qualifiers: Sinusitis location: pansinusitis Recurrence: non-recurrent Qualified Code(s): J01.40 - Acute pansinusitis, unspecified Is this a current diagnosis for this admission?: Yes (2) Ulcerated tongue Is this a current diagnosis for this admission?: Yes (3) Poor dentition Is this a current diagnosis for this admission?: Yes - Time Time Spent: Greater than 70 Minutes Medications reviewed and adjusted accordingly: Yes - As discussed with the ICU staff attending Anticipated discharge: Other - Per ICU staff attending Within: Other - Per ICU staff attending - Inpatient Certification Based on my medical assessment, after consideration of the patient's comorbidities, presenting symptoms, or acuity I expect that the services needed warrant INPATIENT care.: Yes I certify that my determination is in accordance with my understanding of Medicare's requirements for reasonable and necessary INPATIENT services [42 CFR 412.3e].: Yes Medical Necessity: Other - ICU level care Post Hospital Care: Other - ICU level care - Plan Summary Plan Summary: The ICU consult findings were discussed in detail with the ICU staff attending and oral/dentition/tongue procedures were performed in coordination with the ICU staff attending with sedation and paralyzation utilized and all procedural information was communicated beforehand via the ICU staff attending to the patient's who gave verbal consent over the phone. Oral/tongue hygiene/local wound care will be managed by the ICU staff. ENT is available as needed which the ICU staff attending voiced an understanding of and was in agreement with.
--- NOTE | 2020-05-09 09:37 | PDOC CRITICAL CARE PROG REPORT ---
General Date:: 05/09/20 ICU Day:: 28 Ventilator Day:: 28 Hospital Day:: 29 Resuscitation Status: Full Code Medical Power of Litigation Claim Representative: Amber Events in the past 12 to 24 Hours:: Tolerated PSV for more than 24 hours now. Stable. Review of systems relevant to events:: Neurological. Pulmonary. Reason for ICU Addmission:: Post respiratorycardiac arrest, persistently vegatative. - Medications: Medications reviewed and adjusted accordingly: Yes Vasopressors:: None Sedation:: None Physical Exam Vital Signs: Temp Pulse Resp BP Pulse Ox 99.9 F 125 H 18 139/68 H 96 05/09/20 06:00 05/09/20 00:30 05/09/20 08:52 05/09/20 05:46 05/09/20 08:52 Intake & Output 05/08/20 05/09/20 05/10/20 06:59 06:59 06:59 Intake Total 1587 1008 Output Total 1860 1485 Balance -273 -477 Weight 78.9 kg 77.6 kg Weight/Height Weight 77.6 kg Height 6 ft General appearance: PRESENT: no acute distress, other - Vegetative. Head exam: PRESENT: atraumatic, normocephalic Eye exam: PRESENT: conjunctiva pink, EOMI, PERRLA. ABSENT: scleral icterus Ear exam: PRESENT: normal external ear exam Mouth exam: PRESENT: moist, tongue midline Neck exam: PRESENT: tracheostomy Respiratory exam: PRESENT: clear to auscultation king. ABSENT: rales, rhonchi, wheezes Cardiovascular exam: PRESENT: RRR. ABSENT: diastolic murmur, rubs, systolic murmur Pulses: PRESENT: normal dorsalis pedis pul GI/Abdominal exam: PRESENT: normal bowel sounds, soft. ABSENT: distended, guarding, mass, organolmegaly, rebound, tenderness Rectal exam: PRESENT: deferred Gentrourinary exam: PRESENT: indwelling catheter Extremities exam: PRESENT: other - Bilateral AKAs. Neurological exam: PRESENT: other - Vegatative Skin exam: PRESENT: dry, intact, warm. ABSENT: cyanosis, rash Tubes/Lines: PRESENT: Peg Tube, Other - Tracheotomy. Laboratory/Radiographs Laboratory Results: 05/09/20 03:15 05/09/20 03:15 05/09/20 05/09/20 03:15 03:15 WBC 13.5 H RBC 2.77 L Hgb 7.6 L Hct 23.3 L MCV 84 MCH 27.3 MCHC 32.5 RDW 15.5 H Plt Count 550 H Seg Neutrophils % 66.7 Sodium 141.0 Potassium 3.6 Chloride 105 Carbon Dioxide 28 Anion Gap 8 BUN 32 H Creatinine 1.95 H Est GFR ( Amer) 43 L Glucose 155 H Calcium 8.1 L 04/11/20 04/11/20 04/11/20 01:02 01:02 15:35 Creatine Kinase 743 H CK-MB (CK-2) 2.41 Troponin I 0.077 0.261 04/13/20 04/13/20 04/16/20 04:43 04:43 14:30 Creatine Kinase 540 H 213 H CK-MB (CK-2) Troponin I 0.126 Impressions: Foot X-Ray 04/09/20 20:34 IMPRESSION: Findings are consistent with osteomyelitis involving the lateral aspect of the fifth metatarsal base. Associated underlying pathologic fracture deformity. Superimposed foci of soft tissue gas at this site could indicate infection with a gas-forming organism. copyright 2010 [employer]- All Rights Reserved Chest CT 04/11/20 00:00 IMPRESSION: MILD CARDIOMEGALY. BILATERAL PLEURAL EFFUSIONS WITH FAINT ATELECTASIS. NO LOBAR INFILTRATES. Head CT 04/15/20 05:00 IMPRESSION: NORMAL BRAIN CT WITHOUT CONTRAST. SINUS DISEASE. EVIDENCE OF ACUTE STROKE: NO. Venous Doppler Study 04/20/20 00:00 IMPRESSION: NO EVIDENCE DVT OR SVT IN EITHER LEG. KUB X-Ray 04/23/20 00:00 IMPRESSION: NO RADIOGRAPHIC EVIDENCE FOR ACUTE ABDOMINAL DISEASE. Abdomen/Pelvis CT 04/25/20 00:00 IMPRESSION: Postprocedural changes from recent G-tube placement with small amounts of peritoneal free air. Contrast is present in the stomach and small bowel. Moderate bilateral pleural effusions and basilar atelectasis, increased compared with the prior study. PICC Line Insertion 04/30/20 00:00 IMPRESSION: SUCCESSFUL PLACEMENT OF A 5 FR DUAL LUMEN 42 CM PICC IN THE RIGHT BASILIC VEIN. Soft Tissue Neck CT 05/03/20 00:00 IMPRESSION: Pansinusitis Advanced left lower molar dental caries with periapical tooth root lucencies Chest X-Ray 05/03/20 06:00 IMPRESSION: No change. All labs, radiographs, diagnostic studies and EKGs were personally reviewed: Yes In addition, reports of radiographic and diagnostic studies were read: Yes Assessment and Plan - Diagnosis (1) Brain anoxic injury Is this a current diagnosis for this admission?: Yes Plan: Persistantly vegetative for foreseable future awaiting placement. (2) Cardiopulmonary arrest with successful resuscitation Is this a current diagnosis for this admission?: Yes Plan: Nearly 1 month ago. 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 At 1 month's time he qualifies for persistantly vegetative. He has respiratory insufficiency in that he has failed trach collar twice due to work of breathing. He has failed T-peice due to same. He is and has been stable on PSV with no weaning or adjustment needed. Therefore he fits criteria [place] [facility] [place] a stable trach and vent. Plan Summary: Will [place]grade [place] [facility] [place]. Critical Time Critical Time (minutes): 25 Level of Care: IMCU Anticipated discharge: Other Within: Other -: 1. The care of a critical patient is a dynamic process. This note is a repr esentative synopsis but static in nature. The timeframe for treatments given in order is not necessarily the actual time these treatments may have been done. 2. This patient requires critical care secondary to ongoing requirements for therapy not offered or safe outside the critical care environment. Transfer to a lower level of care will result in altered life or limb morbidity and mortality. 3. Multidisciplinary rounds completed. 4. ABCDE bundle addressed.
[2020-05-09] MEDS: ACETAMINOPHEN 325 MG TABLET PO PRN (10:51)
[2020-05-09] MEDS: FUROSEMIDE 20 MG TABLET PO SCH ×2 (10:51→18:36)
[2020-05-09] MEDS: SENNOSIDES/DOCUSATE 8.6-50 MG 1 EACH TABLET NG SCH (10:51)
[2020-05-09] MEDS: ASPIRIN 81 MG TABLET, CHEWABLE PEG SCH (10:51)
[2020-05-09] MEDS: METOPROLOL TARTRATE 25 MG TABLET PEG SCH ×2 (10:51→21:57)
[2020-05-09] MEDS: FLUTICASONE NASAL SPRAY 50 MCG/SPRY 120 SPRAY/16 GM NASL SCH ×2 (10:53→21:58)
[2020-05-09] MEDS: MEROPENEM 500 MG in NORMAL SALINE 50 ML IV SCH ×2 (10:53→21:59)
[2020-05-09] MEDS: VANCOMYCIN HCL 750 MG in DEXTROSE 5%-WATER 250 ML IV SCH (18:36)
[2020-05-09] MEDS: ATORVASTATIN CALCIUM 40 MG TABLET PO SCH (21:57)
[2020-05-09] MEDS: INSULIN GLARGINE,HUM.REC.ANLOG 1,000 UNIT/10 ML VIAL SUBCUT SCH (21:57)
[2020-05-10] MEDS: INSULIN REG, HUMAN 100 UNIT/ML 3 ML VIAL (PYX) SUBCUT SCH ×4 (00:06→19:51)
[2020-05-10] MEDS: HYDRALAZINE HCL 50 MG TABLET PEG SCH ×3 (05:31→21:45)
[2020-05-10] MEDS: AMLODIPINE BESYLATE 5 MG TABLET PEG SCH ×2 (05:32→19:47)
[2020-05-10] MEDS: CHLORHEXIDINE GLUCONATE 0.12% ORAL RINSE 15 ML UDC MM SCH ×3 (05:36→21:46)
[2020-05-10] MEDS: HEPARIN SOD (PORCINE) 5,000 UNIT/ML 1 ML VIAL SUBCUT SCH ×3 (05:36→21:45)
--- NOTE | 2020-05-10 09:12 | PDOC CRITICAL CARE PROG REPORT ---
General Date:: 05/10/20 Ventilator Day:: Hospital Day:: 30 Resuscitation Status: Full Code Medical Power of Soiled Linen Distributor: Amber Events in the past 12 to 24 Hours:: Remains stable without change. Review of systems relevant to events:: Neurological and pulmonary. Reason for ICU Addmission:: Post respiratorycardiac arrest, persistently vegatative. - Medications: Medications reviewed and adjusted accordingly: Yes Vasopressors:: None Sedation:: None Physical Exam Vital Signs: Temp Pulse Resp BP Pulse Ox 99.9 F 93 18 124/62 98 05/09/20 06:00 05/10/20 08:00 05/10/20 08:00 05/10/20 08:00 05/10/20 08:00 Intake & Output 05/09/20 05/10/20 05/11/20 06:59 06:59 06:59 Intake Total 1008 610 Output Total 1485 1000 Balance -477 -390 Weight 77.6 kg 74.3 kg Weight/Height Weight 74.3 kg Height 6 ft General appearance: PRESENT: no acute distress, other - Vegatative. Head exam: PRESENT: atraumatic, normocephalic Eye exam: PRESENT: conjunctiva pink Ear exam: PRESENT: normal external ear exam Mouth exam: PRESENT: moist, tongue midline, other - Tongue healing. Respiratory exam: PRESENT: clear to auscultation king. ABSENT: rales, rhonchi, wheezes Cardiovascular exam: PRESENT: RRR. ABSENT: diastolic murmur, rubs, systolic murmur GI/Abdominal exam: PRESENT: normal bowel sounds, soft, other - PEG site clean.. ABSENT: distended, guarding, mass, organolmegaly, rebound, tenderness Rectal exam: PRESENT: deferred Gentrourinary exam: PRESENT: indwelling catheter Extremities exam: PRESENT: other - Bilateral BKAs. Neurological exam: PRESENT: other - His eyes now are open spontaneously, but as before he does not track and does not respond to voice. Skin exam: PRESENT: dry, intact, warm. ABSENT: cyanosis, rash Tubes/Lines: PRESENT: Peg Tube, Other - Tracheotpo Laboratory/Radiographs Laboratory Results: 05/09/20 03:15 05/09/20 03:15 04/11/20 04/11/20 04/11/20 01:02 01:02 15:35 Creatine Kinase 743 H CK-MB (CK-2) 2.41 Troponin I 0.077 0.261 04/13/20 04/13/20 04/16/20 04:43 04:43 14:30 Creatine Kinase 540 H 213 H CK-MB (CK-2) Troponin I 0.126 Impressions: Foot X-Ray 04/09/20 20:34 IMPRESSION: Findings are consistent with osteomyelitis involving the lateral aspect of the fifth metatarsal base. Associated underlying pathologic fracture deformity. Superimposed foci of soft tissue gas at this site could indicate infection with a gas-forming organism. copyright 2010 [employer]- All Rights Reserved Chest CT 04/11/20 00:00 IMPRESSION: MILD CARDIOMEGALY. BILATERAL PLEURAL EFFUSIONS WITH FAINT ATELECTASIS. NO LOBAR INFILTRATES. Head CT 04/15/20 05:00 IMPRESSION: NORMAL BRAIN CT WITHOUT CONTRAST. SINUS DISEASE. EVIDENCE OF ACUTE STROKE: NO. Venous Doppler Study 04/20/20 00:00 IMPRESSION: NO EVIDENCE DVT OR SVT IN EITHER LEG. KUB X-Ray 04/23/20 00:00 IMPRESSION: NO RADIOGRAPHIC EVIDENCE FOR ACUTE ABDOMINAL DISEASE. Abdomen/Pelvis CT 04/25/20 00:00 IMPRESSION: Postprocedural changes from recent G-tube placement with small amounts of peritoneal free air. Contrast is present in the stomach and small bowel. Moderate bilateral pleural effusions and basilar atelectasis, increased compared with the prior study. PICC Line Insertion 04/30/20 00:00 IMPRESSION: SUCCESSFUL PLACEMENT OF A 5 FR DUAL LUMEN 42 CM PICC IN THE RIGHT BASILIC VEIN. Soft Tissue Neck CT 05/03/20 00:00 IMPRESSION: Pansinusitis Advanced left lower molar dental caries with periapical tooth root lucencies Chest X-Ray 05/03/20 06:00 IMPRESSION: No change. All labs, radiographs, diagnostic studies and EKGs were personally reviewed: Yes In addition, reports of radiographic and diagnostic studies were read: Yes Assessment and Plan - Diagnosis (1) Brain anoxic injury Is this a current diagnosis for this admission?: Yes Plan: Vegatative and awaiting [facility] placement (2) Cardiopulmonary arrest with successful resuscitation Is this a current diagnosis for this admission?: Yes Plan: No recurrence (3) Chronic kidney disease Qualifiers: Chronic kidney disease stage: stage 4 (severe) Qualified Code(s): N18.4 - Chronic kidney disease, stage 4 (severe) Is this a current diagnosis for this admission?: Yes Plan: Cr 1.9, GFR 43. Improved. 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 (5) Acute respiratory insufficiency Is this a current diagnosis for this admission?: Yes Plan: Needs minimal vent supprot. Stable. No changes. Awaiting [facility] [place] bed. Plan Summary: Awaiting both bed and placement. Critical Time Critical Time (minutes): 25 Level of Care: IMCU Anticipated discharge: SNF Within: Other -: 1. The care of a critical patient is a dynamic process. This note is a outside energy sales representatives synopsis but static in nature. The timeframe for treatments given in order is not necessarily the actual time these treatments may have been done. 2. This patient requires critical care secondary to ongoing requirements for therapy not offered or safe outside the critical care environment. Transfer to a lower level of care will result in altered life or limb morbidity and mortality. 3. Multidisciplinary rounds completed. 4. ABCDE bundle addressed.
[2020-05-10] MEDS: SENNOSIDES/DOCUSATE 8.6-50 MG 1 EACH TABLET NG SCH (09:31)
[2020-05-10] MEDS: ASPIRIN 81 MG TABLET, CHEWABLE PEG SCH (09:31)
[2020-05-10] MEDS: FERROUS SULFATE LIQUID 300 MG/5 ML UDC PEG SCH ×3 (09:31→19:51)
[2020-05-10] MEDS: METOPROLOL TARTRATE 25 MG TABLET PEG SCH ×2 (09:31→21:44)
[2020-05-10] MEDS: FUROSEMIDE 20 MG TABLET PO SCH ×2 (09:31→19:51)
[2020-05-10] MEDS: FLUTICASONE NASAL SPRAY 50 MCG/SPRY 120 SPRAY/16 GM NASL SCH ×2 (09:31→21:45)
[2020-05-10] MEDS: ATORVASTATIN CALCIUM 40 MG TABLET PO SCH (21:44)
[2020-05-10] MEDS: INSULIN GLARGINE,HUM.REC.ANLOG 1,000 UNIT/10 ML VIAL SUBCUT SCH (21:44)
[2020-05-11] MEDS: INSULIN REG, HUMAN 100 UNIT/ML 3 ML VIAL (PYX) SUBCUT SCH ×4 (00:35→18:31)
[2020-05-11] MEDS: ACETAMINOPHEN 325 MG TABLET PO PRN ×2 (01:07→11:04)
[2020-05-11 01:26] LABS: ABSOLUTE BASOPHILS # (AUTO) 0.1 10^3/uL (0.0-0.2); ABSOLUTE EOSINOPHILS # (AUTO) 0.6 10^3/uL (0.0-0.6); ABSOLUTE LYMPHOCYTES (AUTO) 2.1 10^3/uL (0.5-4.7); ABSOLUTE MONOCYTES (AUTO) 1.6 10^3/uL (0.1-1.4); ABSOLUTE NEUT (AUTO) 10.3 10^3/uL (1.7-8.2); BASOPHILS % (AUTO) 0.8 % (0-2); EOSINOPHILS % (AUTO) 4.3 % (0-6); HEMATOCRIT 23.6 % (37.9-51.0); MEAN CORPUSCULAR HEMOGLOBIN 27.4 pg (27.0-33.4); MEAN CORPUSCULAR HGB CONC 32.7 g/dL (32.0-36.0); MEAN CORPUSCULAR VOLUME 84 fl (80-97); MONOCYTES % (AUTO) 10.9 % (3-13); PLATELET COUNT 580 10^3/uL (150-450); RED BLOOD COUNT 2.82 10^6/uL (4.35-5.55); RED CELL DISTRIBUTION WIDTH 15.5 % (11.5-14.0); TOTAL CELLS COUNTED % (AUTO) 100 %; WHITE BLOOD COUNT 14.7 10^3/uL (4.0-10.5)
[2020-05-11 01:28] LABS: HEMOGLOBIN 7.7 g/dL (13.5-17.0)
[2020-05-11 01:37] LABS: ANION GAP 6 (5-19); BLOOD UREA NITROGEN 30 mg/dL (7-20); CALCIUM 8.2 mg/dL (8.4-10.2); CARBON DIOXIDE 29 mmol/L (22-30); CHLORIDE 105 mmol/L (98-107); GLUCOSE 136 mg/dL (75-110); POTASSIUM 3.3 mmol/L (3.6-5.0)
[2020-05-11] MEDS ORDERED: POTASSIUM CHLORIDE 20 MEQ PACKET NG ONE (02:25)
[2020-05-11 03:09] LABS: APPEARANCE,URINE CLEAR; BILIRUBIN,URINE NEGATIVE (NEGATIVE); COLOR,URINE YELLOW; GLUCOSE, URINE NEGATIVE (NEGATIVE); KETONES,URINE NEGATIVE (NEGATIVE); LEUKOCYTE ESTERASE,URINE NEGATIVE (NEGATIVE); NITRITE,URINE NEGATIVE (NEGATIVE); PROTEIN,URINE 30 mg/dL (NEGATIVE); UROBILINOGEN,URINE NEGATIVE mg/dL (<2.0)
[2020-05-11] MEDS: AMLODIPINE BESYLATE 5 MG TABLET PEG SCH (05:10)
[2020-05-11] MEDS: HEPARIN SOD (PORCINE) 5,000 UNIT/ML 1 ML VIAL SUBCUT SCH ×3 (05:13→21:23)
[2020-05-11] MEDS: CHLORHEXIDINE GLUCONATE 0.12% ORAL RINSE 15 ML UDC MM SCH ×3 (05:13→21:25)
[2020-05-11 10:03] LABS: ARTERIAL BLOOD BASE EXCESS 4.3 mmol/L; ARTERIAL BLOOD H2CO3 0.93 mmol/L (1.05-1.35); ARTERIAL BLOOD HCO3 26.1 mmol/L (20-24); ARTERIAL BLOOD O2 SATURATION 95.9 % (94-98); ARTERIAL BLOOD PCO2 30.9 mmHg (35-45); ARTERIAL BLOOD PH 7.54 (7.35-7.45); ARTERIAL BLOOD PO2 69.3 mmHg (80-100)
[2020-05-11 10:04] LABS: ARTERIAL BLOOD FIO2 28%
[2020-05-11] MEDS: FUROSEMIDE 20 MG TABLET PO SCH ×2 (11:02→18:31)
[2020-05-11] MEDS: FERROUS SULFATE LIQUID 300 MG/5 ML UDC PEG SCH ×3 (11:02→18:31)
[2020-05-11] MEDS: SENNOSIDES/DOCUSATE 8.6-50 MG 1 EACH TABLET NG SCH (11:03)
[2020-05-11] MEDS: METOPROLOL TARTRATE 25 MG TABLET PEG SCH ×2 (11:03→21:24)
[2020-05-11] MEDS: ASPIRIN 81 MG TABLET, CHEWABLE PEG SCH (11:04)
[2020-05-11] MEDS: FLUTICASONE NASAL SPRAY 50 MCG/SPRY 120 SPRAY/16 GM NASL SCH (11:06)
[2020-05-11 14:55] LABS: ANION GAP 8 (5-19); BLOOD UREA NITROGEN 27 mg/dL (7-20); CARBON DIOXIDE 28 mmol/L (22-30); CHLORIDE 106 mmol/L (98-107); GLUCOSE 159 mg/dL (75-110); POTASSIUM 3.7 mmol/L (3.6-5.0)
--- NOTE | 2020-05-11 17:09 | PDOC CRITICAL CARE PROG REPORT ---
General Date:: 05/11/20 ICU Day:: 30 Ventilator Day:: 30 Hospital Day:: 31 Resuscitation Status: Full Code Medical Power of Silk Spreader: Amber Events in the past 12 to 24 Hours:: Remains stable without significant neurologic change. On mechanical ventilatory support: PSV 8/8 via tracheostomy. Review of systems relevant to events:: Neurological and pulmonary. Reason for ICU Addmission:: Post respiratorycardiac arrest, persistently veg atative. - Medications: Medications reviewed and adjusted accordingly: Yes Physical Exam Vital Signs: Temp Pulse Resp BP Pulse Ox 99.7 F 98 26 H 178/85 H 100 05/11/20 03:33 05/11/20 10:36 05/11/20 11:30 05/11/20 11:30 05/11/20 12:12 Intake & Output 05/10/20 05/11/20 05/12/20 06:59 06:59 06:59 Intake Total 610 Output Total 1000 1255 203 Balance -390 -1255 -203 Weight 74.3 kg 76.7 kg Weight/Height Weight 76.7 kg Height 1.83 m General appearance: PRESENT: no acute distress, well-nourished Head exam: PRESENT: atraumatic, normocephalic Mouth exam: PRESENT: moist, tongue midline Teeth exam: PRESENT: poor dentation Neck exam: PRESENT: tracheostomy. ABSENT: carotid bruit, JVD, lymphadenopathy, thyromegaly Respiratory exam: PRESENT: clear to auscultation king. ABSENT: rales, rhonchi, wheezes Cardiovascular exam: PRESENT: RRR, tachycardia. ABSENT: diastolic murmur, rubs, systolic murmur Pulses: PRESENT: normal dorsalis pedis pul GI/Abdominal exam: PRESENT: normal bowel sounds, soft. ABSENT: distended, guarding, mass, organolmegaly, rebound, tenderness Gentrourinary exam: PRESENT: indwelling catheter Extremities exam: PRESENT: other - Bilateral AKA Neurological exam: PRESENT: aphasic, other - Open eyes spontaneously. Does not follow commands. Skin exam: PRESENT: dry, intact, warm. ABSENT: cyanosis, rash Tubes/Lines: PRESENT: Peg Tube Laboratory/Radiographs Laboratory Results: 05/11/20 01:02 05/11/20 01:14 05/11/20 05/11/20 05/11/20 01:02 01:14 02:20 WBC 14.7 H RBC 2.82 L Hgb 7.7 L Hct 23.6 L MCV 84 MCH 27.4 MCHC 32.7 RDW 15.5 H Plt Count 580 H Seg Neutrophils % 70.0 Carbonic Acid HCO3/H2CO3 Ratio ABG pH ABG pCO2 ABG pO2 ABG HCO3 ABG O2 Saturation ABG Base Excess FiO2 Sodium 139.6 Potassium 3.3 L Chloride 105 Carbon Dioxide 29 Anion Gap 6 BUN 30 H Creatinine 2.01 H Est GFR ( Amer) 42 L Glucose 136 H Calcium 8.2 L Urine Color YELLOW Urine Appearance CLEAR Urine pH 6.0 Ur Specific [place] 1.010 Urine Protein 30 H Urine Glucose (UA) NEGATIVE Urine Ketones NEGATIVE Urine Blood SMALL H Urine Nitrite NEGATIVE Ur Leukocyte Esterase NEGATIVE Urine WBC (Auto) 1 Urine RBC (Auto) 0 05/11/20 09:35 WBC RBC Hgb Hct MCV MCH MCHC RDW Plt Count Seg Neutrophils % Carbonic Acid 0.93 L HCO3/H2CO3 Ratio 28:1 ABG pH 7.54 H ABG pCO2 30.9 L ABG pO2 69.3 L ABG HCO3 26.1 H ABG O2 Saturation 95.9 ABG Base Excess 4.3 FiO2 28% Sodium Potassium Chloride Carbon Dioxide Anion Gap BUN Creatinine Est GFR ( Amer) Glucose Calcium Urine Color Urine Appearance Urine pH Ur Specific [place] Urine Protein Urine Glucose (UA) Urine Ketones Urine Blood Urine Nitrite Ur Leukocyte Esterase Urine WBC (Auto) Urine RBC (Auto) 04/11/20 04/11/20 04/11/20 01:02 01:02 15:35 Creatine Kinase 743 H CK-MB (CK-2) 2.41 Troponin I 0.077 0.261 04/13/20 04/13/20 04/16/20 04:43 04:43 14:30 Creatine Kinase 540 H 213 H CK-MB (CK-2) Troponin I 0.126 Impressions: Foot X-Ray 04/09/20 20:34 IMPRESSION: Findings are consistent with osteomyelitis involving the lateral aspect of the fifth metatarsal base. Associated underlying pathologic fracture deformity. Superimposed foci of soft tissue gas at this site could indicate infection with a gas-forming organism. copyright 2010 [employer]- All Rights Reserved Chest CT 04/11/20 00:00 IMPRESSION: MILD CARDIOMEGALY. BILATERAL PLEURAL EFFUSIONS WITH FAINT ATELECTASIS. NO LOBAR INFILTRATES. Head CT 04/15/20 05:00 IMPRESSION: NORMAL BRAIN CT WITHOUT CONTRAST. SINUS DISEASE. EVIDENCE OF ACUTE STROKE: NO. Venous Doppler Study 04/20/20 00:00 IMPRESSION: NO EVIDENCE DVT OR SVT IN EITHER LEG. KUB X-Ray 04/23/20 00:00 IMPRESSION: NO RADIOGRAPHIC EVIDENCE FOR ACUTE ABDOMINAL DISEASE. Abdomen/Pelvis CT 04/25/20 00:00 IMPRESSION: Postprocedural changes from recent G-tube placement with small amounts of peritoneal free air. Contrast is present in the stomach and small bowel. Moderate bilateral pleural effusions and basilar atelectasis, increased compared with the prior study. PICC Line Insertion 04/30/20 00:00 IMPRESSION: SUCCESSFUL PLACEMENT OF A 5 FR DUAL LUMEN 42 CM PICC IN THE RIGHT BASILIC VEIN. Soft Tissue Neck CT 05/03/20 00:00 IMPRESSION: Pansinusitis Advanced left lower molar dental caries with periapical tooth root lucencies Chest X-Ray 05/03/20 06:00 IMPRESSION: No change. All labs, radiographs, diagnostic studies and EKGs were personally reviewed: Yes In addition, reports of radiographic and diagnostic studies were read: Yes Assessment and Plan - Diagnosis (1) Acute respiratory failure with hypoxia and hypercapnia Is this a current diagnosis for this admission?: Yes Plan: Trach collar trials. Allow up to 6 hours off vent support every shift. (2) Acute on chronic renal failure Qualifiers: Acute renal failure type: with acute tubular necrosis Chronic kidney disease stage: stage 4 (severe) Qualified Code(s): N17.0 - Acute kidney failure with tubular necrosis; N18.4 - Chronic kidney disease, stage 4 (severe) Is this a current diagnosis for this admission?: Yes Plan: Creatinine 2.0 today, appears to still be slowly improving from his peak on 04/24 (creatinine 4.9). Off dialysis. Monitor urine output. Avoid nephrotoxic drugs. Renal dosing of medications. (3) Hypokalemia Is this a current diagnosis for this admission?: Yes Plan: Replete. (4) Brain anoxic injury Is this a current diagnosis for this admission?: Yes Plan: Awaiting placement. (5) Osteomyelitis of ankle or foot, right, acute Is this a current diagnosis for this admission?: Yes Plan: Status post right [id number] amputation. The wound looks very good. However, still has leukocytosis and thrombocytosis. Blood cultures pending. (6) Microcytic anemia Is this a current diagnosis for this admission?: Yes (7) Thrombocytosis Is this a current diagnosis for this admission?: Yes (8) Constipation Qualifiers: Constipation type: drug induced constipation Qualified Code(s): K59.03 - Drug induced constipation Is this a current diagnosis for this admission?: Yes Critical Time Critical Time (minutes): 60 Level of Care: ICU -: 1. The care of a critical patient is a dynamic process. This note is a sales service representative synopsis but static in nature. The timeframe for treatments given in order is not necessarily the actual time these treatments may have been done. 2. This patient requires critical care secondary to ongoing requirements for therapy not offered or safe outside the critical care environment. Transfer to a lower level of care will result in altered life or limb morbidity and mortality. 3. Multidisciplinary rounds completed. 4. ABCDE bundle addressed.
[2020-05-11] MEDS ORDERED: POTASSIUM CHLORIDE 20 MEQ PACKET PO ONE (18:00)
[2020-05-11] MEDS: INSULIN GLARGINE,HUM.REC.ANLOG 1,000 UNIT/10 ML VIAL SUBCUT SCH (21:24)
[2020-05-11] MEDS: ATORVASTATIN CALCIUM 40 MG TABLET PO SCH (21:24)
[2020-05-12] MEDS: INSULIN REG, HUMAN 100 UNIT/ML 3 ML VIAL (PYX) SUBCUT SCH ×5 (00:21→23:46)
[2020-05-12] MEDS: HEPARIN SOD (PORCINE) 5,000 UNIT/ML 1 ML VIAL SUBCUT SCH ×3 (06:05→22:01)
[2020-05-12] MEDS: CHLORHEXIDINE GLUCONATE 0.12% ORAL RINSE 15 ML UDC MM SCH ×3 (06:06→22:02)
[2020-05-12] MEDS ORDERED: NORMAL SALINE 250 ML IV PRN ×2 (08:38)
[2020-05-12] MEDS ORDERED: POTASSIUM CHLORIDE 20 MEQ PACKET PO ONE ×2 (09:30→12:30)
[2020-05-12] MEDS: FERROUS SULFATE LIQUID 300 MG/5 ML UDC PEG SCH ×2 (11:38→14:57)
[2020-05-12] MEDS: FUROSEMIDE 20 MG TABLET PO SCH ×2 (11:39→19:10)
[2020-05-12] MEDS: METOPROLOL TARTRATE 25 MG TABLET PEG SCH ×2 (11:39→22:01)
[2020-05-12] MEDS: ASPIRIN 81 MG TABLET, CHEWABLE PEG SCH (11:39)
[2020-05-12] MEDS: CEFEPIME 1 GM/D5W RTU 1 GM/50 ML RTUPB IV SCH ×2 (11:40→22:02)
[2020-05-12] MEDS: SENNOSIDES/DOCUSATE 8.6-50 MG 1 EACH TABLET NG SCH (11:41)
[2020-05-12 12:07] LABS: HEMATOCRIT 21.9 % (37.9-51.0); MEAN CORPUSCULAR HEMOGLOBIN 27.6 pg (27.0-33.4); MEAN CORPUSCULAR HGB CONC 32.9 g/dL (32.0-36.0); MEAN CORPUSCULAR VOLUME 84 fl (80-97); PLATELET COUNT 525 10^3/uL (150-450); RED BLOOD COUNT 2.61 10^6/uL (4.35-5.55); RED CELL DISTRIBUTION WIDTH 15.8 % (11.5-14.0); WHITE BLOOD COUNT 13.7 10^3/uL (4.0-10.5)
[2020-05-12 12:15] LABS: HEMOGLOBIN 7.2 g/dL (13.5-17.0)
--- NOTE | 2020-05-12 13:10 | EKG REPORT ---
SEVERITY:- ABNORMAL ECG - SINUS RHYTHM NONSPECIFIC T ABNORMALITIES, LATERAL LEADS PROLONGED QT INTERVAL : Confirmed by: Freddy Jovel 12-May-2020 13:09:48
[2020-05-12 13:22] LABS: ARTERIAL BLOOD BASE EXCESS 5.8 mmol/L; ARTERIAL BLOOD H2CO3 1.01 mmol/L (1.05-1.35); ARTERIAL BLOOD HCO3 28.1 mmol/L (20-24); ARTERIAL BLOOD O2 SATURATION 94.5 % (94-98); ARTERIAL BLOOD PCO2 33.7 mmHg (35-45); ARTERIAL BLOOD PH 7.54 (7.35-7.45); ARTERIAL BLOOD PO2 62.7 mmHg (80-100); ARTERIAL BLOOD TOTAL CO2 29.1 mmol/L (23-27)
[2020-05-12 13:23] LABS: ARTERIAL BLOOD FIO2 30%
--- NOTE | 2020-05-12 15:31 | PDOC CRITICAL CARE PROG REPORT ---
General Date:: 05/12/20 ICU Day:: Ventilator Day:: Hospital Day:: 32 Resuscitation Status: Full Code Medical Power of Apparatus Engineering Technologist: Amber Events in the past 12 to 24 Hours:: Remains stable without significant neurologic change. On mechanical ventilatory support: PSV 8/8 via tracheostomy. Tolerating trach collar trials for up to 4-6 hours. Afebrile, but WBC 13.5>14.7. Off antibiotics. Blood cultures (05/11) no growth to date. Trach aspirate 05/11: 2+ gram-negative rods. Review of systems relevant to events:: Neurologic: Anoxic encephalopathy Pulmonary: Tracheostomy, chronic ventilator dependence Musculoskeletal: Acute osteomyelitis, bilateral AKA Endocrine: Diabetes Renal: Chronic kidney disease Reason for ICU Addmission:: Post respiratorycardiac arrest, persistently vegatative. - Medications: Medications reviewed and adjusted accordingly: Yes Physical Exam Vital Signs: Temp Pulse Resp BP Pulse Ox 99.7 F 96 43 H 134/66 H 98 05/11/20 13:43 05/11/20 20:00 05/12/20 06:30 05/12/20 06:30 05/12/20 06:30 Intake & Output 05/11/20 05/12/20 05/13/20 06:59 06:59 06:59 Intake Total 390 Output Total 1255 1148 Balance -1255 -758 Weight 76.7 kg 73.2 kg Weight/Height Weight 73.2 kg Height 1.83 m General appearance: PRESENT: no acute distress, well-nourished Head exam: PRESENT: atraumatic, normocephalic Mouth exam: PRESENT: moist, tongue midline, other Teeth exam: PRESENT: poor dentation Neck exam: PRESENT: tracheostomy. ABSENT: carotid bruit, JVD, lymphadenopathy, thyromegaly Respiratory exam: PRESENT: clear to auscultation king. ABSENT: rales, rhonchi, wheezes Cardiovascular exam: PRESENT: RRR, tachycardia. ABSENT: diastolic murmur, rubs, systolic murmur GI/Abdominal exam: PRESENT: normal bowel sounds, soft. ABSENT: distended, guarding, mass, organolmegaly, rebound, tenderness Rectal exam: PRESENT: decreased rectal tone Gentrourinary exam: PRESENT: indwelling catheter Extremities exam: PRESENT: other - Bilateral AKA Neurological exam: PRESENT: aphasic, other - Opens eyes spontaneously. Does not follow commands. Skin exam: PRESENT: dry, intact, warm. ABSENT: cyanosis, rash Tubes/Lines: PRESENT: Peg Tube Laboratory/Radiographs Laboratory Results: 05/11/20 01:02 05/11/20 14:15 05/11/20 05/11/20 09:35 14:15 Carbonic Acid 0.93 L HCO3/H2CO3 Ratio 28:1 ABG pH 7.54 H ABG pCO2 30.9 L ABG pO2 69.3 L ABG HCO3 26.1 H ABG O2 Saturation 95.9 ABG Base Excess 4.3 FiO2 28% Sodium 141.8 Potassium 3.7 Chloride 106 Carbon Dioxide 28 Anion Gap 8 BUN 27 H Creatinine 1.93 H Est GFR ( Amer) 44 L Glucose 159 H Calcium 8.0 L Magnesium 2.3 04/11/20 04/11/20 04/11/20 01:02 01:02 15:35 Creatine Kinase 743 H CK-MB (CK-2) 2.41 Troponin I 0.077 0.261 04/13/20 04/13/20 04/16/20 04:43 04:43 14:30 Creatine Kinase 540 H 213 H CK-MB (CK-2) Troponin I 0.126 Impressions: Foot X-Ray 04/09/20 20:34 IMPRESSION: Findings are consistent with osteomyelitis involving the lateral aspect of the fifth metatarsal base. Associated underlying pathologic fracture deformity. Superimposed foci of soft tissue gas at this site could indicate infection with a gas-forming organism. copyright 2010 [employer]- All Rights Reserved Chest CT 04/11/20 00:00 IMPRESSION: MILD CARDIOMEGALY. BILATERAL PLEURAL EFFUSIONS WITH FAINT ATELE CTASIS. NO LOBAR INFILTRATES. Head CT 04/15/20 05:00 IMPRESSION: NORMAL BRAIN CT WITHOUT CONTRAST. SINUS DISEASE. EVIDENCE OF ACUTE STROKE: NO. Venous Doppler Study 04/20/20 00:00 IMPRESSION: NO EVIDENCE DVT OR SVT IN EITHER LEG. KUB X-Ray 04/23/20 00:00 IMPRESSION: NO RADIOGRAPHIC EVIDENCE FOR ACUTE ABDOMINAL DISEASE. Abdomen/Pelvis CT 04/25/20 00:00 IMPRESSION: Postprocedural changes from recent G-tube placement with small amounts of peritoneal free air. Contrast is present in the stomach and small bowel. Moderate bilateral pleural effusions and basilar atelectasis, increased compared with the prior study. PICC Line Insertion 04/30/20 00:00 IMPRESSION: SUCCESSFUL PLACEMENT OF A 5 FR DUAL LUMEN 42 CM PICC IN THE RIGHT BASILIC VEIN. Soft Tissue Neck CT 05/03/20 00:00 IMPRESSION: Pansinusitis Advanced left lower molar dental caries with periapical tooth root lucencies Chest X-Ray 05/03/20 06:00 IMPRESSION: No change. All labs, radiographs, diagnostic studies and EKGs were personally reviewed: Yes In addition, reports of radiographic and diagnostic studies were read: Yes Assessment and Plan - Diagnosis (1) Acute respiratory failure with hypoxia and hypercapnia Is this a current diagnosis for this admission?: Yes Plan: Trach collar trials. Allow up to 6 hours off vent support every shift. 2+ gram-negative rods in trach aspirate. Start cefepime/[place]. (2) Sepsis due to Gram negative bacteria Is this a current diagnosis for this admission?: Yes Plan: Meets sepsis criteria with gram-negative rods in tracheal aspirate, tachypnea, leukocytosis and fever. Start cefepime/[place]. (3) Acute on chronic renal failure Qualifiers: Acute renal failure type: with acute tubular necrosis Chronic kidney disease stage: stage 4 (severe) Qualified Code(s): N17.0 - Acute kidney failure with tubular necrosis; N18.4 - Chronic kidney disease, stage 4 (severe) Is this a current diagnosis for this admission?: Yes Plan: Improving, creatinine 1.9 today (peak on 04/24, Cr 4.9). Off dialysis. Monitor urine output. Avoid nephrotoxic drugs. Renal dosing of medications. (4) Hypokalemia Is this a current diagnosis for this admission?: Yes (5) Brain anoxic injury Is this a current diagnosis for this admission?: Yes (6) Osteomyelitis of ankle or foot, right, acute Is this a current diagnosis for this admission?: Yes (7) Microcytic anemia Is this a current diagnosis for this admission?: Yes Plan: Hgb 7.7 today, normocytic. Given his acute on chronic kidney disease, I will transfuse 1 unit PRBC today. Check CBC in am. (8) Thrombocytosis Is this a current diagnosis for this admission?: Yes Plan: Platelets 550>580. (9) Constipation Qualifiers: Constipation type: drug induced constipation Qualified Code(s): K59.03 - Drug induced constipation Is this a current diagnosis for this admission?: Yes Critical Time Critical Time (minutes): 60 Level of Care: ICU -: 1. The care of a critical patient is a dynamic process. This note is a wire rope sales representative synopsis but static in nature. The timeframe for treatments given in order is not necessarily the actual time these treatments may have been done. 2. This patient requires critical care secondary to ongoing requirements for therapy not offered or safe outside the critical care environment. Transfer to a lower level of care will result in altered life or limb morbidity and mortality. 3. Multidisciplinary rounds completed. 4. ABCDE bundle addressed.
--- NOTE | 2020-05-12 17:50 | RADIOLOGY REPORT (SQ) ---
EXAM DESCRIPTION: CHEST SINGLE VIEW IMAGES COMPLETED DATE/TIME: 05/12/2020 5:40 pm REASON FOR STUDY: respiratory distress COMPARISON: 05/03/2020 EXAM PARAMETERS: NUMBER OF VIEWS: One view. TECHNIQUE: Single frontal radiographic view of the chest acquired. RADIATION DOSE: NA LIMITATIONS: None. FINDINGS: LUNGS AND PLEURA: Cannot exclude mild pulmonary edema. MEDIASTINUM AND HILAR STRUCTURES: No masses. Contour normal. HEART AND VASCULAR STRUCTURES: Borderline heart size. BONES: No acute findings. HARDWARE: Tracheostomy tube. OTHER: No other significant finding. IMPRESSION: Borderline cardiomegaly. Cannot exclude mild pulmonary edema. TECHNICAL DOCUMENTATION: JOB ID: [id number] 2010 [employer] [facility]- All Rights Reserved Reading location - IP/workstation name: [email or web address]
[2020-05-12] MEDS ORDERED: TOBRAMYCIN SULFATE INJ 80 MG/2 ML VIAL NEB SCH (20:00)
[2020-05-12 20:01] LABS: HEMOGLOBIN 8.9 g/dL (13.5-17.0); MEAN CORPUSCULAR HEMOGLOBIN 29.3 pg (27.0-33.4); MEAN CORPUSCULAR HGB CONC 34.1 g/dL (32.0-36.0); MEAN CORPUSCULAR VOLUME 86 fl (80-97); PLATELET COUNT 503 10^3/uL (150-450); RED BLOOD COUNT 3.03 10^6/uL (4.35-5.55); RED CELL DISTRIBUTION WIDTH 15.9 % (11.5-14.0); WHITE BLOOD COUNT 14.1 10^3/uL (4.0-10.5)
[2020-05-12] MEDS: TOBRAMYCIN SULFATE NEB 40 MG/ML 30 ML NEB SCH (21:10)
[2020-05-12] MEDS: ALBUTEROL SULFATE 0.042% NEB (1.25 MG/3 ML) AMPUL NEB PRN (21:51)
[2020-05-12] MEDS: ATORVASTATIN CALCIUM 40 MG TABLET PO SCH (22:01)
[2020-05-12] MEDS: INSULIN GLARGINE,HUM.REC.ANLOG 1,000 UNIT/10 ML VIAL SUBCUT SCH (22:01)
[2020-05-12] MEDS: NORMAL SALINE INJ/PF 0.9% 10 ML SDV IV SCH (22:03)
[2020-05-13 04:37] LABS: ABSOLUTE BASOPHILS # (AUTO) 0.2 10^3/uL (0.0-0.2); ABSOLUTE EOSINOPHILS # (AUTO) 0.7 10^3/uL (0.0-0.6); ABSOLUTE LYMPHOCYTES (AUTO) 2.1 10^3/uL (0.5-4.7); ABSOLUTE MONOCYTES (AUTO) 2.2 10^3/uL (0.1-1.4); ABSOLUTE NEUT (AUTO) 13.3 10^3/uL (1.7-8.2); BASOPHILS % (AUTO) 1.2 % (0-2); HEMATOCRIT 27.2 % (37.9-51.0); LYMPHOCYTES % (AUTO) 11.2 % (13-45); MEAN CORPUSCULAR HEMOGLOBIN 28.4 pg (27.0-33.4); MEAN CORPUSCULAR VOLUME 86 fl (80-97); PLATELET COUNT 538 10^3/uL (150-450); RED BLOOD COUNT 3.17 10^6/uL (4.35-5.55); RED CELL DISTRIBUTION WIDTH 15.9 % (11.5-14.0); SEGMENTED NEUTROPHILS % (AUTO) 71.6 % (42-78); TOTAL CELLS COUNTED % (AUTO) 100 %; WHITE BLOOD COUNT 18.6 10^3/uL (4.0-10.5)
[2020-05-13 04:47] LABS: ANION GAP 6 (5-19); BLOOD UREA NITROGEN 28 mg/dL (7-20); CALCIUM 8.8 mg/dL (8.4-10.2); CARBON DIOXIDE 30 mmol/L (22-30); CHLORIDE 109 mmol/L (98-107); GLUCOSE 113 mg/dL (75-110); POTASSIUM 3.9 mmol/L (3.6-5.0)
[2020-05-13 05:07] LABS: ARTERIAL BLOOD BASE EXCESS 3.7 mmol/L; ARTERIAL BLOOD HCO3 27.1 mmol/L (20-24); ARTERIAL BLOOD O2 SATURATION 97.3 % (94-98); ARTERIAL BLOOD PCO2 36.5 mmHg (35-45); ARTERIAL BLOOD PH 7.49 (7.35-7.45); ARTERIAL BLOOD PO2 88.3 mmHg (80-100); ARTERIAL BLOOD TOTAL CO2 28.2 mmol/L (23-27)
[2020-05-13 05:08] LABS: ARTERIAL BLOOD FIO2 30%
[2020-05-13] MEDS: INSULIN REG, HUMAN 100 UNIT/ML 3 ML VIAL (PYX) SUBCUT SCH ×4 (05:20→23:58)
[2020-05-13] MEDS: HEPARIN SOD (PORCINE) 5,000 UNIT/ML 1 ML VIAL SUBCUT SCH ×3 (05:46→21:40)
[2020-05-13] MEDS: CHLORHEXIDINE GLUCONATE 0.12% ORAL RINSE 15 ML UDC MM SCH ×3 (05:46→21:46)
[2020-05-13] MEDS: TOBRAMYCIN SULFATE NEB 40 MG/ML 30 ML NEB SCH ×2 (08:44→20:03)
[2020-05-13] MEDS: ALBUTEROL SULFATE 0.042% NEB (1.25 MG/3 ML) AMPUL NEB PRN (08:44)
[2020-05-13] MEDS: NORMAL SALINE INJ/PF 0.9% 10 ML SDV IV SCH ×2 (10:04→21:45)
[2020-05-13] MEDS: SENNOSIDES/DOCUSATE 8.6-50 MG 1 EACH TABLET NG SCH (10:04)
[2020-05-13] MEDS: CEFEPIME 1 GM/D5W RTU 1 GM/50 ML RTUPB IV SCH ×2 (10:04→21:39)
[2020-05-13] MEDS: ACETAMINOPHEN 325 MG TABLET PO PRN (10:04)
[2020-05-13] MEDS: FUROSEMIDE 20 MG TABLET PO SCH ×2 (10:04→18:24)
[2020-05-13] MEDS: ASPIRIN 81 MG TABLET, CHEWABLE PEG SCH (10:04)
[2020-05-13] MEDS: METOPROLOL TARTRATE 25 MG TABLET PEG SCH ×2 (10:04→21:39)
--- NOTE | 2020-05-13 10:41 | PDOC CRITICAL CARE PROG REPORT ---
General Date:: 05/13/20 Hospital Day:: 33 Resuscitation Status: Full Code Medical Power of Lead Web Developer: Amber Events in the past 12 to 24 Hours:: Stable on trach collar. Review of systems relevant to events:: Neurological, pulmonary. Reason for ICU Addmission:: Post respiratorycardiac arrest, persistently vegatative. - Medications: Medications reviewed and adjusted accordingly: Yes Vasopressors:: None Sedation:: None Physical Exam Vital Signs: Temp Pulse Resp BP Pulse Ox 101.1 F H 104 H 40 H 155/75 H 96 05/13/20 08:00 05/13/20 08:00 05/13/20 08:00 05/13/20 08:00 05/13/20 08:00 Intake & Output 05/12/20 05/13/20 05/14/20 06:59 06:59 06:59 Intake Total 390 658 Output Total 1148 1385 Balance -758 -727 Weight 73.2 kg 73.4 kg Weight/Height Weight 73.4 kg Height 6 ft General appearance: PRESENT: no acute distress Head exam: PRESENT: atraumatic, normocephalic Eye exam: PRESENT: PERRLA Ear exam: PRESENT: normal external ear exam Mouth exam: PRESENT: moist, tongue midline Neck exam: PRESENT: tracheostomy Respiratory exam: PRESENT: clear to auscultation king, other. ABSENT: rales, rhonchi, wheezes Cardiovascular exam: PRESENT: RRR. ABSENT: diastolic murmur, rubs, systolic murmur Pulses: PRESENT: normal dorsalis pedis pul GI/Abdominal exam: PRESENT: normal bowel sounds, soft, other - clean.PEG site. ABSENT: distended, guarding, mass, organolmegaly, rebound, tenderness Rectal exam: PRESENT: deferred Gentrourinary exam: PRESENT: indwelling catheter Extremities exam: PRESENT: other - Bilateral AKAs Neurological exam: PRESENT: other - persistantly Vegetative. He occasionaly gets tachypnic to the 40S for no reason at times or to stimultion like bathing. This does not effect his respiratory mechanics and he calms down in time. Skin exam: PRESENT: dry, intact, warm. ABSENT: cyanosis, rash Tubes/Lines: PRESENT: Peg Tube, Other - Tracheotomy Laboratory/Radiographs Laboratory Results: 05/13/20 04:29 05/13/20 04:29 05/12/20 05/12/20 05/12/20 09:32 11:47 13:00 WBC 13.7 H RBC 2.61 L Hgb 7.2 L Hct 21.9 L MCV 84 MCH 27.6 MCHC 32.9 RDW 15.8 H Plt Count 525 H Seg Neutrophils % Carbonic Acid 1.01 L HCO3/H2CO3 Ratio 27:1 ABG pH 7.54 H ABG pCO2 33.7 L ABG pO2 62.7 L ABG HCO3 28.1 H ABG O2 Saturation 94.5 ABG Base Excess 5.8 FiO2 30% Sodium Potassium Chloride Carbon Dioxide Anion Gap BUN Creatinine Est GFR ( Amer) Glucose Calcium Phosphorus Magnesium Blood Type A POSITIVE Antibody Screen NEGATIVE 05/12/20 05/13/20 05/13/20 19:45 04:29 04:29 WBC 14.1 H 18.6 H RBC 3.03 L 3.17 L Hgb 8.9 L 9.0 L Hct 26.0 L 27.2 L MCV 86 86 MCH 29.3 28.4 MCHC 34.1 33.0 RDW 15.9 H 15.9 H Plt Count 503 H 538 H Seg Neutrophils % 71.6 Carbonic Acid HCO3/H2CO3 Ratio ABG pH ABG pCO2 ABG pO2 ABG HCO3 ABG O2 Saturation ABG Base Excess FiO2 Sodium 144.8 Potassium 3.9 Chloride 109 H Carbon Dioxide 30 Anion Gap 6 BUN 28 H Creatinine 1.93 H Est GFR ( Amer) 44 L Glucose 113 H Calcium 8.8 Phosphorus 4.0 Magnesium 2.4 H Blood Type Antibody Screen 05/13/20 05:00 WBC RBC Hgb Hct MCV MCH MCHC RDW Plt Count Seg Neutrophils % Carbonic Acid 1.10 HCO3/H2CO3 Ratio 24:1 ABG pH 7.49 H ABG pCO2 36.5 ABG pO2 88.3 ABG HCO3 27.1 H ABG O2 Saturation 97.3 ABG Base Excess 3.7 FiO2 30% Sodium Potassium Chloride Carbon Dioxide Anion Gap BUN Creatinine Est GFR ( Amer) Glucose Calcium Phosphorus Magnesium Blood Type Antibody Screen 05/11/20 02:27 Tracheal Aspirate Sputum Culture - Final Pseudomonas Aeruginosa Normal Adenike Absent 04/11/20 04/11/20 04/11/20 01:02 01:02 15:35 Creatine Kinase 743 H CK-MB (CK-2) 2.41 Troponin I 0.077 0.261 04/13/20 04/13/20 04/16/20 04:43 04:43 14:30 Creatine Kinase 540 H 213 H CK-MB (CK-2) Troponin I 0.126 Impressions: Foot X-Ray 04/09/20 20:34 IMPRESSION: Findings are consistent with osteomyelitis involving the lateral aspect of the fifth metatarsal base. Associated underlying pathologic fracture deformity. Superimposed foci of soft tissue gas at this site could indicate infection with a gas-forming organism. copyright 2010 [employer]- All Rights Reserved Chest CT 04/11/20 00:00 IMPRESSION: MILD CARDIOMEGALY. BILATERAL PLEURAL EFFUSIONS WITH FAINT ATELECTASIS. NO LOBAR INFILTRATES. Head CT 04/15/20 05:00 IMPRESSION: NORMAL BRAIN CT WITHOUT CONTRAST. SINUS DISEASE. EVIDENCE OF ACUTE STROKE: NO. Venous Doppler Study 04/20/20 00:00 IMPRESSION: NO EVIDENCE DVT OR SVT IN EITHER LEG. KUB X-Ray 04/23/20 00:00 IMPRESSION: NO RADIOGRAPHIC EVIDENCE FOR ACUTE ABDOMINAL DISEASE. Abdomen/Pelvis CT 04/25/20 00:00 IMPRESSION: Postprocedural changes from recent G-tube placement with small am ounts of peritoneal free air. Contrast is present in the stomach and small bowel. Moderate bilateral pleural effusions and basilar atelectasis, increased compared with the prior study. PICC Line Insertion 04/30/20 00:00 IMPRESSION: SUCCESSFUL PLACEMENT OF A 5 FR DUAL LUMEN 42 CM PICC IN THE RIGHT BASILIC VEIN. Soft Tissue Neck CT 05/03/20 00:00 IMPRESSION: Pansinusitis Advanced left lower molar dental caries with periapical tooth root lucencies Chest X-Ray 05/12/20 00:00 IMPRESSION: Borderline cardiomegaly. Cannot exclude mild pulmonary edema. All labs, radiographs, diagnostic studies and EKGs were personally reviewed: Yes In addition, reports of radiographic and diagnostic studies were read: Yes Assessment and Plan - Diagnosis (1) Brain anoxic injury Is this a current diagnosis for this admission?: Yes Plan: This will be permanent or at least predatory animal exterminator. (2) Cardiopulmonary arrest with successful resuscitation Is this a current diagnosis for this admission?: Yes Plan: Unfortunately this has left him with a devastating neurologic injury (3) Chronic kidney disease Qualifiers: Chronic kidney disease stage: stage 2 (mild) Qualified Code(s): N18.2 - Chronic kidney disease, stage 2 (mild) Is this a current diagnosis for this admission?: Yes Plan: Still present but improved. 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 (5) Acute respiratory insufficiency Is this a current diagnosis for this admission?: Yes Plan: This too has improved enough for him to be on trach collar continuously. Plan Summary: We are awaiting word on placement. His being off the ventilator may open more opportunities. Critical Time Critical Time (minutes): 30 Level of Care: IMCU Anticipated discharge: SNF Within: Other -: 1. The care of a critical patient is a dynamic process. This note is a rep resentative synopsis but static in nature. The timeframe for treatments given in order is not necessarily the actual time these treatments may have been done. 2. This patient requires critical care secondary to ongoing requirements for therapy not offered or safe outside the critical care environment. Transfer to a lower level of care will result in altered life or limb morbidity and mortality. 3. Multidisciplinary rounds completed. 4. ABCDE bundle addressed.
[2020-05-13] MEDS: LORAZEPAM INJ 2 MG/1 ML VIAL IV PRN ×2 (11:26→20:38)
[2020-05-13] MEDS: HYDRALAZINE HCL INJ/PF 20 MG/1 ML SDV IV PRN (12:47)
[2020-05-13] MEDS ORDERED: IPRATROPIUM/ALBUTEROL 0.5-2.5 MG/3 ML AMPUL NEB ONE (19:30)
[2020-05-13] MEDS: ATORVASTATIN CALCIUM 40 MG TABLET PO SCH (21:39)
[2020-05-13] MEDS: INSULIN GLARGINE,HUM.REC.ANLOG 1,000 UNIT/10 ML VIAL SUBCUT SCH (21:45)
[2020-05-14] MEDS ORDERED: RINGERS SOLUTION,LACTATED 500 ML IV ONE (04:20)
[2020-05-14 04:42] LABS: ABSOLUTE BASOPHILS # (AUTO) 0.2 10^3/uL (0.0-0.2); ABSOLUTE EOSINOPHILS # (AUTO) 0.8 10^3/uL (0.0-0.6); ABSOLUTE LYMPHOCYTES (AUTO) 2.3 10^3/uL (0.5-4.7); ABSOLUTE MONOCYTES (AUTO) 2.2 10^3/uL (0.1-1.4); ABSOLUTE NEUT (AUTO) 13.4 10^3/uL (1.7-8.2); BASOPHILS % (AUTO) 1.3 % (0-2); EOSINOPHILS % (AUTO) 4.3 % (0-6); HEMATOCRIT 27.1 % (37.9-51.0); MEAN CORPUSCULAR HEMOGLOBIN 28.5 pg (27.0-33.4); MEAN CORPUSCULAR HGB CONC 33.1 g/dL (32.0-36.0); MEAN CORPUSCULAR VOLUME 86 fl (80-97); MONOCYTES % (AUTO) 11.7 % (3-13); PLATELET COUNT 509 10^3/uL (150-450); RED BLOOD COUNT 3.15 10^6/uL (4.35-5.55); RED CELL DISTRIBUTION WIDTH 16.2 % (11.5-14.0); SEGMENTED NEUTROPHILS % (AUTO) 70.7 % (42-78); TOTAL CELLS COUNTED % (AUTO) 100 %; WHITE BLOOD COUNT 18.9 10^3/uL (4.0-10.5)
[2020-05-14] MEDS: CHLORHEXIDINE GLUCONATE 0.12% ORAL RINSE 15 ML UDC MM SCH ×3 (05:53→21:21)
[2020-05-14] MEDS: INSULIN REG, HUMAN 100 UNIT/ML 3 ML VIAL (PYX) SUBCUT SCH ×3 (05:53→18:26)
[2020-05-14] MEDS: HEPARIN SOD (PORCINE) 5,000 UNIT/ML 1 ML VIAL SUBCUT SCH ×3 (05:53→21:21)
--- NOTE | 2020-05-14 08:05 | PDOC CRITICAL CARE PROG REPORT ---
General Date:: 05/14/20 Ventilator Day:: 32 Hospital Day:: 34 Resuscitation Status: Full Code Medical Power of Creel Selector: Amber Events in the past 12 to 24 Hours:: He had some respiratory fatigue and is back on PSV as before. Review of systems relevant to events:: Neurologic and respiratory. Reason for ICU Addmission:: Post respiratorycardiac arrest, persistently vegatative. - Medications: Medications reviewed and adjusted accordingly: Yes Vasopressors:: None Sedation:: None Physical Exam Vital Signs: Temp Pulse Resp BP Pulse Ox 100.2 F 98 18 118/72 98 05/14/20 03:30 05/14/20 03:30 05/14/20 06:00 05/14/20 05:49 05/14/20 06:00 Intake & Output 05/13/20 05/14/20 05/15/20 06:59 06:59 06:59 Intake Total 658 50 Output Total 1385 815 Balance -727 -765 Weight 73.4 kg 73.5 kg Weight/Height Weight 73.5 kg Height 6 ft General appearance: PRESENT: thin Head exam: PRESENT: atraumatic, normocephalic Eye exam: PRESENT: PERRLA Ear exam: PRESENT: normal external ear exam Mouth exam: PRESENT: moist, tongue midline Neck exam: PRESENT: tracheostomy Respiratory exam: PRESENT: clear to auscultation king. ABSENT: rales, rhonchi, wheezes Cardiovascular exam: PRESENT: tachycardia GI/Abdominal exam: PRESENT: normal bowel sounds, soft, other - PEG site clean.. ABSENT: distended, guarding, mass, organolmegaly, rebound, tenderness Rectal exam: PRESENT: deferred Gentrourinary exam: PRESENT: indwelling catheter Extremities exam: PRESENT: other - Bilateral AKAs Neurological exam: PRESENT: other - Vegatative Skin exam: PRESENT: dry, intact, warm. ABSENT: cyanosis, rash Tubes/Lines: PRESENT: Peg Tube, Other - Tracheotomy Laboratory/Radiographs Laboratory Results: 05/14/20 04:30 05/13/20 04:29 05/14/20 04:30 WBC 18.9 H RBC 3.15 L Hgb 9.0 L Hct 27.1 L MCV 86 MCH 28.5 MCHC 33.1 RDW 16.2 H Plt Count 509 H Seg Neutrophils % 70.7 05/11/20 02:27 Tracheal Aspirate Sputum Culture - Final Pseudomonas Aeruginosa Normal Adenike Absent 04/11/20 04/11/20 04/11/20 01:02 01:02 15:35 Creatine Kinase 743 H CK-MB (CK-2) 2.41 Troponin I 0.077 0.261 04/13/20 04/13/20 04/16/20 04:43 04:43 14:30 Creatine Kinase 540 H 213 H CK-MB (CK-2) Troponin I 0.126 Impressions: Foot X-Ray 04/09/20 20:34 IMPRESSION: Findings are consistent with osteomyelitis involving the lateral aspect of the fifth metatarsal base. Associated underlying pathologic fracture deformity. Superimposed foci of soft tissue gas at this site could indicate infection with a gas-forming organism. copyright 2010 [employer]- All Rights Reserved Chest CT 04/11/20 00:00 IMPRESSION: MILD CARDIOMEGALY. BILATERAL PLEURAL EFFUSIONS WITH FAINT ATELECTASIS. NO LOBAR INFILTRATES. Head CT 04/15/20 05:00 IMPRESSION: NORMAL BRAIN CT WITHOUT CONTRAST. SINUS DISEASE. EVIDENCE OF ACUTE STROKE: NO. Venous Doppler Study 04/20/20 00:00 IMPRESSION: NO EVIDENCE DVT OR SVT IN EITHER LEG. KUB X-Ray 04/23/20 00:00 IMPRESSION: NO RADIOGRAPHIC EVIDENCE FOR ACUTE ABDOMINAL DISEASE. Abdomen/Pelvis CT 04/25/20 00:00 IMPRESSION: Postprocedural changes from recent G-tube placement with small amounts of peritoneal free air. Contrast is present in the stomach and small bowel. Moderate bilateral pleural effusions and basilar atelectasis, increased compared with the prior study. PICC Line Insertion 04/30/20 00:00 IMPRESSION: SUCCESSFUL PLACEMENT OF A 5 FR DUAL LUMEN 42 CM PICC IN THE RIGHT BASILIC VEIN. Soft Tissue Neck CT 05/03/20 00:00 IMPRESSION: Pansinusitis Advanced left lower molar dental caries with periapical tooth root lucencies Chest X-Ray 05/12/20 00:00 IMPRESSION: Borderline cardiomegaly. Cannot exclude mild pulmonary edema. All labs, radiographs, diagnostic studies and EKGs were personally reviewed: Yes In addition, reports of radiographic and diagnostic studies were read: Yes Assessment and Plan - Diagnosis (1) Brain anoxic injury Is this a current diagnosis for this admission?: Yes Plan: Persistently vegatative and will need placement (2) Cardiopulmonary arrest with successful resuscitation Is this a current diagnosis for this admission?: Yes (3) Chronic kidney disease Qualifiers: Chronic kidney disease stage: stage 2 (mild) Qualified Code(s): N18.2 - Chronic kidney disease, stage 2 (mild) Is this a current diagnosis for this admission?: Yes Plan: No change (4) Diabetes Qualifiers: Diabetes mellitus type: type 1 Diabetes mellitus complication status: with circulatory complication Diabetes mellitus complication detail: with peripheral angiopathy with gangrene Qualified Code(s): E10.52 - 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 He has respiratory insufficieny and has once again failed trach collar. He has demonstrated that he needs to be on PSV. Plan Summary: His BP and HR are improved on PSV as well. Needs placement. Critical Time Critical Time (minutes): 25 Level of Care: IMCU Anticipated discharge: Other Within: Other -: 1. The care of a critical patient is a dynamic process. This note is a passenger relations representative synopsis but static in nature. The timeframe for treatments given in order is not necessarily the actual time these treatments may have been done. 2. This patient requires critical care secondary to ongoing requirements for therapy not offered or safe outside the critical care environment. Transfer to a lower level of care will result in altered life or limb morbidity and mortality. 3. Multidisciplinary rounds completed. 4. ABCDE bundle addressed.
[2020-05-14] MEDS: ALBUTEROL SULFATE 0.042% NEB (1.25 MG/3 ML) AMPUL NEB PRN ×2 (08:15→20:19)
[2020-05-14] MEDS: TOBRAMYCIN SULFATE NEB 40 MG/ML 30 ML NEB SCH ×2 (08:15→20:19)
[2020-05-14] MEDS: CEFEPIME 1 GM/D5W RTU 1 GM/50 ML RTUPB IV SCH ×2 (09:55→21:22)
[2020-05-14] MEDS: NORMAL SALINE INJ/PF 0.9% 10 ML SDV IV SCH ×2 (09:55→21:21)
[2020-05-14] MEDS: ASPIRIN 81 MG TABLET, CHEWABLE PEG SCH (09:55)
[2020-05-14] MEDS: SENNOSIDES/DOCUSATE 8.6-50 MG 1 EACH TABLET NG SCH (09:55)
[2020-05-14] MEDS: ATORVASTATIN CALCIUM 40 MG TABLET PO SCH (21:21)
[2020-05-14] MEDS: INSULIN GLARGINE,HUM.REC.ANLOG 1,000 UNIT/10 ML VIAL SUBCUT SCH (22:13)
[2020-05-15] MEDS: INSULIN REG, HUMAN 100 UNIT/ML 3 ML VIAL (PYX) SUBCUT SCH ×4 (00:40→18:24)
[2020-05-15] MEDS: HEPARIN SOD (PORCINE) 5,000 UNIT/ML 1 ML VIAL SUBCUT SCH ×3 (06:41→22:03)
[2020-05-15] MEDS: CHLORHEXIDINE GLUCONATE 0.12% ORAL RINSE 15 ML UDC MM SCH ×3 (06:41→22:05)
--- NOTE | 2020-05-15 08:01 | PDOC CRITICAL CARE PROG REPORT ---
General Date:: 05/15/20 Ventilator Day:: 34 Hospital Day:: 35 Resuscitation Status: Full Code Medical Power of Refund Clerk: Amber Blandon Events in the past 12 to 24 Hours:: Stable Review of systems relevant to events:: Neurological, repiratory. Reason for ICU Addmission:: Post respiratorycardiac arrest, persistently vegatative. - Medications: Medications reviewed and adjusted accordingly: Yes Vasopressors:: None Sedation:: None Physical Exam Vital Signs: Temp Pulse Resp BP Pulse Ox 100.1 F 122 H 13 91/62 L 100 05/14/20 20:00 05/14/20 20:19 05/15/20 06:00 05/15/20 05:12 05/15/20 06:00 Intake & Output 05/14/20 05/15/20 05/16/20 06:59 06:59 06:59 Intake Total 100 50 Output Total 815 390 Balance -715 -340 Weight 73.5 kg 74.6 kg Weight/Height Weight 74.6 kg Height 6 ft General appearance: PRESENT: no acute distress Head exam: PRESENT: atraumatic, normocephalic Eye exam: PRESENT: PERRLA Ear exam: PRESENT: normal external ear exam Mouth exam: PRESENT: moist, tongue midline Neck exam: PRESENT: tracheostomy Respiratory exam: PRESENT: clear to auscultation king. ABSENT: rales, rhonchi, wheezes Cardiovascular exam: PRESENT: RRR. ABSENT: diastolic murmur, rubs, systolic murmur GI/Abdominal exam: PRESENT: normal bowel sounds, soft, other - PEG site clean.. ABSENT: distended, guarding, mass, organolmegaly, rebound, tenderness Rectal exam: PRESENT: deferred Extremities exam: PRESENT: other - Bilteral AKAs. Recent suture line clean on R. Neurological exam: PRESENT: other - Persistantly vegetative. Skin exam: PRESENT: dry, intact, warm. ABSENT: cyanosis, rash Tubes/Lines: PRESENT: Peg Tube, Other - Tracheotoimy Laboratory/Radiographs Laboratory Results: 05/14/20 04:30 05/13/20 04:29 05/12/20 12:30 Trach Site Gram Stain - Final 05/12/20 12:30 Trach Site Wound Culture - Final Pseudomonas Aeruginosa 05/24/20 05/24/20 05/24/20 01:02 01:02 15:35 Creatine Kinase 743 H CK-MB (CK-2) 2.41 Troponin I 0.077 0.261 04/13/20 04/13/20 04/16/20 04:43 04:43 14:30 Creatine Kinase 540 H 213 H CK-MB (CK-2) Troponin I 0.126 Impressions: Foot X-Ray 04/09/20 20:34 IMPRESSION: Findings are consistent with osteomyelitis involving the lateral aspect of the fifth metatarsal base. Associated underlying pathologic fracture deformity. Superimposed foci of soft tissue gas at this site could indicate infection with a gas-forming organism. copyright 2010 [employer]- All Rights Reserved Chest CT 04/11/20 00:00 IMPRESSION: MILD CARDIOMEGALY. BILATERAL PLEURAL EFFUSIONS WITH FAINT ATELECTASIS. NO LOBAR INFILTRATES. Head CT 04/15/20 05:00 IMPRESSION: NORMAL BRAIN CT WITHOUT CONTRAST. SINUS DISEASE. EVIDENCE OF ACUTE STROKE: NO. Venous Doppler Study 04/20/20 00:00 IMPRESSION: NO EVIDENCE DVT OR SVT IN EITHER LEG. KUB X-Ray 04/23/20 00:00 IMPRESSION: NO RADIOGRAPHIC EVIDENCE FOR ACUTE ABDOMINAL DISEASE. Abdomen/Pelvis CT 04/25/20 00:00 IMPRESSION: Postprocedural changes from recent G-tube placement with small amounts of peritoneal free air. Contrast is present in the stomach and small bowel. Moderate bilateral pleural effusions and basilar atelectasis, increased compared with the prior study. PICC Line Insertion 04/30/20 00:00 IMPRESSION: SUCCESSFUL PLACEMENT OF A 5 FR DUAL LUMEN 42 CM PICC IN THE RIGHT BASILIC VEIN. Soft Tissue Neck CT 05/03/20 00:00 IMPRESSION: Pansinusitis Advanced left lower molar dental caries with periapical tooth root lucencies Chest X-Ray 05/12/20 00:00 IMPRESSION: Borderline cardiomegaly. Cannot exclude mild pulmonary edema. All labs, radiographs, diagnostic studies and EKGs were personally reviewed: Yes In addition, reports of radiographic and diagnostic studies were read: Yes Assessment and Plan - Diagnosis (1) Brain anoxic injury Is this a current diagnosis for this admission?: Yes Plan: No change (2) Cardiopulmonary arrest with successful resuscitation Is this a current diagnosis for this admission?: Yes Plan: No recurrence (3) Chronic kidney disease Qualifiers: Chronic kidney disease stage: stage 2 (mild) Qualified Code(s): N18.2 - Chronic kidney disease, stage 2 (mild) Is this a current diagnosis for this admission?: Yes Plan: Resolved (4) Diabetes Qualifiers: Diabetes mellitus type: type 1 Diabetes mellitus complication status: with circulatory complication Diabetes mellitus complication detail: with peripheral angiopathy with gangrene Qualified Code(s): E10.52 - Type 1 diabetes mellitus with diabetic peripheral angiopathy with gangrene Is this a current diagnosis for this admission?: Yes Plan: Controlled. (5) Acute respiratory insufficiency Is this a current diagnosis for this admission?: Yes Plan: He is quite stable on PSV 12/8 with no changes. Plan Summary: Awaiting placement Critical Time Critical Time (minutes): 20 Level of Care: IMCU Anticipated discharge: SNF Within: Other -: 1. The care of a critical patient is a dynamic process. This note is a inside sales account representative synopsis but static in nature. The timeframe for treatments given in order is not necessarily the actual time these treatments may have been done. 2. This patient requires critical care secondary to ongoing requirements for therapy not offered or safe outside the critical care environment. Transfer to a lower level of care will result in altered life or limb morbidity and mortality. 3. Multidisciplinary rounds completed. 4. ABCDE bundle addressed.
[2020-05-15] MEDS: ALBUTEROL SULFATE 0.042% NEB (1.25 MG/3 ML) AMPUL NEB PRN ×2 (08:48→19:40)
[2020-05-15] MEDS: TOBRAMYCIN SULFATE NEB 40 MG/ML 30 ML NEB SCH ×2 (08:48→19:40)
[2020-05-15] MEDS: CEFEPIME 1 GM/D5W RTU 1 GM/50 ML RTUPB IV SCH ×2 (10:34→22:00)
[2020-05-15] MEDS: ACETAMINOPHEN 325 MG TABLET PO PRN ×2 (10:35→22:00)
[2020-05-15] MEDS: ASPIRIN 81 MG TABLET, CHEWABLE PEG SCH (10:35)
[2020-05-15] MEDS: NORMAL SALINE INJ/PF 0.9% 10 ML SDV IV SCH ×2 (10:40→22:05)
[2020-05-15] MEDS: SENNOSIDES/DOCUSATE 8.6-50 MG 1 EACH TABLET NG SCH (10:42)
[2020-05-15] MEDS: ATORVASTATIN CALCIUM 40 MG TABLET PO SCH (22:00)
[2020-05-15] MEDS: INSULIN GLARGINE,HUM.REC.ANLOG 1,000 UNIT/10 ML VIAL SUBCUT SCH (22:03)
[2020-05-16] MEDS: INSULIN REG, HUMAN 100 UNIT/ML 3 ML VIAL (PYX) SUBCUT SCH ×5 (00:15→23:42)
[2020-05-16] MEDS: HEPARIN SOD (PORCINE) 5,000 UNIT/ML 1 ML VIAL SUBCUT SCH ×3 (05:16→21:04)
[2020-05-16] MEDS: CHLORHEXIDINE GLUCONATE 0.12% ORAL RINSE 15 ML UDC MM SCH ×3 (05:17→21:04)
--- NOTE | 2020-05-16 08:17 | RADIOLOGY REPORT (SQ) ---
EXAM DESCRIPTION: CHEST SINGLE VIEW IMAGES COMPLETED DATE/TIME: 05/16/2020 8:05 am REASON FOR STUDY: Increased need for PSV, trach bleeding. COMPARISON: 07/12/2020 FINDINGS: One-view chest AP portable upright. Since the prior study, infiltrate/edema have developed in the upper lung jacobs, particularly in the extreme apices left greater than right. No pneumothorax. Tracheostomy tube and right PICC line remain in place. TECHNICAL DOCUMENTATION: JOB ID: [id number] Reading location - IP/workstation name: [email or web address]
[2020-05-16] MEDS: ALBUTEROL SULFATE 0.042% NEB (1.25 MG/3 ML) AMPUL NEB PRN (08:48)
[2020-05-16] MEDS: TOBRAMYCIN SULFATE NEB 40 MG/ML 30 ML NEB SCH (08:48)
[2020-05-16] MEDS: SENNOSIDES/DOCUSATE 8.6-50 MG 1 EACH TABLET NG SCH (09:59)
[2020-05-16] MEDS: CEFEPIME 1 GM/D5W RTU 1 GM/50 ML RTUPB IV SCH ×2 (09:59→21:05)
[2020-05-16] MEDS: ACETAMINOPHEN 325 MG TABLET PO PRN (09:59)
[2020-05-16] MEDS: ASPIRIN 81 MG TABLET, CHEWABLE PEG SCH (09:59)
[2020-05-16] MEDS: NORMAL SALINE INJ/PF 0.9% 10 ML SDV IV SCH ×2 (10:00→21:05)
--- NOTE | 2020-05-16 10:08 | PDOC CRITICAL CARE PROG REPORT ---
General Date:: 05/16/20 Ventilator Day:: 34 Hospital Day:: 35 Resuscitation Status: Full Code Medical Power of Paste Thinner: Amber Events in the past 12 to 24 Hours:: He is developing new infiltrate in ORALIA Review of systems relevant to events:: Neurologic, pulmonary. Reason for ICU Addmission:: Post respiratorycardiac arrest, persistently vegatative. - Medications: Medications reviewed and adjusted accordingly: Yes Vasopressors:: None Sedation:: None Physical Exam Vital Signs: Temp Pulse Resp BP Pulse Ox 100.2 F 91 20 98/61 L 95 05/16/20 07:14 05/16/20 08:00 05/16/20 07:14 05/16/20 07:14 05/16/20 07:14 Intake & Output 05/15/20 05/16/20 05/17/20 06:59 06:59 06:59 Intake Total 100 580 Output Total 390 485 Balance -290 95 Weight 74.6 kg 73 kg Weight/Height Weight 73 kg Height 6 ft General appearance: PRESENT: no acute distress Head exam: PRESENT: atraumatic, normocephalic Eye exam: PRESENT: conjunctiva pink, EOMI, PERRLA. ABSENT: scleral icterus Ear exam: PRESENT: normal external ear exam Mouth exam: PRESENT: moist, tongue midline Neck exam: PRESENT: tracheostomy, other - Some blood tinged sputum Respiratory exam: PRESENT: clear to auscultation king. ABSENT: rales, rhonchi, wheezes Cardiovascular exam: PRESENT: RRR, tachycardia. ABSENT: diastolic murmur, rubs, systolic murmur Vascular exam: PRESENT: normal capillary refill GI/Abdominal exam: PRESENT: normal bowel sounds, soft. ABSENT: distended, guarding, mass, organolmegaly, rebound, tenderness Rectal exam: PRESENT: deferred Gentrourinary exam: PRESENT: indwelling catheter Extremities exam: PRESENT: other - Bilateral AKAs. Musculoskeletal exam: PRESENT: normal inspection Neurological exam: PRESENT: other - Vegetative. Skin exam: PRESENT: dry, intact, warm. ABSENT: cyanosis, rash Tubes/Lines: PRESENT: Peg Tube, Other - Tracheotomy Laboratory/Radiographs Laboratory Results: 05/14/20 04:30 05/13/20 04:29 05/11/20 03:13 Blood Blood Culture - Final NO GROWTH IN 5 DAYS 05/11/20 02:29 Blood Blood Culture - Final NO GROWTH IN 5 DAYS 05/11/20 02:27 Tracheal Aspirate Gram Stain - Final 05/11/20 02:27 Tracheal Aspirate Sputum Culture - Final Pseudomonas Aeruginosa Normal Adenike Absent 04/11/20 04/11/20 04/11/20 01:02 01:02 15:35 Creatine Kinase 743 H CK-MB (CK-2) 2.41 Troponin I 0.077 0.261 04/13/20 04/13/20 04/16/20 04:43 04:43 14:30 Creatine Kinase 540 H 213 H CK-MB (CK-2) Troponin I 0.126 Impressions: Foot X-Ray 04/09/20 20:34 IMPRESSION: Findings are consistent with osteomyelitis involving the lateral aspect of the fifth metatarsal base. Associated underlying pathologic fracture deformity. Superimposed foci of soft tissue gas at this site could indicate infection with a gas-forming organism. copyright 2010 [employer]- All Rights Reserved Chest CT 04/11/20 00:00 IMPRESSION: MILD CARDIOMEGALY. BILATERAL PLEURAL EFFUSIONS WITH FAINT ATELECTASIS. NO LOBAR INFILTRATES. Head CT 04/15/20 05:00 IMPRESSION: NORMAL BRAIN CT WITHOUT CONTRAST. SINUS DISEASE. EVIDENCE OF ACUTE STROKE: NO. Venous Doppler Study 04/20/20 00:00 IMPRESSION: NO EVIDENCE DVT OR SVT IN EITHER LEG. KUB X-Ray 04/23/20 00:00 IMPRESSION: NO RADIOGRAPHIC EVIDENCE FOR ACUTE ABDOMINAL DISEASE. Abdomen/Pelvis CT 04/25/20 00:00 IMPRESSION: Postprocedural changes from recent G-tube placement with small amounts of peritoneal free air. Contrast is present in the stomach and small bowel. Moderate bilateral pleural effusions and basilar atelectasis, increased compared with the prior study. PICC Line Insertion 04/30/20 00:00 IMPRESSION: SUCCESSFUL PLACEMENT OF A 5 FR DUAL LUMEN 42 CM PICC IN THE RIGHT BASILIC VEIN. Soft Tissue Neck CT 05/03/20 00:00 IMPRESSION: Pansinusitis Advanced left lower molar dental caries with periapical tooth root lucencies All labs, radiographs, diagnostic studies and EKGs were personally reviewed: Yes In addition, reports of radiographic and diagnostic studies were read: Yes Assessment and Plan - Diagnosis (1) Brain anoxic injury Is this a current diagnosis for this admission?: Yes Plan: Consequence of his arrest. (2) Cardiopulmonary arrest with successful resuscitation Is this a current diagnosis for this admission?: Yes Plan: No recurrance (3) Chronic kidney disease Qualifiers: Chronic kidney disease stage: stage 2 (mild) Qualified Code(s): N18.2 - Chronic kidney disease, stage 2 (mild) Is this a current diagnosis for this admission?: Yes Plan: GFR 44. Labs improved (4) Diabetes Qualifiers: Diabetes mellitus type: type 1 Diabetes mellitus complication status: with circulatory complication Diabetes mellitus complication detail: with peripheral angiopathy with gangrene Qualified Code(s): E10.52 - Type 1 diabetes mellitus with diabetic peripheral angiopathy with gangrene Is this a current diagnosis for this admission?: Yes Plan: Controlled (5) Acute respiratory insufficiency Is this a current diagnosis for this admission?: Yes Plan: Still occassionaly gets high RR but calms down. (6) VAP (ventilator-associated pneumonia) Is this a current diagnosis for this admission?: Yes Plan: He has increasing WBC, more frequent tachypnea, bloody secretions, fever and new ORALIA infiltrate since 05/12. Not surprising given his immobile status and i nability to get him off the vent for over a month.eeds an endotracheal sputum culture, new antibiotics. Plan Summary: Start vancomycin taking not of his improving renal function. Critical Time Critical Time (minutes): 35 Level of Care: IMCU Anticipated discharge: SNF Within: Other -: 1. The care of a critical patient is a dynamic process. This note is a pharmaceutical representative synopsis but static in nature. The timeframe for treatments given in order is not necessarily the actual time these treatments may have been done. 2. This patient requires critical care secondary to ongoing requirements for therapy not offered or safe outside the critical care environment. Transfer to a lower level of care will result in altered life or limb morbidity and mortality. 3. Multidisciplinary rounds completed. 4. ABCDE bundle addressed.
[2020-05-16] MEDS ORDERED: VANCOMYCIN HCL 0 MG in DEXTROSE 5%-WATER 250 ML IV NR (10:15)
[2020-05-16 10:38] LABS: ABSOLUTE BASOPHILS # (AUTO) 0.1 10^3/uL (0.0-0.2); ABSOLUTE EOSINOPHILS # (AUTO) 0.7 10^3/uL (0.0-0.6); ABSOLUTE LYMPHOCYTES (AUTO) 2.4 10^3/uL (0.5-4.7); ABSOLUTE MONOCYTES (AUTO) 1.6 10^3/uL (0.1-1.4); ABSOLUTE NEUT (AUTO) 11.2 10^3/uL (1.7-8.2); BASOPHILS % (AUTO) 0.8 % (0-2); EOSINOPHILS % (AUTO) 4.5 % (0-6); HEMATOCRIT 24.7 % (37.9-51.0); LYMPHOCYTES % (AUTO) 14.8 % (13-45); MEAN CORPUSCULAR HEMOGLOBIN 28.1 pg (27.0-33.4); MEAN CORPUSCULAR HGB CONC 32.3 g/dL (32.0-36.0); MEAN CORPUSCULAR VOLUME 87 fl (80-97); PLATELET COUNT 423 10^3/uL (150-450); RED BLOOD COUNT 2.84 10^6/uL (4.35-5.55); RED CELL DISTRIBUTION WIDTH 16.8 % (11.5-14.0); SEGMENTED NEUTROPHILS % (AUTO) 69.9 % (42-78); TOTAL CELLS COUNTED % (AUTO) 100 %; WHITE BLOOD COUNT 16.1 10^3/uL (4.0-10.5)
[2020-05-16 10:52] LABS: ANION GAP 9 (5-19); BLOOD UREA NITROGEN 49 mg/dL (7-20); CALCIUM 8.5 mg/dL (8.4-10.2); CARBON DIOXIDE 27 mmol/L (22-30); CHLORIDE 109 mmol/L (98-107); GLUCOSE 164 mg/dL (75-110)
[2020-05-16] MEDS: RINGERS SOLUTION,LACTATED 1,000 ML IV PRN ×2 (12:35→23:42)
[2020-05-16] MEDS: VANCOMYCIN HCL 750 MG in DEXTROSE 5%-WATER 250 ML IV SCH (13:17)
[2020-05-16] MEDS: ATORVASTATIN CALCIUM 40 MG TABLET PO SCH (21:04)
[2020-05-16] MEDS: INSULIN GLARGINE,HUM.REC.ANLOG 1,000 UNIT/10 ML VIAL SUBCUT SCH (21:05)
[2020-05-17] MEDS: ACETAMINOPHEN 325 MG TABLET PO PRN (00:43)
[2020-05-17 05:19] LABS: ABSOLUTE BASOPHILS # (AUTO) 0.1 10^3/uL (0.0-0.2); ABSOLUTE EOSINOPHILS # (AUTO) 0.6 10^3/uL (0.0-0.6); ABSOLUTE LYMPHOCYTES (AUTO) 2.3 10^3/uL (0.5-4.7); ABSOLUTE MONOCYTES (AUTO) 1.5 10^3/uL (0.1-1.4); ABSOLUTE NEUT (AUTO) 8.1 10^3/uL (1.7-8.2); BASOPHILS % (AUTO) 0.9 % (0-2); EOSINOPHILS % (AUTO) 5.1 % (0-6); HEMATOCRIT 19.6 % (37.9-51.0); LYMPHOCYTES % (AUTO) 18.4 % (13-45); MEAN CORPUSCULAR HEMOGLOBIN 28.8 pg (27.0-33.4); MEAN CORPUSCULAR VOLUME 87 fl (80-97); MONOCYTES % (AUTO) 11.5 % (3-13); PLATELET COUNT 337 10^3/uL (150-450); RED BLOOD COUNT 2.24 10^6/uL (4.35-5.55); RED CELL DISTRIBUTION WIDTH 16.6 % (11.5-14.0); SEGMENTED NEUTROPHILS % (AUTO) 64.1 % (42-78); TOTAL CELLS COUNTED % (AUTO) 100 %; WHITE BLOOD COUNT 12.6 10^3/uL (4.0-10.5)
[2020-05-17 05:25] LABS: HEMOGLOBIN 6.5 g/dL (13.5-17.0)
[2020-05-17 06:09] LABS: ANION GAP 7 (5-19); BLOOD UREA NITROGEN 45 mg/dL (7-20); CALCIUM 8.2 mg/dL (8.4-10.2); CARBON DIOXIDE 26 mmol/L (22-30); CHLORIDE 110 mmol/L (98-107); GLUCOSE 100 mg/dL (75-110); POTASSIUM 4.3 mmol/L (3.6-5.0)
[2020-05-17] MEDS: INSULIN REG, HUMAN 100 UNIT/ML 3 ML VIAL (PYX) SUBCUT SCH ×3 (07:06→17:21)
[2020-05-17] MEDS: CHLORHEXIDINE GLUCONATE 0.12% ORAL RINSE 15 ML UDC MM SCH ×3 (07:07→21:28)
[2020-05-17] MEDS: HEPARIN SOD (PORCINE) 5,000 UNIT/ML 1 ML VIAL SUBCUT SCH ×3 (07:09→21:26)
[2020-05-17] MEDS: CEFEPIME HCL 2 GM in DEXTROSE 5%-WATER 50 ML IV SCH (12:35)
[2020-05-17] MEDS: VANCOMYCIN HCL 750 MG in DEXTROSE 5%-WATER 250 ML IV SCH (12:36)
[2020-05-17] MEDS: RINGERS SOLUTION,LACTATED 1,000 ML IV PRN (12:45)
[2020-05-17] MEDS: ASPIRIN 81 MG TABLET, CHEWABLE PEG SCH (12:46)
[2020-05-17] MEDS: NORMAL SALINE INJ/PF 0.9% 10 ML SDV IV SCH ×2 (12:47→21:26)
[2020-05-17] MEDS: SENNOSIDES/DOCUSATE 8.6-50 MG 1 EACH TABLET NG SCH (12:47)
--- NOTE | 2020-05-17 17:28 | PDOC CRITICAL CARE PROG REPORT ---
General Date:: 05/17/20 ICU Day:: 35 Ventilator Day:: 35 Hospital Day:: 36 Resuscitation Status: Full Code Medical Power of Data Communications Analyst: Amber Events in the past 12 to 24 Hours:: 05/17: On pressure support ventilation. On cefepime for Pseudomonas pneumonia and wound infection (tracheostomy). NEVILLE nebs were discontinued with rising creatinine. No significant change from a neurological standpoint Review of systems relevant to events:: Neurologic, pulmonary. Reason for ICU Addmission:: Post respiratorycardiac arrest, persistently veg atative. - Medications: Medications reviewed and adjusted accordingly: Yes Physical Exam Vital Signs: Temp Pulse Resp BP Pulse Ox 100.0 F 99 16 140/69 H 98 05/17/20 12:00 05/16/20 20:00 05/17/20 12:14 05/17/20 12:14 05/17/20 12:14 Intake & Output 05/16/20 05/17/20 05/18/20 06:59 06:59 06:59 Intake Total 580 1730 Output Total 485 395 50 Balance 95 1335 -50 Weight 73 kg 73.9 kg Weight/Height Weight 73.9 kg Height 1.83 m General appearance: PRESENT: no acute distress, well-developed, well-nourished Head exam: PRESENT: atraumatic, normocephalic Eye exam: PRESENT: conjunctiva pink, EOMI, PERRLA. ABSENT: scleral icterus Mouth exam: PRESENT: moist, tongue midline Neck exam: PRESENT: tracheostomy. ABSENT: carotid bruit, JVD, lymphadenopathy, thyromegaly Respiratory exam: PRESENT: clear to auscultation king. ABSENT: rales, rhonchi, wheezes Cardiovascular exam: PRESENT: RRR. ABSENT: diastolic murmur, rubs, systolic murmur Pulses: PRESENT: normal carotid pulses GI/Abdominal exam: PRESENT: normal bowel sounds, soft. ABSENT: distended, guarding, mass, organolmegaly, rebound, tenderness Gentrourinary exam: PRESENT: indwelling catheter Extremities exam: PRESENT: other - Bilateral AKA Musculoskeletal exam: PRESENT: normal inspection Neurological exam: PRESENT: other - Persistent vegetative state Skin exam: PRESENT: dry, intact, warm. ABSENT: cyanosis, rash Tubes/Lines: PRESENT: Peg Tube, Other - Tracheostomy Laboratory/Radiographs Laboratory Results: 05/17/20 04:04 05/17/20 04:04 05/17/20 05/17/20 04:04 04:04 WBC 12.6 H RBC 2.24 L Hgb 6.5 L Hct 19.6 L MCV 87 MCH 28.8 MCHC 33.0 RDW 16.6 H Plt Count 337 Seg Neutrophils % 64.1 Sodium 143.0 Potassium 4.3 Chloride 110 H Carbon Dioxide 26 Anion Gap 7 BUN 45 H Creatinine 2.74 H Est GFR ( Amer) 29 L Glucose 100 Calcium 8.2 L 04/11/20 04/11/20 04/11/20 01:02 01:02 15:35 Creatine Kinase 743 H CK-MB (CK-2) 2.41 Troponin I 0.077 0.261 04/13/20 04/13/20 04/16/20 04:43 04:43 14:30 Creatine Kinase 540 H 213 H CK-MB (CK-2) Troponin I 0.126 Impressions: Foot X-Ray 04/09/20 20:34 IMPRESSION: Findings are consistent with osteomyelitis involving the lateral aspect of the fifth metatarsal base. Associated underlying pathologic fracture deformity. Superimposed foci of soft tissue gas at this site could indicate infection with a gas-forming organism. copyright 2011 [employer]- All Rights Reserved Chest CT 04/11/20 00:00 IMPRESSION: MILD CARDIOMEGALY. BILATERAL PLEURAL EFFUSIONS WITH FAINT ATELECTASIS. NO LOBAR INFILTRATES. Head CT 04/15/20 05:00 IMPRESSION: NORMAL BRAIN CT WITHOUT CONTRAST. SINUS DISEASE. EVIDENCE OF ACUTE STROKE: NO. Venous Doppler Study 04/20/20 00:00 IMPRESSION: NO EVIDENCE DVT OR SVT IN EITHER LEG. KUB X-Ray 04/23/20 00:00 IMPRESSION: NO RADIOGRAPHIC EVIDENCE FOR ACUTE ABDOMINAL DISEASE. Abdomen/Pelvis CT 04/25/20 00:00 IMPRESSION: Postprocedural changes from recent G-tube placement with small amounts of peritoneal free air. Contrast is present in the stomach and small bowel. Moderate bilateral pleural effusions and basilar atelectasis, increased compared with the prior study. PICC Line Insertion 04/30/20 00:00 IMPRESSION: SUCCESSFUL PLACEMENT OF A 5 FR DUAL LUMEN 42 CM PICC IN THE RIGHT BASILIC VEIN. Soft Tissue Neck CT 05/03/20 00:00 IMPRESSION: Pansinusitis Advanced left lower molar dental caries with periapical tooth root lucencies All labs, radiographs, diagnostic studies and EKGs were personally reviewed: Yes In addition, reports of radiographic and diagnostic studies were read: Yes Assessment and Plan - Diagnosis (1) Acute respiratory failure with hypoxia and hypercapnia Is this a current diagnosis for this admission?: Yes Plan: Resume trach collar trials in a.m. (2) Sepsis due to Gram negative bacteria Is this a current diagnosis for this admission?: Yes Plan: Change cefepime to 2 g IV daily. (3) Acute on chronic renal failure Qualifiers: Acute renal failure type: with acute tubular necrosis Chronic kidney disease stage: stage 4 (severe) Qualified Code(s): N17.0 - Acute kidney failure with tubular necrosis; N18.4 - Chronic kidney disease, stage 4 (severe) Is this a current diagnosis for this admission?: Yes Plan: Monitor urine output. Avoid nephrotoxic drugs. Renal dosing of medications. (4) Hypokalemia Is this a current diagnosis for this admission?: Yes (5) Brain anoxic injury Is this a current diagnosis for this admission?: Yes Plan: Consequence of his arrest. (6) Osteomyelitis of ankle or foot, right, acute Is this a current diagnosis for this admission?: Yes Plan: Status post right [id number] amputation. The wound looks very good. (7) Microcytic anemia Is this a current diagnosis for this admission?: Yes (8) Thrombocytosis Is this a current diagnosis for this admission?: Yes (9) Constipation Qualifiers: Constipation type: drug induced constipation Qualified Code(s): K59.03 - Drug induced constipation Is this a current diagnosis for this admission?: Yes Critical Time Critical Time (minutes): 45 Level of Care: ICU -: 1. The care of a critical patient is a dynamic process. This note is a account service representative synopsis but static in nature. The timeframe for treatments given in order is not necessarily the actual time these treatments may have been done. 2. This patient requires critical care secondary to ongoing requirements for therapy not offered or safe outside the critical care environment. Transfer to a lower level of care will result in altered life or limb morbidity and m ortality. 3. Multidisciplinary rounds completed. 4. ABCDE bundle addressed.
[2020-05-17] MEDS: INSULIN GLARGINE,HUM.REC.ANLOG 1,000 UNIT/10 ML VIAL SUBCUT SCH (21:25)
[2020-05-17] MEDS: PANTOPRAZOLE SODIUM 40 MG VIAL IV SCH (21:25)
[2020-05-17] MEDS: ATORVASTATIN CALCIUM 40 MG TABLET PO SCH (21:26)
[2020-05-18] MEDS: INSULIN REG, HUMAN 100 UNIT/ML 3 ML VIAL (PYX) SUBCUT SCH ×5 (00:10→23:21)
[2020-05-18] MEDS: RINGERS SOLUTION,LACTATED 1,000 ML IV PRN ×3 (01:19→23:22)
[2020-05-18 02:57] LABS: ABSOLUTE EOSINOPHILS # (AUTO) 0.9 10^3/uL (0.0-0.6); ABSOLUTE LYMPHOCYTES (AUTO) 3.3 10^3/uL (0.5-4.7); ABSOLUTE MONOCYTES (AUTO) 1.6 10^3/uL (0.1-1.4); ABSOLUTE NEUT (AUTO) 9.1 10^3/uL (1.7-8.2); BASOPHILS % (AUTO) 0.2 % (0-2); EOSINOPHILS % (AUTO) 5.8 % (0-6); HEMATOCRIT 23.4 % (37.9-51.0); LYMPHOCYTES % (AUTO) 22.4 % (13-45); MEAN CORPUSCULAR HEMOGLOBIN 28.7 pg (27.0-33.4); MEAN CORPUSCULAR HGB CONC 33.3 g/dL (32.0-36.0); MEAN CORPUSCULAR VOLUME 86 fl (80-97); MONOCYTES % (AUTO) 10.6 % (3-13); PLATELET COUNT 369 10^3/uL (150-450); RED BLOOD COUNT 2.72 10^6/uL (4.35-5.55); RED CELL DISTRIBUTION WIDTH 16.6 % (11.5-14.0); TOTAL CELLS COUNTED % (AUTO) 100 %; WHITE BLOOD COUNT 14.8 10^3/uL (4.0-10.5)
[2020-05-18 02:59] LABS: ARTERIAL BLOOD BASE EXCESS 0.7 mmol/L; ARTERIAL BLOOD H2CO3 0.88 mmol/L (1.05-1.35); ARTERIAL BLOOD HCO3 23.4 mmol/L (20-24); ARTERIAL BLOOD O2 SATURATION 91.8 % (94-98); ARTERIAL BLOOD PCO2 29.4 mmHg (35-45); ARTERIAL BLOOD PH 7.52 (7.35-7.45); ARTERIAL BLOOD PO2 54.5 mmHg (80-100); ARTERIAL BLOOD TOTAL CO2 24.3 mmol/L (23-27)
[2020-05-18 03:03] LABS: ARTERIAL BLOOD FIO2 30%
[2020-05-18 03:08] LABS: HEMOGLOBIN 7.8 g/dL (13.5-17.0)
[2020-05-18 03:19] LABS: ALBUMIN 2.9 g/dL (3.5-5.0); ALKALINE PHOSPHATASE 96 U/L (38-126); ANION GAP 9 (5-19); ASPARTATE AMINO TRANSFERASE 41 U/L (17-59); BILIRUBIN,TOTAL 0.8 mg/dL (0.2-1.3); BLOOD UREA NITROGEN 44 mg/dL (7-20); CALCIUM 8.6 mg/dL (8.4-10.2); CARBON DIOXIDE 26 mmol/L (22-30); CHLORIDE 110 mmol/L (98-107); GLUCOSE 126 mg/dL (75-110); PHOSPHORUS 3.8 mg/dL (2.5-4.5); POTASSIUM 4.3 mmol/L (3.6-5.0); TOTAL PROTEIN 6.7 g/dL (6.3-8.2)
[2020-05-18 03:25] LABS: PREALBUMIN 20.6 mg/dL (17.6-36.0)
[2020-05-18] MEDS: CHLORHEXIDINE GLUCONATE 0.12% ORAL RINSE 15 ML UDC MM SCH ×3 (05:21→21:17)
[2020-05-18] MEDS: HEPARIN SOD (PORCINE) 5,000 UNIT/ML 1 ML VIAL SUBCUT SCH ×3 (05:21→21:09)
[2020-05-18] MEDS: SENNOSIDES/DOCUSATE 8.6-50 MG 1 EACH TABLET NG SCH (10:58)
[2020-05-18] MEDS: ASPIRIN 81 MG TABLET, CHEWABLE PEG SCH (10:58)
[2020-05-18] MEDS: CEFEPIME HCL 2 GM in DEXTROSE 5%-WATER 50 ML IV SCH (10:58)
[2020-05-18] MEDS: PANTOPRAZOLE SODIUM 40 MG VIAL IV SCH (10:58)
[2020-05-18] MEDS: NORMAL SALINE INJ/PF 0.9% 10 ML SDV IV SCH ×2 (10:59→21:09)
[2020-05-18] MEDS: ALBUTEROL SULFATE 0.042% NEB (1.25 MG/3 ML) AMPUL NEB PRN (11:03)
[2020-05-18] MEDS: VANCOMYCIN HCL 750 MG in DEXTROSE 5%-WATER 250 ML IV SCH (12:08)
[2020-05-18] MEDS ORDERED: NORMAL SALINE 250 ML IV PRN ×2 (12:16)
--- NOTE | 2020-05-18 16:19 | PDOC CRITICAL CARE PROG REPORT ---
General Date:: 05/18/20 ICU Day:: 36 Ventilator Day:: 36 Hospital Day:: 37 Resuscitation Status: Full Code Medical Power of Mounter Clarinets: Amber Blandon Events in the past 12 to 24 Hours:: 05/17: On pressure support ventilation. On cefepime for Pseudomonas pneumonia and wound infection (tracheostomy). NEVILLE nebs were discontinued with rising creatinine. No significant change from a neurological standpoint 05/11: Tolerated trach collar trial for about 1 hour today. Back on pressure support ventilation. Copious mucus oral secretions (above the cuff). Hemoglobin 7.8. Review of systems relevant to events:: Neurologic, pulmonary. Reason for ICU Addmission:: Post respiratorycardiac arrest, persistently vegatative. - Medications: Medications reviewed and adjusted accordingly: Yes Physical Exam Vital Signs: Temp Pulse Resp BP Pulse Ox 99.9 F 118 H 16 133/68 H 97 05/18/20 12:00 05/18/20 12:00 05/18/20 14:00 05/18/20 13:15 05/18/20 14:00 Intake & Output 05/17/20 05/18/20 05/19/20 06:59 06:59 06:59 Intake Total 1730 3200 1000 Output Total 395 1000 725 Balance 1335 2200 275 Weight 73.9 kg 74.4 kg Weight/Height Weight 74.4 kg Height 1.83 m General appearance: PRESENT: no acute distress, well-developed, well-nourished Head exam: PRESENT: atraumatic, normocephalic Eye exam: PRESENT: conjunctiva pink, EOMI, PERRLA. ABSENT: scleral icterus Mouth exam: PRESENT: moist, tongue midline, other - Copious oral secretions (mucoid) Neck exam: PRESENT: tracheostomy. ABSENT: carotid bruit, JVD, lymphadenopathy, thyromegaly Respiratory exam: PRESENT: crackles, rales, rhonchi. ABSENT: wheezes Cardiovascular exam: PRESENT: RRR, tachycardia. ABSENT: diastolic murmur, rubs, systolic murmur Pulses: PRESENT: normal carotid pulses GI/Abdominal exam: PRESENT: normal bowel sounds, soft. ABSENT: distended, guarding, mass, organolmegaly, rebound, tenderness Gentrourinary exam: PRESENT: indwelling catheter Extremities exam: PRESENT: other - Bilateral AKA Neurological exam: PRESENT: altered, CN II-XII grossly intact Psychiatric exam: ABSENT: agitated, anxious Skin exam: PRESENT: other - Right AKA stump incision clean, dry, intact Tubes/Lines: PRESENT: Peg Tube, Other - Tracheostomy Laboratory/Radiographs Laboratory Results: 05/18/20 02:30 05/18/20 02:30 05/18/20 05/18/20 05/18/20 02:30 02:30 02:50 WBC 14.8 H RBC 2.72 L Hgb 7.8 L Hct 23.4 L MCV 86 MCH 28.7 MCHC 33.3 RDW 16.6 H Plt Count 369 Seg Neutrophils % 61.0 Carbonic Acid 0.88 L HCO3/H2CO3 Ratio 26:1 ABG pH 7.52 H ABG pCO2 29.4 L ABG pO2 54.5 L ABG HCO3 23.4 ABG O2 Saturation 91.8 L ABG Base Excess 0.7 FiO2 30% Sodium 144.8 Potassium 4.3 Chloride 110 H Carbon Dioxide 26 Anion Gap 9 BUN 44 H Creatinine 2.65 H Est GFR ( Amer) 30 L Glucose 126 H Calcium 8.6 Phosphorus 3.8 Magnesium 2.8 H Total Bilirubin 0.8 AST 41 Alkaline Phosphatase 96 Total Protein 6.7 Albumin 2.9 L Prealbumin 20.6 04/11/20 04/11/20 04/11/20 01:02 01:02 15:35 Creatine Kinase 743 H CK-MB (CK-2) 2.41 Troponin I 0.077 0.261 04/13/20 04/13/20 04/16/20 04:43 04:43 14:30 Creatine Kinase 540 H 213 H CK-MB (CK-2) Troponin I 0.126 Impressions: Foot X-Ray 04/09/20 20:34 IMPRESSION: Findings are consistent with osteomyelitis involving the lateral aspect of the fifth metatarsal base. Associated underlying pathologic fracture deformity. Superimposed foci of soft tissue gas at this site could indicate infection with a gas-forming organism. copyright 2011 [employer]- All Rights Reserved Chest CT 04/11/20 00:00 IMPRESSION: MILD CARDIOMEGALY. BILATERAL PLEURAL EFFUSIONS WITH FAINT ATELECTASIS. NO LOBAR INFILTRATES. Head CT 04/15/20 05:00 IMPRESSION: NORMAL BRAIN CT WITHOUT CONTRAST. SINUS DISEASE. EVIDENCE OF ACUTE STROKE: NO. Venous Doppler Study 04/20/20 00:00 IMPRESSION: NO EVIDENCE DVT OR SVT IN EITHER LEG. KUB X-Ray 04/23/20 00:00 IMPRESSION: NO RADIOGRAPHIC EVIDENCE FOR ACUTE ABDOMINAL DISEASE. Abdomen/Pelvis CT 04/25/20 00:00 IMPRESSION: Postprocedural changes from recent G-tube placement with small amounts of peritoneal free air. Contrast is present in the stomach and small bowel. Moderate bilateral pleural effusions and basilar atelectasis, increased compared with the prior study. PICC Line Insertion 04/30/20 00:00 IMPRESSION: SUCCESSFUL PLACEMENT OF A 5 FR DUAL LUMEN 42 CM PICC IN THE RIGHT B ASILIC VEIN. Soft Tissue Neck CT 05/03/20 00:00 IMPRESSION: Pansinusitis Advanced left lower molar dental caries with periapical tooth root lucencies All labs, radiographs, diagnostic studies and EKGs were personally reviewed: Yes In addition, reports of radiographic and diagnostic studies were read: Yes Assessment and Plan - Diagnosis (1) Acute respiratory failure with hypoxia and hypercapnia Is this a current diagnosis for this admission?: Yes Plan: Resume trach collar trials today. Start glycopyrrolate for oral secretions. (2) Sepsis due to Gram negative bacteria Is this a current diagnosis for this admission?: Yes Plan: On cefepime to 2 g IV daily. (3) Pseudomonas pneumonia Is this a current diagnosis for this admission?: Yes Plan: On cefepime 2 g IV daily. Start date 05/12/2020. (4) Acute on chronic renal failure Qualifiers: Acute renal failure type: with acute tubular necrosis Chronic kidney disease stage: stage 4 (severe) Qualified Code(s): N17.0 - Acute kidney failure with tubular necrosis; N18.4 - Chronic kidney disease, stage 4 (severe) Is this a current diagnosis for this admission?: Yes Plan: Creatinine slowly improving, 2.7 today. Monitor urine output. Avoid nephrotoxic drugs. Renal dosing of medications. (5) Brain anoxic injury Is this a current diagnosis for this admission?: Yes Plan: Consequence of his arrest. (6) Microcytic anemia Is this a current diagnosis for this admission?: Yes Plan: Hgb 7.9 today, normocytic. Given his acute on chronic kidney disease, I will transfuse 1 unit PRBC today. Check CBC in am. (7) Hypokalemia Is this a current diagnosis for this admission?: Yes (8) Osteomyelitis of ankle or foot, right, acute Is this a current diagnosis for this admission?: Yes Plan: Status post right [id number] amputation. The wound looks very good. (9) Thrombocytosis Is this a current diagnosis for this admission?: Yes (10) Constipation Qualifiers: Constipation type: drug induced constipation Qualified Code(s): K59.03 - Drug induced constipation Is this a current diagnosis for this admission?: Yes Plan: Improved. Likely secondary to narcotic bowel. (11) Hypertension Is this a current diagnosis for this admission?: Yes Plan: Home antihypertensive regimen: Amlodipine 10 mg p.o. daily, Imdur 30 mg p.o. daily, losartan 25 mg p.o. daily, Toprol-XL 50 mg p.o. daily Critical Time Critical Time (minutes): 60 Level of Care: ICU -: 1. The care of a critical patient is a dynamic process. This note is a sales representative electric service synopsis but static in nature. The timeframe for treatments given in order is not necessarily the actual time these treatments may have been done. 2. This patient requires critical care secondary to ongoing requirements for therapy not offered or safe outside the critical care environment. Transfer to a lower level of care will result in altered life or limb morbidity and mortality. 3. Multidisciplinary rounds completed. 4. ABCDE bundle addressed.
[2020-05-18] MEDS ORDERED: GLYCOPYRROLATE 1 MG TABLET PO SCH (18:30)
[2020-05-18] MEDS: ATORVASTATIN CALCIUM 40 MG TABLET PO SCH (21:09)
[2020-05-18] MEDS: INSULIN GLARGINE,HUM.REC.ANLOG 1,000 UNIT/10 ML VIAL SUBCUT SCH (21:10)
[2020-05-19 03:39] LABS: ABSOLUTE BASOPHILS # (AUTO) 0.1 10^3/uL (0.0-0.2); ABSOLUTE EOSINOPHILS # (AUTO) 0.7 10^3/uL (0.0-0.6); ABSOLUTE LYMPHOCYTES (AUTO) 2.4 10^3/uL (0.5-4.7); ABSOLUTE MONOCYTES (AUTO) 1.4 10^3/uL (0.1-1.4); ABSOLUTE NEUT (AUTO) 9.9 10^3/uL (1.7-8.2); EOSINOPHILS % (AUTO) 5.1 % (0-6); HEMATOCRIT 24.1 % (37.9-51.0); LYMPHOCYTES % (AUTO) 16.7 % (13-45); MEAN CORPUSCULAR HEMOGLOBIN 28.8 pg (27.0-33.4); MEAN CORPUSCULAR HGB CONC 33.1 g/dL (32.0-36.0); MEAN CORPUSCULAR VOLUME 87 fl (80-97); MONOCYTES % (AUTO) 9.8 % (3-13); PLATELET COUNT 284 10^3/uL (150-450); RED BLOOD COUNT 2.78 10^6/uL (4.35-5.55); RED CELL DISTRIBUTION WIDTH 16.1 % (11.5-14.0); SEGMENTED NEUTROPHILS % (AUTO) 67.4 % (42-78); TOTAL CELLS COUNTED % (AUTO) 100 %; WHITE BLOOD COUNT 14.7 10^3/uL (4.0-10.5)
[2020-05-19 03:59] LABS: ANION GAP 7 (5-19); BLOOD UREA NITROGEN 36 mg/dL (7-20); CALCIUM 8.3 mg/dL (8.4-10.2); CARBON DIOXIDE 23 mmol/L (22-30); CHLORIDE 113 mmol/L (98-107); GLUCOSE 101 mg/dL (75-110); POTASSIUM 4.2 mmol/L (3.6-5.0)
[2020-05-19] MEDS: INSULIN REG, HUMAN 100 UNIT/ML 3 ML VIAL (PYX) SUBCUT SCH (05:10)
[2020-05-19] MEDS: CHLORHEXIDINE GLUCONATE 0.12% ORAL RINSE 15 ML UDC MM SCH (05:10)
[2020-05-19] MEDS: HEPARIN SOD (PORCINE) 5,000 UNIT/ML 1 ML VIAL SUBCUT SCH (05:11)
[2020-05-19] MEDS ORDERED: PHOSPHORUS #1 250 MG TABLET PEG ONE (05:24)
[2020-05-19 07:50] VITALS: BP 114/65
--- NOTE | 2020-05-19 08:27 | RADIOLOGY REPORT (SQ) ---
EXAM DESCRIPTION: CHEST SINGLE VIEW IMAGES COMPLETED DATE/TIME: 05/19/2020 7:02 am REASON FOR STUDY: ETT tube COMPARISON: 05/16/2020 NUMBER OF VIEWS: One view. TECHNIQUE: Single frontal radiographic image of the chest acquired. LIMITATIONS: None. FINDINGS: LUNGS AND PLEURA: Persistent diffuse bilateral airspace disease. Possibly mild improvemen t in the upper lobe infiltrate although there has been a slight difference in technique. No pneumoth orax. Tracheostomy tube remains in place. Central line appears unchanged. MEDIASTINUM AND HILAR STRUCTURES: Stable heart size and mediastinal structures. HEART AND VASCULAR STRUCTURES: Stable appearance. BONES: No acute findings. HARDWARE: None in the chest. OTHER: No other significant finding. IMPRESSION: Grossly stable appearance of the chest with diffuse bowel airspace disease. Tracheostom y tube remains in place. TECHNICAL DOCUMENTATION: JOB ID: [id number] [email or web address]- All Rights Reserved Reading location - IP/workstation name: [email or web address]
--- NOTE | 2020-05-19 09:02 | PDOC TRANSFER SUMMARY ---
Impression - Admit/DC Date/PCP Admission Date/Primary Care Provider: 04/10/20 01:02 Discharge Date: 05/19/20 - Discharge Diagnosis (1) Acute respiratory failure with hypoxia and hypercapnia Is this a current diagnosis for this admission?: Yes (2) Brain anoxic injury Is this a current diagnosis for this admission?: Yes (3) Pseudomonas pneumonia Is this a current diagnosis for this admission?: Yes (4) Sepsis due to Gram negative bacteria Is this a current diagnosis for this admission?: Yes (5) Acute on chronic renal failure Is this a current diagnosis for this admission?: Yes (6) Microcytic anemia Is this a current diagnosis for this admission?: Yes (7) Hypokalemia Is this a current diagnosis for this admission?: Yes (8) Osteomyelitis of ankle or foot, right, acute Is this a current diagnosis for this admission?: Yes (9) Thrombocytosis Is this a current diagnosis for this admission?: Yes (10) Constipation Is this a current diagnosis for this admission?: Yes (11) Hypertension Is this a current diagnosis for this admission?: Yes - Additional Information Resuscitation Status: Full Code Discharge Diet: Tube Feeding (Comments) Discharge Activity: Bedrest - Glucerna 1.5 @ 30 Referrals: HANNAH STRATTON MD [ACTIVE STAFF] - Follow up as needed Prescriptions: Cefepime 2 gm/D5w RTU [Maxipime RTU 2 gm-D5w 50 ml Premix Bag] 2 gm IV Q24H 12 Days rtupb Home Medications: Acetaminophen [Tylenol 325 mg Tablet] 650 mg PO Q4HP PRN tablet 05/19/20 Albuterol Sulfate [Ventolin 0.042% Neb 1.25 mg/3 mL Ampul] 1.25 mg NEB RTQ4HP PRN vial.neb 05/19/20 Aspirin [Aspirin 81 mg Chewable Tablet] 81 mg PEG DAILY tab.chew 05/19/20 Atorvastatin Calcium [Lipitor 40 mg Tablet] 40 mg PO QHS tablet 05/19/20 Cefepime 2 gm/D5w RTU [Maxipime RTU 2 gm-D5w 50 ml Premix Bag] 2 gm IV Q24H 12 Days rtupb 05/19/20 Chlorhexidine Gluconate [Periogard 0.12% Oral Rinse 15 ml] 15 ml MM Q8 udc 05/19/20 Ferrous Sulfate [Ferrous Sulfate Liquid 300 mg/5 ml Udcup] 300 mg PEG TID udc 05/19/20 Furosemide [Lasix 20 mg Tablet] 20 mg PO BID tablet 05/19/20 Glycopyrrolate [Robinul Forte 1 mg Tablet] 1 mg PO DAILY tablet 05/19/20 Heparin Sodium,Porcine [Heparin Inj 5,000 Units/ml 1 ml Vial] 5,000 unit SUBCUT Q8 vial 05/19/20 Hydralazine HCl [Apresoline 50 mg Tablet] 50 mg PEG Q8 tablet 05/19/20 Insulin Glargine,Hum.rec.anlog [Lantus Insulin 100 Unit/1 ml 10 ml] 20 unit SUBCUT QHS unit 05/19/20 Insulin Regular, Human [Humulin R (Reg) Insulin 100 unit/mL] 0 - 14 unit SUBCUT Q6 unit 05/19/20 Metoprolol Tartrate [Lopressor 25 mg Tablet] 25 mg PEG Q12 tablet 05/19/20 Pantoprazole Sodium [Protonix IV Inj 40 mg Vial] 40 mg IV DAILY vial 05/19/20 Sennosides/Docusate 8.6-50 mg [Senna Plus Tablet] 1 each NG DAILY tablet 05/19/20 Vancomycin HCl [Vancocin Inj 1000 mg Vial] 750 mg IV NOON vial 05/19/20 History of Present Illiness History of Present Illness: VITO FRANCISCO JR is a 59 year old male who originally presented to [facility] emergency department on 04/10/2020 with complaints of 2 months of worsening of a right foot ulcer despite management at the local wound care clinic, increased erythema and pain. In the emergency department, he was found to have evidence of gangrenous necrosis on foot x-ray. Of note, he reportedly was able to provide a complete review of systems. General surgery was consulted and recommended amputation. He was admitted to the hospitalist service. He did undergo emergency excisional debridement. He presented with a known history of coronary artery disease, hypertension, type 2 diabetes mellitus with peripheral vascular disease (status post left AKA) and chronic kidney disease stage IV. Hospital Course Hospital Course: VITO FRANCISCO JR is a 59 year old male who originally presented to [facility] emergency department on 04/10/2020 with complaints of 2 months of worsening of a right foot ulcer despite management at the local wound care clinic, increased erythema and pain. In the emergency department, he was found to have evidence of gangrenous necrosis on foot x-ray. Of note, he reportedly was able to provide a complete review of systems. General surgery was consulted. He underwent excisional debridement of that right foot. Postoperatively, he transferred to [facility]. Later that evening, he reportedly experienced PEA arrest on 2 separate occasions. He was intubated subsequent to the first round of CPR. Shortly thereafter, he had another episode of PEA arrest. He was transferred to the ICU after ROSC was achieved. At the time of transfer, he was hypotensive, requiring phenylephrine and vasopressin. Neurological exam was worrisome for neurologic devastation, demonstrating myoclonic jerking without other evidence of purposeful movement. His hemodynamics improved to the point of liberating from vasopressor therapy by ICU day 2; however, his neurologic status has been slow to improve. EEG was obtained and demonstrated burst suppression pattern. The patient did have a history of poor dentition and sustained dental injury to the upper and lower alveolar ridges. He did sustain tongue injury, resulting in laceration of the tongue, while intubated. This was believed to be secondary to clenching of the teeth (biting of the tongue). This event necessitated initiation of sedative and paralytic therapy for a brief period of time to avoid further injury. During the course of broad-spectrum antibiotic therapy, patient was noted to have copious purulent drainage from the periodontal tissues with associated sloughing/enucleation of multiple teeth. He underwent tracheostomy and percutaneous gastrostomy placement on 04/24/2020. The week of 05/10, the patient was able to pursue trach collar trials and tolerated nearly 12 hours off of mechanical ventilatory support; however, he was noted to have copious purulent secretions from the tracheostomy site and from the airway. Trach aspirate isolated Pseudomonas aeruginosa. Chest x-ray subsequently revealed progressively worsening bilateral infiltrates. Subsequently, the patient became more ventilator dependent and has been on pressure support ventilation for the past week. Neurologically, the patient no longer demonstrates myoclonic jerks. He does spontaneously open his eyes and appears to visually scan the room. However, he does not follow any commands. He does demonstrate some deliberate movements to noxious stimuli. With respect to his diabetic foot (right), surgical specimens isolated multiple pathogens (Streptococcus anginosus, Pseudomonas aeruginosa, Staphylococcus aureus, Anaerococcus species, Bacteroides fragilis. Blood cultures were positive for Streptococcus anginosus. He was covered with broad-spectrum ant imicrobials, starting with cefepime/vancomycin in the emergency department. The patient initially underwent excisional debridement (emergency surgery). Postoperative recommendations included anticipated need for additional surgical procedures, including the possibility of amputation. Pathology specimens confirmed acute osteomyelitis. Cefepime was briefly changed to Zosyn only to ultimately change again to meropenem/daptomycin postoperatively. Postoperatively, the patient was noted to continue to have a rising fever curve, persistently increasing leukocytosis and thrombocytosis. Ciprofloxacin was added based on sensitivity data. Fluconazole was added for Isamar albicans/Isamar dubliniensis. While the original treatment plan anticipated 6 weeks of IV antibiotic therapy for treatment of osteomyelitis, the patient did undergo right above-knee amputation on 05/01/2020 (previously had a history of left above-knee amputation). The right lower extremity stump appears to be healing well and has had no postoperative complications. The original plan for 6 weeks of IV antibiotic therapy was interrupted after amputation. He subsequently developed Pseudomonas pneumonia and Pseudomonas wound infection (tracheostomy). He was restarted on cefepime 2 g IV daily. His hemodynamic compromise subsequent to his PEA arrest did result in the development of acute and chronic renal failure. His serum creatinine peaked at 4.89 on 04/24/2020. He did briefly require hemodialysis support via a temporary dialysis catheter. This has been removed. He has had waxing and waning improvement in his renal function with an overall downtrending creatinine (most recently 2.65 mg/dL). He is nonoliguric. PROCEDURES: 04/10/2020: Excisional debridement of skin, subcutaneous tissue, fascia, tendons of the right foot; excisional debridement of portions of the right fifth metatarsal base and cuboid bone; placement of counterincisions on the plantar and inferomedial malleoli or regions with Babar loop drains (Dr. Bill Kathleen) 04/11/2020: Right IJ central venous catheter insertion 04/11/2020: Radial arterial line insertion 04/24/2020: Open tracheostomy with a fenestrated #8 Shiley tube; esop hagogastroduodenoscopy; percutaneous endoscopic gastrostomy; focused ultrasound of the neck (Dr. Bill Kathleen) 04/30/2020: Right upper extremity PICC line insertion 05/01/2020: Right above-knee amputation (Dr. Claudio Ko) Physical Exam Vital Signs: Temp Pulse Resp BP Pulse Ox 99.3 F 91 14 131/71 H 99 05/18/20 15:50 05/18/20 15:50 05/18/20 15:50 05/18/20 15:50 05/18/20 15:50 Intake & Output 05/17/20 05/18/20 05/19/20 06:59 06:59 06:59 Intake Total 1730 3200 1030 Output Total 395 1000 725 Balance 1335 2200 305 Weight 73.9 kg 74.4 kg General appearance: PRESENT: no acute distress, well-developed, well-nourished Head exam: PRESENT: atraumatic, normocephalic Eye exam: PRESENT: conjunctiva pink, EOMI, PERRLA. ABSENT: scleral icterus Mouth exam: PRESENT: laceration - Tongue laceration healed, moist, tongue midline Teeth exam: PRESENT: poor dentation Neck exam: PRESENT: tracheostomy. ABSENT: carotid bruit, JVD, lymphadenopathy, thyromegaly Respiratory exam: PRESENT: crackles, symmetrical. ABSENT: rhonchi, wheezes Cardiovascular exam: PRESENT: RRR. ABSENT: diastolic murmur, rubs, systolic murmur Pulses: PRESENT: normal carotid pulses, normal radial pulses, normal femoral pulses GI/Abdominal exam: PRESENT: normal bowel sounds, soft. ABSENT: distended, guarding, mass, organolmegaly, rebound, tenderness Gentrourinary exam: PRESENT: indwelling catheter Extremities exam: PRESENT: +1 edema, other - Bilateral AKA Neurological exam: PRESENT: CN II-XII grossly intact, other - Spontaneously opens eyes. Facial symmetry. Spontaneous respirations intact. Visually scans around the room. Does not follow commands. Extension posturing to noxious stimuli. DTR: 1+ at bilateral biceps tendons. Skin exam: PRESENT: dry, intact, warm, other - Right AKA stump incision clean, dry, intact. [place] removed.. ABSENT: cyanosis, rash Results Laboratory Results: WBC 14.8 10^3/uL (4.0-10.5) H 05/18/20 02:30 RBC 2.72 10^6/uL (4.35-5.55) L 05/18/20 02:30 Hgb 7.8 g/dL (13.5-17.0) L 05/18/20 02:30 Hct 23.4 % (37.9-51.0) L 05/18/20 02:30 MCV 86 fl (80-97) 05/18/20 02:30 MCH 28.7 pg (27.0-33.4) 05/18/20 02:30 MCHC 33.3 g/dL (32.0-36.0) 05/18/20 02:30 RDW 16.6 % (11.5-14.0) H 05/18/20 02:30 Plt Count 369 10^3/uL (150-450) 05/18/20 02:30 Lymph % (Auto) 22.4 % (13-45) 05/18/20 02:30 [place] % (Auto) 10.6 % (3-13) 05/18/20 02:30 Eos % (Auto) 5.8 % (0-6) 05/18/20 02:30 Baso % (Auto) 0.2 % (0-2) 05/18/20 02:30 Absolute Neuts (auto) 9.1 10^3/uL (1.7-8.2) H 05/18/20 02:30 Absolute Lymphs (auto) 3.3 10^3/uL (0.5-4.7) 05/18/20 02:30 Absolute Monos (auto) 1.6 10^3/uL (0.1-1.4) H 05/18/20 02:30 Absolute Eos (auto) 0.9 10^3/uL (0.0-0.6) H 05/18/20 02:30 Absolute Basos (auto) 0.0 10^3/uL (0.0-0.2) 05/18/20 02:30 Total Counted 100 04/22/20 21:05 Seg Neutrophils % 61.0 % (42-78) 05/18/20 02:30 Seg Neuts % (Manual) 83 % (42-78) H 04/22/20 21:05 Band Neutrophils % 2 % (3-5) L 04/21/20 03:50 Lymphocytes % (Manual) 9 % (13-45) L 04/22/20 21:05 Atypical Lymphs % 1 % (0) 04/22/20 21:05 Monocytes % (Manual) 7 % (3-13) 04/22/20 21:05 Eosinophils % (Manual) 0 % (0-6) 04/22/20 21:05 Basophils % (Manual) 0 % (0-2) 04/22/20 21:05 Abs Neuts (Manual) 16.8 10^3/uL (1.7-8.2) H 04/22/20 21:05 Abs Lymphs (Manual) 2.0 10^3/uL (0.5-4.7) 04/22/20 21:05 Abs Monocytes (Manual) 1.4 10^3/uL (0.1-1.4) 04/22/20 21:05 Absolute Eos (Manual) 0.0 10^3/uL (0.0-0.6) 04/22/20 21:05 Abs Basophils (Manual) 0.0 10^3/uL (0.0-0.2) 04/22/20 21:05 Nucleated RBCs 1 /100 WBC (0) 04/16/20 04:15 Toxic Granulation SLIGHT 04/21/20 03:50 Toxic Vacuolation PRESENT 04/20/20 04:59 Platelet Comment INCREASED 04/22/20 21:05 Polychromasia SLIGHT 04/22/20 21:05 Hypochromasia SLIGHT 04/21/20 03:50 Poikilocytosis SLIGHT 04/19/20 04:50 Anisocytosis SLIGHT 04/22/20 21:05 Microcytosis SLIGHT 04/20/20 04:59 Ovalocytes SLIGHT 04/19/20 04:50 Nicolasa Cells SLIGHT 04/11/20 01:02 Schistocytes SLIGHT 04/20/20 04:59 PT 15.9 SEC (11.4-15.4) H 05/01/20 04:35 INR 1.26 05/01/20 04:35 APTT 38.6 SEC (23.5-35.8) H 05/01/20 04:35 Carbonic Acid 0.88 mmol/L (1.05-1.35) L 05/18/20 02:50 HCO3/H2CO3 Ratio 26:1 05/18/20 02:50 ABG pH 7.52 (7.35-7.45) H 05/18/20 02:50 ABG pCO2 29.4 mmHg (35-45) L 05/18/20 02:50 ABG pO2 54.5 mmHg (80-100) L 05/18/20 02:50 ABG HCO3 23.4 mmol/L (20-24) 05/18/20 02:50 ABG Total CO2 24.3 mmol/L (23-27) 05/18/20 02:50 ABG O2 Saturation 91.8 % (94-98) L 05/18/20 02:50 ABG Base Excess 0.7 mmol/L 05/18/20 02:50 FiO2 30% 05/18/20 02:50 Sodium 144.8 mmol/L (137-145) 05/18/20 02:30 Potassium 4.3 mmol/L (3.6-5.0) 05/18/20 02:30 Chloride 110 mmol/L (98-107) H 05/18/20 02:30 Carbon Dioxide 26 mmol/L (22-30) 05/18/20 02:30 Anion Gap 9 (5-19) 05/18/20 02:30 BUN 44 mg/dL (7-20) H 05/18/20 02:30 Creatinine 2.65 mg/dL (0.52-1.25) H 05/18/20 02:30 Est GFR ( Amer) 30 (>60) L 05/18/20 02:30 Est GFR (Non-Af Amer) Cancelled 04/23/20 14:48 Est GFR (MDRD) Non-Af 25 (>60) L 05/18/20 02:30 Glucose 126 mg/dL (75-110) H 05/18/20 02:30 POC Glucose 204 mg/dL (70-110) H 05/18/20 12:00 Hemoglobin A1c % 10.3 % (4.7-6.0) H 04/10/20 04:06 Lactic Acid 0.7 mmol/L (0.7-2.1) 05/02/20 12:55 Calcium 8.6 mg/dL (8.4-10.2) 05/18/20 02:30 Ionized Calcium Sujit 1.05 mmol/L (1.14-1.30) L 04/25/20 16:26 Phosphorus 3.8 mg/dL (2.5-4.5) 05/18/20 02:30 Magnesium 2.8 mg/dL (1.6-2.3) H 05/18/20 02:30 Total Bilirubin 0.8 mg/dL (0.2-1.3) 05/18/20 02:30 Direct Bilirubin 0.0 mg/dL (0.0-0.4) 05/18/20 02:30 Neonat Total Bilirubin Not Reportable 05/18/20 02:30 Neonat Direct Bilirubin Not Reportable 05/18/20 02:30 Neonat Indirect Bili Not Reportable 05/18/20 02:30 GGT 50 U/L (8-78) 04/13/20 04:43 AST 41 U/L (17-59) 05/18/20 02:30 ALT 26 U/L (<50) 05/18/20 02:30 Alkaline Phosphatase 96 U/L (38-126) 05/18/20 02:30 Ammonia < 8.7 umol/L (9-33) L 04/16/20 04:10 Creatine Kinase 213 U/L (55-170) H 04/16/20 14:30 CK-MB (CK-2) 2.41 ng/mL (<4.55) 04/11/20 01:02 Troponin I 0.126 ng/mL 04/13/20 04:43 C-Reactive Protein 224.5 mg/L (<10.0) H 05/05/20 04:25 Total Protein 6.7 g/dL (6.3-8.2) 05/18/20 02:30 Albumin 2.9 g/dL (3.5-5.0) L 05/18/20 02:30 Prealbumin 20.6 mg/dL (17.6-36.0) 05/18/20 02:30 Triglycerides 180 mg/dL (<150) H 05/05/20 15:57 Amylase 42 U/L (30-110) 05/03/20 04:06 Lipase 30.5 U/L (23-300) 05/03/20 04:06 EGFR Cancelled 04/23/20 14:48 Procalcitonin 0.22 ng/mL (0.00-0.08) H 05/06/20 04:30 TSH 1.01 uIU/mL (0.47-4.68) 04/16/20 04:10 Free T4 1.01 ng/dL (0.78-2.19) 04/16/20 04:10 Urine Color YELLOW 05/11/20 02:20 Urine Appearance CLEAR 05/11/20 02:20 Urine pH 6.0 (5.0-9.0) 05/11/20 02:20 Ur Specific [place] 1.010 05/11/20 02:20 Urine Protein 30 mg/dL (NEGATIVE) H 05/11/20 02:20 Urine Glucose (UA) NEGATIVE mg/dL (NEGATIVE) 05/11/20 02:20 Urine Ketones NEGATIVE mg/dL (NEGATIVE) 05/11/20 02:20 Urine Blood SMALL (NEGATIVE) H 05/11/20 02:20 Urine Nitrite NEGATIVE (NEGATIVE) 05/11/20 02:20 Urine Bilirubin NEGATIVE (NEGATIVE) 05/11/20 02:20 Urine Urobilinogen NEGATIVE mg/dL (<2.0) 05/11/20 02:20 Ur Leukocyte Esterase NEGATIVE (NEGATIVE) 05/11/20 02:20 Urine WBC (Auto) 1 /HPF 05/11/20 02:20 Urine RBC (Auto) 0 /HPF 05/11/20 02:20 U Hyaline Cast (Auto) 1 /LPF 05/11/20 02:20 Urine Bacteria (Auto) TRACE /HPF 05/02/20 12:55 Squamous Epi Cells Auto 1 /HPF 05/02/20 12:55 Urine Mucus (Auto) RARE /LPF 05/11/20 02:20 Urine Ascorbic Acid NEGATIVE (NEGATIVE) 05/11/20 02:20 Stl C. Difficile GDH Ag NEGATIVE (NEGATIVE) 04/28/20 13:30 Stl C.difficile Tox A&B NEGATIVE (NEGATIVE) 04/28/20 13:30 Time Trough Drawn 1340 05/07/20 13:40 Vancomycin Trough 24.3 ug/mL (5.0-20.0) H 05/07/20 13:40 Urine Opiates Screen NEGATIVE 04/11/20 17:43 Urine Methadone Screen NEGATIVE 04/11/20 17:43 Ur Barbiturates Screen NEGATIVE 04/11/20 17:43 Valproic Acid < 10.0 ug/mL (50.0-120.0) L 04/18/20 03:35 Ur Phencyclidine Scrn NEGATIVE 05/24/20 17:43 Ur Amphetamines Screen NEGATIVE 04/11/20 17:43 U Benzodiazepines Scrn UNCONFIRMED POSITIVE 04/11/20 17:43 Urine Cocaine Screen NEGATIVE 04/11/20 17:43 U Marijuana (THC) Screen NEGATIVE 04/11/20 17:43 SARS-CoV-2 (PCR) NEGATIVE (NEGATIVE) 04/10/20 08:15 Blood Type A POSITIVE 05/18/20 12:37 Blood Type Confirm A POSITIVE 04/22/20 13:25 Antibody Screen NEGATIVE 05/18/20 12:37 Crossmatch See Detail 05/18/20 12:37 04/11/20 04/11/20 04/13/20 01:02 15:35 04:43 CK-MB (CK-2) 2.41 Troponin I 0.077 0.261 0.126 Impressions: Foot X-Ray 04/09/20 20:34 IMPRESSION: Findings are consistent with osteomyelitis involving the lateral aspect of the fifth metatarsal base. Associated underlying pathologic fracture deformity. Superimposed foci of soft tissue gas at this site could indicate infection with a gas-forming organism. copyright 2011 [employer]- All Rights Reserved Abdomen/Pelvis CT 04/11/20 00:00 IMPRESSION: NO SIGNIFICANT OR ACUTE PROCESS IN THE ABDOMEN OR PELVIS. Chest CT 04/11/20 00:00 IMPRESSION: MILD CARDIOMEGALY. BILATERAL PLEURAL EFFUSIONS WITH FAINT ATELECTASIS. NO LOBAR INFILTRATES. Chest X-Ray 04/11/20 00:00 IMPRESSION: Mild-moderate mixed interstitial and airspace opacities. Differential diagnosis includes pulmonary edema, multifocal pneumonia, and chronic interstitial lung disease. Chest X-Ray 04/11/20 00:00 IMPRESSION: Satisfactory placement of supportive appliances.. Head CT 04/11/20 00:00 IMPRESSION: NORMAL BRAIN CT WITHOUT CONTRAST. EVIDENCE OF ACUTE STROKE: NO. Chest X-Ray 04/12/20 19:00 IMPRESSION: 1. No acute cardiopulmonary disease. 2. Endotracheal tube is in the upper thoracic trachea. Chest X-Ray 04/13/20 00:00 IMPRESSION: No pneumothorax. The right central venous catheter ends at the atrial caval junction. Venous Doppler Study 04/14/20 00:00 IMPRESSION: No sonographic evidence of acute DVT within the right lower extremity. Subcutaneous edema. Chest X-Ray 04/14/20 06:00 IMPRESSION: Unchanged radiographic appearance of the chest. Head CT 04/15/20 05:00 IMPRESSION: NORMAL BRAIN CT WITHOUT CONTRAST. SINUS DISEASE. EVIDENCE OF ACUTE STROKE: NO. Chest X-Ray 04/15/20 06:00 IMPRESSION: NO SIGNIFICANT CHANGE IN APPEARANCE OF THE CHEST. Chest X-Ray 04/16/20 06:00 IMPRESSION: Stable chest copyright 2010 [employer]- All Rights Reserved KUB X-Ray 04/16/20 23:19 IMPRESSION: The bowel gas pattern is nonobstructive and nonspecific. KUB X-Ray 04/17/20 07:01 IMPRESSION: Persistent ileus pattern Venous Doppler Study 04/20/20 00:00 IMPRESSION: NO EVIDENCE DVT OR SVT IN EITHER LEG. Chest X-Ray 04/20/20 05:00 IMPRESSION: Removal of the right IJ central line. Otherwise, no significant change compared to the prior exam. copyright 2010 [employer]- All Rights Reserved Chest X-Ray 04/21/20 05:00 IMPRESSION: No significant change. KUB X-Ray 04/23/20 00:00 IMPRESSION: NO RADIOGRAPHIC EVIDENCE FOR ACUTE ABDOMINAL DISEASE. Chest X-Ray 04/23/20 05:00 IMPRESSION: Increased patchy opacities in the mid right hemithorax and increased consolidation in the retrocardiac space. Clinical correlation for worsening pulmonary edema/ CHF is recommended. Chest X-Ray 04/24/20 00:00 IMPRESSION: Lines and tubes as above with appropriately positioned tracheostomy tube. Increased interstitial lung markings and patchy right mid lung airspace opa cities. Decreased retrocardiac consolidation. Left pleural effusion. Chest X-Ray 04/24/20 05:00 IMPRESSION: STABLE APPEARANCE OF THE CHEST. SUPPORT DEVICES UNCHANGED. Abdomen/Pelvis CT 04/25/20 00:00 IMPRESSION: Postprocedural changes from recent G-tube placement with small amounts of peritoneal free air. Contrast is present in the stomach and small bowel. Moderate bilateral pleural effusions and basilar atelectasis, increased compared with the prior study. PICC Line Insertion 04/30/20 00:00 IMPRESSION: SUCCESSFUL PLACEMENT OF A 5 FR DUAL LUMEN 42 CM PICC IN THE RIGHT BASILIC VEIN. Chest X-Ray 05/01/20 06:00 IMPRESSION: 1. Persistent volume loss in the left lung base which may be due to a combination of pleural fluid, atelectasis and/or inflammatory changes. 2. Suspect trace right pleural effusion. 3. Grossly stable life support lines and tubes. Chest X-Ray 05/02/20 00:00 IMPRESSION: NO ACUTE FINDINGS. Persistent left basilar airspace disease- pleural effusion. Soft Tissue Neck CT 05/03/20 00:00 IMPRESSION: Pansinusitis Advanced left lower molar dental caries with periapical tooth root lucencies Chest X-Ray 05/03/20 06:00 IMPRESSION: No change. Chest X-Ray 05/12/20 00:00 IMPRESSION: Borderline cardiomegaly. Cannot exclude mild pulmonary edema. Plan Health Concerns: Anoxic brain injury secondary to cardiopulmonary arrest (PEA arrest x2). Chronic ventilator dependence. Status post tracheostomy. Needs trach collar trials. Will need 24-hour nursing care. Enteral feeding. We will need to continue IV cefepime for Pseudomonas pneumonia and wound infection. Renal dosing required. Physical therapy: Range of motion treatment. Plan of Treatment: See above and health concerns. Goals: Nutrition: enteral feeding Respiratory: trach collar trials with the ultimate goal of liberating from mechanical ventilatory support. Maintain permanent tracheostomy. Neurologic: seizure prophylaxis Time Spent: Greater than 30 Minutes Stroke Is this a Stroke Patient?: No Acute Heart Failure - Is this a Heart Failure Patient?: Yes Documentation of LVEF assessment?: Yes LVEF: LVEF Greater Than 40% Anticoagulant Therapy: N/A Reason(s) not discharged on ARNI: Impaired/worsening renal functions Reason(s) not Discharged on ACEI: Impaied/worsening renal function
== END 2020-05-19 10:00 | DRG 3 ==
LOC: ER 20:04 → EH 04-10 01:02 → 4W 04-10 02:40 → ICU 04-11 01:31
PROVIDERS: ADMIT Internal Medicine Critical Care Medicine; ATTEND Internal Medicine Critical Care Medicine
PROC: 0QBN0ZX Excision of Right Metatarsal, Open Approach, Diagnostic (ICD-10-PCS; 2020-04-10)
PROC: 0QBL0ZX Excision of Right Tarsal, Open Approach, Diagnostic (ICD-10-PCS; 2020-04-10)
PROC: 5A1955Z Respiratory Ventilation, Greater than 96 Consecutive Hours (ICD-10-PCS; principal; 2020-04-10 10:30)
PROC: 0BH17EZ Insertion of Endotracheal Airway into Trachea, Via Natural or Artificial Opening (ICD-10-PCS; 2020-04-11)
PROC: 02HV33Z Insertion of Infusion Device into Superior Vena Cava, Percutaneous Approach (ICD-10-PCS; 2020-04-11)
PROC: 03HY32Z Insertion of Monitoring Device into Upper Artery, Percutaneous Approach (ICD-10-PCS; 2020-04-11)
PROC: 5A12012 Performance of Cardiac Output, Single, Manual (ICD-10-PCS; 2020-04-13)
PROC: 0DH64UZ Insertion of Feeding Device into Stomach, Percutaneous Endoscopic Approach (ICD-10-PCS; 2020-04-24)
PROC: 0B110F4 Bypass Trachea to Cutaneous with Tracheostomy Device, Open Approach (ICD-10-PCS; 2020-04-24 13:30)
PROC: 02HV33Z Insertion of Infusion Device into Superior Vena Cava, Percutaneous Approach (ICD-10-PCS; 2020-04-30)
PROC: 0Y6C0Z3 Detachment at Right Upper Leg, Low, Open Approach (ICD-10-PCS; 2020-05-01)
PROC: 30233N1 Transfusion of Nonautologous Red Blood Cells into Peripheral Vein, Percutaneous Approach (ICD-10-PCS; 2020-05-12)
DX: E11.52 Type 2 diabetes mellitus with diabetic peripheral angiopathy with gangrene (principal); J96.01 Acute respiratory failure with hypoxia; A48.0 Gas gangrene; A41.89 Other specified sepsis; J15.1 Pneumonia due to Pseudomonas; N17.0 Acute kidney failure with tubular necrosis; I46.9 Cardiac arrest, cause unspecified; R65.20 Severe sepsis without septic shock; J96.02 Acute respiratory failure with hypercapnia; G93.1 Anoxic brain damage, not elsewhere classified; M86.171 Other acute osteomyelitis, right ankle and foot; L97.516 Non-pressure chronic ulcer of other part of right foot with bone involvement without evidence of necrosis; N18.4 Chronic kidney disease, stage 4 (severe); E87.2 Acidosis; K56.7 Ileus, unspecified; J95.851 Ventilator associated pneumonia; S09.93XA Unspecified injury of face, initial encounter; Z20.828 Contact with and (suspected) exposure to other viral communicable diseases; E11.22 Type 2 diabetes mellitus with diabetic chronic kidney disease; D50.9 Iron deficiency anemia, unspecified; E87.6 Hypokalemia; E11.69 Type 2 diabetes mellitus with other specified complication; D47.3 Essential (hemorrhagic) thrombocythemia; K59.00 Constipation, unspecified; I12.9 Hypertensive chronic kidney disease with stage 1 through stage 4 chronic kidney disease, or unspecified chronic kidney disease; E11.621 Type 2 diabetes mellitus with foot ulcer; R50.9 Fever, unspecified; B96.5 Pseudomonas (aeruginosa) (mallei) (pseudomallei) as the cause of diseases classified elsewhere; B95.4 Other streptococcus as the cause of diseases classified elsewhere; B95.61 Methicillin susceptible Staphylococcus aureus infection as the cause of diseases classified elsewhere; B96.6 Bacteroides fragilis [B. fragilis] as the cause of diseases classified elsewhere; I25.10 Atherosclerotic heart disease of native coronary artery without angina pectoris; E11.51 Type 2 diabetes mellitus with diabetic peripheral angiopathy without gangrene; J01.40 Acute pansinusitis, unspecified; E11.65 Type 2 diabetes mellitus with hyperglycemia; I11.0 Hypertensive heart disease with heart failure; K20.9 Esophagitis, unspecified; K29.70 Gastritis, unspecified, without bleeding; K59.03 Drug induced constipation; R40.2434 Glasgow coma scale score 3-8, 24 hours or more after hospital admission; G40.409 Other generalized epilepsy and epileptic syndromes, not intractable, without status epilepticus; I49.3 Ventricular premature depolarization; X58.XXXA Exposure to other specified factors, initial encounter; Y83.8 Other surgical procedures as the cause of abnormal reaction of the patient, or of later complication, without mention of misadventure at the time of the procedure; Z83.3 Family history of diabetes mellitus; Z79.82 Long term (current) use of aspirin; Z79.4 Long term (current) use of insulin; Z87.891 Personal history of nicotine dependence; Z89.612 Acquired absence of left leg above knee; Z82.49 Family history of ischemic heart disease and other diseases of the circulatory system
CPT/HCPCS: 00320; 01232; 01480; 36415; 36430; 36556; 36573; 36600; 36620; 70450; 70490; 71045; 71250; 74018; 74176; 80048; 80053; 80076; 80164; 80202; 80307; 81001; 82140; 82150; 82330; 82550; 82553; 82803; 82947; 82962; 82977; 83036; 83605; 83690; 83735; 84100; 84134; 84145; 84439; 84443; 84478; 84484; 85025; 85027; 85610; 85730; 86140; 86850; 86900; 86901; 86920; 87040; 87070; 87075; 87077; 87101; 87186; 87205; 87324; 87449; 87635; 88307; 88311; 92950; 93005; 93010; 93306; 93926; 93970; 93971; 94002; 94003; 94640; 94668; 94799; 95819; 96361; 96365; 99221; 99223; 99238; 99239; 99285; 99291; 99292; C9113; C9803; J0171; J0282; J0330; J0360; J0610; J0692; J0744; J0878; J1265; J1450; J1642; J1644; J1815; J1940; J2060; J2185; J2248; J2250; J2270; J2405; J2543; J2704; J2765; J3010; J3260; J3370; J3480; J3490; J7030; J7040; J7050; J7060; J7120; J7620; P9016; P9041; P9047